=== PATIENT | male | born 1945 | race Caucasian/White ===

== ENCOUNTER → 2016-07-27 | Outpatient (REF) | payer MEDICARE ==
[~2016-07-27] MED LIST: ATEN100T PO; ENOX100I3 SC; EQL50TAB4 PO; GLUC1CAP9 PO; PRAV40TA2 PO; WARF-23 PO; WARF-60 PO; WARF4TAB52 PO; ZINC30TA3 PO
[2016-07-27 12:37] LABS: INR 2.21
== END ==
LOC: M SFHCADAM 08:11
PROVIDERS: ATTEND Physician Assistant Medical
DX: Z51.81 Encounter for therapeutic drug level monitoring (principal); Z79.01 Long term (current) use of anticoagulants

== ENCOUNTER → 2016-08-03 | Outpatient (REF) | payer MEDICARE ==
[2016-08-03 12:57] LABS: INR 2.78
== END ==
LOC: M SFHCADAM 07:59
PROVIDERS: ATTEND Physician Assistant Medical
DX: Z51.81 Encounter for therapeutic drug level monitoring (principal); Z79.01 Long term (current) use of anticoagulants

== ENCOUNTER → 2016-08-17 | Outpatient (REF) | payer MEDICARE ==
[2016-08-17 12:23] LABS: INR 2.83
== END ==
LOC: M SFHCADAM 09:10
PROVIDERS: ATTEND Physician Assistant Medical
DX: Z79.01 Long term (current) use of anticoagulants (principal)

== ENCOUNTER → 2016-09-14 | Outpatient (REF) | payer MEDICARE ==
[2016-09-14 09:26] LABS: INR 3.18
== END ==
LOC: M SFHCADAM 08:00
PROVIDERS: ATTEND Physician Assistant Medical
DX: Z79.01 Long term (current) use of anticoagulants (principal)

== ENCOUNTER → 2016-10-12 | Outpatient (REF) | payer MEDICARE ==
[2016-10-12 12:56] LABS: INR 2.76
== END ==
LOC: M SFHCADAM 07:58
PROVIDERS: ATTEND Physician Assistant Medical
DX: Z51.81 Encounter for therapeutic drug level monitoring (principal); Z95.2 Presence of prosthetic heart valve

== ENCOUNTER → 2016-11-16 | Outpatient (REF) | payer MEDICARE ==
[2016-11-16 12:57] LABS: INR 3.12
== END ==
LOC: M SFHCADAM 12:04
PROVIDERS: ATTEND Physician Assistant Medical
DX: Z79.01 Long term (current) use of anticoagulants (principal)

== ENCOUNTER → 2016-12-15 | Outpatient (REF) | payer MEDICARE ==
[2016-12-15 12:49] LABS: INR 3.29
== END ==
LOC: M SFHCADAM 07:47
PROVIDERS: ATTEND Physician Assistant Medical
DX: Z79.01 Long term (current) use of anticoagulants (principal)

== ENCOUNTER → 2017-01-18 | Outpatient (REF) | payer MEDICARE ==
[2017-01-18 12:22] LABS: INR 2.9
== END ==
LOC: M SFHCADAM 12:00
PROVIDERS: ATTEND Physician Assistant Medical
DX: Z79.01 Long term (current) use of anticoagulants (principal)

== ENCOUNTER → 2017-02-14 | Outpatient (REF) | payer MEDICARE ==
[2017-02-14 13:35] LABS: INR 3.15
== END ==
LOC: M SFHCADAM 07:46
PROVIDERS: ATTEND Physician Assistant Medical
DX: Z79.01 Long term (current) use of anticoagulants (principal)

== ENCOUNTER → 2017-03-22 | Outpatient (REF) | payer MEDICARE ==
[2017-03-22 13:36] LABS: INR 2.79
== END ==
LOC: M SFHCADAM 07:33
PROVIDERS: ATTEND Physician Assistant Medical
DX: Z79.01 Long term (current) use of anticoagulants (principal)

== ENCOUNTER → 2017-03-25 | Outpatient (REF) | payer MEDICARE | LOC: M SFHCADAM 10:16 | PROVIDERS: ATTEND Physician Assistant Medical | DX: Z79.01 Long term (current) use of anticoagulants (principal); Z53.9 Procedure and treatment not carried out, unspecified reason ==

== ENCOUNTER → 2017-04-19 | Outpatient (REF) | payer MEDICARE ==
[2017-04-19 14:22] LABS: INR 2.64
== END ==
LOC: M SFHCADAM 07:38
PROVIDERS: ATTEND Physician Assistant Medical
DX: Z79.01 Long term (current) use of anticoagulants (principal)

== ENCOUNTER → 2017-05-18 | Outpatient (REF) | payer MEDICARE ==
[2017-05-18 13:48] LABS: INR 2.62
== END ==
LOC: M SFHCADAM 08:58
PROVIDERS: ATTEND Physician Assistant Medical
DX: Z79.01 Long term (current) use of anticoagulants (principal); Z95.2 Presence of prosthetic heart valve

== ENCOUNTER → 2017-06-23 | Outpatient (REF) | payer MEDICARE ==
[2017-06-23 13:35] LABS: INR 3.85
== END ==
LOC: M SFHCADAM 07:50
PROVIDERS: ATTEND Physician Assistant Medical
DX: Z51.81 Encounter for therapeutic drug level monitoring (principal); Z79.01 Long term (current) use of anticoagulants; Z95.2 Presence of prosthetic heart valve

== ENCOUNTER → 2017-07-19 | Outpatient (REF) | payer MEDICARE ==
[2017-07-19 12:52] LABS: INR 3.76
== END ==
LOC: M SFHCADAM 10:15
PROVIDERS: ATTEND Physician Assistant Medical
DX: Z79.01 Long term (current) use of anticoagulants (principal); Z95.2 Presence of prosthetic heart valve

== ENCOUNTER → 2017-10-03 | Outpatient (REF) | payer MEDICARE ==
[2017-10-03 19:11] LABS: INR 3.21; PROTHROMBIN TIME 34.4 SECONDS (12.4-14.5)
== END ==
LOC: M SFHCADAM 08:27
DX: Z79.01 Long term (current) use of anticoagulants (principal)
CPT/HCPCS: 85610

== ENCOUNTER → 2017-11-15 | Outpatient (REF) | payer MEDICARE ==
[2017-11-15 20:27] LABS: BASO % 0.6 % (0.0-1.0); EOS # 0.1 10^3/uL (0.0-0.50); EOS % 2.5 % (0.0-3.0); HEMATOCRIT 48.6 % (42.0-52.0); HEMOGLOBIN 16.1 g/dl (13.5-17.5); IMMATURE GRANULOCYTE % 0.2 % (0-3.0); LYMPH % 19.8 % (24.0-44.0); MEAN CORPUSCULAR HEMOGLOBIN 27.6 pg (27.0-33.0); MEAN CORPUSCULAR HGB CONC 33.1 g/dl (32.0-36.5); MEAN CORPUSCULAR VOLUME 83.4 fl (80.0-96.0); MONO # 0.5 10^3/uL (0.0-0.8); MONO % 10.1 % (0.0-5.0); NEUTROPHILS # 3.5 10^3/uL (1.8-7.7); NEUTROPHILS % 66.8 % (36.0-66.0); PLATELET COUNT, AUTOMATED 198 10^3/uL (150-450); RED BLOOD COUNT 5.83 10^6/uL (4.30-6.10); RED CELL DISTRIBUTION WIDTH 15.5 % (11.5-14.5); WHITE BLOOD COUNT 5.3 10^3/uL (4.0-10.0)
[2017-11-15 20:52] LABS: ESTIMATED AVERAGE GLUCOSE 114 MG/DL (60-110); HEMOGLOBIN A1c 5.6 %
[2017-11-15 21:04] LABS: ALBUMIN 3.9 GM/DL (3.2-5.2); ALBUMIN/GLOBULIN RATIO 1.34 (1.00-1.93); ALKALINE PHOSPHATASE 83 U/L (45-117); ALT/SGPT 22 U/L (12-78); ANION GAP 8 MEQ/L (8-16); AST/SGOT 21 U/L (7-37); BILIRUBIN,TOTAL 0.6 MG/DL (0.2-1.0); BLOOD UREA NITROGEN 17 MG/DL (7-18); CALCIUM LEVEL 8.6 MG/DL (8.8-10.2); CARBON DIOXIDE LEVEL 25 MEQ/L (21-32); CHLORIDE LEVEL 109 MEQ/L (98-107); CHOLESTEROL LEVEL 161 MG/DL (<200); CHOLESTEROL RISK RATIO 3.659 (<5); GLOMERULAR FILTRATION RATE > 60.0 (>42); GLUCOSE, FASTING 135 MG/DL (70-100); HDL CHOLESTEROL 44 MG/DL (>40); LDL CHOLESTEROL 70.6 MG/DL (<100); NON-HDL-C 117 MG/DL; SODIUM LEVEL 142 MEQ/L (136-145); TOTAL PROTEIN 6.8 GM/DL (6.4-8.2); TRIGLYCERIDES LEVEL 232 MG/DL (<150)
== END ==
LOC: M SFHCADAM 13:39
DX: E78.4 Other hyperlipidemia (principal); I10 Essential (primary) hypertension; Z79.01 Long term (current) use of anticoagulants; Z79.899 Other long term (current) drug therapy
CPT/HCPCS: 84443

== ENCOUNTER → 2017-11-29 | Outpatient (CLI) | payer MEDICARE | LOC: M CARPUL 09:08 | DX: Z95.2 Presence of prosthetic heart valve (principal) | CPT/HCPCS: 93306 ==

== ENCOUNTER 2018-05-31 18:32 | Emergency (ER) | payer MEDICARE ==
[2018-05-31] MEDS: NITROGLYCERIN 0.4 MG SUBL TABLET SL (18:58)
[2018-05-31 19:13] LABS: BASO % 0.5 % (0.0-1.0); EOS # 0.1 10^3/uL (0.0-0.50); EOS % 1.6 % (0.0-3.0); HEMATOCRIT 49.1 % (42.0-52.0); HEMOGLOBIN 16.3 g/dl (13.5-17.5); IMMATURE GRANULOCYTE % 0.2 % (0-3.0); LYMPH # 1.6 10^3/uL (1.5-4.5); LYMPH % 19.2 % (24.0-44.0); MEAN CORPUSCULAR HEMOGLOBIN 28.7 pg (27.0-33.0); MEAN CORPUSCULAR HGB CONC 33.2 g/dl (32.0-36.5); MEAN CORPUSCULAR VOLUME 86.4 fl (80.0-96.0); MONO # 0.7 10^3/uL (0.0-0.8); NEUTROPHILS # 5.7 10^3/uL (1.8-7.7); NEUTROPHILS % 69.5 % (36.0-66.0); PLATELET COUNT, AUTOMATED 171 10^3/uL (150-450); RED BLOOD COUNT 5.68 10^6/uL (4.30-6.10); RED CELL DISTRIBUTION WIDTH 14.6 % (11.5-14.5); WHITE BLOOD COUNT 8.2 10^3/uL (4.0-10.0)
[2018-05-31] MEDS ORDERED: MORPHINE 4 MG/ML 1ML VIAL/SYRINGE (J2270) As Ordered (19:21)
[2018-05-31 19:23] LABS: INR 2.72; PROTHROMBIN TIME 29.4 SECONDS (12.1-14.4)
[2018-05-31] MEDS: MORPHINE 4 MG/ML 1ML VIAL/SYRINGE (J2270) IV ×2 (19:28→20:04)
[2018-05-31 19:39] LABS: ALBUMIN 3.5 GM/DL (3.2-5.2); ALBUMIN/GLOBULIN RATIO 1.06 (1.00-1.93); ALKALINE PHOSPHATASE 73 U/L (45-117); ALT/SGPT 25 U/L (12-78); ANION GAP 10 MEQ/L (8-16); AST/SGOT 20 U/L (7-37); BILIRUBIN,DIRECT 0.1 MG/DL (0.0-0.2); BILIRUBIN,TOTAL 0.4 MG/DL (0.2-1.0); BLOOD UREA NITROGEN 17 MG/DL (7-18); CALCIUM LEVEL 8.1 MG/DL (8.8-10.2); CARBON DIOXIDE LEVEL 24 MEQ/L (21-32); CHLORIDE LEVEL 105 MEQ/L (98-107); CPK CREATINE PHOSPHOKINASE 102 U/L (39-308); GLOMERULAR FILTRATION RATE 57.3 (>42); GLUCOSE, FASTING 141 MG/DL (70-100); LIPASE 197 U/L (73-393); MB/CK RELATIVE INDEX 3.73 (< OR =4); POTASSIUM SERUM 3.8 MEQ/L (3.5-5.1); SODIUM LEVEL 139 MEQ/L (136-145); TOTAL PROTEIN 6.8 GM/DL (6.4-8.2); TROPONIN I 0.22 NG/ML (< 0.10)
[2018-05-31] MEDS ORDERED: HEPARIN 25,000 UNITS/250 ML D5W BAG (100 UNITS/ML) As Ordered (19:53)
[2018-05-31] MEDS: HEPARIN SOD (PORCINE) 5000 UNITS/ML VIAL IV (19:55)
[2018-05-31] MEDS: HEPARIN DRIP 25,000 UNITS in APPROPRIATE DILUENT 1 EA IV (19:56)
== END 2018-05-31 20:38 | disposition short-term general hospital (02) ==
LOC: M ED 18:32
DX: I21.3 ST elevation (STEMI) myocardial infarction of unspecified site (principal); I51.7 Cardiomegaly; I51.9 Heart disease, unspecified; I10 Essential (primary) hypertension; E78.5 Hyperlipidemia, unspecified; Z95.2 Presence of prosthetic heart valve; Z87.891 Personal history of nicotine dependence; Z79.01 Long term (current) use of anticoagulants; Z79.899 Other long term (current) drug therapy
CPT/HCPCS: J2270

== ENCOUNTER 2018-06-19 11:31 | Inpatient (IN) | payer MEDICARE ==
[~2018-06-19] VITALS: Ht 177.8 cm; Wt 82.4 kg
[2018-06-19] MEDS ORDERED: LOPERAMIDE ORAL SOLN 1MG/5ML UD PO PRN (16:45)
[2018-06-19 19:25] VITALS: BP 138/85
[2018-06-19] MEDS ORDERED: DILT240C77 PO (20:17)
[2018-06-19] MEDS ORDERED: PANT40TA3 PO (20:17)
[2018-06-19] MEDS ORDERED: LOPE2CAP PO (20:17)
[2018-06-19] MEDS ORDERED: WARF4TAB52 PO (20:17)
[2018-06-19] MEDS ORDERED: PROZ10CA7 PO (20:17)
[2018-06-19] MEDS ORDERED: AMIO200T PO (20:17)
[2018-06-19] MEDS ORDERED: METO1TAB7 PO (20:26)
[2018-06-19] MEDS: PRAVASTATIN 20 MG TAB PO SCH (20:52)
[2018-06-19] MEDS ORDERED: WARFARIN SOD 5 MG TAB PO ONE (21:00)
[2018-06-20 05:30] VITALS: BP 133/94
[2018-06-20 07:06] LABS: BASO % 0.3 % (0.0-1.0); EOS # 0.1 10^3/uL (0.0-0.50); EOS % 0.8 % (0.0-3.0); HEMATOCRIT 40.6 % (42.0-52.0); HEMOGLOBIN 12.8 g/dl (13.5-17.5); LYMPH # 0.8 10^3/uL (1.5-4.5); LYMPH % 9.1 % (24.0-44.0); MEAN CORPUSCULAR HEMOGLOBIN 27.6 pg (27.0-33.0); MEAN CORPUSCULAR HGB CONC 31.5 g/dl (32.0-36.5); MEAN CORPUSCULAR VOLUME 87.5 fl (80.0-96.0); MONO # 0.8 10^3/uL (0.0-0.8); MONO % 9.3 % (0.0-5.0); NEUTROPHILS # 7.1 10^3/uL (1.8-7.7); NEUTROPHILS % 80.1 % (36.0-66.0); PLATELET COUNT, AUTOMATED 334 10^3/uL (150-450); RED BLOOD COUNT 4.64 10^6/uL (4.30-6.10); WHITE BLOOD COUNT 8.9 10^3/uL (4.0-10.0)
[2018-06-20 07:14] LABS: PROTHROMBIN TIME 31.8 SECONDS (12.1-14.4)
[2018-06-20 07:26] LABS: ALBUMIN 2.4 GM/DL (3.2-5.2); ALT/SGPT 28 U/L (12-78); BILIRUBIN,TOTAL 0.6 MG/DL (0.2-1.0); BLOOD UREA NITROGEN 20 MG/DL (7-18); CALCIUM LEVEL 8.2 MG/DL (8.8-10.2); CARBON DIOXIDE LEVEL 31 MEQ/L (21-32); CHLORIDE LEVEL 103 MEQ/L (98-107); CREATININE FOR GFR 0.87 MG/DL (0.70-1.30); GLOMERULAR FILTRATION RATE > 60.0 (>42); GLUCOSE, FASTING 88 MG/DL (70-100); POTASSIUM SERUM 3.8 MEQ/L (3.5-5.1); SODIUM LEVEL 140 MEQ/L (136-145); TOTAL PROTEIN 6.5 GM/DL (6.4-8.2)
[2018-06-20] MEDS: PANTOPRAZOLE 40MG TAB (PROTONIX) PO SCH (09:11)
[2018-06-20] MEDS: FLUoxetine 10 MG CAP PO SCH (09:11)
[2018-06-20] MEDS: AMIODARONE 200 MG TAB (PACERONE) PO SCH (09:11)
[2018-06-20] MEDS: METOPROLOL SUCC (TopROL XL) 50MG **XL** TAB PO SCH (09:11)
[2018-06-20 14:00] VITALS: BP 132/80
--- NOTE | 2018-06-20 15:45 | HPEPDOC ---
Supervisor Print Line Note DATE OF ADMISSION: Jun 19, 2018 at 19:25 SOURCE OF ADMISSION INFORMATION: [place]'s record, patient and CHIEF COMPLAINT: stroke HISTORY OF PRESENT ILLNESS: 73M pmh multiple CVAs, aortic valve replacement on Coumadin, HTN who presented to [facility] ED complaining of pressing chest pain and found to have an NSTEMI. His anticoagulation was held and he was placed on Heparin drip in preparation for cardiac catheterization on 06-02-18 where he was found to have moderate disease of the mid to distal LAD, and a severe focal lesion in the mid portion of a small PDA. It was determined that a mechanical intervention was not safe given the proximity of the cardiac lesion to his mechanical valve and he was maintained on medical treatment. Following the procedure he developed left sided weakness, stat CT on 06-03-18 showed "multiple chronic infarcts, atrophy, and chronic small vessel ischemic changes. No acute cortical infarct, mass, or hemorrhage." MRI brain showed "acute tiny MCA infarctions within the parietal lobes and right frontal lobe and additionally within acute lacunar infarction left cerebellum." CTA neck on 06-03-18 demonstrated hemorrhage in the mediastinum and pericardium and CTA head revealed no significant cerebral s tenosis, no aneurysm, dissection or vascular thrombosis. Patient later developed right leg and arm weakness and concern for spinal cord hemorrhage led to ordering MRI spine which was negative for spinal cord lesions. Repeat MRI brain on 06-05-18 showed "new acute infarctions within the left anterior cerebellum, right frontal lobe...progression of acute embolic infarctions involving the bilateral cerebral hemispheres and the left cerebellum". He then developed new onset Atrial Fibrillation and RVR requiring Cardizem drip and was transitioned to Amiodarone. He also had episodes of diarrhea, C diff negative, and required a rectal tube. CT abdomen/Pelvis revealed a distended gallbladder, small bilateral pleural effusions, and an aneurysm of the ascending thoracic aorta. He was started on loperamide and his loose stool resolved. He was evaluated by INDEPENDENT FILM MAKER who placed him on a honey-thickened and mechanical soft diet. REVIEW OF SYSTEMS: The following is a completed review of systems and has been reviewed. Review of systems otherwise unremarkable. PAIN: Patient self reports no pain EYES: Negative EARS, NOSE, & THROAT: +dysphagia CARDIOVASCULAR: +AVR and Afib, recent NSTEMI PULMONARY: Negative. Denies shortness of breath, +cough GASTROINTESTINAL: + diarrhea improving GENITOURINARY: no retention or dysuria MUSCULOSKELETAL: left LE weakness NEUROLOGICAL: left sided hemiparesis HEMATOLOGICAL: on Coumadin SKIN: intact PSYCHIATRIC: Unremarkable All other review of systems found to be negative. PAST MEDICAL HISTORY: multiple CVAs, aortic valve replacement on Coumadin, HTN, depression PAST SURGICAL HISTORY: Aortic Valve replacement 33 years ago ALLERGIES: Please see below. MEDICATIONS: Please see below. 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 GENERAL: Pleasant and cooperative. No acute distress. HEENT: PERRL. Extraocular movements intact. Clear conjunctiva, left sided facial droop CARDIOVASCULAR: Regular rate and rhythm. No murmurs, rubs, or gallops LUNGS: Mostly clear to auscultation bilaterally. No wheezes, however + rhonchi, +cough ABDOMEN:Soft, nontender, nondistended. Positive bowel sounds. Normal active bowel sounds NEUROLOGICAL: Alert and oriented times three. Cranial nerves II through XII jarad ssly intact with eyebrow sparing left facial droop, Sensation grossly intact in all 4 limbs EXTREMITIES: 5/5 strength left elbow flexors/extensors, wrist extensors, hygiene teacher and abduction 3/5 right elbow flexion and extension, 3+ wrist extension, 3+ hygiene teacher 5-/5 left hip flexors, knee extensors, ankle DF and EHL, plantar flexion 1/5 right hip flexion, knee extensors, ankle DF and EHL, trace DF SKIN: intact no rashes LABS: INR 2.93 on 06/18/18 C diff negative IMAGING: Imaging documentation personally reviewed by record. FUNCTIONAL STATUS: Premorbid: Independent with all activities of daily life as well as mobility On Admission: Max-Total assist for all functional transfers, unable to ambulate given right LE paresis. GOALS: Modified independent from wheelchair level, Contact guard with RW for household distances, Modified independent with dressing, grooming, Supervision for bathing, medical optimization, family training, assess for DMEs. ASSESSMENT:73-year-old M with past medical history of Aortic Valve replacement, Afib, multiple CVAs who presents status post NSTEMI complicated by stroke PLAN: 1. 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, INDEPENDENT FILM MAKER assess for DME 2. Neuro: s/p recent bilateral embolic strokes in setting of newly diagnosed Afib and AVR, continue statin, Coumadin, rate and rhythm control -Fluoxetine for motor recovery 3. Cardiac: pmh aVR with mechanical valve, not followed by drapery maker, will refer to Dr. Alfaro- on Coumadin, diltiazem, amiodarone, and beta michelle family medicine consulted, monitor daily INRs goal 2.5-3.5 4. GI: recent hx of diarrhea, Loperamide prn loose stool, monitor for signs of infection 5. GI ppx: Protonix 6. : f/u admission UA and Ucx 7. Dispo: TBD POST ADMISSION PHYSICIAN EVALUATION: Medical and functional status: Description of medical status, medical assessment: As above. Rehabilitation diagnosis and current and prior cold morbid medical conditions as above. Risk of complications and plans to mitigate them as above. Description of functional status current status is as above. Prior status as above. Status compared to preadmission: There are no clinically significant differences between the patient's current status and the information described on the preadmission screening document. Treatment plan anticipated: Treatment plan is as described above. Required disciplines including physical therapy, occupational therapy, others as noted above. Intensity of services: 3 hours a day, 6 days a week. Special considerations: There are no specific special or safety considerations that would likely preclude immediate implementation of an intensive rehabilitation program or subsequently influence the plan of care. ATTESTATION: Considering all the information above, it is my best judgment that this patient requires intensive rehabilitation therapy as described above and an inpatient hospital environment due to the complexity of nursing, medical, and rehabilitation needs required by the patient. Furthermore, this patient can reasonably be expected to participate in an benefit from an inpatient rehabilitation stay with an interdisciplinary team approach to the delivery of rehabilitation care under the direction and supervision of rehabilitation physician. PROGNOSIS: Excellent ESTIMATED LENGTH OF STAY:18-21 days. PROJECTED DISCHARGE DESTINATION: Home with family support and any durable medical equipment required to increase functional safety and mobility. TIME SPENT COUNSELING AND COORDINATING INITIAL CARE: Greater than 70 minutes. Vital Signs Vital Sign - Last 24 Hours 06/19/18 06/20/18 06/20/18 19:25 05:30 09:11 Temp 97.4 98.5 Pulse 93 91 98 Resp B/P (MAP) 138/85 (102) 133/94 (107) 141/92 Pulse Ox 93 91 O2 Delivery Room Air Room Air Laboratory Data CBC/BMP Laboratory Tests 06/20/18 06:29 Red Blood Count 4.64, Mean Corpuscular Volume 87.5, Mean Corpuscular Hemoglobin 27.6, Mean Corpuscular Hemoglobin Concent 31.5 L, Red Cell Distribution Width 15.3 H, Neutrophils (%) (Auto) 80.1 H, Lymphocytes (%) (Auto) 9.1 L, Monocytes (%) (Auto) 9.3 H, Eosinophils (%) (Auto) 0.8, Basophils (%) (Auto) 0.3, Neutrophils # (Auto) 7.1, Lymphocytes # (Auto) 0.8 L, Monocytes # (Auto) 0.8, Eosinophils # (Auto) 0.1, Basophils # (Auto) 0.0, Calcium Level 8.2 L, Aspartate Amino Transf (AST/SGOT) 14, Alanine Aminotransferase (ALT/SGPT) 28, Alkaline Phosphatase 87, Total Bilirubin 0.6, Total Protein 6.5, Albumin 2.4 L Labs 24H Laboratory Tests 2 06/20/18 06:29: Immature Granulocyte % (Auto) 0.4, White Blood Count 8.9, Red Blood Count 4.64, Hemoglobin 12.8L, Hematocrit 40.6L, Mean Corpuscular Volume 87.5, Mean Corpuscular Hemoglobin 27.6, Mean Corpuscular Hemoglobin Concent 31.5L, Red Cell Distribution Width 15.3H, Platelet Count 334, Neutrophils (%) (Auto) 80.1H, Lymphocytes (%) (Auto) 9.1L, Monocytes (%) (Auto) 9.3H, Eosinophils (%) (Auto) 0.8, Basophils (%) (Auto) 0.3, Neutrophils # (Auto) 7.1, Lymphocytes # (Auto) 0.8L, Monocytes # (Auto) 0.8, Eosinophils # (Auto) 0.1, Basophils # (Auto) 0.0, Nucleated Red Blood Cells % (auto) 0.0, Prothrombin Time 31.8H, Prothromb Time International Ratio 3.00, Anion Gap 6L, Glomerular Filtration Rate > 60.0, Blood Urea Nitrogen 20H, Creatinine 0.87, Sodium Level 140, Potassium Level 3.8, Chlor hortensia Level 103, Carbon Dioxide Level 31, Calcium Level 8.2L, Aspartate Amino Transf (AST/SGOT) 14, Alanine Aminotransferase (ALT/SGPT) 28, Alkaline Phosphatase 87, Total Bilirubin 0.6, Total Protein 6.5, Albumin 2.4L, Albumin/Globulin Ratio 0.59L Home Medications Scheduled Amiodarone HCl (Amiodarone HCl) 200 Mg Tab, 200 MG PO DAILY, (Reported) Diltiazem Hcl (Diltiazem HCl ER) 240 Mg Cap, 240 MG PO DAILY, (Reported) Fluoxetine HCl (Prozac) 10 Mg Cap, 10 MG PO DAILY, (Reported) Metoprolol Succinate (Metoprolol Succinate ER) 50 Mg Tab, 50 MG PO DAILY, (Reported) Pantoprazole Sodium (Pantoprazole Sodium) 40 Mg Tab, 40 MG PO DAILY, (Reported) Pravastatin Sod (Pravastatin Sodium) 40 Mg Tab, 40 MG PO QHS, (Reported) Warfarin Sod (Warfarin Sodium) 6 Mg Tab, 6 MG PO Q2D, (Reported) Warfarin Sod (Warfarin Sodium) 5 Mg Tab, 5 MG PO Q2D, (Reported) TAKES WITH 0.5MG FOR 5.5MG TOTAL Warfarin Sod (Warfarin Sodium) 1 Mg Tab, 0.5 MG PO Q2D, (Reported) TAKES WITH 5MG FOR 5.5MG TOTAL Scheduled PRN Loperamide HCl (Loperamide HCl) 2 Mg Tab, 2 MG PO TID PRN for DIARRHEA, (Reported) Allergies Coded Allergies: No Known Allergies (Unverified , 07/15/16) JAC LUNA MD Jun 20, 2018 11:04
--- NOTE | 2018-06-20 15:46 | NUR ---
Pt seen this day for clinical swallow eval. Recommendation: Mechanical Soft (NDD Level 3) solids and honey-thick liquids. Rx: whole with honey-thick liquids. Cookie swallow recommended to r/o silent aspiration, d/t significant risk of silent aspiration following onset of CVA. Addendum: 06/20/18 at 1547 by SEBASTIEN CRAFT [facility] SP Amended: Links added.
--- NOTE | 2018-06-20 16:32 | REP ---
Clinical: Cough. Technique: AP and lateral. Findings: Mediastinum and cardiac silhouette are stable. Lung aguilar demonstrate chronic interstitial changes. No obvious acute consolidation, effusion, or pneumothorax. Skeletal structures intact. Evidence of prior sternotomy and aortic valve repair. Impression: Chronic interstitial changes. No acute cardiopulmonary process appreciated. Electronically Signed by Edmond Pro MD 06/20/2018 04:22 P
[2018-06-20 17:03] LABS: APPEARANCE, URINE CLOUDY (CLEAR); BACTERIA, URINE AUTO 3+ (NEGATIVE); BILIRUBIN, URINE AUTO NEGATIVE (NEGATIVE); BLOOD, URINE BLOOD NEGATIVE (NEGATIVE); COLOR, URINE YELLOW (YELLOW); GLUCOSE, URINE (UA) AUTO NEGATIVE (NEGATIVE); KETONE, URINE AUTO NEGATIVE (NEGATIVE); LEUKOCYTE ESTERASE, URINE AUTO 3+ (NEGATIVE); NITRITE, URINE AUTO NEGATIVE (NEGATIVE); PROTEIN, URINE AUTO NEGATIVE (NEGATIVE); RBC, URINE AUTO 11 /HPF (0-3); SPECIFIC GRAVITY URINE AUTO 1.019 (1.002-1.035); SQUAMOUS EPITHELIAL CELL UR AU 0 /HPF (0-6); WBC, URINE AUTO 151 /HPF (0-3)
[2018-06-20 20:00] VITALS: BP 132/86
[2018-06-20] MEDS: PRAVASTATIN 20 MG TAB PO SCH (20:32)
[2018-06-20] MEDS: zolPIDEM TARTRATE 5 MG TAB PO SCH (20:32)
[2018-06-21 06:00] VITALS: BP 140/89
[2018-06-21 07:10] LABS: BASO % 0.4 % (0.0-1.0); EOS # 0.1 10^3/uL (0.0-0.50); EOS % 1.6 % (0.0-3.0); HEMATOCRIT 39.9 % (42.0-52.0); HEMOGLOBIN 12.7 g/dl (13.5-17.5); LYMPH # 0.9 10^3/uL (1.5-4.5); LYMPH % 12.3 % (24.0-44.0); MEAN CORPUSCULAR HEMOGLOBIN 27.7 pg (27.0-33.0); MEAN CORPUSCULAR HGB CONC 31.8 g/dl (32.0-36.5); MEAN CORPUSCULAR VOLUME 87.1 fl (80.0-96.0); MONO # 0.7 10^3/uL (0.0-0.8); MONO % 9.7 % (0.0-5.0); NEUTROPHILS # 5.2 10^3/uL (1.8-7.7); NEUTROPHILS % 75.6 % (36.0-66.0); PLATELET COUNT, AUTOMATED 261 10^3/uL (150-450); RED BLOOD COUNT 4.58 10^6/uL (4.30-6.10); WHITE BLOOD COUNT 6.9 10^3/uL (4.0-10.0)
[2018-06-21 07:18] LABS: INR 3.03; PROTHROMBIN TIME 32.1 SECONDS (12.1-14.4)
[2018-06-21 07:24] LABS: BLOOD UREA NITROGEN 20 MG/DL (7-18); CALCIUM LEVEL 8.4 MG/DL (8.8-10.2); CARBON DIOXIDE LEVEL 29 MEQ/L (21-32); CHLORIDE LEVEL 104 MEQ/L (98-107); CREATININE FOR GFR 0.81 MG/DL (0.70-1.30); GLOMERULAR FILTRATION RATE > 60.0 (>42); GLUCOSE, FASTING 100 MG/DL (70-100); POTASSIUM SERUM 3.6 MEQ/L (3.5-5.1); SODIUM LEVEL 138 MEQ/L (136-145)
[2018-06-21] MEDS: METOPROLOL SUCC (TopROL XL) 50MG **XL** TAB PO SCH (07:49)
[2018-06-21] MEDS: FLUoxetine 10 MG CAP PO SCH (07:50)
[2018-06-21] MEDS: PANTOPRAZOLE 40MG TAB (PROTONIX) PO SCH (07:50)
[2018-06-21] MEDS: AMIODARONE 200 MG TAB (PACERONE) PO SCH (07:50)
[2018-06-21] MEDS ORDERED: E-Z-PAQUE 96% w/w SUSP 176GM BTL As Ordered ONE (11:18)
[2018-06-21] MEDS ORDERED: VARIBAR NECTAR 40% w/v 240ML SUSP BTL As Ordered ONE (11:18)
[2018-06-21] MEDS ORDERED: VARIBAR PUDDING 40% w/v 230ML TUBE As Ordered ONE (11:18)
[2018-06-21] MEDS ORDERED: BARIUM SULFATE 700 MG TABLET (E-Z-DISK) As Ordered ONE (11:45)
--- NOTE | 2018-06-21 13:11 | REP ---
MODIFIED BARIUM SWALLOW: 06/21/2018. Clinical history: Dysphagia. Findings: Fluoroscopy provided for modified barium swallow conducted by Elsy Welch and Lucrecia Recinos of the speech pathology department. Lateral fluoroscopy with honey, nectar and thin liquids and multiple swallows were imaged. The bolus formation was adequate. There was pooling in the valleculae which cleared promptly with a secondary swallow. There was no laryngeal penetration or aspiration. The barium tablet was promptly swallowed with applesauce. Please see the speech pathology report for full report and recommendations. Fluoroscopy time: 1.6 minutes. Electronically Signed by Dimitry Welch MD 06/21/2018 01:02 P
[2018-06-21 14:00] VITALS: BP 135/76
--- NOTE | 2018-06-21 14:48 | NUR ---
MBSS completed today to rule out silent aspiration. Pt presented with WNL for oral and pharyngeal phases of swallow. Med administration completed with thin liquid wash and puree assist. Both modalities presented WNL. Recommend: Regular solids and thin liquids. Please cut foods to small bite size pieces. OOB and supervision for meals. Meds can be in puree assist or liquid wash to Pt preference. Addendum: 06/21/18 at 1451 by SEBASTIEN CRAFT [facility] SP Amended: Links added.
--- NOTE | 2018-06-21 17:18 | IPNPDOC ---
PM&R Progress Note DATE OF SERVICE: Jun 21, 2018 Bead Trimmer Progress Note Subjective; PAtient reports he feels ok today, denies pain, and was able to upgrade his diet to regular with thins. REVIEW OF SYSTEMS: The following is a completed review of systems and has been reviewed. Review of systems otherwise unremarkable. PAIN: Patient self reports no pain EYES: Negative EARS, NOSE, & THROAT: +dysphagia CARDIOVASCULAR: +AVR and Afib, recent NSTEMI PULMONARY: Negative. Denies shortness of breath, +cough GASTROINTESTINAL: + diarrhea improving GENITOURINARY: no retention or dysuria MUSCULOSKELETAL: left LE weakness NEUROLOGICAL: left sided hemiparesis HEMATOLOGICAL: on Coumadin SKIN: intact PSYCHIATRIC: Unremarkable All other review of systems found to be negative. PHYSICAL EXAMINATION: VITAL SIGNS: Please see below. GENERAL: Pleasant and cooperative. No acute distress. HEENT: PERRL. Extraocular movements intact. Clear conjunctiva, left sided facial droop CARDIOVASCULAR: Regular rate and rhythm. No murmurs, rubs, or gallops LUNGS: Mostly clear to auscultation bilaterally. No wheezes, however + rhonchi, +cough ABDOMEN:Soft, nontender, nondistended. Positive bowel sounds. Normal active bowel sounds NEUROLOGICAL: Alert and oriented times three. Cranial nerves II through XII grossly intact with eyebrow sparing left facial droop, Sensation grossly intact in all 4 limbs EXTREMITIES: 5/5 strength left elbow flexors/extensors, wrist extensors, cutter in and abduction 3/5 right elbow flexion and extension, 3+ wrist extension, 3+ cutter in 5-/5 left hip flexors, knee extensors, ankle DF and EHL, plantar flexion 1/5 right hip flexion, knee extensors, ankle DF and EHL, trace DF SKIN: intact no rashes ASSESSMENT:73-year-old M with past medical history of Aortic Valve replacement, Afib, multiple CVAs who presents status post NSTEMI complicated by stroke PLAN: 1. 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, LEARNING SUPPORT SERVICES DIRECTOR assess for DME, MBS today and upgrade to regular diet and thins 2. Neuro: s/p recent bilateral embolic strokes in setting of newly diagnosed Kae b and AVR, continue statin, Coumadin, rate and rhythm control -increased Fluoxetine from 10mg to 20mg for motor recovery 3. Cardiac: pmh aVR with mechanical valve, not followed by bead trimmer, ayush fernandez to Dr. Alfaro- on Coumadin, diltiazem, amiodarone, and beta michelle family medicine consulted, monitor daily INRs goal 2.5-3.5 4. GI: recent hx of diarrhea, Loperamide prn loose stool, monitor for signs of infection 5. GI ppx: Protonix 6. : f/u admission UA and Ucx 7. Resp: cough improving, CXR 06-20-18 negative for acute pathology 8. Dispo: TBD Allergies Coded Allergies: No Known Allergies (Unverified , 07/15/16) Vital Signs Vital Signs Date Time Temp Pulse Resp B/P (MAP) Pulse Ox O2 Delivery O2 Flow Rate FiO2 06/21/18 14:00 97.2 87 19 135/76 (95) 96 Room Air Laboratory Data CBC/BMP Laboratory Tests 06/21/18 06:34 Red Blood Count 4.58, Mean Corpuscular Volume 87.1, Mean Corpuscular Hemoglobin 27.7, Mean Corpuscular Hemoglobin Concent 31.8 L, Red Cell Distribution Width 15.3 H, Neutrophils (%) (Auto) 75.6 H, Lymphocytes (%) (Auto) 12.3 L, Monocytes (%) (Auto) 9.7 H, Eosinophils (%) (Auto) 1.6, Basophils (%) (Auto) 0.4, Neutrophils # (Auto) 5.2, Lymphocytes # (Auto) 0.9 L, Monocytes # (Auto) 0.7, Eosinophils # (Auto) 0.1, Basophils # (Auto) 0.0, Calcium Level 8.4 L Labs 24H Laboratory Tests 2 06/21/18 06:34: Immature Granulocyte % (Auto) 0.4, White Blood Count 6.9, Red Blood Count 4.58, Hemoglobin 12.7L, Hematocrit 39.9L, Mean Corpuscular Volume 87.1, Mean Corpuscular Hemoglobin 27.7, Mean Corpuscular Hemoglobin Concent 31.8L, Red Cell Distribution Width 15.3H, Platelet Count 261, Neutrophils (%) (Auto) 75.6H, Lymphocytes (%) (Auto) 12.3L, Monocytes (%) (Auto) 9.7H, Eosinophils (%) (Auto) 1.6, Basophils (%) (Auto) 0.4, Neutrophils # (Auto) 5.2, Lymphocytes # (Auto) 0.9L, Monocytes # (Auto) 0.7, Eosinophils # (Auto) 0.1, Basophils # (Auto) 0.0, Nucleated Red Blood Cells % (auto) 0.0, Prothrombin Time 32.1H, Prothromb Time International Ratio 3.03, Anion Gap 5L, Glomerular Filtration Rate > 60.0, Blood Urea Nitrogen 20H, Creatinine 0.81, Sodium Level 138, Potassium Level 3.6, Chloride Level 104, Carbon Dioxide Level 29, Calcium Level 8.4L Microbiology Microbiology 06/20/18 Urine Culture, Received Pending Current Medications Current Medications Current Medications Acetaminophen (Tylenol Tab) 650 mg Q6HP PRN PO PAIN / FEVER; Start 06/19/18 at 16:45 Amiodarone HCl (Pacerone, Cordarone) 200 mg DAILY PO Last administered on 06/21/18at 07:50; Start 06/20/18 at 09:00 Diltiazem HCl (Cardizem Cd) 240 mg DAILY PO Last administered on 06/21/18at 07:50; Start 06/20/18 at 09:00 Fluoxetine HCl (PROzac) 10 mg DAILY PO Last administered on 06/21/18at 07:50; Start 06/20/18 at 09:00; Stop 06/21/18 at 16:29; Status DC Fluoxetine HCl (PROzac) 20 mg DAILY PO ; Start 06/22/18 at 09:00 Home Med (Med Rec Complete!) ASDIRECTED XX ; Start 06/19/18 at 20:30; Stop 06/19/18 at 20:30; Status DC Loperamide HCl (Imodium Liquid) 2 mg ASDIRECTED PRN PO DIARRHEA; Start 06/19/18 at 16:45 Metoprolol Succinate (TopROL XL) 50 mg DAILY PO Last administered on 06/21/18at 07:49; Start 06/20/18 at 09:00 Pantoprazole Sodium (Protonix) 40 mg DAILY PO Last administered on 06/21/18at 07:50; Start 06/20/18 at 09:00 Pravastatin Sodium (Pravachol) 40 mg QHS PO Last administered on 06/20/18at 20:32; Start 06/19/18 at 21:00 Zolpidem Tartrate (Ambien) 5 mg QHS PO Last administered on 06/20/18at 20:32; Start 06/20/18 at 21:00 JAC LUNA MD Jun 21, 2018 17:18
[2018-06-21 20:00] VITALS: BP 138/87
[2018-06-21] MEDS: zolPIDEM TARTRATE 5 MG TAB PO SCH (21:23)
[2018-06-21] MEDS: PRAVASTATIN 20 MG TAB PO SCH (21:23)
[2018-06-22 06:00] VITALS: BP 160/96
[2018-06-22 07:10] LABS: INR 2.14; PROTHROMBIN TIME 24.3 SECONDS (12.1-14.4)
[2018-06-22] MEDS: PANTOPRAZOLE 40MG TAB (PROTONIX) PO SCH (09:09)
[2018-06-22] MEDS: METOPROLOL SUCC (TopROL XL) 50MG **XL** TAB PO SCH (09:09)
[2018-06-22] MEDS: FLUoxetine 20 MG CAP PO SCH (09:09)
[2018-06-22] MEDS: AMIODARONE 200 MG TAB (PACERONE) PO SCH (09:09)
[2018-06-22 14:00] VITALS: BP 110/70
--- NOTE | 2018-06-22 14:55 | IPNPDOC ---
PM&R Progress Note DATE OF SERVICE: Jun 22, 2018 Vinyl Dipper Progress Note Subjective; Patient reports he is feeling well overall and attempting to use his right hand and arm for functional tasks. He still has a cough, but denies shortness of breath, fevers or chills. REVIEW OF SYSTEMS: The following is a completed review of systems and has been reviewed. Review of systems otherwise unremarkable. PAIN: Patient self reports no pain EYES: Negative EARS, NOSE, & THROAT: +dysphagia CARDIOVASCULAR: +AVR and Afib, recent NSTEMI PULMONARY: Negative. Denies shortness of breath, +cough GASTROINTESTINAL: + diarrhea improving GENITOURINARY: no retention or dysuria MUSCULOSKELETAL: left LE weakness NEUROLOGICAL: left sided hemiparesis HEMATOLOGICAL: on Coumadin SKIN: intact PSYCHIATRIC: Unremarkable All other review of systems found to be negative. PHYSICAL EXAMINATION: VITAL SIGNS: Please see below. GENERAL: Pleasant and cooperative. No acute distress. HEENT: PERRL. Extraocular movements intact. Clear conjunctiva, left sided facial droop CARDIOVASCULAR: Regular rate and rhythm. No murmurs, rubs, or gallops LUNGS: Mostly clear to auscultation bilaterally. No wheezes, however , +cough, transmitted upper airway sounds ABDOMEN:Soft, nontender, nondistended. Positive bowel sounds. Normal active bowel sounds NEUROLOGICAL: Alert and oriented times three. Cranial nerves II through XII grossly intact with eyebrow sparing left facial droop, Sensation grossly intact in all 4 limbs EXTREMITIES: 5/5 strength left elbow flexors/extensors, wrist extensors, automatic equipment technician and abduction 3+/5 right elbow flexion and extension, 3+ wrist extension, 3+ automatic equipment technician 5-/5 left hip flexors, knee extensors, ankle DF and EHL, plantar flexion 1/5 right hip flexion, knee extensors, ankle DF and EHL, trace DF SKIN: intact no rashes ASSESSMENT:73-year-old M with past medical history of Aortic Valve replacement, Afib, multiple CVAs who presents status post NSTEMI complicated by stroke PLAN: 1. 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, PERLITE GRINDER assess for DME, MBS today and upgrade to regular diet and thins 2. Neuro: s/p recent bilateral embolic strokes in setting of newly diagnosed Afib and AVR, continue statin, Coumadin, rate and rhythm control -increased Fluoxetine from 10mg to 20mg for motor recovery 3. Cardiac: pmh aVR with mechanical valve, not followed by tube lancer, will refer to Dr. Alfaro- on Coumadin, diltiazem, amiodarone, and beta michelle family medicine consulted, monitor daily INRs goal 2.5-3.5 4. GI: recent hx of diarrhea, Loperamide prn loose stool, monitor for signs of infection 5. GI ppx: Protonix 6. : f/u admission UA and Ucx, still pending, denies dysuria 7. Resp: cough persisting, CXR 06-20-18 negative for acute pathology, breathing treatments ordered and Guaifenesin, afebrile , no leukocytosis, likely upper airway congestion 8. Dispo: 07-12-18 Allergies Coded Allergies: No Known Allergies (Unverified , 07/15/16) Vital Signs Vital Signs Date Time Temp Pulse Resp B/P (MAP) Pulse Ox O2 Delivery O2 Flow Rate FiO2 06/22/18 09:09 83 160/96 06/22/18 06:00 97.5 18 92 Room Air Laboratory Data Labs 24H Laboratory Tests 2 06/22/18 06:41: Prothrombin Time 24.3H, Prothromb Time International Ratio 2.14 Microbiology Microbiology 06/20/18 Urine Culture, Received Pending Current Medications Current Medications Current Medications Acetaminophen (Tylenol Tab) 650 mg Q6HP PRN PO PAIN / FEVER; Start 06/19/18 at 16:45 Albuterol/ Ipratropium (Duoneb (Ipr 0.5mg/Alb 2.5mg)) 3 ml RBID NEB ; Start 06/22/18 at 20:00 Amiodarone HCl (Pacerone, Cordarone) 200 mg DAILY PO Last administered on 06/22/18at 09:09; Start 06/20/18 at 09:00 Diltiazem HCl (Cardizem Cd) 240 mg DAILY PO Last administered on 06/22/18at 09:09; Start 06/20/18 at 09:00 Fluoxetine HCl (PROzac) 10 mg DAILY PO Last administered on 06/21/18at 07:50; Start 06/20/18 at 09:00; Stop 06/21/18 at 16:29; Status DC Fluoxetine HCl (PROzac) 20 mg DAILY PO Last administered on 06/22/18at 09:09; Start 06/22/18 at 09:00 Guaifenesin (Mucinex Tab Er) 600 mg BID PO ; Start 06/22/18 at 09:00 Home Med (Med Rec Complete!) ASDIRECTED XX ; Start 06/19/18 at 20:30; Stop 06/19/18 at 20:30; Status DC Loperamide HCl (Imodium Liquid) 2 mg ASDIRECTED PRN PO DIARRHEA; Start 06/19/18 at 16:45 Metoprolol Succinate (TopROL XL) 50 mg DAILY PO Last administered on 06/22/18at 09:09; Start 06/20/18 at 09:00 Pantoprazole Sodium (Protonix) 40 mg DAILY PO Last administered on 06/22/18at 09:09; Start 06/20/18 at 09:00 Pravastatin Sodium (Pravachol) 40 mg QHS PO Last administered on 06/21/18at 21:23; Start 06/19/18 at 21:00 Zolpidem Tartrate (Ambien) 5 mg QHS PO Last administered on 06/21/18at 21:23; Start 06/20/18 at 21:00 JAC LUNA MD Jun 22, 2018 14:55
[2018-06-22] MEDS ORDERED: WARFARIN SOD 5 MG TAB PO ONE (17:00)
[2018-06-22] MEDS: guaiFENesin ER 600 MG TAB PO SCH ×2 (17:22→21:00)
[2018-06-22 20:00] VITALS: BP 135/80
[2018-06-22] MEDS: IPRATROPIUM 0.5MG/ALBUTEROL 2.5MG INH SOL UD 3ML (DUONEB)(J7620) NEB SCH (20:00)
[2018-06-22] MEDS: PRAVASTATIN 20 MG TAB PO SCH (21:05)
[2018-06-22] MEDS: zolPIDEM TARTRATE 5 MG TAB PO SCH (21:05)
[2018-06-23 06:00] VITALS: BP 122/78
[2018-06-23 06:44] LABS: BASO % 0.4 % (0.0-1.0); EOS # 0.2 10^3/uL (0.0-0.50); EOS % 2.2 % (0.0-3.0); HEMATOCRIT 39.1 % (42.0-52.0); HEMOGLOBIN 12.4 g/dl (13.5-17.5); LYMPH # 0.9 10^3/uL (1.5-4.5); LYMPH % 11.8 % (24.0-44.0); MEAN CORPUSCULAR HEMOGLOBIN 27.5 pg (27.0-33.0); MEAN CORPUSCULAR HGB CONC 31.7 g/dl (32.0-36.5); MEAN CORPUSCULAR VOLUME 86.7 fl (80.0-96.0); MONO # 0.7 10^3/uL (0.0-0.8); MONO % 9.3 % (0.0-5.0); NEUTROPHILS # 5.5 10^3/uL (1.8-7.7); NEUTROPHILS % 75.9 % (36.0-66.0); PLATELET COUNT, AUTOMATED 241 10^3/uL (150-450); RED BLOOD COUNT 4.51 10^6/uL (4.30-6.10); WHITE BLOOD COUNT 7.2 10^3/uL (4.0-10.0)
[2018-06-23 06:57] LABS: INR 1.87; PROTHROMBIN TIME 21.9 SECONDS (12.1-14.4)
[2018-06-23 07:01] LABS: BLOOD UREA NITROGEN 16 MG/DL (7-18); CARBON DIOXIDE LEVEL 29 MEQ/L (21-32); CHLORIDE LEVEL 104 MEQ/L (98-107); GLOMERULAR FILTRATION RATE > 60.0 (>42); GLUCOSE, FASTING 90 MG/DL (70-100); POTASSIUM SERUM 3.6 MEQ/L (3.5-5.1); SODIUM LEVEL 140 MEQ/L (136-145)
[2018-06-23] MEDS: IPRATROPIUM 0.5MG/ALBUTEROL 2.5MG INH SOL UD 3ML (DUONEB)(J7620) NEB SCH ×2 (08:10→22:16)
[2018-06-23] MEDS: FLUoxetine 20 MG CAP PO SCH (10:04)
[2018-06-23] MEDS: guaiFENesin ER 600 MG TAB PO SCH ×2 (10:04→20:04)
[2018-06-23] MEDS: PANTOPRAZOLE 40MG TAB (PROTONIX) PO SCH (10:04)
[2018-06-23] MEDS: AMIODARONE 200 MG TAB (PACERONE) PO SCH (10:04)
[2018-06-23] MEDS: METOPROLOL SUCC (TopROL XL) 50MG **XL** TAB PO SCH (10:05)
[2018-06-23] MEDS: LevoFLOXacin 750 MG TABLET PO SCH (13:14)
[2018-06-23 14:00] VITALS: BP 129/64
--- NOTE | 2018-06-23 15:09 | IPNPDOC ---
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 He is able to assist OT with putting on his shirt and is continuing to functionally use his right arm. REVIEW OF SYSTEMS: The following is a completed review of systems and has been reviewed. Review of systems otherwise unremarkable. PAIN: Patient self reports no pain EYES: Negative EARS, NOSE, & THROAT: +dysphagia CARDIOVASCULAR: +AVR and Afib, recent NSTEMI PULMONARY: Negative. Denies shortness of breath, +cough GASTROINTESTINAL: + diarrhea improving GENITOURINARY: no retention or dysuria MUSCULOSKELETAL: left LE weakness NEUROLOGICAL: left sided hemiparesis HEMATOLOGICAL: on Coumadin SKIN: intact PSYCHIATRIC: Unremarkable All other review of systems found to be negative. PHYSICAL EXAMINATION: VITAL SIGNS: Please see below. GENERAL: Pleasant and cooperative. No acute distress. HEENT: PERRL. Extraocular movements intact. Clear conjunctiva, left sided facial droop CARDIOVASCULAR: Regular rate and rhythm. No murmurs, rubs, or gallops LUNGS: Mostly clear to auscultation bilaterally. No wheezes, however , +cough, transmitted upper airway sounds ABDOMEN:Soft, nontender, nondistended. Positive bowel sounds. Normal active bowel sounds NEUROLOGICAL: Alert and oriented times three. Cranial nerves II through XII grossly intact with eyebrow sparing left facial droop, Sensation grossly intact in all 4 limbs EXTREMITIES: 5/5 strength left elbow flexors/extensors, wrist extensors, tieing machine operator and abduction 3+/5 right elbow flexion and extension, 3+ wrist extension, 3+ tieing machine operator 5-/5 left hip flexors, knee extensors, ankle DF and EHL, plantar flexion 1/5 right hip flexion, knee extensors, ankle DF and EHL, trace DF SKIN: intact no rashes ASSESSMENT:73-year-old M with past medical history of Aortic Valve replacement, Afib, multiple CVAs who presents status post NSTEMI complicated by stroke PLAN: 1. 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 Neuro: s/p recent bilateral embolic strokes in setting of newly diagnosed Afib and AVR, continue statin, Coumadin, rate and rhythm control -increased Fluoxetine from 10mg to 20mg for motor recovery and mood 3. Cardiac: pmh aVR with mechanical valve, not followed by sorter operator, will refer to Dr. Alfaro- on Coumadin, diltiazem, amiodarone, and beta [facility] family medicine consulted, monitor daily INRs goal 2.5-3.5 4. GI: recent hx of diarrhea, Loperamide prn loose stool, monitor for signs of infection-stable 5. GI ppx: Protonix 6. : f/u admission UA and Ucx positive for E Faecalis, started on 10 day course of Levofloxacin 7. Resp: cough persisting, CXR 06-20-18 negative for acute pathology, breathing treatments ordered and Guaifenesin, afebrile , no leukocytosis, likely upper airway congestion, continue Guaifenesin 8. Dispo: 07-12-18 Allergies Coded Allergies: No Known Allergies (Unverified , 07/15/16) Vital Signs Vital Signs Date Time Temp Pulse Resp B/P (MAP) Pulse Ox O2 Delivery O2 Flow Rate FiO2 06/23/18 10:05 84 122/78 06/23/18 06:00 98.7 19 96 Room Air Laboratory Data CBC/BMP Laboratory Tests 06/23/18 06:30 Red Blood Count 4.51, Mean Corpuscular Volume 86.7, Mean Corpuscular Hemoglobin 27.5, Mean Corpuscular Hemoglobin Concent 31.7 L, Red Cell Distribution Width 15.1 H, Neutrophils (%) (Auto) 75.9 H, Lymphocytes (%) (Auto) 11.8 L, Monocytes (%) (Auto) 9.3 H, Eosinophils (%) (Auto) 2.2, Basophils (%) (Auto) 0.4, Neutrophils # (Auto) 5.5, Lymphocytes # (Auto) 0.9 L, Monocytes # (Auto) 0.7, Eosinophils # (Auto) 0.2, Basophils # (Auto) 0.0, Calcium Level 8.0 L Labs 24H Laboratory Tests 2 06/23/18 06:30: Immature Granulocyte % (Auto) 0.4, White Blood Count 7.2, Red Blood Count 4.51, Hemoglobin 12.4L, Hematocrit 39.1L, Mean Corpuscular Volume 86.7, Mean Corpuscular Hemoglobin 27.5, Mean Corpuscular Hemoglobin Concent 31.7L, Red Cell Distribution Width 15.1H, Platelet Count 241, Neutrophils (%) (Auto) 75.9H, Lymphocytes (%) (Auto) 11.8L, Monocytes (%) (Auto) 9.3H, Eosinophils (%) (Auto) 2.2, Basophils (%) (Auto) 0.4, Neutrophils # (Auto) 5.5, Lymphocytes # (Auto) 0.9L, Monocytes # (Auto) 0.7, Eosinophils # (Auto) 0.2, Basophils # (Auto) 0.0, Nucleated Red Blood Cells % (auto) 0.0, Prothrombin Time 21.9H, Prothromb Time I nternational Ratio 1.87, Anion Gap 7L, Glomerular Filtration Rate > 60.0, Blood Urea Nitrogen 16, Creatinine 0.90, Sodium Level 140, Potassium Level 3.6, Chloride Level 104, Carbon Dioxide Level 29, Calcium Level 8.0L Microbiology Microbiology 06/20/18 Urine Culture - Final, Complete Enterococcus Faecalis Current Medications Current Medications Current Medications Acetaminophen (Tylenol Tab) 650 mg Q6HP PRN PO PAIN / FEVER; Start 06/19/18 at 16:45 Albuterol/ Ipratropium (Duoneb (Ipr 0.5mg/Alb 2.5mg)) 3 ml RBID NEB Last administered on 06/23/18at 08:10; Start 06/22/18 at 20:00 Amiodarone HCl (Pacerone, Cordarone) 200 mg DAILY PO Last administered on 06/23/18at 10:04; Start 06/20/18 at 09:00 Diltiazem HCl (Cardizem Cd) 240 mg DAILY PO Last administered on 06/23/18at 10:04; Start 06/20/18 at 09:00 Fluoxetine HCl (PROzac) 10 mg DAILY PO Last administered on 06/21/18at 07:50; Start 06/20/18 at 09:00; Stop 06/21/18 at 16:29; Status DC Fluoxetine HCl (PROzac) 20 mg DAILY PO Last administered on 06/23/18at 10:04; Start 06/22/18 at 09:00 Guaifenesin (Mucinex Tab Er) 600 mg BID PO Last administered on 06/23/18at 10:04; Start 06/22/18 at 09:00 Home Med (Med Rec Complete!) ASDIRECTED XX ; Start 06/19/18 at 20:30; Stop 06/19/18 at 20:30; Status DC Levofloxacin (Levaquin) 750 mg DAILY@06 PO Last administered on 06/23/18at 13:14; Start 06/23/18 at 06:00 Loperamide HCl (Imodium Liquid) 2 mg ASDIRECTED PRN PO DIARRHEA; Start 06/19/18 at 16:45 Metoprolol Succinate (TopROL XL) 50 mg DAILY PO Last administered on 06/23/18at 10:05; Start 06/20/18 at 09:00 Pantoprazole Sodium (Protonix) 40 mg DAILY PO Last administered on 06/23/18at 10:04; Start 06/20/18 at 09:00 Pravastatin Sodium (Pravachol) 40 mg QHS PO Last administered on 06/22/18at 21:05; Start 06/19/18 at 21:00 Zolpidem Tartrate (Ambien) 5 mg QHS PO Last administered on 06/22/18at 21:05; Start 06/20/18 at 21:00 JAC LUNA MD Jun 23, 2018 15:09
[2018-06-23] MEDS ORDERED: WARFARIN SOD 7.5 MG TAB PO ONE (17:00)
[2018-06-23 20:00] VITALS: BP 158/81
[2018-06-23] MEDS: PRAVASTATIN 20 MG TAB PO SCH (20:04)
[2018-06-23] MEDS: zolPIDEM TARTRATE 5 MG TAB PO SCH (20:04)
[2018-06-24] MEDS: LevoFLOXacin 750 MG TABLET PO SCH (05:50)
[2018-06-24 06:00] VITALS: BP 117/69
[2018-06-24 06:48] LABS: INR 2.38; PROTHROMBIN TIME 26.4 SECONDS (12.1-14.4)
[2018-06-24] MEDS: IPRATROPIUM 0.5MG/ALBUTEROL 2.5MG INH SOL UD 3ML (DUONEB)(J7620) NEB SCH ×2 (08:30→20:11)
[2018-06-24] MEDS: PANTOPRAZOLE 40MG TAB (PROTONIX) PO SCH (09:29)
[2018-06-24] MEDS: guaiFENesin ER 600 MG TAB PO SCH ×2 (09:29→21:17)
[2018-06-24] MEDS: FLUoxetine 20 MG CAP PO SCH (09:29)
[2018-06-24] MEDS: AMIODARONE 200 MG TAB (PACERONE) PO SCH (09:29)
[2018-06-24] MEDS: METOPROLOL SUCC (TopROL XL) 50MG **XL** TAB PO SCH (11:11)
[2018-06-24 14:00] VITALS: BP 132/80
[2018-06-24] MEDS ORDERED: WARFARIN SOD 5 MG TAB PO ONE (17:00)
[2018-06-24 21:00] VITALS: BP 125/78
[2018-06-24] MEDS: zolPIDEM TARTRATE 5 MG TAB PO SCH (21:17)
[2018-06-24] MEDS: PRAVASTATIN 20 MG TAB PO SCH (21:17)
[2018-06-25] MEDS: LevoFLOXacin 750 MG TABLET PO SCH (05:17)
[2018-06-25 06:00] VITALS: BP 119/66
[2018-06-25 07:00] LABS: INR 2.9
[2018-06-25] MEDS: IPRATROPIUM 0.5MG/ALBUTEROL 2.5MG INH SOL UD 3ML (DUONEB)(J7620) NEB SCH ×2 (08:41→20:57)
[2018-06-25] MEDS: PANTOPRAZOLE 40MG TAB (PROTONIX) PO SCH (09:44)
[2018-06-25] MEDS: FLUoxetine 20 MG CAP PO SCH (09:44)
[2018-06-25] MEDS: AMIODARONE 200 MG TAB (PACERONE) PO SCH (09:44)
[2018-06-25] MEDS: guaiFENesin ER 600 MG TAB PO SCH ×2 (09:44→21:33)
[2018-06-25] MEDS: METOPROLOL SUCC (TopROL XL) 50MG **XL** TAB PO SCH (11:12)
[2018-06-25 14:00] VITALS: BP 140/78
[2018-06-25] MEDS ORDERED: WARFARIN SOD 5 MG TAB PO SCH (17:00)
[2018-06-25 20:00] VITALS: BP 138/82
[2018-06-25] MEDS: zolPIDEM TARTRATE 5 MG TAB PO SCH (21:33)
[2018-06-25] MEDS: PRAVASTATIN 20 MG TAB PO SCH (21:33)
[2018-06-26] MEDS: LevoFLOXacin 750 MG TABLET PO SCH (05:43)
[2018-06-26] MEDS: ACETAMINOPHEN TAB 650MG DOSE (2X325MG) PO PRN (05:43)
[2018-06-26 06:00] VITALS: BP 125/77
[2018-06-26 06:46] LABS: INR 3.29; PROTHROMBIN TIME 34.2 SECONDS (12.1-14.4)
[2018-06-26] MEDS: IPRATROPIUM 0.5MG/ALBUTEROL 2.5MG INH SOL UD 3ML (DUONEB)(J7620) NEB SCH ×2 (08:00→20:00)
[2018-06-26] MEDS: PANTOPRAZOLE 40MG TAB (PROTONIX) PO SCH (10:52)
[2018-06-26] MEDS: guaiFENesin ER 600 MG TAB PO SCH ×2 (10:52→20:31)
[2018-06-26] MEDS: AMIODARONE 200 MG TAB (PACERONE) PO SCH (10:52)
[2018-06-26] MEDS: FLUoxetine 20 MG CAP PO SCH (10:54)
[2018-06-26] MEDS: METOPROLOL SUCC (TopROL XL) 50MG **XL** TAB PO SCH (12:08)
[2018-06-26 14:00] VITALS: BP 136/84
[2018-06-26] MEDS ORDERED: WARFARIN SOD 3 MG TAB PO ONE (17:00)
[2018-06-26 20:00] VITALS: BP 142/74
--- NOTE | 2018-06-26 20:21 | IPNPDOC ---
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 He reports feeling constipated and would like a laxative. REVIEW OF SYSTEMS: The following is a completed review of systems and has been reviewed. Review of systems otherwise unremarkable. PAIN: Patient self reports no pain EYES: Negative EARS, NOSE, & THROAT: +dysphagia CARDIOVASCULAR: +AVR and Afib, recent NSTEMI PULMONARY: Negative. Denies shortness of breath, +cough GASTROINTESTINAL: + diarrhea improving GENITOURINARY: no retention or dysuria MUSCULOSKELETAL: left LE weakness NEUROLOGICAL: left sided hemiparesis HEMATOLOGICAL: on Coumadin SKIN: intact PSYCHIATRIC: Unremarkable All other review of systems found to be negative. PHYSICAL EXAMINATION: VITAL SIGNS: Please see below. GENERAL: Pleasant and cooperative. No acute distress. HEENT: PERRL. Extraocular movements intact. Clear conjunctiva, left sided facial droop CARDIOVASCULAR: Regular rate and rhythm. No murmurs, rubs, or gallops LUNGS: Mostly clear to auscultation bilaterally. No wheezes, however , +cough, transmitted upper airway sounds ABDOMEN:Soft, nontender, nondistended. Positive bowel sounds. Normal active bowel sounds NEUROLOGICAL: Alert and oriented times three. Cranial nerves II through XII grossly intact with eyebrow sparing left facial droop, Sensation grossly intact in all 4 limbs EXTREMITIES: 5/5 strength left elbow flexors/extensors, wrist extensors, header boss and abduction 3+/5 right elbow flexion and extension, 3+ wrist extension, 3+ header boss 5-/5 left hip flexors, knee extensors, ankle DF and EHL, plantar flexion 1/5 right hip flexion, knee extensors, ankle DF and EHL, trace DF SKIN: intact no rashes ASSESSMENT:73-year-old M with past medical history of Aortic Valve replacement, Afib, multiple CVAs who presents status post NSTEMI complicated by stroke PLAN: 1. 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 Neuro: s/p recent bilateral embolic strokes in setting of newly diagnosed Afib and AVR, continue statin, Coumadin, rate and rhythm control -increased Fluoxetine from 10mg to 20mg for motor recovery and mood 3. Cardiac: pmh aVR with mechanical valve, not followed by bung driver, will refer to Dr. Alfaro- on Coumadin, diltiazem, amiodarone, and beta [facility] family medicine consulted, monitor daily INRs goal 2.5-3.5 4. GI: recent hx of diarrhea, Loperamide prn loose stool, monitor for signs of infection-stable, will start bowel meds for constipation 5. GI ppx: Protonix 6. : f/u admission UA and Ucx positive for E Faecalis, started on 10 day course of Levofloxacin 7. Resp: cough persisting, CXR 06-20-18 negative for acute pathology, breathing treatments ordered and Guaifenesin, afebrile , no leukocytosis, likely upper airway congestion, continue Guaifenesin-improved 8. Dispo: 07-12-18 to home Allergies Coded Allergies: No Known Allergies (Unverified , 07/15/16) Vital Signs Vital Signs Date Time Temp Pulse Resp B/P (MAP) Pulse Ox O2 Delivery O2 Flow Rate FiO2 06/26/18 14:00 98.1 89 20 136/84 (101) 98 Room Air Laboratory Data Labs 24H Laboratory Tests 2 06/26/18 06:06: Prothrombin Time 34.2H, Prothromb Time International Ratio 3.29 Microbiology Microbiology 06/20/18 Urine Culture - Final, Complete Enterococcus Faecalis Current Medications Current Medications Current Medications Acetaminophen (Tylenol Tab) 650 mg Q6HP PRN PO PAIN / FEVER Last administered on 06/26/18at 05:43; Start 06/19/18 at 16:45 Albuterol/ Ipratropium (Duoneb (Ipr 0.5mg/Alb 2.5mg)) 3 ml RBID NEB Last administered on 06/26/18at 08:00; Start 06/22/18 at 20:00 Amiodarone HCl (Pacerone, Cordarone) 200 mg DAILY PO Last administered on 06/26/18at 10:52; Start 06/20/18 at 09:00 Bisacodyl (Dulcolax Suppository) 10 mg DAILYPRN PRN [place] CONSTIPATION; Start 06/26/18 at 11:00 Diltiazem HCl (Cardizem Cd) 240 mg DAILY PO Last administered on 06/26/18at 10:53; Start 06/20/18 at 09:00 Fluoxetine HCl (PROzac) 10 mg DAILY PO Last administered on 06/21/18at 07:50; Start 06/20/18 at 09:00; Stop 06/21/18 at 16:29; Status DC Fluoxetine HCl (PROzac) 20 mg DAILY PO Last administered on 06/26/18at 10:54; Start 06/22/18 at 09:00 Guaifenesin (Mucinex Tab Er) 600 mg BID PO Last administered on 06/26/18at 10:52; Start 06/22/18 at 09:00 Home Med (Med Rec Complete!) ASDIRECTED XX ; Start 06/19/18 at 20:30; Stop 06/19/18 at 20:30; Status DC Levofloxacin (Levaquin) 750 mg DAILY@06 PO Last administered on 06/26/18at 05:43; Start 06/23/18 at 06:00 Loperamide HCl (Imodium Liquid) 2 mg ASDIRECTED PRN PO DIARRHEA; Start 06/19/18 at 16:45 Metoprolol Succinate (TopROL XL) 50 mg DAILY PO Last administered on 06/26/18at 12:08; Start 06/20/18 at 09:00 Pantoprazole Sodium (Protonix) 40 mg DAILY PO Last administered on 06/26/18 10:52; Start 06/20/18 at 09:00 Pravastatin Sodium (Pravachol) 40 mg QHS PO Last administered on 06/25/18at 21:33; Start 06/19/18 at 21:00 Warfarin Sodium (Coumadin) 5 mg DAILY@17 PO Last administered on 06/25/18at 17:03; Start 06/25/18 at 17:00; Stop 06/26/18 at 10:58; Status DC Zolpidem Tartrate (Ambien) 5 mg QHS PO Last administered on 06/25/18 21:33; Start 06/20/18 at 21:00 JAC LUNA MD Jun 26, 2018 20:20
[2018-06-26] MEDS ORDERED: BISACODYL 10 MG SUPP PR PRN (20:30)
[2018-06-26] MEDS: zolPIDEM TARTRATE 5 MG TAB PO SCH (20:31)
[2018-06-26] MEDS: DOCUSATE SODIUM 100 MG CAP PO SCH (20:31)
[2018-06-26] MEDS: PRAVASTATIN 20 MG TAB PO SCH (20:31)
[2018-06-27 06:00] VITALS: BP 150/82
[2018-06-27] MEDS: LevoFLOXacin 750 MG TABLET PO SCH (06:17)
[2018-06-27 06:52] LABS: INR 3.18; PROTHROMBIN TIME 33.3 SECONDS (12.1-14.4)
[2018-06-27] MEDS: BISACODYL 10 MG SUPP PR PRN (06:57)
[2018-06-27] MEDS: IPRATROPIUM 0.5MG/ALBUTEROL 2.5MG INH SOL UD 3ML (DUONEB)(J7620) NEB SCH ×2 (08:00→22:55)
[2018-06-27] MEDS: FLUoxetine 20 MG CAP PO SCH (09:04)
[2018-06-27] MEDS: DOCUSATE SODIUM 100 MG CAP PO SCH ×2 (09:04→22:22)
[2018-06-27] MEDS: AMIODARONE 200 MG TAB (PACERONE) PO SCH (09:05)
[2018-06-27] MEDS: METOPROLOL SUCC (TopROL XL) 50MG **XL** TAB PO SCH (09:05)
[2018-06-27] MEDS: PANTOPRAZOLE 40MG TAB (PROTONIX) PO SCH (09:05)
[2018-06-27] MEDS: guaiFENesin ER 600 MG TAB PO SCH ×2 (09:05→22:22)
[2018-06-27] MEDS: ACETAMINOPHEN TAB 650MG DOSE (2X325MG) PO PRN (09:06)
[2018-06-27 14:00] VITALS: BP 168/97
[2018-06-27] MEDS ORDERED: LACTULOSE 20 GM/30 ML SYRUP UD PO ONE (14:45)
[2018-06-27] MEDS ORDERED: BISACODYL 10 MG SUPP PR ONE (14:45)
[2018-06-27] MEDS ORDERED: WARFARIN SOD 3 MG TAB PO SCH (17:00)
[2018-06-27 20:00] VITALS: BP 129/78
--- NOTE | 2018-06-27 20:47 | IPNPDOC ---
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 He was counseled on medical measures to be taken to alleviate constipation and the urge to go and he was encouraged to disregard the urge to go while in therapy as this is valuable time and to try to wait until after therapy. REVIEW OF SYSTEMS: The following is a completed review of systems and has been reviewed. Review of systems otherwise unremarkable. PAIN: Patient self reports no pain EYES: Negative EARS, NOSE, & THROAT: +dysphagia CARDIOVASCULAR: +AVR and Afib, recent NSTEMI PULMONARY: Negative. Denies shortness of breath, +cough GASTROINTESTINAL: + diarrhea improving, +tenesmus GENITOURINARY: no retention or dysuria MUSCULOSKELETAL: right LE weakness NEUROLOGICAL: right sided hemiparesis HEMATOLOGICAL: on Coumadin SKIN: intact PSYCHIATRIC: Unremarkable All other review of systems found to be negative. PHYSICAL EXAMINATION: VITAL SIGNS: Please see below. GENERAL: Pleasant and cooperative. No acute distress. HEENT: PERRL. Extraocular movements intact. Clear conjunctiva, left sided facial droop CARDIOVASCULAR: Regular rate and rhythm. No murmurs, rubs, or gallops LUNGS: Mostly clear to auscultation bilaterally. No wheezes, however , +cough, transmitted upper airway sounds ABDOMEN:Soft, nontender, nondistended. Positive bowel sounds. Normal active bowel sounds NEUROLOGICAL: Alert and oriented times three. Cranial nerves II through XII grossly intact with eyebrow sparing left facial droop, Sensation grossly intact in all 4 limbs EXTREMITIES: 5/5 strength left elbow flexors/extensors, wrist extensors, fiberglass pipe covering supervisor and abduction 3+/5 right elbow flexion and extension, 3+ wrist extension, 3+ fiberglass pipe covering supervisor 5-/5 left hip flexors, knee extensors, ankle DF and EHL, plantar flexion 1/5 right hip flexion, knee extensors, ankle DF and EHL, trace DF SKIN: intact no rashes ASSESSMENT:73-year-old M with past medical history of Aortic Valve replacement, Afib, multiple CVAs who presents status post NSTEMI complicated by stroke PLAN: 1. 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 Neuro: s/p recent bilateral embolic strokes in setting of newly diagnosed Afib and AVR, continue statin, Coumadin, rate and rhythm control -increased Fluoxetine from 10mg to 20mg for motor recovery and mood 3. 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 Alfaro- on Coumadin, diltiazem, amiodarone, and beta michelle family medicine consulted, monitor daily INRs goal 2.5-3.5 -f/u with [facility] cardiolgist in early July for recent catheterization 4. GI: recent hx of diarrhea, Loperamide prn loose stool, monitor for signs of infection-stable, continue bowel meds for constipation- patient with significant tenesmus likely from recent colitis, will give lactulose-bisacodyl suppository and fleet enema tonight and start Anusol suppository tonight to be followed by BID to decrease urge 5. GI ppx: Protonix 6. : admission UA and Ucx positive for E Faecalis, started on 10 day course of Levofloxacin 7. Resp: cough persisting, CXR 06-20-18 negative for acute pathology, breathing treatments ordered and Guaifenesin, afebrile , no leukocytosis, likely upper airway congestion, continue Guaifenesin-improved 8. Dispo: 07-12-18 to home, however given current status this may not be feasible, family training to be held later this week Allergies Coded Allergies: No Known Allergies (Unverified , 07/15/16) Vital Signs Vital Signs Date Time Temp Pulse Resp B/P (MAP) Pulse Ox O2 Delivery O2 Flow Rate FiO2 06/27/18 14:00 97.9 82 20 168/97 (120) 96 Room Air Laboratory Data Labs 24H Laboratory Tests 2 06/27/18 06:25: Prothrombin Time 33.3H, Prothromb Time International Ratio 3.18 Microbiology Microbiology 06/20/18 Urine Culture - Final, Complete Enterococcus Faecalis Current Medications Current Medications Current Medications Acetaminophen (Tylenol Tab) 650 mg Q6HP PRN PO PAIN / FEVER Last administered on 06/27/18at 09:06; Start 06/19/18 at 16:45 Albuterol/ Ipratropium (Duoneb (Ipr 0.5mg/Alb 2.5mg)) 3 ml RBID NEB Last administered on 06/26/18at 08:00; Start 06/22/18 at 20:00 Amiodarone HCl (Pacerone, Cordarone) 200 mg DAILY PO Last administered on 06/27/18at 09:05; Start 06/20/18 at 09:00 Bisacodyl (Dulcolax Suppository) 10 mg DAILYPRN PRN [place] CONSTIPATION Last administered on 06/27/18at 06:57; Start 06/26/18 at 11:00 Bisacodyl (Dulcolax Suppository) 10 mg DAILYPRN PRN [place] CONSTIPATION; Start 06/26/18 at 20:30; Stop 06/26/18 at 20:30; Status DC Diltiazem HCl (Cardizem Cd) 240 mg DAILY PO Last administered on 06/27/18at 09:05; Start 06/20/18 at 09:00 Docusate Sodium (Colace) 100 mg BID PO Last administered on 06/27/18at 09:04; Start 06/26/18 at 21:00 Fluoxetine HCl (PROzac) 10 mg DAILY PO Last administered on 06/21/18at 07:50; Start 06/20/18 at 09:00; Stop 06/21/18 at 16:29; Status DC Fluoxetine HCl (PROzac) 20 mg DAILY PO Last administered on 06/27/18at 09:04; Start 06/22/18 at 09:00 Guaifenesin (Mucinex Tab Er) 600 mg BID PO Last administered on 06/27/18at 09:05; Start 06/22/18 at 09:00 Home Med (Med Rec Complete!) ASDIRECTED XX ; Start 06/19/18 at 20:30; Stop 06/19/18 at 20:30; Status DC Hydrocortisone Acetate (Anusol Hc Supp) 25 mg BID MT ; Start 06/27/18 at 21:00 Levofloxacin (Levaquin) 750 mg DAILY@06 PO Last administered on 06/27/18at 06:17; Start 06/23/18 at 06:00 Loperamide HCl (Imodium Liquid) 2 mg ASDIRECTED PRN PO DIARRHEA; Start 06/19/18 at 16:45 Metoprolol Succinate (TopROL XL) 50 mg DAILY PO Last administered on 06/27/18 09:05; Start 06/20/18 at 09:00; Stop 06/27/18 at 14:42; Status DC Metoprolol Succinate (TopROL XL) 75 mg DAILY PO ; Start 06/28/18 at 09:00 Pantoprazole Sodium (Protonix) 40 mg DAILY PO Last administered on 06/27/18at 09:05; Start 06/20/18 at 09:00 Pravastatin Sodium (Pravachol) 40 mg QHS PO Last administered on 06/26/18at 20:31; Start 06/19/18 at 21:00 Senna (Senokot) 1 tab QHSP PRN PO CONSTIPATION; Start 06/26/18 at 20:30 Sodium Biphosphate/ Sodium Phosphate (Fleet Enema) 1 ea DAILYPRN PRN [place] CONSTIPATION; Start 06/27/18 at 14:45 Warfarin Sodium (Coumadin) 3 mg DAILY@17 PO Last administered on 06/27/18at 16:19; Start 06/27/18 at 17:00 Warfarin Sodium (Coumadin) 5 mg DAILY@17 PO Last administered on 06/25/18at 17:03; Start 06/25/18 at 17:00; Stop 06/26/18 at 10:58; Status DC Zolpidem Tartrate (Ambien) 5 mg QHS PO Last administered on 06/26/18at 20:31; Start 06/20/18 at 21:00 JAC LUNA MD Jun 27, 2018 20:47
[2018-06-27] MEDS: zolPIDEM TARTRATE 5 MG TAB PO SCH (22:22)
[2018-06-27] MEDS: PRAVASTATIN 20 MG TAB PO SCH (22:23)
[2018-06-27] MEDS: ANUSOL HC 25MG SUPP PR SCH (23:10)
[2018-06-28 06:00] VITALS: BP 130/61
[2018-06-28] MEDS: LevoFLOXacin 750 MG TABLET PO SCH (06:07)
[2018-06-28 07:04] LABS: INR 3.82; PROTHROMBIN TIME 38.5 SECONDS (12.1-14.4)
[2018-06-28] MEDS: guaiFENesin ER 600 MG TAB PO SCH ×2 (08:12→20:36)
[2018-06-28] MEDS: DOCUSATE SODIUM 100 MG CAP PO SCH ×2 (08:12→20:37)
[2018-06-28] MEDS: FLUoxetine 20 MG CAP PO SCH (08:13)
[2018-06-28] MEDS: PANTOPRAZOLE 40MG TAB (PROTONIX) PO SCH (08:13)
[2018-06-28] MEDS: AMIODARONE 200 MG TAB (PACERONE) PO SCH (08:13)
[2018-06-28] MEDS: ANUSOL HC 25MG SUPP PR SCH ×2 (11:08→20:37)
[2018-06-28] MEDS: METOPROLOL SUCC *XL* 25MG TAB (TopROL *XL*) PO SCH (11:08)
[2018-06-28] MEDS: IPRATROPIUM 0.5MG/ALBUTEROL 2.5MG INH SOL UD 3ML (DUONEB)(J7620) NEB SCH ×2 (13:30→21:25)
[2018-06-28 14:00] VITALS: BP 127/78
[2018-06-28 20:00] VITALS: BP 128/65
[2018-06-28] MEDS: PRAVASTATIN 20 MG TAB PO SCH (20:36)
[2018-06-28] MEDS: zolPIDEM TARTRATE 5 MG TAB PO SCH (20:36)
--- NOTE | 2018-06-28 21:31 | IPNPDOC ---
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 REVIEW OF SYSTEMS: The following is a completed review of systems and has been reviewed. Review of systems otherwise unremarkable. PAIN: Patient self reports no pain EYES: Negative EARS, NOSE, & THROAT: dysphagia resolved CARDIOVASCULAR: +AVR and Afib, recent NSTEMI PULMONARY: Negative. Denies shortness of breath no cough GASTROINTESTINAL: + diarrhea and constipation improving, +tenesmus-improving GENITOURINARY: no retention or dysuria MUSCULOSKELETAL: right LE weakness NEUROLOGICAL: right sided hemiparesis HEMATOLOGICAL: on Coumadin SKIN: intact PSYCHIATRIC: Unremarkable All other review of systems found to be negative. PHYSICAL EXAMINATION: VITAL SIGNS: Please see below. GENERAL: Pleasant and cooperative. No acute distress. HEENT: PERRL. Extraocular movements intact. Clear conjunctiva, left sided facial droop CARDIOVASCULAR: Regular rate and rhythm. No murmurs, rubs, or gallops LUNGS: Mostly clear to auscultation bilaterally. No wheezes, however , +cough, transmitted upper airway sounds ABDOMEN:Soft, nontender, nondistended. Positive bowel sounds. Normal active bowel sounds NEUROLOGICAL: Alert and oriented times three. Cranial nerves II through XII grossly intact with eyebrow sparing left facial droop, Sensation grossly intact in all 4 limbs EXTREMITIES: 5/5 strength left elbow flexors/extensors, wrist extensors, photo stylist and abduction 4/5 right elbow flexion and extension, 3+ wrist extension, 3+ photo stylist 5-/5 left hip flexors, knee extensors, ankle DF and EHL, plantar flexion 1/5 right hip flexion, knee extensors, ankle DF and EHL, trace DF SKIN: intact no rashes ASSESSMENT:73-year-old M with past medical history of Aortic Valve replacement, Afib, multiple CVAs who presents status post NSTEMI complicated by stroke PLAN: 1. 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, ELECTRONIC TECH assess for DME, MBS upgrade to regular diet and thins, improving seated trunk control and RUE strength, improving [id number], PT instructed to work on stretching right hamstrings to break tone prior to ambulation/standing exercises to avoid flexion tone 2. Neuro: s/p recent bilateral embolic strokes in setting of newly diagnosed Afib and AVR, continue statin, Coumadin, rate and rhythm control -increased Fluoxetine from 10mg to 20mg for motor recovery and mood 3. Cardiac: pmh aVR with mechanical valve, not followed by business consult, will refer to Dr. Alfaro- on Coumadin, diltiazem, amiodarone, and beta michelle family medicine consulted, monitor daily INRs goal 2.5-3.5- coumadin held tonight for INR 3.8 -f/u with [facility] cardiolgist in early July for recent catheterization 4. GI: recent hx of diarrhea, Loperamide prn loose stool, monitor for signs of infection-stable, continue bowel meds for constipation- patient with significant tenesmus likely from recent colitis, s/p lactulose-bisacodyl suppository and fleet enema 06-27-18 -continue Anusol suppository BID for tenesmus 5. GI ppx: Protonix 6. : admission UA and Ucx positive for E Faecalis, started on 10 day course of Levofloxacin 7. Resp: cough persisting, CXR 06-20-18 negative for acute pathology, breathing treatments ordered and Guaifenesin, afebrile , no leukocytosis, likely upper airway congestion, continue Guaifenesin-resolved 8. Dispo: 07-12-18 to home, however given current status this may not be feasible, family training to be held later this week Allergies Coded Allergies: No Known Allergies (Unverified , 07/15/16) Vital Signs Vital Signs Date Time Temp Pulse Resp B/P (MAP) Pulse Ox O2 Delivery O2 Flow Rate FiO2 06/28/18 14:00 97.1 81 20 127/78 (94) 97 Room Air Laboratory Data Labs 24H Laboratory Tests 2 06/28/18 06:33: Prothrombin Time 38.5H, Prothromb Time International Ratio 3.82 Microbiology Microbiology 06/20/18 Urine Culture - Final, Complete Enterococcus Faecalis Current Medications Current Medications Current Medications Acetaminophen (Tylenol Tab) 650 mg Q6HP PRN PO PAIN / FEVER Last administered on 06/27/18at 09:06; Start 06/19/18 at 16:45 Albuterol/ Ipratropium (Duoneb (Ipr 0.5mg/Alb 2.5mg)) 3 ml RBID NEB Last administered on 06/28/18 21:25; Start 06/22/18 at 20:00 Amiodarone HCl (Pacerone, Cordarone) 200 mg DAILY PO Last administered on 06/28/18 08:13; Start 06/20/18 at 09:00 Bisacodyl (Dulcolax Suppository) 10 mg DAILYPRN PRN [place] CONSTIPATION Last administered on 06/27/18at 06:57; Start 06/26/18 at 11:00 Bisacodyl (Dulcolax Suppository) 10 mg DAILYPRN PRN MA CONSTIPATION; Start 06/26/18 at 20:30; Stop 06/26/18 at 20:30; Status DC Diltiazem HCl (Cardizem Cd) 240 mg DAILY PO Last administered on 06/28/18 08:13; Start 06/20/18 at 09:00 Docusate Sodium (Colace) 100 mg BID PO Last administered on 06/28/18 08:12; Start 06/26/18 at 21:00 Fluoxetine HCl (PROzac) 10 mg DAILY PO Last administered on 06/21/18at 07:50; Start 06/20/18 at 09:00; Stop 06/21/18 at 16:29; Status DC Fluoxetine HCl (PROzac) 20 mg DAILY PO Last administered on 06/28/18 08:13; Start 06/22/18 at 09:00 Guaifenesin (Mucinex Tab Er) 600 mg BID PO Last administered on 06/28/18at 20:36; Start 06/22/18 at 09:00 Home Med (Med Rec Complete!) ASDIRECTED XX ; Start 06/19/18 at 20:30; Stop 06/19/18 at 20:30; Status DC Hydrocortisone Acetate (Anusol Hc Supp) 25 mg BID MA Last administered on 06/27/18at 23:10; Start 06/27/18 at 21:00 Levofloxacin (Levaquin) 750 mg DAILY@06 PO Last administered on 06/28/18at 06:07; Start 06/23/18 at 06:00 Loperamide HCl (Imodium Liquid) 2 mg ASDIRECTED PRN PO DIARRHEA; Start 06/19/18 at 16:45 Metoprolol Succinate (TopROL XL) 50 mg DAILY PO Last administered on 06/27/18at 09:05; Start 06/20/18 at 09:00; Stop 06/27/18 at 14:42; Status DC Metoprolol Succinate (TopROL XL) 75 mg DAILY PO Last administered on 06/28/18at 11:08; Start 06/28/18 at 09:00 Pantoprazole Sodium (Protonix) 40 mg DAILY PO Last administered on 06/28/18 08:13; Start 06/20/18 at 09:00 Pravastatin Sodium (Pravachol) 40 mg QHS PO Last administered on 06/28/18at 20:36; Start 06/19/18 at 21:00 Senna (Senokot) 1 tab QHSP PRN PO CONSTIPATION; Start 06/26/18 at 20:30 Sodium Biphosphate/ Sodium Phosphate (Fleet Enema) 1 ea DAILYPRN PRN [place] CONSTIPATION; Start 06/27/18 at 14:45 Warfarin Sodium (Coumadin) 3 mg DAILY@17 PO Last administered on 06/27/18 16:19; Start 06/27/18 at 17:00; Stop 06/28/18 at 10:50; Status DC Warfarin Sodium (Coumadin) 5 mg DAILY@17 PO Last administered on 06/25/18 17:03; Start 06/25/18 at 17:00; Stop 06/26/18 at 10:58; Status DC Zolpidem Tartrate (Ambien) 5 mg QHS PO Last administered on 06/28/18 20:36; Start 06/20/18 at 21:00 JAC LUNA MD Jun 28, 2018 21:31
[2018-06-29] MEDS: LevoFLOXacin 750 MG TABLET PO SCH (05:21)
[2018-06-29 06:00] VITALS: BP 122/75
[2018-06-29 06:51] LABS: BASO % 0.4 % (0.0-1.0); EOS # 0.2 10^3/uL (0.0-0.50); HEMATOCRIT 38.7 % (42.0-52.0); HEMOGLOBIN 12.4 g/dl (13.5-17.5); LYMPH # 0.7 10^3/uL (1.5-4.5); LYMPH % 10.1 % (24.0-44.0); MEAN CORPUSCULAR HEMOGLOBIN 27.7 pg (27.0-33.0); MEAN CORPUSCULAR VOLUME 86.6 fl (80.0-96.0); MONO # 0.8 10^3/uL (0.0-0.8); MONO % 11.5 % (0.0-5.0); NEUTROPHILS # 5.6 10^3/uL (1.8-7.7); NEUTROPHILS % 75.7 % (36.0-66.0); PLATELET COUNT, AUTOMATED 191 10^3/uL (150-450); RED BLOOD COUNT 4.47 10^6/uL (4.30-6.10); WHITE BLOOD COUNT 7.3 10^3/uL (4.0-10.0)
[2018-06-29 07:01] LABS: INR 3.13; PROTHROMBIN TIME 32.9 SECONDS (12.1-14.4)
[2018-06-29 07:20] LABS: BLOOD UREA NITROGEN 13 MG/DL (7-18); CALCIUM LEVEL 8.4 MG/DL (8.8-10.2); CARBON DIOXIDE LEVEL 30 MEQ/L (21-32); CHLORIDE LEVEL 102 MEQ/L (98-107); CREATININE FOR GFR 0.91 MG/DL (0.70-1.30); GLOMERULAR FILTRATION RATE > 60.0 (>42); GLUCOSE, FASTING 99 MG/DL (70-100); POTASSIUM SERUM 3.6 MEQ/L (3.5-5.1); SODIUM LEVEL 139 MEQ/L (136-145)
[2018-06-29] MEDS: ACETAMINOPHEN TAB 650MG DOSE (2X325MG) PO PRN ×2 (07:40→20:54)
[2018-06-29] MEDS: IPRATROPIUM 0.5MG/ALBUTEROL 2.5MG INH SOL UD 3ML (DUONEB)(J7620) NEB SCH ×2 (07:58→20:37)
[2018-06-29] MEDS: guaiFENesin ER 600 MG TAB PO SCH ×2 (09:14→20:53)
[2018-06-29] MEDS: AMIODARONE 200 MG TAB (PACERONE) PO SCH (09:15)
[2018-06-29] MEDS: FLUoxetine 20 MG CAP PO SCH (09:15)
[2018-06-29] MEDS: PANTOPRAZOLE 40MG TAB (PROTONIX) PO SCH (09:15)
[2018-06-29] MEDS: DOCUSATE SODIUM 100 MG CAP PO SCH ×2 (09:15→20:53)
[2018-06-29] MEDS: METOPROLOL SUCC *XL* 25MG TAB (TopROL *XL*) PO SCH (10:49)
--- NOTE | 2018-06-29 13:04 | IPNPDOC ---
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 He is able to ambulate in therapy. REVIEW OF SYSTEMS: The following is a completed review of systems and has been reviewed. Review of systems otherwise unremarkable. PAIN: Patient self reports no pain EYES: Negative EARS, NOSE, & THROAT: dysphagia resolved CARDIOVASCULAR: +AVR and Afib, recent NSTEMI PULMONARY: Negative. Denies shortness of breath no cough GASTROINTESTINAL: + diarrhea and constipation improving, +tenesmus-improving GENITOURINARY: no retention or dysuria MUSCULOSKELETAL: right LE weakness NEUROLOGICAL: right sided hemiparesis HEMATOLOGICAL: on Coumadin SKIN: intact PSYCHIATRIC: Unremarkable All other review of systems found to be negative. PHYSICAL EXAMINATION: VITAL SIGNS: Please see below. GENERAL: Pleasant and cooperative. No acute distress. HEENT: PERRL. Extraocular movements intact. Clear conjunctiva, left sided facial droop CARDIOVASCULAR: Regular rate and rhythm. No murmurs, rubs, or gallops LUNGS: Mostly clear to auscultation bilaterally. No wheezes, however , +cough, transmitted upper airway sounds ABDOMEN:Soft, nontender, nondistended. Positive bowel sounds. Normal active bowel sounds NEUROLOGICAL: Alert and oriented times three. Cranial nerves II through XII grossly intact with eyebrow sparing left facial droop, Sensation grossly intact in all 4 limbs EXTREMITIES: 5/5 strength left elbow flexors/extensors, wrist extensors, field party manager and abduction 4/5 right elbow flexion and extension, 3+ wrist extension, 3+ field party manager 5-/5 left hip flexors, knee extensors, ankle DF and EHL, plantar flexion 1/5 right hip flexion, 2/5knee extensors, ankle DF and EHL, trace DF TOne 1/4 right hip flexor and adductor tone SKIN: intact no rashes ASSESSMENT:73-year-old M with past medical history of Aortic Valve replacement, Afib, multiple CVAs who presents status post NSTEMI complicated by stroke PLAN: 1. 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 Neuro: s/p recent bilateral embolic strokes in setting of newly diagnosed Afib and AVR, continue statin, Coumadin, rate and rhythm control -increased Fluoxetine from 10mg to 20mg for motor recovery and mood 3. Cardiac: pmh aVR with mechanical valve, not followed by professional engineer, will refer to Dr. Alfaro- on Coumadin, diltiazem, amiodarone, and beta michelle family medicine consulted, monitor daily INRs goal 2.5-3.5 -f/u with [facility] cardiolgist in early July for recent catheterization 4. GI: recent hx of diarrhea, Loperamide prn loose stool, monitor for signs of infection-stable, continue bowel meds for constipation- patient with significant tenesmus likely from recent colitis, s/p lactulose-bisacodyl suppository and fleet enema 06-27-18 -continue Anusol suppository BID for tenesmus-imrpoving 5. GI ppx: Protonix 6. : admission UA and Ucx positive for E Faecalis, s/p 10 day course of Levofloxacin 7. Resp: cough persisting, CXR 06-20-18 negative for acute pathology, breathing treatments ordered and Guaifenesin, afebrile , no leukocytosis, likely upper airway congestion, continue Guaifenesin-resolved 8. Dispo: 07-12-18 to home, however given current status this may not be feasible, family training to be held later this week and will discuss [facility] option Allergies Coded Allergies: No Known Allergies (Unverified , 07/15/16) Vital Signs Vital Signs Date Time Temp Pulse Resp B/P (MAP) Pulse Ox O2 Delivery O2 Flow Rate FiO2 06/29/18 10:49 109/61 06/29/18 09:15 84 06/29/18 06:00 98.5 18 98 Room Air Laboratory Data CBC/BMP Laboratory Tests 06/29/18 06:30 Red Blood Count 4.47, Mean Corpuscular Volume 86.6, Mean Corpuscular Hemoglobin 27.7, Mean Corpuscular Hemoglobin Concent 32.0, Red Cell Distribution Width 15.3 H, Neutrophils (%) (Auto) 75.7 H, Lymphocytes (%) (Auto) 10.1 L, Monocytes (%) (Auto) 11.5 H, Eosinophils (%) (Auto) 2.0, Basophils (%) (Auto) 0.4, Neutrophils # (Auto) 5.6, Lymphocytes # (Auto) 0.7 L, Monocytes # (Auto) 0.8, Eosinophils # (Auto) 0.2, Basophils # (Auto) 0.0, Calcium Level 8.4 L Labs 24H Laboratory Tests 2 06/29/18 06:30: Immature Granulocyte % (Auto) 0.3, White Blood Count 7.3, Red Blood Count 4.47, Hemoglobin 12.4L, Hematocrit 38.7L, Mean Corpuscular Volume 86.6, Mean Corpuscular Hemoglobin 27.7, Mean Corpuscular Hemoglobin Concent 32.0, Red Cell Distribution Width 15.3H, Platelet Count 191, Neutrophils (%) (Auto) 75.7H, Lymphocytes (%) (Auto) 10.1L, Monocytes (%) (Auto) 11.5H, Eosinophils (%) (Auto) 2.0, Basophils (%) (Auto) 0.4, Neutrophils # (Auto) 5.6, Lymphocytes # (Auto) 0.7L, Monocytes # (Auto) 0.8, Eosinophils # (Auto) 0.2, Basophils # (Auto) 0.0, Nucleated Red Blood Cells % (auto) 0.0, Prothrombin Time 32.9H, Prothromb Time International Ratio 3.13, Anion Gap 7L, Glomerular Filtration Rate > 60.0, Blood Urea Nitrogen 13, Creatinine 0.91, Sodium Level 139, Potassium Level 3.6, Chloride Level 102, Carbon Dioxide Level 30, Calcium Level 8.4L Microbiology Microbiology 06/20/18 Urine Culture - Final, Complete Enterococcus Faecalis Current Medications Current Medications Current Medications Acetaminophen (Tylenol Tab) 650 mg Q6HP PRN PO PAIN / FEVER Last administered on 06/29/18at 07:40; Start 06/19/18 at 16:45 Albuterol/ Ipratropium (Duoneb (Ipr 0.5mg/Alb 2.5mg)) 3 ml RBID NEB Last administered on 06/28/18at 21:25; Start 06/22/18 at 20:00 Amiodarone HCl (Pacerone, Cordarone) 200 mg DAILY PO Last administered on 06/29/18at 09:15; Start 06/20/18 at 09:00 Bisacodyl (Dulcolax Suppository) 10 mg DAILYPRN PRN [place] CONSTIPATION Last administered on 06/27/18at 06:57; Start 06/26/18 at 11:00 Bisacodyl (Dulcolax Suppository) 10 mg DAILYPRN PRN PA CONSTIPATION; Start 06/26/18 at 20:30; Stop 06/26/18 at 20:30; Status DC Diltiazem HCl (Cardizem Cd) 240 mg DAILY PO Last administered on 06/29/18at 09:15; Start 06/20/18 at 09:00 Docusate Sodium (Colace) 100 mg BID PO Last administered on 06/29/18at 09:15; Start 06/26/18 at 21:00 Fluoxetine HCl (PROzac) 10 mg DAILY PO Last administered on 06/21/18at 07:50; Start 06/20/18 at 09:00; Stop 06/21/18 at 16:29; Status DC Fluoxetine HCl (PROzac) 20 mg DAILY PO Last administered on 06/29/18at 09:15; Start 06/22/18 at 09:00 Guaifenesin (Mucinex Tab Er) 600 mg BID PO Last administered on 06/29/18at 09:14; Start 06/22/18 at 09:00 Home Med (Med Rec Complete!) ASDIRECTED XX ; Start 06/19/18 at 20:30; Stop 06/19/18 at 20:30; Status DC Hydrocortisone Acetate (Anusol Hc Supp) 25 mg BID PA Last administered on 06/27/18at 23:10; Start 06/27/18 at 21:00 Levofloxacin (Levaquin) 750 mg DAILY@06 PO Last administered on 06/29/18at 05:21; Start 06/23/18 at 06:00; Stop 07/02/18 at 06:01 Loperamide HCl (Imodium Liquid) 2 mg ASDIRECTED PRN PO DIARRHEA; Start 06/19/18 at 16:45 Metoprolol Succinate (TopROL XL) 50 mg DAILY PO Last administered on 06/27/18at 09:05; Start 06/20/18 at 09:00; Stop 06/27/18 at 14:42; Status DC Metoprolol Succinate (TopROL XL) 75 mg DAILY PO Last administered on 06/28/18at 11:08; Start 06/28/18 at 09:00 Miscellaneous (Unresolved Clarification Entry) SEE LABEL COMMENTS DAILY XX ; Start 06/29/18 at 09:00; Stop 06/29/18 at 09:00; Status DC Pantoprazole Sodium (Protonix) 40 mg DAILY PO Last administered on 06/29/18at 09:15; Start 06/20/18 at 09:00 Pravastatin Sodium (Pravachol) 40 mg QHS PO Last administered on 06/28/18at 20:36; Start 06/19/18 at 21:00 Senna (Senokot) 1 tab QHSP PRN PO CONSTIPATION; Start 06/26/18 at 20:30 Sodium Biphosphate/ Sodium Phosphate (Fleet Enema) 1 ea DAILYPRN PRN [place] CONSTIPATION; Start 06/27/18 at 14:45 Warfarin Sodium (Coumadin) 3 mg DAILY@17 PO Last administered on 06/27/18at 16:19; Start 06/27/18 at 17:00; Stop 06/28/18 at 10:50; Status DC Warfarin Sodium (Coumadin) 3 mg DAILY@17 PO ; Start 06/29/18 at 17:00 Warfarin Sodium (Coumadin) 5 mg DAILY@17 PO Last administered on 06/25/18at 17:03; Start 06/25/18 at 17:00; Stop 06/26/18 at 10:58; Status DC Zolpidem Tartrate (Ambien) 5 mg QHS PO Last administered on 06/28/18at 20:36; Start 06/20/18 at 21:00 JAC LUNA MD Jun 29, 2018 13:04
[2018-06-29] MEDS: ANUSOL HC 25MG SUPP PR SCH ×2 (13:53→20:53)
[2018-06-29 14:00] VITALS: BP 118/57
[2018-06-29] MEDS: WARFARIN SOD 3 MG TAB PO SCH (17:23)
[2018-06-29 20:00] VITALS: BP 132/75
[2018-06-29] MEDS: PRAVASTATIN 20 MG TAB PO SCH (20:53)
[2018-06-29] MEDS: zolPIDEM TARTRATE 5 MG TAB PO SCH (20:53)
[2018-06-30 05:07] VITALS: BP 142/94
[2018-06-30] MEDS: LevoFLOXacin 750 MG TABLET PO SCH (05:48)
[2018-06-30 07:08] LABS: PROTHROMBIN TIME 31.8 SECONDS (12.1-14.4)
[2018-06-30] MEDS: IPRATROPIUM 0.5MG/ALBUTEROL 2.5MG INH SOL UD 3ML (DUONEB)(J7620) NEB SCH ×2 (07:50→20:10)
[2018-06-30] MEDS: FLUoxetine 20 MG CAP PO SCH (09:28)
[2018-06-30] MEDS: METOPROLOL SUCC *XL* 25MG TAB (TopROL *XL*) PO SCH (09:28)
[2018-06-30] MEDS: PANTOPRAZOLE 40MG TAB (PROTONIX) PO SCH (09:29)
[2018-06-30] MEDS: DOCUSATE SODIUM 100 MG CAP PO SCH ×2 (09:29→20:38)
[2018-06-30] MEDS: AMIODARONE 200 MG TAB (PACERONE) PO SCH (09:29)
[2018-06-30] MEDS: guaiFENesin ER 600 MG TAB PO SCH ×2 (09:29→20:38)
[2018-06-30] MEDS: ANUSOL HC 25MG SUPP PR SCH ×2 (09:30→20:38)
[2018-06-30] MEDS: ACETAMINOPHEN TAB 650MG DOSE (2X325MG) PO PRN (09:30)
[2018-06-30 14:00] VITALS: BP 148/78
[2018-06-30] MEDS: WARFARIN SOD 3 MG TAB PO SCH (17:41)
[2018-06-30 20:00] VITALS: BP 138/70
[2018-06-30] MEDS: zolPIDEM TARTRATE 5 MG TAB PO SCH (20:38)
[2018-06-30] MEDS: SENNA 8.6 MG TAB (SENOKOT) PO PRN (20:38)
[2018-06-30] MEDS: PRAVASTATIN 20 MG TAB PO SCH (20:38)
[2018-07-01 06:00] VITALS: BP 120/71
[2018-07-01] MEDS: LevoFLOXacin 750 MG TABLET PO SCH (06:11)
[2018-07-01 06:59] LABS: INR 2.64; PROTHROMBIN TIME 28.7 SECONDS (12.1-14.4)
[2018-07-01] MEDS: IPRATROPIUM 0.5MG/ALBUTEROL 2.5MG INH SOL UD 3ML (DUONEB)(J7620) NEB SCH ×2 (08:34→20:07)
[2018-07-01] MEDS: FLUoxetine 20 MG CAP PO SCH (08:37)
[2018-07-01] MEDS: guaiFENesin ER 600 MG TAB PO SCH ×2 (08:37→20:56)
[2018-07-01] MEDS: AMIODARONE 200 MG TAB (PACERONE) PO SCH (08:39)
[2018-07-01] MEDS: PANTOPRAZOLE 40MG TAB (PROTONIX) PO SCH (08:39)
[2018-07-01] MEDS: DOCUSATE SODIUM 100 MG CAP PO SCH ×2 (08:40→20:57)
[2018-07-01 09:00] VITALS: BP 115/64
[2018-07-01] MEDS: ANUSOL HC 25MG SUPP PR SCH ×2 (09:00→20:57)
[2018-07-01] MEDS: METOPROLOL SUCC *XL* 25MG TAB (TopROL *XL*) PO SCH (10:56)
[2018-07-01 14:00] VITALS: BP 117/62
[2018-07-01] MEDS: BISACODYL 10 MG SUPP PR PRN (15:11)
[2018-07-01] MEDS: WARFARIN SOD 3 MG TAB PO SCH (17:06)
[2018-07-01 20:00] VITALS: BP 131/81
[2018-07-01] MEDS: PRAVASTATIN 20 MG TAB PO SCH (20:56)
[2018-07-01] MEDS: zolPIDEM TARTRATE 5 MG TAB PO SCH (20:57)
[2018-07-02 06:00] VITALS: BP 137/79
[2018-07-02] MEDS: LevoFLOXacin 750 MG TABLET PO SCH (06:26)
[2018-07-02 07:15] LABS: INR 2.65; PROTHROMBIN TIME 28.8 SECONDS (12.1-14.4)
[2018-07-02] MEDS: IPRATROPIUM 0.5MG/ALBUTEROL 2.5MG INH SOL UD 3ML (DUONEB)(J7620) NEB SCH ×2 (08:00→19:51)
[2018-07-02] MEDS: FLUoxetine 20 MG CAP PO SCH (08:16)
[2018-07-02] MEDS: PANTOPRAZOLE 40MG TAB (PROTONIX) PO SCH (08:16)
[2018-07-02] MEDS: guaiFENesin ER 600 MG TAB PO SCH ×2 (08:16→21:25)
[2018-07-02] MEDS: DOCUSATE SODIUM 100 MG CAP PO SCH ×2 (08:17→21:00)
[2018-07-02] MEDS: AMIODARONE 200 MG TAB (PACERONE) PO SCH (08:17)
[2018-07-02 09:00] VITALS: BP 138/88
[2018-07-02] MEDS: ANUSOL HC 25MG SUPP PR SCH ×2 (09:00→21:00)
[2018-07-02] MEDS: METOPROLOL SUCC *XL* 25MG TAB (TopROL *XL*) PO SCH (10:22)
[2018-07-02 14:00] VITALS: BP 126/81
[2018-07-02] MEDS: WARFARIN SOD 3 MG TAB PO SCH (16:58)
[2018-07-02 20:00] VITALS: BP 157/84
[2018-07-02] MEDS: PRAVASTATIN 20 MG TAB PO SCH (21:25)
[2018-07-02] MEDS: zolPIDEM TARTRATE 5 MG TAB PO SCH (21:25)
[2018-07-03 06:00] VITALS: BP 131/87
[2018-07-03 07:22] LABS: INR 2.52; PROTHROMBIN TIME 27.7 SECONDS (12.1-14.4)
[2018-07-03] MEDS: IPRATROPIUM 0.5MG/ALBUTEROL 2.5MG INH SOL UD 3ML (DUONEB)(J7620) NEB SCH ×2 (08:00→20:09)
[2018-07-03] MEDS: guaiFENesin ER 600 MG TAB PO SCH ×2 (08:30→20:33)
[2018-07-03] MEDS: PANTOPRAZOLE 40MG TAB (PROTONIX) PO SCH (08:30)
[2018-07-03] MEDS: DOCUSATE SODIUM 100 MG CAP PO SCH ×2 (08:30→20:35)
[2018-07-03] MEDS: AMIODARONE 200 MG TAB (PACERONE) PO SCH (08:31)
[2018-07-03] MEDS: ANUSOL HC 25MG SUPP PR SCH ×2 (08:31→20:41)
[2018-07-03] MEDS: FLUoxetine 20 MG CAP PO SCH (08:31)
[2018-07-03] MEDS: METOPROLOL SUCC *XL* 25MG TAB (TopROL *XL*) PO SCH (10:32)
[2018-07-03 14:00] VITALS: BP 132/77
[2018-07-03] MEDS ORDERED: WARFARIN SOD 3 MG TAB PO SCH (17:00)
[2018-07-03] MEDS: WARFARIN SOD 2.5 MG TAB PO SCH (17:50)
[2018-07-03] MEDS: WARFARIN SOD 1 MG TAB PO SCH (17:51)
[2018-07-03 20:05] VITALS: BP 139/71
--- NOTE | 2018-07-03 20:22 | IPNPDOC ---
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 He reports bilateral calf rash without itching or swelling. REVIEW OF SYSTEMS: The following is a completed review of systems and has been reviewed. Review of systems otherwise unremarkable. PAIN: Patient self reports no pain EYES: Negative EARS, NOSE, & THROAT: dysphagia resolved CARDIOVASCULAR: +AVR and Afib, recent NSTEMI PULMONARY: Negative. Denies shortness of breath no cough GASTROINTESTINAL: + diarrhea and constipation improving, +tenesmus-improving GENITOURINARY: no retention or dysuria MUSCULOSKELETAL: right LE weakness NEUROLOGICAL: right sided hemiparesis HEMATOLOGICAL: on Coumadin SKIN: intact, petechial rash PSYCHIATRIC: Unremarkable All other review of systems found to be negative. PHYSICAL EXAMINATION: VITAL SIGNS: Please see below. GENERAL: Pleasant and cooperative. No acute distress. HEENT: PERRL. Extraocular movements intact. Clear conjunctiva, left sided facial droop CARDIOVASCULAR: Regular rate and rhythm. No murmurs, rubs, or gallops LUNGS: Mostly clear to auscultation bilaterally. No wheezes, however , +cough, transmitted upper airway sounds ABDOMEN:Soft, nontender, nondistended. Positive bowel sounds. Normal active bowel sounds NEUROLOGICAL: Alert and oriented times three. Cranial nerves II through XII grossly intact with eyebrow sparing left facial droop, Sensation grossly intact in all 4 limbs EXTREMITIES: 5/5 strength left elbow flexors/extensors, wrist extensors, environmental remediation engineer and abduction 4/5 right elbow flexion and extension, 3+ wrist extension, 3+ environmental remediation engineer 5-/5 left hip flexors, knee extensors, ankle DF and EHL, plantar flexion 1/5 right hip flexion, 2/5knee extensors, ankle DF and EHL, trace DF TOne 1/4 right hip flexor and adductor tone SKIN: bilateral anterior calf petechial rash without swelling or induration ASSESSMENT:73-year-old M with past medical history of Aortic Valve replacement, Afib, multiple CVAs who presents status post NSTEMI complicated by stroke PLAN: 1. 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 Neuro: s/p recent bilateral embolic strokes in setting of newly diagnosed Afib and AVR, continue statin, Coumadin, rate and rhythm control -increased Fluoxetine from 10mg to 20mg for motor recovery and mood 3. Cardiac: pmh aVR with mechanical valve, not followed by director process, will refer to Dr. Alfaro- on Coumadin, diltiazem, amiodarone, and beta michelle family medicine consulted, monitor daily INRs goal 2.5-3.5 -f/u with [facility] cardiolgist in early July for recent catheterization 4. GI: recent hx of diarrhea, Loperamide prn loose stool, monitor for signs of infection-stable, continue bowel meds for constipation- patient with significant tenesmus likely from recent colitis, s/p lactulose-bisacodyl suppository and fleet enema 06-27-18- improving -continue Anusol suppository BID for tenesmus-improving 5. GI ppx: Protonix 6. : admission UA and Ucx positive for E Faecalis, s/p 10 day course of Levofloxacin 7. Resp: cough persisting, CXR 06-20-18 negative for acute pathology, breathing treatments ordered and Guaifenesin, afebrile , no leukocytosis, likely upper airway congestion, continue Guaifenesin-resolved 8. Heme: petechial rash with drop in platelets, likely drug induced from recent Levofloxacin which can cause drug-induced thrombocytopenia, will monitor and replete as needed, monitor for signs of bleeding 8. Dispo: will extend stay beyond 07-12-18 as has medical needs, is making strides in therapy, and would like to return home Allergies Coded Allergies: No Known Allergies (Unverified , 07/15/16) Vital Signs Vital Signs Date Time Temp Pulse Resp B/P (MAP) Pulse Ox O2 Delivery O2 Flow Rate FiO2 07/03/18 20:05 97.8 71 18 139/71 (93) 94 Room Air Laboratory Data Labs 24H Laboratory Tests 2 07/03/18 06:51: Prothrombin Time 27.7H, Prothromb Time International Ratio 2.52 Current Medications Current Medications Current Medications Acetaminophen (Tylenol Tab) 650 mg Q6HP PRN PO PAIN / FEVER Last administered on 06/30/18 09:30; Start 06/19/18 at 16:45 Albuterol/ Ipratropium (Duoneb (Ipr 0.5mg/Alb 2.5mg)) 3 ml RBID NEB Last administered on 07/03/18 20:09; Start 06/22/18 at 20:00 Amiodarone HCl (Pacerone, Cordarone) 200 mg DAILY PO Last administered on 07/03/18at 08:31; Start 06/20/18 at 09:00 Bisacodyl (Dulcolax Suppository) 10 mg DAILYPRN PRN [place] CONSTIPATION Last administered on 07/01/18at 15:11; Start 06/26/18 at 11:00 Bisacodyl (Dulcolax Suppository) 10 mg DAILYPRN PRN [place] CONSTIPATION; Start 06/26/18 at 20:30; Stop 06/26/18 at 20:30; Status DC Diltiazem HCl (Cardizem Cd) 240 mg DAILY PO Last administered on 07/03/18at 08:31; Start 06/20/18 at 09:00 Docusate Sodium (Colace) 100 mg BID PO Last administered on 07/03/18at 08:30; Start 06/26/18 at 21:00 Fluoxetine HCl (PROzac) 10 mg DAILY PO Last administered on 06/21/18at 07:50; Start 06/20/18 at 09:00; Stop 06/21/18 at 16:29; Status DC Fluoxetine HCl (PROzac) 20 mg DAILY PO Last administered on 07/03/18at 08:31; Start 06/22/18 at 09:00 Guaifenesin (Mucinex Tab Er) 600 mg BID PO Last administered on 07/03/18at 08:30; Start 06/22/18 at 09:00 Home Med (Med Rec Complete!) ASDIRECTED XX ; Start 06/19/18 at 20:30; Stop 06/19/18 at 20:30; Status DC Hydrocortisone Acetate (Anusol Hc Supp) 25 mg BID MO Last administered on 06/30/18at 20:38; Start 06/27/18 at 21:00 Levofloxacin (Levaquin) 750 mg DAILY@06 PO Last administered on 07/02/18at 06:26; Start 06/23/18 at 06:00; Stop 07/02/18 at 06:01; Status DC Loperamide HCl (Imodium Liquid) 2 mg ASDIRECTED PRN PO DIARRHEA; Start 06/19/18 at 16:45 Metoprolol Succinate (TopROL XL) 50 mg DAILY PO Last administered on 06/27/18at 09:05; Start 06/20/18 at 09:00; Stop 06/27/18 at 14:42; Status DC Metoprolol Succinate (TopROL XL) 75 mg DAILY PO Last administered on 07/03/18at 10:32; Start 06/28/18 at 09:00 Miscellaneous (Unresolved Clarification Entry) SEE LABEL COMMENTS DAILY XX ; Start 07/03/18 at 09:00; Stop 07/03/18 at 13:17; Status DC Miscellaneous (Unresolved Clarification Entry) SEE LABEL COMMENTS DAILY XX ; Start 06/29/18 at 09:00; Stop 06/29/18 at 09:00; Status DC Pantoprazole Sodium (Protonix) 40 mg DAILY PO Last administered on 07/03/18at 08:30; Start 06/20/18 at 09:00 Pravastatin Sodium (Pravachol) 40 mg QHS PO Last administered on 07/02/18at 21:25; Start 06/19/18 at 21:00 Senna (Senokot) 1 tab QHSP PRN PO CONSTIPATION Last administered on 06/30/18at 20:38; Start 06/26/18 at 20:30 Sodium Biphosphate/ Sodium Phosphate (Fleet Enema) 1 ea DAILYPRN PRN [place] CONSTIPATION; Start 06/27/18 at 14:45 Warfarin Sodium (Coumadin) 1 mg DAILY@1700 PO Last administered on 07/03/18at 17:51; Start 07/03/18 at 17:00 Warfarin Sodium (Coumadin) 2.5 mg DAILY@1700 PO Last administered on 07/03/18at 17:50; Start 07/03/18 at 17:00 Warfarin Sodium (Coumadin) 3 mg DAILY@17 PO Last administered on 06/27/18at 16:19; Start 06/27/18 at 17:00; Stop 06/28/18 at 10:50; Status DC Warfarin Sodium (Coumadin) 3 mg DAILY@17 PO Last administered on 07/02/18at 16:58; Start 06/29/18 at 17:00; Stop 07/03/18 at 12:26; Status DC Warfarin Sodium (Coumadin) 3.5 mg DAILY@17 PO ; Start 07/03/18 at 17:00; Status UNV Warfarin Sodium (Coumadin) 5 mg DAILY@17 PO Last administered on 06/25/18at 17:03; Start 06/25/18 at 17:00; Stop 06/26/18 at 10:58; Status DC Zolpidem Tartrate (Ambien) 5 mg QHS PO Last administered on 07/02/18at 21:25; Start 06/20/18 at 21:00 JAC LUNA MD Jul 03, 2018 20:22
[2018-07-03] MEDS: zolPIDEM TARTRATE 5 MG TAB PO SCH (20:34)
[2018-07-03] MEDS: PRAVASTATIN 20 MG TAB PO SCH (20:34)
[2018-07-04 06:00] VITALS: BP 132/73
[2018-07-04 07:39] LABS: BASO % 0.6 % (0.0-1.0); EOS # 0.1 10^3/uL (0.0-0.50); EOS % 2.4 % (0.0-3.0); HEMATOCRIT 40.1 % (42.0-52.0); HEMOGLOBIN 12.8 g/dl (13.5-17.5); LYMPH # 0.8 10^3/uL (1.5-4.5); LYMPH % 14.7 % (24.0-44.0); MEAN CORPUSCULAR HEMOGLOBIN 27.8 pg (27.0-33.0); MEAN CORPUSCULAR HGB CONC 31.9 g/dl (32.0-36.5); MONO # 0.6 10^3/uL (0.0-0.8); MONO % 10.4 % (0.0-5.0); NEUTROPHILS # 3.8 10^3/uL (1.8-7.7); NEUTROPHILS % 71.5 % (36.0-66.0); PLATELET COUNT, AUTOMATED 204 10^3/uL (150-450); RED BLOOD COUNT 4.61 10^6/uL (4.30-6.10); WHITE BLOOD COUNT 5.3 10^3/uL (4.0-10.0)
[2018-07-04] MEDS: IPRATROPIUM 0.5MG/ALBUTEROL 2.5MG INH SOL UD 3ML (DUONEB)(J7620) NEB SCH ×3 (07:43→20:00)
[2018-07-04 07:49] LABS: INR 2.21
[2018-07-04 08:04] LABS: BLOOD UREA NITROGEN 14 MG/DL (7-18); CALCIUM LEVEL 8.3 MG/DL (8.8-10.2); CARBON DIOXIDE LEVEL 28 MEQ/L (21-32); CHLORIDE LEVEL 106 MEQ/L (98-107); CREATININE FOR GFR 0.82 MG/DL (0.70-1.30); GLOMERULAR FILTRATION RATE > 60.0 (>42); GLUCOSE, FASTING 88 MG/DL (70-100); POTASSIUM SERUM 3.8 MEQ/L (3.5-5.1); SODIUM LEVEL 141 MEQ/L (136-145)
[2018-07-04] MEDS: guaiFENesin ER 600 MG TAB PO SCH ×2 (09:32→20:04)
[2018-07-04] MEDS: ANUSOL HC 25MG SUPP PR SCH ×2 (09:32→20:04)
[2018-07-04] MEDS: FLUoxetine 20 MG CAP PO SCH (09:32)
[2018-07-04] MEDS: AMIODARONE 200 MG TAB (PACERONE) PO SCH (09:32)
[2018-07-04] MEDS: DOCUSATE SODIUM 100 MG CAP PO SCH ×2 (09:32→20:04)
[2018-07-04] MEDS: PANTOPRAZOLE 40MG TAB (PROTONIX) PO SCH (09:32)
[2018-07-04] MEDS: METOPROLOL SUCC *XL* 25MG TAB (TopROL *XL*) PO SCH (11:28)
[2018-07-04] MEDS: WARFARIN SOD 2.5 MG TAB PO SCH (18:03)
[2018-07-04] MEDS: WARFARIN SOD 1 MG TAB PO SCH (18:03)
--- NOTE | 2018-07-04 19:12 | IPNPDOC ---
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 REVIEW OF SYSTEMS: The following is a completed review of systems and has been reviewed. Review of systems otherwise unremarkable. PAIN: Patient self reports no pain EYES: Negative EARS, NOSE, & THROAT: dysphagia resolved CARDIOVASCULAR: +AVR and Afib, recent NSTEMI PULMONARY: Negative. Denies shortness of breath no cough GASTROINTESTINAL: + diarrhea and constipation improving, +tenesmus-improving GENITOURINARY: no retention or dysuria MUSCULOSKELETAL: right LE weakness NEUROLOGICAL: right sided hemiparesis HEMATOLOGICAL: on Coumadin SKIN: intact, petechial rash PSYCHIATRIC: Unremarkable All other review of systems found to be negative. PHYSICAL EXAMINATION: VITAL SIGNS: Please see below. GENERAL: Pleasant and cooperative. No acute distress. HEENT: PERRL. Extraocular movements intact. Clear conjunctiva, left sided facial droop CARDIOVASCULAR: Regular rate and rhythm. No murmurs, rubs, or gallops LUNGS: Mostly clear to auscultation bilaterally. No wheezes, however , +cough, transmitted upper airway sounds ABDOMEN:Soft, nontender, nondistended. Positive bowel sounds. Normal active bowel sounds NEUROLOGICAL: Alert and oriented times three. Cranial nerves II through XII grossly intact with eyebrow sparing left facial droop, Sensation grossly intact in all 4 limbs EXTREMITIES: 5/5 strength left elbow flexors/extensors, wrist extensors, machine fastener and abduction 4/5 right elbow flexion and extension, 3+ wrist extension, 3+ machine fastener 5-/5 left hip flexors, knee extensors, ankle DF and EHL, plantar flexion 1/5 right hip flexion, 2/5knee extensors, ankle DF and EHL, trace DF TOne 1/4 right hip flexor and adductor tone SKIN: bilateral anterior calf petechial rash without swelling or induration ASSESSMENT:73-year-old M with past medical history of Aortic Valve replacement, Afib, multiple CVAs who presents status post NSTEMI complicated by stroke PLAN: 1. 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 Neuro: s/p recent bilateral embolic strokes in setting of newly diagnosed Afib and AVR, continue statin, Coumadin, rate and rhythm control -increased Fluoxetine from 10mg to 20mg for motor recovery and mood 3. 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 Alfaro- on Coumadin, diltiazem, amiodarone, and beta [facility] consulted, monitor daily INRs goal 2.5-3.5 -f/u with [facility] cardiolgist in early July for recent catheterization 4. GI: recent hx of diarrhea, Loperamide prn loose stool, monitor for signs of infection-stable, continue bowel meds for constipation- patient with significant tenesmus likely from recent colitis, s/p lactulose-bisacodyl suppository and fleet enema 06-27-18- improving -continue Anusol suppository BID prn for tenesmus-improving 5. GI ppx: Protonix 6. : admission UA and Ucx positive for E Faecalis, s/p 10 day course of Levofloxacin 7. Resp: cough persisting, CXR 06-20-18 negative for acute pathology, breathing treatments ordered and Guaifenesin, afebrile , no leukocytosis, likely upper airway congestion, continue Guaifenesin-resolved 8. Heme: petechial rash with drop in platelets, likely drug induced from recent Levofloxacin which can cause drug-induced thrombocytopenia, will monitor and replete as needed, monitor for signs of bleeding- platelet count improving today 8. Dispo: will extend stay beyond 07-19-18 as has medical needs, is making strides in therapy, and would like to return home, may push back date Allergies Coded Allergies: No Known Allergies (Unverified , 07/15/16) Vital Signs Vital Signs Date Time Temp Pulse Resp B/P (MAP) Pulse Ox O2 Delivery O2 Flow Rate FiO2 07/04/18 11:28 87 133/82 07/04/18 06:00 97.4 18 94 Room Air Laboratory Data CBC/BMP Laboratory Tests 07/04/18 07:10 Red Blood Count 4.61, Mean Corpuscular Volume 87.0, Mean Corpuscular Hemoglobin 27.8, Mean Corpuscular Hemoglobin Concent 31.9 L, Red Cell Distribution Width 15.4 H, Neutrophils (%) (Auto) 71.5 H, Lymphocytes (%) (Auto) 14.7 L, Monocytes (%) (Auto) 10.4 H, Eosinophils (%) (Auto) 2.4, Basophils (%) (Auto) 0.6, Neutrophils # (Auto) 3.8, Lymphocytes # (Auto) 0.8 L, Monocytes # (Auto) 0.6, Eosinophils # (Auto) 0.1, Basophils # (Auto) 0.0, Calcium Level 8.3 L Labs 24H Laboratory Tests 2 07/04/18 07:10: Immature Granulocyte % (Auto) 0.4, White Blood Count 5.3, Red Blood Count 4.61, Hemoglobin 12.8L, Hematocrit 40.1L, Mean Corpuscular Volume 87.0, Mean Corpuscular Hemoglobin 27.8, Mean Corpuscular Hemoglobin Concent 31.9L, Red Cell Distribution Width 15.4H, Platelet Count 204, Neutrophils (%) (Auto) 71.5H, Lymphocytes (%) (Auto) 14.7L, Monocytes (%) (Auto) 10.4H, Eosinophils (%) (Auto) 2.4, Basophils (%) (Auto) 0.6, Neutrophils # (Auto) 3.8, Lymphocytes # (Auto) 0.8L, Monocytes # (Auto) 0.6, Eosinophils # (Auto) 0.1, Basophils # (Auto) 0.0, Nucleated Red Blood Cells % (auto) 0.0, Prothrombin Time 25.0H, Prothromb Time International Ratio 2.21, Anion Gap 7L, Glomerular Filtration Rate > 60.0, Blood Urea Nitrogen 14, Creatinine 0.82, Sodium Level 141, Potassium Level 3.8, Chloride Level 106, Carbon Dioxide Level 28, Calcium Level 8.3L Current Medications Current Medications Current Medications Acetaminophen (Tylenol Tab) 650 mg Q6HP PRN PO PAIN / FEVER Last administered on 06/30/18at 09:30; Start 06/19/18 at 16:45 Albuterol/ Ipratropium (Duoneb (Ipr 0.5mg/Alb 2.5mg)) 3 ml RBID NEB Last administered on 07/03/18at 20:09; Start 06/22/18 at 20:00 Amiodarone HCl (Pacerone, Cordarone) 200 mg DAILY PO Last administered on 07/04/18 09:32; Start 06/20/18 at 09:00 Bisacodyl (Dulcolax Suppository) 10 mg DAILYPRN PRN [place] CONSTIPATION Last administered on 07/01/18at 15:11; Start 06/26/18 at 11:00 Bisacodyl (Dulcolax Suppository) 10 mg DAILYPRN PRN [place] CONSTIPATION; Start 06/26/18 at 20:30; Stop 06/26/18 at 20:30; Status DC Diltiazem HCl (Cardizem Cd) 240 mg DAILY PO Last administered on 07/04/18at 09:32; Start 06/20/18 at 09:00 Docusate Sodium (Colace) 100 mg BID PO Last administered on 07/04/18at 09:32; Start 06/26/18 at 21:00 Fluoxetine HCl (PROzac) 10 mg DAILY PO Last administered on 06/21/18at 07:50; Start 06/20/18 at 09:00; Stop 06/21/18 at 16:29; Status DC Fluoxetine HCl (PROzac) 20 mg DAILY PO Last administered on 07/04/18at 09:32; Start 06/22/18 at 09:00 Guaifenesin (Mucinex Tab Er) 600 mg BID PO Last administered on 07/04/18at 09:32; Start 06/22/18 at 09:00 Home Med (Med Rec Complete!) ASDIRECTED XX ; Start 06/19/18 at 20:30; Stop 06/19/18 at 20:30; Status DC Hydrocortisone Acetate (Anusol Hc Supp) 25 mg BID ND Last administered on 06/30/18at 20:38; Start 06/27/18 at 21:00 Levofloxacin (Levaquin) 750 mg DAILY@06 PO Last administered on 07/02/18at 06:26; Start 06/23/18 at 06:00; Stop 07/02/18 at 06:01; Status DC Loperamide HCl (Imodium Liquid) 2 mg ASDIRECTED PRN PO DIARRHEA; Start 06/19/18 at 16:45 Metoprolol Succinate (TopROL XL) 50 mg DAILY PO Last administered on 06/27/18at 09:05; Start 06/20/18 at 09:00; Stop 06/27/18 at 14:42; Status DC Metoprolol Succinate (TopROL XL) 75 mg DAILY PO Last administered on 07/04/18at 11:28; Start 06/28/18 at 09:00 Miscellaneous (Unresolved Clarification Entry) SEE LABEL COMMENTS DAILY XX ; Start 07/03/18 at 09:00; Stop 07/03/18 at 13:17; Status DC Miscellaneous (Unresolved Clarification Entry) SEE LABEL COMMENTS DAILY XX ; Start 06/29/18 at 09:00; Stop 06/29/18 at 09:00; Status DC Pantoprazole Sodium (Protonix) 40 mg DAILY PO Last administered on 07/04/18at 09:32; Start 06/20/18 at 09:00 Pravastatin Sodium (Pravachol) 40 mg QHS PO Last administered on 07/03/18at 20:34; Start 06/19/18 at 21:00 Senna (Senokot) 1 tab QHSP PRN PO CONSTIPATION Last administered on 06/30/18at 20:38; Start 06/26/18 at 20:30 Sodium Biphosphate/ Sodium Phosphate (Fleet Enema) 1 ea DAILYPRN PRN [place] CONSTIPATION; Start 06/27/18 at 14:45 Warfarin Sodium (Coumadin) 1 mg DAILY@1700 PO Last administered on 07/04/18at 18:03; Start 07/03/18 at 17:00 Warfarin Sodium (Coumadin) 2.5 mg DAILY@1700 PO Last administered on 07/04/18at 18:03; Start 07/03/18 at 17:00 Warfarin Sodium (Coumadin) 3 mg DAILY@17 PO Last administered on 06/27/18at 16:19; Start 06/27/18 at 17:00; Stop 06/28/18 at 10:50; Status DC Warfarin Sodium (Coumadin) 3 mg DAILY@17 PO Last administered on 07/02/18at 16:58; Start 06/29/18 at 17:00; Stop 07/03/18 at 12:26; Status DC Warfarin Sodium (Coumadin) 3.5 mg DAILY@17 PO ; Start 07/03/18 at 17:00; Status UNV Warfarin Sodium (Coumadin) 5 mg DAILY@17 PO Last administered on 06/25/18at 17:03; Start 06/25/18 at 17:00; Stop 06/26/18 at 10:58; Status DC Zolpidem Tartrate (Ambien) 5 mg QHS PO Last administered on 07/03/18at 20:34; Start 06/20/18 at 21:00 JAC LUNA MD Jul 04, 2018 19:12
[2018-07-04 20:00] VITALS: BP 131/72
[2018-07-04] MEDS: zolPIDEM TARTRATE 5 MG TAB PO SCH (20:04)
[2018-07-04] MEDS: PRAVASTATIN 20 MG TAB PO SCH (20:04)
[2018-07-05 06:00] VITALS: BP 139/82
[2018-07-05] MEDS: IPRATROPIUM 0.5MG/ALBUTEROL 2.5MG INH SOL UD 3ML (DUONEB)(J7620) NEB SCH ×2 (08:00→20:00)
[2018-07-05] MEDS: ANUSOL HC 25MG SUPP PR SCH ×2 (09:00→09:25)
[2018-07-05] MEDS: FLUoxetine 20 MG CAP PO SCH (09:20)
[2018-07-05] MEDS: METOPROLOL SUCC *XL* 25MG TAB (TopROL *XL*) PO SCH (09:22)
[2018-07-05] MEDS: guaiFENesin ER 600 MG TAB PO SCH ×2 (09:23→20:14)
[2018-07-05] MEDS: AMIODARONE 200 MG TAB (PACERONE) PO SCH (09:23)
[2018-07-05] MEDS: PANTOPRAZOLE 40MG TAB (PROTONIX) PO SCH (09:23)
[2018-07-05] MEDS: DOCUSATE SODIUM 100 MG CAP PO SCH ×2 (09:23→20:14)
[2018-07-05 10:29] LABS: PROTHROMBIN TIME 23.1 SECONDS (12.1-14.4)
--- NOTE | 2018-07-05 12:42 | IPNPDOC ---
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 REVIEW OF SYSTEMS: The following is a completed review of systems and has been reviewed. Review of systems otherwise unremarkable. PAIN: Patient self reports no pain EYES: Negative EARS, NOSE, & THROAT: dysphagia resolved CARDIOVASCULAR: +AVR and Afib, recent NSTEMI PULMONARY: Negative. Denies shortness of breath no cough GASTROINTESTINAL: + diarrhea and constipation improving, +tenesmus-improving GENITOURINARY: no retention or dysuria MUSCULOSKELETAL: right LE weakness NEUROLOGICAL: right sided hemiparesis HEMATOLOGICAL: on Coumadin SKIN: intact, petechial rash on bilateral anterior shins PSYCHIATRIC: Unremarkable All other review of systems found to be negative. PHYSICAL EXAMINATION: VITAL SIGNS: Please see below. GENERAL: Pleasant and cooperative. No acute distress. HEENT: PERRL. Extraocular movements intact. Clear conjunctiva, left sided facial droop CARDIOVASCULAR: Regular rate and rhythm. No murmurs, rubs, or gallops LUNGS: Mostly clear to auscultation bilaterally. No wheezes, however , +cough, transmitted upper airway sounds ABDOMEN:Soft, nontender, nondistended. Positive bowel sounds. Normal active bowel sounds NEUROLOGICAL: Alert and oriented times three. Cranial nerves II through XII grossly intact with eyebrow sparing left facial droop, Sensation grossly intact in all 4 limbs EXTREMITIES: 5/5 strength left elbow flexors/extensors, wrist extensors, data management specialist and abduction 4/5 right elbow flexion and extension, 3+ wrist extension, 3+ data management specialist 5-/5 left hip flexors, knee extensors, ankle DF and EHL, plantar flexion 1/5 right hip flexion, 2/5knee extensors, ankle DF and EHL, trace DF TOne 1/4 right hip flexor and adductor tone SKIN: bilateral anterior calf petechial rash without swelling or induration ASSESSMENT:73-year-old M with past medical history of Aortic Valve replacement, Afib, multiple CVAs who presents status post NSTEMI complicated by stroke PLAN: 1. 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, MBS upgrade to regular diet and thins, improving seated trunk control and RUE strength, improving [id number], PT instructed to work on stretching right hamstrings to break tone prior to ambulation/standing exercises to avoid flexion tone, able to ambulate short distance with total assistance with right leg advancement -discussed in group huddle today importance of strengthening the left glut med while on standing position/parallel bars to level off the right hip in order to eventually work on right limb hip hiking to clear his foot for short ambulation distances at home -discussed importance of working on trunk control and working on seated controlled trunk flexion 2. Neuro: s/p recent bilateral embolic strokes in setting of newly diagnosed Afib and AVR, continue statin, Coumadin, rate and rhythm control -increased Fluoxetine from 10mg to 20mg for motor recovery and mood 3. 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 Alfaro- on Coumadin, diltiazem, amiodarone, and beta [facility] consulted, monitor daily INRs goal 2.5-3.5 -f/u with [facility] cardiolgist in early July for recent catheterization 4. GI: recent hx of diarrhea, Loperamide prn loose stool, monitor for signs of infection-stable, continue bowel meds for constipation- patient with resolving tenesmus likely from recent colitis, s/p lactulose-bisacodyl suppository and fleet enema 06-27-18- improving -continue Anusol suppository BID prn for tenesmus-improving 5. GI ppx: Protonix 6. : admission UA and Ucx positive for E Faecalis, s/p 10 day course of Levofloxacin 7. Resp: cough persisting, CXR 06-20-18 negative for acute pathology, breathing treatments ordered and Guaifenesin, afebrile , no leukocytosis, likely upper airway congestion, continue Guaifenesin-resolved 8. Heme: petechial rash with drop in platelets, likely drug induced from recent Levofloxacin which can cause drug-induced thrombocytopenia, will monitor and replete as needed, monitor for signs of bleeding- platelet count improving 8. Dispo: will extend stay beyond 07-19-18 as has medical needs, is making strides in therapy, and would like to return home, may push back date- progressing towards goal Allergies Coded Allergies: No Known Allergies (Unverified , 07/15/16) Vital Signs Vital Signs Date Time Temp Pulse Resp B/P (MAP) Pulse Ox O2 Delivery O2 Flow Rate FiO2 07/05/18 09:23 85 07/05/18 09:22 117/66 07/05/18 06:00 97.2 18 93 Room Air Laboratory Data Labs 24H Laboratory Tests 2 07/05/18 09:55: Prothrombin Time 23.1H, Prothromb Time International Ratio 2.00 Current Medications Current Medications Current Medications Acetaminophen (Tylenol Tab) 650 mg Q6HP PRN PO PAIN / FEVER Last administered on 06/30/18 09:30; Start 06/19/18 at 16:45 Albuterol/ Ipratropium (Duoneb (Ipr 0.5mg/Alb 2.5mg)) 3 ml RBID NEB Last administered on 07/03/18at 20:09; Start 06/22/18 at 20:00 Amiodarone HCl (Pacerone, Cordarone) 200 mg DAILY PO Last administered on 07/05/18 09:23; Start 06/20/18 at 09:00 Bisacodyl (Dulcolax Suppository) 10 mg DAILYPRN PRN [place] CONSTIPATION Last administered on 07/01/18at 15:11; Start 06/26/18 at 11:00 Bisacodyl (Dulcolax Suppository) 10 mg DAILYPRN PRN [place] CONSTIPATION; Start 06/26/18 at 20:30; Stop 06/26/18 at 20:30; Status DC Diltiazem HCl (Cardizem Cd) 240 mg DAILY PO Last administered on 07/05/18 09:23; Start 06/20/18 at 09:00 Docusate Sodium (Colace) 100 mg BID PO Last administered on 07/05/18 09:23; Start 06/26/18 at 21:00 Fluoxetine HCl (PROzac) 10 mg DAILY PO Last administered on 06/21/18at 07:50; Start 06/20/18 at 09:00; Stop 06/21/18 at 16:29; Status DC Fluoxetine HCl (PROzac) 20 mg DAILY PO Last administered on 07/05/18at 09:20; Start 06/22/18 at 09:00 Guaifenesin (Mucinex Tab Er) 600 mg BID PO Last administered on 07/05/18at 09:23; Start 06/22/18 at 09:00 Home Med (Med Rec Complete!) ASDIRECTED XX ; Start 06/19/18 at 20:30; Stop 06/19/18 at 20:30; Status DC Hydrocortisone Acetate (Anusol Hc Supp) 25 mg BID VT Last administered on 06/30/18at 20:38; Start 06/27/18 at 21:00 Levofloxacin (Levaquin) 750 mg DAILY@06 PO Last administered on 07/02/18at 06:26; Start 06/23/18 at 06:00; Stop 07/02/18 at 06:01; Status DC Loperamide HCl (Imodium Liquid) 2 mg ASDIRECTED PRN PO DIARRHEA; Start 06/19/18 at 16:45 Metoprolol Succinate (TopROL XL) 50 mg DAILY PO Last administered on 06/27/18at 09:05; Start 06/20/18 at 09:00; Stop 06/27/18 at 14:42; Status DC Metoprolol Succinate (TopROL XL) 75 mg DAILY PO Last administered on 07/05/18at 09:22; Start 06/28/18 at 09:00 Miscellaneous (Unresolved Clarification Entry) SEE LABEL COMMENTS DAILY XX ; Start 07/03/18 at 09:00; Stop 07/03/18 at 13:17; Status DC Miscellaneous (Unresolved Clarification Entry) SEE LABEL COMMENTS DAILY XX ; Start 06/29/18 at 09:00; Stop 06/29/18 at 09:00; Status DC Pantoprazole Sodium (Protonix) 40 mg DAILY PO Last administered on 07/05/18at 09:23; Start 06/20/18 at 09:00 Pravastatin Sodium (Pravachol) 40 mg QHS PO Last administered on 07/04/18at 20:04; Start 06/19/18 at 21:00 Senna (Senokot) 1 tab QHSP PRN PO CONSTIPATION Last administered on 06/30/18at 20:38; Start 06/26/18 at 20:30 Sodium Biphosphate/ Sodium Phosphate (Fleet Enema) 1 ea DAILYPRN PRN [place] CONSTIPATION; Start 06/27/18 at 14:45 Warfarin Sodium (Coumadin) 1 mg DAILY@1700 PO Last administered on 07/04/18at 18:03; Start 07/03/18 at 17:00; Stop 07/05/18 at 11:30; Status DC Warfarin Sodium (Coumadin) 2.5 mg DAILY@1700 PO Last administered on 07/04/18at 18:03; Start 07/03/18 at 17:00; Stop 07/05/18 at 11:30; Status DC Warfarin Sodium (Coumadin) 3 mg DAILY@17 PO Last administered on 06/27/18at 16:19; Start 06/27/18 at 17:00; Stop 06/28/18 at 10:50; Status DC Warfarin Sodium (Coumadin) 3 mg DAILY@17 PO Last administered on 07/02/18at 16:58; Start 06/29/18 at 17:00; Stop 07/03/18 at 12:26; Status DC Warfarin Sodium (Coumadin) 3.5 mg DAILY@17 PO ; Start 07/03/18 at 17:00; Status UNV Warfarin Sodium (Coumadin) 4 mg DAILY@17 PO ; Start 07/05/18 at 17:00 Warfarin Sodium (Coumadin) 5 mg DAILY@17 PO Last administered on 06/25/18at 17:03; Start 06/25/18 at 17:00; Stop 06/26/18 at 10:58; Status DC Zolpidem Tartrate (Ambien) 5 mg QHS PO Last administered on 07/04/18at 20:04; Start 06/20/18 at 21:00 JAC LUNA MD Jul 05, 2018 12:42
[2018-07-05] MEDS ORDERED: ANUSOL HC 25MG SUPP PR PRN (12:45)
[2018-07-05 14:00] VITALS: BP 140/86
[2018-07-05] MEDS: WARFARIN SOD 4 MG TAB PO SCH (17:04)
[2018-07-05 20:00] VITALS: BP 131/75
[2018-07-05] MEDS: zolPIDEM TARTRATE 5 MG TAB PO SCH (20:14)
[2018-07-05] MEDS: BACITRACIN OINT 30GM TOP SCH (20:14)
[2018-07-05] MEDS: PRAVASTATIN 20 MG TAB PO SCH (20:21)
[2018-07-06 06:00] VITALS: BP 125/74
[2018-07-06 06:38] LABS: INR 2.24; PROTHROMBIN TIME 25.2 SECONDS (12.1-14.4)
[2018-07-06] MEDS: IPRATROPIUM 0.5MG/ALBUTEROL 2.5MG INH SOL UD 3ML (DUONEB)(J7620) NEB SCH (07:33)
[2018-07-06] MEDS: FLUoxetine 20 MG CAP PO SCH (08:40)
[2018-07-06] MEDS: DOCUSATE SODIUM 100 MG CAP PO SCH ×2 (08:40→20:08)
[2018-07-06] MEDS: AMIODARONE 200 MG TAB (PACERONE) PO SCH (08:41)
[2018-07-06] MEDS: guaiFENesin ER 600 MG TAB PO SCH (08:41)
[2018-07-06] MEDS: PANTOPRAZOLE 40MG TAB (PROTONIX) PO SCH (08:41)
[2018-07-06] MEDS: BACITRACIN OINT 30GM TOP SCH ×2 (08:42→20:08)
[2018-07-06 09:00] VITALS: BP 131/75
[2018-07-06] MEDS: METOPROLOL SUCC *XL* 25MG TAB (TopROL *XL*) PO SCH (10:54)
[2018-07-06 14:00] VITALS: BP 132/80
[2018-07-06] MEDS: WARFARIN SOD 4 MG TAB PO SCH (16:39)
--- NOTE | 2018-07-06 16:50 | IPNPDOC ---
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 Explained it was unsafe at this point to do alone, but that therapy will focus on making this transfer Mod-I as soon as possible. REVIEW OF SYSTEMS: The following is a completed review of systems and has been reviewed. Review of systems otherwise unremarkable. PAIN: Patient self reports no pain EYES: Negative EARS, NOSE, & THROAT: dysphagia resolved CARDIOVASCULAR: +AVR and Afib, recent NSTEMI PULMONARY: Negative. Denies shortness of breath no cough GASTROINTESTINAL: + diarrhea and constipation improving, +tenesmus-improving GENITOURINARY: no retention or dysuria MUSCULOSKELETAL: right LE weakness NEUROLOGICAL: right sided hemiparesis HEMATOLOGICAL: on Coumadin SKIN: intact, petechial rash on bilateral anterior shins PSYCHIATRIC: Unremarkable All other review of systems found to be negative. PHYSICAL EXAMINATION: VITAL SIGNS: Please see below. GENERAL: Pleasant and cooperative. No acute distress. HEENT: PERRL. Extraocular movements intact. Clear conjunctiva, left sided facial droop CARDIOVASCULAR: Regular rate and rhythm. No murmurs, rubs, or gallops LUNGS: Mostly clear to auscultation bilaterally. No wheezes, however , +cough, transmitted upper airway sounds ABDOMEN:Soft, nontender, nondistended. Positive bowel sounds. Normal active bowel sounds NEUROLOGICAL: Alert and oriented times three. Cranial nerves II through XII grossly intact with eyebrow sparing left facial droop, Sensation grossly intact in all 4 limbs EXTREMITIES: 5/5 strength left elbow flexors/extensors, wrist extensors, fluxer and abduction 4/5 right elbow flexion and extension, 3+ wrist extension, 3+ fluxer 5-/5 left hip flexors, knee extensors, ankle DF and EHL, plantar flexion 1/5 right hip flexion, 2/5knee extensors, ankle DF and EHL, trace DF TOne 1/4 right hip flexor and adductor tone SKIN: bilateral anterior calf petechial rash without swelling or induration ASSESSMENT:73-year-old M with past medical history of Aortic Valve replacement, Afib, multiple CVAs who presents status post NSTEMI complicated by stroke PLAN: 1. 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 for DME, MBS upgrade to regular diet and thins, improving seated trunk control and RUE strength, improving [id number], PT instructed to work on stretching right hamstrings to break tone prior to ambulation/standing exercises to avoid flexion tone, able to ambulate short distance with total assistance with right leg advancement -reinforced in group huddle today importance of strengthening the left glut med while on standing position/parallel bars to level off the right hip in order to eventually work on right limb hip hiking to clear his foot for short ambulation distances at home -discussed importance of working on trunk control and working on seated controlled trunk flexion -will work on becoming Mod-I for stand-pivot transfers to toilet as soon as possible 2. Neuro: s/p recent bilateral embolic strokes in setting of newly diagnosed Afib and AVR, continue statin, Coumadin, rate and rhythm control -increased Fluoxetine from 10mg to 20mg for motor recovery and mood 3. Cardiac: pmh aVR with mechanical valve, not followed by suction worker, will refer to Dr. Alfaro- on Coumadin, diltiazem, amiodarone, and beta [facility] medicine consulted, monitor daily INRs goal 2.5-3.5 -f/u with [facility] cardiolgist in early July for recent catheterization 4. GI: recent hx of diarrhea, Loperamide prn loose stool, monitor for signs of infection-stable, continue bowel meds for constipation- patient with resolving tenesmus likely from recent colitis, s/p lactulose-bisacodyl suppository and fleet enema 06-27-18- improving -continue Anusol suppository BID prn for tenesmus-improving 5. GI ppx: Protonix 6. : admission UA and Ucx positive for E Faecalis, s/p 10 day course of Levofloxacin 7. Resp: cough persisting, CXR 06-20-18 negative for acute pathology, breathing treatments ordered and Guaifenesin, afebrile , no leukocytosis, likely upper airway congestion,will d/c guaifenasin and duonebs as resolved 8. Heme: petechial rash with drop in platelets, likely drug induced from recent Levofloxacin which can cause drug-induced thrombocytopenia, will monitor and replete as needed, monitor for signs of bleeding- platelet count and petechia improving 8. Dispo: will extend stay beyond 07-19-18 as has medical needs, is making strides in therapy, and would like to return home, may push back date- progressing towards goal Allergies Coded Allergies: No Known Allergies (Unverified , 07/15/16) Vital Signs Vital Signs Date Time Temp Pulse Resp B/P (MAP) Pulse Ox O2 Delivery O2 Flow Rate FiO2 07/06/18 14:00 98.2 85 18 132/80 (97) 97 Room Air Laboratory Data Labs 24H Laboratory Tests 2 07/06/18 06:08: Prothrombin Time 25.2H, Prothromb Time International Ratio 2.24 Current Medications Current Medications Current Medications Acetaminophen (Tylenol Tab) 650 mg Q6HP PRN PO PAIN / FEVER Last administered on 06/30/18 09:30; Start 06/19/18 at 16:45 Albuterol/ Ipratropium (Duoneb (Ipr 0.5mg/Alb 2.5mg)) 3 ml RBID NEB Last administered on 07/06/18at 07:33; Start 06/22/18 at 20:00; Stop 07/06/18 at 16:32; Status DC Amiodarone HCl (Pacerone, Cordarone) 200 mg DAILY PO Last administered on 07/06/18 08:41; Start 06/20/18 at 09:00 Bacitracin (Bacitracin Oint) 1 dose BID TOP Last administered on 07/06/18at 08:42; Start 07/05/18 at 21:00 Bisacodyl (Dulcolax Suppository) 10 mg DAILYPRN PRN ID CONSTIPATION Last administered on 07/01/18at 15:11; Start 06/26/18 at 11:00 Bisacodyl (Dulcolax Suppository) 10 mg DAILYPRN PRN ID CONSTIPATION; Start 06/26/18 at 20:30; Stop 06/26/18 at 20:30; Status DC Diltiazem HCl (Cardizem Cd) 240 mg DAILY PO Last administered on 07/06/18 08:41; Start 06/20/18 at 09:00 Docusate Sodium (Colace) 100 mg BID PO Last administered on 07/06/18at 08:40; Start 06/26/18 at 21:00 Fluoxetine HCl (PROzac) 10 mg DAILY PO Last administered on 06/21/18at 07:50; Start 06/20/18 at 09:00; Stop 06/21/18 at 16:29; Status DC Fluoxetine HCl (PROzac) 20 mg DAILY PO Last administered on 07/06/18at 08:40; Start 06/22/18 at 09:00 Guaifenesin (Mucinex Tab Er) 600 mg BID PO Last administered on 07/06/18at 08:41; Start 06/22/18 at 09:00; Stop 07/06/18 at 16:32; Status DC Home Med (Med Rec Complete!) ASDIRECTED XX ; Start 06/19/18 at 20:30; Stop 06/19/18 at 20:30; Status DC Hydrocortisone Acetate (Anusol Hc Supp) 25 mg BID ID Last administered on 06/30/18at 20:38; Start 06/27/18 at 21:00; Stop 07/05/18 at 12:36; Status DC Hydrocortisone Acetate (Anusol Hc Supp) 25 mg BID PRN ID DISCOMFORT; Start 07/05/18 at 12:45 Levofloxacin (Levaquin) 750 mg DAILY@06 PO Last administered on 07/02/18at 06:26; Start 06/23/18 at 06:00; Stop 07/02/18 at 06:01; Status DC Loperamide HCl (Imodium Liquid) 2 mg ASDIRECTED PRN PO DIARRHEA; Start 06/19/18 at 16:45 Metoprolol Succinate (TopROL XL) 50 mg DAILY PO Last administered on 06/27/18at 09:05; Start 06/20/18 at 09:00; Stop 06/27/18 at 14:42; Status DC Metoprolol Succinate (TopROL XL) 75 mg DAILY PO Last administered on 07/06/18at 10:54; Start 06/28/18 at 09:00 Miscellaneous (Unresolved Clarification Entry) SEE LABEL COMMENTS DAILY XX ; Start 07/03/18 at 09:00; Stop 07/03/18 at 13:17; Status DC Miscellaneous (Unresolved Clarification Entry) SEE LABEL COMMENTS DAILY XX ; Start 06/29/18 at 09:00; Stop 06/29/18 at 09:00; Status DC Pantoprazole Sodium (Protonix) 40 mg DAILY PO Last administered on 07/06/18 08:41; Start 06/20/18 at 09:00 Pravastatin Sodium (Pravachol) 40 mg QHS PO Last administered on 07/05/18 20:21; Start 06/19/18 at 21:00 Senna (Senokot) 1 tab QHSP PRN PO CONSTIPATION Last administered on 06/30/18 20:38; Start 06/26/18 at 20:30 Sodium Biphosphate/ Sodium Phosphate (Fleet Enema) 1 ea DAILYPRN PRN ID CONSTIPATION; Start 06/27/18 at 14:45 Warfarin Sodium (Coumadin) 1 mg DAILY@1700 PO Last administered on 07/04/18 18:03; Start 07/03/18 at 17:00; Stop 07/05/18 at 11:30; Status DC Warfarin Sodium (Coumadin) 2.5 mg DAILY@1700 PO Last administered on 07/04/18 18:03; Start 07/03/18 at 17:00; Stop 07/05/18 at 11:30; Status DC Warfarin Sodium (Coumadin) 3 mg DAILY@17 PO Last administered on 06/27/18 16:19; Start 06/27/18 at 17:00; Stop 06/28/18 at 10:50; Status DC Warfarin Sodium (Coumadin) 3 mg DAILY@17 PO Last administered on 07/02/18 16:58; Start 06/29/18 at 17:00; Stop 07/03/18 at 12:26; Status DC Warfarin Sodium (Coumadin) 3.5 mg DAILY@17 PO ; Start 07/03/18 at 17:00; Status UNV Warfarin Sodium (Coumadin) 4 mg DAILY@17 PO Last administered on 07/06/18at 16:39; Start 07/05/18 at 17:00 Warfarin Sodium (Coumadin) 5 mg DAILY@17 PO Last administered on 06/25/18 17:03; Start 06/25/18 at 17:00; Stop 06/26/18 at 10:58; Status DC Zolpidem Tartrate (Ambien) 5 mg QHS PO Last administered on 07/05/18 20:14; Start 06/20/18 at 21:00 JAC LUNA MD Jul 06, 2018 16:50
[2018-07-06 20:00] VITALS: BP 145/80
[2018-07-06] MEDS: zolPIDEM TARTRATE 5 MG TAB PO SCH (20:08)
[2018-07-06] MEDS: PRAVASTATIN 20 MG TAB PO SCH (20:08)
[2018-07-07 06:00] VITALS: BP 118/64
[2018-07-07 07:11] LABS: INR 2.04; PROTHROMBIN TIME 23.4 SECONDS (12.1-14.4)
[2018-07-07 08:00] VITALS: BP 121/73
[2018-07-07] MEDS: DOCUSATE SODIUM 100 MG CAP PO SCH ×2 (08:21→21:00)
[2018-07-07] MEDS: AMIODARONE 200 MG TAB (PACERONE) PO SCH (08:21)
[2018-07-07] MEDS: BACITRACIN OINT 30GM TOP SCH ×2 (08:22→21:02)
[2018-07-07] MEDS: FLUoxetine 20 MG CAP PO SCH (08:22)
[2018-07-07] MEDS: PANTOPRAZOLE 40MG TAB (PROTONIX) PO SCH (08:22)
[2018-07-07] MEDS: METOPROLOL SUCC *XL* 25MG TAB (TopROL *XL*) PO SCH (09:00)
[2018-07-07 14:00] VITALS: BP 133/76
--- NOTE | 2018-07-07 14:25 | IPNPDOC ---
PM&R Progress Note DATE OF SERVICE: Jul 07, 2018 Clinical Support Associate Progress Note Subjective; Patient seen today in his room today moving himself in his wheelchair around different obstacles, smiling, and laughing at himself. He reports he feels well and is eager to keep making functional gains while here. REVIEW OF SYSTEMS: The following is a completed review of systems and has been reviewed. Review of systems otherwise unremarkable. PAIN: Patient self reports no pain EYES: Negative EARS, NOSE, & THROAT: dysphagia resolved CARDIOVASCULAR: +AVR and Afib, recent NSTEMI PULMONARY: Negative. Denies shortness of breath no cough GASTROINTESTINAL: + diarrhea and constipation improving, +tenesmus-improving GENITOURINARY: no retention or dysuria MUSCULOSKELETAL: right LE weakness NEUROLOGICAL: right sided hemiparesis HEMATOLOGICAL: on Coumadin SKIN: intact, petechial rash on bilateral anterior shins PSYCHIATRIC: Unremarkable All other review of systems found to be negative. PHYSICAL EXAMINATION: VITAL SIGNS: Please see below. GENERAL: Pleasant and cooperative. No acute distress. HEENT: PERRL. Extraocular movements intact. Clear conjunctiva, left sided facial droop CARDIOVASCULAR: Regular rate and rhythm. No murmurs, rubs, or gallops LUNGS: Mostly clear to auscultation bilaterally. No wheezes, however , +cough, transmitted upper airway sounds ABDOMEN:Soft, nontender, nondistended. Positive bowel sounds. Normal active bowel sounds NEUROLOGICAL: Alert and oriented times three. Cranial nerves II through XII grossly intact with eyebrow sparing left facial droop, Sensation grossly intact in all 4 limbs EXTREMITIES: 5/5 strength left elbow flexors/extensors, wrist extensors, lift supervisor and abduction 4/5 right elbow flexion and extension, 3+ wrist extension, 3+ lift supervisor 5-/5 left hip flexors, knee extensors, ankle DF and EHL, plantar flexion 1/5 right hip flexion, 2/5knee extensors, ankle DF and EHL, trace DF TOne 1/4 right hip flexor and adductor tone SKIN: bilateral anterior calf petechial rash without swelling or induration ASSESSMENT:73-year-old M with past medical history of Aortic Valve replacement, Afib, multiple CVAs who presents status post NSTEMI complicated by stroke PLAN: 1. 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, MBS upgrade to regular diet and thins, improving seated trunk control and RUE strength, improving [id number], PT instructed to work on stretching right hamstrings to break tone prior to ambulation/standing exercises to avoid flexion tone, able to ambulate short distance with total assistance with right leg advancement -reinforced in group huddle today importance of strengthening the left glut med while on standing position/parallel bars to level off the right hip in order to eventually work on right limb hip hiking to clear his foot for short ambulation distances at home -discussed importance of working on trunk control and working on seated controlled trunk flexion -will work on becoming Mod-I for stand-pivot transfers to toilet as soon as possible -home eval completed, will discuss with family possible minor alterations for the bathroom 2. Neuro: s/p recent bilateral embolic strokes in setting of newly diagnosed Afib and AVR, continue statin, Coumadin, rate and rhythm control -increased Fluoxetine from 10mg to 20mg for motor recovery and mood 3. 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 Alfaro- on Coumadin, diltiazem, amiodarone, and beta michelle family medicine consulted, monitor daily INRs goal 2.5-3.5 -f/u with [facility] cardiolgist in early July for recent catheterization 4. GI: recent hx of diarrhea, Loperamide prn loose stool, monitor for signs of infection-stable, continue bowel meds for constipation- patient with resolving tenesmus likely from recent colitis, s/p lactulose-bisacodyl suppository and fleet enema 06-27-18- improving -continue Anusol suppository BID prn for tenesmus-resolved 5. GI ppx: Protonix 6. : admission UA and Ucx positive for E Faecalis, s/p 10 day course of Levofloxacin 7. Resp: cough persisting, CXR 06-20-18 negative for acute pathology, breathing treatments ordered and Guaifenesin, afebrile , no leukocytosis, likely upper airway congestion,will d/c guaifenasin and duonebs as resolved 8. Heme: petechial rash with drop in platelets, likely drug induced from recent Levofloxacin which can cause drug-induced thrombocytopenia, will monitor and replete as needed, monitor for signs of bleeding- platelet count and petechia improving 8. Dispo: will extend stay beyond 07-19-18 as has medical needs, is making strides in therapy, and would like to return home, may push back date- progressing towards goal Allergies Coded Allergies: No Known Allergies (Unverified , 07/15/16) Vital Signs Vital Signs Date Time Temp Pulse Resp B/P (MAP) Pulse Ox O2 Delivery O2 Flow Rate FiO2 07/07/18 09:00 83 123/76 07/07/18 08:00 97.6 18 95 Room Air Laboratory Data Labs 24H Laboratory Tests 2 07/07/18 06:44: Prothrombin Time 23.4H, Prothromb Time International Ratio 2.04 Current Medications Current Medications Current Medications Acetaminophen (Tylenol Tab) 650 mg Q6HP PRN PO PAIN / FEVER Last administered on 06/30/18 09:30; Start 06/19/18 at 16:45 Albuterol/ Ipratropium (Duoneb (Ipr 0.5mg/Alb 2.5mg)) 3 ml RBID NEB Last administered on 07/06/18at 07:33; Start 06/22/18 at 20:00; Stop 07/06/18 at 1 6:32; Status DC Amiodarone HCl (Pacerone, Cordarone) 200 mg DAILY PO Last administered on 07/07/18at 08:21; Start 06/20/18 at 09:00 Bacitracin (Bacitracin Oint) 1 dose BID TOP Last administered on 07/06/18at 20:08; Start 07/05/18 at 21:00 Bisacodyl (Dulcolax Suppository) 10 mg DAILYPRN PRN AL CONSTIPATION Last administered on 07/01/18at 15:11; Start 06/26/18 at 11:00 Bisacodyl (Dulcolax Suppository) 10 mg DAILYPRN PRN AL CONSTIPATION; Start 06/26/18 at 20:30; Stop 06/26/18 at 20:30; Status DC Diltiazem HCl (Cardizem Cd) 240 mg DAILY PO Last administered on 07/07/18at 08:22; Start 06/20/18 at 09:00 Docusate Sodium (Colace) 100 mg BID PO Last administered on 07/07/18at 08:21; Start 06/26/18 at 21:00 Fluoxetine HCl (PROzac) 10 mg DAILY PO Last administered on 06/21/18at 07:50; Start 06/20/18 at 09:00; Stop 06/21/18 at 16:29; Status DC Fluoxetine HCl (PROzac) 20 mg DAILY PO Last administered on 07/07/18at 08:22; Start 06/22/18 at 09:00 Guaifenesin (Mucinex Tab Er) 600 mg BID PO Last administered on 07/06/18at 08:41; Start 06/22/18 at 09:00; Stop 07/06/18 at 16:32; Status DC Home Med (Med Rec Complete!) ASDIRECTED XX ; Start 06/19/18 at 20:30; Stop 06/19/18 at 20:30; Status DC Hydrocortisone Acetate (Anusol Hc Supp) 25 mg BID AL Last administered on 06/30/18at 20:38; Start 06/27/18 at 21:00; Stop 07/05/18 at 12:36; Status DC Hydrocortisone Acetate (Anusol Hc Supp) 25 mg BID PRN AL DISCOMFORT; Start 07/05/18 at 12:45 Levofloxacin (Levaquin) 750 mg DAILY@06 PO Last administered on 07/02/18at 06:26; Start 06/23/18 at 06:00; Stop 07/02/18 at 06:01; Status DC Loperamide HCl (Imodium Liquid) 2 mg ASDIRECTED PRN PO DIARRHEA; Start 06/19/18 at 16:45 Metoprolol Succinate (TopROL XL) 50 mg DAILY PO Last administered on 06/27/18at 09:05; Start 06/20/18 at 09:00; Stop 06/27/18 at 14:42; Status DC Metoprolol Succinate (TopROL XL) 75 mg DAILY PO Last administered on 07/07/18at 09:00; Start 06/28/18 at 09:00 Miscellaneous (Unresolved Clarification Entry) SEE LABEL COMMENTS DAILY XX ; Start 07/03/18 at 09:00; Stop 07/03/18 at 13:17; Status DC Miscellaneous (Unresolved Clarification Entry) SEE LABEL COMMENTS DAILY XX ; St art 06/29/18 at 09:00; Stop 06/29/18 at 09:00; Status DC Pantoprazole Sodium (Protonix) 40 mg DAILY PO Last administered on 07/07/18 08:22; Start 06/20/18 at 09:00 Pravastatin Sodium (Pravachol) 40 mg QHS PO Last administered on 07/06/18 20:08; Start 06/19/18 at 21:00 Senna (Senokot) 1 tab QHSP PRN PO CONSTIPATION Last administered on 06/30/18at 20:38; Start 06/26/18 at 20:30 Sodium Biphosphate/ Sodium Phosphate (Fleet Enema) 1 ea DAILYPRN PRN AL CONSTIPATION; Start 06/27/18 at 14:45 Warfarin Sodium (Coumadin) 1 mg DAILY@1700 PO Last administered on 07/04/18 18:03; Start 07/03/18 at 17:00; Stop 07/05/18 at 11:30; Status DC Warfarin Sodium (Coumadin) 2.5 mg DAILY@1700 PO Last administered on 07/04/18 18:03; Start 07/03/18 at 17:00; Stop 07/05/18 at 11:30; Status DC Warfarin Sodium (Coumadin) 3 mg DAILY@17 PO Last administered on 06/27/18 16:19; Start 06/27/18 at 17:00; Stop 06/28/18 at 10:50; Status DC Warfarin Sodium (Coumadin) 3 mg DAILY@17 PO Last administered on 07/02/18at 16:58; Start 06/29/18 at 17:00; Stop 07/03/18 at 12:26; Status DC Warfarin Sodium (Coumadin) 3.5 mg DAILY@17 PO ; Start 07/03/18 at 17:00; Status UNV Warfarin Sodium (Coumadin) 4 mg DAILY@17 PO Last administered on 07/06/18at 16:39; Start 07/05/18 at 17:00; Stop 07/07/18 at 11:16; Status DC Warfarin Sodium (Coumadin) 5 mg DAILY@17 PO ; Start 07/07/18 at 17:00 Warfarin Sodium (Coumadin) 5 mg DAILY@17 PO Last administered on 06/25/18 17:03; Start 06/25/18 at 17:00; Stop 06/26/18 at 10:58; Status DC Zolpidem Tartrate (Ambien) 5 mg QHS PO Last administered on 12/13/18at 20:08; Start 06/20/18 at 21:00 JAC LUNA MD Jul 07, 2018 14:24
[2018-07-07] MEDS: WARFARIN SOD 5 MG TAB PO SCH (17:08)
[2018-07-07 21:00] VITALS: BP 149/76
[2018-07-07] MEDS: zolPIDEM TARTRATE 5 MG TAB PO SCH (21:02)
[2018-07-07] MEDS: PRAVASTATIN 20 MG TAB PO SCH (21:02)
[2018-07-08 06:00] VITALS: BP 140/87
[2018-07-08 08:10] LABS: INR 1.85; PROTHROMBIN TIME 21.6 SECONDS (12.1-14.4)
[2018-07-08] MEDS: BACITRACIN OINT 30GM TOP SCH ×2 (09:00→20:49)
[2018-07-08] MEDS: DOCUSATE SODIUM 100 MG CAP PO SCH ×2 (09:00→20:48)
[2018-07-08] MEDS: AMIODARONE 200 MG TAB (PACERONE) PO SCH (09:10)
[2018-07-08] MEDS: PANTOPRAZOLE 40MG TAB (PROTONIX) PO SCH (09:10)
[2018-07-08] MEDS: FLUoxetine 20 MG CAP PO SCH (09:10)
[2018-07-08] MEDS: METOPROLOL SUCC *XL* 25MG TAB (TopROL *XL*) PO SCH (09:11)
[2018-07-08 14:00] VITALS: BP 147/80
[2018-07-08] MEDS: WARFARIN SOD 5 MG TAB PO SCH (17:09)
[2018-07-08 20:00] VITALS: BP 147/53
[2018-07-08] MEDS: PRAVASTATIN 20 MG TAB PO SCH (20:48)
[2018-07-08] MEDS: zolPIDEM TARTRATE 5 MG TAB PO SCH (20:48)
[2018-07-09 06:00] VITALS: BP 112/92
[2018-07-09 07:16] LABS: INR 2.04; PROTHROMBIN TIME 23.4 SECONDS (12.1-14.4)
[2018-07-09] MEDS: FLUoxetine 20 MG CAP PO SCH (08:43)
[2018-07-09] MEDS: AMIODARONE 200 MG TAB (PACERONE) PO SCH (08:44)
[2018-07-09] MEDS: PANTOPRAZOLE 40MG TAB (PROTONIX) PO SCH (08:44)
[2018-07-09] MEDS: DOCUSATE SODIUM 100 MG CAP PO SCH ×2 (08:44→21:50)
[2018-07-09] MEDS: ACETAMINOPHEN TAB 650MG DOSE (2X325MG) PO PRN ×2 (08:45→22:24)
[2018-07-09] MEDS: BACITRACIN OINT 30GM TOP SCH ×2 (09:00→21:00)
[2018-07-09] MEDS: METOPROLOL SUCC *XL* 25MG TAB (TopROL *XL*) PO SCH (09:00)
[2018-07-09 13:37] VITALS: BP 125/79
[2018-07-09] MEDS: WARFARIN SOD 5 MG TAB PO SCH (17:34)
[2018-07-09 20:00] VITALS: BP 155/85
[2018-07-09] MEDS: PRAVASTATIN 20 MG TAB PO SCH (21:50)
[2018-07-09] MEDS: zolPIDEM TARTRATE 5 MG TAB PO SCH (21:50)
[2018-07-10 06:00] VITALS: BP 141/84
[2018-07-10] MEDS: FLEET ENEMA PR PRN (06:22)
[2018-07-10 06:38] LABS: BASO % 0.5 % (0.0-1.0); EOS # 0.1 10^3/uL (0.0-0.50); EOS % 1.9 % (0.0-3.0); HEMATOCRIT 41.5 % (42.0-52.0); HEMOGLOBIN 13.3 g/dl (13.5-17.5); LYMPH # 0.7 10^3/uL (1.5-4.5); LYMPH % 11.7 % (24.0-44.0); MEAN CORPUSCULAR HEMOGLOBIN 27.7 pg (27.0-33.0); MEAN CORPUSCULAR VOLUME 86.3 fl (80.0-96.0); MONO # 0.5 10^3/uL (0.0-0.8); MONO % 8.3 % (0.0-5.0); NEUTROPHILS # 4.9 10^3/uL (1.8-7.7); PLATELET COUNT, AUTOMATED 204 10^3/uL (150-450); RED BLOOD COUNT 4.81 10^6/uL (4.30-6.10); WHITE BLOOD COUNT 6.3 10^3/uL (4.0-10.0)
[2018-07-10 06:53] LABS: BLOOD UREA NITROGEN 14 MG/DL (7-18); CALCIUM LEVEL 8.6 MG/DL (8.8-10.2); CARBON DIOXIDE LEVEL 27 MEQ/L (21-32); CHLORIDE LEVEL 104 MEQ/L (98-107); CREATININE FOR GFR 0.86 MG/DL (0.70-1.30); GLOMERULAR FILTRATION RATE > 60.0 (>42); GLUCOSE, FASTING 93 MG/DL (70-100); POTASSIUM SERUM 3.8 MEQ/L (3.5-5.1); SODIUM LEVEL 139 MEQ/L (136-145)
[2018-07-10 07:02] LABS: INR 2.28; PROTHROMBIN TIME 25.6 SECONDS (12.1-14.4)
[2018-07-10] MEDS: FLUoxetine 20 MG CAP PO SCH (08:55)
[2018-07-10] MEDS: DOCUSATE SODIUM 100 MG CAP PO SCH ×2 (08:55→20:30)
[2018-07-10] MEDS: PANTOPRAZOLE 40MG TAB (PROTONIX) PO SCH (08:55)
[2018-07-10] MEDS: BACITRACIN OINT 30GM TOP SCH ×2 (08:55→20:31)
[2018-07-10] MEDS: AMIODARONE 200 MG TAB (PACERONE) PO SCH (08:55)
--- NOTE | 2018-07-10 09:15 | IPNPDOC ---
Text Note Date of Service The patient's chart was reviewed and managed on 07/10/18. NOTE I reviewed chart, INR 2.28 Continue with current regimen. Recheck INR on VS,Fishbone, I+O VS, Fishbone, I+O Laboratory Tests 07/10/18 06:06 Red Blood Count 4.81, Mean Corpuscular Volume 86.3, Mean Corpuscular Hemoglobin 27.7, Mean Corpuscular Hemoglobin Concent 32.0, Red Cell Distribution Width 15.4 H, Neutrophils (%) (Auto) 77.0 H, Lymphocytes (%) (Auto) 11.7 L, Monocytes (%) (Auto) 8.3 H, Eosinophils (%) (Auto) 1.9, Basophils (%) (Auto) 0.5, Neutrophils # (Auto) 4.9, Lymphocytes # (Auto) 0.7 L, Monocytes # (Auto) 0.5, Eosinophils # (Auto) 0.1, Basophils # (Auto) 0.0, Calcium Level 8.6 L Vital Signs Date Time Temp Pulse Resp B/P (MAP) Pulse Ox O2 Delivery O2 Flow Rate FiO2 07/10/18 08:55 95 141/84 07/10/18 06:00 97.5 19 100 Room Air I&O- Last 24 Hours up to 6 AM 07/10/18 06:00 Intake Total 1540 ml Output Total 275 ml Balance 1265 ml YOUSIF SON Jul 10, 2018 09:15
[2018-07-10] MEDS: METOPROLOL SUCC *XL* 25MG TAB (TopROL *XL*) PO SCH (09:51)
[2018-07-10 14:00] VITALS: BP 125/68
--- NOTE | 2018-07-10 14:11 | IPNPDOC ---
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 REVIEW OF SYSTEMS: The following is a completed review of systems and has been reviewed. Review of systems otherwise unremarkable. PAIN: Patient self reports no pain EYES: Negative EARS, NOSE, & THROAT: dysphagia resolved CARDIOVASCULAR: +AVR and Afib, recent NSTEMI PULMONARY: Negative. Denies shortness of breath no cough GASTROINTESTINAL: + diarrhea and constipation improving, +tenesmus-improving GENITOURINARY: no retention or dysuria MUSCULOSKELETAL: right LE weakness NEUROLOGICAL: right sided hemiparesis HEMATOLOGICAL: on Coumadin SKIN: intact, petechial rash on bilateral anterior shins PSYCHIATRIC: Unremarkable All other review of systems found to be negative. PHYSICAL EXAMINATION: VITAL SIGNS: Please see below. GENERAL: Pleasant and cooperative. No acute distress. HEENT: PERRL. Extraocular movements intact. Clear conjunctiva, left sided facial droop CARDIOVASCULAR: Regular rate and rhythm. No murmurs, rubs, or gallops LUNGS: Mostly clear to auscultation bilaterally. No wheezes, however , +cough, transmitted upper airway sounds ABDOMEN:Soft, nontender, nondistended. Positive bowel sounds. Normal active bowel sounds NEUROLOGICAL: Alert and oriented times three. Cranial nerves II through XII grossly intact with eyebrow sparing left facial droop, Sensation grossly intact in all 4 limbs EXTREMITIES: 5/5 strength left elbow flexors/extensors, wrist extensors, trim setter helper and abduction 4/5 right elbow flexion and extension, 3+ wrist extension, 3+ trim setter helper 5-/5 left hip flexors, knee extensors, ankle DF and EHL, plantar flexion 1/5 right hip flexion, 2/5knee extensors, ankle DF and EHL, trace DF TOne 1/4 right hip flexor and adductor tone SKIN: bilateral anterior calf petechial rash without swelling or induration ASSESSMENT:73-year-old M with past medical history of Aortic Valve replacement, Afib, multiple CVAs who presents status post NSTEMI complicated by stroke PLAN: 1. 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 assess for DME, MBS upgrade to regular diet and thins, improving seated trunk control and RUE strength, improving [id number], PT instructed to work on stretching right hamstrings to break tone prior to ambulation/standing exercises to avoid flexion tone, able to ambulate short distance with total assistance with right leg advancement -reinforced in group huddle today importance of strengthening the left glut med while on standing position/parallel bars to level off the right hip in order to eventually work on right limb hip hiking to clear his foot for short ambulation distances at home -discussed importance of working on trunk control and working on seated controlled trunk flexion -will work on becoming Mod-I for stand-pivot transfers to toilet as soon as possible -home eval completed, will discuss with family possible minor alterations for the bathroom 2. Neuro: s/p recent bilateral embolic strokes in setting of newly diagnosed Afib and AVR, continue statin, Coumadin, rate and rhythm control -increased Fluoxetine from 10mg to 20mg for motor recovery and mood 3. Cardiac: pmh aVR with mechanical valve, not followed by log clerk, will refer to Dr. Alfaro- on Coumadin, diltiazem, amiodarone, and beta [facility] medicine consulted, monitor daily INRs goal 2.5-3.5, -f/u with [facility] cardiolgist in early July for recent catheterization 4. GI: recent hx of diarrhea, Loperamide prn loose stool, monitor for signs of infection-stable, continue bowel meds for constipation- patient with resolving tenesmus likely from recent colitis, s/p lactulose-bisacodyl suppository and fleet enema 06-27-18- improving -continue Anusol suppository BID prn for tenesmus-resolved 5. GI ppx: Protonix 6. : admission UA and Ucx positive for E Faecalis, s/p 10 day course of Levofloxacin 7. Resp: cough persisting, CXR 06-20-18 negative for acute pathology, breathing treatments ordered and Guaifenesin, afebrile , no leukocytosis, likely upper airway congestion,will d/c guaifenasin and duonebs as resolved 8. Heme: petechial rash with drop in platelets, likely drug induced from recent Levofloxacin which can cause drug-induced thrombocytopenia, will monitor and replete as needed, monitor for signs of bleeding- platelet count and petechia improving 9. DVT ppx: on warfarin 8. Dispo: will extend stay beyond 12-26-18 as has medical needs, is still making strides in therapy, and would like to return home, may push back date- progressing towards goal Allergies Coded Allergies: No Known Allergies (Unverified , 07/15/16) Vital Signs Vital Signs Date Time Temp Pulse Resp B/P (MAP) Pulse Ox O2 Delivery O2 Flow Rate FiO2 07/10/18 09:51 98 148/84 07/10/18 06:00 97.5 19 100 Room Air Laboratory Data CBC/BMP Laboratory Tests 07/10/18 06:06 Red Blood Count 4.81, Mean Corpuscular Volume 86.3, Mean Corpuscular Hemoglobin 27.7, Mean Corpuscular Hemoglobin Concent 32.0, Red Cell Distribution Width 15.4 H, Neutrophils (%) (Auto) 77.0 H, Lymphocytes (%) (Auto) 11.7 L, Monocytes (%) (Auto) 8.3 H, Eosinophils (%) (Auto) 1.9, Basophils (%) (Auto) 0.5, Neutrophils # (Auto) 4.9, Lymphocytes # (Auto) 0.7 L, Monocytes # (Auto) 0.5, Eosinophils # (Auto) 0.1, Basophils # (Auto) 0.0, Calcium Level 8.6 L Labs 24H Laboratory Tests 2 07/10/18 06:06: Immature Granulocyte % (Auto) 0.6, White Blood Count 6.3, Red Blood Count 4.81, Hemoglobin 13.3L, Hematocrit 41.5L, Mean Corpuscular Volume 86.3, Mean Corpuscular Hemoglobin 27.7, Mean Corpuscular Hemoglobin Concent 32.0, Red Cell Distribution Width 15.4H, Platelet Count 204, Neutrophils (%) (Auto) 77.0H, Lymphocytes (%) (Auto) 11.7L, Monocytes (%) (Auto) 8.3H, Eosinophils (%) (Auto) 1.9, Basophils (%) (Auto) 0.5, Neutrophils # (Auto) 4.9, Lymphocytes # (Auto) 0.7L, Monocytes # (Auto) 0.5, Eosinophils # (Auto) 0.1, Basophils # (Auto) 0.0, Nucleated Red Blood Cells % (auto) 0.0, Prothrombin Time 25.6H, Prothromb Time International Ratio 2.28, Anion Gap 8, Glomerular Filtration Rate > 60.0, Blood Urea Nitrogen 14, Creatinine 0.86, Sodium Level 139, Potassium Level 3.8, Chloride Level 104, Carbon Dioxide Level 27, Calcium Level 8.6L Current Medications Current Medications Current Medications Acetaminophen (Tylenol Tab) 650 mg Q6HP PRN PO PAIN / FEVER Last administered on 07/09/18 22:24; Start 06/19/18 at 16:45 Albuterol/ Ipratropium (Duoneb (Ipr 0.5mg/Alb 2.5mg)) 3 ml RBID NEB Last administered on 07/06/18 07:33; Start 06/22/18 at 20:00; Stop 07/06/18 at 16:32; Status DC Amiodarone HCl (Pacerone, Cordarone) 200 mg DAILY PO Last administered on 07/10/18at 08:55; Start 06/20/18 at 09:00 Bacitracin (Bacitracin Oint) 1 dose BID TOP Last administered on 07/10/18at 08:55; Start 07/05/18 at 21:00 Bisacodyl (Dulcolax Suppository) 10 mg DAILYPRN PRN [place] CONSTIPATION Last administered on 07/01/18at 15:11; Start 06/26/18 at 11:00 Bisacodyl (Dulcolax Suppository) 10 mg DAILYPRN PRN [place] CONSTIPATION; Start 06/26/18 at 20:30; Stop 06/26/18 at 20:30; Status DC Diltiazem HCl (Cardizem Cd) 240 mg DAILY PO Last administered on 07/10/18at 08:55; Start 06/20/18 at 09:00 Docusate Sodium (Colace) 100 mg BID PO Last administered on 07/10/18at 08:55; Start 06/26/18 at 21:00 Fluoxetine HCl (PROzac) 10 mg DAILY PO Last administered on 06/21/18at 07:50; Start 06/20/18 at 09:00; Stop 06/21/18 at 16:29; Status DC Fluoxetine HCl (PROzac) 20 mg DAILY PO Last administered on 07/10/18at 08:55; Start 06/22/18 at 09:00 Guaifenesin (Mucinex Tab Er) 600 mg BID PO Last administered on 07/06/18at 08:41; Start 06/22/18 at 09:00; Stop 07/06/18 at 16:32; Status DC Home Med (Med Rec Complete!) ASDIRECTED XX ; Start 06/19/18 at 20:30; Stop 06/19/18 at 20:30; Status DC Hydrocortisone Acetate (Anusol Hc Supp) 25 mg BID [place] Last administered on 06/30/18at 20:38; Start 06/27/18 at 21:00; Stop 07/05/18 at 12:36; Status DC Hydrocortisone Acetate (Anusol Hc Supp) 25 mg BID PRN [place] DISCOMFORT; Start 07/05/18 at 12:45 Levofloxacin (Levaquin) 750 mg DAILY@06 PO Last administered on 07/02/18at 06:26; Start 06/23/18 at 06:00; Stop 07/02/18 at 06:01; Status DC Loperamide HCl (Imodium Liquid) 2 mg ASDIRECTED PRN PO DIARRHEA; Start 06/19/18 at 16:45 Metoprolol Succinate (TopROL XL) 50 mg DAILY PO Last administered on 06/27/18at 09:05; Start 06/20/18 at 09:00; Stop 06/27/18 at 14:42; Status DC Metoprolol Succinate (TopROL XL) 75 mg DAILY PO Last administered on 07/10/18at 09:51; Start 06/28/18 at 09:00 Miscellaneous (Unresolved Clarification Entry) SEE LABEL COMMENTS DAILY XX ; St art 07/03/18 at 09:00; Stop 07/03/18 at 13:17; Status DC Miscellaneous (Unresolved Clarification Entry) SEE LABEL COMMENTS DAILY XX ; Start 07/09/18 at 09:00 Miscellaneous (Unresolved Clarification Entry) SEE LABEL COMMENTS DAILY XX ; Start 06/29/18 at 09:00; Stop 06/29/18 at 09:00; Status DC Pantoprazole Sodium (Protonix) 40 mg DAILY PO Last administered on 07/10/18at 08:55; Start 06/20/18 at 09:00 Pravastatin Sodium (Pravachol) 40 mg QHS PO Last administered on 07/09/18at 21:50; Start 06/19/18 at 21:00 Senna (Senokot) 1 tab QHSP PRN PO CONSTIPATION Last administered on 06/30/18at 20:38; Start 06/26/18 at 20:30 Sodium Biphosphate/ Sodium Phosphate (Fleet Enema) 1 ea DAILYPRN PRN [place] CONSTIPATION Last administered on 07/10/18at 06:22; Start 06/27/18 at 14:45 Warfarin Sodium (Coumadin) 1 mg DAILY@1700 PO Last administered on 07/04/18at 18:03; Start 07/03/18 at 17:00; Stop 07/05/18 at 11:30; Status DC Warfarin Sodium (Coumadin) 2 mg DAILY@17 PO ; Start 07/10/18 at 17:00 Warfarin Sodium (Coumadin) 2.5 mg DAILY@1700 PO Last administered on 07/04/18at 18:03; Start 07/03/18 at 17:00; Stop 07/05/18 at 11:30; Status DC Warfarin Sodium (Coumadin) 3 mg DAILY@17 PO Last administered on 06/27/18at 16:19; Start 06/27/18 at 17:00; Stop 06/28/18 at 10:50; Status DC Warfarin Sodium (Coumadin) 3 mg DAILY@17 PO Last administered on 07/02/18at 16:58; Start 06/29/18 at 17:00; Stop 07/03/18 at 12:26; Status DC Warfarin Sodium (Coumadin) 3.5 mg DAILY@17 PO ; Start 07/03/18 at 17:00; Status UNV Warfarin Sodium (Coumadin) 4 mg DAILY@17 PO Last administered on 07/06/18at 16:39; Start 07/05/18 at 17:00; Stop 07/07/18 at 11:16; Status DC Warfarin Sodium (Coumadin) 5 mg DAILY@17 PO Last administered on 07/09/18at 17:34; Start 07/07/18 at 17:00; Stop 07/10/18 at 10:38; Status DC Warfarin Sodium (Coumadin) 5 mg DAILY@17 PO ; Start 07/10/18 at 17:00 Warfarin Sodium (Coumadin) 5 mg DAILY@17 PO Last administered on 06/25/18at 17:03; Start 06/25/18 at 17:00; Stop 06/26/18 at 10:58; Status DC Zolpidem Tartrate (Ambien) 5 mg QHS PO Last administered on 07/09/18at 21:50; Start 06/20/18 at 21:00; Stop 07/10/18 at 13:17; Status DC JAC LUNA MD Jul 10, 2018 14:11
--- NOTE | 2018-07-10 18:04 | REP ---
Duplex extremity venous ultrasound: Bilateral lower extremities. History: Immobility. Question DVT. Findings: The deep veins are anechoic and fully compressible from the groin to the popliteal fossa in the left and right lower extremity. Color flow imaging is homogeneous. Spectral Doppler interrogation demonstrates intact respiratory variation in flow and normal manual augmentation of flow. There is no evidence of deep vein thrombosis. Impression: Negative bilateral lower extremity duplex venous ultrasound. No evidence of deep vein thrombosis. Electronically Signed by Sarwat Helm MD 07/10/2018 05:56 P
[2018-07-10] MEDS: WARFARIN SOD 5 MG TAB PO SCH (18:21)
[2018-07-10] MEDS: WARFARIN SOD 2 MG TAB PO SCH (18:21)
[2018-07-10 20:00] VITALS: BP 138/76
[2018-07-10] MEDS: zolPIDEM TARTRATE 5 MG TAB PO PRN (20:30)
[2018-07-10] MEDS: PRAVASTATIN 20 MG TAB PO SCH (20:30)
[2018-07-10] MEDS: ACETAMINOPHEN TAB 650MG DOSE (2X325MG) PO PRN (20:31)
[2018-07-11 06:00] VITALS: BP 128/60
[2018-07-11] MEDS: PANTOPRAZOLE 40MG TAB (PROTONIX) PO SCH (09:50)
[2018-07-11] MEDS: AMIODARONE 200 MG TAB (PACERONE) PO SCH (09:51)
[2018-07-11] MEDS: FLUoxetine 20 MG CAP PO SCH (09:51)
[2018-07-11] MEDS: DOCUSATE SODIUM 100 MG CAP PO SCH ×2 (09:51→21:20)
[2018-07-11] MEDS: BACITRACIN OINT 30GM TOP SCH ×2 (09:52→21:00)
[2018-07-11 10:41] LABS: INR 2.72; PROTHROMBIN TIME 29.4 SECONDS (12.1-14.4)
[2018-07-11] MEDS: METOPROLOL SUCC *XL* 25MG TAB (TopROL *XL*) PO SCH (11:04)
[2018-07-11 14:00] VITALS: BP 130/78
--- NOTE | 2018-07-11 16:56 | IPNPDOC ---
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 He does not want to limit his po oral intake. REVIEW OF SYSTEMS: The following is a completed review of systems and has been reviewed. Review of systems otherwise unremarkable. PAIN: Patient self reports no pain EYES: Negative EARS, NOSE, & THROAT: dysphagia resolved CARDIOVASCULAR: +AVR and Afib, recent NSTEMI PULMONARY: Negative. Denies shortness of breath no cough GASTROINTESTINAL: + diarrhea and constipation improving, +tenesmus-improving GENITOURINARY: no retention or dysuria MUSCULOSKELETAL: right LE weakness NEUROLOGICAL: right sided hemiparesis HEMATOLOGICAL: on Coumadin SKIN: intact, petechial rash on bilateral anterior shins PSYCHIATRIC: Unremarkable All other review of systems found to be negative. PHYSICAL EXAMINATION: VITAL SIGNS: Please see below. GENERAL: Pleasant and cooperative. No acute distress. HEENT: PERRL. Extraocular movements intact. Clear conjunctiva, left sided facial droop CARDIOVASCULAR: Regular rate and rhythm. No murmurs, rubs, or gallops LUNGS: Mostly clear to auscultation bilaterally. No wheezes, however , +cough, transmitted upper airway sounds ABDOMEN:Soft, nontender, nondistended. Positive bowel sounds. Normal active bowel sounds NEUROLOGICAL: Alert and oriented times three. Cranial nerves II through XII jarad ssly intact with eyebrow sparing left facial droop, Sensation grossly intact in all 4 limbs EXTREMITIES: 5/5 strength left elbow flexors/extensors, wrist extensors, dye operator and abduction 4/5 right elbow flexion and extension, 3+ wrist extension, 3+ dye operator 5-/5 left hip flexors, knee extensors, ankle DF and EHL, plantar flexion 1/5 right hip flexion, 2/5knee extensors, ankle DF and EHL, trace DF TOne 1/4 right hip flexor and adductor tone SKIN: bilateral anterior calf petechial rash without swelling or induration ASSESSMENT:73-year-old M with past medical history of Aortic Valve replacement, Afib, multiple CVAs who presents status post NSTEMI complicated by stroke PLAN: 1. 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, MBS upgrade to regular diet and thins, improving seated trunk control and RUE strength, improving [id number], PT instructed to work on stretching right hamstrings to break tone prior to ambulation/standing exercises to avoid flexion tone, able to ambulate short distance with total assistance with right leg advancement -reinforced in group huddle today importance of strengthening the left glut med while on standing position/parallel bars to level off the right hip in order to eventually work on right limb hip hiking to clear his foot for short ambulation distances at home -discussed importance of working on trunk control and working on seated controlled trunk flexion -will work on becoming Mod-I for stand-pivot transfers to toilet as soon as possible- improving -home eval completed, will discuss with family possible minor alterations for the bathroom 2. Neuro: s/p recent bilateral embolic strokes in setting of newly diagnosed Afib and AVR, continue statin, Coumadin, rate and rhythm control -increased Fluoxetine from 10mg to 20mg for motor recovery and mood 3. 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 Alfaro- on Coumadin, diltiazem, amiodarone, and beta michelle family medicine consulted, monitor daily INRs goal 2.5-3.5, -f/u with [facility] cardiolgist in early July for recent catheterization 4. GI: recent hx of diarrhea, Loperamide prn loose stool, monitor for signs of infection-stable, continue bowel meds for constipation- patient with resolving tenesmus likely from recent colitis, s/p lactulose-bisacodyl suppository and fleet enema 06-27-18- improving -continue Anusol suppository BID prn for tenesmus-resolved 5. GI ppx: Protonix 6. : admission UA and Ucx positive for E Faecalis, s/p 10 day course of Levofloxacin- will start timed voiding trial 7. Resp: cough persisting, CXR 06-20-18 negative for acute pathology, breathing treatments ordered and Guaifenesin, afebrile , no leukocytosis, likely upper airway congestion,will d/c guaifenasin and duonebs as resolved 8. Heme: petechial rash with drop in platelets, likely drug induced from recent Levofloxacin which can cause drug-induced thrombocytopenia, will monitor and replete as needed, monitor for signs of bleeding- platelet count and petechia improving 9. DVT ppx: on warfarin 8. Dispo: will extend stay beyond 07-28-17 as has medical needs, is still making strides in therapy, and would like to return home, may push back date- progre ssing towards goal Allergies Coded Allergies: No Known Allergies (Unverified , 07/15/16) Vital Signs Vital Signs Date Time Temp Pulse Resp B/P (MAP) Pulse Ox O2 Delivery O2 Flow Rate FiO2 07/11/18 14:00 98.2 68 18 130/78 (95) 97 Room Air Laboratory Data Labs 24H Laboratory Tests 2 07/11/18 10:21: Prothrombin Time 29.4H, Prothromb Time International Ratio 2.72 Current Medications Current Medications Current Medications Acetaminophen (Tylenol Tab) 650 mg Q6HP PRN PO PAIN / FEVER Last administered on 07/10/18 20:31; Start 06/19/18 at 16:45 Albuterol/ Ipratropium (Duoneb (Ipr 0.5mg/Alb 2.5mg)) 3 ml RBID NEB Last administered on 07/06/18at 07:33; Start 06/22/18 at 20:00; Stop 07/06/18 at 16:32; Status DC Amiodarone HCl (Pacerone, Cordarone) 200 mg DAILY PO Last administered on 07/11/18 09:51; Start 06/20/18 at 09:00 Bacitracin (Bacitracin Oint) 1 dose BID TOP Last administered on 07/10/18at 08:55; Start 07/05/18 at 21:00 Bisacodyl (Dulcolax Suppository) 10 mg DAILYPRN PRN [place] CONSTIPATION Last administered on 07/01/18at 15:11; Start 06/26/18 at 11:00 Bisacodyl (Dulcolax Suppository) 10 mg DAILYPRN PRN [place] CONSTIPATION; Start 06/26/18 at 20:30; Stop 06/26/18 at 20:30; Status DC Diltiazem HCl (Cardizem Cd) 240 mg DAILY PO Last administered on 07/11/18 09:52; Start 06/20/18 at 09:00 Docusate Sodium (Colace) 100 mg BID PO Last administered on 07/11/18at 09:51; Start 06/26/18 at 21:00 Fluoxetine HCl (PROzac) 10 mg DAILY PO Last administered on 06/21/18at 07:50; Start 06/20/18 at 09:00; Stop 06/21/18 at 16:29; Status DC Fluoxetine HCl (PROzac) 20 mg DAILY PO Last administered on 07/11/18at 09:51; Start 06/22/18 at 09:00 Guaifenesin (Mucinex Tab Er) 600 mg BID PO Last administered on 07/06/18at 08:41; Start 06/22/18 at 09:00; Stop 07/06/18 at 16:32; Status DC Home Med (Med Rec Complete!) ASDIRECTED XX ; Start 06/19/18 at 20:30; Stop 06/19/18 at 20:30; Status DC Hydrocortisone Acetate (Anusol Hc Supp) 25 mg BID [place] Last administered on 06/30/18at 20:38; Start 06/27/18 at 21:00; Stop 07/05/18 at 12:36; Status DC Hydrocortisone Acetate (Anusol Hc Supp) 25 mg BID PRN [place] DISCOMFORT; Start 07/05/18 at 12:45 Levofloxacin (Levaquin) 750 mg DAILY@06 PO Last administered on 07/02/18at 06:26; Start 06/23/18 at 06:00; Stop 07/02/18 at 06:01; Status DC Loperamide HCl (Imodium Liquid) 2 mg ASDIRECTED PRN PO DIARRHEA; Start 06/19/18 at 16:45 Metoprolol Succinate (TopROL XL) 50 mg DAILY PO Last administered on 06/27/18at 09:05; Start 06/20/18 at 09:00; Stop 06/27/18 at 14:42; Status DC Metoprolol Succinate (TopROL XL) 75 mg DAILY PO Last administered on 07/11/18at 11:04; Start 06/28/18 at 09:00 Miscellaneous (Unresolved Clarification Entry) SEE LABEL COMMENTS DAILY XX ; Start 07/03/18 at 09:00; Stop 07/03/18 at 13:17; Status DC Miscellaneous (Unresolved Clarification Entry) SEE LABEL COMMENTS DAILY XX ; Start 07/09/18 at 09:00; Stop 07/10/18 at 14:26; Status DC Miscellaneous (Unresolved Clarification Entry) SEE LABEL COMMENTS DAILY XX ; Start 06/29/18 at 09:00; Stop 06/29/18 at 09:00; Status DC Pantoprazole Sodium (Protonix) 40 mg DAILY PO Last administered on 07/11/18at 09:50; Start 06/20/18 at 09:00 Pravastatin Sodium (Pravachol) 40 mg QHS PO Last administered on 07/10/18at 20:30; Start 06/19/18 at 21:00 Senna (Senokot) 1 tab QHSP PRN PO CONSTIPATION Last administered on 06/30/18at 20:38; Start 06/26/18 at 20:30 Sodium Biphosphate/ Sodium Phosphate (Fleet Enema) 1 ea DAILYPRN PRN [place] CONSTIPATION Last administered on 07/10/18at 06:22; Start 06/27/18 at 14:45 Warfarin Sodium (Coumadin) 1 mg DAILY@1700 PO Last administered on 07/04/18at 18:03; Start 07/03/18 at 17:00; Stop 07/05/18 at 11:30; Status DC Warfarin Sodium (Coumadin) 2 mg DAILY@17 PO Last administered on 07/10/18at 18:21; Start 07/10/18 at 17:00 Warfarin Sodium (Coumadin) 2.5 mg DAILY@1700 PO Last administered on 07/04/18at 18:03; Start 07/03/18 at 17:00; Stop 07/05/18 at 11:30; Status DC Warfarin Sodium (Coumadin) 3 mg DAILY@17 PO Last administered on 06/27/18at 16:19; Start 06/27/18 at 17:00; Stop 06/28/18 at 10:50; Status DC Warfarin Sodium (Coumadin) 3 mg DAILY@17 PO Last administered on 07/02/18at 16:58; Start 06/29/18 at 17:00; Stop 07/03/18 at 12:26; Status DC Warfarin Sodium (Coumadin) 3.5 mg DAILY@17 PO ; Start 07/03/18 at 17:00; Status UNV Warfarin Sodium (Coumadin) 4 mg DAILY@17 PO Last administered on 07/06/18at 16:39; Start 07/05/18 at 17:00; Stop 07/07/18 at 11:16; Status DC Warfarin Sodium (Coumadin) 5 mg DAILY@17 PO Last administered on 07/09/18at 17:34; Start 07/07/18 at 17:00; Stop 07/10/18 at 10:38; Status DC Warfarin Sodium (Coumadin) 5 mg DAILY@17 PO Last administered on 07/10/18at 18:21; Start 07/10/18 at 17:00 Warfarin Sodium (Coumadin) 5 mg DAILY@17 PO Last administered on 06/25/18at 17:03; Start 06/25/18 at 17:00; Stop 06/26/18 at 10:58; Status DC Zolpidem Tartrate (Ambien) 5 mg QHS PO Last administered on 07/09/18at 21:50; Start 06/20/18 at 21:00; Stop 07/10/18 at 13:17; Status DC Zolpidem Tartrate (Ambien) 5 mg QHSP PRN PO INSOMNIA Last administered on 07/10/18at 20:30; Start 07/10/18 at 14:15 JAC LUNA MD Jul 11, 2018 16:56
[2018-07-11] MEDS: WARFARIN SOD 5 MG TAB PO SCH (17:31)
[2018-07-11] MEDS: WARFARIN SOD 2 MG TAB PO SCH (17:32)
[2018-07-11 20:00] VITALS: BP 133/81
[2018-07-11] MEDS: zolPIDEM TARTRATE 5 MG TAB PO PRN (21:20)
[2018-07-11] MEDS: PRAVASTATIN 20 MG TAB PO SCH (21:20)
[2018-07-11] MEDS: ACETAMINOPHEN TAB 650MG DOSE (2X325MG) PO PRN (21:21)
[2018-07-12 06:00] VITALS: BP 153/85
[2018-07-12] MEDS: AMIODARONE 200 MG TAB (PACERONE) PO SCH (08:50)
[2018-07-12] MEDS: PANTOPRAZOLE 40MG TAB (PROTONIX) PO SCH (08:50)
[2018-07-12] MEDS: DOCUSATE SODIUM 100 MG CAP PO SCH ×2 (08:50→21:18)
[2018-07-12] MEDS: FLUoxetine 20 MG CAP PO SCH (08:51)
[2018-07-12] MEDS: BACITRACIN OINT 30GM TOP SCH ×2 (08:51→21:00)
[2018-07-12] MEDS: METOPROLOL SUCC *XL* 25MG TAB (TopROL *XL*) PO SCH (08:51)
[2018-07-12 14:00] VITALS: BP 148/76
[2018-07-12] MEDS: ACETAMINOPHEN TAB 650MG DOSE (2X325MG) PO PRN (14:06)
--- NOTE | 2018-07-12 15:42 | IPNPDOC ---
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 He is agreeable to trial of Estim. REVIEW OF SYSTEMS: The following is a completed review of systems and has been r eviewed. Review of systems otherwise unremarkable. PAIN: Patient self reports no pain EYES: Negative EARS, NOSE, & THROAT: dysphagia resolved CARDIOVASCULAR: +AVR and Afib, recent NSTEMI PULMONARY: Negative. Denies shortness of breath no cough GASTROINTESTINAL: + diarrhea and constipation improving, +tenesmus-improving GENITOURINARY: no retention or dysuria MUSCULOSKELETAL: right LE weakness NEUROLOGICAL: right sided hemiparesis HEMATOLOGICAL: on Coumadin SKIN: intact, petechial rash on bilateral anterior shins PSYCHIATRIC: Unremarkable All other review of systems found to be negative. PHYSICAL EXAMINATION: VITAL SIGNS: Please see below. GENERAL: Pleasant and cooperative. No acute distress. HEENT: PERRL. Extraocular movements intact. Clear conjunctiva, left sided facial droop CARDIOVASCULAR: Regular rate and rhythm. No murmurs, rubs, or gallops LUNGS: Mostly clear to auscultation bilaterally. No wheezes, however , +cough, transmitted upper airway sounds ABDOMEN:Soft, nontender, nondistended. Positive bowel sounds. Normal active bowel sounds NEUROLOGICAL: Alert and oriented times three. Cranial nerves II through XII grossly intact with eyebrow sparing left facial droop, Sensation grossly intact in all 4 limbs EXTREMITIES: 5/5 strength left elbow flexors/extensors, wrist extensors, agricultural chemicals inspector and abduction 4/5 right elbow flexion and extension, 3+ wrist extension, 3+ agricultural chemicals inspector 5-/5 left hip flexors, knee extensors, ankle DF and EHL, plantar flexion 1/5 right hip flexion, 2/5knee extensors, ankle DF and EHL, trace DF Tone 1/4 right hip flexor and adductor tone SKIN: bilateral anterior calf petechial rash without swelling or induration ASSESSMENT:73-year-old M with past medical history of Aortic Valve replacement, Afib, multiple CVAs who presents status post NSTEMI complicated by stroke PLAN: 1. 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 for DME, MBS upgrade to regular diet and thins, improving seated trunk control and RUE strength, improving [id number], PT instructed to work on stretching right hamstrings to break tone prior to ambulation/standing exercises to avoid flexion tone, able to ambulate short distance with total assistance with right leg advancement -reinforced in group huddle today importance of strengthening the left glut med while on standing position/parallel bars to level off the right hip in order to eventually work on right limb hip hiking to clear his foot for short ambulation distances at home -discussed importance of working on trunk control and working on seated controlled trunk flexion -will work on becoming Mod-I for stand-pivot transfers to toilet as soon as possible- improving -home eval completed, will discuss with family possible minor alterations for the bathroom -will trial Estim tomorrow to RLE and possible AFO use 2. Neuro: s/p recent bilateral embolic strokes in setting of newly diagnosed Afib and AVR, continue statin, Coumadin, rate and rhythm control -increased Fluoxetine from 10mg to 20mg for motor recovery and mood 3. Cardiac: pmh aVR with mechanical valve, not followed by claims processor, will refer to Dr. Alfaro- on Coumadin, diltiazem, amiodarone, and beta [facility] family medicine consulted, monitor daily INRs goal 2.5-3.5, -f/u with [facility] cardiolgist in early July for recent catheterization 4. GI: recent hx of diarrhea, Loperamide prn loose stool, monitor for signs of infection-stable, continue bowel meds for constipation- patient with resolving tenesmus likely from recent colitis, s/p lactulose-bisacodyl suppository and fleet enema 06-27-18- improving -continue Anusol suppository BID prn for tenesmus-resolved 5. GI ppx: Protonix 6. : admission UA and Ucx positive for E Faecalis, s/p 10 day course of Levofl oxacin- will start timed voiding trial 7. Resp: cough persisting, CXR 06-20-18 negative for acute pathology, breathing treatments ordered and Guaifenesin, afebrile , no leukocytosis, likely upper airway congestion,will d/c guaifenasin and duonebs as resolved 8. Heme: petechial rash with drop in platelets, likely drug induced from recent Levofloxacin which can cause drug-induced thrombocytopenia, will monitor and replete as needed, monitor for signs of bleeding- platelet count and petechia improving 9. DVT ppx: on warfarin 8. Dispo: will extend stay beyond 07-28-17 as has medical needs, is still making strides in therapy, and would like to return home, may push back date- progressing towards goal Allergies Coded Allergies: No Known Allergies (Unverified , 07/15/16) Vital Signs Vital Signs Date Time Temp Pulse Resp B/P (MAP) Pulse Ox O2 Delivery O2 Flow Rate FiO2 07/12/18 14:00 97.5 78 22 148/76 (100) 95 Room Air Current Medications Current Medications Current Medications Acetaminophen (Tylenol Tab) 650 mg Q6HP PRN PO PAIN / FEVER Last administered on 07/12/18at 14:06; Start 06/19/18 at 16:45 Albuterol/ Ipratropium (Duoneb (Ipr 0.5mg/Alb 2.5mg)) 3 ml RBID NEB Last administered on 07/06/18 07:33; Start 06/22/18 at 20:00; Stop 07/06/18 at 16:32; Status DC Amiodarone HCl (Pacerone, Cordarone) 200 mg DAILY PO Last administered on 07/12/18at 08:50; Start 06/20/18 at 09:00 Bacitracin (Bacitracin Oint) 1 dose BID TOP Last administered on 07/12/18at 08:51; Start 07/05/18 at 21:00 Bisacodyl (Dulcolax Suppository) 10 mg DAILYPRN PRN [place] CONSTIPATION Last administered on 07/01/18at 15:11; Start 06/26/18 at 11:00 Bisacodyl (Dulcolax Suppository) 10 mg DAILYPRN PRN [place] CONSTIPATION; Start 06/26/18 at 20:30; Stop 06/26/18 at 20:30; Status DC Diltiazem HCl (Cardizem Cd) 240 mg DAILY PO Last administered on 07/12/18at 08:50; Start 06/20/18 at 09:00 Docusate Sodium (Colace) 100 mg BID PO Last administered on 07/12/18at 08:50; Start 06/26/18 at 21:00 Fluoxetine HCl (PROzac) 10 mg DAILY PO Last administered on 11/28/18at 07:50; Start 06/20/18 at 09:00; Stop 06/21/18 at 16:29; Status DC Fluoxetine HCl (PROzac) 20 mg DAILY PO Last administered on 07/12/18at 08:51; Start 06/22/18 at 09:00 Guaifenesin (Mucinex Tab Er) 600 mg BID PO Last administered on 07/06/18at 08:41; Start 06/22/18 at 09:00; Stop 07/06/18 at 16:32; Status DC Home Med (Med Rec Complete!) ASDIRECTED XX ; Start 06/19/18 at 20:30; Stop 06/19/18 at 20:30; Status DC Hydrocortisone Acetate (Anusol Hc Supp) 25 mg BID [place] Last administered on 06/30/18at 20:38; Start 06/27/18 at 21:00; Stop 07/05/18 at 12:36; Status DC Hydrocortisone Acetate (Anusol Hc Supp) 25 mg BID PRN [place] DISCOMFORT; Start 07/05/18 at 12:45 Levofloxacin (Levaquin) 750 mg DAILY@06 PO Last administered on 07/02/18at 06:26; Start 06/23/18 at 06:00; Stop 07/02/18 at 06:01; Status DC Loperamide HCl (Imodium Liquid) 2 mg ASDIRECTED PRN PO DIARRHEA; Start 06/19/18 at 16:45 Metoprolol Succinate (TopROL XL) 50 mg DAILY PO Last administered on 06/27/18at 09:05; Start 06/20/18 at 09:00; Stop 06/27/18 at 14:42; Status DC Metoprolol Succinate (TopROL XL) 75 mg DAILY PO Last administered on 07/12/18at 08:51; Start 06/28/18 at 09:00 Miscellaneous (Unresolved Clarification Entry) SEE LABEL COMMENTS DAILY XX ; Start 07/03/18 at 09:00; Stop 07/03/18 at 13:17; Status DC Miscellaneous (Unresolved Clarification Entry) SEE LABEL COMMENTS DAILY XX ; Start 07/09/18 at 09:00; Stop 07/10/18 at 14:26; Status DC Miscellaneous (Unresolved Clarification Entry) SEE LABEL COMMENTS DAILY XX ; Start 06/29/18 at 09:00; Stop 06/29/18 at 09:00; Status DC Pantoprazole Sodium (Protonix) 40 mg DAILY PO Last administered on 07/12/18at 08:50; Start 06/20/18 at 09:00 Pravastatin Sodium (Pravachol) 40 mg QHS PO Last administered on 07/11/18at 21:20; Start 06/19/18 at 21:00 Senna (Senokot) 1 tab QHSP PRN PO CONSTIPATION Last administered on 06/30/18at 20:38; Start 06/26/18 at 20:30 Sodium Biphosphate/ Sodium Phosphate (Fleet Enema) 1 ea DAILYPRN PRN [place] CONSTIPATION Last administered on 07/10/18at 06:22; Start 06/27/18 at 14:45 Warfarin Sodium (Coumadin) 1 mg DAILY@1700 PO Last administered on 07/04/18at 18:03; Start 07/03/18 at 17:00; Stop 07/05/18 at 11:30; Status DC Warfarin Sodium (Coumadin) 2 mg DAILY@17 PO Last administered on 07/11/18at 17:32; Start 07/10/18 at 17:00 Warfarin Sodium (Coumadin) 2.5 mg DAILY@1700 PO Last administered on 07/04/18 18:03; Start 07/03/18 at 17:00; Stop 07/05/18 at 11:30; Status DC Warfarin Sodium (Coumadin) 3 mg DAILY@17 PO Last administered on 06/27/18at 16:19; Start 06/27/18 at 17:00; Stop 06/28/18 at 10:50; Status DC Warfarin Sodium (Coumadin) 3 mg DAILY@17 PO Last administered on 07/02/18at 16:58; Start 06/29/18 at 17:00; Stop 07/03/18 at 12:26; Status DC Warfarin Sodium (Coumadin) 3.5 mg DAILY@17 PO ; Start 07/03/18 at 17:00; Status UNV Warfarin Sodium (Coumadin) 4 mg DAILY@17 PO Last administered on 07/06/18at 1 6:39; Start 07/05/18 at 17:00; Stop 07/07/18 at 11:16; Status DC Warfarin Sodium (Coumadin) 5 mg DAILY@17 PO Last administered on 07/09/18at 17:34; Start 07/07/18 at 17:00; Stop 07/10/18 at 10:38; Status DC Warfarin Sodium (Coumadin) 5 mg DAILY@17 PO Last administered on 07/11/18at 17:31; Start 07/10/18 at 17:00 Warfarin Sodium (Coumadin) 5 mg DAILY@17 PO Last administered on 06/25/18at 17:03; Start 06/25/18 at 17:00; Stop 06/26/18 at 10:58; Status DC Zolpidem Tartrate (Ambien) 5 mg QHS PO Last administered on 07/09/18at 21:50; Start 06/20/18 at 21:00; Stop 07/10/18 at 13:17; Status DC Zolpidem Tartrate (Ambien) 5 mg QHSP PRN PO INSOMNIA Last administered on 07/11/18at 21:20; Start 07/10/18 at 14:15 JAC LUNA MD Jul 12, 2018 15:42
[2018-07-12] MEDS: WARFARIN SOD 5 MG TAB PO SCH (16:48)
[2018-07-12] MEDS: LIDOCAINE 5% (LIDODERM) PATCH TD SCH (16:48)
[2018-07-12] MEDS: WARFARIN SOD 2 MG TAB PO SCH (16:48)
[2018-07-12 20:22] VITALS: BP 169/90
[2018-07-12] MEDS: **NOTE PATIENT COMMENT** MISC XX SCH (21:00)
[2018-07-12] MEDS: PRAVASTATIN 20 MG TAB PO SCH (21:18)
[2018-07-13 06:00] VITALS: BP 116/74
[2018-07-13 07:07] LABS: INR 3.39
[2018-07-13 08:32] VITALS: BP 123/74
[2018-07-13] MEDS: LIDOCAINE 5% (LIDODERM) PATCH TD SCH (08:34)
[2018-07-13] MEDS: DOCUSATE SODIUM 100 MG CAP PO SCH ×2 (08:34→20:33)
[2018-07-13] MEDS: AMIODARONE 200 MG TAB (PACERONE) PO SCH (08:35)
[2018-07-13] MEDS: PANTOPRAZOLE 40MG TAB (PROTONIX) PO SCH (08:35)
[2018-07-13] MEDS: BACITRACIN OINT 30GM TOP SCH ×2 (08:35→20:33)
[2018-07-13] MEDS: FLUoxetine 20 MG CAP PO SCH (08:35)
[2018-07-13] MEDS: METOPROLOL SUCC *XL* 25MG TAB (TopROL *XL*) PO SCH (08:35)
[2018-07-13 14:00] VITALS: BP 139/79
--- NOTE | 2018-07-13 16:26 | IPNPDOC ---
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 He reports he has low back pain worse with lying flat that has been ongoing for over 20 years. REVIEW OF SYSTEMS: The following is a completed review of systems and has been reviewed. Review of systems otherwise unremarkable. PAIN: Patient self reports no pain EYES: Negative EARS, NOSE, & THROAT: dysphagia resolved CARDIOVASCULAR: +AVR and Afib, recent NSTEMI PULMONARY: Negative. Denies shortness of breath no cough GASTROINTESTINAL: + diarrhea and constipation improving, +tenesmus-improving GENITOURINARY: no retention or dysuria MUSCULOSKELETAL: right LE weakness NEUROLOGICAL: right sided hemiparesis HEMATOLOGICAL: on Coumadin SKIN: intact, petechial rash on bilateral anterior shins PSYCHIATRIC: Unremarkable All other review of systems found to be negative. PHYSICAL EXAMINATION: VITAL SIGNS: Please see below. GENERAL: Pleasant and cooperative. No acute distress. HEENT: PERRL. Extraocular movements intact. Clear conjunctiva, left sided facial droop CARDIOVASCULAR: Regular rate and rhythm. No murmurs, rubs, or gallops LUNGS: Mostly clear to auscultation bilaterally. No wheezes, however , +cough, transmitted upper airway sounds ABDOMEN:Soft, nontender, nondistended. Positive bowel sounds. Normal active bowel sounds NEUROLOGICAL: Alert and oriented times three. Cranial nerves II through XII pablito sly intact with eyebrow sparing left facial droop, Sensation grossly intact in all 4 limbs EXTREMITIES: 5/5 strength left elbow flexors/extensors, wrist extensors, ad operations coordinator and abduction 4/5 right elbow flexion and extension, 3+ wrist extension, 3+ ad operations coordinator 5-/5 left hip flexors, knee extensors, ankle DF and EHL, plantar flexion 2/5 right hip flexion, 2/5knee extensors, ankle DF and EHL, trace DF mild TTP bilateral lumbar paraspinals, worse with extension Tone 1/4 right hip flexor and adductor tone SKIN: bilateral anterior calf petechial rash improving ASSESSMENT:73-year-old M with past medical history of Aortic Valve replacement, Afib, multiple CVAs who presents status post NSTEMI complicated by stroke PLAN: 1. 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, MBS upgrade to regular diet and thins -started e-stim to right hip flexos today and able to propel leg forward without assistance, will add AFO for foot clearance -reinforced in group huddle today importance of strengthening the left glut med while on standing position/parallel bars to level off the right hip in order to eventually work on right limb hip hiking to clear his foot for short ambulation distances at home -will work on becoming Mod-I for stand-pivot transfers to toilet as soon as possible- improving -home eval completed, will discuss with family possible minor alterations for the bathroom 2. Neuro: s/p recent bilateral embolic strokes in setting of newly diagnosed Afib and AVR, continue statin, Coumadin, rate and rhythm control -increased Fluoxetine from 10mg to 20mg for motor recovery and mood 3. Cardiac: pmh aVR with mechanical valve, not followed by patient services rep, will refer to Dr. Alfaro- on Coumadin, diltiazem, amiodarone, and beta [facility] family medicine consulted, monitor daily INRs goal 2.5-3.5, -f/u with [facility] cardiolgist in early July for recent catheterization 4. GI: recent hx of diarrhea, Loperamide prn loose stool, monitor for signs of infection-stable, continue bowel meds for constipation- patient with resolving tenesmus likely from recent colitis, s/p lactulose-bisacodyl suppository and fleet enema 06-27-18- improving -continue Anusol suppository BID prn for tenesmus-resolved 5. GI ppx: Protonix 6. : admission UA and Ucx positive for E Faecalis, s/p 10 day course of Levofloxacin- will start timed voiding trial 7. Resp: cough persisting, CXR 06-20-18 negative for acute pathology, breathing treatments ordered and Guaifenesin, afebrile , no leukocytosis, likely upper airway congestion,will d/c guaifenasin and duonebs as resolved 8. Heme: petechial rash with drop in platelets, likely drug induced from recent Levofloxacin which can cause drug-induced thrombocytopenia, will monitor and replete as needed, monitor for signs of bleeding- platelet count and petechia improved 9. DVT ppx: on warfarin, dopplers negative for DVT 10. Pain: patient reports >20 years of low back pain, worse with extension, received by flexion- suspect spinal stenosis and facet arthropathy, will trial Cymbalta 30mg daily and continue lidoderm patch 8. Dispo: will extend stay beyond 07-28-17 as has medical needs, is still making strides in therapy, and would like to return home, may push back date- progressing towards goal Allergies Coded Allergies: No Known Allergies (Unverified , 07/15/16) Vital Signs Vital Signs Date Time Temp Pulse Resp B/P (MAP) Pulse Ox O2 Delivery O2 Flow Rate FiO2 07/13/18 14:00 98.6 78 15 139/79 (99) 98 Room Air Laboratory Data Labs 24H Laboratory Tests 2 07/13/18 06:15: Prothrombin Time 35.0H, Prothromb Time International Ratio 3.39 Current Medications Current Medications Current Medications Acetaminophen (Tylenol Tab) 650 mg Q6HP PRN PO PAIN / FEVER Last administered on 07/12/18 14:06; Start 06/19/18 at 16:45 Albuterol/ Ipratropium (Duoneb (Ipr 0.5mg/Alb 2.5mg)) 3 ml RBID NEB Last administered on 07/06/18at 07:33; Start 06/22/18 at 20:00; Stop 07/06/18 at 16:32; Status DC Amiodarone HCl (Pacerone, Cordarone) 200 mg DAILY PO Last administered on 07/13/18at 08:35; Start 06/20/18 at 09:00 Bacitracin (Bacitracin Oint) 1 dose BID TOP Last administered on 07/13/18at 08:35; Start 07/05/18 at 21:00 Bisacodyl (Dulcolax Suppository) 10 mg DAILYPRN PRN [place] CONSTIPATION Last administered on 07/01/18at 15:11; Start 06/26/18 at 11:00 Bisacodyl (Dulcolax Suppository) 10 mg DAILYPRN PRN [place] CONSTIPATION; Start 06/26/18 at 20:30; Stop 06/26/18 at 20:30; Status DC Diltiazem HCl (Cardizem Cd) 240 mg DAILY PO Last administered on 07/13/18at 08:35; Start 06/20/18 at 09:00 Docusate Sodium (Colace) 100 mg BID PO Last administered on 07/13/18at 08:34; Start 06/26/18 at 21:00 Fluoxetine HCl (PROzac) 10 mg DAILY PO Last administered on 06/21/18at 07:50; Start 06/20/18 at 09:00; Stop 06/21/18 at 16:29; Status DC Fluoxetine HCl (PROzac) 20 mg DAILY PO Last administered on 07/13/18at 08:35; Start 06/22/18 at 09:00 Guaifenesin (Mucinex Tab Er) 600 mg BID PO Last administered on 07/06/18at 08:41; Start 06/22/18 at 09:00; Stop 07/06/18 at 16:32; Status DC Home Med (Med Rec Complete!) ASDIRECTED XX ; Start 06/19/18 at 20:30; Stop 06/19/18 at 20:30; Status DC Hydrocortisone Acetate (Anusol Hc Supp) 25 mg BID [place] Last administered on 06/30/18at 20:38; Start 06/27/18 at 21:00; Stop 07/05/18 at 12:36; Status DC Hydrocortisone Acetate (Anusol Hc Supp) 25 mg BID PRN [place] DISCOMFORT; Start 07/05/18 at 12:45 Levofloxacin (Levaquin) 750 mg DAILY@06 PO Last administered on 07/02/18at 06:26; Start 06/23/18 at 06:00; Stop 07/02/18 at 06:01; Status DC Lidocaine (Lidoderm Patch) 1 patch DAILY TD Last administered on 07/13/18at 08:34; Start 07/12/18 at 09:00 Loperamide HCl (Imodium Liquid) 2 mg ASDIRECTED PRN PO DIARRHEA; Start 06/19/18 at 16:45 Metoprolol Succinate (TopROL XL) 50 mg DAILY PO Last administered on 06/27/18at 09:05; Start 06/20/18 at 09:00; Stop 06/27/18 at 14:42; Status DC Metoprolol Succinate (TopROL XL) 75 mg DAILY PO Last administered on 07/13/18at 08:35; Start 06/28/18 at 09:00 Miscellaneous (Unresolved Clarification Entry) SEE LABEL COMMENTS DAILY XX ; Start 07/03/18 at 09:00; Stop 07/03/18 at 13:17; Status DC Miscellaneous (Unresolved Clarification Entry) SEE LABEL COMMENTS DAILY XX ; Start 07/09/18 at 09:00; Stop 07/10/18 at 14:26; Status DC Miscellaneous (Unresolved Clarification Entry) SEE LABEL COMMENTS DAILY XX ; Start 06/29/18 at 09:00; Stop 06/29/18 at 09:00; Status DC Non-Formulary Medication ( See Comment Field Below ) REMOVE LIDODERM PATCH DAILY@21 XX Last administered on 07/12/18at 21:00; Start 07/12/18 at 21:00 Pantoprazole Sodium (Protonix) 40 mg DAILY PO Last administered on 07/13/18at 08:35; Start 06/20/18 at 09:00 Pravastatin Sodium (Pravachol) 40 mg QHS PO Last administered on 07/12/18at 21:18; Start 06/19/18 at 21:00 Senna (Senokot) 1 tab QHSP PRN PO CONSTIPATION Last administered on 06/30/18at 20:38; Start 06/26/18 at 20:30 Sodium Biphosphate/ Sodium Phosphate (Fleet Enema) 1 ea DAILYPRN PRN [place] CONSTIPATION Last administered on 07/10/18at 06:22; Start 06/27/18 at 14:45 Warfarin Sodium (Coumadin) 1 mg DAILY@1700 PO Last administered on 07/04/18at 18:03; Start 07/03/18 at 17:00; Stop 07/05/18 at 11:30; Status DC Warfarin Sodium (Coumadin) 2 mg DAILY@17 PO Last administered on 07/12/18at 16:48; Start 07/10/18 at 17:00; Stop 07/13/18 at 13:31; Status DC Warfarin Sodium (Coumadin) 2.5 mg DAILY@17 PO ; Start 07/13/18 at 17:00 Warfarin Sodium (Coumadin) 2.5 mg DAILY@1700 PO Last administered on 07/04/18at 18:03; Start 07/03/18 at 17:00; Stop 07/05/18 at 11:30; Status DC Warfarin Sodium (Coumadin) 3 mg DAILY@17 PO Last administered on 06/27/18at 16:19; Start 06/27/18 at 17:00; Stop 06/28/18 at 10:50; Status DC Warfarin Sodium (Coumadin) 3 mg DAILY@17 PO Last administered on 07/02/18at 16:58; Start 06/29/18 at 17:00; Stop 07/03/18 at 12:26; Status DC Warfarin Sodium (Coumadin) 3.5 mg DAILY@17 PO ; Start 07/03/18 at 17:00; Status UNV Warfarin Sodium (Coumadin) 4 mg DAILY@17 PO Last administered on 07/06/18at 16:39; Start 07/05/18 at 17:00; Stop 07/07/18 at 11:16; Status DC Warfarin Sodium (Coumadin) 4 mg DAILY@17 PO ; Start 07/13/18 at 17:00 Warfarin Sodium (Coumadin) 5 mg DAILY@17 PO Last administered on 07/09/18at 17:34; Start 07/07/18 at 17:00; Stop 07/10/18 at 10:38; Status DC Warfarin Sodium (Coumadin) 5 mg DAILY@17 PO Last administered on 07/12/18at 16:48; Start 07/10/18 at 17:00; Stop 07/13/18 at 13:31; Status DC Warfarin Sodium (Coumadin) 5 mg DAILY@17 PO Last administered on 06/25/18at 17:03; Start 06/25/18 at 17:00; Stop 06/26/18 at 10:58; Status DC Zolpidem Tartrate (Ambien) 5 mg QHS PO Last administered on 07/09/18at 21:50; Start 06/20/18 at 21:00; Stop 07/10/18 at 13:17; Status DC Zolpidem Tartrate (Ambien) 5 mg QHSP PRN PO INSOMNIA Last administered on 07/11/18at 21:20; Start 07/10/18 at 14:15 JAC LUNA MD Jul 13, 2018 16:26
[2018-07-13] MEDS: DULoxetine 30 MG CAP (CYMBALTA) PO SCH (16:53)
[2018-07-13] MEDS ORDERED: WARFARIN SOD 2.5 MG TAB PO SCH (17:00)
[2018-07-13] MEDS ORDERED: WARFARIN SOD 4 MG TAB PO SCH (17:00)
[2018-07-13 20:00] VITALS: BP 128/74
[2018-07-13] MEDS: PRAVASTATIN 20 MG TAB PO SCH (20:33)
[2018-07-13] MEDS: **NOTE PATIENT COMMENT** MISC XX SCH (20:34)
[2018-07-14 05:46] VITALS: BP 118/66
[2018-07-14 06:42] LABS: INR 4.64
[2018-07-14] MEDS: DOCUSATE SODIUM 100 MG CAP PO SCH ×2 (09:00→21:14)
[2018-07-14] MEDS: LIDOCAINE 5% (LIDODERM) PATCH TD SCH (09:00)
[2018-07-14] MEDS: FLUoxetine 20 MG CAP PO SCH (09:00)
[2018-07-14] MEDS: DULoxetine 30 MG CAP (CYMBALTA) PO SCH (09:00)
[2018-07-14] MEDS: PANTOPRAZOLE 40MG TAB (PROTONIX) PO SCH (09:00)
[2018-07-14] MEDS: METOPROLOL SUCC *XL* 25MG TAB (TopROL *XL*) PO SCH (09:00)
[2018-07-14] MEDS: BACITRACIN OINT 30GM TOP SCH ×2 (09:00→21:00)
[2018-07-14] MEDS: AMIODARONE 200 MG TAB (PACERONE) PO SCH (09:00)
[2018-07-14 11:51] LABS: BASO % 0.3 % (0.0-1.0); EOS # 0.1 10^3/uL (0.0-0.50); EOS % 2.2 % (0.0-3.0); HEMATOCRIT 40.3 % (42.0-52.0); LYMPH # 0.7 10^3/uL (1.5-4.5); MEAN CORPUSCULAR HEMOGLOBIN 27.9 pg (27.0-33.0); MEAN CORPUSCULAR HGB CONC 32.3 g/dl (32.0-36.5); MEAN CORPUSCULAR VOLUME 86.5 fl (80.0-96.0); MONO # 0.6 10^3/uL (0.0-0.8); MONO % 9.5 % (0.0-5.0); NEUTROPHILS # 4.5 10^3/uL (1.8-7.7); NEUTROPHILS % 76.7 % (36.0-66.0); PLATELET COUNT, AUTOMATED 203 10^3/uL (150-450); RED BLOOD COUNT 4.66 10^6/uL (4.30-6.10); WHITE BLOOD COUNT 5.9 10^3/uL (4.0-10.0)
[2018-07-14 12:21] LABS: BLOOD UREA NITROGEN 16 MG/DL (7-18); CALCIUM LEVEL 8.8 MG/DL (8.8-10.2); CARBON DIOXIDE LEVEL 30 MEQ/L (21-32); CHLORIDE LEVEL 103 MEQ/L (98-107); CREATININE FOR GFR 1.01 MG/DL (0.70-1.30); GLOMERULAR FILTRATION RATE > 60.0 (>42); GLUCOSE, FASTING 89 MG/DL (70-100); POTASSIUM SERUM 3.7 MEQ/L (3.5-5.1); SODIUM LEVEL 139 MEQ/L (136-145)
[2018-07-14] MEDS ORDERED: PERCOCET 5MG/325MG TAB PO PRN (12:30)
[2018-07-14 14:00] VITALS: BP 121/73
--- NOTE | 2018-07-14 15:02 | IPNPDOC ---
PM&R Progress Note DATE OF SERVICE: Jul 14, 2018 Locator Specialist Progress Note Subjective; Patient able to take more steps today without assistance propelling the right leg. He did not endorse low back pain while in therapy, but has been reporting to therapists significant pain when transitioning from chair to bed REVIEW OF SYSTEMS: The following is a completed review of systems and has been reviewed. Review of systems otherwise unremarkable. PAIN: +Low back pain EYES: Negative EARS, NOSE, & THROAT: dysphagia resolved CARDIOVASCULAR: +AVR and Afib, recent NSTEMI PULMONARY: Negative. Denies shortness of breath no cough GASTROINTESTINAL: + diarrhea and constipation improving, +tenesmus-improving GENITOURINARY: no retention or dysuria MUSCULOSKELETAL: right LE weakness NEUROLOGICAL: right sided hemiparesis HEMATOLOGICAL: on Coumadin SKIN: intact, petechial rash on bilateral anterior shins PSYCHIATRIC: Unremarkable All other review of systems found to be negative. PHYSICAL EXAMINATION: VITAL SIGNS: Please see below. GENERAL: Pleasant and cooperative. No acute distress. HEENT: PERRL. Extraocular movements intact. Clear conjunctiva, left sided facial droop CARDIOVASCULAR: Regular rate and rhythm. No murmurs, rubs, or gallops LUNGS: Mostly clear to auscultation bilaterally. No wheezes, however , +cough, transmitted upper airway sounds ABDOMEN:Soft, nontender, nondistended. Positive bowel sounds. Normal active bowel sounds NEUROLOGICAL: Alert and oriented times three. Cranial nerves II through XII grossly intact with eyebrow sparing left facial droop, Sensation grossly intact in all 4 limbs EXTREMITIES: 5/5 strength left elbow flexors/extensors, wrist extensors, senior sales consultant and abduction 4/5 right elbow flexion and extension, 3+ wrist extension, 3+ senior sales consultant 5-/5 left hip flexors, knee extensors, ankle DF and EHL, plantar flexion 2/5 right hip flexion, 2/5knee extensors, ankle DF and EHL, trace DF mild TTP bilateral lumbar paraspinals, worse with extension Tone 1/4 right hip flexor and adductor tone SKIN: bilateral anterior calf petechial rash improving ASSESSMENT:73-year-old M with past medical history of Aortic Valve replacement, Afib, multiple CVAs who presents status post NSTEMI complicated by stroke PLAN: 1. 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, RELATIONSHIP COUNSELOR assess for DME, MBS upgrade to regular diet and thins -continue e-stim to right hip flexors, able to propel his own leg now, ambulating 30 feet with PRW -will work on becoming Mod-I for stand-pivot transfers to toilet as soon as possible- improving -home eval completed, will discuss with family possible minor alterations for the bathroom 2. Neuro: s/p recent bilateral embolic strokes in setting of newly diagnosed Afib and AVR, continue statin, Coumadin, rate and rhythm control -increased Fluoxetine from 10mg to 20mg for motor recovery and mood 3. Cardiac: pmh aVR with mechanical valve, not followed by caretaker grounds, will refer to Dr. Alfaro- on Coumadin, diltiazem, amiodarone, and beta [facility] consulted, monitor daily INRs goal 2.5-3.5, supra-therapeutic around 4.5 on hold today, no signs or concern for active bleeding -f/u with [facility] cardiolgist in early July for recent catheterization 4. GI: recent hx of diarrhea, Loperamide prn loose stool, monitor for signs of infection-stable, continue bowel meds for constipation- patient with resolving tenesmus likely from recent colitis, s/p lactulose-bisacodyl suppository and fleet enema 06-27-18- improving -continue Anusol suppository BID prn for tenesmus-resolved 5. GI ppx: Protonix 6. : admission UA and Ucx positive for E Faecalis, s/p 10 day course of Levofloxacin- will start timed voiding trial 7. Resp: cough persisting, CXR 06-20-18 negative for acute pathology, breathing treatments ordered and Guaifenesin, afebrile , no leukocytosis, likely upper airway congestion,will d/c guaifenasin and duonebs as resolved 8. Heme: petechial rash with drop in platelets, likely drug induced from recent Levofloxacin which can cause drug-induced thrombocytopenia, will monitor and re plete as needed, monitor for signs of bleeding- platelet count and petechia improved 9. DVT ppx: on warfarin, dopplers negative for DVT 10. Pain: patient reports >20 years of low back pain, worse with extension, improved with flexion- suspect spinal stenosis and facet arthropathy, will trial Cymbalta 30mg daily and continue lidoderm patch, adding tramadol 8. Dispo: will extend stay beyond 18 as has medical needs, is still making strides in therapy, and would like to return home, may push back date- progressing towards goal Allergies Coded Allergies: No Known Allergies (Unverified , 07/15/16) Vital Signs Vital Signs Date Time Temp Pulse Resp B/P (MAP) Pulse Ox O2 Delivery O2 Flow Rate FiO2 07/14/18 09:00 81 130/71 07/14/18 05:46 98.2 18 92 07/13/18 20:00 Room Air Laboratory Data CBC/BMP Laboratory Tests 07/14/18 11:40 Red Blood Count 4.66, Mean Corpuscular Volume 86.5, Mean Corpuscular Hemoglobin 27.9, Mean Corpuscular Hemoglobin Concent 32.3, Red Cell Distribution Width 15.3 H, Neutrophils (%) (Auto) 76.7 H, Lymphocytes (%) (Auto) 11.0 L, Monocytes (%) (Auto) 9.5 H, Eosinophils (%) (Auto) 2.2, Basophils (%) (Auto) 0.3, Neutrophils # (Auto) 4.5, Lymphocytes # (Auto) 0.7 L, Monocytes # (Auto) 0.6, Eosinophils # (Auto) 0.1, Basophils # (Auto) 0.0, Calcium Level 8.8 Labs 24H Laboratory Tests 2 07/14/18 06:06: Prothrombin Time 45.0H, Prothromb Time International Ratio 4.64 07/14/18 11:40: Immature Granulocyte % (Auto) 0.3, White Blood Count 5.9, Red Blood Count 4.66, Hemoglobin 13.0L, Hematocrit 40.3L, Mean Corpuscular Volume 86.5, Mean Corpuscular Hemoglobin 27.9, Mean Corpuscular Hemoglobin Concent 32.3, Red Cell Distribution Width 15.3H, Platelet Count 203, Neutrophils (%) (Auto) 76.7H, Lymphocytes (%) (Auto) 11.0L, Monocytes (%) (Auto) 9.5H, Eosinophils (%) (Auto) 2.2, Basophils (%) (Auto) 0.3, Neutrophils # (Auto) 4.5, Lymphocytes # (Auto) 0.7L, Monocytes # (Auto) 0.6, Eosinophils # (Auto) 0.1, Basophils # (Auto) 0.0, Nucleated Red Blood Cells % (auto) 0.0, Anion Gap 6L, Glomerular Filtration Rate > 60.0, Blood Urea Nitrogen 16, Creatinine 1.01, Sodium Level 139, Potassium Level 3.7, Chloride Level 103, Carbon Dioxide Level 30, Calcium Level 8.8 Current Medications Current Medications Current Medications Acetaminophen (Tylenol Tab) 650 mg Q6HP PRN PO PAIN / FEVER Last administered on 07/12/18at 14:06; Start 06/19/18 at 16:45 Albuterol/ Ipratropium (Duoneb (Ipr 0.5mg/Alb 2.5mg)) 3 ml RBID NEB Last administered on 07/06/18 07:33; Start 06/22/18 at 20:00; Stop 07/06/18 at 16:32; Status DC Amiodarone HCl (Pacerone, Cordarone) 200 mg DAILY PO Last administered on 07/14/18at 09:00; Start 06/20/18 at 09:00 Bacitracin (Bacitracin Oint) 1 dose BID TOP Last administered on 07/13/18at 08:35; Start 07/05/18 at 21:00 Bisacodyl (Dulcolax Suppository) 10 mg DAILYPRN PRN [place] CONSTIPATION Last administered on 07/01/18at 15:11; Start 06/26/18 at 11:00 Bisacodyl (Dulcolax Suppository) 10 mg DAILYPRN PRN ND CONSTIPATION; Start 06/26/18 at 20:30; Stop 06/26/18 at 20:30; Status DC Diltiazem HCl (Cardizem Cd) 240 mg DAILY PO Last administered on 07/14/18at 09:00; Start 06/20/18 at 09:00 Docusate Sodium (Colace) 100 mg BID PO Last administered on 07/14/18at 09:00; Start 06/26/18 at 21:00 Duloxetine HCl (Cymbalta) 30 mg DAILY PO Last administered on 07/14/18at 09:00; Start 07/13/18 at 16:15 Fluoxetine HCl (PROzac) 10 mg DAILY PO Last administered on 06/21/18at 07:50; Start 06/20/18 at 09:00; Stop 06/21/18 at 16:29; Status DC Fluoxetine HCl (PROzac) 20 mg DAILY PO Last administered on 07/14/18at 09:00; Start 06/22/18 at 09:00 Guaifenesin (Mucinex Tab Er) 600 mg BID PO Last administered on 07/06/18at 08:41; Start 06/22/18 at 09:00; Stop 07/06/18 at 16:32; Status DC Home Med (Med Rec Complete!) ASDIRECTED XX ; Start 06/19/18 at 20:30; Stop 06/19/18 at 20:30; Status DC Hydrocortisone Acetate (Anusol Hc Supp) 25 mg BID ND Last administered on 06/30/18at 20:38; Start 06/27/18 at 21:00; Stop 07/05/18 at 12:36; Status DC Hydrocortisone Acetate (Anusol Hc Supp) 25 mg BID PRN ND DISCOMFORT; Start 07/05/18 at 12:45 Levofloxacin (Levaquin) 750 mg DAILY@06 PO Last administered on 07/02/18at 06:26; Start 06/23/18 at 06:00; Stop 07/02/18 at 06:01; Status DC Lidocaine (Lidoderm Patch) 1 patch DAILY TD Last administered on 07/14/18at 09:00; Start 07/12/18 at 09:00 Loperamide HCl (Imodium Liquid) 2 mg ASDIRECTED PRN PO DIARRHEA; Start 06/19/18 at 16:45 Metoprolol Succinate (TopROL XL) 50 mg DAILY PO Last administered on 06/27/18at 09:05; Start 06/20/18 at 09:00; Stop 06/27/18 at 14:42; Status DC Metoprolol Succinate (TopROL XL) 75 mg DAILY PO Last administered on 07/14/18at 09:00; Start 06/28/18 at 09:00 Miscellaneous (Unresolved Clarification Entry) SEE LABEL COMMENTS DAILY XX ; Start 07/03/18 at 09:00; Stop 07/03/18 at 13:17; Status DC Miscellaneous (Unresolved Clarification Entry) SEE LABEL COMMENTS DAILY XX ; Start 07/09/18 at 09:00; Stop 07/10/18 at 14:26; Status DC Miscellaneous (Unresolved Clarification Entry) SEE LABEL COMMENTS DAILY XX ; Start 06/29/18 at 09:00; Stop 06/29/18 at 09:00; Status DC Non-Formulary Medication ( See Comment Field Below ) REMOVE LIDODERM PATCH DAILY@21 XX Last administered on 07/13/18at 20:34; Start 07/12/18 at 21:00 Oxycodone/ Acetaminophen (Percocet 5mg/ 325mg Tablet) 1 tab Q4HP PRN PO MILD/MODERATE PAIN (PS 1-7); Start 07/14/18 at 12:30 Pantoprazole Sodium (Protonix) 40 mg DAILY PO Last administered on 07/14/18at 09:00; Start 06/20/18 at 09:00 Pravastatin Sodium (Pravachol) 40 mg QHS PO Last administered on 07/13/18at 20:33; Start 06/19/18 at 21:00 Senna (Senokot) 1 tab QHSP PRN PO CONSTIPATION Last administered on 06/30/18at 20:38; Start 06/26/18 at 20:30 Sodium Biphosphate/ Sodium Phosphate (Fleet Enema) 1 ea DAILYPRN PRN ND CONSTIPATION Last administered on 07/10/18at 06:22; Start 06/27/18 at 14:45 Warfarin Sodium (Coumadin) 1 mg DAILY@1700 PO Last administered on 07/04/18at 18:03; Start 07/03/18 at 17:00; Stop 07/05/18 at 11:30; Status DC Warfarin Sodium (Coumadin) 2 mg DAILY@17 PO Last administered on 07/12/18at 16:48; Start 07/10/18 at 17:00; Stop 07/13/18 at 13:31; Status DC Warfarin Sodium (Coumadin) 2.5 mg DAILY@17 PO Last administered on 07/13/18at 16:53; Start 07/13/18 at 17:00; Stop 07/14/18 at 10:20; Status DC Warfarin Sodium (Coumadin) 2.5 mg DAILY@1700 PO Last administered on 07/04/18at 18:03; Start 07/03/18 at 17:00; Stop 07/05/18 at 11:30; Status DC Warfarin Sodium (Coumadin) 3 mg DAILY@17 PO Last administered on 06/27/18at 16:19; Start 06/27/18 at 17:00; Stop 06/28/18 at 10:50; Status DC Warfarin Sodium (Coumadin) 3 mg DAILY@17 PO Last administered on 07/02/18at 16:58; Start 06/29/18 at 17:00; Stop 07/03/18 at 12:26; Status DC Warfarin Sodium (Coumadin) 3.5 mg DAILY@17 PO ; Start 07/03/18 at 17:00; S david UNGenoveva Warfarin Sodium (Coumadin) 4 mg DAILY@17 PO Last administered on 07/06/18at 16:39; Start 07/05/18 at 17:00; Stop 07/07/18 at 11:16; Status DC Warfarin Sodium (Coumadin) 4 mg DAILY@17 PO Last administered on 07/13/18at 16:53; Start 07/13/18 at 17:00; Stop 07/14/18 at 10:20; Status DC Warfarin Sodium (Coumadin) 5 mg DAILY@17 PO Last administered on 07/09/18at 17:34; Start 07/07/18 at 17:00; Stop 07/10/18 at 10:38; Status DC Warfarin Sodium (Coumadin) 5 mg DAILY@17 PO Last administered on 07/12/18at 16:48; Start 07/10/18 at 17:00; Stop 07/13/18 at 13:31; Status DC Warfarin Sodium (Coumadin) 5 mg DAILY@17 PO Last administered on 06/25/18at 17:03; Start 06/25/18 at 17:00; Stop 06/26/18 at 10:58; Status DC Zolpidem Tartrate (Ambien) 5 mg QHS PO Last administered on 07/09/18at 21:50; Start 06/20/18 at 21:00; Stop 07/10/18 at 13:17; Status DC Zolpidem Tartrate (Ambien) 5 mg QHSP PRN PO INSOMNIA Last administered on 07/11/18at 21:20; Start 07/10/18 at 14:15 JAC LUNA MD Jul 14, 2018 15:02
[2018-07-14] MEDS: GABAPENTIN 100 MG CAP PO SCH ×2 (16:00→21:14)
[2018-07-14 20:00] VITALS: BP 144/64
[2018-07-14] MEDS: **NOTE PATIENT COMMENT** MISC XX SCH (21:00)
[2018-07-14] MEDS: PRAVASTATIN 20 MG TAB PO SCH (21:14)
[2018-07-14] MEDS: tiZANidine 4 MG TAB PO PRN (21:14)
[2018-07-15 06:00] VITALS: BP 144/84
[2018-07-15 06:57] LABS: INR 4.24; PROTHROMBIN TIME 41.8 SECONDS (12.1-14.4)
[2018-07-15] MEDS: BACITRACIN OINT 30GM TOP SCH ×2 (08:46→21:00)
[2018-07-15] MEDS: FLUoxetine 20 MG CAP PO SCH (08:47)
[2018-07-15] MEDS: GABAPENTIN 100 MG CAP PO SCH ×3 (08:47→21:54)
[2018-07-15] MEDS: PANTOPRAZOLE 40MG TAB (PROTONIX) PO SCH (08:47)
[2018-07-15] MEDS: DULoxetine 30 MG CAP (CYMBALTA) PO SCH (08:47)
[2018-07-15] MEDS: DOCUSATE SODIUM 100 MG CAP PO SCH ×2 (08:47→21:54)
[2018-07-15] MEDS: AMIODARONE 200 MG TAB (PACERONE) PO SCH (08:48)
[2018-07-15] MEDS: LIDOCAINE 5% (LIDODERM) PATCH TD SCH (08:48)
[2018-07-15] MEDS: METOPROLOL SUCC *XL* 25MG TAB (TopROL *XL*) PO SCH (10:52)
[2018-07-15 14:00] VITALS: BP 152/84
[2018-07-15 20:00] VITALS: BP 143/77
[2018-07-15] MEDS: **NOTE PATIENT COMMENT** MISC XX SCH (21:00)
[2018-07-15] MEDS: PRAVASTATIN 20 MG TAB PO SCH (21:54)
[2018-07-15] MEDS: SENNA 8.6 MG TAB (SENOKOT) PO PRN (21:55)
[2018-07-15] MEDS: tiZANidine 4 MG TAB PO PRN (21:55)
[2018-07-16 06:00] VITALS: BP 156/82
[2018-07-16 07:13] LABS: INR 3.74; PROTHROMBIN TIME 37.9 SECONDS (12.1-14.4)
[2018-07-16] MEDS: FLUoxetine 20 MG CAP PO SCH (08:42)
[2018-07-16] MEDS: PANTOPRAZOLE 40MG TAB (PROTONIX) PO SCH (08:42)
[2018-07-16] MEDS: DULoxetine 30 MG CAP (CYMBALTA) PO SCH (08:42)
[2018-07-16] MEDS: GABAPENTIN 100 MG CAP PO SCH ×3 (08:42→19:41)
[2018-07-16] MEDS: AMIODARONE 200 MG TAB (PACERONE) PO SCH (08:42)
[2018-07-16] MEDS: DOCUSATE SODIUM 100 MG CAP PO SCH ×2 (08:42→19:41)
[2018-07-16] MEDS: tiZANidine 4 MG TAB PO PRN ×2 (08:42→19:41)
[2018-07-16] MEDS: BACITRACIN OINT 30GM TOP SCH ×2 (08:43→19:42)
[2018-07-16] MEDS: LIDOCAINE 5% (LIDODERM) PATCH TD SCH (08:43)
[2018-07-16] MEDS: METOPROLOL SUCC *XL* 25MG TAB (TopROL *XL*) PO SCH (09:47)
[2018-07-16 14:00] VITALS: BP 134/64
[2018-07-16] MEDS: SENNA 8.6 MG TAB (SENOKOT) PO PRN (19:41)
[2018-07-16] MEDS: PRAVASTATIN 20 MG TAB PO SCH (19:41)
[2018-07-16] MEDS: **NOTE PATIENT COMMENT** MISC XX SCH (19:42)
[2018-07-16 20:00] VITALS: BP 151/81
--- NOTE | 2018-07-16 23:59 | IPNPDOC ---
Text Note Date of Service The patient was managed on 07/16/18. NOTE His INR remains supratherapeutic, though it is coming back down. Warfarin remains on hold. I suspect that some of his medications including new ones like fluoxetine and duloxetine may be the source of the elevated INR. When he does get back into the therapeutic range his dose should be lower when it is resumed and we can work up from there as needed. VS,Fishbone, I+O VS, Fishbone, I+O Vital Signs Date Time Temp Pulse Resp B/P (MAP) Pulse Ox O2 Delivery O2 Flow Rate FiO2 07/16/18 20:00 98.9 70 19 151/81 (104) 96 Room Air I&O- Last 24 Hours up to 6 AM 07/16/18 06:00 Intake Total 1220 ml Output Total 600 ml Balance 620 ml Mikie Resendez MD Jul 16, 2018 23:59
[2018-07-17] MEDS: BISACODYL 10 MG SUPP PR PRN (02:38)
[2018-07-17 06:00] VITALS: BP 159/85
[2018-07-17 07:08] LABS: INR 3.13; PROTHROMBIN TIME 32.9 SECONDS (12.1-14.4)
[2018-07-17] MEDS: FLUoxetine 20 MG CAP PO SCH (08:54)
[2018-07-17] MEDS: PANTOPRAZOLE 40MG TAB (PROTONIX) PO SCH (08:54)
[2018-07-17] MEDS: BACITRACIN OINT 30GM TOP SCH ×2 (08:54→20:48)
[2018-07-17] MEDS: LIDOCAINE 5% (LIDODERM) PATCH TD SCH (08:54)
[2018-07-17] MEDS: AMIODARONE 200 MG TAB (PACERONE) PO SCH (08:55)
[2018-07-17] MEDS: DOCUSATE SODIUM 100 MG CAP PO SCH ×2 (08:55→20:47)
[2018-07-17] MEDS: GABAPENTIN 100 MG CAP PO SCH ×3 (08:55→20:46)
[2018-07-17] MEDS: DULoxetine 30 MG CAP (CYMBALTA) PO SCH (08:55)
[2018-07-17] MEDS: METOPROLOL SUCC *XL* 25MG TAB (TopROL *XL*) PO SCH (08:56)
[2018-07-17] MEDS: tiZANidine 4 MG TAB PO PRN (11:23)
[2018-07-17] MEDS: ACETAMINOPHEN TAB 650MG DOSE (2X325MG) PO PRN (11:24)
[2018-07-17 14:00] VITALS: BP 129/65
[2018-07-17] MEDS: WARFARIN SOD 2 MG TAB PO SCH (16:44)
[2018-07-17 20:00] VITALS: BP 138/81
[2018-07-17] MEDS: PRAVASTATIN 20 MG TAB PO SCH (20:47)
[2018-07-17] MEDS: **NOTE PATIENT COMMENT** MISC XX SCH (20:48)
[2018-07-18 06:00] VITALS: BP 149/72
[2018-07-18 06:59] LABS: INR 2.29; PROTHROMBIN TIME 25.7 SECONDS (12.1-14.4)
[2018-07-18] MEDS: BACITRACIN OINT 30GM TOP SCH ×2 (09:00→20:05)
[2018-07-18] MEDS: LIDOCAINE 5% (LIDODERM) PATCH TD SCH (09:00)
[2018-07-18] MEDS: AMIODARONE 200 MG TAB (PACERONE) PO SCH (10:12)
[2018-07-18] MEDS: DOCUSATE SODIUM 100 MG CAP PO SCH ×2 (10:12→20:04)
[2018-07-18] MEDS: FLUoxetine 20 MG CAP PO SCH (10:12)
[2018-07-18] MEDS: GABAPENTIN 100 MG CAP PO SCH ×3 (10:13→20:05)
[2018-07-18] MEDS: PANTOPRAZOLE 40MG TAB (PROTONIX) PO SCH (10:13)
[2018-07-18] MEDS: DULoxetine 30 MG CAP (CYMBALTA) PO SCH (10:13)
[2018-07-18] MEDS: METOPROLOL SUCC *XL* 25MG TAB (TopROL *XL*) PO SCH (11:19)
[2018-07-18 14:00] VITALS: BP 116/69
[2018-07-18] MEDS: ACETAMINOPHEN TAB 650MG DOSE (2X325MG) PO PRN (16:41)
[2018-07-18] MEDS: WARFARIN SOD 2 MG TAB PO SCH (16:42)
[2018-07-18 20:00] VITALS: BP 156/80
[2018-07-18] MEDS: SENNA 8.6 MG TAB (SENOKOT) PO PRN (20:04)
[2018-07-18] MEDS: PRAVASTATIN 20 MG TAB PO SCH (20:05)
[2018-07-18] MEDS: **NOTE PATIENT COMMENT** MISC XX SCH (20:05)
[2018-07-19 05:30] VITALS: BP 144/73
[2018-07-19 07:10] LABS: INR 1.83; PROTHROMBIN TIME 21.5 SECONDS (12.1-14.4)
[2018-07-19] MEDS: LIDOCAINE 5% (LIDODERM) PATCH TD SCH (09:00)
[2018-07-19] MEDS: BACITRACIN OINT 30GM TOP SCH ×2 (09:00→20:52)
[2018-07-19 09:52] VITALS: BP 144/76
[2018-07-19] MEDS: FLUoxetine 20 MG CAP PO SCH (09:54)
[2018-07-19] MEDS: DOCUSATE SODIUM 100 MG CAP PO SCH ×2 (09:54→20:51)
[2018-07-19] MEDS: GABAPENTIN 100 MG CAP PO SCH ×3 (09:54→20:51)
[2018-07-19] MEDS: PANTOPRAZOLE 40MG TAB (PROTONIX) PO SCH (09:54)
[2018-07-19] MEDS: METOPROLOL SUCC *XL* 25MG TAB (TopROL *XL*) PO SCH (09:54)
[2018-07-19] MEDS: AMIODARONE 200 MG TAB (PACERONE) PO SCH (09:54)
[2018-07-19] MEDS: DULoxetine 30 MG CAP (CYMBALTA) PO SCH (09:54)
[2018-07-19] MEDS: tiZANidine 4 MG TAB PO PRN ×2 (09:55→20:51)
[2018-07-19 14:15] VITALS: BP 157/87
[2018-07-19] MEDS: BISACODYL 10 MG SUPP PR PRN (16:47)
--- NOTE | 2018-07-19 16:48 | IPNPDOC ---
PM&R Progress Note DATE OF SERVICE: Jul 19, 2018 Correctional Therapy Teacher Progress Note Subjective; Patient reports back pain is slightly better and only has it with going from seated to lying down, however working on compensatory methods to alleviate this issue. [employer] paperwork filled out for [employer] license. REVIEW OF SYSTEMS: The following is a completed review of systems and has been reviewed. Review of systems otherwise unremarkable. PAIN: +Low back pain EYES: Negative EARS, NOSE, & THROAT: dysphagia resolved CARDIOVASCULAR: +AVR and Afib, recent NSTEMI PULMONARY: Negative. Denies shortness of breath no cough GASTROINTESTINAL: + diarrhea and constipation improving, +tenesmus-improving GENITOURINARY: no retention or dysuria MUSCULOSKELETAL: right LE weakness NEUROLOGICAL: right sided hemiparesis HEMATOLOGICAL: on Coumadin SKIN: intact, petechial rash on bilateral anterior shins PSYCHIATRIC: Unremarkable All other review of systems found to be negative. PHYSICAL EXAMINATION: VITAL SIGNS: Please see below. GENERAL: Pleasant and cooperative. No acute distress. HEENT: PERRL. Extraocular movements intact. Clear conjunctiva, left sided facial droop CARDIOVASCULAR: Regular rate and rhythm. No murmurs, rubs, or gallops LUNGS: Mostly clear to auscultation bilaterally. No wheezes, however , +cough, transmitted upper airway sounds ABDOMEN:Soft, nontender, nondistended. Positive bowel sounds. Normal active bowel sounds NEUROLOGICAL: Alert and oriented times three. Cranial nerves II through XII grossly intact with eyebrow sparing left facial droop, Sensation grossly intact in all 4 limbs EXTREMITIES: 5/5 strength left elbow flexors/extensors, wrist extensors, pattern generator operator and abduction 4/5 right elbow flexion and extension, 3+ wrist extension, 3+ pattern generator operator 5-/5 left hip flexors, knee extensors, ankle DF and EHL, plantar flexion 2/5 right hip flexion, 2/5knee extensors, ankle DF and EHL, trace DF mild TTP bilateral lumbar paraspinals, worse with extension Tone 1/4 right hip flexor and adductor tone SKIN: bilateral anterior calf petechial rash improving ASSESSMENT:73-year-old M with past medical history of Aortic Valve replacement, Afib, multiple CVAs who presents status post NSTEMI complicated by stroke PLAN: 1. 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 Neuro: s/p recent bilateral embolic strokes in setting of newly diagnosed Afib and AVR, continue statin, Coumadin, rate and rhythm control -increased Fluoxetine from 10mg to 20mg for motor recovery and mood 3. Cardiac: pmh aVR with mechanical valve, not followed by junior linux administrator, will refer to Dr. Alfaro- on Coumadin, diltiazem, amiodarone, and beta [facility] family medicine consulted, monitor daily INRs goal 2.5-3.5 -f/u with [facility] junior linux administrator in early July for recent catheterization 4. GI: recent hx of diarrhea, Loperamide prn loose stool, monitor for signs of infection-stable, continue bowel meds for constipation- patient with resolving tenesmus likely from recent colitis, s/p lactulose-bisacodyl suppository and fleet enema 06-27-18- improving -continue Anusol suppository BID prn for tenesmus-resolved 5. GI ppx: Protonix 6. : admission UA and Ucx positive for E Faecalis, s/p 10 day course of Levofloxacin- voiding well 7. Resp: cough persisting, CXR 06-20-18 negative for acute pathology, breathing treatments ordered and Guaifenesin, afebrile , no leukocytosis, likely upper airway congestion,will d/c guaifenasin and duonebs as resolved 8. Heme: petechial rash with drop in platelets, likely drug induced from recent Levofloxacin which can cause drug-induced thrombocytopenia, will monitor and replete as needed, monitor for signs of bleeding- platelet count and petechia improved 9. DVT ppx: on warfarin, dopplers negative for DVT 10. Pain: patient reports >20 years of low back pain, worse with extension, i mproved with flexion- suspect spinal stenosis and facet arthropathy, will trial Cymbalta 30mg daily, tizanidine, and patient encouraged to take percocet prn 8. Dispo: will extend stay beyond 07-28-17 as has medical needs, is still making strides in therapy, and would like to return home, progressing towards goals Allergies Coded Allergies: No Known Allergies (Unverified , 07/15/16) Vital Signs Vital Signs Date Time Temp Pulse Resp B/P (MAP) Pulse Ox O2 Delivery O2 Flow Rate FiO2 07/19/18 14:15 97.9 71 19 157/87 (110) 96 Room Air Laboratory Data Labs 24H Laboratory Tests 2 07/19/18 06:29: Prothrombin Time 21.5H, Prothromb Time International Ratio 1.83 Current Medications Current Medications Current Medications Acetaminophen (Tylenol Tab) 650 mg Q6HP PRN PO PAIN / FEVER Last administered on 07/18/18 16:41; Start 06/19/18 at 16:45 Albuterol/ Ipratropium (Duoneb (Ipr 0.5mg/Alb 2.5mg)) 3 ml RBID NEB Last administered on 07/06/18 07:33; Start 06/22/18 at 20:00; Stop 07/06/18 at 16:32; Status DC Amiodarone HCl (Pacerone, Cordarone) 200 mg DAILY PO Last administered on 07/19/18 09:54; Start 06/20/18 at 09:00 Bacitracin (Bacitracin Oint) 1 dose BID TOP Last administered on 07/17/18 08:54; Start 07/05/18 at 21:00 Bisacodyl (Dulcolax Suppository) 10 mg DAILYPRN PRN [place] CONSTIPATION Last administered on 07/17/18at 02:38; Start 06/26/18 at 11:00 Bisacodyl (Dulcolax Suppository) 10 mg DAILYPRN PRN GA CONSTIPATION; Start 06/26/18 at 20:30; Stop 06/26/18 at 20:30; Status DC Diltiazem HCl (Cardizem Cd) 240 mg DAILY PO Last administered on 07/19/18 09:54; Start 06/20/18 at 09:00 Docusate Sodium (Colace) 100 mg BID PO Last administered on 07/19/18 09:54; Start 06/26/18 at 21:00 Duloxetine HCl (Cymbalta) 30 mg DAILY PO Last administered on 12/26/18at 09:54; Start 07/13/18 at 16:15 Fluoxetine HCl (PROzac) 10 mg DAILY PO Last administered on 06/21/18at 07:50; Start 06/20/18 at 09:00; Stop 06/21/18 at 16:29; Status DC Fluoxetine HCl (PROzac) 20 mg DAILY PO Last administered on 07/19/18at 09:54; Start 06/22/18 at 09:00 Gabapentin (Neurontin) 100 mg TID PO Last administered on 07/19/18at 16:12; Start 07/14/18 at 16:00 Guaifenesin (Mucinex Tab Er) 600 mg BID PO Last administered on 07/06/18at 08:41; Start 06/22/18 at 09:00; Stop 07/06/18 at 16:32; Status DC Home Med (Med Rec Complete!) ASDIRECTED XX ; Start 06/19/18 at 20:30; Stop 06/19/18 at 20:30; Status DC Hydrocortisone Acetate (Anusol Hc Supp) 25 mg BID GA Last administered on 06/30/18at 20:38; Start 06/27/18 at 21:00; Stop 07/05/18 at 12:36; Status DC Hydrocortisone Acetate (Anusol Hc Supp) 25 mg BID PRN GA DISCOMFORT; Start 07/05/18 at 12:45 Levofloxacin (Levaquin) 750 mg DAILY@06 PO Last administered on 07/02/18at 06:26; Start 06/23/18 at 06:00; Stop 07/02/18 at 06:01; Status DC Lidocaine (Lidoderm Patch) 1 patch DAILY TD Last administered on 07/17/18at 08:54; Start 07/12/18 at 09:00 Loperamide HCl (Imodium Liquid) 2 mg ASDIRECTED PRN PO DIARRHEA; Start 05/26 01/09 at 16:45 Metoprolol Succinate (TopROL XL) 50 mg DAILY PO Last administered on 06/27/18at 09:05; Start 06/20/18 at 09:00; Stop 06/27/18 at 14:42; Status DC Metoprolol Succinate (TopROL XL) 75 mg DAILY PO Last administered on 07/19/18at 09:54; Start 06/28/18 at 09:00 Miscellaneous (Unresolved Clarification Entry) SEE LABEL COMMENTS DAILY XX ; Start 07/03/18 at 09:00; Stop 07/03/18 at 13:17; Status DC Miscellaneous (Unresolved Clarification Entry) SEE LABEL COMMENTS DAILY XX ; Start 07/09/18 at 09:00; Stop 07/10/18 at 14:26; Status DC Miscellaneous (Unresolved Clarification Entry) SEE LABEL COMMENTS DAILY XX ; Start 07/16/18 at 09:00; Stop 07/17/18 at 12:06; Status DC Miscellaneous (Unresolved Clarification Entry) SEE LABEL COMMENTS DAILY XX ; Start 06/29/18 at 09:00; Stop 06/29/18 at 09:00; Status DC Non-Formulary Medication ( See Comment Field Below ) REMOVE LIDODERM PATCH DAILY@21 XX Last administered on 07/17/18at 20:48; Start 07/12/18 at 21:00 Oxycodone/ Acetaminophen (Percocet 5mg/ 325mg Tablet) 1 tab Q4HP PRN PO MILD/MODERATE PAIN (PS 1-7); Start 07/14/18 at 12:30 Pantoprazole Sodium (Protonix) 40 mg DAILY PO Last administered on 07/19/18at 09:54; Start 06/20/18 at 09:00 Pravastatin Sodium (Pravachol) 40 mg QHS PO Last administered on 07/18/18at 20:05; Start 06/19/18 at 21:00 Senna (Senokot) 1 tab QHSP PRN PO CONSTIPATION Last administered on 07/18/18at 20:04; Start 06/26/18 at 20:30 Sodium Biphosphate/ Sodium Phosphate (Fleet Enema) 1 ea DAILYPRN PRN GA CONSTIPATION Last administered on 07/10/18at 06:22; Start 06/27/18 at 14:45 Tizanidine HCl (Zanaflex) 4 mg Q6HP PRN PO SPASMS Last administered on 09/19/17at 09:55; Start 07/14/18 at 16:30 Warfarin Sodium (Coumadin) 1 mg DAILY@1700 PO Last administered on 07/04/18at 18:03; Start 07/03/18 at 17:00; Stop 07/05/18 at 11:30; Status DC Warfarin Sodium (Coumadin) 2 mg DAILY@17 PO Last administered on 07/12/18at 16:48; Start 07/10/18 at 17:00; Stop 07/13/18 at 13:31; Status DC Warfarin Sodium (Coumadin) 2 mg DAILY@17 PO Last administered on 07/18/18at 16:42; Start 07/17/18 at 17:00; Stop 07/19/18 at 08:24; Status DC Warfarin Sodium (Coumadin) 2.5 mg DAILY@17 PO Last administered on 07/13/18at 16:53; Start 07/13/18 at 17:00; Stop 07/14/18 at 10:20; Status DC Warfarin Sodium (Coumadin) 2.5 mg DAILY@1700 PO Last administered on 07/04/18at 18:03; Start 07/03/18 at 17:00; Stop 07/05/18 at 11:30; Status DC Warfarin Sodium (Coumadin) 3 mg DAILY@17 PO Last administered on 07/19/18at 16:13; Start 07/19/18 at 17:00 Warfarin Sodium (Coumadin) 3 mg DAILY@17 PO Last administered on 06/27/18at 16:19; Start 06/27/18 at 17:00; Stop 06/28/18 at 10:50; Status DC Warfarin Sodium (Coumadin) 3 mg DAILY@17 PO Last administered on 07/02/18at 16:58; Start 06/29/18 at 17:00; Stop 07/03/18 at 12:26; Status DC Warfarin Sodium (Coumadin) 3.5 mg DAILY@17 PO ; Start 07/03/18 at 17:00; Status UNV Warfarin Sodium (Coumadin) 4 mg DAILY@17 PO Last administered on 07/06/18at 16:39; Start 07/05/18 at 17:00; Stop 07/07/18 at 11:16; Status DC Warfarin Sodium (Coumadin) 4 mg DAILY@17 PO Last administered on 07/13/18at 16:53; Start 07/13/18 at 17:00; Stop 07/14/18 at 10:20; Status DC Warfarin Sodium (Coumadin) 5 mg DAILY@17 PO Last administered on 07/09/18at 17:34; Start 07/07/18 at 17:00; Stop 07/10/18 at 10:38; Status DC Warfarin Sodium (Coumadin) 5 mg DAILY@17 PO Last administered on 07/12/18at 16:48; Start 07/10/18 at 17:00; Stop 07/13/18 at 13:31; Status DC Warfarin Sodium (Coumadin) 5 mg DAILY@17 PO Last administered on 06/25/18at 17:03; Start 06/25/18 at 17:00; Stop 06/26/18 at 10:58; Status DC Zolpidem Tartrate (Ambien) 5 mg QHS PO Last administered on 07/09/18at 21:50; Start 06/20/18 at 21:00; Stop 07/10/18 at 13:17; Status DC Zolpidem Tartrate (Ambien) 5 mg QHSP PRN PO INSOMNIA Last administered on 07/11/18at 21:20; Start 07/10/18 at 14:15 JAC LUNA MD Jul 19, 2018 16:48
[2018-07-19] MEDS ORDERED: WARFARIN SOD 3 MG TAB PO SCH (17:00)
[2018-07-19 20:00] VITALS: BP 144/78
[2018-07-19] MEDS: PRAVASTATIN 20 MG TAB PO SCH (20:51)
[2018-07-19] MEDS: SENNA 8.6 MG TAB (SENOKOT) PO PRN (20:51)
[2018-07-19] MEDS: **NOTE PATIENT COMMENT** MISC XX SCH (20:52)
[2018-07-20 06:00] VITALS: BP 142/79
[2018-07-20 07:19] LABS: INR 1.68; PROTHROMBIN TIME 20.1 SECONDS (12.1-14.4)
[2018-07-20] MEDS: DULoxetine 30 MG CAP (CYMBALTA) PO SCH (09:31)
[2018-07-20] MEDS: FLUoxetine 20 MG CAP PO SCH (09:31)
[2018-07-20] MEDS: DOCUSATE SODIUM 100 MG CAP PO SCH ×2 (09:31→20:06)
[2018-07-20] MEDS: GABAPENTIN 100 MG CAP PO SCH ×2 (09:31→20:07)
[2018-07-20] MEDS: AMIODARONE 200 MG TAB (PACERONE) PO SCH (09:31)
[2018-07-20] MEDS: PANTOPRAZOLE 40MG TAB (PROTONIX) PO SCH (09:31)
[2018-07-20] MEDS: LIDOCAINE 5% (LIDODERM) PATCH TD SCH (09:32)
[2018-07-20] MEDS: BACITRACIN OINT 30GM TOP SCH ×2 (09:32→20:07)
[2018-07-20] MEDS: METOPROLOL SUCC *XL* 25MG TAB (TopROL *XL*) PO SCH (12:45)
[2018-07-20 14:00] VITALS: BP 137/81
[2018-07-20] MEDS: BISACODYL 10 MG SUPP PR PRN (15:03)
--- NOTE | 2018-07-20 16:33 | IPNPDOC ---
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 REVIEW OF SYSTEMS: The following is a completed review of systems and has been reviewed. Review of systems otherwise unremarkable. PAIN: +Low back pain EYES: Negative EARS, NOSE, & THROAT: dysphagia resolved CARDIOVASCULAR: +AVR and Afib, recent NSTEMI PULMONARY: Negative. Denies shortness of breath no cough GASTROINTESTINAL: + diarrhea and constipation improving, +tenesmus-improving GENITOURINARY: no retention or dysuria MUSCULOSKELETAL: right LE weakness NEUROLOGICAL: right sided hemiparesis HEMATOLOGICAL: on Coumadin SKIN: intact, petechial rash on bilateral anterior shins PSYCHIATRIC: Unremarkable All other review of systems found to be negative. PHYSICAL EXAMINATION: VITAL SIGNS: Please see below. GENERAL: Pleasant and cooperative. No acute distress. HEENT: PERRL. Extraocular movements intact. Clear conjunctiva, left sided facial droop CARDIOVASCULAR: Regular rate and rhythm. No murmurs, rubs, or gallops LUNGS: Mostly clear to auscultation bilaterally. No wheezes, however , +cough, transmitted upper airway sounds ABDOMEN:Soft, nontender, nondistended. Positive bowel sounds. Normal active bowel sounds NEUROLOGICAL: Alert and oriented times three. Cranial nerves II through XII grossly intact with eyebrow sparing left facial droop, Sensation grossly intact in all 4 limbs EXTREMITIES: 5/5 strength left elbow flexors/extensors, wrist extensors, aircraft engine dismantler and abduction 4/5 right elbow flexion and extension, 3+ wrist extension, 3+ aircraft engine dismantler 5-/5 left hip flexors, knee extensors, ankle DF and EHL, plantar flexion 3/5 right hip flexion, 2+/5knee extensors, ankle DF and EHL, trace DF mild TTP bilateral lumbar paraspinals, worse with extension Tone 1/4 right hip flexor and adductor tone SKIN: bilateral anterior calf petechial rash improving ASSESSMENT:73-year-old M with past medical history of Aortic Valve replacement, Afib, multiple CVAs who presents status post NSTEMI complicated by stroke PLAN: 1. 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, [employer] assess for DME, MBS upgrade to regular diet and thins -continue e-stim to right hip flexors, able to propel his own leg now, ambulating 30 feet with PRW -will work on becoming Mod-I for stand-pivot transfers to toilet as soon as possible- improving -home eval completed, will discuss with family possible minor alterations for the bathroom, possible repeat Home eval 2. Neuro: s/p recent bilateral embolic strokes in setting of newly diagnosed Afib and AVR, continue statin, Coumadin, rate and rhythm control -increased Fluoxetine from 10mg to 20mg for motor recovery and mood 3. Cardiac: pmh aVR with mechanical valve, not followed by religious studies professor, will refer to Dr. Alfaro- on Coumadin, diltiazem, amiodarone, and beta [facility] consulted, monitor daily INRs goal 2.5-3.5 -f/u with [facility] religious studies professor in early July for recent catheterization 4. GI: recent hx of diarrhea, Loperamide prn loose stool, monitor for signs of infection-stable, continue bowel meds for constipation- patient with resolving tenesmus likely from recent colitis, s/p lactulose-bisacodyl suppository and fleet enema 06-27-18- improving -continue Anusol suppository BID prn for tenesmus-resolved 5. GI ppx: Protonix 6. : admission UA and Ucx positive for E Faecalis, s/p 10 day course of Levofloxacin- voiding well 7. Resp: cough persisting, CXR 06-20-18 negative for acute pathology, breathing treatments ordered and Guaifenesin, afebrile , no leukocytosis, likely upper airway congestion,will d/c guaifenasin and duonebs as resolved 8. Heme: petechial rash with drop in platelets, likely drug induced from recent Levofloxacin which can cause drug-induced thrombocytopenia, will monitor and replete as needed, monitor for signs of bleeding- platelet count and petechia improved 9. DVT ppx: on warfarin, dopplers negative for DVT 10. Pain: patient reports >20 years of low back pain, worse with extension, imp roved with flexion- suspect spinal stenosis and facet arthropathy, will trial Cymbalta 30mg daily, tizanidine, and patient encouraged to take percocet prn 8. Dispo: 07-28-17 as has medical needs, is still making strides in therapy, and would like to return home, progressing towards goals, Home eval scheduled for 1-2-18 Allergies Coded Allergies: No Known Allergies (Unverified , 07/15/16) Vital Signs Vital Signs Date Time Temp Pulse Resp B/P (MAP) Pulse Ox O2 Delivery O2 Flow Rate FiO2 07/20/18 14:00 98.6 80 18 137/81 (99) 95 Room Air Laboratory Data Labs 24H Laboratory Tests 2 07/20/18 06:45: Prothrombin Time 20.1H, Prothromb Time International Ratio 1.68 Current Medications Current Medications Current Medications Acetaminophen (Tylenol Tab) 650 mg Q6HP PRN PO PAIN / FEVER Last administered on 07/18/18 16:41; Start 06/19/18 at 16:45 Albuterol/ Ipratropium (Duoneb (Ipr 0.5mg/Alb 2.5mg)) 3 ml RBID NEB Last administered on 07/06/18 07:33; Start 06/22/18 at 20:00; Stop 07/06/18 at 16:32; Status DC Amiodarone HCl (Pacerone, Cordarone) 200 mg DAILY PO Last administered on 07/20/18at 09:31; Start 06/20/18 at 09:00 Bacitracin (Bacitracin Oint) 1 dose BID TOP Last administered on 07/17/18at 08:54; Start 07/05/18 at 21:00 Bisacodyl (Dulcolax Suppository) 10 mg DAILYPRN PRN [place] CONSTIPATION Last administered on 07/20/18at 15:03; Start 06/26/18 at 11:00 Bisacodyl (Dulcolax Suppository) 10 mg DAILYPRN PRN [place] CONSTIPATION; Start 06/26/18 at 20:30; Stop 06/26/18 at 20:30; Status DC Diltiazem HCl (Cardizem Cd) 240 mg DAILY PO Last administered on 07/20/18 09:31; Start 06/20/18 at 09:00 Docusate Sodium (Colace) 100 mg BID PO Last administered on 07/20/18 09:31; Start 06/26/18 at 21:00 Duloxetine HCl (Cymbalta) 30 mg DAILY PO Last administered on 07/20/18at 09:31; Start 07/13/18 at 16:15 Fluoxetine HCl (PROzac) 10 mg DAILY PO Last administered on 06/21/18at 07:50; Start 06/20/18 at 09:00; Stop 06/21/18 at 16:29; Status DC Fluoxetine HCl (PROzac) 20 mg DAILY PO Last administered on 07/20/18at 09:31; Start 06/22/18 at 09:00 Gabapentin (Neurontin) 100 mg TID PO Last administered on 07/20/18at 09:31; Start 07/14/18 at 16:00 Guaifenesin (Mucinex Tab Er) 600 mg BID PO Last administered on 07/06/18at 08:41; Start 06/22/18 at 09:00; Stop 07/06/18 at 16:32; Status DC Home Med (Med Rec Complete!) ASDIRECTED XX ; Start 06/19/18 at 20:30; Stop 06/19/18 at 20:30; Status DC Hydrocortisone Acetate (Anusol Hc Supp) 25 mg BID [place] Last administered on 06/30/18at 20:38; Start 06/27/18 at 21:00; Stop 07/05/18 at 12:36; Status DC Hydrocortisone Acetate (Anusol Hc Supp) 25 mg BID PRN [place] DISCOMFORT; Start 07/05/18 at 12:45 Levofloxacin (Levaquin) 750 mg DAILY@06 PO Last administered on 07/02/18at 06:26; Start 06/23/18 at 06:00; Stop 07/02/18 at 06:01; Status DC Lidocaine (Lidoderm Patch) 1 patch DAILY TD Last administered on 07/17/18at 08:54; Start 07/12/18 at 09:00 Loperamide HCl (Imodium Liquid) 2 mg ASDIRECTED PRN PO DIARRHEA; Start 06/19/18 at 16:45 Metoprolol Succinate (TopROL XL) 50 mg DAILY PO Last administered on 06/27/18at 09:05; Start 06/20/18 at 09:00; Stop 06/27/18 at 14:42; Status DC Metoprolol Succinate (TopROL XL) 75 mg DAILY PO Last administered on 07/20/18at 12:45; Start 06/28/18 at 09:00 Miscellaneous (Unresolved Clarification Entry) SEE LABEL COMMENTS DAILY XX ; Start 07/03/18 at 09:00; Stop 07/03/18 at 13:17; Status DC Miscellaneous (Unresolved Clarification Entry) SEE LABEL COMMENTS DAILY XX ; Start 07/09/18 at 09:00; Stop 07/10/18 at 14:26; Status DC Miscellaneous (Unresolved Clarification Entry) SEE LABEL COMMENTS DAILY XX ; Start 07/16/18 at 09:00; Stop 07/17/18 at 12:06; Status DC Miscellaneous (Unresolved Clarification Entry) SEE LABEL COMMENTS DAILY XX ; Start 06/29/18 at 09:00; Stop 06/29/18 at 09:00; Status DC Non-Formulary Medication ( See Comment Field Below ) REMOVE LIDODERM PATCH DAILY@21 XX Last administered on 07/17/18at 20:48; Start 07/12/18 at 21:00 Oxycodone/ Acetaminophen (Percocet 5mg/ 325mg Tablet) 1 tab Q4HP PRN PO MILD/MODERATE PAIN (PS 1-7); Start 07/14/18 at 12:30 Pantoprazole Sodium (Protonix) 40 mg DAILY PO Last administered on 07/20/18at 09:31; Start 06/20/18 at 09:00 Pravastatin Sodium (Pravachol) 40 mg QHS PO Last administered on 07/19/18at 20:51; Start 06/19/18 at 21:00 Senna (Senokot) 1 tab QHSP PRN PO CONSTIPATION Last administered on 07/19/18at 20:51; Start 06/26/18 at 20:30 Sodium Biphosphate/ Sodium Phosphate (Fleet Enema) 1 ea DAILYPRN PRN [place] CONSTIPATION Last administered on 07/10/18at 06:22; Start 06/27/18 at 14:45 Tizanidine HCl (Zanaflex) 4 mg Q6HP PRN PO SPASMS Last administered on 07/19/18at 20:51; Start 07/14/18 at 16:30 Warfarin Sodium (Coumadin) 1 mg DAILY@1700 PO Last administered on 07/04/18at 18:03; Start 07/03/18 at 17:00; Stop 07/05/18 at 11:30; Status DC Warfarin Sodium (Coumadin) 2 mg DAILY@17 PO Last administered on 07/12/18at 16:48; Start 07/10/18 at 17:00; Stop 07/13/18 at 13:31; Status DC Warfarin Sodium (Coumadin) 2 mg DAILY@17 PO Last administered on 07/18/18at 16:42; Start 07/17/18 at 17:00; Stop 07/19/18 at 08:24; Status DC Warfarin Sodium (Coumadin) 2.5 mg DAILY@17 PO Last administered on 07/13/18at 16:53; Start 07/13/18 at 17:00; Stop 07/14/18 at 10:20; Status DC Warfarin Sodium (Coumadin) 2.5 mg DAILY@1700 PO Last administered on 07/04/18at 18:03; Start 07/03/18 at 17:00; Stop 07/05/18 at 11:30; Status DC Warfarin Sodium (Coumadin) 3 mg DAILY@17 PO Last administered on 07/19/18at 16:13; Start 07/19/18 at 17:00; Status Future hold Warfarin Sodium (Coumadin) 3 mg DAILY@17 PO Last administered on 06/27/18at 16:19; Start 06/27/18 at 17:00; Stop 06/28/18 at 10:50; Status DC Warfarin Sodium (Coumadin) 3 mg DAILY@17 PO Last administered on 07/02/18at 16:58; Start 06/29/18 at 17:00; Stop 07/03/18 at 12:26; Status DC Warfarin Sodium (Coumadin) 3.5 mg DAILY@17 PO ; Start 07/03/18 at 17:00; Sta s UNV Warfarin Sodium (Coumadin) 4 mg DAILY@17 PO Last administered on 07/06/18at 16:39; Start 07/05/18 at 17:00; Stop 07/07/18 at 11:16; Status DC Warfarin Sodium (Coumadin) 4 mg DAILY@17 PO Last administered on 07/13/18at 16:53; Start 07/13/18 at 17:00; Stop 07/14/18 at 10:20; Status DC Warfarin Sodium (Coumadin) 5 mg DAILY@17 PO Last administered on 07/09/18at 17:34; Start 07/07/18 at 17:00; Stop 07/10/18 at 10:38; Status DC Warfarin Sodium (Coumadin) 5 mg DAILY@17 PO Last administered on 07/12/18at 16:48; Start 07/10/18 at 17:00; Stop 07/13/18 at 13:31; Status DC Warfarin Sodium (Coumadin) 5 mg DAILY@17 PO Last administered on 06/25/18at 17:03; Start 06/25/18 at 17:00; Stop 06/26/18 at 10:58; Status DC Zolpidem Tartrate (Ambien) 5 mg QHS PO Last administered on 07/09/18at 21:50; Start 06/20/18 at 21:00; Stop 07/10/18 at 13:17; Status DC Zolpidem Tartrate (Ambien) 5 mg QHSP PRN PO INSOMNIA Last administered on 07/11/18at 21:20; Start 07/10/18 at 14:15 JAC LUNA MD Jul 20, 2018 16:33
[2018-07-20] MEDS ORDERED: WARFARIN SOD 5 MG TAB PO ONE (17:00)
[2018-07-20 20:00] VITALS: BP 155/79
[2018-07-20] MEDS: PRAVASTATIN 20 MG TAB PO SCH (20:07)
[2018-07-20] MEDS: tiZANidine 4 MG TAB PO PRN (20:07)
[2018-07-20] MEDS: **NOTE PATIENT COMMENT** MISC XX SCH (20:07)
[2018-07-21 06:00] VITALS: BP 138/76
[2018-07-21 06:58] LABS: INR 1.9; PROTHROMBIN TIME 22.1 SECONDS (12.1-14.4)
[2018-07-21] MEDS: LIDOCAINE 5% (LIDODERM) PATCH TD SCH (09:00)
[2018-07-21] MEDS: BACITRACIN OINT 30GM TOP SCH ×2 (09:00→21:00)
[2018-07-21] MEDS: DOCUSATE SODIUM 100 MG CAP PO SCH ×2 (09:01→21:37)
[2018-07-21] MEDS: AMIODARONE 200 MG TAB (PACERONE) PO SCH (09:01)
[2018-07-21] MEDS: METOPROLOL SUCC *XL* 25MG TAB (TopROL *XL*) PO SCH (09:01)
[2018-07-21] MEDS: GABAPENTIN 100 MG CAP PO SCH ×2 (09:01→17:03)
[2018-07-21] MEDS: tiZANidine 4 MG TAB PO PRN (09:01)
[2018-07-21] MEDS: DULoxetine 30 MG CAP (CYMBALTA) PO SCH (09:01)
[2018-07-21] MEDS: ACETAMINOPHEN TAB 650MG DOSE (2X325MG) PO PRN (09:02)
[2018-07-21] MEDS: FLUoxetine 20 MG CAP PO SCH (09:02)
[2018-07-21] MEDS: PANTOPRAZOLE 40MG TAB (PROTONIX) PO SCH (09:03)
[2018-07-21 14:00] VITALS: BP 112/61
[2018-07-21] MEDS: WARFARIN SOD 5 MG TAB PO SCH (17:03)
[2018-07-21] MEDS: WARFARIN SOD 1 MG TAB PO SCH (17:03)
--- NOTE | 2018-07-21 17:24 | IPNPDOC ---
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 REVIEW OF SYSTEMS: The following is a completed review of systems and has been reviewed. Review of systems otherwise unremarkable. PAIN: +Low back pain EYES: Negative EARS, NOSE, & THROAT: dysphagia resolved CARDIOVASCULAR: +AVR and Afib, recent NSTEMI PULMONARY: Negative. Denies shortness of breath no cough GASTROINTESTINAL: + diarrhea and constipation improving, +tenesmus-improving GENITOURINARY: no retention or dysuria MUSCULOSKELETAL: right LE weakness NEUROLOGICAL: right sided hemiparesis HEMATOLOGICAL: on Coumadin SKIN: intact, petechial rash on bilateral anterior shins PSYCHIATRIC: Unremarkable All other review of systems found to be negative. PHYSICAL EXAMINATION: VITAL SIGNS: Please see below. GENERAL: Pleasant and cooperative. No acute distress. HEENT: PERRL. Extraocular movements intact. Clear conjunctiva, left sided facial droop CARDIOVASCULAR: Regular rate and rhythm. No murmurs, rubs, or gallops LUNGS: Mostly clear to auscultation bilaterally. No wheezes, however , +cough, transmitted upper airway sounds ABDOMEN:Soft, nontender, nondistended. Positive bowel sounds. Normal active bowel sounds NEUROLOGICAL: Alert and oriented times three. Cranial nerves II through XII grossly intact with eyebrow sparing left facial droop, Sensation grossly intact in all 4 limbs EXTREMITIES: 5/5 strength left elbow flexors/extensors, wrist extensors, dietitian teacher and abduction 4/5 right elbow flexion and extension, 3+ wrist extension, 3+ dietitian teacher 5-/5 left hip flexors, knee extensors, ankle DF and EHL, plantar flexion 3/5 right hip flexion, 2+/5knee extensors, ankle DF and EHL, trace DF mild TTP bilateral lumbar paraspinals, worse with extension Tone 1/4 right hip flexor and adductor tone SKIN: bilateral anterior calf petechial rash improving ASSESSMENT:73-year-old M with past medical history of Aortic Valve replacement, Afib, multiple CVAs who presents status post NSTEMI complicated by stroke PLAN: 1. 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 Neuro: s/p recent bilateral embolic strokes in setting of newly diagnosed Kae b and AVR, continue statin, Coumadin, rate and rhythm control -increased Fluoxetine from 10mg to 20mg for motor recovery and mood 3. Cardiac: pmh aVR with mechanical valve, not followed by sort manager, will refer to Dr. Alfaro- on Coumadin, diltiazem, amiodarone, and beta [facility] family medicine consulted, monitor daily INRs goal 2.5-3.5 -f/u with Health system sort manager in early July for recent catheterization 4. GI: recent hx of diarrhea, Loperamide prn loose stool, monitor for signs of infection-stable, continue bowel meds for constipation- patient with resolving tenesmus likely from recent colitis, s/p lactulose-bisacodyl suppository and fleet enema 06-27-18- improving -continue Anusol suppository BID prn for tenesmus-resolved 5. GI ppx: Protonix 6. : admission UA and Ucx positive for E Faecalis, s/p 10 day course of Levofloxacin- voiding well 7. Resp: cough persisting, CXR 06-20-18 negative for acute pathology, breathing treatments ordered and Guaifenesin, afebrile , no leukocytosis, likely upper airway congestion,will d/c guaifenasin and duonebs as resolved 8. Heme: petechial rash with drop in platelets, likely drug induced from recent Levofloxacin which can cause drug-induced thrombocytopenia, will monitor and replete as needed, monitor for signs of bleeding- platelet count and petechia improved 9. DVT ppx: on warfarin, dopplers negative for DVT 10. 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 Dispo: 07-28-17 as has medical needs, is still making strides in therapy, and would like to return home, progressing towards goals, Home eval scheduled for 07-26-17 Allergies Coded Allergies: No Known Allergies (Unverified , 07/15/16) Vital Signs Vital Signs Date Time Temp Pulse Resp B/P (MAP) Pulse Ox O2 Delivery O2 Flow Rate FiO2 07/21/18 14:00 97.6 73 19 112/61 (78) 94 Room Air Laboratory Data Labs 24H Laboratory Tests 2 07/21/18 06:21: Prothrombin Time 22.1H, Prothromb Time International Ratio 1.90 Current Medications Current Medications Current Medications Acetaminophen (Tylenol Tab) 650 mg Q6HP PRN PO PAIN / FEVER Last administered on 07/21/18 09:02; Start 06/19/18 at 16:45 Albuterol/ Ipratropium (Duoneb (Ipr 0.5mg/Alb 2.5mg)) 3 ml RBID NEB Last administered on 07/06/18 07:33; Start 06/22/18 at 20:00; Stop 07/06/18 at 16:32; Status DC Amiodarone HCl (Pacerone, Cordarone) 200 mg DAILY PO Last administered on 07/21/18 09:01; Start 06/20/18 at 09:00 Bacitracin (Bacitracin Oint) 1 dose BID TOP Last administered on 07/17/18at 08:54; Start 07/05/18 at 21:00 Bisacodyl (Dulcolax Suppository) 10 mg DAILYPRN PRN [place] CONSTIPATION Last administered on 07/20/18at 15:03; Start 06/26/18 at 11:00 Bisacodyl (Dulcolax Suppository) 10 mg DAILYPRN PRN [place] CONSTIPATION; Start 06/26/18 at 20:30; Stop 06/26/18 at 20:30; Status DC Diltiazem HCl (Cardizem Cd) 240 mg DAILY PO Last administered on 07/21/18 09:00; Start 06/20/18 at 09:00 Docusate Sodium (Colace) 100 mg BID PO Last administered on 07/21/18 09:01; Start 06/26/18 at 21:00 Duloxetine HCl (Cymbalta) 30 mg DAILY PO Last administered on 12/27/18at 09:31; Start 07/13/18 at 16:15; Stop 07/20/18 at 16:34; Status DC Duloxetine HCl (Cymbalta) 60 mg DAILY PO Last administered on 07/21/18at 09:01; Start 07/21/18 at 09:00 Fluoxetine HCl (PROzac) 10 mg DAILY PO Last administered on 06/21/18at 07:50; Start 06/20/18 at 09:00; Stop 06/21/18 at 16:29; Status DC Fluoxetine HCl (PROzac) 20 mg DAILY PO Last administered on 07/21/18at 09:02; Start 06/22/18 at 09:00 Gabapentin (Neurontin) 100 mg TID PO Last administered on 07/20/18at 09:31; Start 07/14/18 at 16:00; Stop 07/20/18 at 16:34; Status DC Gabapentin (Neurontin) 200 mg TID PO Last administered on 07/21/18at 17:03; Start 07/20/18 at 21:00 Guaifenesin (Mucinex Tab Er) 600 mg BID PO Last administered on 07/06/18at 08:41; Start 06/22/18 at 09:00; Stop 07/06/18 at 16:32; Status DC Home Med (Med Rec Complete!) ASDIRECTED XX ; Start 06/19/18 at 20:30; Stop 06/19/18 at 20:30; Status DC Hydrocortisone Acetate (Anusol Hc Supp) 25 mg BID [place] Last administered on 06/30/18at 20:38; Start 06/27/18 at 21:00; Stop 07/05/18 at 12:36; Status DC Hydrocortisone Acetate (Anusol Hc Supp) 25 mg BID PRN [place] DISCOMFORT; Start 07/05/18 at 12:45 Levofloxacin (Levaquin) 750 mg DAILY@06 PO Last administered on 07/02/18at 06:26; Start 06/23/18 at 06:00; Stop 07/02/18 at 06:01; Status DC Lidocaine (Lidoderm Patch) 1 patch DAILY TD Last administered on 07/17/18at 08:54; Start 07/12/18 at 09:00 Loperamide HCl (Imodium Liquid) 2 mg ASDIRECTED PRN PO DIARRHEA; Start 05/26 01/09 at 16:45 Metoprolol Succinate (TopROL XL) 50 mg DAILY PO Last administered on 06/27/18at 09:05; Start 06/20/18 at 09:00; Stop 06/27/18 at 14:42; Status DC Metoprolol Succinate (TopROL XL) 75 mg DAILY PO Last administered on 07/21/18at 09:01; Start 06/28/18 at 09:00 Miscellaneous (Unresolved Clarification Entry) SEE LABEL COMMENTS DAILY XX ; Start 07/03/18 at 09:00; Stop 07/03/18 at 13:17; Status DC Miscellaneous (Unresolved Clarification Entry) SEE LABEL COMMENTS DAILY XX ; Start 07/09/18 at 09:00; Stop 07/10/18 at 14:26; Status DC Miscellaneous (Unresolved Clarification Entry) SEE LABEL COMMENTS DAILY XX ; Start 07/16/18 at 09:00; Stop 07/17/18 at 12:06; Status DC Miscellaneous (Unresolved Clarification Entry) SEE LABEL COMMENTS DAILY XX Last administered on 07/21/18at 09:00; Start 07/21/18 at 09:00; Stop 07/21/18 at 12:34; Status DC Miscellaneous (Unresolved Clarification Entry) SEE LABEL COMMENTS DAILY XX ; Start 06/29/18 at 09:00; Stop 06/29/18 at 09:00; Status DC Non-Formulary Medication ( See Comment Field Below ) REMOVE LIDODERM PATCH DAILY@21 XX Last administered on 07/17/18at 20:48; Start 07/12/18 at 21:00 Oxycodone/ Acetaminophen (Percocet 5mg/ 325mg Tablet) 1 tab Q4HP PRN PO MILD/MODERATE PAIN (PS 1-7); Start 07/14/18 at 12:30 Pantoprazole Sodium (Protonix) 40 mg DAILY PO Last administered on 07/21/18at 09:03; Start 06/20/18 at 09:00 Pravastatin Sodium (Pravachol) 40 mg QHS PO Last administered on 07/20/18at 20:07; Start 06/19/18 at 21:00 Senna (Senokot) 1 tab QHSP PRN PO CONSTIPATION Last administered on 07/19/18at 20:51; Start 06/26/18 at 20:30 Sodium Biphosphate/ Sodium Phosphate (Fleet Enema) 1 ea DAILYPRN PRN [place] CONSTIPATION Last administered on 07/10/18at 06:22; Start 06/27/18 at 14:45 Tizanidine HCl (Zanaflex) 4 mg Q6HP PRN PO SPASMS Last administered on 07/21/18at 09:01; Start 07/14/18 at 16:30 Warfarin Sodium (Coumadin) 0.5 mg DAILY@17 PO Last administered on 07/21/18at 17:03; Start 07/21/18 at 17:00 Warfarin Sodium (Coumadin) 1 mg DAILY@1700 PO Last administered on 07/04/18 18:03; Start 07/03/18 at 17:00; Stop 07/05/18 at 11:30; Status DC Warfarin Sodium (Coumadin) 2 mg DAILY@17 PO Last administered on 07/12/18at 16:48; Start 07/10/18 at 17:00; Stop 07/13/18 at 13:31; Status DC Warfarin Sodium (Coumadin) 2 mg DAILY@17 PO Last administered on 07/18/18at 16:42; Start 07/17/18 at 17:00; Stop 07/19/18 at 08:24; Status DC Warfarin Sodium (Coumadin) 2.5 mg DAILY@17 PO Last administered on 07/13/18at 16:53; Start 07/13/18 at 17:00; Stop 07/14/18 at 10:20; Status DC Warfarin Sodium (Coumadin) 2.5 mg DAILY@1700 PO Last administered on 07/04/18at 18:03; Start 07/03/18 at 17:00; Stop 07/05/18 at 11:30; Status DC Warfarin Sodium (Coumadin) 3 mg DAILY@17 PO Last administered on 07/19/18at 16:13; Start 07/19/18 at 17:00; Stop 07/21/18 at 12:34; Status DC Warfarin Sodium (Coumadin) 3 mg DAILY@17 PO Last administered on 06/27/18at 16:19; Start 06/27/18 at 17:00; Stop 06/28/18 at 10:50; Status DC Warfarin Sodium (Coumadin) 3 mg DAILY@17 PO Last administered on 07/02/18at 16:58; Start 06/29/18 at 17:00; Stop 07/03/18 at 12:26; Status DC Warfarin Sodium (Coumadin) 3.5 mg DAILY@17 PO ; Start 07/03/18 at 17:00; Status UNV Warfarin Sodium (Coumadin) 4 mg DAILY@17 PO Last administered on 07/06/18at 16:39; Start 07/05/18 at 17:00; Stop 07/07/18 at 11:16; Status DC Warfarin Sodium (Coumadin) 4 mg DAILY@17 PO Last administered on 07/13/18at 16:53; Start 07/13/18 at 17:00; Stop 07/14/18 at 10:20; Status DC Warfarin Sodium (Coumadin) 5 mg DAILY@17 PO Last administered on 07/09/18at 17:34; Start 07/07/18 at 17:00; Stop 07/10/18 at 10:38; Status DC Warfarin Sodium (Coumadin) 5 mg DAILY@17 PO Last administered on 07/12/18at 16:48; Start 07/10/18 at 17:00; Stop 07/13/18 at 13:31; Status DC Warfarin Sodium (Coumadin) 5 mg DAILY@17 PO Last administered on 06/25/18at 17:03; Start 06/25/18 at 17:00; Stop 06/26/18 at 10:58; Status DC Warfarin Sodium (Coumadin) 5 mg DAILY@17 PO Last administered on 07/21/18at 17:03; Start 07/21/18 at 17:00 Zolpidem Tartrate (Ambien) 5 mg QHS PO Last administered on 07/09/18at 21:50; Start 06/20/18 at 21:00; Stop 07/10/18 at 13:17; Status DC Zolpidem Tartrate (Ambien) 5 mg QHSP PRN PO INSOMNIA Last administered on 07/11/18at 21:20; Start 07/10/18 at 14:15 JAC LUNA MD Jul 21, 2018 17:24
[2018-07-21 20:00] VITALS: BP 142/74
[2018-07-21] MEDS: **NOTE PATIENT COMMENT** MISC XX SCH (21:00)
[2018-07-21] MEDS: PRAVASTATIN 20 MG TAB PO SCH (21:37)
[2018-07-21] MEDS: BACLOFEN 5MG PER 1/2 TABLET PO SCH (21:37)
[2018-07-21] MEDS: GABAPENTIN 300 MG CAP PO SCH (21:39)
[2018-07-22 06:00] VITALS: BP 129/77
[2018-07-22 07:05] LABS: INR 2.19; PROTHROMBIN TIME 24.7 SECONDS (12.1-14.4)
[2018-07-22] MEDS: BACLOFEN 5MG PER 1/2 TABLET PO SCH ×2 (08:24→21:16)
[2018-07-22] MEDS: LIDOCAINE 5% (LIDODERM) PATCH TD SCH (08:25)
[2018-07-22] MEDS: AMIODARONE 200 MG TAB (PACERONE) PO SCH (08:25)
[2018-07-22] MEDS: GABAPENTIN 300 MG CAP PO SCH ×3 (08:25→21:16)
[2018-07-22] MEDS: FLUoxetine 20 MG CAP PO SCH (08:25)
[2018-07-22] MEDS: DOCUSATE SODIUM 100 MG CAP PO SCH ×2 (08:25→21:16)
[2018-07-22] MEDS: PANTOPRAZOLE 40MG TAB (PROTONIX) PO SCH (08:25)
[2018-07-22] MEDS: DULoxetine 30 MG CAP (CYMBALTA) PO SCH (08:25)
[2018-07-22] MEDS: BACITRACIN OINT 30GM TOP SCH ×2 (08:26→21:00)
[2018-07-22 10:33] VITALS: BP 134/80
[2018-07-22] MEDS: METOPROLOL SUCC *XL* 25MG TAB (TopROL *XL*) PO SCH (10:34)
[2018-07-22 14:00] VITALS: BP 133/80
[2018-07-22] MEDS: WARFARIN SOD 5 MG TAB PO SCH (16:24)
[2018-07-22] MEDS: WARFARIN SOD 1 MG TAB PO SCH (16:24)
[2018-07-22 20:00] VITALS: BP 153/82
[2018-07-22] MEDS: **NOTE PATIENT COMMENT** MISC XX SCH (21:00)
[2018-07-22] MEDS: PRAVASTATIN 20 MG TAB PO SCH (21:16)
[2018-07-23 06:00] VITALS: BP 151/78
[2018-07-23 06:49] LABS: INR 2.59; PROTHROMBIN TIME 28.3 SECONDS (12.1-14.4)
[2018-07-23] MEDS: GABAPENTIN 300 MG CAP PO SCH ×3 (08:47→20:39)
[2018-07-23] MEDS: DULoxetine 30 MG CAP (CYMBALTA) PO SCH (08:47)
[2018-07-23] MEDS: BACLOFEN 5MG PER 1/2 TABLET PO SCH ×2 (08:47→20:39)
[2018-07-23] MEDS: AMIODARONE 200 MG TAB (PACERONE) PO SCH (08:47)
[2018-07-23] MEDS: FLUoxetine 20 MG CAP PO SCH (08:47)
[2018-07-23] MEDS: PANTOPRAZOLE 40MG TAB (PROTONIX) PO SCH (08:47)
[2018-07-23] MEDS: DOCUSATE SODIUM 100 MG CAP PO SCH ×2 (08:47→20:39)
[2018-07-23] MEDS: LIDOCAINE 5% (LIDODERM) PATCH TD SCH (08:48)
[2018-07-23] MEDS: BACITRACIN OINT 30GM TOP SCH ×2 (08:48→20:35)
[2018-07-23 09:30] VITALS: BP 140/77
[2018-07-23] MEDS: METOPROLOL SUCC *XL* 25MG TAB (TopROL *XL*) PO SCH (09:31)
[2018-07-23 14:00] VITALS: BP 127/71
[2018-07-23] MEDS: WARFARIN SOD 5 MG TAB PO SCH (16:58)
[2018-07-23] MEDS: WARFARIN SOD 1 MG TAB PO SCH (16:58)
[2018-07-23] MEDS: SENNA 8.6 MG TAB (SENOKOT) PO PRN (17:00)
[2018-07-23 20:00] VITALS: BP 132/78
[2018-07-23] MEDS: **NOTE PATIENT COMMENT** MISC XX SCH (20:35)
[2018-07-23] MEDS: PRAVASTATIN 20 MG TAB PO SCH (20:39)
[2018-07-24] MEDS: FLEET ENEMA PR PRN (01:00)
[2018-07-24 06:00] VITALS: BP 126/80
[2018-07-24 06:15] LABS: BASO % 0.2 % (0.0-1.0); EOS # 0.2 10^3/uL (0.0-0.50); EOS % 2.3 % (0.0-3.0); HEMATOCRIT 43.4 % (42.0-52.0); HEMOGLOBIN 13.7 g/dl (13.5-17.5); LYMPH # 0.5 10^3/uL (1.5-4.5); MEAN CORPUSCULAR HEMOGLOBIN 26.8 pg (27.0-33.0); MEAN CORPUSCULAR HGB CONC 31.6 g/dl (32.0-36.5); MEAN CORPUSCULAR VOLUME 84.8 fl (80.0-96.0); MONO # 0.7 10^3/uL (0.0-0.8); MONO % 6.2 % (0.0-5.0); NEUTROPHILS % 86.1 % (36.0-66.0); PLATELET COUNT, AUTOMATED 204 10^3/uL (150-450); RED BLOOD COUNT 5.12 10^6/uL (4.30-6.10); WHITE BLOOD COUNT 10.5 10^3/uL (4.0-10.0)
[2018-07-24 06:35] LABS: INR 2.74; PROTHROMBIN TIME 29.6 SECONDS (12.1-14.4)
[2018-07-24 06:44] LABS: BLOOD UREA NITROGEN 16 MG/DL (7-18); CALCIUM LEVEL 8.9 MG/DL (8.8-10.2); CARBON DIOXIDE LEVEL 28 MEQ/L (21-32); CHLORIDE LEVEL 103 MEQ/L (98-107); CREATININE FOR GFR 0.96 MG/DL (0.70-1.30); GLOMERULAR FILTRATION RATE > 60.0 (>42); GLUCOSE, FASTING 99 MG/DL (70-100); POTASSIUM SERUM 4.1 MEQ/L (3.5-5.1); SODIUM LEVEL 138 MEQ/L (136-145)
[2018-07-24] MEDS: AMIODARONE 200 MG TAB (PACERONE) PO SCH (09:44)
[2018-07-24] MEDS: BACLOFEN 5MG PER 1/2 TABLET PO SCH ×2 (09:44→22:15)
[2018-07-24] MEDS: DULoxetine 30 MG CAP (CYMBALTA) PO SCH (09:44)
[2018-07-24] MEDS: PANTOPRAZOLE 40MG TAB (PROTONIX) PO SCH (09:44)
[2018-07-24] MEDS: DOCUSATE SODIUM 100 MG CAP PO SCH ×2 (09:45→21:00)
[2018-07-24] MEDS: FLUoxetine 20 MG CAP PO SCH (09:45)
[2018-07-24] MEDS: GABAPENTIN 300 MG CAP PO SCH ×3 (09:45→22:14)
[2018-07-24] MEDS: BACITRACIN OINT 30GM TOP SCH ×2 (09:46→21:00)
[2018-07-24] MEDS: LIDOCAINE 5% (LIDODERM) PATCH TD SCH (09:46)
[2018-07-24] MEDS: METOPROLOL SUCC *XL* 25MG TAB (TopROL *XL*) PO SCH (11:36)
[2018-07-24 14:00] VITALS: BP 127/79
[2018-07-24] MEDS: WARFARIN SOD 5 MG TAB PO SCH (16:28)
[2018-07-24] MEDS: WARFARIN SOD 1 MG TAB PO SCH (16:29)
[2018-07-24 20:00] VITALS: BP 123/72
[2018-07-24] MEDS: **NOTE PATIENT COMMENT** MISC XX SCH (21:00)
[2018-07-24] MEDS: PRAVASTATIN 20 MG TAB PO SCH (22:15)
[2018-07-25 06:00] VITALS: BP 123/68
[2018-07-25 07:23] LABS: INR 3.83; PROTHROMBIN TIME 38.6 SECONDS (12.1-14.4)
[2018-07-25] MEDS: GABAPENTIN 300 MG CAP PO SCH ×3 (08:16→20:36)
[2018-07-25] MEDS: PANTOPRAZOLE 40MG TAB (PROTONIX) PO SCH (08:16)
[2018-07-25] MEDS: FLUoxetine 20 MG CAP PO SCH (08:16)
[2018-07-25] MEDS: BACLOFEN 5MG PER 1/2 TABLET PO SCH ×2 (08:16→20:36)
[2018-07-25] MEDS: AMIODARONE 200 MG TAB (PACERONE) PO SCH (08:16)
[2018-07-25] MEDS: DULoxetine 30 MG CAP (CYMBALTA) PO SCH (08:16)
[2018-07-25] MEDS: DOCUSATE SODIUM 100 MG CAP PO SCH ×2 (08:17→20:37)
[2018-07-25] MEDS: BACITRACIN OINT 30GM TOP SCH ×2 (08:17→21:00)
[2018-07-25] MEDS: LIDOCAINE 5% (LIDODERM) PATCH TD SCH (08:17)
[2018-07-25 10:18] VITALS: BP 134/80
[2018-07-25] MEDS: METOPROLOL SUCC *XL* 25MG TAB (TopROL *XL*) PO SCH (10:19)
[2018-07-25 14:00] VITALS: BP 137/81
--- NOTE | 2018-07-25 18:45 | IPNPDOC ---
PM&R Progress Note DATE OF SERVICE: Jul 24, 2018 Pediatric Oncology Nurse Progress Note Subjective; Patient reports his back pain is better with increased dose of Cymbalta and addiion of low dose baclofen. He denies nausea now, but did have an episode of vomiting yesterday with loose stools. REVIEW OF SYSTEMS: The following is a completed review of systems and has been reviewed. Review of systems otherwise unremarkable. PAIN: +Low back pain EYES: Negative EARS, NOSE, & THROAT: dysphagia resolved CARDIOVASCULAR: +AVR and Afib, recent NSTEMI PULMONARY: Negative. Denies shortness of breath no cough GASTROINTESTINAL: + diarrhea and constipation improving, +tenesmus-improving GENITOURINARY: no retention or dysuria MUSCULOSKELETAL: right LE weakness NEUROLOGICAL: right sided hemiparesis HEMATOLOGICAL: on Coumadin SKIN: intact, petechial rash on bilateral anterior shins PSYCHIATRIC: Unremarkable All other review of systems found to be negative. PHYSICAL EXAMINATION: VITAL SIGNS: Please see below. GENERAL: Pleasant and cooperative. No acute distress. HEENT: PERRL. Extraocular movements intact. Clear conjunctiva, left sided facial droop CARDIOVASCULAR: Regular rate and rhythm. No murmurs, rubs, or gallops LUNGS: Mostly clear to auscultation bilaterally. No wheezes, however , +cough, transmitted upper airway sounds ABDOMEN:Soft, nontender, nondistended. Positive bowel sounds. Normal active bowel sounds NEUROLOGICAL: Alert and oriented times three. Cranial nerves II through XII grossly intact with eyebrow sparing left facial droop, Sensation grossly intact in all 4 limbs EXTREMITIES: 5/5 strength left elbow flexors/extensors, wrist extensors, bander operator and abduction 4/5 right elbow flexion and extension, 3+ wrist extension, 3+ bander operator 5-/5 left hip flexors, knee extensors, ankle DF and EHL, plantar flexion 3/5 right hip flexion, 2+/5knee extensors, ankle DF and EHL, trace DF mild TTP bilateral lumbar paraspinals, worse with extension Tone 1/4 right hip flexor and adductor tone SKIN: bilateral anterior calf petechial rash improving ASSESSMENT:73-year-old M with past medical history of Aortic Valve replacement, Afib, multiple CVAs who presents status post NSTEMI complicated by stroke PLAN: 1. 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, [employer] assess for DME, MBS upgrade to regular diet and thins -continue e-stim to right hip flexors, able to propel his own leg now, ambulating 30 feet with PRW -will work on becoming Mod-I for stand-pivot transfers to toilet as soon as possible- improving -home eval completed, will discuss with family possible minor alterations for the bathroom, possible repeat Home eval 2. Neuro: s/p recent bilateral embolic strokes in setting of newly diagnosed Afib and AVR, continue statin, Coumadin, rate and rhythm control -increased Fluoxetine from 10mg to 20mg for motor recovery and mood 3. Cardiac: pmh aVR with mechanical valve, not followed by aviation neuropsychologist, will refer to Dr. Alfaro- on Coumadin, diltiazem, amiodarone, and beta [facility] consulted, monitor daily INRs goal 2.5-3.5 -f/u with [facility] aviation neuropsychologist in early July for recent catheterization 4. GI: recent hx of diarrhea, Loperamide prn loose stool, monitor for signs of infection-stable, continue bowel meds for constipation- patient with resolving tenesmus likely from recent colitis, s/p lactulose-bisacodyl suppository and fleet enema prn- improving -continue Anusol suppository BID prn for tenesmus-resolved -epiosde of vomiting yesterday and loose stools with mild leukocytosis, will obtain repeat labs, patient reports he believes it was from the fleet enema 5. GI ppx: Protonix 6. : admission UA and Ucx positive for E Faecalis, s/p 10 day course of Levofloxacin- voiding well 7. Resp: cough persisting, CXR 06-20-18 negative for acute pathology, breathing treatments ordered and Guaifenesin, afebrile , no leukocytosis, likely upper airway congestion,will d/c guaifenasin and duonebs as resolved 8. Heme: petechial rash with drop in platelets, likely drug induced from recent Levofloxacin which can cause drug-induced thrombocytopenia, will monitor and replete as needed, monitor for signs of bleeding- platelet count and petechia improved 9. DVT ppx: on warfarin, dopplers negative for DVT 10. 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 Dispo: 07-28-17 as has medical needs, is still making strides in therapy, and would like to return home, progressing towards goals, Home eval scheduled for 07-26-17 Allergies Coded Allergies: No Known Allergies (Unverified , 07/15/16) Vital Signs Vital Signs Date Time Temp Pulse Resp B/P (MAP) Pulse Ox O2 Delivery O2 Flow Rate FiO2 07/25/18 14:00 98.3 77 18 137/81 (99) 95 Room Air Laboratory Data Labs 24H Laboratory Tests 2 07/25/18 06:27: Prothrombin Time 38.6H, Prothromb Time International Ratio 3.83 07/25/18 07:04: Urine Color YELLOW, Urine Appearance CLEAR, Urine pH 5.0, Urine Specific [place] 1.024, Urine Protein NEGATIVE, Urine Glucose (UA) NEGATIVE, Urine Ketones NEGATIVE, Urine Blood NEGATIVE, Urine Nitrite NEGATIVE, Urine Bilirubin NEGATIVE , Urine Urobilinogen 0.2, Urine Leukocyte Esterase NEGATIVE, Urine WBC (Auto) 6H, Urine RBC (Auto) 21H, Urine Hyaline Casts (Auto) 0, Urine Bacteria (Auto) NEGATIVE, Urine Squamous Epithelial Cells 0, Urine Calcium Oxalate Cryst (Auto) SMALL, Urine Mucus (Auto) SMALL, Urine Sperm (Auto) Current Medications Current Medications Current Medications Acetaminophen (Tylenol Tab) 650 mg Q6HP PRN PO PAIN / FEVER Last administered on 07/21/18at 09:02; Start 06/19/18 at 16:45 Albuterol/ Ipratropium (Duoneb (Ipr 0.5mg/Alb 2.5mg)) 3 ml RBID NEB Last administered on 07/06/18at 07:33; Start 06/22/18 at 20:00; Stop 07/06/18 at 16:32; Status DC Amiodarone HCl (Pacerone, Cordarone) 200 mg DAILY PO Last administered on 07/25/18at 08:16; Start 06/20/18 at 09:00 Bacitracin (Bacitracin Oint) 1 dose BID TOP Last administered on 07/23/18at 08:48; Start 07/05/18 at 21:00 Baclofen (Lioresal) 5 mg BID PO Last administered on 07/25/18 08:16; Start 07/21/18 at 21:00 Bisacodyl (Dulcolax Suppository) 10 mg DAILYPRN PRN [place] CONSTIPATION Last administered on 07/20/18at 15:03; Start 06/26/18 at 11:00 Bisacodyl (Dulcolax Suppository) 10 mg DAILYPRN PRN [place] CONSTIPATION; Start 06/26/18 at 20:30; Stop 06/26/18 at 20:30; Status DC Diltiazem HCl (Cardizem Cd) 240 mg DAILY PO Last administered on 07/25/18 08:17; Start 06/20/18 at 09:00 Docusate Sodium (Colace) 100 mg BID PO Last administered on 07/23/18at 20:39; Start 06/26/18 at 21:00 Duloxetine HCl (Cymbalta) 30 mg DAILY PO Last administered on 07/20/18at 09:31; Start 07/13/18 at 16:15; Stop 07/20/18 at 16:34; Status DC Duloxetine HCl (Cymbalta) 60 mg DAILY PO Last administered on 07/25/18 08:16; Start 07/21/18 at 09:00 Fluoxetine HCl (PROzac) 10 mg DAILY PO Last administered on 06/21/18at 07:50; Start 06/20/18 at 09:00; Stop 06/21/18 at 16:29; Status DC Fluoxetine HCl (PROzac) 20 mg DAILY PO Last administered on 07/25/18 08:16; Start 06/22/18 at 09:00 Gabapentin (Neurontin) 100 mg TID PO Last administered on 07/20/18at 09:31; Start 07/14/18 at 16:00; Stop 07/20/18 at 16:34; Status DC Gabapentin (Neurontin) 200 mg TID PO Last administered on 07/21/18at 17:03; Start 07/20/18 at 21:00; Stop 07/21/18 at 17:23; Status DC Gabapentin (Neurontin) 300 mg TID PO Last administered on 07/25/18at 15:36; Start 07/21/18 at 21:00 Guaifenesin (Mucinex Tab Er) 600 mg BID PO Last administered on 07/06/18at 08:41; Start 06/22/18 at 09:00; Stop 07/06/18 at 16:32; Status DC Home Med (Med Rec Complete!) ASDIRECTED XX ; Start 06/19/18 at 20:30; Stop 06/19/18 at 20:30; Status DC Hydrocortisone Acetate (Anusol Hc Supp) 25 mg BID [place] Last administered on at 20:38; Start 06/27/18 at 21:00; Stop 07/05/18 at 12:36; Status DC Hydrocortisone Acetate (Anusol Hc Supp) 25 mg BID PRN [place] DISCOMFORT; Start 07/05/18 at 12:45 Levofloxacin (Levaquin) 750 mg DAILY@06 PO Last administered on 07/02/18at 06:26; Start 06/23/18 at 06:00; Stop 07/02/18 at 06:01; Status DC Lidocaine (Lidoderm Patch) 1 patch DAILY TD Last administered on 07/17/18at 08:54; Start 07/12/18 at 09:00 Loperamide HCl (Imodium Liquid) 2 mg ASDIRECTED PRN PO DIARRHEA; Start 06/19/18 at 16:45 Metoprolol Succinate (TopROL XL) 50 mg DAILY PO Last administered on 06/27/18at 09:05; Start 06/20/18 at 09:00; Stop 06/27/18 at 14:42; Status DC Metoprolol Succinate (TopROL XL) 75 mg DAILY PO Last administered on 07/25/18at 10:19; Start 06/28/18 at 09:00 Miscellaneous (Unresolved Clarification Entry) SEE LABEL COMMENTS DAILY XX ; Start 07/25/18 at 09:00 Miscellaneous (Unresolved Clarification Entry) SEE LABEL COMMENTS DAILY XX ; Start 07/03/18 at 09:00; Stop 07/03/18 at 13:17; Status DC Miscellaneous (Unresolved Clarification Entry) SEE LABEL COMMENTS DAILY XX ; Start 07/09/18 at 09:00; Stop 07/10/18 at 14:26; Status DC Miscellaneous (Unresolved Clarification Entry) SEE LABEL COMMENTS DAILY XX ; Start 07/16/18 at 09:00; Stop 07/17/18 at 12:06; Status DC Miscellaneous (Unresolved Clarification Entry) SEE LABEL COMMENTS DAILY XX Last administered on 07/21/18at 09:00; Start 07/21/18 at 09:00; Stop 07/21/18 at 12:34; Status DC Miscellaneous (Unresolved Clarification Entry) SEE LABEL COMMENTS DAILY XX ; Start 07/23/18 at 09:00; Stop 07/24/18 at 07:16; Status DC Miscellaneous (Unresolved Clarification Entry) SEE LABEL COMMENTS DAILY XX ; Start 06/29/18 at 09:00; Stop 06/29/18 at 09:00; Status DC Non-Formulary Medication ( See Comment Field Below ) REMOVE LIDODERM PATCH DAILY@21 XX Last administered on 07/17/18at 20:48; Start 07/12/18 at 21:00 Oxycodone/ Acetaminophen (Percocet 5mg/ 325mg Tablet) 1 tab Q4HP PRN PO MILD/MODERATE PAIN (PS 1-7); Start 07/14/18 at 12:30 Pantoprazole Sodium (Protonix) 40 mg DAILY PO Last administered on 07/25/18at 08:16; Start 06/20/18 at 09:00 Pravastatin Sodium (Pravachol) 40 mg QHS PO Last administered on 07/24/18at 22:15; Start 06/19/18 at 21:00 Senna (Senokot) 1 tab QHSP PRN PO CONSTIPATION Last administered on 07/23/18at 17:00; Start 06/26/18 at 20:30 Sodium Biphosphate/ Sodium Phosphate (Fleet Enema) 1 ea DAILYPRN PRN [place] CONST IPATION Last administered on 07/24/18at 01:00; Start 06/27/18 at 14:45 Tizanidine HCl (Zanaflex) 4 mg Q6HP PRN PO SPASMS Last administered on 07/21/18at 09:01; Start 07/14/18 at 16:30; Stop 07/21/18 at 17:23; Status DC Warfarin Sodium (Coumadin) 0.5 mg DAILY@17 PO Last administered on 07/24/18at 16:29; Start 07/21/18 at 17:00; Stop 07/25/18 at 10:02; Status DC Warfarin Sodium (Coumadin) 1 mg DAILY@1700 PO Last administered on 07/04/18at 18:03; Start 07/03/18 at 17:00; Stop 07/05/18 at 11:30; Status DC Warfarin Sodium (Coumadin) 2 mg DAILY@17 PO Last administered on 07/12/18at 16:48; Start 07/10/18 at 17:00; Stop 07/13/18 at 13:31; Status DC Warfarin Sodium (Coumadin) 2 mg DAILY@17 PO Last administered on 07/18/18at 16:42; Start 07/17/18 at 17:00; Stop 07/19/18 at 08:24; Status DC Warfarin Sodium (Coumadin) 2.5 mg DAILY@17 PO Last administered on 07/13/18at 16:53; Start 07/13/18 at 17:00; Stop 07/14/18 at 10:20; Status DC Warfarin Sodium (Coumadin) 2.5 mg DAILY@1700 PO Last administered on 07/04/18at 18:03; Start 07/03/18 at 17:00; Stop 07/05/18 at 11:30; Status DC Warfarin Sodium (Coumadin) 3 mg DAILY@17 PO Last administered on 07/19/18at 16:13; Start 07/19/18 at 17:00; Stop 07/21/18 at 12:34; Status DC Warfarin Sodium (Coumadin) 3 mg DAILY@17 PO Last administered on 06/27/18at 16:19; Start 06/27/18 at 17:00; Stop 06/28/18 at 10:50; Status DC Warfarin Sodium (Coumadin) 3 mg DAILY@17 PO Last administered on 07/02/18at 16:58; Start 06/29/18 at 17:00; Stop 07/03/18 at 12:26; Status DC Warfarin Sodium (Coumadin) 3.5 mg DAILY@17 PO ; Start 07/03/18 at 17:00; Status UNV Warfarin Sodium (Coumadin) 4 mg DAILY@17 PO ; Start 07/26/18 at 17:00 Warfarin Sodium (Coumadin) 4 mg DAILY@17 PO Last administered on 07/06/18at 16:39; Start 07/05/18 at 17:00; Stop 07/07/18 at 11:16; Status DC Warfarin Sodium (Coumadin) 4 mg DAILY@17 PO Last administered on 07/13/18at 16 :53; Start 07/13/18 at 17:00; Stop 07/14/18 at 10:20; Status DC Warfarin Sodium (Coumadin) 5 mg DAILY@17 PO Last administered on 07/09/18at 17:34; Start 07/07/18 at 17:00; Stop 07/10/18 at 10:38; Status DC Warfarin Sodium (Coumadin) 5 mg DAILY@17 PO Last administered on 07/12/18at 16:48; Start 07/10/18 at 17:00; Stop 07/13/18 at 13:31; Status DC Warfarin Sodium (Coumadin) 5 mg DAILY@17 PO Last administered on 06/25/18at 17:03; Start 06/25/18 at 17:00; Stop 06/26/18 at 10:58; Status DC Warfarin Sodium (Coumadin) 5 mg DAILY@17 PO Last administered on 07/24/18at 16:28; Start 07/21/18 at 17:00; Stop 07/25/18 at 10:02; Status DC Zolpidem Tartrate (Ambien) 5 mg QHS PO Last administered on 07/09/18at 21:50; Start 06/20/18 at 21:00; Stop 07/10/18 at 13:17; Status DC Zolpidem Tartrate (Ambien) 5 mg QHSP PRN PO INSOMNIA Last administered on 07/11/18at 21:20; Start 07/10/18 at 14:15 JAC LUNA MD Jul 25, 2018 18:45
[2018-07-25 20:00] VITALS: BP 140/81
[2018-07-25] MEDS: PRAVASTATIN 20 MG TAB PO SCH (20:36)
[2018-07-25] MEDS: **NOTE PATIENT COMMENT** MISC XX SCH (21:00)
[2018-07-26 06:00] VITALS: BP 125/73
[2018-07-26 06:29] LABS: BASO % 0.4 % (0.0-1.0); EOS # 0.2 10^3/uL (0.0-0.50); EOS % 3.2 % (0.0-3.0); HEMATOCRIT 35.8 % (42.0-52.0); HEMOGLOBIN 11.5 g/dl (13.5-17.5); LYMPH # 0.6 10^3/uL (1.5-4.5); MEAN CORPUSCULAR HGB CONC 32.1 g/dl (32.0-36.5); MONO # 0.6 10^3/uL (0.0-0.8); NEUTROPHILS # 3.8 10^3/uL (1.8-7.7); PLATELET COUNT, AUTOMATED 177 10^3/uL (150-450); RED BLOOD COUNT 4.26 10^6/uL (4.30-6.10); WHITE BLOOD COUNT 5.3 10^3/uL (4.0-10.0)
[2018-07-26 06:53] LABS: INR 4.03; PROTHROMBIN TIME 40.2 SECONDS (12.1-14.4)
[2018-07-26 07:02] LABS: BLOOD UREA NITROGEN 19 MG/DL (7-18); CALCIUM LEVEL 8.1 MG/DL (8.8-10.2); CARBON DIOXIDE LEVEL 28 MEQ/L (21-32); CHLORIDE LEVEL 103 MEQ/L (98-107); CREATININE FOR GFR 0.95 MG/DL (0.70-1.30); GLOMERULAR FILTRATION RATE > 60.0 (>42); GLUCOSE, FASTING 88 MG/DL (70-100); POTASSIUM SERUM 3.9 MEQ/L (3.5-5.1); SODIUM LEVEL 138 MEQ/L (136-145)
[2018-07-26] MEDS: AMIODARONE 200 MG TAB (PACERONE) PO SCH (08:41)
[2018-07-26] MEDS: METOPROLOL SUCC *XL* 25MG TAB (TopROL *XL*) PO SCH (08:41)
[2018-07-26] MEDS: GABAPENTIN 300 MG CAP PO SCH ×3 (08:41→20:25)
[2018-07-26] MEDS: BACLOFEN 5MG PER 1/2 TABLET PO SCH ×2 (08:41→20:25)
[2018-07-26] MEDS: PANTOPRAZOLE 40MG TAB (PROTONIX) PO SCH (08:42)
[2018-07-26] MEDS: FLUoxetine 20 MG CAP PO SCH (08:42)
[2018-07-26] MEDS: DOCUSATE SODIUM 100 MG CAP PO SCH (08:42)
[2018-07-26] MEDS: DULoxetine 30 MG CAP (CYMBALTA) PO SCH (08:42)
[2018-07-26] MEDS: LIDOCAINE 5% (LIDODERM) PATCH TD SCH (08:43)
[2018-07-26] MEDS: BACITRACIN OINT 30GM TOP SCH ×2 (08:43→20:25)
[2018-07-26] MEDS ORDERED: DOCUSATE SODIUM 100 MG CAP PO PRN (11:15)
[2018-07-26] MEDS ORDERED: BISACODYL 10 MG SUPP PR PRN (11:15)
[2018-07-26 14:12] VITALS: BP 137/76
[2018-07-26] MEDS ORDERED: WARFARIN SOD 4 MG TAB PO SCH (17:00)
[2018-07-26 20:00] VITALS: BP 129/72
[2018-07-26] MEDS: **NOTE PATIENT COMMENT** MISC XX SCH (20:25)
[2018-07-26] MEDS: PRAVASTATIN 20 MG TAB PO SCH (20:25)
[2018-07-27 06:00] VITALS: BP 113/59
[2018-07-27 06:43] LABS: BASO % 0.4 % (0.0-1.0); EOS # 0.2 10^3/uL (0.0-0.50); EOS % 3.7 % (0.0-3.0); HEMATOCRIT 35.5 % (42.0-52.0); HEMOGLOBIN 11.3 g/dl (13.5-17.5); LYMPH # 0.7 10^3/uL (1.5-4.5); LYMPH % 12.6 % (24.0-44.0); MEAN CORPUSCULAR HEMOGLOBIN 26.9 pg (27.0-33.0); MEAN CORPUSCULAR HGB CONC 31.8 g/dl (32.0-36.5); MEAN CORPUSCULAR VOLUME 84.5 fl (80.0-96.0); MONO # 0.6 10^3/uL (0.0-0.8); MONO % 12.4 % (0.0-5.0); NEUTROPHILS # 3.6 10^3/uL (1.8-7.7); NEUTROPHILS % 70.3 % (36.0-66.0); PLATELET COUNT, AUTOMATED 178 10^3/uL (150-450); WHITE BLOOD COUNT 5.2 10^3/uL (4.0-10.0)
[2018-07-27 06:52] LABS: INR 2.8; PROTHROMBIN TIME 30.1 SECONDS (12.1-14.4)
[2018-07-27] MEDS: LIDOCAINE 5% (LIDODERM) PATCH TD SCH ×2 (08:27→09:00)
[2018-07-27] MEDS: DULoxetine 30 MG CAP (CYMBALTA) PO SCH (08:27)
[2018-07-27] MEDS: PANTOPRAZOLE 40MG TAB (PROTONIX) PO SCH (08:27)
[2018-07-27] MEDS: GABAPENTIN 300 MG CAP PO SCH (08:27)
[2018-07-27] MEDS: AMIODARONE 200 MG TAB (PACERONE) PO SCH (08:27)
[2018-07-27] MEDS: FLUoxetine 20 MG CAP PO SCH (08:29)
[2018-07-27] MEDS: BACLOFEN 5MG PER 1/2 TABLET PO SCH ×2 (08:29→21:18)
[2018-07-27] MEDS: BACITRACIN OINT 30GM TOP SCH ×2 (08:30→21:00)
[2018-07-27] MEDS: METOPROLOL SUCC *XL* 25MG TAB (TopROL *XL*) PO SCH (12:15)
[2018-07-27 14:00] VITALS: BP 121/71
[2018-07-27] MEDS ORDERED: WARFARIN SOD 4 MG TAB PO SCH (17:00)
[2018-07-27 20:00] VITALS: BP 158/80
--- NOTE | 2018-07-27 20:18 | IPNPDOC ---
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 REVIEW OF SYSTEMS: The following is a completed review of systems and has been reviewed. Review of systems otherwise unremarkable. PAIN: +Low back pain EYES: Negative EARS, NOSE, & THROAT: dysphagia resolved CARDIOVASCULAR: +AVR and Afib, recent NSTEMI PULMONARY: Negative. Denies shortness of breath no cough GASTROINTESTINAL: + diarrhea and constipation improving, +tenesmus-improving GENITOURINARY: no retention or dysuria MUSCULOSKELETAL: right LE weakness NEUROLOGICAL: right sided hemiparesis HEMATOLOGICAL: on Coumadin SKIN: intact, petechial rash on bilateral anterior shins PSYCHIATRIC: Unremarkable All other review of systems found to be negative. PHYSICAL EXAMINATION: VITAL SIGNS: Please see below. GENERAL: Pleasant and cooperative. No acute distress. HEENT: PERRL. Extraocular movements intact. Clear conjunctiva, left sided facial droop CARDIOVASCULAR: Regular rate and rhythm. No murmurs, rubs, or gallops LUNGS: Mostly clear to auscultation bilaterally. No wheezes, however , +cough, transmitted upper airway sounds ABDOMEN:Soft, nontender, nondistended. Positive bowel sounds. Normal active bowel sounds NEUROLOGICAL: Alert and oriented times three. Cranial nerves II through XII grossly intact with eyebrow sparing left facial droop, Sensation grossly intact in all 4 limbs EXTREMITIES: 5/5 strength left elbow flexors/extensors, wrist extensors, dry janitor and abduction 4/5 right elbow flexion and extension, 3+ wrist extension, 3+ dry janitor 5-/5 left hip flexors, knee extensors, ankle DF and EHL, plantar flexion 3/5 right hip flexion, 2+/5knee extensors, ankle DF and EHL, trace DF mild TTP bilateral lumbar paraspinals, worse with extension Tone 1/4 right hip flexor and adductor tone SKIN: bilateral anterior calf petechial rash improving ASSESSMENT:73-year-old M with past medical history of Aortic Valve replacement, Afib, multiple CVAs who presents status post NSTEMI complicated by stroke PLAN: 1. 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 Neuro: s/p recent bilateral embolic strokes in setting of newly diagnosed Afib and AVR, continue statin, Coumadin, rate and rhythm control -increased Fluoxetine from 10mg to 20mg for motor recovery and mood 3. Cardiac: pmh aVR with mechanical valve, not followed by sql database administrator, will refer to Dr. Alfaro- on Coumadin, diltiazem, amiodarone, and beta [facility] consulted, monitor daily INRs goal 2.5-3.5 -f/u with [facility] sql database administrator in early July for recent catheterization 4. GI: recent hx of diarrhea, Loperamide prn loose stool, monitor for signs of infection-stable, continue bowel meds for constipation- patient with resolving tenesmus likely from recent colitis, s/p lactulose-bisacodyl suppository and fleet enema prn- improving -continue Anusol suppository BID prn for tenesmus-resolved -epiosde of vomiting yesterday and loose stools with mild leukocytosis, will obtain repeat labs, patient reports he believes it was from the fleet enema 5. GI ppx: Protonix 6. : admission UA and Ucx positive for E Faecalis, s/p 10 day course of Levofloxacin- voiding well 7. Resp: cough persisting, CXR 06-20-18 negative for acute pathology, breathing treatments ordered and Guaifenesin, afebrile , no leukocytosis, likely upper airway congestion,will d/c guaifenasin and duonebs as resolved 8. Heme: petechial rash with drop in platelets, likely drug induced from recent Levofloxacin which can cause drug-induced thrombocytopenia, will monitor and replete as needed, monitor for signs of bleeding- platelet count and petechia improved 9. DVT ppx: on warfarin, dopplers negative for DVT 10. 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 Dispo: 07-28-17 as has medical needs, is still making strides in therapy, and would like to return home, progressing towards goals, Home eval scheduled for 07-26-17 Allergies Coded Allergies: No Known Allergies (Unverified , 07/15/16) Vital Signs Vital Signs Date Time Temp Pulse Resp B/P (MAP) Pulse Ox O2 Delivery O2 Flow Rate FiO2 07/27/18 14:00 97.4 71 18 121/71 (88) 97 Room Air Laboratory Data CBC/BMP Laboratory Tests 07/27/18 06:27 Red Blood Count 4.20 L, Mean Corpuscular Volume 84.5, Mean Corpuscular Hemoglobin 26.9 L, Mean Corpuscular Hemoglobin Concent 31.8 L, Red Cell Distribution Width 15.0 H, Neutrophils (%) (Auto) 70.3 H, Lymphocytes (%) (Auto) 12.6 L, Monocytes (%) (Auto) 12.4 H, Eosinophils (%) (Auto) 3.7 H, Basophils (%) (Auto) 0.4, Neutrophils # (Auto) 3.6, Lymphocytes # (Auto) 0.7 L, Monocytes # (Auto) 0.6, Eosinophils # (Auto) 0.2, Basophils # (Auto) 0.0 Labs 24H Laboratory Tests 2 07/27/18 06:27: Immature Granulocyte % (Auto) 0.6, White Blood Count 5.2, Red Blood Count 4.20L, Hemoglobin 11.3L, Hematocrit 35.5L, Mean Corpuscular Volume 84.5, Mean Corpuscular Hemoglobin 26.9L, Mean Corpuscular Hemoglobin Concent 31.8L, Red Cell Distribution Width 15.0H, Platelet Count 178, Neutrophils (%) (Auto) 70.3H, Lymphocytes (%) (Auto) 12.6L, Monocytes (%) (Auto) 12.4H, Eosinophils (%) (Auto) 3.7H, Basophils (%) (Auto) 0.4, Neutrophils # (Auto) 3.6, Lymphocytes # (Auto) 0.7L, Monocytes # (Auto) 0.6, Eosinophils # (Auto) 0.2, Basophils # (Auto) 0.0, Nucleated Red Blood Cells % (auto) 0.0, Prothrombin Time 30.1H, Prothromb Time International Ratio 2.80 Current Medications Current Medications Current Medications Acetaminophen (Tylenol Tab) 650 mg Q6HP PRN PO PAIN / FEVER Last administered on 07/21/18at 09:02; Start 06/19/18 at 16:45 Albuterol/ Ipratropium (Duoneb (Ipr 0.5mg/Alb 2.5mg)) 3 ml RBID NEB Last administered on 07/06/18at 07:33; Start 06/22/18 at 20:00; Stop 07/06/18 at 16:32; Status DC Amiodarone HCl (Pacerone, Cordarone) 200 mg DAILY PO Last administered on 08:27; Start 06/20/18 at 09:00 Bacitracin (Bacitracin Oint) 1 dose BID TOP Last administered on 07/27/18 08:30; Start 07/05/18 at 21:00 Baclofen (Lioresal) 5 mg BID PO Last administered on 07/27/18 08:29; Start 07/21/18 at 21:00 Bisacodyl (Dulcolax Suppository) 10 mg DAILYPRN PRN NC CONSTIPATION; Start 07/26/18 at 11:15 Bisacodyl (Dulcolax Suppository) 10 mg DAILYPRN PRN NC CONSTIPATION Last administered on 07/20/18at 15:03; Start 06/26/18 at 11:00; Stop 07/26/18 at 10:59; Status DC Bisacodyl (Dulcolax Suppository) 10 mg DAILYPRN PRN NC CONSTIPATION; Start 06/26/18 at 20:30; Stop 06/26/18 at 20:30; Status DC Diltiazem HCl (Cardizem Cd) 240 mg DAILY PO Last administered on 07/27/18at 08:29; Start 06/20/18 at 09:00 Docusate Sodium (Colace) 100 mg BID PO Last administered on 07/23/18at 20:39; Start 06/26/18 at 21:00; Stop 07/26/18 at 11:03; Status DC Docusate Sodium (Colace) 100 mg BID PRN PO CONSTIPATION; Start 07/26/18 at 11:15 Duloxetine HCl (Cymbalta) 30 mg DAILY PO Last administered on 07/20/18at 09:31; Start 07/13/18 at 16:15; Stop 07/20/18 at 16:34; Status DC Duloxetine HCl (Cymbalta) 60 mg DAILY PO Last administered on 07/27/18at 08:27; Start 07/21/18 at 09:00 Fluoxetine HCl (PROzac) 10 mg DAILY PO Last administered on 06/21/18at 07:50; Start 06/20/18 at 09:00; Stop 06/21/18 at 16:29; Status DC Fluoxetine HCl (PROzac) 20 mg DAILY PO Last administered on 07/27/18at 08:29; Start 06/22/18 at 09:00 Gabapentin (Neurontin) 100 mg TID PO Last administered on 07/20/18at 09:31; Start 07/14/18 at 16:00; Stop 07/20/18 at 16:34; Status DC Gabapentin (Neurontin) 200 mg BID PO ; Start 07/27/18 at 21:00 Gabapentin (Neurontin) 200 mg TID PO Last administered on 07/21/18at 17:03; Start 07/20/18 at 21:00; Stop 07/21/18 at 17:23; Status DC Gabapentin (Neurontin) 300 mg TID PO Last administered on 07/27/18at 08:27; Start 07/21/18 at 21:00; Stop 07/27/18 at 10:23; Status DC Guaifenesin (Mucinex Tab Er) 600 mg BID PO Last administered on 07/06/18at 08 :41; Start 06/22/18 at 09:00; Stop 07/06/18 at 16:32; Status DC Home Med (Med Rec Complete!) ASDIRECTED XX ; Start 06/19/18 at 20:30; Stop 06/19/18 at 20:30; Status DC Hydrocortisone Acetate (Anusol Hc Supp) 25 mg BID NC Last administered on 06/30/18at 20:38; Start 06/27/18 at 21:00; Stop 07/05/18 at 12:36; Status DC Hydrocortisone Acetate (Anusol Hc Supp) 25 mg BID PRN NC DISCOMFORT; Start 07/05/18 at 12:45 Levofloxacin (Levaquin) 750 mg DAILY@06 PO Last administered on 07/02/18at 06 :26; Start 06/23/18 at 06:00; Stop 07/02/18 at 06:01; Status DC Lidocaine (Lidoderm Patch) 1 patch DAILY TD Last administered on 07/17/18at 08:54; Start 07/12/18 at 09:00 Loperamide HCl (Imodium Liquid) 2 mg ASDIRECTED PRN PO DIARRHEA; Start 06/19/18 at 16:45 Metoprolol Succinate (TopROL XL) 50 mg DAILY PO Last administered on 06/27/18at 09:05; Start 06/20/18 at 09:00; Stop 06/27/18 at 14:42; Status DC Metoprolol Succinate (TopROL XL) 75 mg DAILY PO Last administered on 07/27/18at 12:15; Start 06/28/18 at 09:00 Miscellaneous (Unresolved Clarification Entry) SEE LABEL COMMENTS DAILY XX ; Start 07/25/18 at 09:00; Stop 07/26/18 at 11:04; Status DC Miscellaneous (Unresolved Clarification Entry) SEE LABEL COMMENTS DAILY XX ; Start 07/26/18 at 09:00; Stop 07/26/18 at 15:04; Status DC Miscellaneous (Unresolved Clarification Entry) SEE LABEL COMMENTS DAILY XX ; Start 07/03/18 at 09:00; Stop 07/03/18 at 13:17; Status DC Miscellaneous (Unresolved Clarification Entry) SEE LABEL COMMENTS DAILY XX ; Start 07/09/18 at 09:00; Stop 07/10/18 at 14:26; Status DC Miscellaneous (Unresolved Clarification Entry) SEE LABEL COMMENTS DAILY XX ; Start 07/16/18 at 09:00; Stop 07/17/18 at 12:06; Status DC Miscellaneous (Unresolved Clarification Entry) SEE LABEL COMMENTS DAILY XX Last administered on 07/21/18at 09:00; Start 07/21/18 at 09:00; Stop 07/21/18 at 12:34; Status DC Miscellaneous (Unresolved Clarification Entry) SEE LABEL COMMENTS DAILY XX ; Start 07/23/18 at 09:00; Stop 07/24/18 at 07:16; Status DC Miscellaneous (Unresolved Clarification Entry) SEE LABEL COMMENTS DAILY XX ; Start 06/29/18 at 09:00; Stop 06/29/18 at 09:00; Status DC Non-Formulary Medication ( See Comment Field Below ) REMOVE LIDODERM PATCH DAILY@21 XX Last administered on 07/17/18at 20:48; Start 07/12/18 at 21:00 Oxycodone/ Acetaminophen (Percocet 5mg/ 325mg Tablet) 1 tab Q4HP PRN PO MILD/MO DERATE PAIN (PS 1-7); Start 07/14/18 at 12:30; Stop 07/26/18 at 15:04; Status DC Pantoprazole Sodium (Protonix) 40 mg DAILY PO Last administered on 07/27/18 08:27; Start 06/20/18 at 09:00 Pravastatin Sodium (Pravachol) 40 mg QHS PO Last administered on 07/26/18 20:25; Start 06/19/18 at 21:00 Senna (Senokot) 1 tab QHSP PRN PO CONSTIPATION Last administered on 07/23/18 17:00; Start 06/26/18 at 20:30 Sodium Biphosphate/ Sodium Phosphate (Fleet Enema) 1 ea DAILYPRN PRN NC CONSTIPATION Last administered on 07/24/18at 01:00; Start 06/27/18 at 14:45; Stop 07/26/18 at 15:04; Status DC Tizanidine HCl (Zanaflex) 4 mg Q6HP PRN PO SPASMS Last administered on 07/21/18at 09:01; Start 07/14/18 at 16:30; Stop 07/21/18 at 17:23; Status DC Warfarin Sodium (Coumadin) 0.5 mg DAILY@17 PO Last administered on 07/24/18at 16:29; Start 07/21/18 at 17:00; Stop 07/25/18 at 10:02; Status DC Warfarin Sodium (Coumadin) 1 mg DAILY@1700 PO Last administered on 07/04/18at 18:03; Start 07/03/18 at 17:00; Stop 07/05/18 at 11:30; Status DC Warfarin Sodium (Coumadin) 2 mg DAILY@17 PO Last administered on 07/12/18at 16:48; Start 07/10/18 at 17:00; Stop 07/13/18 at 13:31; Status DC Warfarin Sodium (Coumadin) 2 mg DAILY@17 PO Last administered on 07/18/18at 16:42; Start 07/17/18 at 17:00; Stop 07/19/18 at 08:24; Status DC Warfarin Sodium (Coumadin) 2.5 mg DAILY@17 PO Last administered on 07/13/18at 16:53; Start 07/13/18 at 17:00; Stop 07/14/18 at 10:20; Status DC Warfarin Sodium (Coumadin) 2.5 mg DAILY@1700 PO Last administered on 07/04/18at 18:03; Start 07/03/18 at 17:00; Stop 07/05/18 at 11:30; Status DC Warfarin Sodium (Coumadin) 3 mg DAILY@17 PO Last administered on 07/19/18at 16:13; Start 07/19/18 at 17:00; Stop 07/21/18 at 12:34; Status DC Warfarin Sodium (Coumadin) 3 mg DAILY@17 PO Last administered on 06/27/18at 16:19; Start 06/27/18 at 17:00; Stop 06/28/18 at 10:50; Status DC Warfarin Sodium (Coumadin) 3 mg DAILY@17 PO Last administered on 07/02/18at 16:58; Start 06/29/18 at 17:00; Stop 07/03/18 at 12:26; Status DC Warfarin Sodium (Coumadin) 3.5 mg DAILY@17 PO ; Start 07/03/18 at 17:00; Status UNV Warfarin Sodium (Coumadin) 4 mg DAILY@17 PO ; Start 07/26/18 at 17:00; Stop 07/26/18 at 17:00; Status DC Warfarin Sodium (Coumadin) 4 mg DAILY@17 PO Last administered on 07/06/18at 16:39; Start 07/05/18 at 17:00; Stop 07/07/18 at 11:16; Status DC Warfarin Sodium (Coumadin) 4 mg DAILY@17 PO Last administered on 07/13/18at 16:53; Start 07/13/18 at 17:00; Stop 07/14/18 at 10:20; Status DC Warfarin Sodium (Coumadin) 4 mg Q48H PO Last administered on 07/27/18at 17:01; Start 07/27/18 at 17:00 Warfarin Sodium (Coumadin) 5 mg DAILY@17 PO Last administered on 07/09/18at 17:34; Start 07/07/18 at 17:00; Stop 07/10/18 at 10:38; Status DC Warfarin Sodium (Coumadin) 5 mg DAILY@17 PO Last administered on 07/12/18at 16:48; Start 07/10/18 at 17:00; Stop 07/13/18 at 13:31; Status DC Warfarin Sodium (Coumadin) 5 mg DAILY@17 PO Last administered on 06/25/18at 17:03; Start 06/25/18 at 17:00; Stop 06/26/18 at 10:58; Status DC Warfarin Sodium (Coumadin) 5 mg DAILY@17 PO Last administered on 07/24/18at 16:28; Start 07/21/18 at 17:00; Stop 07/25/18 at 10:02; Status DC Zolpidem Tartrate (Ambien) 5 mg QHS PO Last administered on 07/09/18at 21:50; Start 06/20/18 at 21:00; Stop 07/10/18 at 13:17; Status DC Zolpidem Tartrate (Ambien) 5 mg QHSP PRN PO INSOMNIA Last administered on 07/11/18at 21:20; Start 07/10/18 at 14:15 JAC LUNA MD Jul 27, 2018 20:18
--- NOTE | 2018-07-27 20:19 | IPNPDOC ---
PM&R Progress Note DATE OF SERVICE: Jul 27, 2018 Publication Editor Progress Note Subjective; Patient reports his back pain has improved and he is ready for discharge tomorrow. REVIEW OF SYSTEMS: The following is a completed review of systems and has been reviewed. Review of systems otherwise unremarkable. PAIN: +Low back pain EYES: Negative EARS, NOSE, & THROAT: dysphagia resolved CARDIOVASCULAR: +AVR and Afib, recent NSTEMI PULMONARY: Negative. Denies shortness of breath no cough GASTROINTESTINAL: + diarrhea and constipation improving, +tenesmus-improving GENITOURINARY: no retention or dysuria MUSCULOSKELETAL: right LE weakness NEUROLOGICAL: right sided hemiparesis HEMATOLOGICAL: on Coumadin SKIN: intact, petechial rash on bilateral anterior shins PSYCHIATRIC: Unremarkable All other review of systems found to be negative. PHYSICAL EXAMINATION: VITAL SIGNS: Please see below. GENERAL: Pleasant and cooperative. No acute distress. HEENT: PERRL. Extraocular movements intact. Clear conjunctiva, left sided facial droop CARDIOVASCULAR: Regular rate and rhythm. No murmurs, rubs, or gallops LUNGS: Mostly clear to auscultation bilaterally. No wheezes, however , +cough, transmitted upper airway sounds ABDOMEN:Soft, nontender, nondistended. Positive bowel sounds. Normal active bowel sounds NEUROLOGICAL: Alert and oriented times three. Cranial nerves II through XII grossly intact with eyebrow sparing left facial droop, Sensation grossly intact in all 4 limbs EXTREMITIES: 5/5 strength left elbow flexors/extensors, wrist extensors, real estate operations manager and abduction 4/5 right elbow flexion and extension, 3+ wrist extension, 3+ real estate operations manager 5-/5 left hip flexors, knee extensors, ankle DF and EHL, plantar flexion 3/5 right hip flexion, 2+/5knee extensors, ankle DF and EHL, trace DF mild TTP bilateral lumbar paraspinals, worse with extension Tone 1/4 right hip flexor and adductor tone SKIN: bilateral anterior calf petechial rash improving ASSESSMENT:73-year-old M with past medical history of Aortic Valve replacement, Afib, multiple CVAs who presents status post NSTEMI complicated by stroke PLAN: 1. 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 Neuro: s/p recent bilateral embolic strokes in setting of newly diagnosed Afib and AVR, continue statin, Coumadin, rate and rhythm control -increased Fluoxetine from 10mg to 20mg for motor recovery and mood 3. Cardiac: pmh aVR with mechanical valve, not followed by director of automation, will refer to Dr. Alfaro- on Coumadin, diltiazem, amiodarone, and beta michelle family medicine consulted, monitor daily INRs goal 2.5-3.5 -f/u with [facility] director of automation in early July for recent catheterization 4. GI: recent hx of diarrhea, Loperamide prn loose stool, monitor for signs of infection-stable, continue bowel meds for constipation- patient with resolving tenesmus likely from recent colitis, s/p lactulose-bisacodyl suppository and fleet enema prn- improving -continue Anusol suppository BID prn for tenesmus-resolved -epiosde of vomiting yesterday and loose stools with mild leukocytosis, will obtain repeat labs, patient reports he believes it was from the fleet enema 5. GI ppx: Protonix 6. : admission UA and Ucx positive for E Faecalis, s/p 10 day course of Levofloxacin- voiding well 7. Resp: cough persisting, CXR 06-20-18 negative for acute pathology, breathing treatments ordered and Guaifenesin, afebrile , no leukocytosis, likely upper airway congestion,will d/c guaifenasin and duonebs as resolved 8. Heme: petechial rash with drop in platelets, likely drug induced from recent Levofloxacin which can cause drug-induced thrombocytopenia, will monitor and replete as needed, monitor for signs of bleeding- platelet count and petechia improved 9. DVT ppx: on warfarin, dopplers negative for DVT 10. 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 Dispo: 07-28-17 as has medical needs, is still making strides in therapy, and would like to return home, progressing towards goals, Home eval scheduled for 07-26-17 Allergies Coded Allergies: No Known Allergies (Unverified , 07/15/16) Vital Signs Vital Signs Date Time Temp Pulse Resp B/P (MAP) Pulse Ox O2 Delivery O2 Flow Rate FiO2 07/27/18 14:00 97.4 71 18 121/71 (88) 97 Room Air Laboratory Data CBC/BMP Laboratory Tests 07/27/18 06:27 Red Blood Count 4.20 L, Mean Corpuscular Volume 84.5, Mean Corpuscular Hemoglobin 26.9 L, Mean Corpuscular Hemoglobin Concent 31.8 L, Red Cell Distribution Width 15.0 H, Neutrophils (%) (Auto) 70.3 H, Lymphocytes (%) (Auto) 12.6 L, Monocytes (%) (Auto) 12.4 H, Eosinophils (%) (Auto) 3.7 H, Basophils (%) (Auto) 0.4, Neutrophils # (Auto) 3.6, Lymphocytes # (Auto) 0.7 L, Monocytes # (Auto) 0.6, Eosinophils # (Auto) 0.2, Basophils # (Auto) 0.0 Labs 24H Laboratory Tests 2 07/27/18 06:27: Immature Granulocyte % (Auto) 0.6, White Blood Count 5.2, Red Blood Count 4.20L, Hemoglobin 11.3L, Hematocrit 35.5L, Mean Corpuscular Volume 84.5, Mean Corpuscular Hemoglobin 26.9L, Mean Corpuscular Hemoglobin Concent 31.8L, Red Cell Distribution Width 15.0H, Platelet Count 178, Neutrophils (%) (Auto) 70.3H, Lymphocytes (%) (Auto) 12.6L, Monocytes (%) (Auto) 12.4H, Eosinophils (%) (Auto) 3.7H, Basophils (%) (Auto) 0.4, Neutrophils # (Auto) 3.6, Lymphocytes # (Auto) 0.7L, Monocytes # (Auto) 0.6, Eosinophils # (Auto) 0.2, Basophils # (Auto) 0.0, Nucleated Red Blood Cells % (auto) 0.0, Prothrombin Time 30.1H, Prothromb Time International Ratio 2.80 Current Medications Current Medications Current Medications Acetaminophen (Tylenol Tab) 650 mg Q6HP PRN PO PAIN / FEVER Last administered on 07/21/18at 09:02; Start 06/19/18 at 16:45 Albuterol/ Ipratropium (Duoneb (Ipr 0.5mg/Alb 2.5mg)) 3 ml RBID NEB Last administered on 07/06/18at 07:33; Start 06/22/18 at 20:00; Stop 07/06/18 at 16:32; Status DC Amiodarone HCl (Pacerone, Cordarone) 200 mg DAILY PO Last administered on 07/27/18 08:27; Start 06/20/18 at 09:00 Bacitracin (Bacitracin Oint) 1 dose BID TOP Last administered on 07/27/18 08:30; Start 07/05/18 at 21:00 Baclofen (Lioresal) 5 mg BID PO Last administered on 07/27/18 08:29; Start 07/21/18 at 21:00 Bisacodyl (Dulcolax Suppository) 10 mg DAILYPRN PRN [place] CONSTIPATION; Start 07/26/18 at 11:15 Bisacodyl (Dulcolax Suppository) 10 mg DAILYPRN PRN [place] CONSTIPATION Last administered on 07/20/18at 15:03; Start 06/26/18 at 11:00; Stop 07/26/18 at 10:59; Status DC Bisacodyl (Dulcolax Suppository) 10 mg DAILYPRN PRN [place] CONSTIPATION; Start 06/26/18 at 20:30; Stop 06/26/18 at 20:30; Status DC Diltiazem HCl (Cardizem Cd) 240 mg DAILY PO Last administered on 07/27/18at 08:29; Start 06/20/18 at 09:00 Docusate Sodium (Colace) 100 mg BID PO Last administered on 07/23/18at 20:39; Start 06/26/18 at 21:00; Stop 07/26/18 at 11:03; Status DC Docusate Sodium (Colace) 100 mg BID PRN PO CONSTIPATION; Start 07/26/18 at 11:15 Duloxetine HCl (Cymbalta) 30 mg DAILY PO Last administered on 07/20/18at 09:31; Start 07/13/18 at 16:15; Stop 07/20/18 at 16:34; Status DC Duloxetine HCl (Cymbalta) 60 mg DAILY PO Last administered on 07/27/18at 08:27; Start 07/21/18 at 09:00 Fluoxetine HCl (PROzac) 10 mg DAILY PO Last administered on 06/21/18at 07:50; Start 06/20/18 at 09:00; Stop 06/21/18 at 16:29; Status DC Fluoxetine HCl (PROzac) 20 mg DAILY PO Last administered on 07/27/18at 08:29; Start 06/22/18 at 09:00 Gabapentin (Neurontin) 100 mg TID PO Last administered on 07/20/18at 09:31; Start 07/14/18 at 16:00; Stop 07/20/18 at 16:34; Status DC Gabapentin (Neurontin) 200 mg BID PO ; Start 07/27/18 at 21:00 Gabapentin (Neurontin) 200 mg TID PO Last administered on 07/21/18at 17:03; Start 07/20/18 at 21:00; Stop 07/21/18 at 17:23; Status DC Gabapentin (Neurontin) 300 mg TID PO Last administered on 07/27/18at 08:27; Start 07/21/18 at 21:00; Stop 07/27/18 at 10:23; Status DC Guaifenesin (Mucinex Tab Er) 600 mg BID PO Last administered on 07/06/18at 08:41; Start 06/22/18 at 09:00; Stop 07/06/18 at 16:32; Status DC Home Med (Med Rec Complete!) ASDIRECTED XX ; Start 06/19/18 at 20:30; Stop 06/19/18 at 20:30; Status DC Hydrocortisone Acetate (Anusol Hc Supp) 25 mg BID [place] Last administered on 06/30/18at 20:38; Start 06/27/18 at 21:00; Stop 07/05/18 at 12:36; Status DC Hydrocortisone Acetate (Anusol Hc Supp) 25 mg BID PRN [place] DISCOMFORT; Start 07/05/18 at 12:45 Levofloxacin (Levaquin) 750 mg DAILY@06 PO Last administered on 07/02/18at 06:26; Start 06/23/18 at 06:00; Stop 07/02/18 at 06:01; Status DC Lidocaine (Lidoderm Patch) 1 patch DAILY TD Last administered on 07/17/18at 08:54; Start 07/12/18 at 09:00 Loperamide HCl (Imodium Liquid) 2 mg ASDIRECTED PRN PO DIARRHEA; Start 06/19/18 at 16:45 Metoprolol Succinate (TopROL XL) 50 mg DAILY PO Last administered on 06/27/18at 09:05; Start 06/20/18 at 09:00; Stop 06/27/18 at 14:42; Status DC Metoprolol Succinate (TopROL XL) 75 mg DAILY PO Last administered on 07/27/18at 12:15; Start 06/28/18 at 09:00 Miscellaneous (Unresolved Clarification Entry) SEE LABEL COMMENTS DAILY XX ; Start 07/25/18 at 09:00; Stop 07/26/18 at 11:04; Status DC Miscellaneous (Unresolved Clarification Entry) SEE LABEL COMMENTS DAILY XX ; Start 07/26/18 at 09:00; Stop 07/26/18 at 15:04; Status DC Miscellaneous (Unresolved Clarification Entry) SEE LABEL COMMENTS DAILY XX ; Start 07/03/18 at 09:00; Stop 07/03/18 at 13:17; Status DC Miscellaneous (Unresolved Clarification Entry) SEE LABEL COMMENTS DAILY XX ; Start 07/09/18 at 09:00; Stop 07/10/18 at 14:26; Status DC Miscellaneous (Unresolved Clarification Entry) SEE LABEL COMMENTS DAILY XX ; Start 07/16/18 at 09:00; Stop 07/17/18 at 12:06; Status DC Miscellaneous (Unresolved Clarification Entry) SEE LABEL COMMENTS DAILY XX Last administered on 07/21/18at 09:00; Start 07/21/18 at 09:00; Stop 07/21/18 at 12:34; Status DC Miscellaneous (Unresolved Clarification Entry) SEE LABEL COMMENTS DAILY XX ; Start 07/23/18 at 09:00; Stop 07/24/18 at 07:16; Status DC Miscellaneous (Unresolved Clarification Entry) SEE LABEL COMMENTS DAILY XX ; Start 06/29/18 at 09:00; Stop 06/29/18 at 09:00; Status DC Non-Formulary Medication ( See Comment Field Below ) REMOVE LIDODERM PATCH DAILY@21 XX Last administered on 07/17/18at 20:48; Start 07/12/18 at 21:00 Oxycodone/ Acetaminophen (Percocet 5mg/ 325mg Tablet) 1 tab Q4HP PRN PO MIL D/MODERATE PAIN (PS 1-7); Start 07/14/18 at 12:30; Stop 07/26/18 at 15:04; Status DC Pantoprazole Sodium (Protonix) 40 mg DAILY PO Last administered on 07/27/18at 08:27; Start 06/20/18 at 09:00 Pravastatin Sodium (Pravachol) 40 mg QHS PO Last administered on 07/26/18 20:25; Start 06/19/18 at 21:00 Senna (Senokot) 1 tab QHSP PRN PO CONSTIPATION Last administered on 07/23/18 17:00; Start 06/26/18 at 20:30 Sodium Biphosphate/ Sodium Phosphate (Fleet Enema) 1 ea DAILYPRN PRN [place] CONSTIPATION Last administered on 07/24/18at 01:00; Start 06/27/18 at 14:45; Stop 07/26/18 at 15:04; Status DC Tizanidine HCl (Zanaflex) 4 mg Q6HP PRN PO SPASMS Last administered on 07/21/18at 09:01; Start 07/14/18 at 16:30; Stop 07/21/18 at 17:23; Status DC Warfarin Sodium (Coumadin) 0.5 mg DAILY@17 PO Last administered on 07/24/18at 16:29; Start 07/21/18 at 17:00; Stop 07/25/18 at 10:02; Status DC Warfarin Sodium (Coumadin) 1 mg DAILY@1700 PO Last administered on 07/04/18at 18:03; Start 07/03/18 at 17:00; Stop 07/05/18 at 11:30; Status DC Warfarin Sodium (Coumadin) 2 mg DAILY@17 PO Last administered on 07/12/18at 16:48; Start 07/10/18 at 17:00; Stop 07/13/18 at 13:31; Status DC Warfarin Sodium (Coumadin) 2 mg DAILY@17 PO Last administered on 07/18/18at 16:42; Start 07/17/18 at 17:00; Stop 07/19/18 at 08:24; Status DC Warfarin Sodium (Coumadin) 2.5 mg DAILY@17 PO Last administered on 07/13/18at 16:53; Start 07/13/18 at 17:00; Stop 07/14/18 at 10:20; Status DC Warfarin Sodium (Coumadin) 2.5 mg DAILY@1700 PO Last administered on 07/04/18at 18:03; Start 07/03/18 at 17:00; Stop 07/05/18 at 11:30; Status DC Warfarin Sodium (Coumadin) 3 mg DAILY@17 PO Last administered on 07/19/18at 16:13; Start 07/19/18 at 17:00; Stop 07/21/18 at 12:34; Status DC Warfarin Sodium (Coumadin) 3 mg DAILY@17 PO Last administered on 06/27/18at 16:19; Start 06/27/18 at 17:00; Stop 06/28/18 at 10:50; Status DC Warfarin Sodium (Coumadin) 3 mg DAILY@17 PO Last administered on 07/02/18at 16 :58; Start 06/29/18 at 17:00; Stop 07/03/18 at 12:26; Status DC Warfarin Sodium (Coumadin) 3.5 mg DAILY@17 PO ; Start 07/03/18 at 17:00; Status UNV Warfarin Sodium (Coumadin) 4 mg DAILY@17 PO ; Start 07/26/18 at 17:00; Stop 07/26/18 at 17:00; Status DC Warfarin Sodium (Coumadin) 4 mg DAILY@17 PO Last administered on 07/06/18at 16:39; Start 07/05/18 at 17:00; Stop 07/07/18 at 11:16; Status DC Warfarin Sodium (Coumadin) 4 mg DAILY@17 PO Last administered on 07/13/18at 16:53; Start 07/13/18 at 17:00; Stop 07/14/18 at 10:20; Status DC Warfarin Sodium (Coumadin) 4 mg Q48H PO Last administered on 07/27/18at 17:01; Start 07/27/18 at 17:00 Warfarin Sodium (Coumadin) 5 mg DAILY@17 PO Last administered on 07/09/18at 17:34; Start 07/07/18 at 17:00; Stop 07/10/18 at 10:38; Status DC Warfarin Sodium (Coumadin) 5 mg DAILY@17 PO Last administered on 07/12/18at 16:48; Start 07/10/18 at 17:00; Stop 07/13/18 at 13:31; Status DC Warfarin Sodium (Coumadin) 5 mg DAILY@17 PO Last administered on 06/25/18at 17:03; Start 06/25/18 at 17:00; Stop 06/26/18 at 10:58; Status DC Warfarin Sodium (Coumadin) 5 mg DAILY@17 PO Last administered on 07/24/18at 16:28; Start 07/21/18 at 17:00; Stop 07/25/18 at 10:02; Status DC Zolpidem Tartrate (Ambien) 5 mg QHS PO Last administered on 07/09/18at 21:50; Start 06/20/18 at 21:00; Stop 07/10/18 at 13:17; Status DC Zolpidem Tartrate (Ambien) 5 mg QHSP PRN PO INSOMNIA Last administered on 07/11/18at 21:20; Start 07/10/18 at 14:15 JAC LUNA MD Jul 27, 2018 20:19
[2018-07-27] MEDS: **NOTE PATIENT COMMENT** MISC XX SCH (21:00)
[2018-07-27] MEDS: PRAVASTATIN 20 MG TAB PO SCH (21:19)
[2018-07-27] MEDS: GABAPENTIN 100 MG CAP PO SCH (21:20)
[2018-07-28 06:00] VITALS: BP 126/62
[2018-07-28 06:38] LABS: INR 2.43; PROTHROMBIN TIME 26.9 SECONDS (12.1-14.4)
[2018-07-28] MEDS: FLUoxetine 20 MG CAP PO SCH (08:20)
[2018-07-28] MEDS: BACLOFEN 5MG PER 1/2 TABLET PO SCH (08:20)
[2018-07-28] MEDS: DULoxetine 30 MG CAP (CYMBALTA) PO SCH (08:20)
[2018-07-28] MEDS: GABAPENTIN 100 MG CAP PO SCH (08:20)
[2018-07-28] MEDS: PANTOPRAZOLE 40MG TAB (PROTONIX) PO SCH (08:20)
[2018-07-28] MEDS: AMIODARONE 200 MG TAB (PACERONE) PO SCH (08:20)
[2018-07-28] MEDS: LIDOCAINE 5% (LIDODERM) PATCH TD SCH (08:21)
[2018-07-28] MEDS: BACITRACIN OINT 30GM TOP SCH (08:21)
[2018-07-28 09:52] VITALS: BP 144/83
[2018-07-28 09:53] VITALS: BP 144/83
[2018-07-28] MEDS: METOPROLOL SUCC *XL* 25MG TAB (TopROL *XL*) PO SCH (09:53)
[2018-07-28] MEDS ORDERED: DULO30CA PO (10:54)
[2018-07-28] MEDS ORDERED: AMIO200T PO (10:54)
[2018-07-28] MEDS ORDERED: METO1TAB7 PO (10:54)
[2018-07-28] MEDS ORDERED: PANT40TA3 PO (10:54)
[2018-07-28] MEDS ORDERED: BACL10TA2 PO (10:54)
[2018-07-28] MEDS ORDERED: PROZ10CA7 PO (10:54)
[2018-07-28] MEDS ORDERED: PRAV40TA2 PO (10:54)
[2018-07-28] MEDS ORDERED: COUM1TAB14 PO (10:54)
[2018-07-28] MEDS ORDERED: DILT240C77 PO (10:54)
--- NOTE | 2018-07-28 10:59 | PMRNOTEPD ---
PMR Note Subjective; Patient reports his back pain has improved and he is ready for discharge tomorrow. REVIEW OF SYSTEMS: The following is a completed review of systems and has been reviewed. Review of systems otherwise unremarkable. PAIN: +Low back pain EYES: Negative EARS, NOSE, & THROAT: dysphagia resolved CARDIOVASCULAR: +AVR and Afib, recent NSTEMI PULMONARY: Negative. Denies shortness of breath no cough GASTROINTESTINAL: + diarrhea and constipation improving, +tenesmus-improving GENITOURINARY: no retention or dysuria MUSCULOSKELETAL: right LE weakness NEUROLOGICAL: right sided hemiparesis HEMATOLOGICAL: on Coumadin SKIN: intact, petechial rash on bilateral anterior shins PSYCHIATRIC: Unremarkable All other review of systems found to be negative. PHYSICAL EXAMINATION: VITAL SIGNS: Please see below. GENERAL: Pleasant and cooperative. No acute distress. HEENT: PERRL. Extraocular movements intact. Clear conjunctiva, left sided facial droop CARDIOVASCULAR: Regular rate and rhythm. No murmurs, rubs, or gallops LUNGS: Mostly clear to auscultation bilaterally. No wheezes, however , +cough, transmitted upper airway sounds ABDOMEN:Soft, nontender, nondistended. Positive bowel sounds. Normal active bowel sounds NEUROLOGICAL: Alert and oriented times three. Cranial nerves II through XII grossly intact with eyebrow sparing left facial droop, Sensation grossly intact in all 4 limbs EXTREMITIES: 5/5 strength left elbow flexors/extensors, wrist extensors, loader semiconductor dies and abduction 4/5 right elbow flexion and extension, 3+ wrist extension, 3+ loader semiconductor dies 5-/5 left hip flexors, knee extensors, ankle DF and EHL, plantar flexion 3/5 right hip flexion, 2+/5knee extensors, ankle DF and EHL, trace DF mild TTP bilateral lumbar paraspinals, worse with extension Tone 1/4 right hip flexor and adductor tone SKIN: bilateral anterior calf petechial rash improving ASSESSMENT:73-year-old M with past medical history of Aortic Valve replacement, Afib, multiple CVAs who presents status post NSTEMI complicated by stroke PLAN: 1. 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 Neuro: s/p recent bilateral embolic strokes in setting of newly diagnosed Kae b and AVR, continue statin, Coumadin, rate and rhythm control -increased Fluoxetine from 10mg to 20mg for motor recovery and mood 3. Cardiac: pmh aVR with mechanical valve, not followed by director of teaching and learning, will refer to Dr. Alfaro- on Coumadin, diltiazem, amiodarone, and beta michelle family medicine consulted, monitor daily INRs goal 2.5-3.5 -f/u with [facility] director of teaching and learning in early July for recent catheterization 4. GI: recent hx of diarrhea, Loperamide prn loose stool, monitor for signs of infection-stable, continue bowel meds for constipation- patient with resolving tenesmus likely from recent colitis, s/p lactulose-bisacodyl suppository and fleet enema prn- improving -continue Anusol suppository BID prn for tenesmus-resolved -epiosde of vomiting yesterday and loose stools with mild leukocytosis, will obtain repeat labs, patient reports he believes it was from the fleet enema 5. GI ppx: Protonix 6. : admission UA and Ucx positive for E Faecalis, s/p 10 day course of Levofloxacin- voiding well 7. Resp: cough persisting, CXR 06-20-18 negative for acute pathology, breathing treatments ordered and Guaifenesin, afebrile , no leukocytosis, likely upper airway congestion,will d/c guaifenasin and duonebs as resolved 8. Heme: petechial rash with drop in platelets, likely drug induced from recent Levofloxacin which can cause drug-induced thrombocytopenia, will monitor and replete as needed, monitor for signs of bleeding- platelet count and petechia improved 9. DVT ppx: on warfarin, dopplers negative for DVT 10. 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 Dispo: 07-28-17 as has medical needs, is still making strides in therapy, and would like to return home, progressing towards goals, Home eval scheduled for 07-26-17 His limitations in ambulation are significant enough that it limits him from accomplishing his MRADLs and he cannot benefit from an assistive device at this time. The home is wheelchair accessible, and the wheelchair will improve his mobility and ability to participate in ADLs, and he is willing to use one, his caregiver is willing to provide assistance with one. He will need a wheelchair. JAC LUNA MD Jul 28, 2018 10:59
== END 2018-07-28 13:13 | disposition home health service (06) | DRG 56 ==
LOC: M PM&R 19:25
PROVIDERS: ADMIT Physical Medicine & Rehabilitation; ATTEND Physical Medicine & Rehabilitation
DX: I69.354 Hemiplegia and hemiparesis following cerebral infarction affecting left non-dominant side (principal); I21.4 Non-ST elevation (NSTEMI) myocardial infarction; N39.0 Urinary tract infection, site not specified; I69.391 Dysphagia following cerebral infarction; R05 Cough; I10 Essential (primary) hypertension; F32.9 Major depressive disorder, single episode, unspecified; K59.00 Constipation, unspecified; I69.392 Facial weakness following cerebral infarction; R23.3 Spontaneous ecchymoses; R19.8 Other specified symptoms and signs involving the digestive system and abdomen; B95.2 Enterococcus as the cause of diseases classified elsewhere; M48.061 Spinal stenosis, lumbar region without neurogenic claudication; M54.5 Low back pain; M62.830 Muscle spasm of back; I48.91 Unspecified atrial fibrillation; Z79.01 Long term (current) use of anticoagulants; Z95.2 Presence of prosthetic heart valve; Z79.899 Other long term (current) drug therapy; Z87.891 Personal history of nicotine dependence; T36.95XA Adverse effect of unspecified systemic antibiotic, initial encounter

== ENCOUNTER → 2018-07-31 | Outpatient (REF) | payer MEDICARE ==
[~2018-07-31] MED LIST changes: +AMIO200T PO; +BACL10TA2 PO; +COUM1TAB14 PO; +DILT240C77 PO; +DULO30CA PO; +LOPE2CAP PO; +METO1TAB7 PO; +PANT40TA3 PO; +PROZ10CA7 PO
[2018-07-31 15:19] LABS: INR 1.6; PROTHROMBIN TIME 19.3 SECONDS (12.1-14.4)
== END ==
LOC: M SHH 14:57
PROVIDERS: ATTEND Physical Medicine & Rehabilitation
DX: Z51.81 Encounter for therapeutic drug level monitoring (principal); Z79.01 Long term (current) use of anticoagulants

== ENCOUNTER → 2018-08-02 | Outpatient (REF) | payer MEDICARE ==
[2018-08-02 10:12] LABS: INR 1.97; PROTHROMBIN TIME 22.8 SECONDS (12.1-14.4)
== END ==
LOC: M SHH 09:49
PROVIDERS: ATTEND Physician Assistant Medical
DX: Z51.81 Encounter for therapeutic drug level monitoring (principal); Z79.01 Long term (current) use of anticoagulants

== ENCOUNTER → 2018-08-07 | Outpatient (REF) | payer MEDICARE ==
[2018-08-07 11:00] LABS: INR 4.36; PROTHROMBIN TIME 42.8 SECONDS (12.1-14.4)
== END ==
LOC: M SHH 10:17
PROVIDERS: ATTEND Physician Assistant Medical
DX: Z79.01 Long term (current) use of anticoagulants (principal)

== ENCOUNTER → 2018-08-10 | Outpatient (REF) | payer MEDICARE ==
[2018-08-10 18:27] LABS: INR 4.71; PROTHROMBIN TIME 45.5 SECONDS (12.1-14.4)
== END ==
LOC: M SHH 17:45
PROVIDERS: ATTEND Physician Assistant Medical
DX: I10 Essential (primary) hypertension (principal); Z79.01 Long term (current) use of anticoagulants

== ENCOUNTER → 2018-08-15 | Outpatient (REF) | payer MEDICARE ==
[2018-08-15 14:55] LABS: INR 2.89; PROTHROMBIN TIME 30.9 SECONDS (12.1-14.4)
== END ==
LOC: M SHH 13:53
PROVIDERS: ATTEND Physical Medicine & Rehabilitation
DX: Z79.01 Long term (current) use of anticoagulants (principal)

== ENCOUNTER → 2018-08-21 | Outpatient (REF) | payer MEDICARE ==
[2018-08-21 12:25] LABS: INR 3.35; PROTHROMBIN TIME 34.7 SECONDS (12.1-14.4)
== END ==
LOC: M SHH 12:00
PROVIDERS: ATTEND Physician Assistant Medical
DX: Z79.01 Long term (current) use of anticoagulants (principal)

== ENCOUNTER → 2018-08-28 | Outpatient (REF) | payer MEDICARE ==
[2018-08-28 13:57] LABS: INR 3.21; PROTHROMBIN TIME 33.6 SECONDS (12.1-14.4)
== END ==
LOC: M SHH 12:30
PROVIDERS: ATTEND Physician Assistant Medical
DX: Z79.01 Long term (current) use of anticoagulants (principal); Z95.2 Presence of prosthetic heart valve; I63.49 Cerebral infarction due to embolism of other cerebral artery

== ENCOUNTER → 2018-09-11 | Outpatient (REF) | payer MEDICARE ==
[2018-09-11 12:03] LABS: INR 3.54; PROTHROMBIN TIME 36.3 SECONDS (12.1-14.4)
== END ==
LOC: M SHH 11:00
PROVIDERS: ATTEND Physical Medicine & Rehabilitation
DX: I48.0 Paroxysmal atrial fibrillation (principal)

== ENCOUNTER → 2018-09-11 | Outpatient (REF) | payer MEDICARE ==
[2018-09-11 11:51] LABS: HEMATOCRIT 44.2 % (42.0-52.0); HEMOGLOBIN 13.8 g/dl (13.5-17.5); MEAN CORPUSCULAR HEMOGLOBIN 26.4 pg (27.0-33.0); MEAN CORPUSCULAR HGB CONC 31.2 g/dl (32.0-36.5); MEAN CORPUSCULAR VOLUME 84.7 fl (80.0-96.0); PLATELET COUNT, AUTOMATED 200 10^3/uL (150-450); RED BLOOD COUNT 5.22 10^6/uL (4.30-6.10); WHITE BLOOD COUNT 5.1 10^3/uL (4.0-10.0)
[2018-09-11 12:30] LABS: ALBUMIN 3.5 GM/DL (3.2-5.2); ALT/SGPT 20 U/L (12-78); BILIRUBIN,TOTAL 0.4 MG/DL (0.2-1.0); BLOOD UREA NITROGEN 19 MG/DL (7-18); CALCIUM LEVEL 8.5 MG/DL (8.8-10.2); CARBON DIOXIDE LEVEL 29 MEQ/L (21-32); CHLORIDE LEVEL 105 MEQ/L (98-107); CREATININE FOR GFR 1.14 MG/DL (0.70-1.30); GLOMERULAR FILTRATION RATE > 60.0 (>42); GLUCOSE, FASTING 102 MG/DL (70-100); POTASSIUM SERUM 4.1 MEQ/L (3.5-5.1); SODIUM LEVEL 141 MEQ/L (136-145); TOTAL PROTEIN 6.9 GM/DL (6.4-8.2)
== END ==
LOC: M SHH 10:57
PROVIDERS: ATTEND Internal Medicine Cardiovascular Disease
DX: I48.0 Paroxysmal atrial fibrillation (principal); I11.9 Hypertensive heart disease without heart failure

== ENCOUNTER → 2018-09-25 | Outpatient (REF) | payer MEDICARE ==
[2018-09-25 12:59] LABS: INR 2.28; PROTHROMBIN TIME 25.6 SECONDS (12.1-14.4)
== END ==
LOC: M LAB REF 11:46 → M SHH 11:46
PROVIDERS: ATTEND Physical Medicine & Rehabilitation
DX: Z79.01 Long term (current) use of anticoagulants (principal)

== ENCOUNTER → 2018-10-10 | Outpatient (REF) | payer MEDICARE ==
[2018-10-10 12:38] LABS: BASO % 0.3 % (0.0-1.0); EOS # 0.1 10^3/uL (0.0-0.50); EOS % 1.9 % (0.0-3.0); HEMATOCRIT 44.1 % (42.0-52.0); HEMOGLOBIN 13.7 g/dl (13.5-17.5); LYMPH # 0.8 10^3/uL (1.5-4.5); LYMPH % 13.6 % (24.0-44.0); MEAN CORPUSCULAR HEMOGLOBIN 25.7 pg (27.0-33.0); MEAN CORPUSCULAR HGB CONC 31.1 g/dl (32.0-36.5); MEAN CORPUSCULAR VOLUME 82.6 fl (80.0-96.0); MONO # 0.4 10^3/uL (0.0-0.8); MONO % 6.8 % (0.0-5.0); NEUTROPHILS # 4.4 10^3/uL (1.8-7.7); NEUTROPHILS % 77.1 % (36.0-66.0); PLATELET COUNT, AUTOMATED 267 10^3/uL (150-450); RED BLOOD COUNT 5.34 10^6/uL (4.30-6.10); WHITE BLOOD COUNT 5.8 10^3/uL (4.0-10.0)
[2018-10-10 12:51] LABS: INR 3.84; PROTHROMBIN TIME 38.7 SECONDS (12.1-14.4)
[2018-10-10 13:32] LABS: ALBUMIN 3.7 GM/DL (3.2-5.2); ALT/SGPT 23 U/L (12-78); BILIRUBIN,TOTAL 0.5 MG/DL (0.2-1.0); BLOOD UREA NITROGEN 16 MG/DL (7-18); CALCIUM LEVEL 8.6 MG/DL (8.8-10.2); CARBON DIOXIDE LEVEL 28 MEQ/L (21-32); CHLORIDE LEVEL 103 MEQ/L (98-107); CHOLESTEROL LEVEL 155 MG/DL (<200); CHOLESTEROL RISK RATIO 3.522 (<5); CREATININE FOR GFR 1.12 MG/DL (0.70-1.30); GLOMERULAR FILTRATION RATE > 60.0 (>42); GLUCOSE, FASTING 74 MG/DL (70-100); HDL CHOLESTEROL 44 MG/DL (>40); LDL CHOLESTEROL 78 MG/DL (<100); NON-HDL-C 111 MG/DL; POTASSIUM SERUM 4.2 MEQ/L (3.5-5.1); SODIUM LEVEL 140 MEQ/L (136-145); TOTAL PROTEIN 7.5 GM/DL (6.4-8.2); TRIGLYCERIDES LEVEL 166 MG/DL (<150)
== END ==
LOC: M SFHCADAM 07:49
PROVIDERS: ATTEND Physician Assistant Medical
DX: I10 Essential (primary) hypertension (principal); E78.49 Other hyperlipidemia; Z79.01 Long term (current) use of anticoagulants; Z95.2 Presence of prosthetic heart valve

== ENCOUNTER 2018-10-19 10:05 | Outpatient (RCR) | payer MEDICARE | END 2018-10-22 | LOC: M PT 10:05 | PROVIDERS: ATTEND Physician Assistant Medical | DX: G81.91 Hemiplegia, unspecified affecting right dominant side (principal) ==

== ENCOUNTER → 2018-10-24 | Outpatient (REF) | payer MEDICARE ==
[2018-10-24 12:57] LABS: INR 4.12; PROTHROMBIN TIME 40.9 SECONDS (12.1-14.4)
== END ==
LOC: M SFHCADAM 09:11
PROVIDERS: ATTEND Physician Assistant Medical
DX: Z79.01 Long term (current) use of anticoagulants (principal); Z95.2 Presence of prosthetic heart valve

== ENCOUNTER → 2018-11-07 | Outpatient (REF) | payer MEDICARE ==
[~2018-11-07] MED LIST changes: +DILT1CAP5 PO; -DILT240C77 PO; -DULO30CA PO; +DULO30CA9 PO; -EQL50TAB4 PO; +ZINC1TAB2 PO
[2018-11-07 13:55] LABS: ALBUMIN 3.8 GM/DL (3.2-5.2); BLOOD UREA NITROGEN 21 MG/DL (7-18); CALCIUM LEVEL 8.9 MG/DL (8.8-10.2); CARBON DIOXIDE LEVEL 30 MEQ/L (21-32); CHLORIDE LEVEL 104 MEQ/L (98-107); CREATININE FOR GFR 1.23 MG/DL (0.70-1.30); GLOMERULAR FILTRATION RATE > 60.0 (>42); GLUCOSE, FASTING 91 MG/DL (70-100); MAGNESIUM LEVEL 2.1 MG/DL (1.8-2.4); PHOSPHORUS LEVEL 2.7 MG/DL (2.5-4.9); POTASSIUM SERUM 4.2 MEQ/L (3.5-5.1); SODIUM LEVEL 139 MEQ/L (136-145)
[2018-11-08 10:13] LABS: NT-PRO BNP 137 PG/ML (<450)
== END ==
LOC: M LABDRWAD 12:41
PROVIDERS: ATTEND Internal Medicine Cardiovascular Disease
DX: I50.32 Chronic diastolic (congestive) heart failure (principal); I11.0 Hypertensive heart disease with heart failure; Z51.81 Encounter for therapeutic drug level monitoring; Z79.01 Long term (current) use of anticoagulants; Z95.2 Presence of prosthetic heart valve

== ENCOUNTER → 2018-11-07 | Outpatient (REF) | payer MEDICARE ==
[2018-11-07 13:49] LABS: INR 3.42; PROTHROMBIN TIME 35.3 SECONDS (12.1-14.4)
== END ==
LOC: M SFHCADAM 12:43
PROVIDERS: ATTEND Physician Assistant Medical
DX: Z51.81 Encounter for therapeutic drug level monitoring (principal); Z79.01 Long term (current) use of anticoagulants; Z95.2 Presence of prosthetic heart valve

== ENCOUNTER 2018-11-20 10:13 | Outpatient (RCR) | payer MEDICARE | END 2018-11-21 | LOC: M PT 10:13 | PROVIDERS: ATTEND Physician Assistant Medical | DX: G81.91 Hemiplegia, unspecified affecting right dominant side (principal) ==

== ENCOUNTER 2018-12-20 10:12 | Outpatient (RCR) | payer MEDICARE | END 2018-12-22 | LOC: M OT 10:12 | PROVIDERS: ATTEND Physician Assistant Medical | DX: G81.91 Hemiplegia, unspecified affecting right dominant side (principal) ==

== ENCOUNTER → 2019-01-15 | Outpatient (CLI) | payer MEDICARE ==
[~2019-01-15] MED LIST changes: +ATOR40TA75 PO; +CARV25TA PO; +CHLO125TA PO; +EPLE25TA PO; +STOO100C PO
--- NOTE | 2019-01-15 13:24 | REP ---
Digital diagnostic bilateral mammography with CAD and focused bilateral subareolar sonography. History: Bilateral breast tenderness times 2 months post starting new medication. Mammographic findings: Craniocaudad and mediolateral oblique views of each breast were obtained. There is mild subareolar density pattern bilaterally suggestive of gynecomastia. No mass lesion is observed. This pattern is more prominent on the left than the right but bilateral. No worrisome skin changes seen. No other mammographic abnormality. Sonographic findings: Bilateral retroareolar breast scanning demonstrates mild hypoechoic tissue in the subareolar zone consistent with mild gynecomastia. This is a little more prominent on the left than the right matching the mammographic pattern. Impression: BIRADS 2: BI-RADS/ACR category 2 mammogram. Benign Findings. BI-RADS category 2 benign findings. Gynecomastia pattern seen mammographically and sonographically. Clinical followup is advised. This mammogram was interpreted with the aid of an FDA-approved computer-aided detection system. The patient states she had a clinical breast exam in December 2018. The patient letter being requested is male patient letter M2. Electronically Signed by Sarwat Helm MD 01/15/2019 04:09 P
== END ==
LOC: M RAD 11:17
PROVIDERS: ATTEND Physician Assistant Medical
DX: N62 Hypertrophy of breast (principal); N64.4 Mastodynia

== ENCOUNTER 2019-01-17 09:53 | Outpatient (RCR) | payer MEDICARE ==
[~2019-01-17 09:53] MED LIST changes: -ATOR40TA75 PO; -CARV25TA PO; -CHLO125TA PO; -EPLE25TA PO; -STOO100C PO
[2019-01-19] MEDS ORDERED: STOO100C PO (14:01)
[2019-01-19] MEDS ORDERED: ATOR40TA75 PO (14:01)
[2019-01-19] MEDS ORDERED: CARV25TA PO (14:01)
[2019-01-19] MEDS ORDERED: CHLO125TA PO (14:01)
[2019-01-19] MEDS ORDERED: EPLE25TA PO (14:01)
== END 2019-01-21 ==
LOC: M PT 09:53
PROVIDERS: ATTEND Physician Assistant Medical
DX: G81.91 Hemiplegia, unspecified affecting right dominant side (principal)

== ENCOUNTER 2019-01-19 13:20 | Emergency (ER) | payer MEDICARE ==
[~2019-01-19] VITALS: Ht 172.7 cm; Wt 90.9 kg
[2019-01-19] MEDS ORDERED: ADACEL/BOOSTRIX VACCINE (DIPHTH/PERTUSS/ACELL/TETANUS)0.5ML SYR (90715) IM ONE (14:00)
[2019-01-19] MEDS ORDERED: ATOR40TA75 PO (14:01)
[2019-01-19] MEDS ORDERED: CHLO125TA PO (14:01)
[2019-01-19] MEDS ORDERED: EPLE25TA PO (14:01)
[2019-01-19] MEDS ORDERED: CARV25TA PO (14:01)
[2019-01-19] MEDS ORDERED: MM S100C PO (14:01)
--- NOTE | 2019-01-19 14:08 | REP ---
CT brain without contrast: History: Trauma. Comparison CT study March 09, 2008. 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 The bony calvarium is intact. No skull fractures seen. There is fairly heavy vascular calcification in the distal carotid arteries. The visualized paranasal sinuses are clear except for some partial opacification of the right posterior ethmoid air cells. No intraorbital abnormality is seen. There is generalized cerebral atrophy. There is an old cortical infarction in the right occipital lobe with an area of encephalomalacia. There is also an old lacunar infarct in the periventricular white matter of the right frontal lobe. There is no evidence of intracranial hemorrhage. No acute infarction is appreciated. No mass, extra-axial fluid collection, or midline shift is seen. Impression: 1. Old cortical infarct right occipital lobe. 2. Old periventricular lacunar infarct right frontal lobe. 3. Diffuse moderate atrophy and vascular calcification. 4. Partial opacification right posterior ethmoid air cells. 5. Otherwise, no significant abnormality. Electronically Signed by Sarwat Helm MD 01/19/2019 04:24 P
--- NOTE | 2019-01-19 14:11 | REP ---
CT study of the cervical spine without contrast: History: Trauma. Technique: Helical scanning is acquired and overlapping 2 mm high resolution axial images were generated and reviewed at bone and soft tissue window settings. Coronal and sagittal multiplanar re-formations images are generated. CT findings: There is no evidence of cervical spine element fracture. No skull base fracture is seen. Cervical vertebral body heights are preserved. Alignment is normal. Facet joints are normally aligned bilaterally at each cervical level on multiplanar re-formations images. There is no evidence of intraspinal or paraspinal hematoma. No extra vertebral abnormality is seen. There are degenerative disc changes at C3-4, C4-5, C5-6, and C6-7. There is right-sided neural foraminal narrowing at the C4-5 level. Impression: Degenerative spondylosis changes. Otherwise negative CT study of the cervical spine without contrast. No fracture seen. Electronically Signed by Sarwat Helm MD 01/19/2019 02:02 P
[2019-01-19 15:03] VITALS: BP 134/63
== END 2019-01-19 15:04 | disposition home or self-care (01) ==
LOC: M ED 13:20
DX: S00.01XA Abrasion of scalp, initial encounter (principal); W01.198A Fall on same level from slipping, tripping and stumbling with subsequent striking against other object, initial encounter; Y92.094 Garage of other non-institutional residence as the place of occurrence of the external cause; I48.91 Unspecified atrial fibrillation; I10 Essential (primary) hypertension; Z95.2 Presence of prosthetic heart valve; Z86.73 Personal history of transient ischemic attack (TIA), and cerebral infarction without residual deficits; Z79.899 Other long term (current) drug therapy; Z79.01 Long term (current) use of anticoagulants

== ENCOUNTER 2019-01-29 10:05 | Outpatient (RCR) | payer MEDICARE ==
[~2019-01-29 10:05] MED LIST changes: +ATOR40TA75 PO; +CARV25TA PO; +CHLO125TA PO; +EPLE25TA PO; +MM S100C PO
== END 2019-02-21 ==
LOC: M PT 10:05
PROVIDERS: ATTEND Physician Assistant Medical
DX: Z51.89 Encounter for other specified aftercare (principal); G81.91 Hemiplegia, unspecified affecting right dominant side

== ENCOUNTER → 2019-02-01 | Outpatient (REF) | payer MEDICARE ==
[2019-02-01 20:00] LABS: ALBUMIN 3.8 GM/DL (3.2-5.2); BILIRUBIN,TOTAL 0.6 MG/DL (0.2-1.0); CREATININE FOR GFR 1.42 MG/DL (0.70-1.30); GLOMERULAR FILTRATION RATE 51.7 (>42)
== END ==
LOC: M LABDRWAD 19:02
PROVIDERS: ATTEND Internal Medicine Cardiovascular Disease
DX: I50.32 Chronic diastolic (congestive) heart failure (principal)
CPT/HCPCS: 80053; 85610; G0463

== ENCOUNTER → 2019-03-01 | Outpatient (REF) | payer MEDICARE ==
[2019-03-01 12:32] LABS: CREATININE FOR GFR 1.29 MG/DL (0.70-1.30); GLOMERULAR FILTRATION RATE 57.8 (>42)
== END ==
LOC: M SFHCADAM 09:12
PROVIDERS: ATTEND Physician Assistant Medical
DX: I10 Essential (primary) hypertension (principal); Z79.01 Long term (current) use of anticoagulants
CPT/HCPCS: 80048; 85610; G0463

== ENCOUNTER → 2019-08-27 | Outpatient (REF) | payer MEDICARE ==
[2019-08-27 13:37] LABS: BASO % 0.5 % (0.0-1.0); EOS # 0.1 10^3/uL (0.0-0.5); HEMATOCRIT 49.2 % (42.0-52.0); HEMOGLOBIN 15.3 g/dl (13.5-17.5); LYMPH # 0.8 10^3/uL (1.5-5.0); LYMPH % 14.1 % (24.0-44.0); MEAN CORPUSCULAR HEMOGLOBIN 27.6 pg (27.0-33.0); MEAN CORPUSCULAR HGB CONC 31.1 g/dl (32.0-36.5); MEAN CORPUSCULAR VOLUME 88.8 fl (80.0-96.0); MONO # 0.7 10^3/uL (0.0-0.8); MONO % 11.7 % (0.0-5.0); NEUTROPHILS # 4.3 10^3/uL (1.5-8.5); NEUTROPHILS % 72.4 % (36.0-66.0); PLATELET COUNT, AUTOMATED 187 10^3/uL (150-450); RED BLOOD COUNT 5.54 10^6/uL (4.30-6.10)
[2019-08-27 13:54] LABS: ALBUMIN 3.8 GM/DL (3.2-5.2); BILIRUBIN,TOTAL 0.5 MG/DL (0.2-1.0); CALCIUM LEVEL 8.7 MG/DL (8.8-10.2); CHOLESTEROL RISK RATIO 3.118 (<5); CREATININE FOR GFR 1.36 MG/DL (0.70-1.30); GLOMERULAR FILTRATION RATE 54.2 (>42); POTASSIUM SERUM 4.7 MEQ/L (3.5-5.1); THYROID STIMULATING HORMONE 1.7 uIU/ML (0.358-3.740); TOTAL PROTEIN 6.7 GM/DL (6.4-8.2)
== END ==
LOC: M SFHCADAM 09:33
PROVIDERS: ATTEND Physician Assistant Medical
DX: I10 Essential (primary) hypertension (principal); I63.49 Cerebral infarction due to embolism of other cerebral artery; I25.10 Atherosclerotic heart disease of native coronary artery without angina pectoris; Z23 Encounter for immunization; Z79.01 Long term (current) use of anticoagulants
CPT/HCPCS: 80053; 80061; 84443; 85025; 85610; 90732; G0009; G0463

== ENCOUNTER → 2019-10-03 | Outpatient (REF) | payer MEDICARE ==
[2019-10-03 13:27] LABS: ALBUMIN 3.7 GM/DL (3.2-5.2); CREATININE FOR GFR 1.43 MG/DL (0.70-1.30); GLOMERULAR FILTRATION RATE 51.2 (>42); MAGNESIUM LEVEL 2.4 MG/DL (1.8-2.4); PHOSPHORUS LEVEL 2.2 MG/DL (2.5-4.9); POTASSIUM SERUM 3.9 MEQ/L (3.5-5.1)
== END ==
LOC: M LABDRWAD 12:37
PROVIDERS: ATTEND Internal Medicine Cardiovascular Disease
DX: I11.0 Hypertensive heart disease with heart failure (principal); I50.32 Chronic diastolic (congestive) heart failure

== ENCOUNTER 2019-10-16 11:49 | Inpatient (IN) | payer MEDICARE ==
[~2019-10-16] VITALS: Ht 172.7 cm; Wt 90.6 kg
[2019-10-16] MEDS ORDERED: NS 1,000 ML IV SCH ×2 (11:57→21:00)
[2019-10-16] MEDS ORDERED: ONDANSETRON 4MG/2ML VIAL (J2405) IV ONE (12:00)
[2019-10-16] MEDS ORDERED: MORPHINE 4 MG/ML 1ML VIAL/SYRINGE (J2270) IV ONE (12:00)
--- NOTE | 2019-10-16 12:47 | REP ---
Clinical: Fall. Comparison: 01/19/2019 . Findings: Age-related atrophy with periventricular leukomalacia and microvascular ischemic changes are appreciated. Evidence for old right occipital lobe infarct with encephalomalacia. The ventricles and sulci are symmetric. Chu-white differentiation is maintained. There is no evidence for acute intracranial hemorrhage, mass/mass effect, pathology or infarction. No extra-axial fluid collection. Calvarium is intact. Paranasal sinuses and mastoid air cells are clear. Impression: Age related atrophy and microvascular ischemic changes. No acute intracranial hemorrhage, infarction, or mass/mass effect. Electronically Signed by Edmond Pro MD 10/16/2019 12:38 P
--- NOTE | 2019-10-16 12:49 | REP ---
CT study of the cervical spine without contrast: History: Injury in a fall. Comparison CT study January 19, 2019. Technique: Helical scanning is acquired and overlapping 2 mm high resolution axial images were generated and reviewed at bone and soft tissue window settings. Coronal and sagittal multiplanar re-formations images are generated. CT findings: There is no evidence of cervical spine element fracture. No skull base fracture is seen. Cervical vertebral body heights are preserved. Alignment is normal. Facet joints are normally aligned bilaterally at each cervical level on multiplanar re-formations images. There is no evidence of intraspinal or paraspinal hematoma. No extra vertebral abnormality is seen. Degenerative spondylosis changes are again noted with diffuse degenerative disc disease changes. These are unchanged when compared with the January 19, 2019 study. There are facet hypertrophy changes as well also unchanged. Impression: Stable degenerative spondylosis changes unchanged from January 19, 2019. Otherwise negative CT study of the cervical spine without contrast. No fracture seen. Electronically Signed by Sarwat Helm MD 10/16/2019 12:41 P
[2019-10-16 12:52] LABS: BASO % 0.3 % (0.0-1.0); EOS # 0.1 10^3/uL (0.0-0.5); EOS % 0.8 % (0.0-3.0); HEMATOCRIT 47.1 % (42.0-52.0); HEMOGLOBIN 15.3 g/dl (13.5-17.5); LYMPH # 0.8 10^3/uL (1.5-5.0); LYMPH % 7.5 % (24.0-44.0); MEAN CORPUSCULAR HEMOGLOBIN 27.4 pg (27.0-33.0); MEAN CORPUSCULAR HGB CONC 32.5 g/dl (32.0-36.5); MEAN CORPUSCULAR VOLUME 84.3 fl (80.0-96.0); MONO # 0.9 10^3/uL (0.0-0.8); MONO % 9.1 % (0.0-5.0); NEUTROPHILS # 8.3 10^3/uL (1.5-8.5); NEUTROPHILS % 81.9 % (36.0-66.0); PLATELET COUNT, AUTOMATED 194 10^3/uL (150-450); RED BLOOD COUNT 5.59 10^6/uL (4.30-6.10); WHITE BLOOD COUNT 10.2 10^3/uL (4.0-10.0)
[2019-10-16 13:17] LABS: INR 3.98; PARTIAL THROMBOPLASTIN TIME 41.8 SECONDS (25.0-38.4)
[2019-10-16 13:20] LABS: CALCIUM LEVEL 8.8 MG/DL (8.8-10.2); CREATININE FOR GFR 1.34 MG/DL (0.70-1.30); GLOMERULAR FILTRATION RATE 55.2 (>42); POTASSIUM SERUM 3.4 MEQ/L (3.5-5.1)
--- NOTE | 2019-10-16 13:50 | REP ---
Clinical: Preoperative assessment. Comparison: 06/20/2018 Findings: Cardiomegaly and tortuous possible aneurysmal thoracic aorta is again noted along with evidence for prior sternotomy and aortic valve repair. The lung aguilar are clear. No consolidation, obvious effusion, or pneumothorax. Skeletal structures intact. Impression: Cardiomegaly and thoracic aortic aneurysm similar to prior examination. No focal consolidation effusion. Electronically Signed by Edmond Pro MD 10/16/2019 01:41 P
--- NOTE | 2019-10-16 13:51 | REP ---
Clinical: Trauma. Technique: Frontal view of the pelvis with neutral and frog lateral views of the right hip. Findings: Fracture of the right femoral neck is appreciated. Age-related osteopenia and degenerative changes noted throughout the remainder of the examination. Impression: Transverse fracture of the right femoral neck. Electronically Signed by Edmond Pro MD 10/16/2019 01:42 P
--- NOTE | 2019-10-16 13:52 | REP ---
Clinical: Trauma. Technique: AP and lateral views of the mid to distal femur. Findings: Visualized portions of the femur demonstrate age-related osteopenia and degenerative changes. No acute fracture on visualized portions of the femur noted. Transverse fracture through the right femoral neck identified on hip series. Impression: 1. Visible portions of the femur demonstrate osteopenia and degenerative changes. 2. Right femoral neck fracture identified on hip series. Electronically Signed by Edmond Pro MD 10/16/2019 01:43 P
[2019-10-16] MEDS ORDERED: PANT-23 PO (14:13)
[2019-10-16] MEDS ORDERED: AMIO200T PO (14:13)
[2019-10-16] MEDS ORDERED: DULO30CA9 PO (14:13)
[2019-10-16] MEDS ORDERED: WARF-20 PO ×2 (14:13)
--- NOTE | 2019-10-16 15:49 | CR ---
DATE OF CONSULTATION: 10/16/2019 REASON FOR CONSULTATION: Right femoral neck fracture. HISTORY OF PRESENT ILLNESS: He is a 74-year-old male, who had a mechanical low energy fall at home injuring his right side, complaining of right hip and groin pain, unable to ambulate, and was transferred to [facility] and found to have a displaced right femoral neck fracture, and I was asked to come see him for this injury. He complains only of isolated soreness of the right hip and groin area. There is no other injury. He did not lose consciousness. Does not complain of neck or head pain. Does not complaint of any other body pain other than his right hip. Relevant history to the history of present illness is that he is status post a right hemiparetic stroke involving his right upper and lower extremities. However, his right upper extremity has recovered nicely but he remains quite weak and cane dependent because of weakness in the right leg. The stroke was year ago. PAST MEDICAL HISTORY: 1. 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 2. Status post aortic valve replacement with a mechanical valve in 1985. 3. Hypertension. 4. Hypercholesterolemia. 5. Pulmonary hypertension. PAST SURGICAL HISTORY: 1. Aortic valve replacement. 2. Hernia. 3. Tonsils and adenoids. 4. Left hand surgery. 5. Left knee arthroscopy. MEDICATIONS: - amiodarone - atorvastatin - baclofen - carvedilol - chlorthalidone - Colace - duloxetine - Eflone - pantoprazole - Coumadin ALLERGIES: NO KNOWN DRUG ALLERGIES. SOCIAL HISTORY: He quit smoking many years ago, quit drinking many years ago. He is and lives in [place] near [place]. 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 He has three healthy children. Medical provider is Maine Mccarty and Dr. Velazco, educational diagnostician Dr. Alfaro. On exam, alert, pleasant male, lying on a stretcher. Temperature is not recorded. Pulse is 55, respirations 18, blood pressure 148/70 on room air, oxygen saturation is 94%. HEENT exam showed a normocephalic, atraumatic male. Extraocular muscles grossly normal. Oropharynx was benign. Neck was nontender. Upper Extremities: You could elevate his arms up over head. The right side however had some delay in elevation. He could elevate up at least 160 is shy compared to the opposite left side. There was some mild paresis noted when motion of the right upper extremity, but it was atraumatic without any signs of swelling, deformity or crepitations. His lungs were clear to auscultation. Heart: He had a diastolic click. Abdomen was nontender. Chest was nontender. Lower Extremities: He could a do a straight-leg raise on the left side without any pain, soreness, deformity or crepitance. Right hip was irritable with any attempt at range of motion. He held his leg with his knee flexed and right lower extremity externally rotated for comfort, but he had a dorsalis pedis pulse bilaterally and he did not have ability to dorsiflex or plantarflex his great toe or the ankle. It was actually quite weak and says that is chronic for him, but sensory testing grossly was intact. Laboratory studies showed a white count of 10.2, hematocrit 47.1, platelets 194. Sodium 136, potassium 3.4, chloride 101, bicarbonate 29, BUN 22, creatinine 1.34, sugar of 94. ProTime was 39, INR of 3.98. PTT was 41.8. Chest x-ray showed no acute pulmonary disease. EKG showed sinus bradycardia, possible old inferior myocardial infarction and anteroseptal myocardial infarction of indeterminate age. Head CT showed no acute findings. Neck CT showed no acute findings for fractures. He had degenerative spondylosis that has been unchanged from a CT scan from December of 2018. Chest x-ray did show cardiomegaly and thoracic aortic aneurysm that is similar to prior x-rays. Femur x-ray you could see the femoral neck fracture but the rest of the femur did not appear to have any trauma. Pelvis and right hip demonstrated a displaced right femoral neck fracture. IMPRESSION: This is a 74-year-old male, who has some right-sided hemiparesis especially involving the right lower extremity with an acute displaced femoral neck fracture on the right side. He has other medical comorbidities such as aortic valve who is highly anticoagulated presently. I discussed the nature of this illness with him and recommendations for treatment. I would advise he be admitted to the hospitalist with plan to admit him and likely do a bridge treatment for his anticoagulation and then for his hip fracture I think this would be best treated with a hemiarthroplasty prosthesis for the right hip, which I explained to the patient in detail what this involves and doing this does carry a risk of course especially with medical comorbidities such that he has and includes risk of infection and damage to nerves and blood vessels, anesthetic complications, phlebitis, embolism, heart attack, dying, failure of the prosthesis over time, amongst other risks including fracture during surgery I discussed this with him, and I also explained that likely the surgery will not be able to be performed for a few days while we await his anticoagulants and the fact of Coumadin to decline so that we can perform the operation more safely. He understands that and we plan to proceed with surgical recommendations once he is felt to be medically optimized.
[2019-10-16] MEDS ORDERED: HYDROMORPHONE HCL 0.5 MG/ 0.5 ML SYRINGE (J1170 PER 1) IV ONE (16:00)
[2019-10-16 16:35] VITALS: BP 138/87
[2019-10-16] MEDS ORDERED: MIRALAX *UNIT DOSE* 17GM PACKET PO PRN (16:45)
[2019-10-16] MEDS ORDERED: MORPHINE 2 MG/ML 1ML VIAL (J2270) IV PRN (16:45)
--- NOTE | 2019-10-16 17:24 | HPEPDOC ---
[facility] Medical History & Physical Date of Admission Oct 16, 2019 Date of Service: Oct 16, 2019 Primary Care Physician: MAINE REYNA PA-C Attending Physician: Graciela Pryor MD History and Physical CHIEF COMPLAINT: Fall, right hip pain HISTORY OF PRESENT ILLNESS: The patient is a 74-year-old male with past history of coronary artery disease status post STEMI, hypertension, aortic valve replacement, CVA, pulmonary hypertension, thoracic aortic aneurysm (stable) who presented to [facility] emergency room after sustaining a fall this morning at 10 AM. The patient states he was walking and was distracted which left him unsteady on his feet. The patient walks with a cane and walker at baseline. He has been falling often at home and falls about once to 2 times per month. He states today he fell and landed on his right hip and also hit his head on the ground. He denies any loss of consciousness, increased weakness in the lower extremities, lightheadedness or dizziness preceding his fall. His right hip pain which occurred suddenly after the fall was described as severe, 10 out of 10, sharp, intermittent. Pain was worsened with movement and there was no alleviating factors. He denies shortness of breath, cough, chest pain, fever, chills, nausea, vomiting, diarrhea, blurry vision, loss of appetite at home. He does have a recent history of upper respiratory infection. His fall was witnessed by his who then called 911. In the emergency room the patient had several CT scans and x-rays. Femur x-ray showed femoral neck fracture, displaced on the right side. INR was found to be supratherapeutic at 3.8, no signs of acute bleeding. The patient's goal INR is between 2.5 and 3.5 for mechanical valve. Pain was severe and the patient was administered a dose of morphine and later 1 mg of IV Dilaudid which helped with his pain. Hemodynamically he was stable. ECG was abnormal; however, when compared to prior ECG this did not show much change. Orthopedic surgery saw the patient at the bedside in the emergency room who recommended hospital admission for possible surgery later this week. REVIEW OF SYSTEMS: CONSTITUTIONAL: Denies lack of energy, unexplained weight gain or weight loss, loss of appetite, fever, night sweats EYES: Denies eye drainage, eye pain, visual changes, dry/irritated eye EARS, NOSE, MOUTH, THROAT: Denies difficulty hearing, ringing in ears, mouth sores, loose teeth, sore throat, facial numbness or pain NECK: Denies swollen glands CARDIOVASCULAR: Denies irregular heartbeat, racing heart, chest pains, swelling of feet or legs, pain in legs with walking RESPIRATORY: Denies shortness of breath, night sweats, wheezing, sputum pr oduction, oxygen at home, coughing up blood, cough lasting > 1 month GASTROINTESTINAL: Denies abdominal pain, constipation, bloody stool, diarrhea, heartburn, nausea, vomiting GENITOURINARY: Denies painful urination, bloody urine, frequent urination, urgency, leaking urine, impotence MUSCULOSKELETAL: Denies muscle pain, leg swelling INTEGUMENTARY: Denies rash, itching, new skin lesion, change in existing skin lesion, hair loss or increase, breast changes. NEUROLOGICAL: Denies dizziness, numbness or tingling PSYCHIATRIC: Denies depression, anxiety, recurrent bad thoughts, mood swings, hallucinations PAST MEDICAL HISTORY: 1. Thoracic aortic aneurysm, stable 2. Hyperlipidemia 3. Hypertension 4. CAD status post an STEMI, STEMI 5. Aortic valve disease status post replacement 6. GERD 7. CVA with right-sided deficit 8. Chronic back pain 9. Pulmonary hypertension 10. History of tobacco use 11. ? CHF PAST SURGICAL HISTORY: 1. Aortic valve replacement, 1985 2. Hernia. 3. Tonsils and adenoids. 4. Left hand surgery. 5. Left knee arthroscopy. FAMILY HISTORY: Father: CAD, at 67 years old Mother: No medical history, of natural causes at 89 years old Siblings: Sister, unknown medical history, alive Paternal grandfather : cancer, type unknown. at 63 years old SOCIAL HISTORY: Prior smoker 1 pack per day for 62 years, quit 15 years ago. Smoked cigarettes. History of alcohol abuse, no recent use. Denies IV drug use. Primary care provider Medical provider is [place] Reyna and Dr. Velazco, freelance recruiter Dr. Alfaro. The patient ambulates normally with a cane or a walker but has been falling at home. He lives in [place] with his and is mostly independent outside of the walker. His pharmacy is [facility]. ALLERGIES: Please see below. HOME MEDICATIONS: Please see below. PHYSICAL EXAMINATION: CONSTITUTIONAL: Appears uncomfortable, AAO x 3 EYES: PERRLA, EOM intact HENT, MOUTH: Normocephalic, atraumatic, moist mucous membranes, NECK: SUPPLE, no JVD, no lymphadenopathy, no carotid bruit CV: Regular rate and rhythm, S1S2 normal, no murmurs/rubs/gallops CHEST: large vertical, well healed scar on chest. RESPIRATORY: Clear to auscultation bilaterally, no rales/rhonchi/wheezes GI: BS positive in 4 quadrants, soft, nontender, nondistended, no rebound or guarding, no organomegaly : Deferred MUSCULOSKELETAL: ROM not tested on RLE, straight-leg test normal on LLE. No cyanosis, clubbing, swelling, joint deformity, extremity edema. Dorsalis pedis and posterior tib pulses present bilaterally INTEGUMENTARY: Intact, no rashes, no lesions, no erythema NEUROLOGIC: Cranial Nerves II-XII are intact, rUE weakness chronic, unchanged from baseline 3-4/5 strength. No sensory deficits in any extremity. PSYCHIATRIC: Mood and affect are normal LABORATORY DATA: Please see below IMAGING: Chest x-ray: no acute pulmonary disease. EKG: showed sinus bradycardia, possible old inferior myocardial infarction and anteroseptal myocardial infarction of indeterminate age. Head CT: no acute findings. Neck CT: no acute findings for fractures. He had degenerative spondylosis that has been unchanged from a CT scan from December of 2018. Chest x-ray did show cardiomegaly and thoracic aortic aneurysm that is similar to prior x-rays. Femur x-ray: Pelvis and right hip demonstrated a displaced right femoral neck fracture. ASSESSMENT: 74-year-old male admitted under inpatient status for treatment of acute displaced femoral neck fracture. on the right side. PLAN: 1. Acute displaced femoral neck fracture, right. Orthopedic surgery consulted. RCRI, class IV risk. They discussed the risk associated with shauna-arthroplasty prosthesis for the right hip being placed. Will need to be bridged to heparin prior. Pain control with morphine Q6hrs for mod-severe pain. NWB on RLE at this time, changes in ambulation to be decided by ortho. PT/OT consulted to follow. Cardiology clearance needed with extensive cards history. Trop, BNP pending. 2. 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 Rosenthal pratherapeutic INR on Coumadin (goal 2.5-3.5 normally) at 3.98. Holding Coumadin for now and will check daily PT/INR. When closer to 1.5 INR, will discuss bridging to heparin products. 3. Mechanical fall, likely multifactorial to physical deconditioning and unsteadiness on his feet. PT/OT to resume after clearance by ortho. 4. CVA with right-sided hemiparesis. No new neurological deficits. On statin, not on ASA as is on coumadin. 5. CAD status post an STEMI, STEMI. ECG abnormal however, not much change from prior on file. Continue all cardiac medications. Troponin pending, telemetry monitoring. 6. Hypertension. Slightly elevated due to pain. Resuming home medications, monitoring on telemetry. 7. Hyperlipidemia. Continue home statin. 8. Thoracic Aortic aneurysm, stable. Please see CT above. Having it followed up on regularly as outpatient. 9. Depression. Stable. Denies homicidal or suicidal ideation. Continue with home duloxetine. 10. GERD. PPI 11. DVT px. SCDs only for now. When INR close to 1.5, bridge with heparin. DISPOSITION: Admitted under inpatient status. Plan is for possible surgery later this week. After treatment plan is for discharge to rehabilitation or home. Vital Signs Vital Signs Date Time Temp Pulse Resp B/P (MAP) Pulse Ox O2 Delivery O2 Flow Rate FiO2 10/16/19 15:55 22 99 10/16/19 15:45 60 154/74 (100) Room Air 10/16/19 12:28 97.4 Laboratory Data Labs 24H Laboratory Tests 2 10/16/19 12:39: Prothrombin Time 39.0H, Prothromb Time International Ratio 3.98, Activated Partial Thromboplast Time 41.8H 10/16/19 12:40: Immature Granulocyte % (Auto) 0.4, Neutrophils (%) (Auto) 81.9H, Lymphocytes (%) (Auto) 7.5L, Monocytes (%) (Auto) 9.1H, Eosinophils (%) (Auto) 0.8, Basophils (%) (Auto) 0.3, Neutrophils # (Auto) 8.3, Lymphocytes # (Auto) 0.8L, Monocytes # (Auto) 0.9H, Eosinophils # (Auto) 0.1, Basophils # (Auto) 0.0, Nucleated Red Blood Cells % (auto) 0.0, Anion Gap 6L, Glomerular Filtration Rate 55.2, Calcium Level 8.8 CBC/BMP Laboratory Tests 10/16/19 12:40 Home Medications Scheduled Amiodarone HCl (Amiodarone HCl) 200 Mg Tablet, 200 MG PO DAILY Atorvastatin Calcium (Atorvastatin Calcium) 40 Mg Tablet, 40 MG PO QPM Carvedilol (Carvedilol) 25 Mg Tablet, 37.5 MG PO BID Chlorthalidone (Chlorthalidone) 25 Mg Tablet, 12.5 MG PO DAILY Docusate Sodium (Stool Softener) 100 Mg Capsule, 100 MG PO TID may take up to 3 caps Duloxetine Hcl (Duloxetine HCl) 30 Mg Capsule.dr, 60 MG PO QPM Eplerenone (Eplerenone) 25 Mg Tablet, 12.5 MG PO DAILY Pantoprazole Sodium (Pantoprazole Sodium) 40 Mg Tablet.dr, 40 MG PO DAILY Warfarin Sodium (Warfarin Sodium) 4 Mg Tablet, 4 MG PO 4XWK sun,mon,wed,fri Warfarin Sodium (Warfarin Sodium) 4 Mg Tablet, 2 MG PO 3XW tue,thur,sat Allergies Coded Allergies: No Known Allergies (Unverified , 07/15/16) A-FIB/CHADSVASC A-FIB History Current/History of A-Fib/PAF?: No Current PO Anticoag Therapy: Yes Treatment Treatment ordered: Warfarin Reason Anticoagulant not given: Supratherapeutic Warfarin Graciela Pryor MD Oct 16, 2019 17:24
[2019-10-16 17:45] LABS: CK-MB VALUE MASS 1.2 NG/ML (<3.6); CPK CREATINE PHOSPHOKINASE 139 U/L (39-308); MB/CK RELATIVE INDEX 0.86 (< OR =4); NT-PRO BNP 161 PG/ML (<450); TROPONIN I < 0.02 NG/ML (< 0.10)
[2019-10-16] MEDS: CHLORTHALIDONE 12.5MG PER 1/2 TABLET PO SCH (17:46)
[2019-10-16] MEDS: MORPHINE 4 MG/ML 1ML VIAL/SYRINGE (J2270) IV PRN (18:19)
[2019-10-16] MEDS: DULoxetine 30 MG CAP (CYMBALTA) PO SCH (20:37)
[2019-10-16] MEDS: ATORVASTATIN 20 MG TAB PO SCH (20:37)
[2019-10-16] MEDS: SENNA 8.6 MG TAB (SENOKOT) PO SCH (20:37)
[2019-10-16] MEDS: CARVedilol 12.5 MG TAB PO SCH (20:37)
[2019-10-16] MEDS: DOCUSATE SODIUM 100 MG CAP PO SCH (20:37)
[2019-10-16 22:00] VITALS: BP 140/88
[2019-10-17] MEDS: MORPHINE 4 MG/ML 1ML VIAL/SYRINGE (J2270) IV PRN (01:49)
[2019-10-17 02:00] VITALS: BP 145/83
--- NOTE | 2019-10-17 05:33 | ECGEPIP ---
[facility] - ED Test Date: 2019-10-16 Pat Name: WILMA SHARMA Department: Room: - Gender: Male Dexigraph Operator: niharika : 1945 Requested By: Jason Avalos Order Number: [id number] Reading MD: Jason Carolina Measurements Intervals Dudley Rate: 55 P: 1 AL: 209 QRS: 4 QRSD: 118 T: 36 QT: 459 QTc: 441 Interpretive Statements SINUS BRADYCARDIA POSSIBLE INFERIOR MYOCARDIAL INFARCTION, PROBABLY OLD ANTEROSEPTAL MYOCARDIAL INFARCTION, OF INDETERMINATE AGE Electronically Signed on 10-17-2019 5:33:03 EDT by Jason Carolina
[2019-10-17 06:00] VITALS: BP 143/81
[2019-10-17 06:11] LABS: HEMATOCRIT 43.9 % (42.0-52.0); HEMOGLOBIN 14.3 g/dl (13.5-17.5); MEAN CORPUSCULAR HEMOGLOBIN 27.7 pg (27.0-33.0); MEAN CORPUSCULAR HGB CONC 32.6 g/dl (32.0-36.5); MEAN CORPUSCULAR VOLUME 85.1 fl (80.0-96.0); PLATELET COUNT, AUTOMATED 150 10^3/uL (150-450); RED BLOOD COUNT 5.16 10^6/uL (4.30-6.10); WHITE BLOOD COUNT 9.7 10^3/uL (4.0-10.0)
[2019-10-17 06:22] LABS: INR 4.45; PROTHROMBIN TIME 42.6 SECONDS (11.8-14.0)
[2019-10-17 06:35] LABS: CALCIUM LEVEL 8.3 MG/DL (8.8-10.2); CREATININE FOR GFR 1.27 MG/DL (0.70-1.30); GLOMERULAR FILTRATION RATE 58.7 (>42); POTASSIUM SERUM 3.1 MEQ/L (3.5-5.1)
[2019-10-17] MEDS ORDERED: POTASSIUM CHLORIDE 10 MEQ SR TABLET PO ONE (08:00)
[2019-10-17] MEDS: CHLORTHALIDONE 12.5MG PER 1/2 TABLET PO SCH (09:07)
[2019-10-17] MEDS: PANTOPRAZOLE 40MG TAB (PROTONIX) PO SCH (09:08)
[2019-10-17] MEDS: DOCUSATE SODIUM 100 MG CAP PO SCH ×2 (09:08→20:15)
[2019-10-17] MEDS: SPIRONOLACTONE 12.5MG PER 1/2 TABLET PO SCH (09:08)
[2019-10-17] MEDS: CARVedilol 12.5 MG TAB PO SCH ×2 (09:08→20:19)
[2019-10-17 10:00] VITALS: BP 153/85
[2019-10-17] MEDS ORDERED: PHYTONADIONE 1.25 MG 1/4 TAB PO ONE (10:00)
[2019-10-17 14:00] VITALS: BP 158/87
--- NOTE | 2019-10-17 15:24 | IPNPDOC ---
Date Seen The patient was seen on 10/17/19. Progress Note SUBJECTIVE: Pain mostly controlled with current regimen; however, with movement his pain can be very severe. INR was elevated at 4.45, increased from admission 3.98. He was given low-dose vitamin K 1.25 mg today. PT/INR daily. Creatinine improved from 1.34 to 1.27 and IV fluids were stopped. He was supplemented 50 mEq of potassium today for potassium level of 3.1. He denies chest pain, shortness of breath, nausea, vomiting, increased weakness or dizziness. OBJECTIVE: VITAL SIGNS: Please see below PHYSICAL EXAMINATION: CONSTITUTIONAL: Appears comfortable in bed, eating. AAO x 3 EYES: PERRLA, EOM intact, corrective lenses in place HENT, MOUTH: Normocephalic, atraumatic, moist mucous membranes, NECK: SUPPLE, no JVD, no lymphadenopathy, no carotid bruit CV: Regular rate and rhythm, S1S2 normal, no murmurs/rubs/gallops CHEST: large vertical, well healed scar on chest. RESPIRATORY: Clear to auscultation bilaterally, no rales/rhonchi/wheezes GI: BS positive in 4 quadrants, soft, nontender, nondistended, no rebound or guarding, no organomegaly : Deferred MUSCULOSKELETAL: ROM not tested on RLE, straight-leg test normal on LLE. Tenderness to palpation of right hip. No cyanosis, clubbing, swelling, joint deformity, extremity edema. Dorsalis pedis and posterior tib pulses present bilaterally INTEGUMENTARY: Intact, no rashes, no lesions, no erythema NEUROLOGIC: Cranial Nerves II-XII are intact, rUE weakness chronic, unchanged from baseline 3-4/5 strength. No sensory deficits in any extremity. PSYCHIATRIC: Mood and affect are normal LABORATORY DATA: Please see below IMAGING: No new imaging. ASSESSMENT: 74-year-old male admitted under inpatient status for treatment of acute right displaced femoral neck fracture. PLAN: 1. Acute displaced femoral neck fracture, right. Pain controlled, worse with movement in bed. Awaiting INR to be close to 2.5 or less to begin bridging in preparation for surgery. Orthopedic surgery following. RCRI, class IV risk. C/w morphine Q6hrs for mod-severe pain. NWB on RLE at this time, changes in ambulation to be decided by ortho. PT/OT consulted to follow. 2. 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 Supratherapeutic INR on Coumadin (goal 2.5-3.5 normally). Given 1.25 mg PO x 1 dose this AM. C/w holding coumadin, check daily PT/INR. When closer to 1.5 INR, will discuss bridging to heparin products. 3. Supratherapeutic INR. See plan above under problem #2. 4. Mechanical fall, likely multifactorial to physical deconditioning and unsteadiness on his feet. NWB at this time. PT/OT to resume after clearance by ortho. 5. CVA with right-sided hemiparesis. No new neurological deficits. On statin, not on ASA. 6. CAD status post an STEMI, STEMI. ECG abnormal however, not much change from prior on file. Continue all cardiac medications. Trop. 7. Hypertension. Stable since pain better controlled. C/w home medications, monitoring on telemetry. 8. Hyperlipidemia. C/w statin. 9. Thoracic Aortic aneurysm, stable. Please see CT above. Having it followed up on regularly as outpatient. 10. Depression. Stable. Denies homicidal or suicidal ideation. C/w duloxetine. 11. GERD. PPI 12. DVT px. SCDs only for now. When INR close to 1.5, bridge with heparin. DISPOSITION: Admitted under inpatient status. Plan is for possible surgery later this week if INR improves. After treatment plan is for discharge to rehabilitation or home. VS, I&O, 24H, Fishbone Vital Signs/I&O Vital Signs Date Time Temp Pulse Resp B/P (MAP) Pulse Ox O2 Delivery O2 Flow Rate FiO2 10/17/19 14:00 98.2 65 17 158/87 (110) 92 Room Air I&O- Last 24 Hours up to 6 AM 10/17/19 05:59 Intake Total 860 ml Output Total 390 ml Balance 470 ml Laboratory Data 24H LABS Laboratory Tests 2 10/16/19 16:59: Total Creatine Kinase 139, Creatine Kinase MB 1.2, Creatine Kinase MB Relative Index 0.86, Troponin I < 0.02, EP-Ybv-V-Type Natriuretic Peptide 161 10/17/19 05:53: Nucleated Red Blood Cells % (auto) 0.0, Prothrombin Time 42.6H, Prothromb Time International Ratio 4.45, Anion Gap 6L, Glomerular Filtration Rate 58.7, Calcium Level 8.3L CBC/BMP Laboratory Tests 10/17/19 05:53 Graciela Pryor MD Oct 17, 2019 15:24
[2019-10-17] MEDS: ACETAMINOPHEN TAB 650MG DOSE (2X325MG) PO PRN ×2 (16:44→18:21)
[2019-10-17 18:00] VITALS: BP 147/74
[2019-10-17] MEDS: SENNA 8.6 MG TAB (SENOKOT) PO SCH (20:15)
[2019-10-17] MEDS: ATORVASTATIN 20 MG TAB PO SCH (20:15)
[2019-10-17] MEDS: DULoxetine 30 MG CAP (CYMBALTA) PO SCH (20:15)
[2019-10-17 22:00] VITALS: BP 149/69
[2019-10-18 04:00] VITALS: BP 150/64
[2019-10-18 06:14] LABS: HEMATOCRIT 43.1 % (42.0-52.0); HEMOGLOBIN 14.6 g/dl (13.5-17.5); MEAN CORPUSCULAR HEMOGLOBIN 28.8 pg (27.0-33.0); MEAN CORPUSCULAR HGB CONC 33.9 g/dl (32.0-36.5); PLATELET COUNT, AUTOMATED 148 10^3/uL (150-450); RED BLOOD COUNT 5.07 10^6/uL (4.30-6.10); WHITE BLOOD COUNT 10.8 10^3/uL (4.0-10.0)
[2019-10-18] MEDS: ACETAMINOPHEN TAB 650MG DOSE (2X325MG) PO PRN ×3 (06:19→21:51)
[2019-10-18 06:25] LABS: INR 2.31; PROTHROMBIN TIME 25.2 SECONDS (11.8-14.0)
[2019-10-18 06:40] LABS: ALBUMIN 3.2 GM/DL (3.2-5.2); BILIRUBIN,TOTAL 1.6 MG/DL (0.2-1.0); CREATININE FOR GFR 1.28 MG/DL (0.70-1.30); GLOMERULAR FILTRATION RATE 58.2 (>42); POTASSIUM SERUM 3.2 MEQ/L (3.5-5.1); TOTAL PROTEIN 6.9 GM/DL (6.4-8.2)
[2019-10-18] MEDS ORDERED: POTASSIUM CHLORIDE 10 MEQ SR TABLET PO ONE (09:00)
[2019-10-18] MEDS: DOCUSATE SODIUM 100 MG CAP PO SCH ×2 (09:00→20:25)
[2019-10-18] MEDS: SPIRONOLACTONE 12.5MG PER 1/2 TABLET PO SCH (09:01)
[2019-10-18] MEDS: CARVedilol 12.5 MG TAB PO SCH ×2 (09:01→20:25)
[2019-10-18] MEDS: PANTOPRAZOLE 40MG TAB (PROTONIX) PO SCH (09:01)
[2019-10-18] MEDS: CHLORTHALIDONE 12.5MG PER 1/2 TABLET PO SCH (09:02)
[2019-10-18 10:00] VITALS: BP 145/75
[2019-10-18 13:15] VITALS: BP 139/72
[2019-10-18] MEDS ORDERED: ENOXAPARIN 100MG/1ML SYRINGE (J1650) SC ONE ×2 (14:00→21:00)
[2019-10-18 14:07] VITALS: BP 145/74
--- NOTE | 2019-10-18 16:54 | IPNPDOC ---
Date Seen The patient was seen on 10/18/19. Progress Note SUBJECTIVE: Slightly confused this AM, UA ordered, awaiting results. Answering appropriately for me this AM on exam. Ortho to see today. OBJECTIVE: VITAL SIGNS: Please see below PHYSICAL EXAMINATION: CONSTITUTIONAL: Appears comfortable in bed, AAO x 3 EYES: PERRLA, EOM intact, corrective lenses in place HENT, MOUTH: Normocephalic, atraumatic, moist mucous membranes, NECK: SUPPLE, no JVD, no lymphadenopathy, no carotid bruit CV: Regular rate and rhythm, S1S2 normal, no murmurs/rubs/gallops CHEST: large vertical, well healed scar on chest. RESPIRATORY: Clear to auscultation bilaterally, no rales/rhonchi/wheezes GI: BS positive in 4 quadrants, soft, nontender, slightly distended abdomen, no rebound or guarding, no organomegaly : Deferred MUSCULOSKELETAL: ROM not tested on RLE, straight-leg test normal on LLE. Tenderness to palpation of right hip. No cyanosis, clubbing, swelling, joint deformity, extremity edema. Dorsalis pedis and posterior tib pulses present bilaterally INTEGUMENTARY: Intact, no rashes, no lesions, no erythema NEUROLOGIC: Cranial Nerves II-XII are intact, rUE weakness chronic, unchanged from baseline 3-4/5 strength. No sensory deficits in any extremity. PSYCHIATRIC: Mood and affect are normal LABORATORY DATA: Please see below IMAGING: No new imaging. ASSESSMENT: 74-year-old male admitted under inpatient status for treatment of acute right displaced femoral neck fracture. PLAN: 1. Acute displaced femoral neck fracture, right. INR 2.3 s/p vitaminK, adding lovenox therapeutic dosing. Pain controlled, worse with movement in bed. Orthopedic surgery following. C/w morphine Q6hrs for mod-severe pain. NWB on RLE at this time, changes in ambulation to be decided by ortho. Bowel regimen added. PT/OT consulted to follow. 2. AMS as per nursing staff. AAO x 3 for me. WBC 10, afebrile, Hemodynamically stable. Will order TSH, ammonia level, trop, UA ordered. Monitoring closely. 3. 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 INR and plan for anticoagulation above. C/w holding coumadin, check daily PT/INR. 4. Mechanical fall, likely multifactorial to physical deconditioning and unsteadiness on his feet. NWB at this time. PT/OT to resume after clearance by ortho. 5. CVA with right-sided hemiparesis. No new neurological deficits. On statin, not on ASA. 6. CAD status post an STEMI, STEMI. ECG abnormal however, not much change from prior on file. Continue all cardiac medications. Trop. 7. Hypertension. Stable since pain better controlled. C/w home medications, monitoring on telemetry. 8. Hyperlipidemia. C/w statin. 9. Thoracic Aortic aneurysm, stable. Please see CT above. Having it followed up on regularly as outpatient. 10. Depression. Stable. Denies homicidal or suicidal ideation. C/w duloxetine. 11. GERD. PPI 12. DVT px. SCDs, lovenox BID. DISPOSITION: Admitted under inpatient status. Plan is for surgery at some point. After surgery plan is for discharge to rehabilitation or home. VS, I&O, 24H, Fishbone Vital Signs/I&O Vital Signs Date Time Temp Pulse Resp B/P (MAP) Pulse Ox O2 Delivery O2 Flow Rate FiO2 10/18/19 14:07 98.0 69 16 145/74 (97) 91 Room Air I&O- Last 24 Hours up to 6 AM 10/18/19 06:00 Intake Total 600 ml Output Total 1040 ml Balance -440 ml Laboratory Data 24H LABS Laboratory Tests 2 10/18/19 05:50: Nucleated Red Blood Cells % (auto) 0.0, Prothrombin Time 25.2H, Prothromb Time International Ratio 2.31, Anion Gap 7L, Glomerular Filtration Rate 58.2, Calcium Level 9.0, Total Bilirubin 1.6H, Aspartate Amino Transf (AST/SGOT) 27, Alanine Aminotransferase (ALT/SGPT) 22, Alkaline Phosphatase 77, Total Protein 6.9, Albumin 3.2, Albumin/Globulin Ratio 0.86L 10/18/19 10:18: Urine Color YELLOW, Urine Appearance CLEAR, Urine pH 5.0, Urine Specific [place] 1.023, Urine Protein NEGATIVE, Urine Glucose (UA) NEGATIVE, Urine Ketones NEGATIVE, Urine Blood 1+H, Urine Nitrite NEGATIVE, Urine Bilirubin NEGATIVE, Urine Urobilinogen 2.0H, Urine Leukocyte Esterase NEGATIVE, Urine WBC (Auto) 1, Urine RBC (Auto) 8H, Urine Hyaline Casts (Auto) 0, Urine Bacteria (Auto) NEGATIVE, Urine Squamous Epithelial Cells 0, Urine Mucus (Auto) SMALL, Urine Sperm (Auto) CBC/BMP Laboratory Tests 10/18/19 05:50 Graciela Pryor MD Oct 18, 2019 16:54
[2019-10-18 17:31] LABS: NT-PRO BNP 419 PG/ML (<450); TROPONIN I < 0.02 NG/ML (< 0.10)
--- NOTE | 2019-10-18 17:43 | REP ---
Portable chest x-ray: Single view. History: Decreased oxygen saturation. Altered mental status. Comparison chest x-ray: October 16, 2019. Findings: Patient is status post aortic valve replacement. Cardiomegaly is observed. The patient is rotated somewhat to the left for the current radiograph. Pulmonary vasculature is cephalized. No pleural effusion is seen. No infiltrate is seen. Impression: Cardiomegaly with cephalization. Status post aortic valve replacement. No infiltrate seen. Electronically Signed by Sarwat Helm MD 10/19/2019 08:37 A
--- NOTE | 2019-10-18 17:45 | REP ---
KUB: Two views. History: Distended abdomen. Findings: Supine views of the abdomen demonstrate several loops of air-filled mildly prominent small bowel in the left mid to lower abdomen. There is air and stool in a nondistended colon proximally and distally. Psoas margins are symmetric. No mass or organomegaly is seen. There are degenerative changes in the lumbar spine and some vascular calcifications noted. Impression: Nonspecific small bowel loops in the left lower abdomen. Question mild ileus. Otherwise negative. Electronically Signed by Sarwat Helm MD 10/19/2019 08:37 A
--- NOTE | 2019-10-18 19:32 | REPVR ---
PROCEDURE INFORMATION: Exam: CT Head Without Contrast Exam date and time: 10/18/2019 7:16 PM Age: 74 years old Clinical indication: Altered mental status/memory loss; Additional info: AMS TECHNIQUE: Imaging protocol: Computed tomography of the head without contrast. Radiation optimization: All CT scans at this facility use at least one of these dose optimization techniques: automated exposure control; mA and/or kV adjustment per patient size (includes targeted exams where dose is matched to clinical indication); or iterative reconstruction. COMPARISON: CT Head without contrast 10/16/2019 12:15 PM FINDINGS: Brain: Chronic appearing left frontal as well as right occipital infarcts. The brain demonstrates generalized volume loss. Deep white matter hypodensities most likely representing chronic small vessel ischemic change. A chronic appearing lacunar infarct in the right external capsule. Focal, chronic appearing lacunar infarct in the left caudate nucleus. The infarcts were previously demonstrated. Ventricles: The ventricles appear mildly enlarged in keeping with volume loss. Bones/joints: Unremarkable. No acute fracture. Sinuses: Visualized sinuses are unremarkable. No fluid levels. Mastoid air cells: Visualized mastoid air cells are well aerated. Soft tissues: Unremarkable. IMPRESSION: No acute intracranial abnormality seen. Electronically signed by: Georgia Fitzgerald On 10/18/2019 19:32:43 PM
[2019-10-18] MEDS: ENOXAPARIN 100MG/1ML SYRINGE (J1650) SC SCH (20:24)
[2019-10-18] MEDS: DULoxetine 30 MG CAP (CYMBALTA) PO SCH (20:25)
[2019-10-18] MEDS: ATORVASTATIN 20 MG TAB PO SCH (20:25)
[2019-10-18] MEDS: SENNA 8.6 MG TAB (SENOKOT) PO SCH (20:26)
[2019-10-18 22:00] VITALS: BP 147/75
[2019-10-18] MEDS ORDERED: QUEtiapine FUMARATE 25 MG TAB PO ONE (23:00)
[2019-10-19 06:00] VITALS: BP 148/78
[2019-10-19] MEDS ORDERED: ceFAZolin SOD 2 GM in IV 1 EA IV ONE (06:00)
[2019-10-19 06:47] LABS: HEMATOCRIT 41.3 % (42.0-52.0); HEMOGLOBIN 13.4 g/dl (13.5-17.5); MEAN CORPUSCULAR HEMOGLOBIN 27.7 pg (27.0-33.0); MEAN CORPUSCULAR HGB CONC 32.4 g/dl (32.0-36.5); MEAN CORPUSCULAR VOLUME 85.3 fl (80.0-96.0); PLATELET COUNT, AUTOMATED 141 10^3/uL (150-450); RED BLOOD COUNT 4.84 10^6/uL (4.30-6.10); WHITE BLOOD COUNT 9.2 10^3/uL (4.0-10.0)
[2019-10-19 06:58] LABS: INR 1.8; PROTHROMBIN TIME 20.7 SECONDS (11.8-14.0)
[2019-10-19 07:11] LABS: ALBUMIN 2.8 GM/DL (3.2-5.2); ALT/SGPT 25 U/L (12-78); BILIRUBIN,TOTAL 1.1 MG/DL (0.2-1.0); BLOOD UREA NITROGEN 23 MG/DL (7-18); CALCIUM LEVEL 8.3 MG/DL (8.8-10.2); CARBON DIOXIDE LEVEL 33 MEQ/L (21-32); CHLORIDE LEVEL 100 MEQ/L (98-107); CREATININE FOR GFR 1.24 MG/DL (0.70-1.30); GLOMERULAR FILTRATION RATE > 60.0 (>42); GLUCOSE, FASTING 114 MG/DL (70-100); POTASSIUM SERUM 3.3 MEQ/L (3.5-5.1); SODIUM LEVEL 139 MEQ/L (136-145); TOTAL PROTEIN 6.1 GM/DL (6.4-8.2)
[2019-10-19] MEDS: POTASSIUM CHLORIDE 10 MEQ SR TABLET PO SCH ×3 (09:20→20:16)
[2019-10-19] MEDS: CARVedilol 12.5 MG TAB PO SCH ×2 (09:21→20:16)
[2019-10-19] MEDS: CHLORTHALIDONE 12.5MG PER 1/2 TABLET PO SCH (09:21)
[2019-10-19] MEDS: PANTOPRAZOLE 40MG TAB (PROTONIX) PO SCH (09:22)
[2019-10-19] MEDS: DOCUSATE SODIUM 100 MG CAP PO SCH ×2 (09:22→20:16)
[2019-10-19] MEDS: SPIRONOLACTONE 12.5MG PER 1/2 TABLET PO SCH (09:22)
[2019-10-19] MEDS: ENOXAPARIN 100MG/1ML SYRINGE (J1650) SC SCH (10:28)
[2019-10-19] MEDS ORDERED: LACTULOSE 20 GM/30 ML SYRUP UD PO ONE ×2 (11:00→16:00)
--- NOTE | 2019-10-19 11:04 | IPN ---
DATE: 10/19/2019 With the patient's significant past medical and cardiac history, he has been advised by the medical and cardiologic teams that they want to restart Coumadin the day of surgery and potentially bridge with heparin. That is completely reasonable for an orthopedic standpoint. I will follow their lead with regards to his anticoagulation. I have no problems with this starting the day of. It does put the patient at high risk of having a postoperative hematoma, however I believe his cardiac status and anticoagulation takes priority.
[2019-10-19] MEDS: ACETAMINOPHEN TAB 650MG DOSE (2X325MG) PO PRN (11:06)
[2019-10-19 14:16] VITALS: BP 138/74
[2019-10-19] MEDS ORDERED: PERCOCET 5MG/325MG TAB PO PRN (16:00)
[2019-10-19] MEDS ORDERED: MORPHINE 2 MG/ML 1ML VIAL (J2270) IV PRN (16:00)
--- NOTE | 2019-10-19 16:09 | IPNPDOC ---
Date Seen The patient was seen on 10/19/19. Progress Note SUBJECTIVE: Awake and alert today, no hallucinations or increased confusion like yesterday. ? mild ileus on abd XR but no n/v, BS +, passing some gas. No BM yet. Started on IVFs, stopped high dose morphine and started PO oxycodone/acetaminophen. Cardiac clearance given for high risk surgery but will need to ensure restarting anticoagulation as soon as possible after. Surgery in the AM. Patient denies chest pain, fevers, chills. OBJECTIVE: VITAL SIGNS: Please see below PHYSICAL EXAMINATION: CONSTITUTIONAL: Appears comfortable in bed, AAO x 3 EYES: PERRLA, EOM intact, corrective lenses in place HENT, MOUTH: Normocephalic, atraumatic, moist mucous membranes, NECK: SUPPLE, no JVD, no lymphadenopathy, no carotid bruit CV: Regular rate and rhythm, S1S2 normal, no murmurs/rubs/gallops CHEST: large vertical, well healed scar on chest. RESPIRATORY: Clear to auscultation bilaterally, no rales/rhonchi/wheezes GI: Distended abdomen but BS positive in 4 quadrants, nontender, no rebound or guarding, no organomegaly : Deferred MUSCULOSKELETAL: ROM not tested on RLE, straight-leg test normal on LLE. No cyanosis, clubbing, swelling, joint deformity, extremity edema. DP, PT pulses present bilaterally INTEGUMENTARY: Intact, no rashes, no lesions, no erythema NEUROLOGIC: Cranial Nerves II-XII are intact, RUE weakness chronic, baseline 3- 4/5 strength. No sensory deficits PSYCHIATRIC: Mood and affect are normal LABORATORY DATA: Please see below IMAGING: CXR: Cardiomegaly with cephalization. Status post aortic valve replacement. No infiltrate seen. Abd XR: Nonspecific small bowel loops in the left lower abdomen. Question mild ileus. Otherwise negative CT head: No acute intracranial abnormality seen. ASSESSMENT: 74-year-old male admitted under inpatient status for treatment of acute right displaced femoral neck fracture, surgery in the AM. PLAN: 1. Acute displaced femoral neck fracture, right. Surgery in the AM on 10/20/19. INR 1.8 today, likely will be 1.5 or lower in the AM. Lovenox for bridge therapy in place. Pain improved, deescalated pain regimen to morphine low dose with oxycodone/acetaminophen PRN. Increase intensity of bowel regimen, PT/OT to follow. NPO after midnight. 2. AMS, improved. Transient and unknown cause at this time. TSH, ammonia, trop, UA neg or wnl. 3. 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 Need to be very careful about restarting anticoagulation ELIN after surgery. Will likely be able to start coumadin night of surgery and resume heparin products 12 hrs after surgery. Risk for hematoma as described by orthopedic but risk of clot formation is high. Check daily INR. 4. Mechanical fall, likely multifactorial to physical deconditioning and unsteadiness on his feet. PT/OT to resume after surgery and clearance by ortho. 5. Mild ileus, questionable. Started IVFs, deescalated pain medication further. BS +, no n/v. Monitor output carefully. 6. CAD. ECG abnormal however, not much change from prior on file. Continue all cardiac medications. Trop. 7. Hypertension. Stable since pain better controlled. C/w home medications, monitoring on telemetry. 8. Hyperlipidemia. C/w statin. 9. Thoracic Aortic aneurysm, stable. Please see CT above. Having it followed up on regularly as outpatient. 10. CVA with right-sided hemiparesis. No new neurological deficits. On statin, not on ASA. 11. GERD. PPI 12. Depression. Stable. Denies homicidal or suicidal ideation. C/w duloxetine. 13. DVT px. SCDs, No AC after midnight. Resume AC after surgery. DISPOSITION: Admitted under inpatient status. Plan is for surgery at some point. After surgery plan is for discharge to rehabilitation or home. VS, I&O, 24H, Fishbone Vital Signs/I&O Vital Signs Date Time Temp Pulse Resp B/P (MAP) Pulse Ox O2 Delivery O2 Flow Rate FiO2 10/19/19 14:16 98.1 72 20 138/74 (95) 96 10/19/19 06:00 Room Air I&O- Last 24 Hours up to 6 AM 10/19/19 06:00 Intake Total 835 ml Output Total 150 ml Balance 685 ml Laboratory Data 24H LABS Laboratory Tests 2 10/18/19 16:51: Ammonia < 10 10/18/19 16:52: Troponin I < 0.02, [id number]-Type Natriuretic Peptide 419, Thyroid Stimulating Hormone (TSH) 1.510 10/19/19 06:34: Nucleated Red Blood Cells % (auto) 0.0, Prothrombin Time 20.7H, Prothromb Time International Ratio 1.80, Anion Gap 6L, Glomerular Filtration Rate > 60.0, Calcium Level 8.3L, Total Bilirubin 1.1H, Aspartate Amino Transf (AST/SGOT) 38H, Alanine Aminotransferase (ALT/SGPT) 25, Alkaline Phosphatase 74, Total Protein 6.1L, Albumin 2.8L, Albumin/Globulin Ratio 0.85L CBC/BMP Laboratory Tests 10/19/19 06:34 Graciela Pryor MD Oct 19, 2019 16:09
[2019-10-19] MEDS: NS 1,000 ML IV SCH (17:18)
--- NOTE | 2019-10-19 19:24 | CR ---
DATE OF CONSULTATION: 10/19/2019 CARDIOLOGY CONSULTATION: CONSULTATION REPORT FOR: Dr. Graciela Shahid, Hospitalist. COPY TO: Dr. Lafleur, Orthopedics; Maine Mccarty PA-C, Primary provider INDICATION: Preoperative cardiac clearance/known cardiac disease. 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 Walks with a quad cane at a slow pace, no more than 100 feet at any one time. Last seen in my office on 10/03/2019. On his current level of activity, he had been free of any cardiovascular complaint. Home blood pressures apparently have been controlled and remains free of lightheadedness. Frustratingly with his ongoing right leg pronounced weakness has had multiple falls without prior injury but on 10/16/2019 while walking indoors, he apparently lost his balance, fell and sustained a right femoral neck fracture. He is admitted to the hospitalist service and his warfarin oral anticoagulant therapy was discontinued with bridge Lovenox therapy. Tentatively scheduled for his hip repair once his prothrombin time (PT)/international normalized ratio (INR) is 1.5. We anticipate this will be tomorrow morning. Cardiology consultation was requested because of his prior history. Again, he remains free of any effort-related chest discomfort, shortness of breath, awareness of his heart action, or syncope. No history of claudication. No symptom to suggest thromboembolic event or hemorrhagic complication at this time. KNOWN PAST CARDIAC DISEASE/EVENTS/TESTS: Portable upright chest x-ray May 2018 performed at [facility] in [place] for possible pneumonia reportedly showed heart of normal size, atherosclerotic calcification of the aortic arch, prosthetic aortic valve, and consolidation of the lung base with blunting of both costophrenic angles. Degenerative and scoliotic changes of his thoracic spine and sternotomy wire sutures. EKG dating back to at least 09/04/2018 showed sinus rhythm at rate 77 beats per minute with left atrial conduction disturbance and first-degree atrioventricular (AV) block. Voltages were low with slow precordial R wave progression and small inferior Q waves in keeping with his body habitus versus [place] disease. Could not rule out prior septal/inferior injury. ST-T wave abnormalities infraapically. His rhythm had changed from atrial fibrillation 06/03/2018. Last echocardiogram 11/07/2018 showed mild left ventricular hypertrophy with normal wall motion, moderate left atrial enlargement with impaired left ventricular (LV) diastolic function with borderline left atrial pressure elevation. Right heart chambers were mildly dilated with mild pulmonary hypertension, mildly dilated inferiore vena cava (IVC) but normal respiratory collapse against an elevated central venous pressure. His mechanical prosthetic aortic valve was functioning appropriately with dimensionless index of 0.45. He has a mild to moderate dilatation of his aortic root and proximal aorta but these were not significantly changed from a study performed 2013. There was mild mitral annular calcification with very mild mitral insufficiency. No pericardial effusion. CARDIAC PROCEDURES: Aortic valve replacement (Molly-Shiley) performed at [facility] in [place] in light of severe aortic stenosis. Cardiac catheterization at [facility] in [place] 06/02/2018 performed because of suspected acute coronary syndrome showed nonobstructive coronary disease except for a very distal 95% right coronary artery (RCA) stenosis, continued medical therapy was advised. CORONARY RISK FACTORS: Male gender, hypertension, hypercholesterolemia, remote longstanding smoking history, family history of premature coronary artery disease. No history of obesity, diabetes, or carotid vascular disease. OTHER MEDICAL HEALTH: Remote tonsillectomy and hand surgery, right inguinal herniorrhaphy 2000, left knee arthroscopic surgery 1997, cerebral vascular accident as mentioned 06/05/2018. SYSTEMS REVIEW: Had been feeling well without fever, chills, or weight loss. Somewhat reduced visual acuity. No significant hearing problems. No cough, sputum production. Good appetite with no dysphagia, abdominal pain, change in bowel habit, or gastrointestinal (GI) bleeding. Persistent right-sided weakness as mentioned. All other systems review is negative. MEDICATIONS: At home he takes: - carvedilol 37.5 mg twice a day - chlorthalidone 12.5 mg daily - eplerenone 12.5 mg daily - atorvastatin 40 mg at bedtime - warfarin as directed by his primary provider - amiodarone 200 mg by mouth daily - Protonix 40 mg daily - stool softener 100 mg daily - duloxetine 60 mg daily ALLERGIES: None known. PHYSICAL EXAMINATION: CONSTITUTIONAL: Pleasant elderly male of medium body build with obvious right-sided weakness and internal rotation and shortening of his right leg, currently comfortable lying in bed. VITAL SIGNS: Heart rate 70 beats per minute and regular, blood pressure 138/74 supine, respiratory rate 18, per minute oxygen saturation 96% on room air. He is afebrile. Weight 201 pounds. Height 68 inches. Body mass index (BMI) 30.5. EYES: Normal conjunctivae and lids, senile arcus but no xanthelasma. EARS, NOSE AND THROAT (ENT)/MOUTH: Some dental decay with multiple missing teeth. Normal palate and oral moisture. No central cyanosis. NECK: Trachea midline. Thyroid not enlarged. Jugular veins at the level of the sternal angle. RESPIRATORY: Normal-appearing chest configuration and chest expansion with well-healed sternotomy incision. Good air entry over both lung aguilar with subtle bibasilar inspiratory crepitations more on the left than the right, slight prolongation of expiration but no audible wheeze. CARDIOVASCULAR: Apical impulse not palpable. Normal S1 with crisp, loud mechanical prosthetic aortic closure. No audible gallops. Has a grade 2/6 systolic ejection murmur heard maximally in the right base radiating to the base of his neck as well as along the left sternal border. No diastolic murmur. Normal carotic upstrokes and volume. Bruit transmitted from the precordium as mentioned. Abdominal aorta not palpable. No abdominal bruits. Femoral and pedal pulses: Femoral pulses were normal. Pedal pulses were slightly difficult to palpate because of dependent edema. Has 1 mm pitting edema one-third up on the left and two-thirds up on the right side. EXTREMITIES: No clubbing, peripheral cyanosis, or splinter hemorrhages. GASTROINTESTINAL (GI): Soft, nontender abdomen with no hepatosplenomegaly. RECTAL: Examination not indicated. MUSCULOSKELETAL: Obviously unable to assess gait at this time. Obvious right leg shortening with internal rotation related to his fracture. No other obvious joint deformities. Spine was not examined. SKIN: No rashes, ecchymotic lesions, pallor, or icterus at this time. NEUROLOGIC/PSYCHIATRIC: Was orientated to person. Mood appeared to be somewhat depressed. Upper extremity and facial movements appear to be fairly symmetrical and normal. INVESTIGATIONS: Admission EKG 10/16/2019 at 12:56 p.m. showed sinus bradycardia at 55 beats per minute with first-degree AV block, left atrial conduction disturbance, low voltages with poor precordial R wave progression, QRS pattern from V1 through to V4, and small Q waves in III and AVF. Findings not dramatically changed from May of 2018. As mentioned, his echocardiogram in 2019 showed normal symmetrical wall thickening and wall motion against prior infarctions. This EKG appearance was not changed from our last tracing in our office. Telemetry monitoring in the hospital failed to show any ectopic activity on his current amiodarone and carvedilol therapy. Chest x-ray: Portable upright study performed 10/18/2019 was reviewed independently and shows a slightly rotated study but obvious cardiomegaly with a tortuous thoracic aortic with some calcification of the aortic arch. It also shows his obvious Molly-Shiley mechanical prosthetic aortic valve with sternotomy wire sutures. Pulmonary vasculature appeared to be slightly prominent. This may be related to a degree of under penetration. No clearly localized infiltrate or pleural effusion. BLOOD WORK: Studies performed today showed a hemoglobin of 13.4, normal white blood cell count and platelet count. PT/INR was 20.7/1.8 off his oral anticoagulant warfarin since admission. Had been given one dose of vitamin K 1.25 mg by mouth on 10/17/2019. Chemistry today showed a potassium of 3.3. He was given one dose of potassium chloride 40 mEq followed by KCl 20 mEq three times a day. Slight metabolic alkalosis, BUN was 23, creatinine 1.24, fasting glucose 114, total bilirubin was slightly elevated at 1.1 but this is actually down from yesterday. Other liver function studies were normal, although albumin was 2.8. Troponin I level was negative. Current pro BNP level was normal at 419. Ultra-sensitive TSH was normal at 1.5. Urinalysis was positive for microscopic hematuria but no pyuria. IMPRESSION/PLAN: 1. Cardiac clearance/preoperative cardiovascular examination: Our only real concern is perioperative anticoagulation with his old mechanical prosthetic valve and prior history of cerebral embolic event with prior holding of his anticoagulant therapy. I have discussed this carefully with Dr. Pryor and I understand his orthopedic surgeon is also sensitive to this. He is currently being bridged. With respect to prophylaxis for subacute bacterial endocarditis (SBE) risk for his orthopedic procedure, Ancef 2 grams preoperatively and perhaps 1 gram IV eight hours following should be sufficient. I am assuming similar antibiotic therapy would be administered anyway by orthopedics. His customary medications should be continued perioperatively. 2. Heart failure (diastolic dysfunction/chronic): Remains compensated. He should be continued on a modest salt and fluid intake restriction if possible. His combination of chlorthalidone and eplerenone 12.5 daily should be continued (the latter drug is not on our hospital formulary so spironolactone has been substituted temporarily). He is receiving supplemental KCl for hypokalemia. I anticipate his chemistry will be in balance with replacement KCl by tomorrow morning. 3. Paroxysmal atrial fibrillation: Has remained free of symptomatic arrhythmia on his amiodarone and carvedilol. I have reordered his amiodarone to prevent atrial fibrillation perioperatively. He has tolerated this medication without adverse effect. Oral anticoagulation temporarily on hold as mentioned above. 4. Premature ventricular contractions (PVCs): Previous Holter monitor study had shown very frequent low-grade ventricular ectopic activity which has been managed with his amiodarone quite successfully. 5. Abnormal EKG: Has a first-degree atrioventricular (AV) block, low voltages and poor precordial R wave progression suggestive of prior septal infarction but this is not the case. These findings are related to his body habitus and prior smoking history. Has essentially nonobstructive coronary disease. No significant EKG change from our last tracing last month. Troponin I level was negative. 6. Hypertensive heart disease (benign with heart failure): Current blood pressures remain controlled on his combination carvedilol and low-dose chlorthalidone and eplerenone. Degree of hypokalemia being corrected as mentioned above. 7. Nonrheumatic aortic valve disorder/history of severe aortic stenosis/status post aortic valve placement (mechanical): Last echocardiogram showed appropriate prosthetic function. Current auscultatory findings were unchanged. No symptoms or signs of endocarditis. Endocarditis prophylaxis and anticoagulation as mentioned above. I will be discussing his case with Dr. Isaacs, [facility], cardiology covering this weekend. I anticipate he will be able to tolerate his orthopedic procedure with low risk from the cardiovascular standpoint. Our chief concern is his anticoagulation as mentioned. Thank you for allowing me to participate in the care of your patient. JOE
[2019-10-19 20:12] VITALS: BP 154/89
[2019-10-19] MEDS: DULoxetine 30 MG CAP (CYMBALTA) PO SCH (20:15)
[2019-10-19] MEDS: SENNA 8.6 MG TAB (SENOKOT) PO SCH (20:15)
[2019-10-19] MEDS: ATORVASTATIN 20 MG TAB PO SCH (20:16)
[2019-10-19] MEDS ORDERED: ENOXAPARIN 100MG/1ML SYRINGE (J1650) SC ONE (21:00)
[2019-10-20 02:00] VITALS: BP 132/72
[2019-10-20] MEDS: NS 1,000 ML IV SCH (04:29)
[2019-10-20 06:08] VITALS: BP 128/71
[2019-10-20 06:48] LABS: HEMOGLOBIN 12.2 g/dl (13.5-17.5); MEAN CORPUSCULAR HEMOGLOBIN 27.3 pg (27.0-33.0); MEAN CORPUSCULAR HGB CONC 32.1 g/dl (32.0-36.5); PLATELET COUNT, AUTOMATED 174 10^3/uL (150-450); RED BLOOD COUNT 4.47 10^6/uL (4.30-6.10); WHITE BLOOD COUNT 9.5 10^3/uL (4.0-10.0)
[2019-10-20 06:58] LABS: INR 1.64; PROTHROMBIN TIME 19.1 SECONDS (11.8-14.0)
[2019-10-20 07:21] LABS: ALBUMIN 2.6 GM/DL (3.2-5.2); ALT/SGPT 27 U/L (12-78); BILIRUBIN,TOTAL 0.9 MG/DL (0.2-1.0); BLOOD UREA NITROGEN 24 MG/DL (7-18); CALCIUM LEVEL 8.3 MG/DL (8.8-10.2); CARBON DIOXIDE LEVEL 31 MEQ/L (21-32); CHLORIDE LEVEL 102 MEQ/L (98-107); CREATININE FOR GFR 1.14 MG/DL (0.70-1.30); GLOMERULAR FILTRATION RATE > 60.0 (>42); GLUCOSE, FASTING 119 MG/DL (70-100); POTASSIUM SERUM 3.5 MEQ/L (3.5-5.1); SODIUM LEVEL 139 MEQ/L (136-145); TOTAL PROTEIN 5.9 GM/DL (6.4-8.2)
[2019-10-20] MEDS: DOCUSATE SODIUM 100 MG CAP PO SCH ×2 (09:00→20:39)
[2019-10-20] MEDS: SPIRONOLACTONE 12.5MG PER 1/2 TABLET PO SCH (09:48)
[2019-10-20] MEDS: CHLORTHALIDONE 12.5MG PER 1/2 TABLET PO SCH (09:48)
[2019-10-20] MEDS: PANTOPRAZOLE 40MG TAB (PROTONIX) PO SCH (09:49)
[2019-10-20] MEDS: AMIODARONE 200 MG TAB (PACERONE) PO SCH (09:49)
[2019-10-20] MEDS: POTASSIUM CHLORIDE 10 MEQ SR TABLET PO SCH ×3 (09:49→20:40)
[2019-10-20] MEDS: CARVedilol 12.5 MG TAB PO SCH ×2 (09:50→21:05)
[2019-10-20 10:00] VITALS: BP 121/65
[2019-10-20 12:17] LABS: INR 1.62
[2019-10-20] MEDS ORDERED: ENOXAPARIN 100MG/1ML SYRINGE (J1650) SC ONE ×2 (13:00→23:00)
--- NOTE | 2019-10-20 15:52 | IPNPDOC ---
Date Seen The patient was seen on 10/20/19. Progress Note SUBJECTIVE: No acute complaints by patient. Postponing surgery due to INR not low enough and patient needing to resume anticoagulation. Large BM over the past 24 hrs, on bowel regimen. Stopping IVFs today. Surgery in the AM. Patient denies chest pain, fevers, chills. OBJECTIVE: VITAL SIGNS: Please see below PHYSICAL EXAMINATION: CONSTITUTIONAL: Appears comfortable in bed, AAO x 3 EYES: PERRLA, EOM intact, corrective lenses in place HENT, MOUTH: Normocephalic, atraumatic, moist mucous membranes, NECK: SUPPLE, no JVD, no lymphadenopathy, no carotid bruit CV: Regular rate and rhythm, S1S2 normal, no murmurs/rubs/gallops CHEST: large vertical, well healed scar on chest. RESPIRATORY: Clear to auscultation bilaterally, no rales/rhonchi/wheezes GI: Distended abdomen but BS positive in 4 quadrants, nontender, no rebound or guarding, no organomegaly : Deferred MUSCULOSKELETAL: ROM not tested on RLE, straight-leg test normal on LLE. No cyanosis, clubbing, swelling, joint deformity, extremity edema. DP, PT pulses present bilaterally INTEGUMENTARY: Intact, no rashes, no lesions, no erythema NEUROLOGIC: Cranial Nerves II-XII are intact, RUE weakness chronic, baseline 3-4/5 strength. No sensory deficits PSYCHIATRIC: Mood and affect are normal LABORATORY DATA: Please see below IMAGING: CXR: Cardiomegaly with cephalization. Status post aortic valve replacement. No infiltrate seen. Abd XR: Nonspecific small bowel loops in the left lower abdomen. Question mild ileus. Otherwise negative CT head: No acute intracranial abnormality seen. ASSESSMENT: 74-year-old male admitted under inpatient status for treatment of acute right displaced femoral neck fracture, surgery in the AM. PLAN: 1. Acute displaced femoral neck fracture, right. Surgery postponed due to INR not being ideal and patient needing to resume anticoagulation. Last dose enoxaparin late this evening then rechecking INR in AM. Hopeful INR is less than 1.6 and can have surgery 10/20/19. Therapeutic lovenox BID for bridge therapy in place. C/w oxycodone/acetaminophen PRN, morphine for severe pain. NPO after midnight. 2. AMS, intermittent. Transient and unknown cause at this time. TSH, ammonia, trop, UA neg or wnl. 3. 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 BID lovenox for AC currently, starting lovenox and coumadin ELIN post surgery. Risk for hematoma as described by orthopedic but risk of clot formation is high. Check daily INR. Cardiology following. 4. Hypokalemia. Improved with TID KCl. Monitor daily. 5. Mechanical fall, likely multifactorial to physical deconditioning and unsteadiness on his feet. PT/OT to resume after surgery and clearance by ortho. 6. Mild ileus. Resolved after IVFs, bowel regimen. 7. CAD. ECG abnormal however, not much change from prior on file. Continue all cardiac medications. Trop. 8. Hypertension. Stable since pain better controlled. C/w home medications, monitoring on telemetry. 9. Hyperlipidemia. C/w statin. 10. Thoracic Aortic aneurysm, stable. Please see CT above. Having it followed up on regularly as outpatient. 11. CVA with right-sided hemiparesis. No new neurological deficits. On statin, not on ASA. 12. GERD. PPI 13. Depression. Stable. Denies homicidal or suicidal ideation. C/w duloxetine. 14. DVT px. SCDs, Enoxaparin BID until midnight. DISPOSITION: Admitted under inpatient status. Plan is for surgery 10/21/19. After surgery plan is for discharge to rehabilitation or home. VS, I&O, 24H, Argenis Vital Signs/I&O Vital Signs Date Time Temp Pulse Resp B/P (MAP) Pulse Ox O2 Delivery O2 Flow Rate FiO2 10/20/19 10:00 99.1 70 20 121/65 (83) 92 Room Air I&O- Last 24 Hours up to 6 AM 10/20/19 06:00 Intake Total 840 ml Output Total 800 ml Balance 40 ml Laboratory Data 24H LABS Laboratory Tests 2 10/20/19 06:34: Nucleated Red Blood Cells % (auto) 0.0, Prothrombin Time 19.1H, Prothromb Time International Ratio 1.64, Anion Gap 6L, Glomerular Filtration Rate > 60.0, Calcium Level 8.3L, Total Bilirubin 0.9, Aspartate Amino Transf (AST/SGOT) 34, Alanine Aminotransferase (ALT/SGPT) 27, Alkaline Phosphatase 71, Total Protein 5.9L, Albumin 2.6L, Albumin/Globulin Ratio 0.79L 10/20/19 12:02: Prothrombin Time 19.0H, Prothromb Time International Ratio 1.62 CBC/BMP Laboratory Tests 10/20/19 06:34 Current Medications Current Medications Medications (Trade) Dose Ordered Sig/Cassandra Route PRN Reason Start Time Stop Time Status Last Admin Dose Admin Acetaminophen (Tylenol Tab) 650 mg Q4H PRN PO PAIN OR FEVER 10/16/19 14:15 10/19/19 11:06 Amiodarone HCl (Pacerone, Cordarone) 200 mg DAILY PO 10/20/19 09:00 10/20/19 09:49 Atorvastatin Calcium (Lipitor) 40 mg QPM PO 10/16/19 21:00 10/19/19 20:16 Carvedilol (COReg) 37.5 mg BID PO 10/16/19 21:00 10/20/19 09:50 Chlorthalidone (Hygroton, Chlorthalidone) 12.5 mg DAILY PO 10/16/19 09:00 10/20/19 09:48 Docusate Sodium (Colace) 100 mg BID PO 10/16/19 21:00 10/19/19 20:16 Duloxetine HCl (Cymbalta) 60 mg QPM PO 10/16/19 21:00 10/19/19 20:15 Enoxaparin Sodium (Lovenox) 90 mg Q12H SC 10/18/19 21:00 10/19/19 16:48 DC 10/19/19 10:28 Home Med (Med Rec Complete!) ASDIRECTED XX 10/16/19 14:15 10/16/19 14:15 DC Morphine Sulfate (Morphine Sulfate Inj) 1 mg Q6H PRN IV MODERATE PAIN (PS 5-7) 10/16/19 16:45 10/19/19 16:32 DC Morphine Sulfate (Morphine Sulfate Inj) 1 mg Q8HP PRN IV SEVERE PAIN (PS 8-10) 10/19/19 16:00 Morphine Sulfate (Morphine Sulfate Inj) 3 mg Q6H PRN IV SEVERE PAIN (PS 8-10) 10/16/19 16:45 10/19/19 16:32 DC 10/17/19 01:49 Oxycodone/ Acetaminophen (Percocet 5mg/ 325mg Tablet) 1 tab Q6HP PRN PO MILD/MODERATE PAIN (PS 1-7) 10/19/19 16:00 Pantoprazole Sodium (Protonix) 40 mg DAILY PO 10/17/19 09:00 10/20/19 09:49 Polyethylene Glycol (Miralax) 1 pkt DAILYPRN PRN PO CONSTIPATION 10/16/19 16:45 10/18/19 20:24 Potassium Chloride (Micro-K Extencaps) 20 meq TID PO 10/19/19 09:00 10/20/19 09:49 Senna (Senokot) 2 tab QHS PO 10/16/19 21:00 10/19/19 20:15 Sodium Chloride 1,000 ml @ 80 mls/hr [id number] IV 10/16/19 21:00 10/17/19 07:48 DC 10/16/19 21:21 Sodium Chloride 1,000 ml @ 80 mls/hr [id number] IV 10/19/19 16:15 10/20/19 04:29 Sodium Chloride 1,000 ml @ 100 mls/hr Q10H IV 10/16/19 11:57 10/16/19 21:26 DC 10/16/19 12:28 Spironolactone (Aldactone) 12.5 mg DAILY PO 10/17/19 09:00 10/20/19 09:48 Allergies Coded Allergies: No Known Allergies (Unverified , 07/15/16) Graciela Pryor MD Oct 20, 2019 15:52
[2019-10-20 20:00] VITALS: BP 116/63
[2019-10-20] MEDS: SENNA 8.6 MG TAB (SENOKOT) PO SCH (20:39)
[2019-10-20] MEDS: ATORVASTATIN 20 MG TAB PO SCH (20:40)
[2019-10-20] MEDS: DULoxetine 30 MG CAP (CYMBALTA) PO SCH (20:40)
[2019-10-21] VITALS (9 sets, daily range): BP systolic 129–158; BP diastolic 66–82
[2019-10-21 06:58] LABS: HEMATOCRIT 36.8 % (42.0-52.0); MEAN CORPUSCULAR HEMOGLOBIN 28.1 pg (27.0-33.0); MEAN CORPUSCULAR HGB CONC 32.6 g/dl (32.0-36.5); MEAN CORPUSCULAR VOLUME 86.2 fl (80.0-96.0); PLATELET COUNT, AUTOMATED 183 10^3/uL (150-450); RED BLOOD COUNT 4.27 10^6/uL (4.30-6.10); WHITE BLOOD COUNT 8.3 10^3/uL (4.0-10.0)
[2019-10-21 07:11] LABS: INR 1.55; PROTHROMBIN TIME 18.3 SECONDS (11.8-14.0)
[2019-10-21 07:23] LABS: ALBUMIN 2.6 GM/DL (3.2-5.2); ALT/SGPT 26 U/L (12-78); BILIRUBIN,TOTAL 1.3 MG/DL (0.2-1.0); BLOOD UREA NITROGEN 28 MG/DL (7-18); CALCIUM LEVEL 8.3 MG/DL (8.8-10.2); CARBON DIOXIDE LEVEL 29 MEQ/L (21-32); CHLORIDE LEVEL 102 MEQ/L (98-107); CREATININE FOR GFR 1.09 MG/DL (0.70-1.30); GLOMERULAR FILTRATION RATE > 60.0 (>42); GLUCOSE, FASTING 111 MG/DL (70-100); POTASSIUM SERUM 3.5 MEQ/L (3.5-5.1); SODIUM LEVEL 139 MEQ/L (136-145); TOTAL PROTEIN 5.8 GM/DL (6.4-8.2)
[2019-10-21] MEDS: PANTOPRAZOLE 40MG TAB (PROTONIX) PO SCH (08:18)
[2019-10-21] MEDS: AMIODARONE 200 MG TAB (PACERONE) PO SCH (08:18)
[2019-10-21] MEDS: CHLORTHALIDONE 12.5MG PER 1/2 TABLET PO SCH (08:18)
[2019-10-21] MEDS: SPIRONOLACTONE 12.5MG PER 1/2 TABLET PO SCH (08:19)
[2019-10-21] MEDS: DOCUSATE SODIUM 100 MG CAP PO SCH ×2 (08:19→20:33)
[2019-10-21] MEDS: POTASSIUM CHLORIDE 10 MEQ SR TABLET PO SCH ×3 (08:19→20:33)
[2019-10-21] MEDS: ACETAMINOPHEN TAB 650MG DOSE (2X325MG) PO PRN (08:19)
[2019-10-21] MEDS: CARVedilol 12.5 MG TAB PO SCH ×2 (08:20→20:35)
[2019-10-21] MEDS ORDERED: propofoL 200 MG/20 ML VIAL As Ordered ONE (10:46)
[2019-10-21] MEDS ORDERED: LIDOCAINE 2% INJ 100 MG/5 ML SDV (FOR ANES.) As Ordered ONE (10:46)
[2019-10-21] MEDS ORDERED: ONDANSETRON 4MG/2ML VIAL (J2405) As Ordered ONE (10:48)
[2019-10-21] MEDS ORDERED: fentaNYL 100 MCG/2 ML INJECTION (J3010) As Ordered ONE (10:48)
[2019-10-21] MEDS ORDERED: MIDAZOLAM INJ 2 MG/2 ML VIAL (J2250) As Ordered ONE (10:48)
[2019-10-21] MEDS ORDERED: dexameTHASONE 4 MG/ML 1ML VIAL (J1100) As Ordered ONE (10:48)
[2019-10-21] MEDS ORDERED: ceFAZolin 1GM VIAL (J0690 PER 500MG) As Ordered ONE (11:15)
[2019-10-21] MEDS ORDERED: ROCURONIUM BROMIDE 50 MG/5 ML VIAL As Ordered ONE (11:29)
[2019-10-21] MEDS ORDERED: ceFAZolin 2 GM/D5W 50 ML IV BAG (J0690 PER 500MG) As Ordered ONE (11:30)
--- NOTE | 2019-10-21 11:49 | IPNPDOC ---
Date Seen The patient was seen on 10/21/19. Progress Note SUBJECTIVE: No acute complaints overnight by patient. INR 1.55, discussed with Dr. Laws and Dr. Carrillo and will proceed with surgery today. Neuro checks Q4 hrs will be done post surgery to monitor for bleeding. Will start AC as soon that is safely possibly post-operatively. Patient denies chest pain, fevers, chills. OBJECTIVE: VITAL SIGNS: Please see below PHYSICAL EXAMINATION: CONSTITUTIONAL: Comfortable, AAO x 3 EYES: PERRLA, EOM intact, corrective lenses in place HENT, MOUTH: Normocephalic, atraumatic, moist mucous membranes, NECK: SUPPLE, no JVD, no lymphadenopathy, no carotid bruit CV: S1S2 normal, systolic click from mechanical valve CHEST: large vertical, well healed scar on chest. RESPIRATORY: Clear to auscultation bilaterally, no rales/rhonchi/wheezes GI: BS positive in 4 quadrants, soft, nontender, no rebound or guarding, no organomegaly : Deferred MUSCULOSKELETAL: ROM not tested on RLE, straight-leg test normal on LLE. No cyanosis, clubbing, swelling, joint deformity, extremity edema. DP, PT pulses present bilaterally INTEGUMENTARY: Intact, no rashes, no lesions, no erythema NEUROLOGIC: Cranial Nerves II-XII are intact, RU (2/5) and RLE (3-4/5) strength chronic, No sensory deficits PSYCHIATRIC: Mood and affect are normal LABORATORY DATA: Please see below IMAGING: No new imaging. ASSESSMENT: 74-year-old male admitted under inpatient status for treatment of acute right displaced femoral neck fracture, surgery today PLAN: 1. Acute displaced femoral neck fracture, right. Surgery today. Neuro checks Q4 hrs post-operatively. Resume AC (lovenox, coumadin) as soon as safely possibly post op. C/w oxycodone/acetaminophen PRN, morphine for severe pain. PT/OT ordered. 2. Nonrheumatic aortic valve disorder/history of severe aortic stenosis/status post aortic valve placement (mechanical). Last echocardiogram showed appropriate prosthetic function. No symptoms or signs of endocarditis. Endocarditis prophylaxis with ancef preop as suggested by cardiology and post op Ancef 1 g IV Q8hrs. AC as mentioned above. F/u daily INR. 3. AMS, intermittent. Currently AAOx3. Transient and unknown cause at this time. TSH, ammonia, trop, UA neg or wnl. 4. Hypokalemia. potassium wnl, c/w TID KCl. Monitor daily. 5. Mechanical fall, likely multifactorial to physical deconditioning and uns teadiness on his feet. PT/OT to resume after surgery and clearance by ortho. 6. CAD. ECG abnormal however, not much change from prior on file. Continue all cardiac medications. Trop. 7. Hypertension. Stable since pain better controlled. C/w home medications, monitoring on telemetry. 8. Hyperlipidemia. C/w statin. 9. Thoracic Aortic aneurysm, stable. Please see CT above. Having it followed up on regularly as outpatient. 10. CVA with right-sided hemiparesis. No new neurological deficits. On statin, not on ASA. 11. GERD. PPI 12. Depression. Stable. Denies homicidal or suicidal ideation. C/w duloxetine. 13. DVT px. SCDs, resume AC as soon as possible. DISPOSITION: Admitted under inpatient status. Plan is for surgery today. After surgery plan is for discharge to rehabilitation or home. VS, I&O, 24H, [facility] Vital Signs/I&O Vital Signs Date Time Temp Pulse Resp B/P (MAP) Pulse Ox O2 Delivery O2 Flow Rate FiO2 10/21/19 08:20 74 143/68 10/21/19 05:58 98.0 20 97 Room Air I&O- Last 24 Hours up to 6 AM 10/21/19 06:00 Intake Total 1740 ml Output Total 850 ml Balance 890 ml Laboratory Data 24H LABS Laboratory Tests 2 10/20/19 12:02: Prothrombin Time 19.0H, Prothromb Time International Ratio 1.62 10/21/19 06:13: Prothrombin Time 18.3H, Prothromb Time International Ratio 1.55, Nucleated Red Blood Cells % (auto) 0.0, Anion Gap 8, Glomerular Filtration Rate > 60.0, Calcium Level 8.3L, Total Bilirubin 1.3H, Aspartate Amino Transf (AST/SGOT) 29, Alanine Aminotransferase (ALT/SGPT) 26, Alkaline Phosphatase 70, Total Protein 5.8L, Albumin 2.6L, Albumin/Globulin Ratio 0.81L CBC/BMP Laboratory Tests 10/21/19 06:13 Current Medications Current Medications Medications (Trade) Dose Ordered Sig/Cassandra Route PRN Reason Start Time Stop Time Status Last Admin Dose Admin Acetaminophen (Tylenol Tab) 650 mg Q4H PRN PO PAIN OR FEVER 10/16/19 14:15 10/21/19 08:19 Amiodarone HCl (Pacerone, Cordarone) 200 mg DAILY PO 10/20/19 09:00 10/21/19 08:18 Atorvastatin Calcium (Lipitor) 40 mg QPM PO 10/16/19 21:00 10/20/19 20:40 Carvedilol (COReg) 37.5 mg BID PO 10/16/19 21:00 10/21/19 08:20 Chlorthalidone (Hygroton, Chlorthalidone) 12.5 mg DAILY PO 10/16/19 09:00 10/21/19 08:18 Docusate Sodium (Colace) 100 mg BID PO 10/16/19 21:00 10/21/19 08:19 Duloxetine HCl (Cymbalta) 60 mg QPM PO 10/16/19 21:00 10/20/19 20:40 Enoxaparin Sodium (Lovenox) 90 mg Q12H SC 10/18/19 21:00 10/19/19 16:48 DC 10/19/19 10:28 Home Med (Med Rec Complete!) ASDIRECTED XX 10/16/19 14:15 10/16/19 14:15 DC Morphine Sulfate (Morphine Sulfate Inj) 1 mg Q6H PRN IV MODERATE PAIN (PS 5-7) 10/16/19 16:45 10/19/19 16:32 DC Morphine Sulfate (Morphine Sulfate Inj) 1 mg Q8HP PRN IV SEVERE PAIN (PS 8-10) 10/19/19 16:00 Morphine Sulfate (Morphine Sulfate Inj) 3 mg Q6H PRN IV SEVERE PAIN (PS 8-10) 10/16/19 16:45 10/19/19 16:32 DC 10/17/19 01:49 Oxycodone/ Acetaminophen (Percocet 5mg/ 325mg Tablet) 1 tab Q6HP PRN PO MILD/MODERATE PAIN (PS 1-7) 10/19/19 16:00 Pantoprazole Sodium (Protonix) 40 mg DAILY PO 10/17/19 09:00 10/21/19 08:18 Polyethylene Glycol (Miralax) 1 pkt DAILYPRN PRN PO CONSTIPATION 10/16/19 16:45 10/18/19 20:24 Potassium Chloride (Micro-K Extencaps) 20 meq TID PO 10/19/19 09:00 10/21/19 08:19 Senna (Senokot) 2 tab QHS PO 10/16/19 21:00 10/20/19 20:39 Sodium Chloride 1,000 ml @ 80 mls/hr [id number] IV 10/16/19 21:00 10/17/19 07:48 DC 10/16/19 21:21 Sodium Chloride 1,000 ml @ 80 mls/hr [id number] IV 10/19/19 16:15 10/20/19 15:53 DC 10/20/19 04:29 Sodium Chloride 1,000 ml @ 100 mls/hr Q10H IV 10/16/19 11:57 10/16/19 21:26 DC 10/16/19 12:28 Spironolactone (Aldactone) 12.5 mg DAILY PO 10/17/19 09:00 10/21/19 08:19 Allergies Coded Allergies: No Known Allergies (Unverified , 07/15/16) Graciela Pryor MD Oct 21, 2019 11:49
[2019-10-21] MEDS ORDERED: HYDROmorphone HCL 2 MG/ML 1ML VIAL (J1170) As Ordered ONE (12:18)
[2019-10-21] MEDS ORDERED: ACETAMINOPHEN 1000MG 100ML IV BTL (OFIRMEV) (J0131 PER 10MG) As Ordered ONE (13:07)
[2019-10-21] MEDS ORDERED: SUGAMMADEX SODIUM 500 MG/5 ML VIAL (BRIDION) As Ordered ONE (13:21)
[2019-10-21] MEDS ORDERED: HYDROMORPHONE HCL 0.5 MG/ 0.5 ML SYRINGE (J1170 PER 1) As Ordered ONE (13:55)
[2019-10-21] MEDS ORDERED: fentaNYL 100 MCG/2 ML INJECTION (J3010) IV PRN (14:15)
[2019-10-21] MEDS ORDERED: oxyCODONE 5MG TAB PO PRN (14:15)
[2019-10-21] MEDS ORDERED: HYDROMORPHONE HCL 0.5 MG/ 0.5 ML SYRINGE (J1170 PER 1) IV PRN (14:15)
[2019-10-21] MEDS ORDERED: ONDANSETRON 4MG/2ML VIAL (J2405) IV PRN ×2 (14:15→15:15)
[2019-10-21] MEDS ORDERED: LR 1,000 ML IV SCH ×2 (14:15→15:15)
--- NOTE | 2019-10-21 14:31 | REP ---
Clinical: Status post right hip replacement. Technique: AP and cross-table lateral views. Findings: The patient is noted to be status post right hip arthroplasty with normal appearance and positioning to the femoral and acetabular components. Overlying postsurgical changes are appreciated. Impression: Normal status post right hip arthroplasty. Electronically Signed by Edmond Pro MD 10/21/2019 02:23 P
--- NOTE | 2019-10-21 14:34 | RO ---
DATE OF PROCEDURE: 10/21/2019 PREOPERATIVE DIAGNOSIS: Right displaced femoral neck fracture. POSTOPERATIVE DIAGNOSIS: Right displaced femoral neck fracture PROCEDURE: Right hip hemiarthroplasty using a size 9 standard offset [place] stem with a -3 neck and a 53 mm ball. The prosthesis was made by [employer]. SURGEON: Faustina Renteria MD [employer] DEVELOPMENT MANAGER: None ANESTHESIA: General endotracheal tube anesthesia. COMPLICATIONS: None. ESTIMATED BLOOD LOSS: 150 mL. SPECIMENS: Femoral head. FINDINGS: She has a displaced fracture of the right femoral neck that was unstable. DESCRIPTION OF PROCEDURE: Antibiotics were given intravenously preoperatively. A successful general endotracheal tube anesthetic was established. He was placed in a lateral decubitus position on a beanbag. Down leg well padded, especially the peroneal nerve; and an axillary roll was utilized. The right hip area was then carefully prepped and draped in the usual sterile fashion. After appropriate time-out, a longitudinal incision was made for a direct anterolateral approach to the hip. Bovie cautery was used to coagulate the crossing vessels. The subcutaneous and deep tissues were bruised with hemosiderin staining from his fracture site and the fact that he was on anticoagulation. Tensor fascia was divided. We split the gluteus medius anterior one-third and posterior two-third junction. Carefully dissected down to the gluteus minimus. Was then also divided in line with the split in the gluteus medius, dissecting down through the minimus and the anterior hip capsule, carefully peeling the tissues off the proximal femur anteriorly, as we then placed the leg into a leg bag as we dislocated the hip through the fracture site. The pyriformis fossa was identified. Starter reamer utlized, and the canal-finding reamer, then the lateralizing reamer' and then we eventually reamed up to a size 9. Femoral neck osteotomy was performed using the template, and then we began broaching up to a size 9. He had excellent fit and fill at this size with good stability. We were about just shy of a fingerbreadth above the lesser trochanter, about three-quarters of a fingerbreadth. The femoral head was removed. He had a robust ligamentum teres. Any excess comminuted fragments of bone were removed with the rongeur, and we copiously irrigated out the acetabulum. We then trialed off the #9 broach. We did size for a 53 ball, and we sized first with a +0 and reduced the hip. He was very stable, but because of his hemiparesis he had a bit of a hip flexing contracture; and I thought the +0 was a bit too snug, but he was very stable to flexion internal rotation and extension external rotation. Thus, I elected to go with a -3 as long as the real stem would go back down to where the #9 broach was. I then removed the trial broach, copiously pulsatile lavage irrigated out the femoral canal, as well as the acetabulum, and then placed the real #9 stem with excellent purchase. It came right back to where we had inserted the broach. Thus, I went with a -3 because I felt the +0 was a bit too snug. We then dried the trunnion, placed the -3 sleeve with the 53 mm ball and made sure it was impacted in place and was stable, then reduced the hip. We then closed the gluteus minimus back and anterior hip capsule back anatomically with interrupted #1 polydioxanone suture (PDS) sutures. The gluteus medius was closed back anatomically with interrupted #1 PDS sutures, irrigated between layers, closed the tensor fascia with combination #1 PDS sutures and a running single-arm Stratafix. The subdermal tissues were closed with interrupted #2-0 PDS sutures. The skin was closed with shima, covered by an Optifoam, and then he was turned supine, then awakened from general endotracheal tube anesthesia after having tolerated the procedure well, and then transferred to the recovery room in stable condition. There were no intraoperative complications.
[2019-10-21] MEDS: WARFARIN SOD 5 MG TAB PO SCH (16:41)
[2019-10-21] MEDS: ENOXAPARIN 100MG/1ML SYRINGE (J1650) SC SCH (20:33)
[2019-10-21] MEDS: ATORVASTATIN 20 MG TAB PO SCH (20:33)
[2019-10-21] MEDS: SENNA 8.6 MG TAB (SENOKOT) PO SCH (20:33)
[2019-10-21] MEDS: DULoxetine 30 MG CAP (CYMBALTA) PO SCH (20:33)
[2019-10-21] MEDS: ceFAZolin SOD 2 GM in IV 1 EA IV SCH (20:35)
[2019-10-21] MEDS ORDERED: ENOXAPARIN 40 MG/0.4 ML SYRINGE (J1650) SC SCH (21:00)
[2019-10-22 04:00] VITALS: BP 131/71
[2019-10-22] MEDS: ceFAZolin SOD 2 GM in IV 1 EA IV SCH (04:26)
[2019-10-22 04:49] LABS: BASO % 0.1 % (0.0-1.0); HEMATOCRIT 33.4 % (42.0-52.0); HEMOGLOBIN 10.9 g/dl (13.5-17.5); LYMPH # 0.5 10^3/uL (1.5-5.0); LYMPH % 4.4 % (24.0-44.0); MEAN CORPUSCULAR HEMOGLOBIN 28.1 pg (27.0-33.0); MEAN CORPUSCULAR HGB CONC 32.6 g/dl (32.0-36.5); MEAN CORPUSCULAR VOLUME 86.1 fl (80.0-96.0); MONO # 1.6 10^3/uL (0.0-0.8); MONO % 14.3 % (0.0-5.0); NEUTROPHILS # 8.9 10^3/uL (1.5-8.5); PLATELET COUNT, AUTOMATED 205 10^3/uL (150-450); RED BLOOD COUNT 3.88 10^6/uL (4.30-6.10); WHITE BLOOD COUNT 10.9 10^3/uL (4.0-10.0)
[2019-10-22 05:00] LABS: INR 1.75; PROTHROMBIN TIME 20.2 SECONDS (11.8-14.0)
[2019-10-22 05:08] LABS: ALBUMIN 2.4 GM/DL (3.2-5.2); ALT/SGPT 27 U/L (12-78); BILIRUBIN,TOTAL 0.9 MG/DL (0.2-1.0); BLOOD UREA NITROGEN 31 MG/DL (7-18); CALCIUM LEVEL 8.7 MG/DL (8.8-10.2); CARBON DIOXIDE LEVEL 30 MEQ/L (21-32); CHLORIDE LEVEL 101 MEQ/L (98-107); CREATININE FOR GFR 1.15 MG/DL (0.70-1.30); GLOMERULAR FILTRATION RATE > 60.0 (>42); GLUCOSE, FASTING 124 MG/DL (70-100); POTASSIUM SERUM 3.9 MEQ/L (3.5-5.1); SODIUM LEVEL 137 MEQ/L (136-145); TOTAL PROTEIN 6.5 GM/DL (6.4-8.2)
[2019-10-22] MEDS ORDERED: SLF 3 ML SYR IV PRN (06:45)
[2019-10-22 08:00] VITALS: BP 141/80
[2019-10-22] MEDS ORDERED: FUROSEMIDE 40 MG/4 ML VIAL (J1940) IV ONE (08:00)
[2019-10-22] MEDS: ENOXAPARIN 100MG/1ML SYRINGE (J1650) SC SCH ×2 (08:23→21:12)
[2019-10-22] MEDS: CHLORTHALIDONE 12.5MG PER 1/2 TABLET PO SCH (08:23)
[2019-10-22] MEDS: PANTOPRAZOLE 40MG TAB (PROTONIX) PO SCH (08:23)
[2019-10-22] MEDS: POTASSIUM CHLORIDE 10 MEQ SR TABLET PO SCH ×3 (08:24→21:11)
[2019-10-22] MEDS: AMIODARONE 200 MG TAB (PACERONE) PO SCH (08:25)
[2019-10-22] MEDS: CARVedilol 12.5 MG TAB PO SCH ×2 (08:25→21:10)
[2019-10-22] MEDS: DOCUSATE SODIUM 100 MG CAP PO SCH ×2 (08:25→21:12)
[2019-10-22] MEDS: SPIRONOLACTONE 12.5MG PER 1/2 TABLET PO SCH (08:26)
[2019-10-22] MEDS ORDERED: PERCOCET 5MG/325MG TAB PO PRN (08:30)
[2019-10-22 12:00] VITALS: BP 118/77
[2019-10-22] MEDS: SLF 3 ML SYR IV SCH ×2 (14:00→21:12)
--- NOTE | 2019-10-22 15:31 | IPNPDOC ---
Date Seen The patient was seen on 10/22/19. Progress Note SUBJECTIVE: Post-op day 1 for right hip arthroplasty of displaced right femoral neck fracture. Pain controlled on current regimen, PT/OT in room to work with patient today. Received enoxaparin and coumadin last evening, no signs or symptoms of hematoma. Patient in good spirits and denies chest pain, fevers, chills. OBJECTIVE: VITAL SIGNS: Please see below PHYSICAL EXAMINATION: CONSTITUTIONAL: Sitting up at the bedside, comfortable, AAO x 3 EYES: PERRLA, EOM intact, corrective lenses in place HENT, MOUTH: Normocephalic, atraumatic, moist mucous membranes, NECK: SUPPLE, no JVD, no lymphadenopathy, no carotid bruit CV: S1S2 normal, systolic click from mechanical valve CHEST: large vertical, well healed scar on chest. RESPIRATORY: Clear to auscultation bilaterally, no rales/rhonchi/wheezes GI: BS positive in 4 quadrants, soft, nontender, no rebound or guarding, no organomegaly : Deferred MUSCULOSKELETAL: Large incision on the right hip, vertical, appears clean, no erythema, drainage or foul smell. Covered in clean bandage. ROM not tested on RLE, No cyanosis, clubbing, swelling, joint deformity, extremity edema. DP, PT pulses present bilaterally INTEGUMENTARY: Intact, no rashes, no lesions, no erythema NEUROLOGIC: Cranial Nerves II-XII are intact, RU (2/5) and RLE (3-4/5) strength chronic, No sensory deficits PSYCHIATRIC: Mood and affect are normal LABORATORY DATA: Please see below IMAGING: No new imaging. ASSESSMENT: 74-year-old male admitted under inpatient status for treatment of acute right displaced femoral neck fracture s/p right hip arthroplasty. PLAN: 1. Acute displaced right femoral neck fracture s/p right hip arthroplasty. No complications during or postoperatively. C/w PT/OT with WBAT, pain regimen. Anticoagulation includes coumadin with therapeutic lovenox BID bridging. Pain regimen: Percocet, tramadol PRN based on pain scale. Recommend premedicating prior to PT/OT. 2. Nonrheumatic aortic valve disorder/history of severe aortic stenosis/status post aortic valve placement (mechanical). Last echocardiogram showed appropriate prosthetic function. No symptoms or signs of endocarditis. Endocarditis prophylaxis with ancef preop and postop was given. AC as mentioned above. F/u daily INR. 4. Hypokalemia. Potassium wnl, c/w TID KCl. Monitor daily. 5. Mechanical fall, likely multifactorial to physical deconditioning and unsteadiness on his feet. PT/OT, WBAT. 6. CAD. ECG abnormal however, not much change from prior on file. Continue all cardiac medications. 7. Hypertension. Stable since pain better controlled. C/w home medications, monitoring on telemetry. 8. Hyperlipidemia. C/w statin. 9. Thoracic Aortic aneurysm, stable. Please see CT above. Having it followed up on regularly as outpatient. 10. CVA with right-sided hemiparesis. No new neurological deficits. On statin, not on ASA. 11. GERD. PPI 12. Depression. Stable. Denies homicidal or suicidal ideation. C/w duloxetine. 13. DVT px. SCDs, coumadin with lovenox BID bridge therapy currently. When INR 2.5-3.5, stop lovenox. DISPOSITION: Admitted under inpatient status. Plan is PT/OT and [facility] VS, I&O, 24H, [facility] Vital Signs/I&O Vital Signs Date Time Temp Pulse Resp B/P (MAP) Pulse Ox O2 Delivery O2 Flow Rate FiO2 10/22/19 12:00 98.0 84 20 118/77 (91) 93 Room Air 10/22/19 04:00 2.0 I&O- Last 24 Hours up to 6 AM 10/22/19 06:00 Intake Total 2465 ml Output Total 800 ml Balance 1665 ml Laboratory Data 24H LABS Laboratory Tests 2 10/22/19 04:34: Immature Granulocyte % (Auto) 0.2, Neutrophils (%) (Auto) 81.0H, Lymphocytes (%) (Auto) 4.4L, Monocytes (%) (Auto) 14.3H, Eosinophils (%) (Auto) 0.0, Basophils (%) (Auto) 0.1, Neutrophils # (Auto) 8.9H, Lymphocytes # (Auto) 0.5L, Monocytes # (Auto) 1.6H, Eosinophils # (Auto) 0.0, Basophils # (Auto) 0.0, Nucleated Red Blood Cells % (auto) 0.0, Prothrombin Time 20.2H, Prothromb Time International Ratio 1.75, Anion Gap 6L, Glomerular Filtration Rate > 60.0, Calcium Level 8.7L, Total Bilirubin 0.9, Aspartate Amino Transf (AST/SGOT) 33, Alanine Amino transferase (ALT/SGPT) 27, Alkaline Phosphatase 63, Total Protein 6.5, Albumin 2.4L, Albumin/Globulin Ratio 0.59L CBC/BMP Laboratory Tests 10/22/19 04:34 Current Medications Current Medications Medications (Trade) Dose Ordered Sig/Cassandra Route PRN Reason Start Time Stop Time Status Last Admin Dose Admin Acetaminophen (Tylenol Tab) 650 mg Q4H PRN PO PAIN OR FEVER 10/16/19 14:15 10/21/19 08:19 Amiodarone HCl (Pacerone, Cordarone) 200 mg DAILY PO 10/20/19 09:00 10/22/19 08:25 Atorvastatin Calcium (Lipitor) 40 mg QPM PO 10/16/19 21:00 10/21/19 20:33 Carvedilol (COReg) 37.5 mg BID PO 10/16/19 21:00 10/22/19 08:25 Cefazolin Sodium/ Dextrose 2 gm/IV Miscellaneous Supplies 50 ml @ 75 mls/hr Q8H IV 10/21/19 20:00 10/22/19 04:39 DC 10/22/19 04:26 Chlorthalidone (Hygroton, Chlorthalidone) 12.5 mg DAILY PO 10/16/19 09:00 10/22/19 08:23 Docusate Sodium (Colace) 100 mg BID PO 10/16/19 21:00 10/22/19 08:25 Duloxetine HCl (Cymbalta) 60 mg QPM PO 10/16/19 21:00 10/21/19 20:33 Enoxaparin Sodium (Lovenox) 40 mg QHS SC 10/21/19 21:00 10/21/19 14:54 DC Enoxaparin Sodium (Lovenox) 90 mg Q12H SC 10/18/19 21:00 10/19/19 16:48 DC 10/19/19 10:28 Enoxaparin Sodium (Lovenox) 90 mg Q12H SC 10/21/19 21:00 10/22/19 08:23 Fentanyl Citrate (Sublimaze) 25 mcg Q5MP PRN IV PAIN LEVEL 5-10 10/21/19 14:15 10/21/19 15:15 DC Home Med (Med Rec Complete!) ASDIRECTED XX 10/16/19 14:15 10/16/19 14:15 DC Hydromorphone HCl (Dilaudid) 0.2 mg Q5MP PRN IV PAIN LEVEL 4-7 10/21/19 14:15 10/21/19 15:15 DC 10/21/19 14:04 Lactated Ringer's 1,000 ml @ 75 mls/hr [id number] IV 10/21/19 15:15 10/21/19 16:36 DC 10/21/19 15:46 Lactated Ringer's 1,000 ml @ 100 mls/hr Q10H IV 10/21/19 14:15 10/21/19 15:15 DC Morphine Sulfate (Morphine Sulfate Inj) 1 mg Q6H PRN IV MODERATE PAIN (PS 5-7) 10/16/19 16:45 10/19/19 16:32 DC Morphine Sulfate (Morphine Sulfate Inj) 1 mg Q8HP PRN IV SEVERE PAIN (PS 8-10) 10/19/19 16:00 10/22/19 08:08 DC 10/22/19 04:26 Morphine Sulfate (Morphine Sulfate Inj) 3 mg Q6H PRN IV SEVERE PAIN (PS 8-10) 10/16/19 16:45 10/19/19 16:32 DC 10/17/19 01:49 Ondansetron HCl (ZOFRAN INJection) 4 mg Q4HP PRN IV NAUSEA OR VOMITING 10/21/19 14:15 10/21/19 15:15 DC Ondansetron HCl (ZOFRAN INJection) 4 mg Q4HP PRN IV NAUSEA OR VOMITING 10/21/19 15:15 Oxycodone HCl (Roxicodone, Oxyir) 5 mg ASDIRECTED PRN PO PAIN LEVEL 1-4 10/21/19 14:15 10/21/19 15:15 DC Oxycodone/ Acetaminophen (Percocet 5mg/ 325mg Tablet) 1 tab Q4H PRN PO MILD/MODERATE PAIN (PS 1-7) 10/22/19 08:30 10/22/19 08:31 Oxycodone/ Acetaminophen (Percocet 5mg/ 325mg Tablet) 1 tab Q6HP PRN PO MILD/MODERATE PAIN (PS 1-7) 10/19/19 16:00 10/22/19 08:19 DC 10/22/19 01:45 Pantoprazole Sodium (Protonix) 40 mg DAILY PO 10/17/19 09:00 10/22/19 08:23 Polyethylene Glycol (Miralax) 1 pkt DAILYPRN PRN PO CONSTIPATION 10/16/19 16:45 10/18/19 20:24 Potassium Chloride (Micro-K Extencaps) 20 meq TID PO 10/19/19 09:00 10/22/19 08:24 Senna (Senokot) 2 tab QHS PO 10/16/19 21:00 10/21/19 20:33 Sodium Chloride 1,000 ml @ 80 mls/hr [id number] IV 10/16/19 21:00 10/17/19 07:48 DC 10/16/19 21:21 Sodium Chloride 1,000 ml @ 80 mls/hr [id number] IV 10/19/19 16:15 10/20/19 15:53 DC 10/20/19 04:29 Sodium Chloride 1,000 ml @ 100 mls/hr Q10H IV 10/16/19 11:57 10/16/19 21:26 DC 10/16/19 12:28 Sodium Chloride (Saline Lock Flush) 2 ml ASDIRECTED PRN IV SEE LABEL COMMENTS 10/22/19 06:45 Sodium Chloride (Saline Lock Flush) 2 ml SLF IV 10/22/19 14:00 Spironolactone (Aldactone) 12.5 mg DAILY PO 10/17/19 09:00 10/22/19 08:26 Warfarin Sodium (Coumadin) 5 mg DAILY@17 PO 10/21/19 17:00 10/21/19 16:41 Allergies Coded Allergies: No Known Allergies (Unverified , 07/15/16) Graciela Pryor MD Oct 22, 2019 15:31
[2019-10-22 16:00] VITALS: BP 120/68
[2019-10-22] MEDS ORDERED: traMADol 50 MG TAB PO PRN (16:00)
[2019-10-22] MEDS: WARFARIN SOD 5 MG TAB PO SCH (16:37)
[2019-10-22 20:00] VITALS: BP 145/76
[2019-10-22] MEDS: SENNA 8.6 MG TAB (SENOKOT) PO SCH (21:10)
[2019-10-22] MEDS: PERCOCET 5MG/325MG TAB PO PRN (21:11)
[2019-10-22] MEDS: DULoxetine 30 MG CAP (CYMBALTA) PO SCH (21:11)
[2019-10-22] MEDS: ATORVASTATIN 20 MG TAB PO SCH (21:12)
[2019-10-22 23:59] VITALS: BP 118/74
[2019-10-23] VITALS: BP 118/74
[2019-10-23] MEDS: PERCOCET 5MG/325MG TAB PO PRN ×2 (00:03→13:47)
[2019-10-23 04:00] VITALS: BP 124/76
[2019-10-23 05:20] LABS: BASO % 0.2 % (0.0-1.0); EOS # 0.1 10^3/uL (0.0-0.5); EOS % 1.1 % (0.0-3.0); HEMATOCRIT 31.5 % (42.0-52.0); HEMOGLOBIN 10.3 g/dl (13.5-17.5); LYMPH # 0.9 10^3/uL (1.5-5.0); LYMPH % 9.5 % (24.0-44.0); MEAN CORPUSCULAR HEMOGLOBIN 27.8 pg (27.0-33.0); MEAN CORPUSCULAR HGB CONC 32.7 g/dl (32.0-36.5); MEAN CORPUSCULAR VOLUME 84.9 fl (80.0-96.0); MONO # 1.4 10^3/uL (0.0-0.8); NEUTROPHILS # 6.8 10^3/uL (1.5-8.5); NEUTROPHILS % 73.5 % (36.0-66.0); PLATELET COUNT, AUTOMATED 209 10^3/uL (150-450); RED BLOOD COUNT 3.71 10^6/uL (4.30-6.10); WHITE BLOOD COUNT 9.2 10^3/uL (4.0-10.0)
[2019-10-23 05:28] LABS: INR 2.27; PROTHROMBIN TIME 24.8 SECONDS (11.8-14.0)
[2019-10-23 05:52] LABS: ALBUMIN 2.2 GM/DL (3.2-5.2); ALT/SGPT 19 U/L (12-78); BILIRUBIN,TOTAL 0.9 MG/DL (0.2-1.0); BLOOD UREA NITROGEN 40 MG/DL (7-18); CALCIUM LEVEL 8.7 MG/DL (8.8-10.2); CARBON DIOXIDE LEVEL 32 MEQ/L (21-32); CHLORIDE LEVEL 99 MEQ/L (98-107); CREATININE FOR GFR 1.22 MG/DL (0.70-1.30); GLOMERULAR FILTRATION RATE > 60.0 (>42); GLUCOSE, FASTING 115 MG/DL (70-100); POTASSIUM SERUM 3.6 MEQ/L (3.5-5.1); SODIUM LEVEL 135 MEQ/L (136-145); TOTAL PROTEIN 6.4 GM/DL (6.4-8.2)
[2019-10-23] MEDS: SLF 3 ML SYR IV SCH ×2 (06:37→13:38)
[2019-10-23] MEDS ORDERED: TRAM50TA2 PO (07:21)
[2019-10-23] MEDS ORDERED: ACET-841 PO (07:21)
[2019-10-23 08:00] VITALS: BP 128/62
[2019-10-23 08:19] VITALS: BP 124/76
[2019-10-23] MEDS: CHLORTHALIDONE 12.5MG PER 1/2 TABLET PO SCH (08:19)
[2019-10-23] MEDS: ENOXAPARIN 100MG/1ML SYRINGE (J1650) SC SCH ×2 (08:19→08:25)
[2019-10-23] MEDS: POTASSIUM CHLORIDE 10 MEQ SR TABLET PO SCH (08:19)
[2019-10-23] MEDS: CARVedilol 12.5 MG TAB PO SCH (08:19)
[2019-10-23] MEDS: DOCUSATE SODIUM 100 MG CAP PO SCH (08:20)
[2019-10-23] MEDS: SPIRONOLACTONE 12.5MG PER 1/2 TABLET PO SCH (08:20)
[2019-10-23] MEDS: PANTOPRAZOLE 40MG TAB (PROTONIX) PO SCH (08:20)
[2019-10-23] MEDS: AMIODARONE 200 MG TAB (PACERONE) PO SCH (08:20)
--- NOTE | 2019-10-23 11:51 | DS.PDOC ---
Discharge Summary General Date of Admission Oct 16, 2019 at 14:15 Date of Discharge 10/23/19 Discharge Summary PROCEDURES PERFORMED DURING STAY: None. ADMITTING DIAGNOSES: 1. Fracture of right femoral neck. DISCHARGE DIAGNOSES: 1. Fracture of right femoral neck, CAD, hypertension, aortic wall replacement, CVA, pulmonary hypertension. COMPLICATIONS/CHIEF COMPLAINT: Fracture Of Femoral Neck,Right,Closed. HISTORY OF PRESENT ILLNESS: The patient is a 74-year-old male with past history of coronary artery disease status post STEMI, hypertension, aortic valve replacement, CVA, pulmonary hypertension, thoracic aortic aneurysm (stable) who presented to [facility] emergency room after sustaining a fall this morning at 10 AM. The patient states he was walking and was distracted which left him unsteady on his feet. The patient walks with a cane and walker at baseline. He has been falling often at home and falls about once to 2 times per month. He states today he fell and landed on his right hip and also hit his head on the ground. He denies any loss of consciousness, increased weakness in the lower extremities, lightheadedness or dizziness preceding his fall. His right hip pain which occurred suddenly after the fall was described as severe, 10 out of 10, sharp, intermittent. Pain was worsened with movement and there was no alleviating factors. He denies shortness of breath, cough, chest pain, fever, chills, nausea, vomiting, diarrhea, blurry vision, loss of appetite at home. He does have a recent history of upper respiratory infection. His fall was witnessed by his who then called 911. In the emergency room the patient had several CT scans and x-rays. Femur x-ray showed femoral neck fracture, displaced on the right side. INR was found to be supratherapeutic at 3.8, no signs of acute bleeding. The patient's goal INR is between 2.5 and 3.5 for mechanical valve. Pain was severe and the patient was administered a dose of morphine and later 1 mg of IV Dilaudid which helped with his pain. Hemodynamically he was stable. ECG was abnormal; however, when compared to prior ECG this did not show much change. Orthopedic surgery saw the patient at the bedside in the emergency room who recommended hospital admission for possible surgery later this week.. HOSPITAL COURSE: 74-year-old male admitted under inpatient status for treatment of acute right displaced femoral neck fracture s/p right hip arthroplasty. Acute displaced right femoral neck fracture s/p right hip arthroplasty. No complications during or postoperatively. C/w PT/OT with WBAT, pain regimen. Anticoagulation includes coumadin with therapeutic lovenox BID bridging. Pain regimen: Percocet, tramadol PRN based on pain scale. Recommend premedicating prior to PT/OT. Patient will be transferred to acute rehabilitation unit today to continue physical therapy Nonrheumatic aortic valve disorder/history of severe aortic stenosis/status post aortic valve placement (mechanical). Last echocardiogram showed appropriate prosthetic function. No symptoms or signs of endocarditis. Endocarditis p rophylaxis with ancef preop and postop was given. AC as mentioned above. F/u daily INR., Today's INR is 2.27, more than 2.5 Lovenox can be DC'd Hypokalemia. Potassium wnl, c/w TID KCl. Monitor daily. CAD. ECG abnormal however, not much change from prior on file. Continue all cardiac medications. Hypertension. Stable since pain better controlled. C/w home medications, monitoring on telemetry. Hyperlipidemia: Continue by mouth statin Thoracic Aortic aneurysm, stable. Please see CT report . Having it followed up on regularly as outpatient. CVA with right-sided hemiparesis. No new neurological deficits. On statin, not on ASA. GERD. Continue PPI Depression. Stable. Denies homicidal or suicidal ideation. C/w duloxetine. DISPOSITION: Admitted under inpatient status. Plan is PT/OT and discharge to hopefully home.. DISCHARGE MEDICATIONS: Please see below. ALLERGIES: Please see below. PHYSICAL EXAMINATION ON DISCHARGE: VITAL SIGNS: Please see below. GENERAL: Within normal limits HEENT: PERRLA, XRT, muscle intact NECK: Supple. Negative JVD CARDIOVASCULAR EXAMINATION: Clear to A&P RESPIRATORY EXAMINATION: S1, S2, regular ABDOMINAL EXAMINATION: Benign EXTREMITIES: No clubbing, cyanosis, edema SKIN: Normal NEUROLOGICAL EXAMINATION: No focal motor sensory deficit PSYCHIATRIC EXAMINATION: Normal LABORATORY DATA: Please see below. IMAGING: Hip x-ray:Impression: Normal status post right hip arthroplasty. PROGNOSIS: Good ACTIVITY: As tolerated. DIET: As tolerated DISCHARGE PLAN: Discharge area facility DISPOSITION: . Rehabilitation facility DISCHARGE INSTRUCTIONS: 1. As per discharge instruction. ITEMS TO FOLLOWUP ON ON OUTPATIENT: 1. Follow with [facility] in 1-2 weeks. DISCHARGE CONDITION: Stable. TIME SPENT ON DISCHARGE: 35 minutes. Vital Signs/I&Os Vital Signs Date Time Temp Pulse Resp B/P (MAP) Pulse Ox O2 Delivery O2 Flow Rate FiO2 10/23/19 08:19 74 124/76 10/23/19 08:00 98.7 18 91 Room Air 10/22/19 04:00 2.0 I&O- Last 24 Hours up to 6 AM 10/23/19 06:00 Intake Total 880 ml Output Total 1575 ml Balance -695 ml Laboratory Data Labs 24H Laboratory Tests 2 10/23/19 04:43: Immature Granulocyte % (Auto) 0.7, Neutrophils (%) (Auto) 73.5H, Lymphocytes (%) (Auto) 9.5L, Monocytes (%) (Auto) 15.0H, Eosinophils (%) (Auto) 1.1, Basophils (%) (Auto) 0.2, Neutrophils # (Auto) 6.8, Lymphocytes # (Auto) 0.9L, Monocytes # (Auto) 1.4H, Eosinophils # (Auto) 0.1, Basophils # (Auto) 0.0, Nucleated Red Blood Cells % (auto) 0.0, Prothrombin Time 24.8H, Prothromb Time International Ratio 2.27, Anion Gap 4L, Glomerular Filtration Rate > 60.0, Calcium Level 8.7L, Total Bilirubin 0.9, Aspartate Amino Transf (AST/SGOT) 32, Alanine Aminotransferase (ALT/SGPT) 19, Alkaline Phosphatase 67, Total Protein 6.4, Albumin 2.2L, Albumin/Globulin Ratio 0.52L CBC/BMP Laboratory Tests 10/23/19 04:43 Discharge Medications Scheduled Amiodarone HCl (Amiodarone HCl) 200 Mg Tablet, 200 MG PO DAILY, (Reported) Atorvastatin Calcium (Atorvastatin Calcium) 40 Mg Tablet, 40 MG PO QPM, (Reported) Carvedilol (Carvedilol) 25 Mg Tablet, 37.5 MG PO BID, (Reported) Chlorthalidone (Chlorthalidone) 25 Mg Tablet, 12.5 MG PO DAILY, (Reported) Docusate Sodium (Stool Softener) 100 Mg Capsule, 100 MG PO TID, (Reported) may take up to 3 caps Duloxetine Hcl (Duloxetine HCl) 30 Mg Capsule.dr, 60 MG PO QPM, (Reported) Eplerenone (Eplerenone) 25 Mg Tablet, 12.5 MG PO DAILY, (Reported) Pantoprazole Sodium (Pantoprazole Sodium) 40 Mg Tablet.dr, 40 MG PO DAILY, (Reported) Warfarin Sodium (Warfarin Sodium) 4 Mg Tablet, 4 MG PO 4XWK, (Reported) sun,mon,wed,fri Warfarin Sodium (Warfarin Sodium) 4 Mg Tablet, 2 MG PO 3XW, (Reported) e,,sat Scheduled PRN Acetaminophen (Acetaminophen) 500 Mg Tablet, 2 TAB PO BID PRN for LEAH Tramadol HCl (Tramadol HCl) 50 Mg Tablet, 1-2 TAB PO Q4H PRN for PAIN Allergies Coded Allergies: No Known Allergies (Unverified , 07/15/16) ALEXANDER GUAJARDO MD Oct 23, 2019 11:51
== END 2019-10-23 14:19 | DRG 470 ==
LOC: M ED 11:49 → M ED INP 14:15 → ENRESERVTM 14:59 → ENRESERVDT 14:59 → M MSPAV 16:30 → M MS5PR 10-18 13:20 → M PCU 10-21 16:10
PROVIDERS: ADMIT Internal Medicine; ATTEND Internal Medicine
PROC: 0SRR0JZ Replacement of Right Hip Joint, Femoral Surface with Synthetic Substitute, Open Approach (ICD-10-PCS; principal; 2019-10-21)
DX: S72.091A Other fracture of head and neck of right femur, initial encounter for closed fracture (principal); I69.351 Hemiplegia and hemiparesis following cerebral infarction affecting right dominant side; K56.7 Ileus, unspecified; I50.32 Chronic diastolic (congestive) heart failure; I25.10 Atherosclerotic heart disease of native coronary artery without angina pectoris; I25.2 Old myocardial infarction; I11.0 Hypertensive heart disease with heart failure; I27.20 Pulmonary hypertension, unspecified; I71.2 Thoracic aortic aneurysm, without rupture; R29.6 Repeated falls; W18.09XA Striking against other object with subsequent fall, initial encounter; E78.5 Hyperlipidemia, unspecified; K21.9 Gastro-esophageal reflux disease without esophagitis; F32.9 Major depressive disorder, single episode, unspecified; R26.81 Unsteadiness on feet; R41.82 Altered mental status, unspecified; E87.6 Hypokalemia; Y92.89 Other specified places as the place of occurrence of the external cause; I48.0 Paroxysmal atrial fibrillation; I44.0 Atrioventricular block, first degree; Z87.891 Personal history of nicotine dependence; Z95.2 Presence of prosthetic heart valve; Z79.01 Long term (current) use of anticoagulants; Z79.899 Other long term (current) drug therapy

== ENCOUNTER 2019-10-23 10:28 | Inpatient (IN) | payer MEDICARE ==
[~2019-10-23] VITALS: Ht 172.7 cm; Wt 86.7 kg
[~2019-10-23 10:28] MED LIST changes: +ACET-841 PO; +PANT-23 PO; +TRAM50TA2 PO; +WARF-20 PO
--- NOTE | 2019-10-23 12:11 | HPEPDOC ---
[employer] Note DATE OF ADMISSION: 10-23-19 DATE OF SERVICE: 10-23-19 TIME OF ADMISSION: Please refer to physician's admission order. SOURCE OF ADMISSION INFORMATION: [facility] record and patient CHIEF COMPLAINT: hip fracture HISTORY OF PRESENT ILLNESS: 74M pmh CAD s/p STEMI, HTN, depression, mechanical AVR 1985, Afib, CVA with residual right sided weakness, pulmonary HTN, thoracic aortic aneurysm who fell at home and presented to [facility] ED on 10-16-19 with right hip pain and difficulty w alking. Xray revealed, Transverse fracture of the right femoral neck. He was found to have a supratherapeutic INR so surgery was postponed until 10/21/19 when he underwent a right hip hemiarthroplasty without complications. He was started on a Lovenox-Coumadin bridge with therapeutic INR and provided with supplemental potassium for hypokalemia. Cardiology performed ECHO showing diastolic dysfunction and suggested continuation of diuretics and fluid restriction. He was evaluated by therapy and was noted to have significant impairments in mobility and ADLs well below his prior level of function and deemed medically appropriate for discharge to ARU on 10-23-19. REVIEW OF SYSTEMS: The following is a completed review of systems and has been reviewed. Review of systems otherwise unremarkable. PAIN: Patient self reports right hip pain EYES: No recent vision changes EARS, NOSE, & THROAT: No throat pain, or dysphagia, or rhinorrhea CARDIOVASCULAR: Denies chest pain or palpitations PULMONARY: Denies shortness of breath, +dry cough GASTROINTESTINAL: Denies constipation/diarrhea GENITOURINARY: denies dysuria MUSCULOSKELETAL: right hip fracture NEUROLOGICAL:mild right sided paresis HEMATOLOGICAL: denies easy bruising SKIN: +surgical incision PSYCHIATRIC: Unremarkable All other review of systems found to be negative. PAST MEDICAL HISTORY: as per HPI PAST SURGICAL HISTORY: Aortic valve replacement 1985, hernia repair, T&A, left hand surgery, left knee arthroscopy ALLERGIES: Please see below. MEDICATIONS: Please see below. FAMILY HISTORY: cardiac, cancer SOCIAL HISTORY: Former smoker, former ETOH abuse, no illicit drugs DIET: 2g Na and fluid restrict PHYSICAL EXAMINATION: VITAL SIGNS: Please see below. GENERAL: Pleasant and cooperative. No acute distress. HEENT: PERRL. Extraocular movements intact. Clear conjunctiva CARDIOVASCULAR: Regular rate and rhythm. No murmurs, rubs, or gallops LUNGS: Clear to auscultation bilaterally. No wheezes. No rhonchi ABDOMEN: Soft, nontender, nondistended. Positive bowel sounds. Normal active bowel sounds]. NEUROLOGICAL: Alert and oriented times three. Cranial nerves II through XII grossly intact. Sensation grossly intact all 4limbs including 1 web space right foot EXTREMITIES:5\5 strength bilateral upper extremities. 4\5 strength right ankle DF/EHL and PF 5/5 strength in left lower extremity (limited due to recent surgery) SKIN:sacrum with blanchable erythema, right hip incision with mild edema/erythema, no induration LABORATORY DATA: Please see below. IMAGING:Imaging documentation personally reviewed by record FUNCTIONAL STATUS: Premorbid: Modified Independent with all activities of daily life as well as mobility with cane and RW On Admission: Mod-Total assistance for bathing, upper body dressing, bed chair and wheelchair transfers, toilet transfers, ambulation. GOALS: Mod-I ambulating with Rw household distances, functional transfers, stairs, dressing, bathing, toileting, medical optimization ASSESSMENT:74-year-old M with past medical history of CVA with right sided weakness who presents status post PLAN: 1. Rehab- PT/OT advance gait and ADL training maintain total hip precautions for RLE, strengthen/stretch/maintain ROM all 4 limbs, dynamic balance training 2. Neuro: no active issue 3. Ortho: s/p right hip fracture with shauna-arthroplasty, f/u ortho- consulted -maintain WBAT with hip precautions 4. Cardiac: hx of mechanical valve replacement with Afib, c/u warfarin, monitor and manage daily INR, c/u Carvedilol and Amiodarone -f/u PMD and cardiology (Dr. Alfaro) for known thoracic aortic aneurysm -hx of diastolic CHF c/u diuretics, fluid restrictions, daily weight -patient recently started on potassium supplements, will c/u and manage -HLD c/u statin -medicine consulted to assist in overall management 5. Resp: encourage incentive spirometry, monitor for infection 6. GI ppx: Protonix 7. DVT ppx: warfarin, TEDs 8. Pain: Tylenol 1g TID standing, tramadol prn 9. Psych: hx of depression, c/u Cymbalta 60mg qHS 10. Skin: c/u barrier cream 11. Dispo: TBD POST ADMISSION PHYSICIAN EVALUATION: Medical and functional status: Description of medical status, medical assessment: As above. Rehabilitation diagnosis and current and prior cold morbid medical conditions as above. Risk of complications and plans to mitigate them as above. Description of functional status current status is as above. Prior status as above. Status compared to preadmission: There are no clinically significant differences between the patient's current status and the information described on the preadmission screening document. Treatment plan anticipated: Treatment plan is as described above. Required disciplines including physical therapy, occupational therapy, others as noted above. Intensity of services: 3 hours a day, 6 days a week. Special considerations: There are no specific special or safety considerations that would likely preclude immediate implementation of an intensive rehabilitation program or subsequently influence the plan of care. ATTESTATION: Considering all the information above, it is my best judgment that this patient requires intensive rehabilitation therapy as described above and an inpatient hospital environment due to the complexity of nursing, medical, and rehabilitation needs required by the patient. Furthermore, this patient can reasonably be expected to participate in an benefit from an inpatient rehabilitation stay with an interdisciplinary team approach to the delivery of rehabilitation care under the direction and supervision of rehabilitation physician. PROGNOSIS: good ESTIMATED LENGTH OF STAY:21-24 days. PROJECTED DISCHARGE DESTINATION: Home with family support and any durable medical equipment required to increase functional safety and mobility. TIME SPENT COUNSELING AND COORDINATING INITIAL CARE: Greater than 70 minutes. Vital Signs Vital Signs Date Time Temp Pulse Resp B/P (MAP) Pulse Ox O2 Delivery O2 Flow Rate FiO2 10/23/19 15:38 100.1 74 18 151/70 (97) 95 Room Air Home Medications Scheduled Amiodarone HCl (Amiodarone HCl) 200 Mg Tablet, 200 MG PO DAILY, (Reported) Atorvastatin Calcium (Atorvastatin Calcium) 40 Mg Tablet, 40 MG PO QPM, (Repo rted) Carvedilol (Carvedilol) 25 Mg Tablet, 37.5 MG PO BID, (Reported) Chlorthalidone (Chlorthalidone) 25 Mg Tablet, 12.5 MG PO DAILY, (Reported) Docusate Sodium (Stool Softener) 100 Mg Capsule, 100 MG PO TID, (Reported) may take up to 3 caps Duloxetine Hcl (Duloxetine HCl) 30 Mg Capsule.dr, 60 MG PO QPM, (Reported) Eplerenone (Eplerenone) 25 Mg Tablet, 12.5 MG PO DAILY, (Reported) Pantoprazole Sodium (Pantoprazole Sodium) 40 Mg Tablet.dr, 40 MG PO DAILY, (Reported) Warfarin Sodium (Warfarin Sodium) 4 Mg Tablet, 4 MG PO 4XWK, (Reported) sun,mon,tue,fri Warfarin Sodium (Warfarin Sodium) 4 Mg Tablet, 2 MG PO 3XW, (Reported) tue,thur,sat Scheduled PRN Acetaminophen (Acetaminophen) 500 Mg Tablet, 2 TAB PO BID PRN for LEAH Tramadol HCl (Tramadol HCl) 50 Mg Tablet, 1-2 TAB PO Q4H PRN for PAIN Allergies Coded Allergies: No Known Allergies (Unverified , 07/15/16) A-FIB/CHADSVASC A-FIB History Current/History of A-Fib/PAF?: Yes Current PO Anticoag Therapy: Yes JAC LUNA MD Oct 23, 2019 12:11
[2019-10-23] MEDS ORDERED: BISACODYL 10 MG SUPP PR PRN (12:15)
[2019-10-23] MEDS: IPRATROPIUM 0.5MG/ALBUTEROL 2.5MG INH SOL UD 3ML (DUONEB)(J7620) NEB SCH ×2 (14:00→19:35)
[2019-10-23 15:38] VITALS: BP 151/70
[2019-10-23] MEDS: WARFARIN SOD 4 MG TAB PO SCH (17:06)
[2019-10-23] MEDS: ACETAMINOPHEN 500 MG TAB PO SCH ×2 (17:06→20:42)
[2019-10-23] MEDS: POTASSIUM CHLORIDE 10 MEQ SR TABLET PO SCH ×2 (17:07→20:44)
[2019-10-23] MEDS: REMEDY PHYTOPLEX Z-GUARD PASTE 113GM TUBE (FROM STOREROOM PRODUCT) TOP SCH ×2 (17:08→20:43)
[2019-10-23 20:00] VITALS: BP 130/70
[2019-10-23] MEDS: DULoxetine 30 MG CAP (CYMBALTA) PO SCH (20:41)
[2019-10-23] MEDS: SENNA 8.6 MG TAB (SENOKOT) PO SCH (20:42)
[2019-10-23] MEDS: ATORVASTATIN 20 MG TAB PO SCH (20:44)
[2019-10-23] MEDS: DOCUSATE SODIUM 100 MG CAP PO SCH (20:44)
[2019-10-23] MEDS: CARVedilol 12.5 MG TAB PO SCH (20:45)
[2019-10-24 06:00] VITALS: BP 125/67
[2019-10-24 06:51] LABS: BASO % 0.2 % (0.0-1.0); EOS # 0.2 10^3/uL (0.0-0.5); EOS % 2.1 % (0.0-3.0); HEMATOCRIT 32.2 % (42.0-52.0); HEMOGLOBIN 10.4 g/dl (13.5-17.5); LYMPH # 0.8 10^3/uL (1.5-5.0); LYMPH % 8.7 % (24.0-44.0); MEAN CORPUSCULAR HEMOGLOBIN 28.1 pg (27.0-33.0); MEAN CORPUSCULAR HGB CONC 32.3 g/dl (32.0-36.5); MONO # 0.9 10^3/uL (0.0-0.8); MONO % 9.9 % (0.0-5.0); NEUTROPHILS # 7.2 10^3/uL (1.5-8.5); NEUTROPHILS % 78.1 % (36.0-66.0); PLATELET COUNT, AUTOMATED 252 10^3/uL (150-450); WHITE BLOOD COUNT 9.3 10^3/uL (4.0-10.0)
[2019-10-24 07:02] LABS: INR 2.31; PROTHROMBIN TIME 25.2 SECONDS (11.8-14.0)
[2019-10-24 07:20] LABS: ALBUMIN 2.2 GM/DL (3.2-5.2); BILIRUBIN,TOTAL 0.8 MG/DL (0.2-1.0); CALCIUM LEVEL 8.8 MG/DL (8.8-10.2); CREATININE FOR GFR 1.25 MG/DL (0.70-1.30); GLOMERULAR FILTRATION RATE 59.8 (>42); TOTAL PROTEIN 6.6 GM/DL (6.4-8.2)
[2019-10-24] MEDS: IPRATROPIUM 0.5MG/ALBUTEROL 2.5MG INH SOL UD 3ML (DUONEB)(J7620) NEB SCH ×3 (07:43→19:48)
[2019-10-24 09:00] VITALS: BP 128/75
[2019-10-24] MEDS: REMEDY PHYTOPLEX Z-GUARD PASTE 113GM TUBE (FROM STOREROOM PRODUCT) TOP SCH ×3 (09:00→20:48)
[2019-10-24] MEDS: CHLORTHALIDONE 12.5MG PER 1/2 TABLET PO SCH (09:35)
[2019-10-24] MEDS: ACETAMINOPHEN 500 MG TAB PO SCH ×3 (09:36→20:47)
[2019-10-24] MEDS: AMIODARONE 200 MG TAB (PACERONE) PO SCH (09:36)
[2019-10-24] MEDS: PANTOPRAZOLE 40MG TAB (PROTONIX) PO SCH (09:36)
[2019-10-24] MEDS: POTASSIUM CHLORIDE 10 MEQ SR TABLET PO SCH ×3 (09:36→20:47)
[2019-10-24] MEDS: CARVedilol 12.5 MG TAB PO SCH ×2 (09:36→20:46)
[2019-10-24] MEDS: DOCUSATE SODIUM 100 MG CAP PO SCH ×2 (09:36→20:47)
[2019-10-24] MEDS: SPIRONOLACTONE 12.5MG PER 1/2 TABLET PO SCH (09:40)
--- NOTE | 2019-10-24 10:42 | CR.PDOC ---
General Date of Consultation: Oct 24, 2019 Referring Provider: JAC LUNA MD Attending Physician: ALEXANDER GUAJARDO MD Consultation REASON FOR CONSULTATION/CHIEF COMPLAINT: Medical management, history of hypertension, CAD, and abdominal aneurysm. HISTORY OF PRESENT ILLNESS: The patient is a 74-year-old male with past history of coronary artery disease status post STEMI, hypertension, aortic valve replacement, CVA, pulmonary hypertension, thoracic aortic aneurysm (stable) who presented to [facility] emergency room after sustaining a fall this morning at 10 AM. The patient states he was walking and was distracted which left him unsteady on his feet. The patient walks with a cane and walker at baseline. He has been falling often at home and falls about once to 2 times per month. He states today he fell and landed on his right hip and also hit his head on the ground. He denies any loss of consciousness, increased weakness in the lower extremities, lightheadedness or dizziness preceding his fall. His right hip pain which occurred suddenly after the fall was described as severe, 10 out of 10, sharp, intermittent. Pain was worsened with movement and there was no alleviating factors. He denies shortness of breath, cough, chest pain, fever, chills, nausea, vomiting, diarrhea, blurry vision, loss of appetite at home. He does have a recent history of upper respiratory infection. His fall was witnessed by his who then called 911. Patient was admitted to medical floor for further management was seen by orthopedic and subsequently had right hip arthroplasty done. Patient was stabilized medically and was transferred to acute rehabilitation unit for further physical therapy before she is discharged home with home care. . ALLERGIES: No known allergies HOME MEDICATIONS: Please see below. PAST MEDICAL HISTORY: Thoracic aortic aneurysm, stable Hyperlipidemia Hypertension CAD status post an STEMI, STEMI Aortic valve disease status post replacement GERD CVA with right-sided deficit Chronic back pain Pulmonary hypertension History of tobacco use History of alcohol abuse in the past PAST SURGICAL HISTORY: Right hip arthroplasty Aortic valve replacement in 1985 Hernia repair Tonsils and adenoids. Left hand surgery. Left knee arthroscopy. 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 HEENT: No eyes or ear pain. CARDIOVASCULAR: . No chest pain or palpitation. RESPIRATORY: No cough or shortness of breath. GENITOURINARY: , No dysuria, frequency. MUSCULOSKELETAL: Complaining of some pain at the right hip. GASTROINTESTINAL: , No nausea, vomiting, diarrhea. SKIN: No rash. NEUROLOGICAL: Baseline right-sided hemiparesis. No new weakness. PSYCHIATRIC: No anxiety, depression. ENDOCRINE: , No hypothyroidism. HEMATOLOGIC/LYMPHATIC: No anemia. ALLERGIC/IMMUNOLOGIC: No allergies. PHYSICAL EXAMINATION: VITAL SIGNS: Please see below. GENERAL APPEARANCE: Within normal limits. HEENT: PERRLA. Extraocular muscles intact. RESPIRATORY: Clear to A&P. CARDIOVASCULAR: S1, S2, regular. ABDOMEN: , Soft, nontender, bowel sounds present. EXTREMITIES: Is status post right hip arthroplasty with dressing. NEUROLOGICAL: Baseline right hemiparesis. No new focal motor or sensory deficit. PSYCHIATRIC: Normal. LABORATORY DATA: Please see below. ASSESSMENT/PLAN: 74-year-old male admitted under inpatient status for treatment of acute right displaced femoral neck fracture s/p right hip arthroplasty. Acute displaced right femoral neck fracture s/p right hip arthroplasty. No complications during or postoperatively. C/w PT/OT with WBAT, pain regimen. Anticoagulation includes coumadin with therapeutic lovenox BID bridging. Pain regimen: Percocet, tramadol PRN based on pain scale. Recommend premedicating prior to PT/OT. Patient transferred to acute rehabilitation unit for physical therapy with Dr. [place] before she is discharged home Nonrheumatic aortic valve disorder/history of severe aortic stenosis/status post aortic valve placement (mechanical): Last echocardiogram showed appropriate prosthetic function. No symptoms or signs of endocarditis. Endocarditis prophylaxis with ancef preop and postop was given. Will follow patient's INR today is more than 2.5 then we'll DC Lovenox and continue Coumadin Hypokalemia: Was corrected during inpatient stay, we will follow today's BMP and supplemented as needed CAD: Under well control. Stable. Continue all her home meds Hypertension: Under well control with current home meds. Continue the same Hyperlipidemia: Continue home meds including statin Thoracic Aortic aneurysm, stable: Further follow-up as an outpatient with the cardiology/medical policy specialist. CVA with right-sided hemiparesis: Baseline right-sided hemiparesis. No new focal motor or sensory deficit, continue physical therapy GERD: Continue PPIs as per orders Depression: Stable. Continue duloxetine Vital Signs/I&O Vital Signs Date Time Temp Pulse Resp B/P (MAP) Pulse Ox O2 Delivery O2 Flow Rate FiO2 10/24/19 09:36 75 128/75 10/24/19 06:00 97.5 18 96 Room Air I&O- Last 24 Hours up to 6 AM 10/24/19 06:00 Intake Total 300 ml Output Total 1100 ml Balance -800 ml Laboratory Data Labs 24H Laboratory Tests 2 10/24/19 06:15: Immature Granulocyte % (Auto) 1.0, Neutrophils (%) (Auto) 78.1H, Lymphocytes (%) (Auto) 8.7L, Monocytes (%) (Auto) 9.9H, Eosinophils (%) (Auto) 2.1, Basophils (%) (Auto) 0.2, Neutrophils # (Auto) 7.2, Lymphocytes # (Auto) 0.8L, Monocytes # (Auto) 0.9H, Eosinophils # (Auto) 0.2, Basophils # (Auto) 0.0, Nucleated Red Blood Cells % (auto) 0.0, Prothrombin Time 25.2H, Prothromb Time International Ratio 2.31, Anion Gap 5L, Glomerular Filtration Rate 59.8, Calcium Level 8.8, Total Bilirubin 0.8, Aspartate Amino Transf (AST/SGOT) 47H, Alanine Aminotransferase (ALT/SGPT) 38, Alkaline Phosphatase 80, Total Protein 6.6, Albumin 2.2L, Albumin/Globulin Ratio 0.50L CBC/BMP Laboratory Tests 10/24/19 06:15 Allergies Coded Allergies: No Known Allergies (Unverified , 07/15/16) Home Medications Scheduled Amiodarone HCl (Amiodarone HCl) 200 Mg Tablet, 200 MG PO DAILY, (Reported) Atorvastatin Calcium (Atorvastatin Calcium) 40 Mg Tablet, 40 MG PO QPM, (Reported) Carvedilol (Carvedilol) 25 Mg Tablet, 37.5 MG PO BID, (Reported) Chlorthalidone (Chlorthalidone) 25 Mg Tablet, 12.5 MG PO DAILY, (Reported) Docusate Sodium (Stool Softener) 100 Mg Capsule, 100 MG PO TID, (Reported) may take up to 3 caps Duloxetine Hcl (Duloxetine HCl) 30 Mg Capsule.dr, 60 MG PO QPM, (Reported) Eplerenone (Eplerenone) 25 Mg Tablet, 12.5 MG PO DAILY, (Reported) Pantoprazole Sodium (Pantoprazole Sodium) 40 Mg Tablet.dr, 40 MG PO DAILY, (Reported) Warfarin Sodium (Warfarin Sodium) 4 Mg Tablet, 4 MG PO 4XWK, (Reported) sun,mon,wed,fri Warfarin Sodium (Warfarin Sodium) 4 Mg Tablet, 2 MG PO 3XW, (Reported) e,,sat Scheduled PRN Acetaminophen (Acetaminophen) 500 Mg Tablet, 2 TAB PO BID PRN for LEAH for 30 Days, #60 Tramadol HCl (Tramadol HCl) 50 Mg Tablet, 1-2 TAB PO Q4H PRN for PAIN, #30 ALEXANDER GUAJARDO MD Oct 24, 2019 10:42
[2019-10-24] MEDS: traMADol 50 MG TAB PO PRN ×2 (12:18→20:45)
--- NOTE | 2019-10-24 12:22 | IPNPDOC ---
PM&R Progress Note DATE OF SERVICE: Oct 24, 2019 Chief I Dispatcher Progress Note SUbjective: Patient reporting he feels well today, working on standing in therapy. REVIEW OF SYSTEMS: The following is a completed review of systems and has been reviewed. Review of systems otherwise unremarkable. PAIN: Patient self reports right hip pain EYES: No recent vision changes EARS, NOSE, & THROAT: No throat pain, or dysphagia, or rhinorrhea CARDIOVASCULAR: Denies chest pain or palpitations PULMONARY: Denies shortness of breath, +dry cough GASTROINTESTINAL: Denies constipation/diarrhea GENITOURINARY: denies dysuria MUSCULOSKELETAL: right hip fracture NEUROLOGICAL:mild right sided paresis HEMATOLOGICAL: denies easy bruising SKIN: +surgical incision PSYCHIATRIC: Unremarkable All other review of systems found to be negative. PHYSICAL EXAMINATION: VITAL SIGNS: Please see below. GENERAL: Pleasant and cooperative. No acute distress. HEENT: PERRL. Extraocular movements intact. Clear conjunctiva CARDIOVASCULAR: Regular rate and rhythm. No murmurs, rubs, or gallops LUNGS: Clear to auscultation bilaterally. No wheezes. No rhonchi ABDOMEN: Soft, nontender, nondistended. Positive bowel sounds. Normal active bowel sounds]. NEUROLOGICAL: Alert and oriented times three. Cranial nerves II through XII grossly intact. Sensation grossly intact all 4limbs including 1 web space right foot EXTREMITIES:5\5 strength bilateral upper extremities. 4\5 strength right ankle DF/EHL and PF 5/5 strength in left lower extremity (limited due to recent surgery) SKIN:sacrum with blanchable erythema, right hip incision with mild edema/erythema, no induration ASSESSMENT:74-year-old M with past medical history of CVA with right sided weakness who presents status post PLAN: 1. Rehab- PT/OT advance gait and ADL training maintain total hip precautions for RLE, strengthen/stretch/maintain ROM all 4 limbs, dynamic balance training 2. Neuro: no active issue 3. Ortho: s/p right hip fracture with shauna-arthroplasty, f/u ortho- consulted -maintain WBAT with hip precautions 4. Cardiac: hx of mechanical valve replacement with Afib, c/u warfarin, monitor and manage daily INR, c/u Carvedilol and Amiodarone -f/u PMD and cardiology (Dr. Alfaro) for known thoracic aortic aneurysm -hx of diastolic CHF c/u diuretics, fluid restrictions, daily weight -patient recently started on potassium supplements, will c/u and manage -HLD c/u statin -medicine consulted to assist in overall management 5. Resp: encourage incentive spirometry, monitor for infection 6. GI ppx: Protonix 7. DVT ppx: warfarin, TEDs 8. Pain: Tylenol 1g TID standing, tramadol prn 9. Psych: hx of depression, c/u Cymbalta 60mg qHS 10. Skin: c/u barrier cream 11. Dispo: TBD Allergies Coded Allergies: No Known Allergies (Unverified , 07/15/16) Vital Signs Vital Signs Date Time Temp Pulse Resp B/P (MAP) Pulse Ox O2 Delivery O2 Flow Rate FiO2 10/24/19 09:36 75 128/75 10/24/19 06:00 97.5 18 96 Room Air Laboratory Data CBC/BMP Laboratory Tests 10/24/19 06:15 Labs 24H Laboratory Tests 2 10/24/19 06:15: Immature Granulocyte % (Auto) 1.0, Neutrophils (%) (Auto) 78.1H, Lymphocytes (%) (Auto) 8.7L, Monocytes (%) (Auto) 9.9H, Eosinophils (%) (Auto) 2.1, Basophils (%) (Auto) 0.2, Neutrophils # (Auto) 7.2, Lymphocytes # (Auto) 0.8L, Monocytes # (Auto) 0.9H, Eosinophils # (Auto) 0.2, Basophils # (Auto) 0.0, Nucleated Red Blood Cells % (auto) 0.0, Prothrombin Time 25.2H, Prothromb Time International Ratio 2.31, Anion Gap 5L, Glomerular Filtration Rate 59.8, Calcium Level 8.8, Total Bilirubin 0.8, Aspartate Amino Transf (AST/SGOT) 47H, Alanine Aminotransferase (ALT/SGPT) 38, Alkaline Phosphatase 80, Total Protein 6.6, Albumin 2.2L, Albumin/Globulin Ratio 0.50L Current Medications Current Medications Current Medications Medications (Trade) Dose Ordered Sig/Cassandra Route PRN Reason Start Time Stop Time Status Last Admin Dose Admin Acetaminophen (Tylenol Tab) 1,000 mg TID PO 10/23/19 16:00 10/24/19 09:36 Albuterol/ Ipratropium (Duoneb (Ipr 0.5mg/Alb 2.5mg)) 3 ml RTID NEB 10/23/19 14:00 10/24/19 07:43 Amiodarone HCl (Pacerone, Cordarone) 200 mg DAILY PO 10/24/19 09:00 10/24/19 09:36 Atorvastatin Calcium (Lipitor) 40 mg QHS PO 10/23/19 21:00 10/23/19 20:44 Bisacodyl (Dulcolax Suppository) 10 mg DAILYPRN PRN [place] CONSTIPATION 10/23/19 12:15 Carvedilol (COReg) 37.5 mg BID PO 10/23/19 21:00 10/24/19 09:36 Chlorthalidone (Hygroton, Chlorthalidone) 12.5 mg DAILY PO 10/24/19 09:00 10/24/19 09:35 Docusate Sodium (Colace) 100 mg BID PO 10/23/19 21:00 10/24/19 09:36 Duloxetine HCl (Cymbalta) 60 mg QHS PO 10/23/19 21:00 10/23/19 20:41 Pantoprazole Sodium (Protonix) 40 mg DAILY PO 10/24/19 09:00 10/24/19 09:36 Potassium Chloride (Micro-K Extencaps) 20 meq TID PO 10/23/19 16:00 10/24/19 09:36 Senna (Senokot) 1 tab QHS PO 10/23/19 21:00 10/23/19 20:42 Spironolactone (Aldactone) 12.5 mg DAILY PO 10/24/19 09:00 10/24/19 09:40 Tramadol HCl (Ultram) 50 mg Q4HP PRN PO MODERATE PAIN (PS 5-7) 10/23/19 12:15 Warfarin Sodium (Coumadin) 4 mg DAILY@1700 PO 10/23/19 17:00 10/23/19 17:06 JAC LUNA MD Oct 24, 2019 12:22
[2019-10-24 14:00] VITALS: BP 130/66
[2019-10-24] MEDS: WARFARIN SOD 4 MG TAB PO SCH (16:19)
[2019-10-24] MEDS: ATORVASTATIN 20 MG TAB PO SCH (20:47)
[2019-10-24] MEDS: DULoxetine 30 MG CAP (CYMBALTA) PO SCH (20:47)
[2019-10-24] MEDS: SENNA 8.6 MG TAB (SENOKOT) PO SCH (20:48)
[2019-10-24 22:00] VITALS: BP 139/72
[2019-10-25] MEDS: traMADol 50 MG TAB PO PRN (05:08)
[2019-10-25 05:46] VITALS: BP 123/72
[2019-10-25 05:49] LABS: BASO % 0.4 % (0.0-1.0); EOS # 0.3 10^3/uL (0.0-0.5); EOS % 3.1 % (0.0-3.0); HEMOGLOBIN 9.4 g/dl (13.5-17.5); LYMPH % 11.5 % (24.0-44.0); MEAN CORPUSCULAR HEMOGLOBIN 27.3 pg (27.0-33.0); MEAN CORPUSCULAR HGB CONC 32.4 g/dl (32.0-36.5); MEAN CORPUSCULAR VOLUME 84.3 fl (80.0-96.0); MONO # 0.9 10^3/uL (0.0-0.8); MONO % 11.4 % (0.0-5.0); NEUTROPHILS # 5.9 10^3/uL (1.5-8.5); NEUTROPHILS % 71.7 % (36.0-66.0); PLATELET COUNT, AUTOMATED 277 10^3/uL (150-450); RED BLOOD COUNT 3.44 10^6/uL (4.30-6.10); WHITE BLOOD COUNT 8.3 10^3/uL (4.0-10.0)
[2019-10-25 05:58] LABS: INR 2.78; PROTHROMBIN TIME 29.2 SECONDS (11.8-14.0)
[2019-10-25 06:17] LABS: BLOOD UREA NITROGEN 37 MG/DL (7-18); CALCIUM LEVEL 7.7 MG/DL (8.8-10.2); CARBON DIOXIDE LEVEL 28 MEQ/L (21-32); CHLORIDE LEVEL 100 MEQ/L (98-107); GLOMERULAR FILTRATION RATE > 60.0 (>42); GLUCOSE, FASTING 104 MG/DL (70-100); POTASSIUM SERUM 4.3 MEQ/L (3.5-5.1); SODIUM LEVEL 134 MEQ/L (136-145)
[2019-10-25] MEDS: IPRATROPIUM 0.5MG/ALBUTEROL 2.5MG INH SOL UD 3ML (DUONEB)(J7620) NEB SCH ×3 (08:00→20:07)
[2019-10-25] MEDS: ACETAMINOPHEN 500 MG TAB PO SCH ×3 (09:26→20:23)
[2019-10-25] MEDS: DOCUSATE SODIUM 100 MG CAP PO SCH ×2 (09:26→20:24)
[2019-10-25] MEDS: CHLORTHALIDONE 12.5MG PER 1/2 TABLET PO SCH (09:26)
[2019-10-25] MEDS: AMIODARONE 200 MG TAB (PACERONE) PO SCH (09:27)
[2019-10-25] MEDS: POTASSIUM CHLORIDE 10 MEQ SR TABLET PO SCH ×3 (09:27→20:24)
[2019-10-25] MEDS: CARVedilol 12.5 MG TAB PO SCH ×2 (09:27→20:24)
[2019-10-25] MEDS: PANTOPRAZOLE 40MG TAB (PROTONIX) PO SCH (09:27)
[2019-10-25] MEDS: SPIRONOLACTONE 12.5MG PER 1/2 TABLET PO SCH (09:27)
[2019-10-25] MEDS: REMEDY PHYTOPLEX Z-GUARD PASTE 113GM TUBE (FROM STOREROOM PRODUCT) TOP SCH ×3 (09:28→20:25)
[2019-10-25 10:30] VITALS: BP 118/73
--- NOTE | 2019-10-25 11:23 | IPNPDOC ---
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 he reprots he did not sleep at all last night, but does not want sleep medication. PHYSICAL EXAMINATION: VITAL SIGNS: Please see below. GENERAL: Pleasant and cooperative. No acute distress. HEENT: PERRL. Extraocular movements intact. Clear conjunctiva CARDIOVASCULAR: Regular rate and rhythm. No murmurs, rubs, or gallops LUNGS: Clear to auscultation bilaterally. No wheezes. No rhonchi ABDOMEN: Soft, nontender, nondistended. Positive bowel sounds. Normal active bowel sounds]. NEUROLOGICAL: Alert and oriented times three. Cranial nerves II through XII grossly intact. Sensation grossly intact all 4limbs including 1 web space right foot EXTREMITIES:5\5 strength bilat upper extremity, 4\5 strength right ankle DF/EHL and PF (limited due to recent surgery) 5/5 strength in left lower extremity SKIN:sacrum with blanchable erythema, right hip incision with mild edema/erythema, no induration -right heel with blister (unstageable and present on admission) ASSESSMENT:74-year-old M with past medical history of CVA with right sided weakness who presents status post PLAN: 1. Rehab- PT/OT advance gait and ADL training maintain total hip precautions for RLE, strengthen/stretch/maintain ROM all 4 limbs, dynamic balance training 2. Neuro: patient reporting his right arm feels a little weaker since surgery, physical exam with very subtle change in MMT still a 5/5, however will order MRI to rule out new infarct 3. Ortho: s/p right hip fracture with shauna-arthroplasty, f/u ortho- consulted -maintain WBAT with hip precautions 4. Cardiac: hx of mechanical valve replacement with Afib, c/u warfarin, monitor and manage daily INR, c/u Carvedilol and Amiodarone -f/u PMD and cardiology (Dr. Alfaro) for known thoracic aortic aneurysm -hx of diastolic CHF c/u diuretics, fluid restrictions, daily weight -patient recently started on potassium supplements, will c/u and manage -HLD c/u statin -medicine consulted to assist in overall management 5. Resp: encourage incentive spirometry, monitor for infection 6. GI ppx: Protonix 7. DVT ppx: warfarin, TEDs 8. Pain: Tylenol 1g TID standing, tramadol prn 9. Psych: hx of depression, c/u Cymbalta 60mg qHS 10. Skin: c/u barrier cream, daily skin-prep and dressing change to right heel 11. Dispo: TBD Allergies Coded Allergies: No Known Allergies (Unverified , 07/15/16) Vital Signs Vital Signs Date Time Temp Pulse Resp B/P (MAP) Pulse Ox O2 Delivery O2 Flow Rate FiO2 10/25/19 09:27 71 123/72 10/25/19 05:46 97.8 18 93 Room Air Laboratory Data CBC/BMP Laboratory Tests 10/25/19 05:31 Labs 24H Laboratory Tests 2 10/25/19 05:31: Immature Granulocyte % (Auto) 1.9, Neutrophils (%) (Auto) 71.7H, Lymphocytes (%) (Auto) 11.5L, Monocytes (%) (Auto) 11.4H, Eosinophils (%) (Auto) 3.1H, Basophils (%) (Auto) 0.4, Neutrophils # (Auto) 5.9, Lymphocytes # (Auto) 1.0L, Monocytes # (Auto) 0.9H, Eosinophils # (Auto) 0.3, Basophils # (Auto) 0.0, Nucleated Red Blood Cells % (auto) 0.0, Prothrombin Time 29.2H, Prothromb Time International R atio 2.78, Anion Gap 6L, Glomerular Filtration Rate > 60.0, Calcium Level 7.7L Current Medications Current Medications Current Medications Medications (Trade) Dose Ordered Sig/Cassandra Route PRN Reason Start Time Stop Time Status Last Admin Dose Admin Acetaminophen (Tylenol Tab) 1,000 mg TID PO 10/23/19 16:00 10/25/19 09:26 Albuterol/ Ipratropium (Duoneb (Ipr 0.5mg/Alb 2.5mg)) 3 ml RTID NEB 10/23/19 14:00 10/24/19 19:48 Amiodarone HCl (Pacerone, Cordarone) 200 mg DAILY PO 10/24/19 09:00 10/25/19 09:27 Atorvastatin Calcium (Lipitor) 40 mg QHS PO 10/23/19 21:00 10/24/19 20:47 Bisacodyl (Dulcolax Suppository) 10 mg DAILYPRN PRN [place] CONSTIPATION 10/23/19 12:15 Carvedilol (COReg) 37.5 mg BID PO 10/23/19 21:00 10/25/19 09:27 Chlorthalidone (Hygroton, Chlorthalidone) 12.5 mg DAILY PO 10/24/19 09:00 10/25/19 09:26 Docusate Sodium (Colace) 100 mg BID PO 10/23/19 21:00 10/25/19 09:26 Duloxetine HCl (Cymbalta) 60 mg QHS PO 10/23/19 21:00 10/24/19 20:47 Pantoprazole Sodium (Protonix) 40 mg DAILY PO 10/24/19 09:00 10/25/19 09:27 Potassium Chloride (Micro-K Extencaps) 20 meq TID PO 10/23/19 16:00 10/25/19 09:27 Senna (Senokot) 1 tab QHS PO 10/23/19 21:00 10/23/19 20:42 Spironolactone (Aldactone) 12.5 mg DAILY PO 10/24/19 09:00 10/25/19 09:27 Tramadol HCl (Ultram) 50 mg Q4HP PRN PO MODERATE PAIN (PS 5-7) 10/23/19 12:15 10/25/19 05:08 Warfarin Sodium (Coumadin) 4 mg DAILY@1700 PO 10/23/19 17:00 10/24/19 16:19 JAC LUNA MD Oct 25, 2019 11:23
[2019-10-25 14:30] VITALS: BP 132/80
[2019-10-25] MEDS: WARFARIN SOD 4 MG TAB PO SCH (16:35)
--- NOTE | 2019-10-25 19:44 | REP ---
MRI BRAIN WITHOUT CONTRAST: HISTORY: Rule out new infarction. Comparison CT study of the brain is from October 18, 2019. TECHNIQUE: Axial and sagittal imaging planes are utilized for T1 and T2-weighted scans. Sequences include spin-echo, fast spin echo, FLAIR, and diffusion weighted sequences. MRI FINDINGS: No bony calvarial lesion is seen. Upper cervical cord and craniocervical junction are unremarkable. No intraorbital abnormality is seen. The visualized paranasal sinuses are clear. Diffusion weighted scans show no evidence to suggest acute ischemia. There is an area of old encephalomalacia representing an old cortical infarct in the right occipital lobe. There is a periventricular lacunar infarct in the right frontal lobe which is also old. There are fairly extensive small vessel atherosclerotic changes. There is another area of focal encephalomalacia in the paramedian region of the left parietal lobe consistent with an old cortical infarct in this location. This it is also visible on CT study and is felt to be unchanged. No evidence of hemorrhage or intracranial mass lesion is seen. Small vessel changes are noted. IMPRESSION: Multiple old areas of infarction. Small vessel changes. No acute intracranial infarct is seen. No evidence of hemorrhage. No mass lesion noted. Electronically Signed by Sarwat Helm MD 10/26/2019 08:05 A
[2019-10-25] MEDS: ATORVASTATIN 20 MG TAB PO SCH (20:23)
[2019-10-25] MEDS: DULoxetine 30 MG CAP (CYMBALTA) PO SCH (20:24)
[2019-10-25] MEDS: SENNA 8.6 MG TAB (SENOKOT) PO SCH (20:24)
[2019-10-25 22:00] VITALS: BP 140/81
[2019-10-26 05:49] LABS: BASO % 0.5 % (0.0-1.0); EOS # 0.2 10^3/uL (0.0-0.5); EOS % 2.6 % (0.0-3.0); HEMATOCRIT 30.6 % (42.0-52.0); HEMOGLOBIN 9.9 g/dl (13.5-17.5); LYMPH # 1.1 10^3/uL (1.5-5.0); LYMPH % 13.1 % (24.0-44.0); MEAN CORPUSCULAR HEMOGLOBIN 27.9 pg (27.0-33.0); MEAN CORPUSCULAR HGB CONC 32.4 g/dl (32.0-36.5); MEAN CORPUSCULAR VOLUME 86.2 fl (80.0-96.0); MONO % 11.9 % (0.0-5.0); NEUTROPHILS # 5.6 10^3/uL (1.5-8.5); NEUTROPHILS % 69.1 % (36.0-66.0); PLATELET COUNT, AUTOMATED 326 10^3/uL (150-450); RED BLOOD COUNT 3.55 10^6/uL (4.30-6.10); WHITE BLOOD COUNT 8.1 10^3/uL (4.0-10.0)
[2019-10-26 05:59] LABS: INR 3.89; PROTHROMBIN TIME 38.3 SECONDS (11.8-14.0)
[2019-10-26 06:00] VITALS: BP 154/70
[2019-10-26 06:11] LABS: BLOOD UREA NITROGEN 34 MG/DL (7-18); CALCIUM LEVEL 8.2 MG/DL (8.8-10.2); CARBON DIOXIDE LEVEL 31 MEQ/L (21-32); CHLORIDE LEVEL 101 MEQ/L (98-107); CREATININE FOR GFR 1.05 MG/DL (0.70-1.30); GLOMERULAR FILTRATION RATE > 60.0 (>42); GLUCOSE, FASTING 103 MG/DL (70-100); POTASSIUM SERUM 4.3 MEQ/L (3.5-5.1); SODIUM LEVEL 137 MEQ/L (136-145)
[2019-10-26] MEDS: IPRATROPIUM 0.5MG/ALBUTEROL 2.5MG INH SOL UD 3ML (DUONEB)(J7620) NEB SCH ×3 (07:04→19:35)
[2019-10-26] MEDS: ACETAMINOPHEN 500 MG TAB PO SCH ×3 (08:44→20:04)
[2019-10-26] MEDS: SPIRONOLACTONE 12.5MG PER 1/2 TABLET PO SCH (08:44)
[2019-10-26] MEDS: AMIODARONE 200 MG TAB (PACERONE) PO SCH (08:44)
[2019-10-26] MEDS: CHLORTHALIDONE 12.5MG PER 1/2 TABLET PO SCH (08:44)
[2019-10-26] MEDS: PANTOPRAZOLE 40MG TAB (PROTONIX) PO SCH (08:45)
[2019-10-26] MEDS: POTASSIUM CHLORIDE 10 MEQ SR TABLET PO SCH ×3 (08:45→20:03)
[2019-10-26] MEDS: CARVedilol 12.5 MG TAB PO SCH ×2 (08:45→20:05)
[2019-10-26] MEDS: DOCUSATE SODIUM 100 MG CAP PO SCH ×2 (08:45→20:03)
[2019-10-26] MEDS: REMEDY PHYTOPLEX Z-GUARD PASTE 113GM TUBE (FROM STOREROOM PRODUCT) TOP SCH ×3 (08:46→20:05)
[2019-10-26 14:00] VITALS: BP 122/64
--- NOTE | 2019-10-26 15:12 | IPNPDOC ---
PM&R Progress Note DATE OF SERVICE: Oct 26, 2019 Toe Former Progress Note Subjective: Patient reports he threw out the heel float boot provided for him on day of admission by instructing someone to do it for him. He expressed understanding that his heel ulcer could lead to bone infection and possible amputation if not properly treated on the floor and agreed to use new heel float boot. He was also instructed to avoid wearing his sneakers on the right and use a post-op show instead. PHYSICAL EXAMINATION: VITAL SIGNS: Please see below. GENERAL: Pleasant and cooperative. No acute distress. HEENT: PERRL. Extraocular movements intact. Clear conjunctiva CARDIOVASCULAR: Regular rate and rhythm. No murmurs, rubs, or gallops LUNGS: Clear to auscultation bilaterally. No wheezes. No rhonchi ABDOMEN: Soft, nontender, nondistended. Positive bowel sounds. Normal active bowel sounds]. NEUROLOGICAL: Alert and oriented times three. Cranial nerves II through XII grossly intact. Sensation grossly intact all 4limbs including 1 web space right foot EXTREMITIES:5\5 strength bilat upper extremity, 4\5 strength right ankle DF/EHL and PF (limited due to recent surgery) 5/5 strength in left lower extremity SKIN:sacrum with blanchable erythema, right hip incision with mild edema/erythema, no induration -right heel with blister (unstageable and present on admission) ASSESSMENT:74-year-old M with past medical history of CVA with right sided weakness who presents status post PLAN: 1. Rehab- PT/OT advance gait and ADL training maintain total hip precautions for RLE, strengthen/stretch/maintain ROM all 4 limbs, dynamic balance training 2. Neuro: patient reporting his right arm feels a little weaker since surgery, physical exam with very subtle change in MMT still a 5/5-repeat MRI negative for new infarct 3. Ortho: s/p right hip fracture with shauna-arthroplasty, f/u ortho- consulted -maintain WBAT with hip precautions 4. Cardiac: hx of mechanical valve replacement with Afib, c/u warfarin, monitor and manage daily INR, c/u Carvedilol and Amiodarone -f/u PMD and cardiology (Dr. Alfaro) for known thoracic aortic aneurysm -hx of diastolic CHF c/u diuretics, fluid restrictions, daily weight -patient recently started on potassium supplements, will c/u and manage -HLD c/u statin -medicine consulted to assist in overall management 5. Resp: encourage incentive spirometry, monitor for infection 6. GI ppx: Protonix 7. DVT ppx: warfarin, TEDs 8. Pain: Tylenol 1g TID standing, tramadol prn 9. Psych: hx of depression, c/u Cymbalta 60mg qHS 10. Skin: c/u barrier cream, daily skin-prep and dressing change to right heel, heel float boot- patient reports he threw out the 1st heel float boot because he doesn't like wearing it, but agreed today to wear it knowing better what the consequences could be -post-op shoe to the right when in therapy 11. Dispo: TBD Allergies Coded Allergies: No Known Allergies (Unverified , 07/15/16) Vital Signs Vital Signs Date Time Temp Pulse Resp B/P (MAP) Pulse Ox O2 Delivery O2 Flow Rate FiO2 10/26/19 14:00 98.9 70 18 122/64 (83) 95 Room Air Laboratory Data CBC/BMP Laboratory Tests 10/26/19 05:08 10/26/19 05:11 Labs 24H Laboratory Tests 2 10/25/19 16:54: Urine Color YELLOW, Urine Appearance CLEAR, Urine pH 7.0, Urine Specific [place] 1.018, Urine Protein NEGATIVE, Urine Glucose (UA) NEGATIVE, Urine Ketones NEGATIVE, Urine Blood NEGATIVE, Urine Nitrite NEGATIVE, Urine Bilirubin NEGATIVE, Urine Urobilinogen 4.0H, Urine Leukocyte Esterase NEGATIVE, Urine WBC (Auto) 1, Urine RBC (Auto) 4H, Urine Hyaline Casts (Auto) 0, Urine Bacteria (Auto) NEGATIVE, Urine Squamous Epithelial Cells 0, Urine Mucus (Auto) SMALL, Urine Sperm (Auto) 10/26/19 05:08: Immature Granulocyte % (Auto) 2.8, Neutrophils (%) (Auto) 69.1H, Lymphocytes (%) (Auto) 13.1L, Monocytes (%) (Auto) 11.9H, Eosinophils (%) (Auto) 2.6, Basophils (%) (Auto) 0.5, Neutrophils # (Auto) 5.6, Lymphocytes # (Auto) 1.1L, Monocytes # (Auto) 1.0H, Eosinophils # (Auto) 0.2, Basophils # (Auto) 0.0, Nucleated Red Blood Cells % (auto) 0.2H 10/26/19 05:11: Prothrombin Time 38.3H, Prothromb Time International Ratio 3.89, Anion Gap 5L, Glomerular Filtration Rate > 60.0, Calcium Level 8.2L Current Medications Current Medications Current Medications Medications (Trade) Dose Ordered Sig/Cassandra Route PRN Reason Start Time Stop Time Status Last Admin Dose Admin Acetaminophen (Tylenol Tab) 1,000 mg TID PO 10/23/19 16:00 10/26/19 08:44 Albuterol/ Ipratropium (Duoneb (Ipr 0.5mg/Alb 2.5mg)) 3 ml RTID NEB 10/23/19 14:00 10/26/19 13:54 Amiodarone HCl (Pacerone, Cordarone) 200 mg DAILY PO 10/24/19 09:00 10/26/19 08:44 Atorvastatin Calcium (Lipitor) 40 mg QHS PO 10/23/19 21:00 10/25/19 20:23 Bisacodyl (Dulcolax Suppository) 10 mg DAILYPRN PRN [place] CONSTIPATION 10/23/19 12:15 Carvedilol (COReg) 37.5 mg BID PO 10/23/19 21:00 10/26/19 08:45 Chlorthalidone (Hygroton, Chlorthalidone) 12.5 mg DAILY PO 10/24/19 09:00 10/26/19 08:44 Docusate Sodium (Colace) 100 mg BID PO 10/23/19 21:00 10/26/19 08:45 Duloxetine HCl (Cymbalta) 60 mg QHS PO 10/23/19 21:00 10/25/19 20:24 Pantoprazole Sodium (Protonix) 40 mg DAILY PO 10/24/19 09:00 10/26/19 08:45 Potassium Chloride (Micro-K Extencaps) 20 meq TID PO 10/23/19 16:00 10/26/19 08:45 Senna (Senokot) 1 tab QHS PO 10/23/19 21:00 10/25/19 20:24 Spironolactone (Aldactone) 12.5 mg DAILY PO 10/24/19 09:00 10/26/19 08:44 Tramadol HCl (Ultram) 50 mg Q4HP PRN PO MODERATE PAIN (PS 5-7) 10/23/19 12:15 10/25/19 05:08 Warfarin Sodium (Coumadin) 3 mg DAILY@17 PO 10/27/19 17:00 Warfarin Sodium (Coumadin) 4 mg DAILY@1700 PO 10/23/19 17:00 10/26/19 10:58 DC 10/25/19 16:35 JAC LUNA MD Oct 26, 2019 15:12
[2019-10-26 20:00] VITALS: BP 141/72
[2019-10-26] MEDS: SENNA 8.6 MG TAB (SENOKOT) PO SCH (20:03)
[2019-10-26] MEDS: DULoxetine 30 MG CAP (CYMBALTA) PO SCH (20:04)
[2019-10-26] MEDS: ATORVASTATIN 20 MG TAB PO SCH (20:04)
[2019-10-27 06:00] VITALS: BP 119/56
[2019-10-27 06:58] LABS: INR 3.44; PROTHROMBIN TIME 34.6 SECONDS (11.8-14.0)
[2019-10-27] MEDS: IPRATROPIUM 0.5MG/ALBUTEROL 2.5MG INH SOL UD 3ML (DUONEB)(J7620) NEB SCH ×3 (07:17→19:45)
[2019-10-27] MEDS: CARVedilol 12.5 MG TAB PO SCH ×2 (08:09→20:53)
[2019-10-27] MEDS: AMIODARONE 200 MG TAB (PACERONE) PO SCH (08:09)
[2019-10-27] MEDS: DOCUSATE SODIUM 100 MG CAP PO SCH ×2 (08:09→20:53)
[2019-10-27] MEDS: POTASSIUM CHLORIDE 10 MEQ SR TABLET PO SCH ×3 (08:09→20:52)
[2019-10-27] MEDS: PANTOPRAZOLE 40MG TAB (PROTONIX) PO SCH (08:10)
[2019-10-27] MEDS: SPIRONOLACTONE 12.5MG PER 1/2 TABLET PO SCH (08:10)
[2019-10-27] MEDS: CHLORTHALIDONE 12.5MG PER 1/2 TABLET PO SCH (08:10)
[2019-10-27] MEDS: ACETAMINOPHEN 500 MG TAB PO SCH ×3 (08:10→20:51)
[2019-10-27] MEDS: REMEDY PHYTOPLEX Z-GUARD PASTE 113GM TUBE (FROM STOREROOM PRODUCT) TOP SCH ×3 (08:10→20:54)
[2019-10-27 14:00] VITALS: BP 151/74
[2019-10-27] MEDS ORDERED: WARFARIN SOD 3 MG TAB PO SCH (17:00)
[2019-10-27 20:00] VITALS: BP 159/75
[2019-10-27 20:43] VITALS: BP 148/76
[2019-10-27] MEDS: SENNA 8.6 MG TAB (SENOKOT) PO SCH (20:52)
[2019-10-27] MEDS: ATORVASTATIN 20 MG TAB PO SCH (20:52)
[2019-10-27] MEDS: DULoxetine 30 MG CAP (CYMBALTA) PO SCH (20:54)
[2019-10-28 04:36] VITALS: BP 121/76
[2019-10-28 07:06] LABS: INR 2.86; PROTHROMBIN TIME 29.9 SECONDS (11.8-14.0)
[2019-10-28] MEDS: IPRATROPIUM 0.5MG/ALBUTEROL 2.5MG INH SOL UD 3ML (DUONEB)(J7620) NEB SCH ×3 (07:33→19:54)
[2019-10-28] MEDS: POTASSIUM CHLORIDE 10 MEQ SR TABLET PO SCH ×3 (08:20→20:51)
[2019-10-28] MEDS: ACETAMINOPHEN 500 MG TAB PO SCH ×3 (08:20→20:52)
[2019-10-28] MEDS: PANTOPRAZOLE 40MG TAB (PROTONIX) PO SCH (08:20)
[2019-10-28] MEDS: AMIODARONE 200 MG TAB (PACERONE) PO SCH (08:21)
[2019-10-28] MEDS: CARVedilol 12.5 MG TAB PO SCH ×2 (08:21→20:51)
[2019-10-28] MEDS: SPIRONOLACTONE 12.5MG PER 1/2 TABLET PO SCH (08:21)
[2019-10-28] MEDS: DOCUSATE SODIUM 100 MG CAP PO SCH ×2 (08:21→20:51)
[2019-10-28] MEDS: CHLORTHALIDONE 12.5MG PER 1/2 TABLET PO SCH (08:21)
[2019-10-28] MEDS: REMEDY PHYTOPLEX Z-GUARD PASTE 113GM TUBE (FROM STOREROOM PRODUCT) TOP SCH ×3 (08:21→20:52)
[2019-10-28 14:00] VITALS: BP 132/76
[2019-10-28] MEDS: WARFARIN SOD 2.5 MG TAB PO SCH (16:16)
[2019-10-28 20:00] VITALS: BP 168/81
[2019-10-28] MEDS: SENNA 8.6 MG TAB (SENOKOT) PO SCH (20:50)
[2019-10-28] MEDS: DULoxetine 30 MG CAP (CYMBALTA) PO SCH (20:51)
[2019-10-28] MEDS: ATORVASTATIN 20 MG TAB PO SCH (20:52)
[2019-10-29 06:17] VITALS: BP 133/72
[2019-10-29 06:52] LABS: BASO % 0.3 % (0.0-1.0); EOS # 0.1 10^3/uL (0.0-0.5); EOS % 1.3 % (0.0-3.0); HEMATOCRIT 34.1 % (42.0-52.0); HEMOGLOBIN 10.5 g/dl (13.5-17.5); LYMPH % 11.6 % (24.0-44.0); MEAN CORPUSCULAR HEMOGLOBIN 26.7 pg (27.0-33.0); MEAN CORPUSCULAR HGB CONC 30.8 g/dl (32.0-36.5); MEAN CORPUSCULAR VOLUME 86.8 fl (80.0-96.0); MONO # 0.7 10^3/uL (0.0-0.8); MONO % 8.2 % (0.0-5.0); NEUTROPHILS # 6.7 10^3/uL (1.5-8.5); NEUTROPHILS % 76.3 % (36.0-66.0); PLATELET COUNT, AUTOMATED 423 10^3/uL (150-450); RED BLOOD COUNT 3.93 10^6/uL (4.30-6.10); WHITE BLOOD COUNT 8.8 10^3/uL (4.0-10.0)
[2019-10-29 07:02] LABS: INR 2.41; PROTHROMBIN TIME 26.1 SECONDS (11.8-14.0)
[2019-10-29 07:20] LABS: BLOOD UREA NITROGEN 28 MG/DL (7-18); CALCIUM LEVEL 8.4 MG/DL (8.8-10.2); CARBON DIOXIDE LEVEL 26 MEQ/L (21-32); CHLORIDE LEVEL 105 MEQ/L (98-107); CREATININE FOR GFR 1.12 MG/DL (0.70-1.30); GLOMERULAR FILTRATION RATE > 60.0 (>42); GLUCOSE, FASTING 103 MG/DL (70-100); POTASSIUM SERUM 4.1 MEQ/L (3.5-5.1); SODIUM LEVEL 139 MEQ/L (136-145)
[2019-10-29] MEDS: IPRATROPIUM 0.5MG/ALBUTEROL 2.5MG INH SOL UD 3ML (DUONEB)(J7620) NEB SCH ×3 (07:42→19:24)
[2019-10-29] MEDS: traMADol 50 MG TAB PO PRN (08:53)
[2019-10-29] MEDS: SPIRONOLACTONE 12.5MG PER 1/2 TABLET PO SCH (08:54)
[2019-10-29] MEDS: POTASSIUM CHLORIDE 10 MEQ SR TABLET PO SCH ×3 (08:54→21:36)
[2019-10-29] MEDS: CHLORTHALIDONE 12.5MG PER 1/2 TABLET PO SCH (08:54)
[2019-10-29] MEDS: AMIODARONE 200 MG TAB (PACERONE) PO SCH (08:54)
[2019-10-29] MEDS: PANTOPRAZOLE 40MG TAB (PROTONIX) PO SCH (08:54)
[2019-10-29] MEDS: DOCUSATE SODIUM 100 MG CAP PO SCH ×2 (08:54→21:36)
[2019-10-29] MEDS: ACETAMINOPHEN 500 MG TAB PO SCH ×3 (08:54→21:35)
[2019-10-29] MEDS: CARVedilol 12.5 MG TAB PO SCH ×2 (08:56→21:36)
[2019-10-29] MEDS: REMEDY PHYTOPLEX Z-GUARD PASTE 113GM TUBE (FROM STOREROOM PRODUCT) TOP SCH ×3 (08:57→21:37)
--- NOTE | 2019-10-29 11:54 | IPNPDOC ---
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 He reports urinary frequency, but that this is his norm. REVIEW OF SYSTEMS: The following is a completed review of systems and has been reviewed. Review of systems otherwise unremarkable. PAIN: Patient self reports right hip pain EYES: No recent vision changes EARS, NOSE, & THROAT: No throat pain, or dysphagia, or rhinorrhea CARDIOVASCULAR: Denies chest pain or palpitations PULMONARY: Denies shortness of breath, +dry cough GASTROINTESTINAL: Denies constipation/diarrhea GENITOURINARY: denies dysuria, +urinary frequency (chronic) MUSCULOSKELETAL: right hip fracture NEUROLOGICAL:mild right sided paresis HEMATOLOGICAL: denies easy bruising SKIN: +surgical incision PSYCHIATRIC: Unremarkable All other review of systems found to be negative. PHYSICAL EXAMINATION: VITAL SIGNS: Please see below. GENERAL: Pleasant and cooperative. No acute distress. HEENT: PERRL. Extraocular movements intact. Clear conjunctiva CARDIOVASCULAR: Regular rate and rhythm. No murmurs, rubs, or gallops LUNGS: Clear to auscultation bilaterally. No wheezes. No rhonchi ABDOMEN: Soft, nontender, nondistended. Positive bowel sounds. Normal active bowel sounds]. NEUROLOGICAL: Alert and oriented times three. Cranial nerves II through XII grossly intact. Sensation grossly intact all 4limbs including 1 web space right foot EXTREMITIES:5\5 strength bilat upper extremity, 4\5 strength right ankle DF/EHL and PF (limited due to recent surgery) 5/5 strength in left lower extremity SKIN:sacrum with blanchable erythema, right hip incision with mild edema/erythem a, no induration -right heel with blister (unstageable and present on admission) ASSESSMENT:74-year-old M with past medical history of CVA with right sided weakness who presents status post PLAN: 1. Rehab- PT/OT advance gait and ADL training maintain total hip precautions for RLE, strengthen/stretch/maintain ROM all 4 limbs, dynamic balance training 2. Neuro: patient reporting his right arm feels a little weaker since surgery, physical exam with very subtle change in MMT still a 5/5-repeat MRI negative for new infarct-stable 3. Ortho: s/p right hip fracture with shauna-arthroplasty, f/u ortho- consulted -maintain WBAT with hip precautions 4. Cardiac: hx of mechanical valve replacement with Afib, c/u warfarin, monitor and manage daily INR, c/u Carvedilol and Amiodarone -f/u PMD and cardiology (Dr. Alfaro) for known thoracic aortic aneurysm -hx of diastolic CHF c/u diuretics, fluid restrictions, daily weight -patient recently started on potassium supplements, will c/u and manage -HLD c/u statin -medicine consulted to assist in overall management 5. Resp: encourage incentive spirometry, monitor for infection 6. GI ppx: Protonix 7. DVT ppx: warfarin, TEDs 8. Pain: Tylenol 1g TID standing, tramadol will change to standing during the day and qHS at night as patient self-limiting in therapy due to fear of pain 9. Psych: hx of depression, c/u Cymbalta 60mg qHS 10. Skin: c/u barrier cream, daily skin-prep and dressing change to right heel, heel float boot- patient reports he threw out the 1st heel float boot because he doesn't like wearing it, but agreed today to wear it knowing better what the consequences could be -post-op shoe to the right when in therapy 11. : patient reporting today longstanding urinary frequency, will start Flomax for suspected BPH 11. Dispo: TBD Allergies Coded Allergies: No Known Allergies (Unverified , 07/15/16) Vital Signs Vital Signs Date Time Temp Pulse Resp B/P (MAP) Pulse Ox O2 Delivery O2 Flow Rate FiO2 10/29/19 09:23 18 10/29/19 08:56 83 128/68 10/29/19 06:17 97.6 96 Room Air Laboratory Data CBC/BMP Laboratory Tests 10/29/19 06:31 Labs 24H Laboratory Tests 2 10/28/19 20:46: Bedside Glucose (Misc Panel) 142H 10/29/19 06:31: Immature Granulocyte % (Auto) 2.3, Neutrophils (%) (Auto) 76.3H, Lymphocytes (%) (Auto) 11.6L, Monocytes (%) (Auto) 8.2H, Eosinophils (%) (Auto) 1.3, Basophils (%) (Auto) 0.3, Neutrophils # (Auto) 6.7, Lymphocytes # (Auto) 1.0L, Monocytes # (Auto) 0.7, Eosinophils # (Auto) 0.1, Basophils # (Auto) 0.0, Nucleated Red Blood Cells % (auto) 0.0, Prothrombin Time 26.1H, Prothromb Time International Ratio 2.41, Anion Gap 8, Glomerular Filtration Rate > 60.0, Calcium Level 8.4L Current Medications Current Medications Current Medications Medications (Trade) Dose Ordered Sig/Cassandra Route PRN Reason Start Time Stop Time Status Last Admin Dose Admin Acetaminophen (Tylenol Tab) 1,000 mg TID PO 10/23/19 16:00 10/29/19 08:54 Albuterol/ Ipratropium (Duoneb (Ipr 0.5mg/Alb 2.5mg)) 3 ml RTID NEB 10/23/19 14:00 10/29/19 07:42 Amiodarone HCl (Pacerone, Cordarone) 200 mg DAILY PO 10/24/19 09:00 10/29/19 08:54 Atorvastatin Calcium (Lipitor) 40 mg QHS PO 10/23/19 21:00 10/28/19 20:52 Bisacodyl (Dulcolax Suppository) 10 mg DAILYPRN PRN [place] CONSTIPATION 10/23/19 12:15 Carvedilol (COReg) 37.5 mg BID PO 10/23/19 21:00 10/29/19 08:56 Chlorthalidone (Hygroton, Chlorthalidone) 12.5 mg DAILY PO 10/24/19 09:00 10/29/19 08:54 Docusate Sodium (Colace) 100 mg BID PO 10/23/19 21:00 10/29/19 08:54 Duloxetine HCl (Cymbalta) 60 mg QHS PO 10/23/19 21:00 10/28/19 20:51 Pantoprazole Sodium (Protonix) 40 mg DAILY PO 10/24/19 09:00 10/29/19 08:54 Potassium Chloride (Micro-K Extencaps) 20 meq TID PO 10/23/19 16:00 10/29/19 08:54 Senna (Senokot) 1 tab QHS PO 10/23/19 21:00 10/28/19 20:50 Spironolactone (Aldactone) 12.5 mg DAILY PO 10/24/19 09:00 10/29/19 08:54 Tramadol HCl (Ultram) 50 mg Q4HP PRN PO MODERATE PAIN (PS 5-7) 10/23/19 12:15 10/29/19 08:53 Warfarin Sodium (Coumadin) 2.5 mg DAILY@17 PO 10/28/19 17:00 10/28/19 16:16 Warfarin Sodium (Coumadin) 3 mg DAILY@17 PO 10/27/19 17:00 10/28/19 07:14 DC Warfarin Sodium (Coumadin) 4 mg DAILY@1700 PO 10/23/19 17:00 10/26/19 10:58 DC 10/25/19 16:35 JAC LUNA MD Oct 29, 2019 11:54
[2019-10-29] MEDS: traMADol 50 MG TAB PO SCH ×2 (12:13→16:19)
[2019-10-29] MEDS ORDERED: PILL CUTTER 1 EACH XX PRN (12:15)
[2019-10-29 14:00] VITALS: BP 120/68
[2019-10-29] MEDS: WARFARIN SOD 2.5 MG TAB PO SCH (16:19)
[2019-10-29 20:00] VITALS: BP 135/76
[2019-10-29] MEDS ORDERED: traMADol 50 MG TAB PO PRN (21:00)
[2019-10-29] MEDS: DULoxetine 30 MG CAP (CYMBALTA) PO SCH (21:36)
[2019-10-29] MEDS: ATORVASTATIN 20 MG TAB PO SCH (21:36)
[2019-10-29] MEDS: SENNA 8.6 MG TAB (SENOKOT) PO SCH (21:36)
[2019-10-29] MEDS: TAMSULOSIN 0.4 MG CAP PO SCH (21:36)
[2019-10-30 06:00] VITALS: BP 118/67
[2019-10-30 06:46] LABS: INR 2.41; PROTHROMBIN TIME 26.1 SECONDS (11.8-14.0)
[2019-10-30] MEDS: IPRATROPIUM 0.5MG/ALBUTEROL 2.5MG INH SOL UD 3ML (DUONEB)(J7620) NEB SCH ×3 (07:33→20:03)
[2019-10-30] MEDS: traMADol 50 MG TAB PO SCH ×3 (07:44→16:55)
[2019-10-30] MEDS: AMIODARONE 200 MG TAB (PACERONE) PO SCH (07:45)
[2019-10-30] MEDS: CHLORTHALIDONE 12.5MG PER 1/2 TABLET PO SCH (07:45)
[2019-10-30] MEDS: ACETAMINOPHEN 500 MG TAB PO SCH ×3 (07:45→21:14)
[2019-10-30] MEDS: PANTOPRAZOLE 40MG TAB (PROTONIX) PO SCH (07:45)
[2019-10-30] MEDS: CARVedilol 12.5 MG TAB PO SCH ×2 (07:46→21:16)
[2019-10-30] MEDS: SPIRONOLACTONE 12.5MG PER 1/2 TABLET PO SCH (07:46)
[2019-10-30] MEDS: POTASSIUM CHLORIDE 10 MEQ SR TABLET PO SCH ×3 (07:46→21:15)
[2019-10-30] MEDS: DOCUSATE SODIUM 100 MG CAP PO SCH ×2 (07:47→21:16)
[2019-10-30] MEDS: REMEDY PHYTOPLEX Z-GUARD PASTE 113GM TUBE (FROM STOREROOM PRODUCT) TOP SCH ×3 (07:50→21:16)
[2019-10-30 14:00] VITALS: BP 130/68
[2019-10-30] MEDS: WARFARIN SOD 2.5 MG TAB PO SCH (16:54)
[2019-10-30 20:00] VITALS: BP 117/69
[2019-10-30] MEDS: ATORVASTATIN 20 MG TAB PO SCH (21:14)
[2019-10-30] MEDS: DULoxetine 30 MG CAP (CYMBALTA) PO SCH (21:14)
[2019-10-30] MEDS: TAMSULOSIN 0.4 MG CAP PO SCH (21:15)
[2019-10-30] MEDS: SENNA 8.6 MG TAB (SENOKOT) PO SCH (21:16)
[2019-10-31 06:00] VITALS: BP 118/65
[2019-10-31 06:03] LABS: BASO % 0.5 % (0.0-1.0); EOS # 0.1 10^3/uL (0.0-0.5); EOS % 1.8 % (0.0-3.0); HEMATOCRIT 32.8 % (42.0-52.0); HEMOGLOBIN 10.2 g/dl (13.5-17.5); LYMPH # 0.9 10^3/uL (1.5-5.0); LYMPH % 15.2 % (24.0-44.0); MEAN CORPUSCULAR HEMOGLOBIN 27.1 pg (27.0-33.0); MEAN CORPUSCULAR HGB CONC 31.1 g/dl (32.0-36.5); MEAN CORPUSCULAR VOLUME 87.2 fl (80.0-96.0); MONO # 0.6 10^3/uL (0.0-0.8); MONO % 9.2 % (0.0-5.0); NEUTROPHILS # 4.4 10^3/uL (1.5-8.5); NEUTROPHILS % 71.8 % (36.0-66.0); PLATELET COUNT, AUTOMATED 356 10^3/uL (150-450); RED BLOOD COUNT 3.76 10^6/uL (4.30-6.10); WHITE BLOOD COUNT 6.1 10^3/uL (4.0-10.0)
[2019-10-31 06:10] LABS: INR 2.44; PROTHROMBIN TIME 26.3 SECONDS (11.8-14.0)
[2019-10-31 06:29] LABS: BLOOD UREA NITROGEN 27 MG/DL (7-18); CALCIUM LEVEL 8.3 MG/DL (8.8-10.2); CARBON DIOXIDE LEVEL 27 MEQ/L (21-32); CHLORIDE LEVEL 107 MEQ/L (98-107); CREATININE FOR GFR 1.05 MG/DL (0.70-1.30); GLOMERULAR FILTRATION RATE > 60.0 (>42); GLUCOSE, FASTING 101 MG/DL (70-100); SODIUM LEVEL 138 MEQ/L (136-145)
[2019-10-31] MEDS: IPRATROPIUM 0.5MG/ALBUTEROL 2.5MG INH SOL UD 3ML (DUONEB)(J7620) NEB SCH ×3 (07:21→19:05)
[2019-10-31] MEDS: ACETAMINOPHEN 500 MG TAB PO SCH ×3 (08:36→21:44)
[2019-10-31] MEDS: CHLORTHALIDONE 12.5MG PER 1/2 TABLET PO SCH (08:36)
[2019-10-31] MEDS: POTASSIUM CHLORIDE 10 MEQ SR TABLET PO SCH ×3 (08:36→21:45)
[2019-10-31] MEDS: AMIODARONE 200 MG TAB (PACERONE) PO SCH (08:36)
[2019-10-31] MEDS: DOCUSATE SODIUM 100 MG CAP PO SCH ×2 (08:37→21:44)
[2019-10-31] MEDS: PANTOPRAZOLE 40MG TAB (PROTONIX) PO SCH (08:37)
[2019-10-31] MEDS: traMADol 50 MG TAB PO SCH ×3 (08:37→17:06)
[2019-10-31] MEDS: SPIRONOLACTONE 12.5MG PER 1/2 TABLET PO SCH (08:37)
[2019-10-31] MEDS: CARVedilol 12.5 MG TAB PO SCH ×2 (08:37→21:45)
[2019-10-31] MEDS: REMEDY PHYTOPLEX Z-GUARD PASTE 113GM TUBE (FROM STOREROOM PRODUCT) TOP SCH ×5 (08:38→21:48)
[2019-10-31 14:00] VITALS: BP 121/65
[2019-10-31] MEDS: WARFARIN SOD 2.5 MG TAB PO SCH (17:05)
[2019-10-31] MEDS: ATORVASTATIN 20 MG TAB PO SCH (21:44)
[2019-10-31] MEDS: SENNA 8.6 MG TAB (SENOKOT) PO SCH (21:44)
[2019-10-31] MEDS: TAMSULOSIN 0.4 MG CAP PO SCH (21:44)
[2019-10-31] MEDS: DULoxetine 30 MG CAP (CYMBALTA) PO SCH (21:45)
[2019-10-31 22:00] VITALS: BP 131/81
[2019-11-01 06:00] VITALS: BP 128/71
[2019-11-01 06:45] LABS: INR 2.25; PROTHROMBIN TIME 24.7 SECONDS (11.8-14.0)
[2019-11-01] MEDS: IPRATROPIUM 0.5MG/ALBUTEROL 2.5MG INH SOL UD 3ML (DUONEB)(J7620) NEB SCH ×3 (07:51→19:42)
[2019-11-01] MEDS: AMIODARONE 200 MG TAB (PACERONE) PO SCH (08:44)
[2019-11-01] MEDS: CHLORTHALIDONE 12.5MG PER 1/2 TABLET PO SCH (08:44)
[2019-11-01] MEDS: PANTOPRAZOLE 40MG TAB (PROTONIX) PO SCH (08:45)
[2019-11-01] MEDS: ACETAMINOPHEN 500 MG TAB PO SCH ×3 (08:45→20:35)
[2019-11-01] MEDS: CARVedilol 12.5 MG TAB PO SCH ×2 (08:45→20:34)
[2019-11-01] MEDS: POTASSIUM CHLORIDE 10 MEQ SR TABLET PO SCH ×3 (08:46→20:35)
[2019-11-01] MEDS: DOCUSATE SODIUM 100 MG CAP PO SCH ×2 (08:46→20:35)
[2019-11-01] MEDS: traMADol 50 MG TAB PO SCH ×3 (08:46→17:15)
[2019-11-01] MEDS: REMEDY PHYTOPLEX Z-GUARD PASTE 113GM TUBE (FROM STOREROOM PRODUCT) TOP SCH ×3 (08:46→20:36)
[2019-11-01] MEDS: SPIRONOLACTONE 12.5MG PER 1/2 TABLET PO SCH (08:46)
--- NOTE | 2019-11-01 10:06 | IPNPDOC ---
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 he says he is not in too much pain, but is afraid he might have pain. He reports his urination is slightly better today. REVIEW OF SYSTEMS: The following is a completed review of systems and has been reviewed. Review of systems otherwise unremarkable. PAIN: Patient self reports right hip pain EYES: No recent vision changes EARS, NOSE, & THROAT: No throat pain, or dysphagia, or rhinorrhea CARDIOVASCULAR: Denies chest pain or palpitations PULMONARY: Denies shortness of breath, +dry cough GASTROINTESTINAL: Denies constipation/diarrhea GENITOURINARY: denies dysuria, +urinary frequency (chronic) MUSCULOSKELETAL: right hip fracture NEUROLOGICAL:mild right sided paresis HEMATOLOGICAL: denies easy bruising SKIN: +surgical incision PSYCHIATRIC: Unremarkable All other review of systems found to be negative. PHYSICAL EXAMINATION: VITAL SIGNS: Please see below. GENERAL: Pleasant and cooperative. No acute distress. HEENT: PERRL. Extraocular movements intact. Clear conjunctiva CARDIOVASCULAR: Regular rate and rhythm. No murmurs, rubs, or gallops LUNGS: Clear to auscultation bilaterally. No wheezes. No rhonchi ABDOMEN: Soft, nontender, nondistended. Positive bowel sounds. Normal active bowel sounds]. NEUROLOGICAL: Alert and oriented times three. Cranial nerves II through XII grossly intact. Sensation grossly intact all 4limbs including 1 web space right foot EXTREMITIES:5\5 strength bilat upper extremity, 4\5 strength right ankle DF/EHL and PF (limited due to recent surgery) 5/5 strength in left lower extremity SKIN:sacrum with blanchable erythema, right hip incision with mild edema/erythema, no induration -right heel with blister (unstageable and present on admission) ASSESSMENT:74-year-old M with past medical history of CVA with right sided weakness who presents status post hip fracture PLAN: 1. Rehab- PT/OT advance gait and ADL training maintain total hip precautions for RLE, strengthen/stretch/maintain ROM all 4 limbs, dynamic balance training 2. Neuro: patient reporting his right arm feels a little weaker since surgery, physical exam with very subtle change in MMT still a 5/5-repeat MRI negative for new infarct-stable 3. Ortho: s/p right hip fracture with shauna-arthroplasty, f/u ortho- consulted -maintain WBAT with hip precautions 4. Cardiac: hx of mechanical valve replacement with Afib, c/u warfarin, monitor and manage daily INR, c/u Carvedilol and Amiodarone -f/u PMD and cardiology (Dr. Alfaro) for known thoracic aortic aneurysm -hx of diastolic CHF c/u diuretics, fluid restrictions, daily weight -patient recently started on potassium supplements, will c/u and manage -HLD c/u statin -medicine consulted to assist in overall management 5. Resp: encourage incentive spirometry, monitor for infection 6. GI ppx: Protonix 7. DVT ppx: warfarin, TEDs 8. Pain: Tylenol 1g TID standing, c/u tramadol to standing and qHS at night as patient self-limiting in therapy due to fear of pain 9. Psych: hx of depression, c/u Cymbalta 60mg qHS 10. Skin: c/u barrier cream, daily skin-prep and dressing change to right heel, heel float boot- patient reports he threw out the 1st heel float boot because he doesn't like wearing it, but agreed today to wear it knowing better what the consequences could be -post-op shoe to the right when in therapy 11. : patient reporting improvement in urination since starting Flomax, will c/u 11. Dispo: 11-08-19 to home, progressing towards goals Allergies Coded Allergies: No Known Allergies (Unverified , 07/15/16) Vital Signs Vital Signs Date Time Temp Pulse Resp B/P (MAP) Pulse Ox O2 Delivery O2 Flow Rate FiO2 11/01/19 08:46 16 11/01/19 08:45 72 128/71 11/01/19 06:00 98.3 95 Room Air Laboratory Data Labs 24H Laboratory Tests 2 11/01/19 06:06: Prothrombin Time 24.7H, Prothromb Time International Ratio 2.25 Current Medications Current Medications Current Medications Medications (Trade) Dose Ordered Sig/Cassandra Route PRN Reason Start Time Stop Time Status Last Admin Dose Admin Acetaminophen (Tylenol Tab) 1,000 mg TID PO 10/23/19 16:00 11/01/19 08:45 Albuterol/ Ipratropium (Duoneb (Ipr 0.5mg/Alb 2.5mg)) 3 ml RTID NEB 10/23/19 14:00 11/01/19 07:51 Amiodarone HCl (Pacerone, Cordarone) 200 mg DAILY PO 10/24/19 09:00 11/01/19 08:44 Atorvastatin Calcium (Lipitor) 40 mg QHS PO 10/23/19 21:00 10/31/19 21:44 Bisacodyl (Dulcolax Suppository) 10 mg DAILYPRN PRN [place] CONSTIPATION 10/23/19 12:15 Carvedilol (COReg) 37.5 mg BID PO 10/23/19 21:00 11/01/19 08:45 Chlorthalidone (Hygroton, Chlorthalidone) 12.5 mg DAILY PO 10/24/19 09:00 11/01/19 08:44 Docusate Sodium (Colace) 100 mg BID PO 10/23/19 21:00 11/01/19 08:46 Duloxetine HCl (Cymbalta) 60 mg QHS PO 10/23/19 21:00 10/31/19 21:45 Pantoprazole Sodium (Protonix) 40 mg DAILY PO 10/24/19 09:00 11/01/19 08:45 Potassium Chloride (Micro-K Extencaps) 20 meq TID PO 10/23/19 16:00 11/01/19 08:46 Senna (Senokot) 1 tab QHS PO 10/23/19 21:00 10/31/19 21:44 Spironolactone (Aldactone) 12.5 mg DAILY PO 10/24/19 09:00 11/01/19 08:46 Tamsulosin HCl (Flomax) 0.4 mg QHS PO 10/29/19 21:00 10/31/19 21:44 Tramadol HCl (Ultram) 25 mg QHS PRN PO MODERATE PAIN (PS 5-7) 10/29/19 21:00 Tramadol HCl (Ultram) 25 mg TID@0800,1200,1600 PO 10/29/19 12:00 11/01/19 08:46 Tramadol HCl (Ultram) 50 mg Q4HP PRN PO MODERATE PAIN (PS 5-7) 10/23/19 12:15 10/29/19 11:57 DC 10/29/19 08:53 Warfarin Sodium (Coumadin) 2.5 mg DAILY@17 PO 10/28/19 17:00 10/31/19 17:05 Warfarin Sodium (Coumadin) 3 mg DAILY@17 PO 10/27/19 17:00 10/28/19 07:14 DC Warfarin Sodium (Coumadin) 4 mg DAILY@1700 PO 10/23/19 17:00 10/26/19 10:58 DC 10/25/19 16:35 JAC LUNA MD Nov 01, 2019 10:06
[2019-11-01 14:00] VITALS: BP 134/75
--- NOTE | 2019-11-01 15:02 | IPNPDOC ---
PM&R Progress Note DATE OF SERVICE: Nov 01, 2019 Physical Trainer Progress Note Subjective: Patient seen in his room for dressing change, he states somehow the original heel float boot was back in his room and he couldn't explain how this happened. He was encouraged to work on gluteal strengthening exercises to help with standing tolerance and better pelvic control with walking. REVIEW OF SYSTEMS: The following is a completed review of systems and has been reviewed. Review of systems otherwise unremarkable. PAIN: Patient self reports right hip pain EYES: No recent vision changes EARS, NOSE, & THROAT: No throat pain, or dysphagia, or rhinorrhea CARDIOVASCULAR: Denies chest pain or palpitations PULMONARY: Denies shortness of breath, +dry cough GASTROINTESTINAL: Denies constipation/diarrhea GENITOURINARY: denies dysuria, +urinary frequency (chronic) MUSCULOSKELETAL: right hip fracture NEUROLOGICAL:mild right sided paresis HEMATOLOGICAL: denies easy bruising SKIN: +surgical incision PSYCHIATRIC: Unremarkable All other review of systems found to be negative. PHYSICAL EXAMINATION: VITAL SIGNS: Please see below. GENERAL: Pleasant and cooperative. No acute distress. HEENT: PERRL. Extraocular movements intact. Clear conjunctiva CARDIOVASCULAR: Regular rate and rhythm. No murmurs, rubs, or gallops LUNGS: Clear to auscultation bilaterally. No wheezes. No rhonchi ABDOMEN: Soft, nontender, nondistended. Positive bowel sounds. Normal active bowel sounds]. NEUROLOGICAL: Alert and oriented times three. Cranial nerves II through XII grossly intact. Sensation grossly intact all 4limbs including 1 web space right foot EXTREMITIES:5\5 strength bilat upper extremity, 4\5 strength right ankle DF/EHL and PF (limited due to recent surgery) 5/5 strength in left lower extremity SKIN:sacrum with blanchable erythema, right hip incision with mild edema/er ythema, no induration -right heel with blister (unstageable and present on admission) ASSESSMENT:74-year-old M with past medical history of CVA with right sided weakness who presents status post hip fracture PLAN: 1. Rehab- PT/OT advance gait and ADL training maintain total hip precautions for RLE, strengthen/stretch/maintain ROM all 4 limbs, dynamic balance training 2. Neuro: patient reporting his right arm feels a little weaker since surgery, physical exam with very subtle change in MMT still a 5/5-repeat MRI negative for new infarct-stable 3. Ortho: s/p right hip fracture with shauna-arthroplasty, f/u ortho- consulted -maintain WBAT with hip precautions 4. Cardiac: hx of mechanical valve replacement with Afib, c/u warfarin, monitor and manage daily INR, c/u Carvedilol and Amiodarone -f/u PMD and cardiology (Dr. Alfaro) for known thoracic aortic aneurysm -hx of diastolic CHF c/u diuretics, fluid restrictions, daily weight -patient recently started on potassium supplements, will c/u and manage -HLD c/u statin -medicine consulted to assist in overall management 5. Resp: encourage incentive spirometry, monitor for infection 6. GI ppx: Protonix 7. DVT ppx: warfarin, TEDs 8. Pain: Tylenol 1g TID standing, c/u tramadol to standing and qHS at night as patient self-limiting in therapy due to fear of pain 9. Psych: hx of depression, c/u Cymbalta 60mg qHS 10. Skin: c/u barrier cream, daily skin-prep and dressing change to right heel, heel float boot- patient reports he threw out the 1st heel float boot because he doesn't like wearing it, but agreed today to wear it knowing better what the consequences could be -post-op shoe to the right when in therapy 11. : c/u Flomax for suspected BPH 11. Dispo: 11-08-19 to home, progressing towards goals Allergies Coded Allergies: No Known Allergies (Unverified , 07/15/16) Vital Signs Vital Signs Date Time Temp Pulse Resp B/P (MAP) Pulse Ox O2 Delivery O2 Flow Rate FiO2 11/01/19 14:00 97.9 64 18 134/75 (94) 94 Room Air Laboratory Data Labs 24H Laboratory Tests 2 11/01/19 06:06: Prothrombin Time 24.7H, Prothromb Time International Ratio 2.25 Current Medications Current Medications Current Medications Medications (Trade) Dose Ordered Sig/Cassandra Route PRN Reason Start Time Stop Time Status Last Admin Dose Admin Acetaminophen (Tylenol Tab) 1,000 mg TID PO 10/23/19 16:00 11/01/19 08:45 Albuterol/ Ipratropium (Duoneb (Ipr 0.5mg/Alb 2.5mg)) 3 ml RTID NEB 10/23/19 14:00 11/01/19 14:49 Amiodarone HCl (Pacerone, Cordarone) 200 mg DAILY PO 10/24/19 09:00 11/01/19 08:44 Atorvastatin Calcium (Lipitor) 40 mg QHS PO 10/23/19 21:00 10/31/19 21:44 Bisacodyl (Dulcolax Suppository) 10 mg DAILYPRN PRN [place] CONSTIPATION 10/23/19 12:15 Carvedilol (COReg) 37.5 mg BID PO 10/23/19 21:00 11/01/19 08:45 Chlorthalidone (Hygroton, Chlorthalidone) 12.5 mg DAILY PO 10/24/19 09:00 11/01/19 08:44 Docusate Sodium (Colace) 100 mg BID PO 10/23/19 21:00 11/01/19 08:46 Duloxetine HCl (Cymbalta) 60 mg QHS PO 10/23/19 21:00 10/31/19 21:45 Pantoprazole Sodium (Protonix) 40 mg DAILY PO 10/24/19 09:00 11/01/19 08:45 Potassium Chloride (Micro-K Extencaps) 20 meq TID PO 10/23/19 16:00 11/01/19 08:46 Senna (Senokot) 1 tab QHS PO 10/23/19 21:00 10/31/19 21:44 Spironolactone (Aldactone) 12.5 mg DAILY PO 10/24/19 09:00 11/01/19 08:46 Tamsulosin HCl (Flomax) 0.4 mg QHS PO 10/29/19 21:00 10/31/19 21:44 Tramadol HCl (Ultram) 25 mg QHS PRN PO MODERATE PAIN (PS 5-7) 10/29/19 21:00 Tramadol HCl (Ultram) 25 mg TID@0800,1200,1600 PO 10/29/19 12:00 11/01/19 12:30 Tramadol HCl (Ultram) 50 mg Q4HP PRN PO MODERATE PAIN (PS 5-7) 10/23/19 12:15 10/29/19 11:57 DC 10/29/19 08:53 Warfarin Sodium (Coumadin) 2.5 mg DAILY@17 PO 10/28/19 17:00 10/31/19 17:05 Warfarin Sodium (Coumadin) 3 mg DAILY@17 PO 10/27/19 17:00 10/28/19 07:14 DC Warfarin Sodium (Coumadin) 4 mg DAILY@1700 PO 10/23/19 17:00 10/26/19 10:58 DC 10/25/19 16:35 JAC LUNA MD Nov 01, 2019 15:01
[2019-11-01] MEDS: WARFARIN SOD 2.5 MG TAB PO SCH (17:13)
[2019-11-01 20:28] VITALS: BP 124/68
[2019-11-01] MEDS: ATORVASTATIN 20 MG TAB PO SCH (20:35)
[2019-11-01] MEDS: TAMSULOSIN 0.4 MG CAP PO SCH (20:35)
[2019-11-01] MEDS: SENNA 8.6 MG TAB (SENOKOT) PO SCH (20:36)
[2019-11-01] MEDS: DULoxetine 30 MG CAP (CYMBALTA) PO SCH (20:36)
--- NOTE | 2019-11-01 21:26 | IPNPDOC ---
Date Seen The patient was seen on 11/01/19. Progress Note SUBJECTIVE: No acute complaints. Tolerating PT/OT well. Denies chest pain, n/v/d, shortness of breath. OBJECTIVE: VITAL SIGNS: Please see below PHYSICAL EXAMINATION: GENERAL APPEARANCE: Resting comfortably, no acute distess HEENT: PERRLA. Extraocular muscles intact. RESPIRATORY: Clear to A&P. CARDIOVASCULAR: S1, S2, regular. ABDOMEN: , Soft, nontender, bowel sounds present. EXTREMITIES: right hip arthroplasty with dressing, no ROM testing done. No erythema, swelling or drainage from incision area. NEUROLOGICAL: Baseline right hemiparesis. No new focal motor or sensory deficit. PSYCHIATRIC: Normal. LABORATORY DATA: Please see below. ASSESSMENT: 74-year-old male admitted under inpatient status for treatment of acute right displaced femoral neck fracture s/p right hip arthroplasty. PLAN: 1. Right displaced femoral neck fracture s/p right hip arthroplasty. Pain controlled, c/w PT/OT. Ortho was follow patient by primary. 2. Nonrheumatic aortic valve disorder/history of severe aortic stenosis/status post aortic valve placement (mechanical). INR within goal. C/w coumadin. Follow INR regularly. 3. CAD: Under well control. Stable. Continue all home meds. 4. Hypertension. Stable. C/w current meds. 5. Hyperlipidemia. Continue home meds. 6. Thoracic Aortic aneurysm, stable. Further follow-up as an outpatient with the cardiology/product delivery specialist. 7. CVA with right-sided hemiparesis. Baseline right-sided hemiparesis. No new focal motor or sensory deficit, c/w PT/OT. 8. GERD. PPI 9. Depression: Stable. Continue duloxetine 10. DVT px. Coumadin. VS, I&O, 24H, Fishbone Vital Signs/I&O Vital Signs Date Time Temp Pulse Resp B/P (MAP) Pulse Ox O2 Delivery O2 Flow Rate FiO2 11/01/19 20:34 69 124/68 11/01/19 20:28 98.1 18 97 Room Air I&O- Last 24 Hours up to 6 AM 11/01/19 06:00 Intake Total 1150 ml Output Total 1825 ml Balance -675 ml Laboratory Data 24H LABS Laboratory Tests 2 11/01/19 06:06: Prothrombin Time 24.7H, Prothromb Time International Ratio 2.25 Current Medications Current Medications Medications (Trade) Dose Ordered Sig/Cassandra Route PRN Reason Start Time Stop Time Status Last Admin Dose Admin Acetaminophen (Tylenol Tab) 1,000 mg TID PO 10/23/19 16:00 11/01/19 20:35 Albuterol/ Ipratropium (Duoneb (Ipr 0.5mg/Alb 2.5mg)) 3 ml RTID NEB 10/23/19 14:00 11/01/19 19:42 Amiodarone HCl (Pacerone, Cordarone) 200 mg DAILY PO 10/24/19 09:00 11/01/19 08:44 Atorvastatin Calcium (Lipitor) 40 mg QHS PO 10/23/19 21:00 11/01/19 20:35 Bisacodyl (Dulcolax Suppository) 10 mg DAILYPRN PRN [place] CONSTIPATION 10/23/19 12:15 Carvedilol (COReg) 37.5 mg BID PO 10/23/19 21:00 11/01/19 20:34 Chlorthalidone (Hygroton, Chlorthalidone) 12.5 mg DAILY PO 10/24/19 09:00 11/01/19 08:44 Docusate Sodium (Colace) 100 mg BID PO 10/23/19 21:00 11/01/19 20:35 Duloxetine HCl (Cymbalta) 60 mg QHS PO 10/23/19 21:00 11/01/19 20:36 Pantoprazole Sodium (Protonix) 40 mg DAILY PO 10/24/19 09:00 11/01/19 08:45 Potassium Chloride (Micro-K Extencaps) 20 meq TID PO 10/23/19 16:00 11/01/19 20:35 Senna (Senokot) 1 tab QHS PO 10/23/19 21:00 11/01/19 20:36 Spironolactone (Aldactone) 12.5 mg DAILY PO 10/24/19 09:00 11/01/19 08:46 Tamsulosin HCl (Flomax) 0.4 mg QHS PO 10/29/19 21:00 11/01/19 20:35 Tramadol HCl (Ultram) 25 mg QHS PRN PO MODERATE PAIN (PS 5-7) 10/29/19 21:00 Tramadol HCl (Ultram) 25 mg TID@0800,1200,1600 PO 10/29/19 12:00 11/01/19 17:15 Tramadol HCl (Ultram) 50 mg Q4HP PRN PO MODERATE PAIN (PS 5-7) 10/23/19 12:15 10/29/19 11:57 DC 10/29/19 08:53 Warfarin Sodium (Coumadin) 2.5 mg DAILY@17 PO 10/28/19 17:00 11/01/19 17:13 Warfarin Sodium (Coumadin) 3 mg DAILY@17 PO 10/27/19 17:00 10/28/19 07:14 DC Warfarin Sodium (Coumadin) 4 mg DAILY@1700 PO 10/23/19 17:00 10/26/19 10:58 DC 10/25/19 16:35 Allergies Coded Allergies: No Known Allergies (Unverified , 07/15/16) Graciela Pryor MD Nov 01, 2019 21:26
[2019-11-02 06:11] VITALS: BP 145/81
[2019-11-02 07:27] LABS: BASO % 0.3 % (0.0-1.0); EOS # 0.1 10^3/uL (0.0-0.5); EOS % 1.6 % (0.0-3.0); HEMATOCRIT 35.9 % (42.0-52.0); HEMOGLOBIN 11.4 g/dl (13.5-17.5); LYMPH # 0.9 10^3/uL (1.5-5.0); LYMPH % 13.2 % (24.0-44.0); MEAN CORPUSCULAR HEMOGLOBIN 27.9 pg (27.0-33.0); MEAN CORPUSCULAR HGB CONC 31.8 g/dl (32.0-36.5); MEAN CORPUSCULAR VOLUME 87.8 fl (80.0-96.0); MONO # 0.5 10^3/uL (0.0-0.8); MONO % 6.8 % (0.0-5.0); NEUTROPHILS # 5.5 10^3/uL (1.5-8.5); NEUTROPHILS % 77.3 % (36.0-66.0); PLATELET COUNT, AUTOMATED 362 10^3/uL (150-450); RED BLOOD COUNT 4.09 10^6/uL (4.30-6.10); WHITE BLOOD COUNT 7.1 10^3/uL (4.0-10.0)
[2019-11-02] MEDS: IPRATROPIUM 0.5MG/ALBUTEROL 2.5MG INH SOL UD 3ML (DUONEB)(J7620) NEB SCH (07:37)
[2019-11-02 07:38] LABS: INR 1.99; PROTHROMBIN TIME 22.4 SECONDS (11.8-14.0)
[2019-11-02 07:51] LABS: BLOOD UREA NITROGEN 22 MG/DL (7-18); CARBON DIOXIDE LEVEL 29 MEQ/L (21-32); CHLORIDE LEVEL 102 MEQ/L (98-107); CREATININE FOR GFR 1.18 MG/DL (0.70-1.30); GLOMERULAR FILTRATION RATE > 60.0 (>42); GLUCOSE, FASTING 103 MG/DL (70-100); POTASSIUM SERUM 3.8 MEQ/L (3.5-5.1); SODIUM LEVEL 135 MEQ/L (136-145)
[2019-11-02] MEDS: POTASSIUM CHLORIDE 10 MEQ SR TABLET PO SCH ×3 (08:59→20:12)
[2019-11-02] MEDS: DOCUSATE SODIUM 100 MG CAP PO SCH ×2 (08:59→20:11)
[2019-11-02] MEDS: PANTOPRAZOLE 40MG TAB (PROTONIX) PO SCH (09:00)
[2019-11-02] MEDS: REMEDY PHYTOPLEX Z-GUARD PASTE 113GM TUBE (FROM STOREROOM PRODUCT) TOP SCH ×3 (09:00→20:12)
[2019-11-02] MEDS: CHLORTHALIDONE 12.5MG PER 1/2 TABLET PO SCH (09:00)
[2019-11-02] MEDS: AMIODARONE 200 MG TAB (PACERONE) PO SCH (09:01)
[2019-11-02] MEDS: ACETAMINOPHEN 500 MG TAB PO SCH ×3 (09:01→20:12)
[2019-11-02] MEDS: CARVedilol 12.5 MG TAB PO SCH ×2 (09:02→20:11)
[2019-11-02] MEDS: traMADol 50 MG TAB PO SCH ×3 (09:05→16:34)
[2019-11-02] MEDS: SPIRONOLACTONE 12.5MG PER 1/2 TABLET PO SCH (09:05)
[2019-11-02 14:00] VITALS: BP 112/66
[2019-11-02] MEDS ORDERED: IPRATROPIUM 0.5MG/ALBUTEROL 2.5MG INH SOL UD 3ML (DUONEB)(J7620) NEB PRN (14:00)
--- NOTE | 2019-11-02 14:05 | IPNPDOC ---
PM&R Progress Note DATE OF SERVICE: Nov 02, 2019 [facility] Programmer Progress Note Subjective: Patient seen in his room eating lunch stating he is having pain in therapy. but does not want to go up on his pain medications. REVIEW OF SYSTEMS: The following is a completed review of systems and has been reviewed. Review of systems otherwise unremarkable. PAIN: Patient self reports right hip pain EYES: No recent vision changes EARS, NOSE, & THROAT: No throat pain, or dysphagia, or rhinorrhea CARDIOVASCULAR: Denies chest pain or palpitations PULMONARY: Denies shortness of breath, +dry cough GASTROINTESTINAL: Denies constipation/diarrhea GENITOURINARY: denies dysuria, +urinary frequency (chronic) MUSCULOSKELETAL: right hip fracture NEUROLOGICAL:mild right sided paresis HEMATOLOGICAL: denies easy bruising SKIN: +surgical incision PSYCHIATRIC: Unremarkable All other review of systems found to be negative. PHYSICAL EXAMINATION: VITAL SIGNS: Please see below. GENERAL: Pleasant and cooperative. No acute distress. HEENT: PERRL. Extraocular movements intact. Clear conjunctiva CARDIOVASCULAR: Regular rate and rhythm. No murmurs, rubs, or gallops LUNGS: Clear to auscultation bilaterally. No wheezes. No rhonchi ABDOMEN: Soft, nontender, nondistended. Positive bowel sounds. Normal active bowel sounds]. NEUROLOGICAL: Alert and oriented times three. Cranial nerves II through XII grossly intact. Sensation grossly intact all 4limbs including 1 web space right foot EXTREMITIES:5\5 strength bilat upper extremity, 4\5 strength right ankle DF/EHL and PF (limited due to recent surgery) 5/5 strength in left lower extremity SKIN:sacrum with blanchable erythema, right hip incision with mild edema/erythema, no induration -right heel with blister (unstageable and present on admission) ASSESSMENT:74-year-old M with past medical history of CVA with right sided weakness who presents status post hip fracture PLAN: 1. Rehab- PT/OT advance gait and ADL training maintain total hip precautions for RLE, strengthen/stretch/maintain ROM all 4 limbs, dynamic balance training 2. Neuro: patient reporting his right arm feels a little weaker since surgery, physical exam with very subtle change in MMT still a 5/5-repeat MRI negative for new infarct-stable 3. Ortho: s/p right hip fracture with shauna-arthroplasty, f/u ortho- consulted -maintain WBAT with hip precautions 4. Cardiac: hx of mechanical valve replacement with Afib, c/u warfarin, monitor and manage daily INR, c/u Carvedilol and Amiodarone -f/u PMD and cardiology (Dr. Alfaro) for known thoracic aortic aneurysm -hx of diastolic CHF c/u diuretics, fluid restrictions, daily weight -patient recently started on potassium supplements, will c/u and manage -HLD c/u statin -medicine consulted to assist in overall management 5. Resp: encourage incentive spirometry, monitor for infection 6. GI ppx: Protonix 7. DVT ppx: warfarin, TEDs 8. Pain: Tylenol 1g TID standing, c/u tramadol to standing and qHS at night as patient self-limiting in therapy due to fear of pain 9. Psych: hx of depression, c/u Cymbalta 60mg qHS 10. Skin: c/u barrier cream, daily skin-prep and dressing change to right heel, heel float boot- -post-op shoe to the right when in therapy 11. : c/u Flomax for suspected BPH 11. Dispo: 11-08-19 to home, progressing towards goals Allergies Coded Allergies: No Known Allergies (Unverified , 07/15/16) Vital Signs Vital Signs Date Time Temp Pulse Resp B/P (MAP) Pulse Ox O2 Delivery O2 Flow Rate FiO2 11/02/19 11:53 20 11/02/19 09:02 75 145/81 11/02/19 06:11 97.4 94 Room Air Laboratory Data CBC/BMP Laboratory Tests 11/02/19 06:58 Labs 24H Laboratory Tests 2 11/02/19 06:58: Immature Granulocyte % (Auto) 0.8, Neutrophils (%) (Auto) 77.3H, Lymphocytes (%) (Auto) 13.2L, Monocytes (%) (Auto) 6.8H, Eosinophils (%) (Auto) 1.6, Basophils (%) (Auto) 0.3, Neutrophils # (Auto) 5.5, Lymphocytes # (Auto) 0.9L, Monocytes # (Auto) 0.5, Eosinophils # (Auto) 0.1, Basophils # (Auto) 0.0, Nucleated Red Blo od Cells % (auto) 0.0, Prothrombin Time 22.4H, Prothromb Time International Ratio 1.99, Anion Gap 4L, Glomerular Filtration Rate > 60.0, Calcium Level 9.0 Current Medications Current Medications Current Medications Medications (Trade) Dose Ordered Sig/Cassandra Route PRN Reason Start Time Stop Time Status Last Admin Dose Admin Acetaminophen (Tylenol Tab) 1,000 mg TID PO 10/23/19 16:00 11/02/19 09:01 Albuterol/ Ipratropium (Duoneb (Ipr 0.5mg/Alb 2.5mg)) 3 ml RTID NEB 10/23/19 14:00 11/02/19 10:12 DC 11/02/19 07:37 Albuterol/ Ipratropium (Duoneb (Ipr 0.5mg/Alb 2.5mg)) 3 ml TIDP PRN NEB cough/wheeze 11/02/19 14:00 Amiodarone HCl (Pacerone, Cordarone) 200 mg DAILY PO 10/24/19 09:00 11/02/19 09:01 Atorvastatin Calcium (Lipitor) 40 mg QHS PO 10/23/19 21:00 11/01/19 20:35 Bisacodyl (Dulcolax Suppository) 10 mg DAILYPRN PRN [place] CONSTIPATION 10/23/19 12:15 Carvedilol (COReg) 37.5 mg BID PO 10/23/19 21:00 11/02/19 09:02 Chlorthalidone (Hygroton, Chlorthalidone) 12.5 mg DAILY PO 10/24/19 09:00 11/02/19 09:00 Docusate Sodium (Colace) 100 mg BID PO 10/23/19 21:00 11/02/19 08:59 Duloxetine HCl (Cymbalta) 60 mg QHS PO 10/23/19 21:00 11/01/19 20:36 Pantoprazole Sodium (Protonix) 40 mg DAILY PO 10/24/19 09:00 11/02/19 09:00 Potassium Chloride (Micro-K Extencaps) 20 meq TID PO 10/23/19 16:00 11/02/19 08:59 Senna (Senokot) 1 tab QHS PO 10/23/19 21:00 11/01/19 20:36 Spironolactone (Aldactone) 12.5 mg DAILY PO 10/24/19 09:00 11/02/19 09:05 Tamsulosin HCl (Flomax) 0.4 mg QHS PO 10/29/19 21:00 11/01/19 20:35 Tramadol HCl (Ultram) 25 mg QHS PRN PO MODERATE PAIN (PS 5-7) 10/29/19 21:00 Tramadol HCl (Ultram) 25 mg TID@0800,1200,1600 PO 10/29/19 12:00 11/02/19 11:53 Tramadol HCl (Ultram) 50 mg Q4HP PRN PO MODERATE PAIN (PS 5-7) 10/23/19 12:15 10/29/19 11:57 DC 10/29/19 08:53 Warfarin Sodium (Coumadin) 2.5 mg DAILY@17 PO 10/28/19 17:00 11/01/19 17:13 Warfarin Sodium (Coumadin) 3 mg DAILY@17 PO 10/27/19 17:00 10/28/19 07:14 DC Warfarin Sodium (Coumadin) 4 mg DAILY@1700 PO 10/23/19 17:00 10/26/19 10:58 DC 10/25/19 16:35 JAC LUNA MD Nov 02, 2019 14:05
[2019-11-02] MEDS: WARFARIN SOD 2.5 MG TAB PO SCH (16:34)
[2019-11-02 20:00] VITALS: BP 138/75
[2019-11-02] MEDS: DULoxetine 30 MG CAP (CYMBALTA) PO SCH (20:10)
[2019-11-02] MEDS: TAMSULOSIN 0.4 MG CAP PO SCH (20:11)
[2019-11-02] MEDS: ATORVASTATIN 20 MG TAB PO SCH (20:12)
[2019-11-02] MEDS: SENNA 8.6 MG TAB (SENOKOT) PO SCH (20:12)
[2019-11-03 06:00] VITALS: BP 138/75
[2019-11-03 07:34] LABS: INR 1.96; PROTHROMBIN TIME 22.1 SECONDS (11.8-14.0)
[2019-11-03] MEDS: traMADol 50 MG TAB PO SCH ×3 (07:46→16:00)
[2019-11-03] MEDS: CARVedilol 12.5 MG TAB PO SCH ×2 (07:46→20:14)
[2019-11-03] MEDS: DOCUSATE SODIUM 100 MG CAP PO SCH ×2 (07:47→20:13)
[2019-11-03] MEDS: CHLORTHALIDONE 12.5MG PER 1/2 TABLET PO SCH (07:47)
[2019-11-03] MEDS: SPIRONOLACTONE 12.5MG PER 1/2 TABLET PO SCH (07:47)
[2019-11-03] MEDS: AMIODARONE 200 MG TAB (PACERONE) PO SCH (07:47)
[2019-11-03] MEDS: REMEDY PHYTOPLEX Z-GUARD PASTE 113GM TUBE (FROM STOREROOM PRODUCT) TOP SCH ×3 (07:48→20:13)
[2019-11-03] MEDS: PANTOPRAZOLE 40MG TAB (PROTONIX) PO SCH (07:48)
[2019-11-03] MEDS: ACETAMINOPHEN 500 MG TAB PO SCH ×3 (07:48→20:12)
[2019-11-03] MEDS: POTASSIUM CHLORIDE 10 MEQ SR TABLET PO SCH ×3 (07:48→20:12)
[2019-11-03 08:00] VITALS: BP 143/71
[2019-11-03 13:58] VITALS: BP 121/61
[2019-11-03] MEDS: WARFARIN SOD 2.5 MG TAB PO SCH (16:07)
[2019-11-03 20:00] VITALS: BP 154/78
[2019-11-03] MEDS: DULoxetine 30 MG CAP (CYMBALTA) PO SCH (20:13)
[2019-11-03] MEDS: ATORVASTATIN 20 MG TAB PO SCH (20:13)
[2019-11-03] MEDS: SENNA 8.6 MG TAB (SENOKOT) PO SCH (20:13)
[2019-11-03] MEDS: TAMSULOSIN 0.4 MG CAP PO SCH (20:13)
[2019-11-04 05:49] VITALS: BP 137/88
[2019-11-04 06:56] LABS: INR 2.17
[2019-11-04] MEDS: DOCUSATE SODIUM 100 MG CAP PO SCH ×2 (10:18→20:40)
[2019-11-04] MEDS: CHLORTHALIDONE 12.5MG PER 1/2 TABLET PO SCH (10:18)
[2019-11-04] MEDS: AMIODARONE 200 MG TAB (PACERONE) PO SCH (10:18)
[2019-11-04] MEDS: PANTOPRAZOLE 40MG TAB (PROTONIX) PO SCH (10:18)
[2019-11-04] MEDS: POTASSIUM CHLORIDE 10 MEQ SR TABLET PO SCH ×3 (10:19→20:40)
[2019-11-04] MEDS: SPIRONOLACTONE 12.5MG PER 1/2 TABLET PO SCH (10:19)
[2019-11-04] MEDS: traMADol 50 MG TAB PO SCH ×3 (10:20→16:53)
[2019-11-04] MEDS: ACETAMINOPHEN 500 MG TAB PO SCH ×3 (10:21→20:40)
[2019-11-04] MEDS: REMEDY PHYTOPLEX Z-GUARD PASTE 113GM TUBE (FROM STOREROOM PRODUCT) TOP SCH ×3 (10:24→20:42)
[2019-11-04] MEDS: CARVedilol 12.5 MG TAB PO SCH ×2 (10:27→20:40)
[2019-11-04 14:00] VITALS: BP 157/74
[2019-11-04] MEDS: WARFARIN SOD 2.5 MG TAB PO SCH (16:52)
[2019-11-04 20:00] VITALS: BP 138/72
[2019-11-04] MEDS: DULoxetine 30 MG CAP (CYMBALTA) PO SCH (20:39)
[2019-11-04] MEDS: SENNA 8.6 MG TAB (SENOKOT) PO SCH (20:40)
[2019-11-04] MEDS: TAMSULOSIN 0.4 MG CAP PO SCH (20:40)
[2019-11-04] MEDS: ATORVASTATIN 20 MG TAB PO SCH (20:40)
[2019-11-05 06:00] VITALS: BP 163/79
[2019-11-05 08:37] LABS: BASO % 0.6 % (0.0-1.0); EOS # 0.1 10^3/uL (0.0-0.5); EOS % 1.5 % (0.0-3.0); HEMATOCRIT 38.5 % (42.0-52.0); HEMOGLOBIN 11.7 g/dl (13.5-17.5); LYMPH # 0.7 10^3/uL (1.5-5.0); LYMPH % 15.4 % (24.0-44.0); MEAN CORPUSCULAR HEMOGLOBIN 27.3 pg (27.0-33.0); MEAN CORPUSCULAR HGB CONC 30.4 g/dl (32.0-36.5); MEAN CORPUSCULAR VOLUME 89.7 fl (80.0-96.0); MONO # 0.4 10^3/uL (0.0-0.8); MONO % 8.1 % (0.0-5.0); NEUTROPHILS # 3.6 10^3/uL (1.5-8.5); PLATELET COUNT, AUTOMATED 268 10^3/uL (150-450); RED BLOOD COUNT 4.29 10^6/uL (4.30-6.10); WHITE BLOOD COUNT 4.8 10^3/uL (4.0-10.0)
[2019-11-05 08:49] LABS: INR 2.06
[2019-11-05] MEDS: PANTOPRAZOLE 40MG TAB (PROTONIX) PO SCH (08:51)
[2019-11-05] MEDS: AMIODARONE 200 MG TAB (PACERONE) PO SCH (08:51)
[2019-11-05] MEDS: traMADol 50 MG TAB PO SCH ×3 (08:52→16:59)
[2019-11-05] MEDS: POTASSIUM CHLORIDE 10 MEQ SR TABLET PO SCH ×3 (08:53→19:59)
[2019-11-05] MEDS: CHLORTHALIDONE 12.5MG PER 1/2 TABLET PO SCH (08:54)
[2019-11-05] MEDS: ACETAMINOPHEN 500 MG TAB PO SCH ×3 (08:54→20:01)
[2019-11-05 08:55] LABS: BLOOD UREA NITROGEN 22 MG/DL (7-18); CALCIUM LEVEL 8.6 MG/DL (8.8-10.2); CARBON DIOXIDE LEVEL 30 MEQ/L (21-32); CHLORIDE LEVEL 103 MEQ/L (98-107); CREATININE FOR GFR 1.16 MG/DL (0.70-1.30); GLOMERULAR FILTRATION RATE > 60.0 (>42); GLUCOSE, FASTING 109 MG/DL (70-100); POTASSIUM SERUM 4.1 MEQ/L (3.5-5.1); SODIUM LEVEL 139 MEQ/L (136-145)
[2019-11-05] MEDS: CARVedilol 12.5 MG TAB PO SCH ×2 (08:55→20:00)
[2019-11-05] MEDS: SPIRONOLACTONE 12.5MG PER 1/2 TABLET PO SCH (08:56)
[2019-11-05] MEDS: REMEDY PHYTOPLEX Z-GUARD PASTE 113GM TUBE (FROM STOREROOM PRODUCT) TOP SCH ×3 (08:56→20:01)
[2019-11-05] MEDS: DOCUSATE SODIUM 100 MG CAP PO SCH ×2 (08:56→19:58)
[2019-11-05] MEDS ORDERED: amLODIPine 5 MG TAB PO ONE (10:30)
[2019-11-05 13:58] VITALS: BP 131/80
--- NOTE | 2019-11-05 15:32 | IPNPDOC ---
PM&R Progress Note DATE OF SERVICE: Nov 05, 2019 [employer] Progress Note Subjective: Patient seen in his room stating his gluteal muscles hurt from exercising and that he feels ready to go home this week. REVIEW OF SYSTEMS: The following is a completed review of systems and has been reviewed. Review of systems otherwise unremarkable. PAIN: Patient self reports right hip pain EYES: No recent vision changes EARS, NOSE, & THROAT: No throat pain, or dysphagia, or rhinorrhea CARDIOVASCULAR: Denies chest pain or palpitations PULMONARY: Denies shortness of breath, +dry cough GASTROINTESTINAL: Denies constipation/diarrhea GENITOURINARY: denies dysuria, +urinary frequency (chronic) MUSCULOSKELETAL: right hip fracture NEUROLOGICAL:mild right sided paresis HEMATOLOGICAL: denies easy bruising SKIN: +surgical incision PSYCHIATRIC: Unremarkable All other review of systems found to be negative. PHYSICAL EXAMINATION: VITAL SIGNS: Please see below. GENERAL: Pleasant and cooperative. No acute distress. HEENT: PERRL. Extraocular movements intact. Clear conjunctiva CARDIOVASCULAR: Regular rate and rhythm. No murmurs, rubs, or gallops LUNGS: Clear to auscultation bilaterally. No wheezes. No rhonchi ABDOMEN: Soft, nontender, nondistended. Positive bowel sounds. Normal active bowel sounds]. NEUROLOGICAL: Alert and oriented times three. Cranial nerves II through XII grossly intact. Sensation grossly intact all 4limbs including 1 web space right foot EXTREMITIES:5\5 strength bilat upper extremity, 4\5 strength right ankle DF/EHL and PF (limited due to recent surgery) 5/5 strength in left lower extremity SKIN:sacrum with blanchable erythema, right hip incision with mild edema/erythema, no induration -right heel with blister (unstageable and present on admission) ASSESSMENT:74-year-old M with past medical history of CVA with right sided weakness who presents status post hip fracture PLAN: 1. Rehab- PT/OT advance gait and ADL training maintain total hip precautions for RLE, strengthen/stretch/maintain ROM all 4 limbs, dynamic balance training 2. Neuro: patient reporting his right arm feels a little weaker since surgery, physical exam with very subtle change in MMT still a 5/5-repeat MRI negative for new infarct-stable 3. Ortho: s/p right hip fracture with shauna-arthroplasty, f/u ortho- consulted -maintain WBAT with hip precautions 4. Cardiac: hx of mechanical valve replacement with Afib, c/u warfarin, monitor and manage daily INR, c/u Carvedilol and Amiodarone -f/u PMD and cardiology (Dr. Alfaro) for known thoracic aortic aneurysm -hx of diastolic CHF c/u diuretics, fluid restrictions, daily weight -patient recently started on potassium supplements, will c/u and manage-stable -HLD c/u statin -HTN-patient with elevated BPs, will add amlodipine and monitor -medicine consulted to assist in overall management 5. Resp: encourage incentive spirometry, monitor for infection 6. GI ppx: Protonix 7. DVT ppx: warfarin, TEDs 8. Pain: Tylenol 1g TID standing, c/u tramadol to standing and qHS at night as patient self-limiting in therapy due to fear of pain 9. Psych: hx of depression, c/u Cymbalta 60mg qHS 10. Skin: c/u barrier cream, daily skin-prep and dressing change to right heel, heel float boot- -post-op shoe to the right when in therapy and to be worn at home until blister heals 11. : c/u Flomax for suspected BPH 11. Dispo: 11-08-19 to home, progressing towards goals Allergies Coded Allergies: No Known Allergies (Unverified , 07/15/16) Vital Signs Vital Signs Date Time Temp Pulse Resp B/P (MAP) Pulse Ox O2 Delivery O2 Flow Rate FiO2 11/05/19 13:58 98.2 69 18 131/80 (97) 95 Room Air Laboratory Data CBC/BMP Laboratory Tests 11/05/19 08:16 Labs 24H Laboratory Tests 2 11/05/19 08:16: Immature Granulocyte % (Auto) 0.4, Neutrophils (%) (Auto) 74.0H, Lymphocytes (%) (Auto) 15.4L, Monocytes (%) (Auto) 8.1H, Eosinophils (%) (Auto) 1.5, Basophils (%) (Auto) 0.6, Neutrophils # (Auto) 3.6, Lymphocytes # (Auto) 0.7L, Monocytes # (Auto) 0.4, Eosinophils # (Auto) 0.1, Basophils # (Auto) 0.0, Nucleated Red Blood Cells % (auto) 0.0, Prothrombin Time 23.0H, Prothromb Time International Ratio 2.06, Anion Gap 6L, Glomerular Filtration Rate > 60.0, Calcium Level 8.6L Current Medications Current Medications Current Medications Medications (Trade) Dose Ordered Sig/Cassandra Route PRN Reason Start Time Stop Time Status Last Admin Dose Admin Acetaminophen (Tylenol Tab) 1,000 mg TID PO 10/23/19 16:00 11/05/19 08:54 Albuterol/ Ipratropium (Duoneb (Ipr 0.5mg/Alb 2.5mg)) 3 ml RTID NEB 10/23/19 14:00 11/02/19 10:12 DC 11/02/19 07:37 Albuterol/ Ipratropium (Duoneb (Ipr 0.5mg/Alb 2.5mg)) 3 ml TIDP PRN NEB cough/wheeze 11/02/19 14:00 Amiodarone HCl (Pacerone, Cordarone) 200 mg DAILY PO 10/24/19 09:00 11/05/19 08:51 Amlodipine Besylate (Norvasc) 10 mg DAILY PO 11/06/19 09:00 Atorvastatin Calcium (Lipitor) 40 mg QHS PO 10/23/19 21:00 11/04/19 20:40 Bisacodyl (Dulcolax Suppository) 10 mg DAILYPRN PRN [place] CONSTIPATION 10/23/19 12:15 Carvedilol (COReg) 37.5 mg BID PO 10/23/19 21:00 11/05/19 08:55 Chlorthalidone (Hygroton, Chlorthalidone) 12.5 mg DAILY PO 10/24/19 09:00 11/05/19 08:54 Docusate Sodium (Colace) 100 mg BID PO 10/23/19 21:00 11/05/19 08:56 Duloxetine HCl (Cymbalta) 60 mg QHS PO 10/23/19 21:00 11/04/19 20:39 Miscellaneous (Unresolved Clarification Entry) SEE LABEL COMMENTS DAILY XX 11/03/19 09:00 11/05/19 07:48 DC Pantoprazole Sodium (Protonix) 40 mg DAILY PO 10/24/19 09:00 11/05/19 08:51 Potassium Chloride (Micro-K Extencaps) 20 meq TID PO 10/23/19 16:00 11/05/19 08:53 Senna (Senokot) 1 tab QHS PO 10/23/19 21:00 11/04/19 20:40 Spironolactone (Aldactone) 12.5 mg DAILY PO 10/24/19 09:00 11/05/19 08:56 Tamsulosin HCl (Flomax) 0.4 mg QHS PO 10/29/19 21:00 11/04/19 20:40 Tramadol HCl (Ultram) 25 mg QHS PRN PO MODERATE PAIN (PS 5-7) 10/29/19 21:00 Tramadol HCl (Ultram) 25 mg TID@0800,1200,1600 PO 10/29/19 12:00 11/05/19 12:19 Tramadol HCl (Ultram) 50 mg Q4HP PRN PO MODERATE PAIN (PS 5-7) 10/23/19 12:15 10/29/19 11:57 DC 10/29/19 08:53 Warfarin Sodium (Coumadin) 2.5 mg DAILY@17 PO 11/05/19 17:00 Warfarin Sodium (Coumadin) 2.5 mg DAILY@17 PO 11/05/19 17:00 Cancel Warfarin Sodium (Coumadin) 2.5 mg DAILY@17 PO 10/28/19 17:00 11/04/19 16:59 DC 11/04/19 16:52 Warfarin Sodium (Coumadin) 3 mg DAILY@17 PO 10/27/19 17:00 10/28/19 07:14 DC Warfarin Sodium (Coumadin) 4 mg DAILY@1700 PO 10/23/19 17:00 10/26/19 10:58 DC 10/25/19 16:35 JAC LUNA MD Nov 05, 2019 15:32
[2019-11-05] MEDS ORDERED: WARFARIN SOD 2.5 MG TAB PO ONE (17:00)
[2019-11-05] MEDS ORDERED: WARFARIN SOD 2.5 MG TAB PO SCH (17:00)
[2019-11-05] MEDS: WARFARIN SOD 2.5 MG TAB PO SCH (17:00)
[2019-11-05] MEDS: SENNA 8.6 MG TAB (SENOKOT) PO SCH (19:58)
[2019-11-05] MEDS: TAMSULOSIN 0.4 MG CAP PO SCH (19:58)
[2019-11-05] MEDS: ATORVASTATIN 20 MG TAB PO SCH (19:59)
[2019-11-05] MEDS: DULoxetine 30 MG CAP (CYMBALTA) PO SCH (19:59)
[2019-11-05 20:00] VITALS: BP 143/73
[2019-11-06 06:00] VITALS: BP 155/72
[2019-11-06 06:42] LABS: INR 2.41; PROTHROMBIN TIME 26.1 SECONDS (11.8-14.0)
[2019-11-06] MEDS: DOCUSATE SODIUM 100 MG CAP PO SCH ×2 (08:02→21:18)
[2019-11-06] MEDS: traMADol 50 MG TAB PO SCH ×3 (08:02→16:47)
[2019-11-06] MEDS: POTASSIUM CHLORIDE 10 MEQ SR TABLET PO SCH ×3 (08:02→21:18)
[2019-11-06] MEDS: CARVedilol 12.5 MG TAB PO SCH ×2 (08:03→21:18)
[2019-11-06] MEDS: AMIODARONE 200 MG TAB (PACERONE) PO SCH (08:03)
[2019-11-06] MEDS: PANTOPRAZOLE 40MG TAB (PROTONIX) PO SCH (08:03)
[2019-11-06] MEDS: CHLORTHALIDONE 12.5MG PER 1/2 TABLET PO SCH (08:03)
[2019-11-06] MEDS: amLODIPine 10 MG TAB PO SCH (08:03)
[2019-11-06] MEDS: ACETAMINOPHEN 500 MG TAB PO SCH ×3 (08:04→21:17)
[2019-11-06] MEDS: REMEDY PHYTOPLEX Z-GUARD PASTE 113GM TUBE (FROM STOREROOM PRODUCT) TOP SCH ×3 (08:04→21:21)
[2019-11-06] MEDS: SPIRONOLACTONE 12.5MG PER 1/2 TABLET PO SCH (08:04)
[2019-11-06] MEDS ORDERED: PANT40TA3 PO (10:28)
[2019-11-06] MEDS ORDERED: EPLE25TA PO (10:28)
[2019-11-06] MEDS ORDERED: TRAM50TA2 PO (10:28)
[2019-11-06] MEDS ORDERED: COUM2.5T17 PO (10:28)
[2019-11-06] MEDS ORDERED: FLOM0.4C39 PO (10:28)
[2019-11-06] MEDS ORDERED: CYMB1CAP5 PO (10:28)
[2019-11-06] MEDS ORDERED: AMLO10TA5 PO (10:28)
[2019-11-06] MEDS ORDERED: KLOR10TA76 PO (10:28)
[2019-11-06] MEDS ORDERED: ATOR40TA75 PO (10:28)
[2019-11-06] MEDS ORDERED: CHLO125TA PO (10:28)
[2019-11-06] MEDS ORDERED: CARV12.5 PO (10:28)
[2019-11-06] MEDS ORDERED: AMIO200T PO (10:28)
[2019-11-06 13:30] VITALS: BP 145/75
--- NOTE | 2019-11-06 14:48 | IPNPDOC ---
PM&R Progress Note DATE OF SERVICE: Nov 06, 2019 [employer] Progress Note Subjective: Patient seen in his room after therapy stating he feels good and has no complaints. He reports family training went well. REVIEW OF SYSTEMS: The following is a completed review of systems and has been reviewed. Review of systems otherwise unremarkable. PAIN: Patient self reports right hip pain EYES: No recent vision changes EARS, NOSE, & THROAT: No throat pain, or dysphagia, or rhinorrhea CARDIOVASCULAR: Denies chest pain or palpitations PULMONARY: Denies shortness of breath, +dry cough GASTROINTESTINAL: Denies constipation/diarrhea GENITOURINARY: denies dysuria, +urinary frequency (chronic) MUSCULOSKELETAL: right hip fracture NEUROLOGICAL:mild right sided paresis HEMATOLOGICAL: denies easy bruising SKIN: +surgical incision PSYCHIATRIC: Unremarkable All other review of systems found to be negative. PHYSICAL EXAMINATION: VITAL SIGNS: Please see below. GENERAL: Pleasant and cooperative. No acute distress. HEENT: PERRL. Extraocular movements intact. Clear conjunctiva CARDIOVASCULAR: Regular rate and rhythm. No murmurs, rubs, or gallops LUNGS: Clear to auscultation bilaterally. No wheezes. No rhonchi ABDOMEN: Soft, nontender, nondistended. Positive bowel sounds. Normal active bowel sounds]. NEUROLOGICAL: Alert and oriented times three. Cranial nerves II through XII grossly intact. Sensation grossly intact all 4limbs including 1 web space right foot EXTREMITIES:5\5 strength bilat upper extremity, 4\5 strength right ankle DF/EHL and PF (limited due to recent surgery) 5/5 strength in left lower extremity SKIN:sacrum with blanchable erythema, right hip incision with mild edema/erythema, no induration -right heel with blister (unstageable and present on admission) ASSESSMENT:74-year-old M with past medical history of CVA with right sided we akness who presents status post hip fracture PLAN: 1. Rehab- PT/OT advance gait and ADL training maintain total hip precautions for RLE, strengthen/stretch/maintain ROM all 4 limbs, dynamic balance training 2. Neuro: patient reporting his right arm feels a little weaker since surgery, physical exam with very subtle change in MMT still a 5/5-repeat MRI negative for new infarct-stable 3. Ortho: s/p right hip fracture with shauna-arthroplasty, f/u ortho- consulted -maintain WBAT with hip precautions 4. Cardiac: hx of mechanical valve replacement with Afib, c/u warfarin, monitor and manage daily INR, c/u Carvedilol and Amiodarone -f/u PMD and cardiology (Dr. Alfaro) for known thoracic aortic aneurysm -hx of diastolic CHF c/u diuretics, fluid restrictions, daily weight -patient recently started on potassium supplements, will c/u and manage-stable -HLD c/u statin -HTN-patient with elevated BPs, improved with amlodipine c/u to monitor -medicine consulted to assist in overall management 5. Resp: encourage incentive spirometry, monitor for infection 6. GI ppx: Protonix 7. DVT ppx: warfarin, TEDs 8. Pain: Tylenol 1g TID standing, c/u tramadol to standing and qHS at night as patient self-limiting in therapy due to fear of pain 9. Psych: hx of depression, c/u Cymbalta 60mg qHS 10. Skin: c/u barrier cream, daily skin-prep and dressing change to right heel, heel float boot- -post-op shoe to the right when in therapy and to be worn at home until blister heals-referral sent for follow-up with Dr. Chapman 11. : c/u Flomax for suspected BPH 11. Dispo: 11-08-19 to home, progressing towards goals Allergies Coded Allergies: No Known Allergies (Unverified , 07/15/16) Vital Signs Vital Signs Date Time Temp Pulse Resp B/P (MAP) Pulse Ox O2 Delivery O2 Flow Rate FiO2 11/06/19 13:30 96.4 74 18 145/75 (98) 98 Room Air Laboratory Data Labs 24H Laboratory Tests 2 11/06/19 06:17: Prothrombin Time 26.1H, Prothromb Time International Ratio 2.41 Current Medications Current Medications Current Medications Medications (Trade) Dose Ordered Sig/Cassandra Route PRN Reason Start Time Stop Time Status Last Admin Dose Admin Acetaminophen (Tylenol Tab) 1,000 mg TID PO 10/23/19 16:00 11/06/19 08:04 Albuterol/ Ipratropium (Duoneb (Ipr 0.5mg/Alb 2.5mg)) 3 ml RTID NEB 10/23/19 14:00 11/02/19 10:12 DC 11/02/19 07:37 Albuterol/ Ipratropium (Duoneb (Ipr 0.5mg/Alb 2.5mg)) 3 ml TIDP PRN NEB cough/wheeze 11/02/19 14:00 Amiodarone HCl (Pacerone, Cordarone) 200 mg DAILY PO 10/24/19 09:00 11/06/19 08:03 Amlodipine Besylate (Norvasc) 10 mg DAILY PO 11/06/19 09:00 11/06/19 08:03 Atorvastatin Calcium (Lipitor) 40 mg QHS PO 10/23/19 21:00 11/05/19 19:59 Bisacodyl (Dulcolax Suppository) 10 mg DAILYPRN PRN MA CONSTIPATION 10/23/19 12:15 Carvedilol (COReg) 37.5 mg BID PO 10/23/19 21:00 11/06/19 08:03 Chlorthalidone (Hygroton, Chlorthalidone) 12.5 mg DAILY PO 10/24/19 09:00 11/06/19 08:03 Docusate Sodium (Colace) 100 mg BID PO 10/23/19 21:00 11/06/19 08:02 Duloxetine HCl (Cymbalta) 60 mg QHS PO 10/23/19 21:00 11/05/19 19:59 Miscellaneous (Unresolved Clarification Entry) SEE LABEL COMMENTS DAILY XX 11/03/19 09:00 11/05/19 07:48 DC Pantoprazole Sodium (Protonix) 40 mg DAILY PO 10/24/19 09:00 11/06/19 08:03 Potassium Chloride (Micro-K Extencaps) 20 meq TID PO 10/23/19 16:00 11/06/19 08:02 Senna (Senokot) 1 tab QHS PO 10/23/19 21:00 11/05/19 19:58 Spironolactone (Aldactone) 12.5 mg DAILY PO 10/24/19 09:00 11/06/19 08:04 Tamsulosin HCl (Flomax) 0.4 mg QHS PO 10/29/19 21:00 11/05/19 19:58 Tramadol HCl (Ultram) 25 mg QHS PRN PO MODERATE PAIN (PS 5-7) 10/29/19 21:00 Tramadol HCl (Ultram) 25 mg TID@0800,1200,1600 PO 10/29/19 12:00 11/06/19 12:01 Tramadol HCl (Ultram) 50 mg Q4HP PRN PO MODERATE PAIN (PS 5-7) 10/23/19 12:15 10/29/19 11:57 DC 10/29/19 08:53 Warfarin Sodium (Coumadin) 2.5 mg DAILY@17 PO 11/05/19 17:00 11/05/19 17:00 Warfarin Sodium (Coumadin) 2.5 mg DAILY@17 PO 11/05/19 17:00 Cancel Warfarin Sodium (Coumadin) 2.5 mg DAILY@17 PO 10/28/19 17:00 11/04/19 16:59 DC 11/04/19 16:52 Warfarin Sodium (Coumadin) 3 mg DAILY@17 PO 10/27/19 17:00 10/28/19 07:14 DC Warfarin Sodium (Coumadin) 4 mg DAILY@1700 PO 10/23/19 17:00 10/26/19 10:58 DC 10/25/19 16:35 JAC LUNA MD Nov 06, 2019 14:48
[2019-11-06] MEDS: WARFARIN SOD 2.5 MG TAB PO SCH (16:45)
[2019-11-06] MEDS: ATORVASTATIN 20 MG TAB PO SCH (21:18)
[2019-11-06] MEDS: TAMSULOSIN 0.4 MG CAP PO SCH (21:18)
[2019-11-06] MEDS: DULoxetine 30 MG CAP (CYMBALTA) PO SCH (21:18)
[2019-11-06] MEDS: SENNA 8.6 MG TAB (SENOKOT) PO SCH (21:18)
[2019-11-06 22:00] VITALS: BP 167/84
[2019-11-07 06:00] VITALS: BP 179/77
[2019-11-07 06:30] VITALS: BP 128/72
[2019-11-07 07:21] LABS: INR 2.3; PROTHROMBIN TIME 25.1 SECONDS (11.8-14.0)
[2019-11-07] MEDS: AMIODARONE 200 MG TAB (PACERONE) PO SCH (08:46)
[2019-11-07] MEDS: CHLORTHALIDONE 12.5MG PER 1/2 TABLET PO SCH (08:46)
[2019-11-07] MEDS: ACETAMINOPHEN 500 MG TAB PO SCH ×3 (08:46→20:23)
[2019-11-07] MEDS: CARVedilol 12.5 MG TAB PO SCH ×2 (08:47→20:23)
[2019-11-07] MEDS: PANTOPRAZOLE 40MG TAB (PROTONIX) PO SCH (08:47)
[2019-11-07] MEDS: amLODIPine 10 MG TAB PO SCH (08:48)
[2019-11-07] MEDS: traMADol 50 MG TAB PO SCH ×3 (08:48→16:35)
[2019-11-07] MEDS: DOCUSATE SODIUM 100 MG CAP PO SCH ×2 (08:49→20:23)
[2019-11-07] MEDS: POTASSIUM CHLORIDE 10 MEQ SR TABLET PO SCH ×3 (08:49→20:22)
[2019-11-07] MEDS: SPIRONOLACTONE 12.5MG PER 1/2 TABLET PO SCH (08:49)
[2019-11-07] MEDS: REMEDY PHYTOPLEX Z-GUARD PASTE 113GM TUBE (FROM STOREROOM PRODUCT) TOP SCH ×3 (08:58→20:23)
[2019-11-07 14:00] VITALS: BP 142/74
[2019-11-07] MEDS: WARFARIN SOD 2.5 MG TAB PO SCH (16:36)
[2019-11-07 20:00] VITALS: BP 142/80
[2019-11-07] MEDS: DULoxetine 30 MG CAP (CYMBALTA) PO SCH (20:22)
[2019-11-07] MEDS: ATORVASTATIN 20 MG TAB PO SCH (20:22)
[2019-11-07] MEDS: TAMSULOSIN 0.4 MG CAP PO SCH (20:23)
[2019-11-07] MEDS: SENNA 8.6 MG TAB (SENOKOT) PO SCH (20:23)
[2019-11-08 06:00] VITALS: BP 149/72
[2019-11-08] MEDS: AMIODARONE 200 MG TAB (PACERONE) PO SCH (08:29)
[2019-11-08] MEDS: DOCUSATE SODIUM 100 MG CAP PO SCH (08:29)
[2019-11-08] MEDS: CHLORTHALIDONE 12.5MG PER 1/2 TABLET PO SCH (08:29)
[2019-11-08] MEDS: ACETAMINOPHEN 500 MG TAB PO SCH (08:29)
[2019-11-08] MEDS: SPIRONOLACTONE 12.5MG PER 1/2 TABLET PO SCH (08:30)
[2019-11-08] MEDS: POTASSIUM CHLORIDE 10 MEQ SR TABLET PO SCH (08:30)
[2019-11-08] MEDS: CARVedilol 12.5 MG TAB PO SCH (08:30)
[2019-11-08 08:31] VITALS: BP 149/72
[2019-11-08] MEDS: amLODIPine 10 MG TAB PO SCH (08:31)
[2019-11-08] MEDS: PANTOPRAZOLE 40MG TAB (PROTONIX) PO SCH (08:31)
[2019-11-08] MEDS: traMADol 50 MG TAB PO SCH ×2 (08:31→12:00)
[2019-11-08] MEDS: REMEDY PHYTOPLEX Z-GUARD PASTE 113GM TUBE (FROM STOREROOM PRODUCT) TOP SCH (08:34)
--- NOTE | 2019-11-08 11:42 | IPNPDOC ---
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 REVIEW OF SYSTEMS: The following is a completed review of systems and has been reviewed. Review of systems otherwise unremarkable. PAIN: Patient self reports right hip pain EYES: No recent vision changes EARS, NOSE, & THROAT: No throat pain, or dysphagia, or rhinorrhea CARDIOVASCULAR: Denies chest pain or palpitations PULMONARY: Denies shortness of breath, +dry cough GASTROINTESTINAL: Denies constipation/diarrhea GENITOURINARY: denies dysuria, +urinary frequency (chronic) MUSCULOSKELETAL: right hip fracture NEUROLOGICAL:mild right sided paresis HEMATOLOGICAL: denies easy bruising SKIN: +surgical incision PSYCHIATRIC: Unremarkable All other review of systems found to be negative. PHYSICAL EXAMINATION: VITAL SIGNS: Please see below. GENERAL: Pleasant and cooperative. No acute distress. HEENT: PERRL. Extraocular movements intact. Clear conjunctiva CARDIOVASCULAR: Regular rate and rhythm. No murmurs, rubs, or gallops LUNGS: Clear to auscultation bilaterally. No wheezes. No rhonchi ABDOMEN: Soft, nontender, nondistended. Positive bowel sounds. Normal active bowel sounds]. NEUROLOGICAL: Alert and oriented times three. Cranial nerves II through XII grossly intact. Sensation grossly intact all 4limbs including 1 web space right foot EXTREMITIES:5\5 strength bilat upper extremity, 4\5 strength right ankle DF/EHL and PF (limited due to recent surgery) 5/5 strength in left lower extremity SKIN:sacrum with blanchable erythema, right hip incision with mild edema/erythema, no induration -right heel with blister (unstageable and present on admission) ASSESSMENT:74-year-old M with past medical history of CVA with right sided weakness who presents status post hip fracture PLAN: 1. Rehab- PT/OT advance gait and ADL training maintain total hip precautions for RLE, strengthen/stretch/maintain ROM all 4 limbs, dynamic balance training 2. Neuro: patient reporting his right arm feels a little weaker since surgery, physical exam with very subtle change in MMT still a 5/5-repeat MRI negative for new infarct-stable 3. Ortho: s/p right hip fracture with shauna-arthroplasty, f/u ortho- consulted -maintain WBAT with hip precautions 4. Cardiac: hx of mechanical valve replacement with Afib, c/u warfarin, monitor and manage daily INR, c/u Carvedilol and Amiodarone -f/u PMD and cardiology (Dr. Alfaro) for known thoracic aortic aneurysm -hx of diastolic CHF c/u diuretics, fluid restrictions, daily weight -patient recently started on potassium supplements, will c/u and manage-stable -HLD c/u statin -HTN-patient with elevated BPs, improved with amlodipine c/u to monitor -medicine consulted to assist in overall management 5. Resp: encourage incentive spirometry, monitor for infection 6. GI ppx: Protonix 7. DVT ppx: warfarin, TEDs 8. Pain: Tylenol 1g TID standing, c/u tramadol to standing and qHS at night as patient self-limiting in therapy due to fear of pain 9. Psych: hx of depression, c/u Cymbalta 60mg qHS 10. Skin: c/u barrier cream, daily skin-prep and dressing change to right heel, heel float boot- -post-op shoe to the right when in therapy and to be worn at home until blister heals-referral sent for follow-up with Dr. Chapman 11. : c/u Flomax for suspected BPH 11. Dispo: 11-08-19 to home, progressing towards goals Allergies Coded Allergies: No Known Allergies (Unverified , 07/15/16) Vital Signs Vital Signs Date Time Temp Pulse Resp B/P (MAP) Pulse Ox O2 Delivery O2 Flow Rate FiO2 11/08/19 08:31 58 149/72 11/08/19 08:31 18 Room Air 11/08/19 06:00 97.3 97 Current Medications Current Medications Current Medications Medications (Trade) Dose Ordered Sig/Cassandra Route PRN Reason Start Time Stop Time Status Last Admin Dose Admin Acetaminophen (Tylenol Tab) 1,000 mg TID PO 10/23/19 16:00 11/08/19 08:29 Albuterol/ Ipratropium (Duoneb (Ipr 0.5mg/Alb 2.5mg)) 3 ml RTID NEB 10/23/19 14:00 11/02/19 10:12 DC 11/02/19 07:37 Albuterol/ Ipratropium (Duoneb (Ipr 0.5mg/Alb 2.5mg)) 3 ml TIDP PRN NEB cough/wheeze 11/02/19 14:00 Amiodarone HCl (Pacerone, Cordarone) 200 mg DAILY PO 10/24/19 09:00 11/08/19 08:29 Amlodipine Besylate (Norvasc) 10 mg DAILY PO 11/06/19 09:00 11/08/19 08:31 Atorvastatin Calcium (Lipitor) 40 mg QHS PO 10/23/19 21:00 11/07/19 20:22 Bisacodyl (Dulcolax Suppository) 10 mg DAILYPRN PRN ME CONSTIPATION 10/23/19 12:15 Carvedilol (COReg) 37.5 mg BID PO 10/23/19 21:00 11/08/19 08:30 Chlorthalidone (Hygroton, Chlorthalidone) 12.5 mg DAILY PO 10/24/19 09:00 11/08/19 08:29 Docusate Sodium (Colace) 100 mg BID PO 10/23/19 21:00 11/08/19 08:29 Duloxetine HCl (Cymbalta) 60 mg QHS PO 10/23/19 21:00 11/07/19 20:22 Miscellaneous (Unresolved Clarification Entry) SEE LABEL COMMENTS DAILY XX 11/03/19 09:00 11/05/19 07:48 DC Pantoprazole Sodium (Protonix) 40 mg DAILY PO 10/24/19 09:00 11/08/19 08:31 Potassium Chloride (Micro-K Extencaps) 20 meq TID PO 10/23/19 16:00 11/08/19 08:30 Senna (Senokot) 1 tab QHS PO 10/23/19 21:00 11/06/19 21:18 Spironolactone (Aldactone) 12.5 mg DAILY PO 10/24/19 09:00 11/08/19 08:30 Tamsulosin HCl (Flomax) 0.4 mg QHS PO 10/29/19 21:00 11/07/19 20:23 Tramadol HCl (Ultram) 25 mg QHS PRN PO MODERATE PAIN (PS 5-7) 10/29/19 21:00 Tramadol HCl (Ultram) 25 mg TID@0800,1200,1600 PO 10/29/19 12:00 11/08/19 08:31 Tramadol HCl (Ultram) 50 mg Q4HP PRN PO MODERATE PAIN (PS 5-7) 10/23/19 12:15 10/29/19 11:57 DC 10/29/19 08:53 Warfarin Sodium (Coumadin) 2.5 mg DAILY@17 PO 11/05/19 17:00 11/07/19 16:36 Warfarin Sodium (Coumadin) 2.5 mg DAILY@17 PO 11/05/19 17:00 Cancel Warfarin Sodium (Coumadin) 2.5 mg DAILY@17 PO 10/28/19 17:00 11/04/19 16:59 DC 11/04/19 16:52 Warfarin Sodium (Coumadin) 3 mg DAILY@17 PO 10/27/19 17:00 10/28/19 07:14 DC Warfarin Sodium (Coumadin) 4 mg DAILY@1700 PO 10/23/19 17:00 10/26/19 10:58 DC 10/25/19 16:35 JAC LUNA MD Nov 08, 2019 11:41
--- NOTE | 2019-11-08 11:58 | PMRDS ---
DATE OF ADMISSION: 10/23/2019 DATE OF DISCHARGE: 11/08/2019 CHIEF COMPLAINT/DISCHARGE DIAGNOSIS: Hip fracture. HISTORY OF PRESENT ILLNESS: 74M pmh CAD s/p STEMI, HTN, depression, mechanical AVR 1985, Afib, CVA with residual right sided weakness, pulmonary HTN, thoracic aortic aneurysm who fell at home and presented to [facility] ED on 10-16-19 with right hip pain and difficulty walking. Xray revealed, Transverse fracture of the right femoral neck. He was found to have a supratherapeutic INR so surgery was postponed until 10/21/19 when he underwent a right hip hemiarthroplasty without complications. He was started on a Lovenox-Coumadin bridge with therapeutic INR and provided with supplemental potassium for hypokalemia. Cardiology performed ECHO showing diastolic dysfunction and suggested continuation of diuretics and fluid restriction. He was evaluated by therapy and was noted to have significant impairments in mobility and ADLs well below his prior level of function and deemed medically appropriate for discharge to ARU on 10-23-19. PAST MEDICAL HISTORY: As per history of present illness (HPI). HOSPITAL COURSE: The patient was admitted on a comprehensive physical therapy (PT)/occupational therapy (OT) program. He received 24-hour nursing supervision, and weekly team meetings were held to discuss his progress. The patient was able to maintain hip precautions in the setting of the hemiarthroplasty, and his pain was well controlled with tramadol and Tylenol. The patient arrived with an unstageable ulcer on the back of his right heel, which was provided with daily dressing changes and heel/foot boot. His international normalized ratio (INR) was stable during his hospital course while on Coumadin, and he had a mild elevation in his blood pressures toward the end of his stay which improved with the addition of amlodipine. He was started on Flomax for suspected benign prostatic hypertrophy (BPH) with modest improvement in his urinary stream. He made significant gains in therapy and was deemed medically and functionally stable to return home on 11/08/2019. DISCHARGE MEDICATIONS: As per instructions. FUNCTIONAL HISTORY ON DISCHARGE: The patient was standby assist for all functional transfers, able to ambulate 50 feet at a standby assist level, and in occupational therapy he was standby assist for toileting, showering, upper and lower body dressing. Thank you for this referral. edited: 11/09/2019 0752 yesi DIAZ
== END 2019-11-08 13:10 | disposition home health service (06) | DRG 560 ==
LOC: M PM&R 14:25
PROVIDERS: ADMIT Physical Medicine & Rehabilitation; ATTEND Physical Medicine & Rehabilitation
DX: S72.091D Other fracture of head and neck of right femur, subsequent encounter for closed fracture with routine healing (principal); I50.32 Chronic diastolic (congestive) heart failure; I69.351 Hemiplegia and hemiparesis following cerebral infarction affecting right dominant side; R26.81 Unsteadiness on feet; I11.0 Hypertensive heart disease with heart failure; R35.0 Frequency of micturition; I25.10 Atherosclerotic heart disease of native coronary artery without angina pectoris; I25.2 Old myocardial infarction; I27.20 Pulmonary hypertension, unspecified; I48.91 Unspecified atrial fibrillation; N40.1 Benign prostatic hyperplasia with lower urinary tract symptoms; L89.610 Pressure ulcer of right heel, unstageable; E87.6 Hypokalemia; F32.9 Major depressive disorder, single episode, unspecified; I71.2 Thoracic aortic aneurysm, without rupture; Z95.2 Presence of prosthetic heart valve; Z96.641 Presence of right artificial hip joint; Z87.891 Personal history of nicotine dependence; Z79.01 Long term (current) use of anticoagulants; Z79.899 Other long term (current) drug therapy

== ENCOUNTER 2020-01-21 09:26 | Outpatient (RCR) | payer MEDICARE ==
[~2020-01-21 09:26] MED LIST changes: +AMLO10TA5 PO; +CARV12.5 PO; -COUM1TAB14 PO; +COUM2.5T17 PO; +COUM4TAB8 PO; +CYMB1CAP5 PO; +FLOM0.4C39 PO; +KLOR10TA76 PO
== END 2020-01-22 ==
LOC: M PT 09:26
PROVIDERS: ATTEND Physician Assistant Medical
DX: Z51.89 Encounter for other specified aftercare (principal); G81.91 Hemiplegia, unspecified affecting right dominant side

== ENCOUNTER → 2020-02-22 | Outpatient (RCR) | payer MEDICARE ==
[~2020-02-22] MED LIST changes: -AMIO200T PO; +AMIO200T3 PO; -AMLO10TA5 PO; +AMLO1TAB25 PO; +PANT40TA29 PO; -PANT40TA3 PO
== END ==
LOC: M PT 01-25 10:12
PROVIDERS: ATTEND Physician Assistant Medical
DX: G81.91 Hemiplegia, unspecified affecting right dominant side (principal)

== ENCOUNTER → 2020-03-24 | Outpatient (RCR) | payer MEDICARE | LOC: M PT 02-25 09:30 | PROVIDERS: ATTEND Physician Assistant Medical | DX: G81.91 Hemiplegia, unspecified affecting right dominant side (principal); R26.89 Other abnormalities of gait and mobility ==

== ENCOUNTER 2020-04-11 09:28 | Outpatient (RCR) | payer MEDICARE | END 2020-04-23 | LOC: M PT 09:28 | PROVIDERS: ATTEND Physician Assistant Medical | DX: G81.91 Hemiplegia, unspecified affecting right dominant side (principal) ==

== ENCOUNTER 2020-06-13 17:29 | Emergency (ER) | payer MEDICARE ==
[~2020-06-13] VITALS: Ht 172.7 cm; Wt 92.7 kg
[2020-06-13 18:11] LABS: BASO % 0.2 % (0.0-1.0); EOS # 0.1 10^3/uL (0.0-0.5); EOS % 1.1 % (0.0-3.0); HEMATOCRIT 39.5 % (42.0-52.0); HEMOGLOBIN 12.5 g/dl (13.5-17.5); LYMPH # 0.9 10^3/uL (1.5-5.0); LYMPH % 9.6 % (24.0-44.0); MEAN CORPUSCULAR HGB CONC 31.6 g/dl (32.0-36.5); MEAN CORPUSCULAR VOLUME 82.3 fl (80.0-96.0); MONO # 1.1 10^3/uL (0.0-0.8); MONO % 11.3 % (0.0-5.0); NEUTROPHILS # 7.4 10^3/uL (1.5-8.5); NEUTROPHILS % 77.4 % (36.0-66.0); PLATELET COUNT, AUTOMATED 175 10^3/uL (150-450); WHITE BLOOD COUNT 9.6 10^3/uL (4.0-10.0)
[2020-06-13 18:22] LABS: INR 2.87; PROTHROMBIN TIME 30.7 SECONDS (12.5-14.3)
[2020-06-13 18:23] LABS: PARTIAL THROMBOPLASTIN TIME 42.8 SECONDS (24.2-38.5)
--- NOTE | 2020-06-13 18:24 | REP ---
INDICATION: CHEST PAIN COMPARISON: 10/18/2019 TECHNIQUE: Portable AP view of the chest FINDINGS: Stable cardiomegaly and evidence for prior sternotomy and cardiac valve repair. Lung aguilar demonstrate chronic changes without focal consolidation, effusion, or pneumothorax. Skeletal structures are intact. IMPRESSION: Chronic changes. No focal consolidation. <Electronically signed by Edmond Pro > 06/13/20 [id number]
[2020-06-13] MEDS ORDERED: ISOVUE-370 76% 100ML VIAL As Ordered ONE (19:49)
--- NOTE | 2020-06-13 20:55 | REPVR ---
PROCEDURE INFORMATION: Exam: CT Angiography Chest With Contrast Exam date and time: 06/13/2020 8:07 PM Age: 75 years old Clinical indication: Chest pain; Type not specified; Additional info: Chest pain radaiting to right neck R/O dissection TECHNIQUE: Imaging protocol: Computed tomographic angiography of the chest with intravenous contrast. 3D rendering (Not supervised by radiologist): MIP and/or 3D reconstructed images were created by the technologist. Radiation optimization: All CT scans at this facility use at least one of these dose optimization techniques: automated exposure control; mA and/or kV adjustment per patient size (includes targeted exams where dose is matched to clinical indication); or iterative reconstruction. Contrast material: ISOVUE 370; Contrast volume: 100 ml; Contrast route: INTRAVENOUS (IV); COMPARISON: CR PORTABLE CHEST X-RAY 2020-06-13 18:06 FINDINGS: Pulmonary arteries: No pulmonary emboli. Aorta: There is a thin septation within the ascending aneurysmal aorta which terminates at the aortic arch. There is additionally aneurysmal proximal ascending aorta measuring 6 cm. Mild aortic atherosclerosis. Other arteries: Moderate bilateral vertebral artery origin stenosis. Lungs: Mild centrilobular and paraseptal upper lung emphysema. Pleural space: Unremarkable. No pneumothorax. No pleural effusion. Heart: Aortic valve prosthetic surgical changes. Moderate coronary artery calcifications. Mediastinal space: Mild gastro-esophageal thickening. Question distal esophagitis. Small gastroesophageal sliding type hiatal hernia. Lymph nodes: Unremarkable. No enlarged lymph nodes. Stomach and bowel: Evidence of a dissection., though could be in part related to prior surgery. Recommend vascular surgery consultation. Bones/joints: Sternotomy. Soft tissues: Unremarkable. IMPRESSION: 1. Aortic valve prosthetic surgical changes. There is a thin septation within the ascending aneurysmal aorta which terminates at the aortic arch. Evidence of a dissection., though could be in part related to prior surgery. There is additionally aneurysmal proximal ascending aorta measuring 6 cm. Recommend vascular surgery consultation. 2. Mild gastro-esophageal thickening. Question distal esophagitis. Electronically signed by: Santos Jiang On 06/13/2020 20:55:25 PM
--- NOTE | 2020-06-13 21:15 | REPVR ---
PROCEDURE INFORMATION: Exam: CT Abdomen And Pelvis With Contrast Exam date and time: 06/13/2020 8:07 PM Age: 75 years old Clinical indication: Abdominal pain; Generalized; Additional info: Possible dissection TECHNIQUE: Imaging protocol: Computed tomography of the abdomen and pelvis with intravenous contrast. Radiation optimization: All CT scans at this facility use at least one of these dose optimization techniques: automated exposure control; mA and/or kV adjustment per patient size (includes targeted exams where dose is matched to clinical indication); or iterative reconstruction. Contrast material: ISOVUE 370; Contrast volume: 100 ml; Contrast route: INTRAVENOUS (IV); COMPARISON: CR Hip,AP,LAT to include Pelvis 2019-10-16 13:20 FINDINGS: Lungs: Right middle lobe 14 mm nodule. Recommend follow-up. Dependent subsegmental pulmonary atelectasis. Heart: Small pericardial effusion. Mediastinal space: Small gastroesophageal sliding type hiatal hernia. Liver: 1.3 cm liver cyst. Gallbladder and bile ducts: Normal. No calcified stones. No ductal dilation. Pancreas: Normal. No ductal dilation. Spleen: Normal. No splenomegaly. Adrenal glands: Normal. No mass. Kidneys and ureters: Numerous renal cysts, largest of which measures 1.8 cm. Stomach and bowel: Moderate sigmoid diverticulosis. Appendix: No evidence of appendicitis. Intraperitoneal space: Unremarkable. No free air. No significant fluid collection. Vasculature: Mild to moderate aortic and iliac artery atherosclerotic calcification. Lymph nodes: Unremarkable. No enlarged lymph nodes. Urinary bladder: Unremarkable as visualized. Reproductive: Unremarkable as visualized. Bones/joints: Right hip arthroplasty hardware. Relatively hypodense bones indicating osteopenia. Mild spondylosis. Soft tissues: Right inguinal fat protruding hernia. Left groin clips. IMPRESSION: 1. Right middle lobe 14 mm nodule. Recommend follow-up. 2. Moderate sigmoid diverticulosis. COMMENTS: 1. As per Fleischner Society guidelines for follow-up and management of pulmonary nodules: Recommend initial follow-up chest CT at 3, 9 and 24 months. Consider contrast enhanced chest CT, PET scan and/or biopsy as clinically warranted. 2. As per Fleischner Society guidelines for follow-up and management of pulmonary nodules: Recommend initial follow-up chest CT at 3, 9 and 24 months. Consider contrast enhanced chest CT, PET scan and/or biopsy as clinically warranted. 3. Consistent with the [employer]'s Incidental Findings Committee white paper (J Am Carmela Radiol 2018): Any incidental renal lesion less than 1 cm or classified as too small to characterize, or any incidental cystic renal lesion characterized as simple-appearing, is likely benign. No follow-up imaging is recommended for these lesions per consensus recommendations based on imaging criteria. Electronically signed by: Santos Jiang On 06/13/2020 21:15:08 PM
--- NOTE | 2020-06-13 21:45 | ECGEPIP ---
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
--- NOTE | 2020-06-13 21:47 | ECGEPIP ---
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
[2020-06-13 22:15] VITALS: BP 137/71
== END 2020-06-13 22:21 | disposition short-term general hospital (02) ==
LOC: EDBD 17:29 → M ED 17:29
DX: I71.01 Dissection of thoracic aorta (principal); I44.0 Atrioventricular block, first degree; I10 Essential (primary) hypertension; E78.5 Hyperlipidemia, unspecified; Z86.73 Personal history of transient ischemic attack (TIA), and cerebral infarction without residual deficits; Z87.891 Personal history of nicotine dependence; Z79.899 Other long term (current) drug therapy; Z79.01 Long term (current) use of anticoagulants
CPT/HCPCS: 71045; 71275; 74177; 80047; 83880; 84484; 85025; 85610; 85730; 93005; 93041; 94760; 99285; Q9967; U0002

== ENCOUNTER → 2020-06-18 | Outpatient (REF) | payer MEDICARE ==
[2020-06-18 13:14] LABS: INR 2.57; PROTHROMBIN TIME 28.2 SECONDS (12.5-14.3)
== END ==
LOC: M SHH 12:05
PROVIDERS: ATTEND Nurse Practitioner
DX: Z79.01 Long term (current) use of anticoagulants (principal); Z95.828 Presence of other vascular implants and grafts

== ENCOUNTER → 2020-07-01 | Outpatient (REF) | payer MEDICARE ==
[2020-07-01 15:13] LABS: INR 2.67
== END ==
LOC: M SHH 14:29
PROVIDERS: ATTEND Nurse Practitioner
DX: I35.0 Nonrheumatic aortic (valve) stenosis (principal)

== ENCOUNTER → 2020-08-28 | Outpatient (REF) | payer MEDICARE ==
[2020-08-28 13:26] LABS: BASO % 0.7 % (0.0-1.0); EOS # 0.1 10^3/uL (0.0-0.5); EOS % 1.7 % (0.0-3.0); HEMATOCRIT 36.4 % (42.0-52.0); HEMOGLOBIN 11.3 g/dl (13.5-17.5); LYMPH # 0.7 10^3/uL (1.5-5.0); LYMPH % 12.3 % (24.0-44.0); MEAN CORPUSCULAR HEMOGLOBIN 25.9 pg (27.0-33.0); MEAN CORPUSCULAR VOLUME 83.5 fl (80.0-96.0); MONO # 0.9 10^3/uL (0.0-0.8); MONO % 14.7 % (0.0-5.0); NEUTROPHILS # 4.1 10^3/uL (1.5-8.5); NEUTROPHILS % 70.3 % (36.0-66.0); PLATELET COUNT, AUTOMATED 208 10^3/uL (150-450); RED BLOOD COUNT 4.36 10^6/uL (4.30-6.10); WHITE BLOOD COUNT 5.8 10^3/uL (4.0-10.0)
[2020-08-28 14:06] LABS: ALBUMIN 3.6 GM/DL (3.2-5.2); BILIRUBIN,TOTAL 0.4 MG/DL (0.2-1.0); CALCIUM LEVEL 8.8 MG/DL (8.8-10.2); CREATININE FOR GFR 1.35 MG/DL (0.70-1.30); GLOMERULAR FILTRATION RATE 54.6 (>42); POTASSIUM SERUM 4.3 MEQ/L (3.5-5.1); THYROID STIMULATING HORMONE 2.07 uIU/ML (0.358-3.740); TOTAL PROTEIN 6.8 GM/DL (6.4-8.2)
== END ==
LOC: M LABDRWAD 12:31
PROVIDERS: ATTEND Internal Medicine Cardiovascular Disease
DX: I48.0 Paroxysmal atrial fibrillation (principal); I35.9 Nonrheumatic aortic valve disorder, unspecified; I50.32 Chronic diastolic (congestive) heart failure; I11.0 Hypertensive heart disease with heart failure; I49.3 Ventricular premature depolarization

== ENCOUNTER → 2020-09-08 | Outpatient (REF) | payer MEDICARE ==
[2020-09-08 13:55] LABS: ALBUMIN 3.8 GM/DL (3.2-5.2); CALCIUM LEVEL 9.1 MG/DL (8.8-10.2); CREATININE FOR GFR 1.43 MG/DL (0.70-1.30); MAGNESIUM LEVEL 2.3 MG/DL (1.8-2.4); PHOSPHORUS LEVEL 3.2 MG/DL (2.5-4.9); POTASSIUM SERUM 4.4 MEQ/L (3.5-5.1)
== END ==
LOC: M LABDRWAD 12:46
PROVIDERS: ATTEND Internal Medicine Cardiovascular Disease
DX: I50.33 Acute on chronic diastolic (congestive) heart failure (principal)

== ENCOUNTER → 2020-10-17 | Outpatient (REF) | payer MEDICARE ==
[~2020-10-17] MED LIST changes: +HYDR-3911 PO; +ISOS1TAB35 PO; +K-TA10TA2 PO; +OMEP40CA97 PO; +TORS10TA3 PO; +WARF-18 PO
[2020-10-17 13:05] LABS: ALBUMIN 3.6 GM/DL (3.2-5.2); CALCIUM LEVEL 8.5 MG/DL (8.8-10.2); CREATININE FOR GFR 1.29 MG/DL (0.70-1.30); GLOMERULAR FILTRATION RATE 57.5 (>42); PHOSPHORUS LEVEL 2.8 MG/DL (2.5-4.9); POTASSIUM SERUM 4.2 MEQ/L (3.5-5.1)
== END ==
LOC: M LABDRWAD 12:17
PROVIDERS: ATTEND Internal Medicine Cardiovascular Disease
DX: I11.0 Hypertensive heart disease with heart failure (principal); I50.32 Chronic diastolic (congestive) heart failure

== ENCOUNTER → 2020-10-24 | Outpatient (CLI) | payer MEDICARE | LOC: M LABSMTC 09:51 | PROVIDERS: ATTEND Anesthesiology | DX: Z01.812 Encounter for preprocedural laboratory examination (principal) ==

== ENCOUNTER 2020-10-29 06:33 | Day surgery (SDC) | payer MEDICARE ==
[~2020-10-29] VITALS: Ht 172.7 cm; Wt 91.6 kg
[2020-10-29] MEDS ORDERED: NS 1,000 ML IV ONE (07:00)
[2020-10-29] MEDS ORDERED: AMPICILLIN 2 GM VIAL (J0290 PER 500MG) As Ordered ONE (07:13)
[2020-10-29] MEDS ORDERED: AMPICILLIN SOD 2 GM in D5W MINI-BAG PLUS 100 ML IV SCH (07:25)
[2020-10-29] MEDS ORDERED: propofoL 200 MG/20 ML VIAL As Ordered ONE (07:54)
[2020-10-29] MEDS ORDERED: LIDOCAINE 2% 100MG/5ML SDV (FOR ANES.) As Ordered ONE (07:54)
--- NOTE | 2020-10-29 07:56 | ROOR ---
Patient Name: Dusty Mccray Procedure Date: 10/29/2020 7:30 AM Date of : 1945 Age: 75 Room: [facility] Gender: Male Note Status: Finalized Procedure: Upper Endoscopy + Biopsies Indications: Abnormal CT of the GI tract Providers: Jose Brink MD Referring MD: HARLAN Mena Requesting Provider: Medicines: Monitored Anesthesia Care, Ampicillin 2 g IV Complications: No immediate complications. Procedure: Pre-Anesthesia Assessment: - The heart rate, respiratory rate, oxygen saturations, blood pressure, adequacy of pulmonary ventilation, and response to care were monitored throughout the procedure. The Endoscope was introduced through the mouth, and advanced to the second part of duodenum. The upper GI endoscopy was accomplished without difficulty. The patient tolerated the procedure well. Findings: The Z-line was regular and was found 40 cm from the incisors. Multiple biopsies were obtained with cold forceps for evaluation to rule out Fitzpatrick's Esophagus randomly at the gastroesophageal junction. A small hiatal hernia was present. No other significant abnormalities were identified in a careful examination of the stomach. The exam of the duodenum was otherwise normal. Impression: - Z-line regular, 40 cm from the incisors. - Small hiatal hernia. - Multiple biopsies were obtained at the gastroesophageal junction. - The examination was otherwise normal. Recommendation: - Patient has a contact number available for emergencies. The signs and symptoms of potential delayed complications were discussed with the patient. Return to normal activities tomorrow. Written discharge instructions were provided to the patient. - High fiber diet. - Discharge patient to home. - Follow an antireflux regimen. - Continue present medications. - Resume Coumadin (warfarin) at prior dose today. - Await pathology results. - Telephone GI clinic for pathology results in 1 week. - Return to referring physician. - The findings and recommendations were discussed with the patient. Procedure Code(s): --- Professional --- 70173, Esophagogastroduodenoscopy, flexible, transoral; with biopsy, single or multiple Diagnosis Code(s): --- Professional --- K44.9, Diaphragmatic hernia without obstruction or gangrene R93.3, Abnormal findings on diagnostic imaging of other parts of digestive tract CPT copyright 2019 [employer]. All rights reserved. The codes documented in this report are preliminary and upon wood shingle roofer review may be revised to meet current compliance requirements. oJse Brink MD Jose Brink MD 10/29/2020 7:55:24 AM Electronically signed by Jose Brink MD Number of Addenda: 0 Note Initiated On: 10/29/2020 7:30 AM Estimated Blood Loss: Estimated blood loss: none.
[2020-10-29 08:23] VITALS: BP 143/71
== END 2020-10-29 08:25 | disposition home or self-care (01) ==
LOC: M OPP 06:33
PROVIDERS: ATTEND Internal Medicine Gastroenterology
DX: K44.9 Diaphragmatic hernia without obstruction or gangrene (principal); K31.89 Other diseases of stomach and duodenum; R93.3 Abnormal findings on diagnostic imaging of other parts of digestive tract; I25.2 Old myocardial infarction; Z87.891 Personal history of nicotine dependence; Z79.01 Long term (current) use of anticoagulants; Z79.899 Other long term (current) drug therapy

== ENCOUNTER → 2020-12-09 | Outpatient (REF) | payer MEDICARE ==
[2020-12-09 18:32] LABS: ALBUMIN 3.6 GM/DL (3.2-5.2); CALCIUM LEVEL 8.2 MG/DL (8.8-10.2); CREATININE FOR GFR 1.25 MG/DL (0.70-1.30); GLOMERULAR FILTRATION RATE 59.6 (>42); PHOSPHORUS LEVEL 2.6 MG/DL (2.5-4.9); POTASSIUM SERUM 3.9 MEQ/L (3.5-5.1)
== END ==
LOC: M LABDRWAD 16:32
PROVIDERS: ATTEND Internal Medicine Cardiovascular Disease
DX: I50.32 Chronic diastolic (congestive) heart failure (principal)

== ENCOUNTER → 2020-12-09 | Outpatient (REF) | payer MEDICARE ==
[2020-12-09 18:19] LABS: BASO % 0.3 % (0.0-1.0); EOS # 0.1 10^3/uL (0.0-0.5); EOS % 1.1 % (0.0-3.0); HEMOGLOBIN 11.1 g/dl (13.5-17.5); LYMPH # 0.8 10^3/uL (1.5-5.0); MEAN CORPUSCULAR HEMOGLOBIN 24.8 pg (27.0-33.0); MEAN CORPUSCULAR VOLUME 82.8 fl (80.0-96.0); MONO # 0.7 10^3/uL (0.0-0.8); MONO % 11.2 % (2.0-8.0); NEUTROPHILS # 4.9 10^3/uL (1.5-8.5); NEUTROPHILS % 75.1 % (36.0-66.0); PLATELET COUNT, AUTOMATED 190 10^3/uL (150-450); RED BLOOD COUNT 4.47 10^6/uL (4.30-6.10); WHITE BLOOD COUNT 6.5 10^3/uL (4.0-10.0)
[2020-12-09 18:32] LABS: ALBUMIN 3.6 GM/DL (3.2-5.2); BILIRUBIN,TOTAL 0.4 MG/DL (0.2-1.0); CALCIUM LEVEL 8.3 MG/DL (8.8-10.2); CHOLESTEROL RISK RATIO 2.516 (<5); CREATININE FOR GFR 1.25 MG/DL (0.70-1.30); GLOMERULAR FILTRATION RATE 59.6 (>42); POTASSIUM SERUM 3.9 MEQ/L (3.5-5.1); TOTAL PROTEIN 6.7 GM/DL (6.4-8.2)
== END ==
LOC: M SFHCADAM 12:57
PROVIDERS: ATTEND Physician Assistant Medical
DX: I63.49 Cerebral infarction due to embolism of other cerebral artery (principal); I25.10 Atherosclerotic heart disease of native coronary artery without angina pectoris

== ENCOUNTER → 2020-12-19 | Outpatient (CLI) | payer MEDICARE ==
--- NOTE | 2020-12-19 10:15 | REPVR ---
PROCEDURE INFORMATION: Exam: CT Chest Without Contrast; Diagnostic Exam date and time: 12/19/2020 8:38 AM Age: 75 years old Clinical indication: Condition or disease; Other: Taa without rupture TECHNIQUE: Imaging protocol: Diagnostic computed tomography of the chest without contrast. 3D rendering (Not supervised by radiologist): MIP and/or 3D reconstructed images were created by the technologist. Radiation optimization: All CT scans at this facility use at least one of these dose optimization techniques: automated exposure control; mA and/or kV adjustment per patient size (includes targeted exams where dose is matched to clinical indication); or iterative reconstruction. COMPARISON: CT ANGIO CHEST 06/13/2020 7:52 PM FINDINGS: Lungs: Right middle lobe 14 mm nodule appears unchanged. Mild centrilobular and paraseptal emphysema as well as subpleural interstitial thickening which appears stable in distribution and extent. Mild dependent atelectasis. No consolidation. Pleural spaces: No pleural effusions. No pneumothorax. Heart: Stable mild cardiomegaly. Coronary artery calcification. Postoperative change from sternotomy and cardiac surgery with AVR. No pericardial effusion. Aorta: Atherosclerosis. Stable aneurysmal dilatation of the ascending thoracic aorta measuring 6.4 x 6.2 cm at the level of the right main pulmonary artery. Redemonstration of a thin curvilinear density within the aneurysm which is only faintly visualized but grossly unchanged and may represent chronic dissection or postsurgical change. No evidence of aneurysm rupture. Lymph nodes: Unremarkable. No enlarged lymph nodes. Bones/joints: Bones are demineralized. Old/healing right-sided rib fractures. Degenerative change within the spine. No acute fracture. Few scattered sclerotic foci appear unchanged. Soft tissues: Unremarkable. IMPRESSION: 1. Stable size and appearance of the ascending thoracic aortic aneurysm. There is redemonstration of a thin curvilinear density within the aneurysm which is only faintly visualized on this noncontrast examination. As previously discussed, this may represent chronic dissection or postsurgical change. 2. Chronic lung changes. 3. Stable right middle lobe 14 mm nodule. Recommend further evaluation with PET CT or repeat chest CT in 6 months. 4. Additional non-emergent findings, as discussed above. Electronically signed by: Edmond Gomez On 12/19/2020 10:15:28 AM
== END ==
LOC: M RAD 08:27
PROVIDERS: ATTEND Thoracic Surgery (Cardiothoracic Vascular Surgery)
DX: I71.2 Thoracic aortic aneurysm, without rupture (principal)

== ENCOUNTER → 2021-03-09 | Outpatient (REF) | payer MEDICARE ==
[~2021-03-09] MED LIST changes: +OMEP40CA4 PO; -OMEP40CA97 PO
[2021-03-09 13:26] LABS: BASO % 0.3 % (0.0-1.0); EOS # 0.1 10^3/uL (0.0-0.5); EOS % 1.1 % (0.0-3.0); HEMATOCRIT 36.2 % (42.0-52.0); HEMOGLOBIN 10.9 g/dl (13.5-17.5); LYMPH # 0.6 10^3/uL (1.5-5.0); LYMPH % 9.5 % (24.0-44.0); MEAN CORPUSCULAR HEMOGLOBIN 24.8 pg (27.0-33.0); MEAN CORPUSCULAR HGB CONC 30.1 g/dl (32.0-36.5); MEAN CORPUSCULAR VOLUME 82.3 fl (80.0-96.0); MONO # 0.6 10^3/uL (0.0-0.8); MONO % 9.2 % (2.0-8.0); NEUTROPHILS # 5.2 10^3/uL (1.5-8.5); NEUTROPHILS % 79.6 % (36.0-66.0); PLATELET COUNT, AUTOMATED 196 10^3/uL (150-450); WHITE BLOOD COUNT 6.5 10^3/uL (4.0-10.0)
[2021-03-09 13:50] LABS: ALBUMIN 3.6 GM/DL (3.2-5.2); BILIRUBIN,TOTAL 0.3 MG/DL (0.2-1.0); CALCIUM LEVEL 8.7 MG/DL (8.8-10.2); CREATININE FOR GFR 1.27 MG/DL (0.70-1.30); GLOMERULAR FILTRATION RATE 58.5 (>42); POTASSIUM SERUM 4.9 MEQ/L (3.5-5.1); TOTAL PROTEIN 6.7 GM/DL (6.4-8.2)
== END ==
LOC: M LABDRWAD 12:44
PROVIDERS: ATTEND Internal Medicine Cardiovascular Disease
DX: I35.9 Nonrheumatic aortic valve disorder, unspecified (principal); I11.0 Hypertensive heart disease with heart failure; I25.10 Atherosclerotic heart disease of native coronary artery without angina pectoris; I50.32 Chronic diastolic (congestive) heart failure

== ENCOUNTER → 2021-03-23 | Outpatient (REF) | payer MEDICARE ==
[2021-03-23 13:15] LABS: INR 3.03; PROTHROMBIN TIME 31.7 SECONDS (12.7-14.5)
== END ==
LOC: M SFHCADAM 11:33
PROVIDERS: ATTEND Physician Assistant Medical
DX: Z79.01 Long term (current) use of anticoagulants (principal)

== ENCOUNTER → 2021-04-13 | Outpatient (REF) | payer MEDICARE ==
[~2021-04-13] MED LIST changes: -AMIO200T3 PO; +AMIO200T49 PO; +COLA100C5 PO; +HYDR-3713 PO; -KLOR10TA76 PO; +POTA-136 PO; +SENN-80 PO
[2021-04-13 12:12] LABS: INR 2.87; PROTHROMBIN TIME 30.4 SECONDS (12.7-14.5)
== END ==
LOC: M SFHCADAM 08:40
PROVIDERS: ATTEND Physician Assistant Medical
DX: Z79.01 Long term (current) use of anticoagulants (principal)

== ENCOUNTER → 2021-06-03 | Outpatient (CLI) | payer MEDICARE ==
[~2021-06-03] MED LIST changes: +AMIO200T3 PO; -AMIO200T49 PO; -COLA100C5 PO; -HYDR-3713 PO; -SENN-80 PO
== END ==
LOC: M LABSMTC 11:23
PROVIDERS: ATTEND Pediatrics
DX: Z11.52 Encounter for screening for COVID-19 (principal)
CPT/HCPCS: C9803; U0003

== ENCOUNTER → 2021-06-16 | Outpatient (REF) | payer MEDICARE ==
[2021-06-16 13:47] LABS: BASO % 0.4 % (0.0-1.0); EOS # 0.1 10^3/uL (0.0-0.5); EOS % 1.7 % (0.0-3.0); HEMATOCRIT 38.3 % (42.0-52.0); HEMOGLOBIN 11.3 g/dl (13.5-17.5); LYMPH # 0.7 10^3/uL (1.5-5.0); LYMPH % 12.1 % (24.0-44.0); MEAN CORPUSCULAR HEMOGLOBIN 24.8 pg (27.0-33.0); MEAN CORPUSCULAR HGB CONC 29.5 g/dl (32.0-36.5); MEAN CORPUSCULAR VOLUME 84.2 fl (80.0-96.0); MONO # 0.7 10^3/uL (0.0-0.8); MONO % 12.5 % (2.0-8.0); NEUTROPHILS # 3.9 10^3/uL (1.5-8.5); NEUTROPHILS % 72.9 % (36.0-66.0); PLATELET COUNT, AUTOMATED 234 10^3/uL (150-450); RED BLOOD COUNT 4.55 10^6/uL (4.30-6.10); WHITE BLOOD COUNT 5.4 10^3/uL (4.0-10.0)
[2021-06-16 14:12] LABS: ALBUMIN 3.3 GM/DL (3.2-5.2); BLOOD UREA NITROGEN 16 MG/DL (7-18); CALCIUM LEVEL 8.9 MG/DL (8.8-10.2); CARBON DIOXIDE LEVEL 27 MEQ/L (21-32); CHLORIDE LEVEL 108 MEQ/L (98-107); CREATININE FOR GFR 1.22 MG/DL (0.70-1.30); GLOMERULAR FILTRATION RATE > 60.0 (>42); GLUCOSE, FASTING 85 MG/DL (70-100); NT-PRO BNP 262 PG/ML (<450); PHOSPHORUS LEVEL 2.4 MG/DL (2.5-4.9); POTASSIUM SERUM 4.6 MEQ/L (3.5-5.1); SODIUM LEVEL 142 MEQ/L (136-145)
== END ==
LOC: M LABDRWAD 12:45
PROVIDERS: ATTEND Internal Medicine Cardiovascular Disease
DX: I50.32 Chronic diastolic (congestive) heart failure (principal); I35.9 Nonrheumatic aortic valve disorder, unspecified; I48.0 Paroxysmal atrial fibrillation

== ENCOUNTER → 2021-06-29 | Outpatient (REF) | payer MEDICARE | LOC: M SFHCADAM 09:39 | PROVIDERS: ATTEND Physician Assistant Medical | DX: Z79.01 Long term (current) use of anticoagulants (principal) ==

== ENCOUNTER 2021-07-31 16:21 | Emergency (ER) | payer MEDICARE ==
[~2021-07-31] VITALS: Ht 177.8 cm; Wt 90.9 kg
[~2021-07-31 16:21] MED LIST changes: -AMIO200T3 PO; +AMIO200T49 PO
[2021-07-31] MEDS ORDERED: ISOVUE-370 76% 100ML VIAL As Ordered ONE (18:20)
[2021-07-31 18:24] LABS: BASO % 0.3 % (0.0-1.0); EOS # 0.3 10^3/uL (0.0-0.5); EOS % 3.1 % (0.0-3.0); HEMATOCRIT 34.8 % (42.0-52.0); HEMOGLOBIN 10.5 g/dl (13.5-17.5); LYMPH # 0.8 10^3/uL (1.5-5.0); LYMPH % 8.3 % (24.0-44.0); MEAN CORPUSCULAR HEMOGLOBIN 24.5 pg (27.0-33.0); MEAN CORPUSCULAR HGB CONC 30.2 g/dl (32.0-36.5); MEAN CORPUSCULAR VOLUME 81.3 fl (80.0-96.0); MONO # 1.2 10^3/uL (0.0-0.8); MONO % 13.1 % (2.0-8.0); NEUTROPHILS % 74.9 % (36.0-66.0); PLATELET COUNT, AUTOMATED 177 10^3/uL (150-450); RED BLOOD COUNT 4.28 10^6/uL (4.30-6.10); WHITE BLOOD COUNT 9.3 10^3/uL (4.0-10.0)
[2021-07-31 18:37] LABS: INR 2.36; PROTHROMBIN TIME 26.2 SECONDS (12.7-14.5)
[2021-07-31 18:39] LABS: PARTIAL THROMBOPLASTIN TIME 55.9 SECONDS (25.9-37.0)
[2021-07-31 18:56] LABS: ALBUMIN 3.4 GM/DL (3.2-5.2); BILIRUBIN,DIRECT 0.2 MG/DL (0.0-0.2); BILIRUBIN,TOTAL 0.6 MG/DL (0.2-1.0)
[2021-07-31 19:14] VITALS: BP 184/94
[2021-07-31] MEDS ORDERED: NORCO 5/325MG TABLET (BULK FOR ED) PO ONE (20:55)
[2021-07-31] MEDS ORDERED: HYDR-3713 PO (20:57)
== END 2021-07-31 21:30 | disposition home or self-care (01) ==
LOC: EDBD 16:21 → M ED 16:21
DX: S22.089A Unspecified fracture of T11-T12 vertebra, initial encounter for closed fracture (principal); S52.124A Nondisplaced fracture of head of right radius, initial encounter for closed fracture; X58.XXXA Exposure to other specified factors, initial encounter; Y92.009 Unspecified place in unspecified non-institutional (private) residence as the place of occurrence of the external cause; Y93.01 Activity, walking, marching and hiking; Y99.9 Unspecified external cause status; I25.2 Old myocardial infarction; K21.9 Gastro-esophageal reflux disease without esophagitis; M54.50 Low back pain, unspecified; Z86.73 Personal history of transient ischemic attack (TIA), and cerebral infarction without residual deficits; Z79.01 Long term (current) use of anticoagulants; Z79.899 Other long term (current) drug therapy
CPT/HCPCS: 29105; 70450; 71260; 72128; 73080; 73110; 73200; 80047; 80076; 85025; 85610; 85730; 93041; 94760; 99284; Q9967

== ENCOUNTER → 2021-08-12 | Outpatient (CLI) | payer MEDICARE ==
[~2021-08-12] MED LIST changes: +COLA100C5 PO; +HYDR-3713 PO; +SENN-80 PO
== END ==
LOC: M SOG 08-11 14:32
PROVIDERS: ATTEND Orthopaedic Surgery
DX: S52.121A Displaced fracture of head of right radius, initial encounter for closed fracture (principal); S22.000A Wedge compression fracture of unspecified thoracic vertebra, initial encounter for closed fracture; I51.7 Cardiomegaly; R91.8 Other nonspecific abnormal finding of lung field; X58.XXXA Exposure to other specified factors, initial encounter; Y92.9 Unspecified place or not applicable; Y99.9 Unspecified external cause status

== ENCOUNTER → 2021-08-21 | Outpatient (CLI) | payer MEDICARE | LOC: M SOG 09:37 | PROVIDERS: ATTEND Orthopaedic Surgery | DX: S52.121A Displaced fracture of head of right radius, initial encounter for closed fracture (principal); W18.30XA Fall on same level, unspecified, initial encounter; Y92.009 Unspecified place in unspecified non-institutional (private) residence as the place of occurrence of the external cause ==

== ENCOUNTER → 2021-08-28 | Outpatient (CLI) | payer MEDICARE | LOC: M ADAMS 11:58 | PROVIDERS: ATTEND Physician Assistant Medical | DX: R93.7 Abnormal findings on diagnostic imaging of other parts of musculoskeletal system (principal) ==

== ENCOUNTER → 2021-09-18 | Outpatient (CLI) | payer MEDICARE | LOC: M PLARAD 10:49 | PROVIDERS: ATTEND Orthopaedic Surgery | DX: S22.000A Wedge compression fracture of unspecified thoracic vertebra, initial encounter for closed fracture (principal); M54.50 Low back pain, unspecified; W18.30XA Fall on same level, unspecified, initial encounter; Y92.009 Unspecified place in unspecified non-institutional (private) residence as the place of occurrence of the external cause ==

== ENCOUNTER → 2021-09-22 | Outpatient (CLI) | payer MEDICARE | LOC: M SOG 09:05 | PROVIDERS: ATTEND Orthopaedic Surgery | DX: S52.121D Displaced fracture of head of right radius, subsequent encounter for closed fracture with routine healing (principal); W18.30XD Fall on same level, unspecified, subsequent encounter ==

== ENCOUNTER → 2021-12-03 | Outpatient (CLI) | payer MEDICARE ==
[2021-12-03 13:22] LABS: BASO % 0.4 % (0.0-1.0); EOS # 0.1 10^3/uL (0.0-0.5); HEMATOCRIT 35.8 % (42.0-52.0); HEMOGLOBIN 10.9 g/dl (13.5-17.5); LYMPH # 0.7 10^3/uL (1.5-5.0); LYMPH % 12.1 % (24.0-44.0); MEAN CORPUSCULAR HEMOGLOBIN 24.2 pg (27.0-33.0); MEAN CORPUSCULAR HGB CONC 30.4 g/dl (32.0-36.5); MEAN CORPUSCULAR VOLUME 79.6 fl (80.0-96.0); MONO # 0.7 10^3/uL (0.0-0.8); MONO % 12.6 % (2.0-8.0); NEUTROPHILS # 3.9 10^3/uL (1.5-8.5); NEUTROPHILS % 72.5 % (36.0-66.0); PLATELET COUNT, AUTOMATED 169 10^3/uL (150-450); WHITE BLOOD COUNT 5.4 10^3/uL (4.0-10.0)
[2021-12-03 13:48] LABS: ALBUMIN 3.4 GM/DL (3.2-5.2); BLOOD UREA NITROGEN 17 MG/DL (7-18); CALCIUM LEVEL 8.9 MG/DL (8.8-10.2); CARBON DIOXIDE LEVEL 29 MEQ/L (21-32); CHLORIDE LEVEL 108 MEQ/L (98-107); CREATININE FOR GFR 1.23 MG/DL (0.70-1.30); GLOMERULAR FILTRATION RATE > 60.0 (>42); GLUCOSE, FASTING 72 MG/DL (70-100); PHOSPHORUS LEVEL 2.4 MG/DL (2.5-4.9); POTASSIUM SERUM 4.2 MEQ/L (3.5-5.1); SODIUM LEVEL 141 MEQ/L (136-145)
== END ==
LOC: M ADAMS 10:31
PROVIDERS: ATTEND Internal Medicine Cardiovascular Disease
DX: I50.32 Chronic diastolic (congestive) heart failure (principal); I11.0 Hypertensive heart disease with heart failure; I48.0 Paroxysmal atrial fibrillation; I35.9 Nonrheumatic aortic valve disorder, unspecified

== ENCOUNTER → 2021-12-25 | Outpatient (CLI) | payer MEDICARE | LOC: M RAD 09:12 | PROVIDERS: ATTEND Nurse Practitioner | DX: I71.2 Thoracic aortic aneurysm, without rupture (principal); S22.089A Unspecified fracture of T11-T12 vertebra, initial encounter for closed fracture; X58.XXXA Exposure to other specified factors, initial encounter; R91.1 Solitary pulmonary nodule ==

== ENCOUNTER → 2022-01-08 | Outpatient (CLI) | payer MEDICARE ==
[2022-01-08 13:19] LABS: ALBUMIN 3.6 GM/DL (3.2-5.2); BILIRUBIN,TOTAL 0.5 MG/DL (0.2-1.0); CALCIUM LEVEL 9.1 MG/DL (8.8-10.2); CREATININE FOR GFR 1.4 MG/DL (0.70-1.30); GLOMERULAR FILTRATION RATE 52.2 (>42); POTASSIUM SERUM 4.2 MEQ/L (3.5-5.1); THYROID STIMULATING HORMONE 2.08 uIU/ML (0.358-3.740); TOTAL PROTEIN 7.4 GM/DL (6.4-8.2)
== END ==
LOC: M ADAMS 10:27
PROVIDERS: ATTEND Internal Medicine Cardiovascular Disease
DX: I50.32 Chronic diastolic (congestive) heart failure (principal); I48.0 Paroxysmal atrial fibrillation

== ENCOUNTER 2022-01-15 16:55 | Emergency (ER) | payer MEDICARE ==
[~2022-01-15] VITALS: Ht 172.7 cm; Wt 90.5 kg
[2022-01-15 17:12] VITALS: BP 138/79
== END 2022-01-15 21:35 | disposition left against medical advice (07) ==
LOC: M ED 16:55
DX: Z53.21 Procedure and treatment not carried out due to patient leaving prior to being seen by health care provider (principal)

== ENCOUNTER 2022-01-22 12:04 | Emergency (ER) | payer MEDICARE ==
[~2022-01-22] VITALS: Ht 172.7 cm; Wt 90.9 kg
[2022-01-22 14:26] LABS: BASO % 0.2 % (0.0-1.0); EOS # 0.1 10^3/uL (0.0-0.5); EOS % 1.3 % (0.0-3.0); HEMATOCRIT 33.1 % (42.0-52.0); HEMOGLOBIN 10.2 g/dl (13.5-17.5); LYMPH # 0.6 10^3/uL (1.5-5.0); LYMPH % 6.2 % (24.0-44.0); MEAN CORPUSCULAR HEMOGLOBIN 23.7 pg (27.0-33.0); MEAN CORPUSCULAR HGB CONC 30.8 g/dl (32.0-36.5); MONO # 0.9 10^3/uL (0.0-0.8); MONO % 9.3 % (2.0-8.0); NEUTROPHILS # 7.8 10^3/uL (1.5-8.5); NEUTROPHILS % 82.7 % (36.0-66.0); PLATELET COUNT, AUTOMATED 210 10^3/uL (150-450); WHITE BLOOD COUNT 9.4 10^3/uL (4.0-10.0)
[2022-01-22 14:36] LABS: INR 2.53; PROTHROMBIN TIME 27.6 SECONDS (12.7-14.5)
[2022-01-22 14:58] LABS: ALBUMIN 3.2 GM/DL (3.2-5.2); BILIRUBIN,DIRECT 0.2 MG/DL (0.0-0.2); BILIRUBIN,TOTAL 0.5 MG/DL (0.2-1.0); CALCIUM LEVEL 8.6 MG/DL (8.8-10.2); CK-MB VALUE MASS < 1.0 NG/ML (<3.6); CPK CREATINE PHOSPHOKINASE 100 U/L (39-308); CREATININE FOR GFR 1.4 MG/DL (0.70-1.30); GLOMERULAR FILTRATION RATE 52.2 (>42); POTASSIUM SERUM 4.3 MEQ/L (3.5-5.1); TOTAL PROTEIN 6.3 GM/DL (6.4-8.2)
[2022-01-22 15:45] VITALS: BP 128/60
== END 2022-01-22 16:00 | disposition home or self-care (01) ==
LOC: M ED 12:04
DX: J00 Acute nasopharyngitis [common cold] (principal); I48.91 Unspecified atrial fibrillation; I10 Essential (primary) hypertension; Z95.818 Presence of other cardiac implants and grafts; Z79.01 Long term (current) use of anticoagulants; Z79.899 Other long term (current) drug therapy

== ENCOUNTER → 2022-02-18 | Outpatient (REF) | payer MEDICARE ==
[2022-02-18 17:11] LABS: BASO % 0.3 % (0.0-1.0); EOS # 0.1 10^3/uL (0.0-0.5); EOS % 2.1 % (0.0-3.0); HEMATOCRIT 36.7 % (42.0-52.0); LYMPH # 0.7 10^3/uL (1.5-5.0); LYMPH % 10.7 % (24.0-44.0); MEAN CORPUSCULAR HEMOGLOBIN 23.9 pg (27.0-33.0); MEAN CORPUSCULAR VOLUME 79.6 fl (80.0-96.0); MONO # 0.7 10^3/uL (0.0-0.8); MONO % 11.8 % (2.0-8.0); NEUTROPHILS # 4.7 10^3/uL (1.5-8.5); NEUTROPHILS % 74.8 % (36.0-66.0); PLATELET COUNT, AUTOMATED 206 10^3/uL (150-450); RED BLOOD COUNT 4.61 10^6/uL (4.30-6.10); WHITE BLOOD COUNT 6.3 10^3/uL (4.0-10.0)
[2022-02-18 18:41] LABS: ALBUMIN 3.6 GM/DL (3.2-5.2); BILIRUBIN,TOTAL 0.4 MG/DL (0.2-1.0); CALCIUM LEVEL 8.7 MG/DL (8.8-10.2); CHOLESTEROL RISK RATIO 2.661 (<5); CREATININE FOR GFR 1.31 MG/DL (0.70-1.30); GLOMERULAR FILTRATION RATE 56.3 (>42); PERCENT SATURATION 8.3 % (19.7-50.0); POTASSIUM SERUM 4.2 MEQ/L (3.5-5.1); THYROID STIMULATING HORMONE 1.95 uIU/ML (0.358-3.740)
[2022-02-18 19:05] LABS: TOTAL 25(OH) VITAMIN D 9.5 NG/ML (30.0-100.0)
== END ==
LOC: M SFHCADAM 10:57
PROVIDERS: ATTEND Physician Assistant Medical
DX: N18.31 Chronic kidney disease, stage 3a (principal); I12.9 Hypertensive chronic kidney disease with stage 1 through stage 4 chronic kidney disease, or unspecified chronic kidney disease; D63.8 Anemia in other chronic diseases classified elsewhere

== ENCOUNTER → 2022-04-28 | Outpatient (REF) | payer MEDICARE ==
[2022-04-28 13:44] LABS: BASO % 0.4 % (0.0-1.0); EOS # 0.1 10^3/uL (0.0-0.5); EOS % 2.2 % (0.0-3.0); HEMATOCRIT 36.9 % (42.0-52.0); HEMOGLOBIN 10.9 g/dl (13.5-17.5); LYMPH # 0.6 10^3/uL (1.5-5.0); LYMPH % 10.2 % (24.0-44.0); MEAN CORPUSCULAR HEMOGLOBIN 23.9 pg (27.0-33.0); MEAN CORPUSCULAR HGB CONC 29.5 g/dl (32.0-36.5); MEAN CORPUSCULAR VOLUME 80.9 fl (80.0-96.0); MONO # 0.4 10^3/uL (0.0-0.8); MONO % 7.7 % (2.0-8.0); NEUTROPHILS # 4.3 10^3/uL (1.5-8.5); PLATELET COUNT, AUTOMATED 217 10^3/uL (150-450); RED BLOOD COUNT 4.56 10^6/uL (4.30-6.10); WHITE BLOOD COUNT 5.5 10^3/uL (4.0-10.0)
[2022-04-28 14:25] LABS: ALBUMIN 3.4 GM/DL (3.2-5.2); CALCIUM LEVEL 8.9 MG/DL (8.8-10.2); CREATININE FOR GFR 1.42 MG/DL (0.70-1.30); GLOMERULAR FILTRATION RATE 51.3 (>42); PHOSPHORUS LEVEL 3.1 MG/DL (2.5-4.9)
[2022-04-29 18:28] LABS: THYROID STIMULATING HORMONE 1.58 uIU/ML (0.358-3.740)
== END ==
LOC: M LABDRWAD 12:58
PROVIDERS: ATTEND Internal Medicine Cardiovascular Disease
DX: I11.0 Hypertensive heart disease with heart failure (principal); I48.0 Paroxysmal atrial fibrillation; I35.9 Nonrheumatic aortic valve disorder, unspecified; I50.32 Chronic diastolic (congestive) heart failure

== ENCOUNTER → 2022-05-05 | Outpatient (CLI) | payer MEDICARE ==
[2022-05-05 15:20] LABS: ALBUMIN 3.6 GM/DL (3.2-5.2); CALCIUM LEVEL 9.4 MG/DL (8.8-10.2); CREATININE FOR GFR 2.18 MG/DL (0.70-1.30); GLOMERULAR FILTRATION RATE 31.3 (>42); MAGNESIUM LEVEL 2.7 MG/DL (1.8-2.4); PHOSPHORUS LEVEL 3.4 MG/DL (2.5-4.9); POTASSIUM SERUM 3.1 MEQ/L (3.5-5.1)
== END ==
LOC: M LABDRWAD 09:10
PROVIDERS: ATTEND Physician Assistant Medical
DX: I50.33 Acute on chronic diastolic (congestive) heart failure (principal)

== ENCOUNTER → 2022-05-10 | Outpatient (CLI) | payer MEDICARE ==
[2022-05-10 12:11] LABS: ALBUMIN 3.3 GM/DL (3.2-5.2); CALCIUM LEVEL 8.5 MG/DL (8.8-10.2); CREATININE FOR GFR 1.41 MG/DL (0.70-1.30); GLOMERULAR FILTRATION RATE 51.8 (>42); PHOSPHORUS LEVEL 2.7 MG/DL (2.5-4.9); POTASSIUM SERUM 4.8 MEQ/L (3.5-5.1)
== END ==
LOC: M LAB 10:57
PROVIDERS: ATTEND Internal Medicine Cardiovascular Disease
DX: I50.32 Chronic diastolic (congestive) heart failure (principal)

== ENCOUNTER → 2022-06-15 | Outpatient (REF) | payer MEDICARE ==
[2022-06-15 13:39] LABS: INR 2.85; PROTHROMBIN TIME 30.3 SECONDS (12.5-14.5)
== END ==
LOC: M SFHCADAM 10:18
PROVIDERS: ATTEND Physician Assistant Medical
DX: Z95.2 Presence of prosthetic heart valve (principal)

== ENCOUNTER → 2022-06-23 | Outpatient (REF) | payer MEDICARE ==
[2022-06-23 16:34] LABS: ALBUMIN 3.3 G/DL (3.2-5.2); CALCIUM LEVEL 9.1 MG/DL (8.3-10.6); CREATININE FOR GFR 1.35 MG/DL (0.70-1.30); GLOMERULAR FILTRATION RATE 54.3 (>42); POTASSIUM SERUM 3.7 MMOL/L (3.5-5.1)
== END ==
LOC: M LABDRWAD 12:56
PROVIDERS: ATTEND Internal Medicine Cardiovascular Disease
DX: I11.0 Hypertensive heart disease with heart failure (principal); I50.33 Acute on chronic diastolic (congestive) heart failure

== ENCOUNTER → 2022-09-02 | Outpatient (REF) | payer MEDICARE ==
[2022-09-02 11:27] LABS: INR 2.81
== END ==
LOC: M SHH 10:27
PROVIDERS: ATTEND Physician Assistant Medical
DX: Z79.01 Long term (current) use of anticoagulants (principal); Z95.2 Presence of prosthetic heart valve

== ENCOUNTER → 2022-09-23 | Outpatient (REF) | payer MEDICARE ==
[2022-09-23 13:17] LABS: INR 2.42; PROTHROMBIN TIME 26.7 SECONDS (12.5-14.5)
== END ==
LOC: M SHH 11:38
PROVIDERS: ATTEND Physician Assistant Medical
DX: Z79.01 Long term (current) use of anticoagulants (principal); Z95.2 Presence of prosthetic heart valve

== ENCOUNTER → 2022-10-04 | Outpatient (REF) | payer MEDICARE ==
[2022-10-04 15:30] LABS: BASO % 0.3 % (0.0-1.0); EOS # 0.2 10^3/uL (0.0-0.5); HEMATOCRIT 35.7 % (42.0-52.0); HEMOGLOBIN 10.6 g/dl (13.5-17.5); LYMPH # 0.7 10^3/uL (1.5-5.0); LYMPH % 11.7 % (24.0-44.0); MEAN CORPUSCULAR HEMOGLOBIN 23.8 pg (27.0-33.0); MEAN CORPUSCULAR HGB CONC 29.7 g/dl (32.0-36.5); MONO # 0.7 10^3/uL (0.0-0.8); MONO % 11.7 % (2.0-8.0); NEUTROPHILS # 4.4 10^3/uL (1.5-8.5); NEUTROPHILS % 73.1 % (36.0-66.0); PLATELET COUNT, AUTOMATED 230 10^3/uL (150-450); RED BLOOD COUNT 4.46 10^6/uL (4.30-6.10)
[2022-10-04 15:51] LABS: ALBUMIN 3.5 G/DL (3.2-5.2); CALCIUM LEVEL 8.6 MG/DL (8.3-10.6); CREATININE FOR GFR 1.44 MG/DL (0.70-1.30); GLOMERULAR FILTRATION RATE 50.4 (>42); PHOSPHORUS LEVEL 3.2 MG/DL (2.4-5.1); POTASSIUM SERUM 4.1 MMOL/L (3.5-5.1)
== END ==
LOC: M LABDRWAD 14:41
PROVIDERS: ATTEND Internal Medicine Cardiovascular Disease
DX: I50.32 Chronic diastolic (congestive) heart failure (principal); I48.0 Paroxysmal atrial fibrillation; I11.0 Hypertensive heart disease with heart failure; I35.9 Nonrheumatic aortic valve disorder, unspecified

== ENCOUNTER → 2022-10-04 | Outpatient (REF) | payer MEDICARE ==
[2022-10-04 15:53] LABS: FERRITIN 13.4 NG/ML (10.5-307.3); PERCENT SATURATION 6.6 % (19.7-50.0)
[2022-10-04 15:54] LABS: ALBUMIN 3.4 G/DL (3.2-5.2); BILIRUBIN,TOTAL 0.3 MG/DL (0.3-1.2); CALCIUM LEVEL 8.7 MG/DL (8.3-10.6); CREATININE FOR GFR 1.41 MG/DL (0.70-1.30); FOLATE 10.6 NG/ML (>5.4); GLOMERULAR FILTRATION RATE 51.6 (>42); POTASSIUM SERUM 4.1 MMOL/L (3.5-5.1); THYROID STIMULATING HORMONE 2.591 uIU/ML (0.55-4.78); TOTAL 25(OH) VITAMIN D 26.5 NG/ML (20.0-100.0)
[2022-10-04 15:55] LABS: HEMOGLOBIN A1c 5.6 % (4.0-6.0)
== END ==
LOC: M SFHCADAM 10:50
PROVIDERS: ATTEND Physician Assistant Medical
DX: K59.01 Slow transit constipation (principal); I12.9 Hypertensive chronic kidney disease with stage 1 through stage 4 chronic kidney disease, or unspecified chronic kidney disease; N18.31 Chronic kidney disease, stage 3a; E55.9 Vitamin D deficiency, unspecified; D63.8 Anemia in other chronic diseases classified elsewhere; E61.1 Iron deficiency; Z79.01 Long term (current) use of anticoagulants; Z79.899 Other long term (current) drug therapy

== ENCOUNTER 2022-10-05 10:53 | Emergency (ER) | payer MEDICARE ==
[~2022-10-05] VITALS: Ht 172.7 cm; Wt 93.6 kg
[2022-10-05 14:08] VITALS: BP 140/60
== END 2022-10-05 14:44 | disposition home or self-care (01) ==
LOC: M ED 10:53 → EDBD 10:53 → M ED 14:44
DX: S70.01XA Contusion of right hip, initial encounter (principal); W05.0XXA Fall from non-moving wheelchair, initial encounter; Y92.009 Unspecified place in unspecified non-institutional (private) residence as the place of occurrence of the external cause; Y93.89 Activity, other specified; Y99.8 Other external cause status; I10 Essential (primary) hypertension; N18.30 Chronic kidney disease, stage 3 unspecified; Z86.73 Personal history of transient ischemic attack (TIA), and cerebral infarction without residual deficits; Z79.01 Long term (current) use of anticoagulants; Z79.899 Other long term (current) drug therapy

== ENCOUNTER → 2022-11-02 | Outpatient (REF) | payer MEDICARE ==
[~2022-11-02] MED LIST changes: +SENN-186 PO; -SENN-80 PO
[2022-11-02 16:31] LABS: INR 2.44; PROTHROMBIN TIME 26.9 SECONDS (12.5-14.5)
== END ==
LOC: M SHH 15:54
PROVIDERS: ATTEND Physician Assistant Medical
DX: Z79.01 Long term (current) use of anticoagulants (principal); Z95.2 Presence of prosthetic heart valve

== ENCOUNTER → 2022-11-18 | Outpatient (REF) | payer MEDICARE ==
[2022-11-18 18:40] LABS: INR 2.11
== END ==
LOC: M SHH 18:19
PROVIDERS: ATTEND Physician Assistant Medical
DX: Z79.01 Long term (current) use of anticoagulants (principal); Z95.2 Presence of prosthetic heart valve

== ENCOUNTER → 2023-01-11 | Outpatient (CLI) | payer MEDICARE ==
[~2023-01-11] MED LIST changes: -DILT1CAP5 PO; +DILT240C41 PO; -K-TA10TA2 PO; +POTA-165 PO
[2023-01-11 13:50] LABS: BASO % 0.2 % (0.0-1.0); EOS # 0.1 10^3/uL (0.0-0.5); EOS % 1.4 % (0.0-3.0); HEMATOCRIT 35.4 % (42.0-52.0); HEMOGLOBIN 10.9 g/dl (13.5-17.5); LYMPH # 0.9 10^3/uL (1.5-5.0); LYMPH % 8.9 % (24.0-44.0); MEAN CORPUSCULAR HEMOGLOBIN 23.3 pg (27.0-33.0); MEAN CORPUSCULAR HGB CONC 30.8 g/dl (32.0-36.5); MEAN CORPUSCULAR VOLUME 75.6 fl (80.0-96.0); MONO % 9.9 % (2.0-8.0); NEUTROPHILS # 7.7 10^3/uL (1.5-8.5); NEUTROPHILS % 79.2 % (36.0-66.0); PLATELET COUNT, AUTOMATED 186 10^3/uL (150-450); RED BLOOD COUNT 4.68 10^6/uL (4.30-6.10); WHITE BLOOD COUNT 9.8 10^3/uL (4.0-10.0)
[2023-01-11 14:34] LABS: ERYTHROCYTE SEDIMENTATION RATE 36 mm/hr (0-20)
[2023-01-11 21:01] LABS: HIV 1&2 SCREEN NEGATIVE (NEGATIVE)
[2023-01-11 21:07] LABS: HEPATITIS C VIRUS ABY INDEX 0.09 INDEX (<0.8)
[2023-01-11 21:39] LABS: HEPATITIS B SURFACE ANTIGEN NEGATIVE (NEGATIVE)
[2023-01-11 22:00] LABS: HEPATITIS B CORE ANTIBODY IGM NEGATIVE (NEGATIVE)
[2023-01-11 22:02] LABS: ALBUMIN 3.5 G/DL (3.2-5.2); ALKALINE PHOSPHATASE 92 U/L (46-116); ALT/SGPT 14 U/L (7.0-40); AST/SGOT < 8 U/L (<34); BILIRUBIN,TOTAL 0.6 MG/DL (0.3-1.2); BLOOD UREA NITROGEN 31 MG/DL (9-23); CALCIUM LEVEL 8.5 MG/DL (8.3-10.6); CARBON DIOXIDE LEVEL 36 MMOL/L (20-31); CHLORIDE LEVEL 92 MMOL/L (98-107); CREATININE FOR GFR 1.61 MG/DL (0.70-1.30); GLOMERULAR FILTRATION RATE 44.3 (>42); GLUCOSE, FASTING 86 MG/DL (74-106); PHOSPHORUS LEVEL 4.3 MG/DL (2.4-5.1); POTASSIUM SERUM 3.9 MMOL/L (3.5-5.1); SODIUM LEVEL 135 MMOL/L (136-145); TOTAL PROTEIN 6.6 G/DL (5.7-8.2)
== END ==
LOC: M LABDRWAD 10:45
PROVIDERS: ATTEND Nurse Practitioner Family
DX: I50.32 Chronic diastolic (congestive) heart failure (principal); I48.0 Paroxysmal atrial fibrillation; I35.9 Nonrheumatic aortic valve disorder, unspecified; I11.0 Hypertensive heart disease with heart failure; R21 Rash and other nonspecific skin eruption

== ENCOUNTER → 2023-05-02 | Outpatient (REF) | payer MEDICARE ==
[2023-05-02 13:11] LABS: BASO % 0.4 % (0.0-1.0); EOS # 0.1 10^3/uL (0.0-0.5); EOS % 1.8 % (0.0-3.0); HEMATOCRIT 34.3 % (42.0-52.0); HEMOGLOBIN 10.6 g/dl (13.5-17.5); LYMPH # 0.7 10^3/uL (1.5-5.0); LYMPH % 12.9 % (24.0-44.0); MEAN CORPUSCULAR HEMOGLOBIN 24.5 pg (27.0-33.0); MEAN CORPUSCULAR HGB CONC 30.9 g/dl (32.0-36.5); MEAN CORPUSCULAR VOLUME 79.2 fl (80.0-96.0); MONO # 0.6 10^3/uL (0.0-0.8); MONO % 11.1 % (2.0-8.0); NEUTROPHILS # 4.1 10^3/uL (1.5-8.5); NEUTROPHILS % 73.6 % (36.0-66.0); PLATELET COUNT, AUTOMATED 256 10^3/uL (150-450); RED BLOOD COUNT 4.33 10^6/uL (4.30-6.10); WHITE BLOOD COUNT 5.6 10^3/uL (4.0-10.0)
[2023-05-02 13:32] LABS: HEMOGLOBIN A1c 5.3 % (4.0-6.0)
[2023-05-02 13:44] LABS: FERRITIN 15.4 NG/ML (10.5-307.3); FREE T4 1.58 NG/DL (0.89-1.76)
[2023-05-02 13:45] LABS: THYROID STIMULATING HORMONE 3.398 uIU/ML (0.55-4.78)
[2023-05-02 13:46] LABS: TOTAL 25(OH) VITAMIN D 16.1 NG/ML (20.0-100.0)
[2023-05-02 13:47] LABS: FOLATE 15.9 NG/ML (>5.4)
[2023-05-02 13:49] LABS: PERCENT SATURATION 7.3 % (19.7-50.0)
[2023-05-02 14:03] LABS: ALBUMIN 3.6 G/DL (3.2-5.2); BILIRUBIN,TOTAL 0.4 MG/DL (0.3-1.2); CHOLESTEROL RISK RATIO 2.97 (<5); CREATININE FOR GFR 1.58 MG/DL (0.70-1.30); GLOMERULAR FILTRATION RATE 45.3 (>42); HDL CHOLESTEROL 60.1 MG/DL (>40); LDL CHOLESTEROL 75.9 MG/DL (<100); MAGNESIUM LEVEL 2.3 MG/DL (1.8-2.4); NON-HDL-C 118.9 MG/DL; POTASSIUM SERUM 3.5 MMOL/L (3.5-5.1); TOTAL PROTEIN 6.9 G/DL (5.7-8.2)
== END ==
LOC: M SFHCADAM 11:02
PROVIDERS: ATTEND Physician Assistant
DX: Z79.01 Long term (current) use of anticoagulants (principal); I11.0 Hypertensive heart disease with heart failure; I25.10 Atherosclerotic heart disease of native coronary artery without angina pectoris; Z95.2 Presence of prosthetic heart valve; I63.49 Cerebral infarction due to embolism of other cerebral artery; R29.6 Repeated falls; N18.31 Chronic kidney disease, stage 3a; E55.9 Vitamin D deficiency, unspecified; I50.32 Chronic diastolic (congestive) heart failure; I48.0 Paroxysmal atrial fibrillation; I35.9 Nonrheumatic aortic valve disorder, unspecified; Z79.899 Other long term (current) drug therapy

== ENCOUNTER → 2023-05-02 | Outpatient (CLI) | payer MEDICARE ==
[2023-05-02 13:12] LABS: BASO % 0.5 % (0.0-1.0); EOS # 0.1 10^3/uL (0.0-0.5); HEMATOCRIT 34.6 % (42.0-52.0); HEMOGLOBIN 10.6 g/dl (13.5-17.5); LYMPH # 0.7 10^3/uL (1.5-5.0); LYMPH % 12.3 % (24.0-44.0); MEAN CORPUSCULAR HEMOGLOBIN 24.4 pg (27.0-33.0); MEAN CORPUSCULAR HGB CONC 30.6 g/dl (32.0-36.5); MEAN CORPUSCULAR VOLUME 79.5 fl (80.0-96.0); MONO # 0.6 10^3/uL (0.0-0.8); MONO % 11.4 % (2.0-8.0); NEUTROPHILS # 4.1 10^3/uL (1.5-8.5); NEUTROPHILS % 73.6 % (36.0-66.0); PLATELET COUNT, AUTOMATED 260 10^3/uL (150-450); RED BLOOD COUNT 4.35 10^6/uL (4.30-6.10); WHITE BLOOD COUNT 5.6 10^3/uL (4.0-10.0)
[2023-05-02 13:31] LABS: ERYTHROCYTE SEDIMENTATION RATE 49 mm/hr (0-20)
[2023-05-02 14:02] LABS: ALBUMIN 3.6 G/DL (3.2-5.2); BILIRUBIN,TOTAL 0.4 MG/DL (0.3-1.2); CALCIUM LEVEL 9.1 MG/DL (8.3-10.6); CREATININE FOR GFR 1.6 MG/DL (0.70-1.30); GLOMERULAR FILTRATION RATE 44.6 (>42); POTASSIUM SERUM 3.5 MMOL/L (3.5-5.1)
== END ==
LOC: M LABDRWAD 11:17
PROVIDERS: ATTEND Internal Medicine Cardiovascular Disease
DX: I50.32 Chronic diastolic (congestive) heart failure (principal); I48.0 Paroxysmal atrial fibrillation; I35.9 Nonrheumatic aortic valve disorder, unspecified; I11.0 Hypertensive heart disease with heart failure; I25.10 Atherosclerotic heart disease of native coronary artery without angina pectoris

== ENCOUNTER 2023-07-27 03:18 | Inpatient (IN) | payer MEDICARE ==
[~2023-07-27] VITALS: Ht 177.8 cm; Wt 98.6 kg
[2023-07-27 04:17] LABS: BASO % 0.2 % (0.0-1.0); EOS # 0.1 10^3/uL (0.0-0.5); HEMATOCRIT 30.4 % (42.0-52.0); HEMOGLOBIN 9.4 g/dl (13.5-17.5); LYMPH # 1.1 10^3/uL (1.5-5.0); LYMPH % 8.3 % (24.0-44.0); MEAN CORPUSCULAR HEMOGLOBIN 23.3 pg (27.0-33.0); MEAN CORPUSCULAR HGB CONC 30.9 g/dl (32.0-36.5); MEAN CORPUSCULAR VOLUME 75.4 fl (80.0-96.0); MONO # 1.3 10^3/uL (0.0-0.8); MONO % 9.9 % (2.0-8.0); NEUTROPHILS # 10.6 10^3/uL (1.5-8.5); NEUTROPHILS % 80.3 % (36.0-66.0); PLATELET COUNT, AUTOMATED 219 10^3/uL (150-450); RED BLOOD COUNT 4.03 10^6/uL (4.30-6.10); WHITE BLOOD COUNT 13.1 10^3/uL (4.0-10.0)
[2023-07-27 04:23] LABS: INR 2.63; PARTIAL THROMBOPLASTIN TIME 49.7 SECONDS (24.8-34.2); PROTHROMBIN TIME 27.1 SECONDS (12.5-14.5)
[2023-07-27 04:24] LABS: BLOOD UREA NITROGEN 32 MG/DL (9-23); CALCIUM LEVEL 8.2 MG/DL (8.3-10.6); CARBON DIOXIDE LEVEL 29 MMOL/L (20-31); CHLORIDE LEVEL 102 MMOL/L (98-107); GLOMERULAR FILTRATION RATE 34.4 (>35); GLUCOSE, FASTING 110 MG/DL (74-106); POTASSIUM SERUM 3.9 MMOL/L (3.5-5.1); SODIUM LEVEL 137 MMOL/L (136-145)
[2023-07-27 04:48] LABS: LIPASE 33 U/L (12-53)
[2023-07-27 04:49] LABS: CK-MB VALUE MASS < 1.0 NG/ML (<3.6)
[2023-07-27 04:50] LABS: ALBUMIN 3.2 G/DL (3.2-5.2); ALKALINE PHOSPHATASE 87 U/L (46-116); ALT/SGPT 14 U/L (7.0-40); AST/SGOT 17 U/L (<34); BILIRUBIN,DIRECT 0.2 MG/DL (<0.4); BILIRUBIN,TOTAL 0.6 MG/DL (0.3-1.2); CPK CREATINE PHOSPHOKINASE 203 U/L (46-171); MB/CK RELATIVE INDEX 0.49 (< OR =4); TOTAL PROTEIN 6.5 G/DL (5.7-8.2)
[2023-07-27] MEDS ORDERED: LEVOTAB10 PO (05:12)
[2023-07-27] MEDS ORDERED: HYDR-3910 PO (05:12)
[2023-07-27] MEDS ORDERED: METO25TA PO (05:16)
[2023-07-27] MEDS ORDERED: NS 1,000 ML IV ONE (05:20)
[2023-07-27] MEDS ORDERED: MED REC IN PROGRESS XX SCH (08:10)
[2023-07-27] MEDS ORDERED: CARV25TA PO (08:55)
[2023-07-27] MEDS ORDERED: TORS20TA2 PO (08:55)
[2023-07-27] MEDS ORDERED: POTA1TAB23 PO (08:55)
[2023-07-27] MEDS ORDERED: MOM 30ML SUSPENSION UDC PO PRN (09:40)
[2023-07-27] MEDS ORDERED: LR 1,000 ML IV SCH (09:40)
[2023-07-27] MEDS ORDERED: methylPREDNISolone 125MG 2ML VIAL IV ONE (09:40)
[2023-07-27] MEDS ORDERED: ACETAMINOPHEN TAB 650MG DOSE (2X325MG) PO PRN (09:40)
[2023-07-27 10:32] LABS: PROCALCITONIN 0.19 ng/ml
[2023-07-27 10:45] LABS: INR 2.55; PROTHROMBIN TIME 26.5 SECONDS (12.5-14.5)
[2023-07-27 11:28] LABS: CHOLESTEROL LEVEL 152 MG/DL (<200); CHOLESTEROL RISK RATIO 2.55 (<5); HDL CHOLESTEROL 59.5 MG/DL (>40); LDL CHOLESTEROL 69.5 MG/DL (<100); NON-HDL-C 92.5 MG/DL; TRIGLYCERIDES LEVEL 115 MG/DL (<150)
[2023-07-27 11:43] LABS: HEMOGLOBIN A1c 5.7 % (4.0-6.0)
[2023-07-27] MEDS ORDERED: HOME MED LIST COMPLETE! XX SCH (12:30)
[2023-07-27] MEDS ORDERED: DOCUSATE SODIUM 100MG CAPSULE PO PRN (15:00)
[2023-07-27] MEDS: methylPREDNISolone 40MG 1ML VIAL IV SCH ×2 (15:00→23:08)
[2023-07-27] MEDS: IPRATROPIUM 0.5MG/ALBUTEROL 2.5MG INH SOL UD 3ML (DUONEB) NEB SCH ×3 (15:05→20:12)
[2023-07-27 15:57] LABS: CALCIUM LEVEL 8.3 MG/DL (8.3-10.6); CREATININE FOR GFR 1.66 MG/DL (0.70-1.30); GLOMERULAR FILTRATION RATE 42.6 (>35)
[2023-07-27 16:55] VITALS: BP 142/68; TEMP 98; O2SAT 92
[2023-07-27 20:22] VITALS: BP 147/77; TEMP 97.8; O2SAT 98
[2023-07-27] MEDS: TAMSULOSIN 0.4 MG CAP PO SCH (21:47)
[2023-07-27] MEDS: CETIRIZINE (ZyrTEC) 10 MG TAB PO SCH (21:47)
[2023-07-27] MEDS: DULoxetine 30MG CAPSULE (CYMBALTA) PO SCH (21:47)
[2023-07-27] MEDS: ATORVASTATIN 20 MG TAB PO SCH (21:47)
[2023-07-27] MEDS: DOCUSATE SODIUM 100MG CAPSULE PO SCH (21:48)
[2023-07-28] VITALS (7 sets, daily range): BP systolic 118–160; BP diastolic 61–73; TEMP 96.7–98.7; O2SAT 93–98
[2023-07-28 05:38] LABS: HEMATOCRIT 28.6 % (42.0-52.0); HEMOGLOBIN 8.7 g/dl (13.5-17.5); MEAN CORPUSCULAR HGB CONC 30.4 g/dl (32.0-36.5); MEAN CORPUSCULAR VOLUME 75.5 fl (80.0-96.0); PLATELET COUNT, AUTOMATED 206 10^3/uL (150-450); RED BLOOD COUNT 3.79 10^6/uL (4.30-6.10); WHITE BLOOD COUNT 6.1 10^3/uL (4.0-10.0)
[2023-07-28 05:49] LABS: INR 1.96; PROTHROMBIN TIME 21.7 SECONDS (12.5-14.5)
[2023-07-28 06:08] LABS: CALCIUM LEVEL 8.3 MG/DL (8.3-10.6); CREATININE FOR GFR 1.36 MG/DL (0.70-1.30); GLOMERULAR FILTRATION RATE 53.7 (>35); POTASSIUM SERUM 4.2 MMOL/L (3.5-5.1)
[2023-07-28] MEDS: methylPREDNISolone 40MG 1ML VIAL IV SCH (06:57)
[2023-07-28 07:32] LABS: PERCENT SATURATION 3.9 % (19.7-50.0)
[2023-07-28 07:34] LABS: FERRITIN 64.4 NG/ML (10.5-307.3); FOLATE 13.7 NG/ML (>5.4)
[2023-07-28] MEDS: IPRATROPIUM 0.5MG/ALBUTEROL 2.5MG INH SOL UD 3ML (DUONEB) NEB SCH ×4 (07:35→19:56)
[2023-07-28 07:38] LABS: ALBUMIN 2.7 G/DL (3.2-5.2); BILIRUBIN,DIRECT 0.1 MG/DL (<0.4); BILIRUBIN,TOTAL 0.3 MG/DL (0.3-1.2); TOTAL PROTEIN 5.9 G/DL (5.7-8.2)
[2023-07-28] MEDS ORDERED: WARFARIN SOD 2.5MG TAB PO SCH ×2 (09:00→17:00)
[2023-07-28] MEDS: AMIODARONE 200 MG TAB (PACERONE) PO SCH (09:05)
[2023-07-28] MEDS: ISOSORBIDE MON. (IMDUR) 30MG XR TAB PO SCH (09:05)
[2023-07-28] MEDS: OMEPRAZOLE 20MG CAP PO SCH (09:05)
[2023-07-28] MEDS: DOCUSATE SODIUM 100MG CAPSULE PO SCH ×2 (09:05→21:47)
[2023-07-28] MEDS: predniSONE 20 MG TAB PO SCH (09:49)
[2023-07-28] MEDS ORDERED: metOLazone 2.5 MG TAB PO SCH (12:05)
[2023-07-28] MEDS: PANTOPRAZOLE 40MG TAB (PROTONIX) PO SCH (12:25)
[2023-07-28] MEDS: **hydrALAZINE HCL** 25 MG TAB PO SCH ×2 (17:05→21:50)
[2023-07-28] MEDS ORDERED: TORSEMIDE 20 MG TAB PO SCH (21:00)
[2023-07-28] MEDS: DULoxetine 30MG CAPSULE (CYMBALTA) PO SCH (21:47)
[2023-07-28] MEDS: TAMSULOSIN 0.4 MG CAP PO SCH (21:47)
[2023-07-28] MEDS: CETIRIZINE (ZyrTEC) 10 MG TAB PO SCH (21:48)
[2023-07-28] MEDS: ATORVASTATIN 20 MG TAB PO SCH (21:48)
[2023-07-28] MEDS: CARVedilol 12.5 MG TAB PO SCH (21:50)
[2023-07-29 04:15] VITALS: BP 132/62; TEMP 98; O2SAT 95
[2023-07-29 06:00] LABS: HEMATOCRIT 26.1 % (42.0-52.0); MEAN CORPUSCULAR HEMOGLOBIN 22.9 pg (27.0-33.0); MEAN CORPUSCULAR HGB CONC 30.7 g/dl (32.0-36.5); MEAN CORPUSCULAR VOLUME 74.6 fl (80.0-96.0); PLATELET COUNT, AUTOMATED 225 10^3/uL (150-450); WHITE BLOOD COUNT 10.8 10^3/uL (4.0-10.0)
[2023-07-29 06:08] LABS: INR 2.03; PROTHROMBIN TIME 22.2 SECONDS (12.5-14.5)
[2023-07-29 06:20] LABS: CALCIUM LEVEL 8.5 MG/DL (8.3-10.6); CREATININE FOR GFR 1.45 MG/DL (0.70-1.30); GLOMERULAR FILTRATION RATE 49.9 (>35); POTASSIUM SERUM 4.2 MMOL/L (3.5-5.1)
[2023-07-29] MEDS: IPRATROPIUM 0.5MG/ALBUTEROL 2.5MG INH SOL UD 3ML (DUONEB) NEB SCH ×4 (07:15→20:16)
[2023-07-29 07:32] VITALS: BP 131/60; TEMP 98; O2SAT 95
[2023-07-29] MEDS ORDERED: WARFARIN SOD 5MG TAB PO SCH ×2 (09:00→17:00)
[2023-07-29] MEDS: DOCUSATE SODIUM 100MG CAPSULE PO SCH ×2 (09:00→22:19)
[2023-07-29] MEDS ORDERED: FERRIC CARBOXYMALTOSE INJ 750 MG, VIAL MATE ADAPTER 1 EACH in NS 250 ML IV ONE (09:00)
[2023-07-29] MEDS: CARVedilol 12.5 MG TAB PO SCH ×2 (09:08→22:19)
[2023-07-29] MEDS: **hydrALAZINE HCL** 25 MG TAB PO SCH ×3 (09:08→22:19)
[2023-07-29] MEDS: AMIODARONE 200 MG TAB (PACERONE) PO SCH (09:08)
[2023-07-29] MEDS: predniSONE 20 MG TAB PO SCH (09:08)
[2023-07-29] MEDS: ISOSORBIDE MON. (IMDUR) 30MG XR TAB PO SCH (09:08)
[2023-07-29] MEDS: PANTOPRAZOLE 40MG TAB (PROTONIX) PO SCH (09:09)
[2023-07-29] MEDS: FINASTERIDE 5MG TAB PO SCH (09:09)
[2023-07-29] MEDS: OMEPRAZOLE 20MG CAP PO SCH (09:09)
[2023-07-29 11:59] VITALS: BP 142/60; TEMP 97.5; O2SAT 98
[2023-07-29] MEDS: TORSEMIDE 20 MG TAB PO SCH ×2 (12:32→16:55)
[2023-07-29] MEDS: SPIRONOLACTONE 12.5MG PER 1/2 TABLET PO SCH (13:11)
[2023-07-29 15:37] VITALS: BP 132/61; TEMP 97.3; O2SAT 91
[2023-07-29 20:00] VITALS: BP 142/80; TEMP 98.1; O2SAT 98
[2023-07-29] MEDS: DULoxetine 30MG CAPSULE (CYMBALTA) PO SCH (22:19)
[2023-07-29] MEDS: CETIRIZINE (ZyrTEC) 10 MG TAB PO SCH (22:20)
[2023-07-29] MEDS: ATORVASTATIN 20 MG TAB PO SCH (22:20)
[2023-07-29] MEDS: TAMSULOSIN 0.4 MG CAP PO SCH (22:20)
[2023-07-30] VITALS: BP 157/69; TEMP 97.5; O2SAT 96
[2023-07-30 01:48] LABS: CREATININE FOR GFR 1.34 MG/DL (0.70-1.30); GLOMERULAR FILTRATION RATE 54.6 (>35); MAGNESIUM LEVEL 2.2 MG/DL (1.8-2.4); POTASSIUM SERUM 4.1 MMOL/L (3.5-5.1)
[2023-07-30 03:23] VITALS: BP 150/73; TEMP 96.5; O2SAT 97
[2023-07-30 05:53] LABS: HEMATOCRIT 27.3 % (42.0-52.0); HEMOGLOBIN 8.4 g/dl (13.5-17.5); MEAN CORPUSCULAR HEMOGLOBIN 22.8 pg (27.0-33.0); MEAN CORPUSCULAR HGB CONC 30.8 g/dl (32.0-36.5); MEAN CORPUSCULAR VOLUME 74.2 fl (80.0-96.0); PLATELET COUNT, AUTOMATED 210 10^3/uL (150-450); RED BLOOD COUNT 3.68 10^6/uL (4.30-6.10); WHITE BLOOD COUNT 7.6 10^3/uL (4.0-10.0)
[2023-07-30 06:04] LABS: INR 2.1; PROTHROMBIN TIME 22.8 SECONDS (12.5-14.5)
[2023-07-30 06:11] LABS: CALCIUM LEVEL 7.9 MG/DL (8.3-10.6); CREATININE FOR GFR 1.3 MG/DL (0.70-1.30); GLOMERULAR FILTRATION RATE 56.5 (>35)
[2023-07-30 07:39] VITALS: BP 119/53; TEMP 97.7; O2SAT 97
[2023-07-30] MEDS: IPRATROPIUM 0.5MG/ALBUTEROL 2.5MG INH SOL UD 3ML (DUONEB) NEB SCH ×3 (08:00→15:02)
[2023-07-30] MEDS: CARVedilol 12.5 MG TAB PO SCH (09:00)
[2023-07-30] MEDS: TORSEMIDE 20 MG TAB PO SCH (09:32)
[2023-07-30 09:37] VITALS: BP 118/78
[2023-07-30] MEDS: SPIRONOLACTONE 12.5MG PER 1/2 TABLET PO SCH (09:37)
[2023-07-30] MEDS: DOCUSATE SODIUM 100MG CAPSULE PO SCH (09:37)
[2023-07-30] MEDS: **hydrALAZINE HCL** 25 MG TAB PO SCH (09:38)
[2023-07-30] MEDS: OMEPRAZOLE 20MG CAP PO SCH (09:38)
[2023-07-30] MEDS: predniSONE 20 MG TAB PO SCH (09:38)
[2023-07-30] MEDS: FINASTERIDE 5MG TAB PO SCH (09:39)
[2023-07-30] MEDS: ISOSORBIDE MON. (IMDUR) 30MG XR TAB PO SCH (09:39)
[2023-07-30] MEDS: AMIODARONE 200 MG TAB (PACERONE) PO SCH (09:42)
[2023-07-30 11:57] VITALS: BP 126/68; TEMP 97.7; O2SAT 94
[2023-08-01] MEDS ORDERED: metOLazone 2.5 MG TAB PO SCH (09:00)
== END 2023-07-30 16:04 | disposition home health service (06) | DRG 551 ==
LOC: EDBD 03:18 → M ED 03:18 → M ED INP 09:36 → ENRESERV 15:27 → M PCU 16:51
PROVIDERS: ADMIT Student in an Organized Health Care Education/Training Program; ATTEND Family Medicine
PROC: B246ZZZ Ultrasonography of Right and Left Heart (ICD-10-PCS; principal; 2023-07-27)
DX: S22.080A Wedge compression fracture of T11-T12 vertebra, initial encounter for closed fracture (principal); I71.010 Dissection of ascending aorta; I13.0 Hypertensive heart and chronic kidney disease with heart failure and stage 1 through stage 4 chronic kidney disease, or unspecified chronic kidney disease; N17.9 Acute kidney failure, unspecified; I50.32 Chronic diastolic (congestive) heart failure; F03.90 Unspecified dementia, unspecified severity, without behavioral disturbance, psychotic disturbance, mood disturbance, and anxiety; I48.0 Paroxysmal atrial fibrillation; I08.0 Rheumatic disorders of both mitral and aortic valves; I71.21 Aneurysm of the ascending aorta, without rupture; I25.10 Atherosclerotic heart disease of native coronary artery without angina pectoris; E78.5 Hyperlipidemia, unspecified; I27.20 Pulmonary hypertension, unspecified; N18.31 Chronic kidney disease, stage 3a; D64.9 Anemia, unspecified; N40.1 Benign prostatic hyperplasia with lower urinary tract symptoms; K21.9 Gastro-esophageal reflux disease without esophagitis; N13.9 Obstructive and reflux uropathy, unspecified; R29.6 Repeated falls; Z95.2 Presence of prosthetic heart valve; Z79.01 Long term (current) use of anticoagulants; Z86.73 Personal history of transient ischemic attack (TIA), and cerebral infarction without residual deficits; Z87.81 Personal history of (healed) traumatic fracture; Z87.891 Personal history of nicotine dependence; Z79.899 Other long term (current) drug therapy; W19.XXXA Unspecified fall, initial encounter; Y92.009 Unspecified place in unspecified non-institutional (private) residence as the place of occurrence of the external cause; Y93.9 Activity, unspecified; Y99.8 Other external cause status

== ENCOUNTER → 2023-08-16 | Outpatient (REF) | payer MEDICARE ==
[~2023-08-16] MED LIST changes: +HYDR-3910 PO; -HYDR-3911 PO; +HYDR50TA46 PO; +LEVOTAB10 PO; +METO25TA PO; +POTA1TAB23 PO; +TORS20TA2 PO
[2023-08-16 14:06] LABS: ALBUMIN 3.1 G/DL (3.2-5.2); ALKALINE PHOSPHATASE 102 U/L (46-116); ALT/SGPT 14 U/L (7.0-40); AST/SGOT 12 U/L (<34); BILIRUBIN,TOTAL 0.2 MG/DL (0.3-1.2); BLOOD UREA NITROGEN 13 MG/DL (9-23); CALCIUM LEVEL 8.8 MG/DL (8.3-10.6); CARBON DIOXIDE LEVEL 31 MMOL/L (20-31); CHLORIDE LEVEL 107 MMOL/L (98-107); CREATININE FOR GFR 1.21 MG/DL (0.70-1.30); GLOMERULAR FILTRATION RATE > 60.0 (>35); GLUCOSE, FASTING 82 MG/DL (74-106); POTASSIUM SERUM 4.5 MMOL/L (3.5-5.1); SODIUM LEVEL 139 MMOL/L (136-145); TOTAL PROTEIN 6.7 G/DL (5.7-8.2)
[2023-08-16 14:10] LABS: BASO % 0.2 % (0.0-1.0); EOS # 0.1 10^3/uL (0.0-0.5); EOS % 2.2 % (0.0-3.0); HEMATOCRIT 35.9 % (42.0-52.0); HEMOGLOBIN 10.6 g/dl (13.5-17.5); LYMPH # 0.7 10^3/uL (1.5-5.0); LYMPH % 17.8 % (24.0-44.0); MEAN CORPUSCULAR HEMOGLOBIN 24.3 pg (27.0-33.0); MEAN CORPUSCULAR HGB CONC 29.5 g/dl (32.0-36.5); MEAN CORPUSCULAR VOLUME 82.2 fl (80.0-96.0); MONO # 0.4 10^3/uL (0.0-0.8); MONO % 9.6 % (2.0-8.0); NEUTROPHILS # 2.9 10^3/uL (1.5-8.5); PLATELET COUNT, AUTOMATED 234 10^3/uL (150-450); RED BLOOD COUNT 4.37 10^6/uL (4.30-6.10); WHITE BLOOD COUNT 4.2 10^3/uL (4.0-10.0)
== END ==
LOC: M LABDRWAD 12:32
PROVIDERS: ATTEND Internal Medicine Cardiovascular Disease
DX: I50.32 Chronic diastolic (congestive) heart failure (principal); I48.0 Paroxysmal atrial fibrillation; I35.9 Nonrheumatic aortic valve disorder, unspecified; I25.10 Atherosclerotic heart disease of native coronary artery without angina pectoris; I11.0 Hypertensive heart disease with heart failure

== ENCOUNTER 2023-08-25 15:50 | Inpatient (IN) | payer MEDICARE ==
[~2023-08-25] VITALS: Ht 177.8 cm; Wt 99.1 kg
[2023-08-25] MEDS ORDERED: NS 1,000 ML IV ONE ×2 (17:00→18:15)
[2023-08-25 17:27] LABS: BASO % 0.3 % (0.0-1.0); EOS # 0.1 10^3/uL (0.0-0.5); EOS % 1.7 % (0.0-3.0); HEMATOCRIT 40.3 % (42.0-52.0); HEMOGLOBIN 12.3 g/dl (13.5-17.5); LYMPH # 0.8 10^3/uL (1.5-5.0); LYMPH % 12.6 % (24.0-44.0); MEAN CORPUSCULAR HEMOGLOBIN 24.5 pg (27.0-33.0); MEAN CORPUSCULAR HGB CONC 30.5 g/dl (32.0-36.5); MEAN CORPUSCULAR VOLUME 80.1 fl (80.0-96.0); MONO # 0.8 10^3/uL (0.0-0.8); MONO % 12.2 % (2.0-8.0); NEUTROPHILS # 4.8 10^3/uL (1.5-8.5); NEUTROPHILS % 72.9 % (36.0-66.0); PLATELET COUNT, AUTOMATED 219 10^3/uL (150-450); RED BLOOD COUNT 5.03 10^6/uL (4.30-6.10); WHITE BLOOD COUNT 6.6 10^3/uL (4.0-10.0)
[2023-08-25 17:57] LABS: CK-MB VALUE MASS < 1.0 NG/ML (<3.6)
[2023-08-25 17:59] LABS: CPK CREATINE PHOSPHOKINASE 67 U/L (46-171); MB/CK RELATIVE INDEX 1.49 (< OR =4)
[2023-08-25 18:00] LABS: ALBUMIN 3.6 G/DL (3.2-5.2); ALKALINE PHOSPHATASE 125 U/L (46-116); ALT/SGPT 18 U/L (7.0-40); AST/SGOT 12 U/L (<34); BILIRUBIN,DIRECT 0.1 MG/DL (<0.4); BILIRUBIN,TOTAL 0.5 MG/DL (0.3-1.2); BLOOD UREA NITROGEN 34 MG/DL (9-23); CALCIUM LEVEL 8.9 MG/DL (8.3-10.6); CARBON DIOXIDE LEVEL 35 MMOL/L (20-31); CHLORIDE LEVEL 95 MMOL/L (98-107); CREATININE FOR GFR 2.08 MG/DL (0.70-1.30); GLOMERULAR FILTRATION RATE 32.9 (>35); GLUCOSE, FASTING 116 MG/DL (74-106); POTASSIUM SERUM 3.4 MMOL/L (3.5-5.1); SODIUM LEVEL 138 MMOL/L (136-145); TOTAL PROTEIN 6.9 G/DL (5.7-8.2)
[2023-08-25 18:01] LABS: THYROID STIMULATING HORMONE 4.498 uIU/ML (0.55-4.78)
[2023-08-25 18:03] LABS: FREE T4 1.61 NG/DL (0.89-1.76)
[2023-08-25] MEDS ORDERED: POTASSIUM CHLORIDE 10MEQ SR TABLET PO ONE (18:15)
[2023-08-25 21:22] LABS: INR 2.8; PROTHROMBIN TIME 28.5 SECONDS (12.5-14.5)
[2023-08-25] MEDS ORDERED: ATOR40TA75 PO (21:56)
[2023-08-25] MEDS ORDERED: AMLO1TAB25 PO (21:56)
[2023-08-25] MEDS ORDERED: DOCU100C16 PO (21:59)
[2023-08-25] MEDS ORDERED: FLOM0.4C39 PO (22:09)
[2023-08-25] MEDS ORDERED: EPLE25TA PO (22:09)
[2023-08-25] MEDS ORDERED: PANT-23 PO (22:09)
[2023-08-25] MEDS ORDERED: WARF-18 PO (22:19)
[2023-08-25] MEDS ORDERED: HOME MED LIST COMPLETE! XX SCH (22:20)
[2023-08-25] MEDS ORDERED: ACETAMINOPHEN TAB 650MG DOSE (2X325MG) PO PRN (22:45)
[2023-08-25] MEDS ORDERED: MOM 30ML SUSPENSION UDC PO PRN (22:45)
[2023-08-25] MEDS ORDERED: MAALOX 30 ML SUSP *UDC PO PRN (22:45)
[2023-08-25 22:46] LABS: CK-MB VALUE MASS < 1.0 NG/ML (<3.6)
[2023-08-25 22:47] LABS: CPK CREATINE PHOSPHOKINASE 127 U/L (46-171); MB/CK RELATIVE INDEX 0.78 (< OR =4)
[2023-08-26 05:28] LABS: HEMATOCRIT 35.8 % (42.0-52.0); MEAN CORPUSCULAR HEMOGLOBIN 24.8 pg (27.0-33.0); MEAN CORPUSCULAR HGB CONC 30.7 g/dl (32.0-36.5); MEAN CORPUSCULAR VOLUME 80.8 fl (80.0-96.0); PLATELET COUNT, AUTOMATED 176 10^3/uL (150-450); RED BLOOD COUNT 4.43 10^6/uL (4.30-6.10); WHITE BLOOD COUNT 5.7 10^3/uL (4.0-10.0)
[2023-08-26 05:40] LABS: INR 2.64; PROTHROMBIN TIME 27.2 SECONDS (12.5-14.5)
[2023-08-26 05:54] LABS: CALCIUM LEVEL 8.8 MG/DL (8.3-10.6); CREATININE FOR GFR 1.54 MG/DL (0.70-1.30); GLOMERULAR FILTRATION RATE 46.5 (>35); MAGNESIUM LEVEL 2.3 MG/DL (1.8-2.4); POTASSIUM SERUM 3.7 MMOL/L (3.5-5.1)
[2023-08-26] MEDS ORDERED: NS 1,000 ML IV SCH (06:55)
[2023-08-26] MEDS: DOCUSATE SODIUM 100MG CAPSULE PO SCH ×2 (09:33→21:12)
[2023-08-26 10:00] VITALS: BP 157/78; TEMP 97.9; O2SAT 91
[2023-08-26 14:00] VITALS: BP 123/57; TEMP 97.7; O2SAT 97
[2023-08-26] MEDS ORDERED: WARFARIN SOD 5MG TAB PO SCH (17:00)
[2023-08-26] MEDS: **hydrALAZINE HCL** 25 MG TAB PO SCH ×2 (17:05→21:12)
[2023-08-26] MEDS: ATORVASTATIN 20 MG TAB PO SCH (21:11)
[2023-08-26] MEDS: TAMSULOSIN 0.4 MG CAP PO SCH (21:11)
[2023-08-26] MEDS: CARVedilol 12.5 MG TAB PO SCH (21:13)
[2023-08-26 22:00] VITALS: BP 146/68; TEMP 99.3; O2SAT 93
[2023-08-27 06:00] VITALS: BP 128/70; TEMP 98.8; O2SAT 94
[2023-08-27 07:01] LABS: INR 2.17; PROTHROMBIN TIME 23.4 SECONDS (12.5-14.5)
[2023-08-27] MEDS: DOCUSATE SODIUM 100MG CAPSULE PO SCH ×2 (08:23→20:38)
[2023-08-27] MEDS: ISOSORBIDE MON. (IMDUR) 30MG XR TAB PO SCH (08:24)
[2023-08-27] MEDS: **hydrALAZINE HCL** 25 MG TAB PO SCH ×3 (08:24→20:38)
[2023-08-27] MEDS: OMEPRAZOLE 20MG CAP PO SCH (08:25)
[2023-08-27] MEDS: CARVedilol 12.5 MG TAB PO SCH ×2 (08:25→20:39)
[2023-08-27] MEDS: PANTOPRAZOLE 40MG TAB (PROTONIX) PO SCH (08:25)
[2023-08-27 14:00] VITALS: BP 157/74; TEMP 97.7; O2SAT 97
[2023-08-27 15:14] LABS: CALCIUM LEVEL 8.5 MG/DL (8.3-10.6); CREATININE FOR GFR 1.28 MG/DL (0.70-1.30); GLOMERULAR FILTRATION RATE 57.6 (>35); MAGNESIUM LEVEL 2.3 MG/DL (1.8-2.4); POTASSIUM SERUM 3.4 MMOL/L (3.5-5.1)
[2023-08-27] MEDS ORDERED: WARFARIN SOD 2.5MG TAB PO SCH (17:00)
[2023-08-27] MEDS: TAMSULOSIN 0.4 MG CAP PO SCH (20:39)
[2023-08-27] MEDS: ATORVASTATIN 20 MG TAB PO SCH (20:39)
[2023-08-27 20:52] VITALS: BP 139/70; TEMP 98.6; O2SAT 95
[2023-08-28 05:34] VITALS: BP 138/71; TEMP 99.3; O2SAT 94
[2023-08-28 06:35] LABS: INR 2.36
[2023-08-28 07:44] LABS: BLOOD UREA NITROGEN 16 MG/DL (9-23); CALCIUM LEVEL 8.5 MG/DL (8.3-10.6); CARBON DIOXIDE LEVEL 30 MMOL/L (20-31); CHLORIDE LEVEL 98 MMOL/L (98-107); CREATININE FOR GFR 1.16 MG/DL (0.70-1.30); GLOMERULAR FILTRATION RATE > 60.0 (>35); GLUCOSE, FASTING 103 MG/DL (74-106); POTASSIUM SERUM 3.2 MMOL/L (3.5-5.1); SODIUM LEVEL 134 MMOL/L (136-145)
[2023-08-28] MEDS: OMEPRAZOLE 20MG CAP PO SCH (08:32)
[2023-08-28] MEDS: DOCUSATE SODIUM 100MG CAPSULE PO SCH ×2 (08:32→21:13)
[2023-08-28] MEDS: PANTOPRAZOLE 40MG TAB (PROTONIX) PO SCH (08:32)
[2023-08-28] MEDS: **hydrALAZINE HCL** 25 MG TAB PO SCH ×3 (08:33→21:14)
[2023-08-28] MEDS: CARVedilol 12.5 MG TAB PO SCH ×2 (08:33→21:12)
[2023-08-28] MEDS: ISOSORBIDE MON. (IMDUR) 30MG XR TAB PO SCH (08:34)
[2023-08-28] MEDS: POTASSIUM CHLORIDE 10MEQ SR TABLET PO SCH (08:35)
[2023-08-28 14:00] VITALS: BP 139/70; TEMP 98.6; O2SAT 97
[2023-08-28] MEDS ORDERED: IPRATROPIUM 0.5MG/ALBUTEROL 2.5MG INH SOL UD 3ML (DUONEB) NEB PRN (16:10)
[2023-08-28] MEDS ORDERED: IPRATROPIUM 0.5MG/ALBUTEROL 2.5MG INH SOL UD 3ML (DUONEB) NEB STA (16:10)
[2023-08-28] MEDS: WARFARIN SOD 2.5MG TAB PO SCH (16:28)
[2023-08-28 20:08] VITALS: BP 118/66; TEMP 97.9; O2SAT 94
[2023-08-28] MEDS: KCL 10MEQ/100ML SWI (KRUN) 10 MEQ in IV 1 EA IV SCH ×2 (21:12→22:13)
[2023-08-28] MEDS: ATORVASTATIN 20 MG TAB PO SCH (21:13)
[2023-08-28] MEDS: TAMSULOSIN 0.4 MG CAP PO SCH (21:13)
[2023-08-29 06:00] VITALS: BP 142/72; TEMP 98.4; O2SAT 93
[2023-08-29 06:13] LABS: INR 2.2; PROTHROMBIN TIME 23.7 SECONDS (12.5-14.5)
[2023-08-29 06:18] LABS: BLOOD UREA NITROGEN 16 MG/DL (9-23); CALCIUM LEVEL 8.6 MG/DL (8.3-10.6); CARBON DIOXIDE LEVEL 31 MMOL/L (20-31); CHLORIDE LEVEL 104 MMOL/L (98-107); GLOMERULAR FILTRATION RATE > 60.0 (>35); GLUCOSE, FASTING 99 MG/DL (74-106); MAGNESIUM LEVEL 2.2 MG/DL (1.8-2.4); POTASSIUM SERUM 3.6 MMOL/L (3.5-5.1); SODIUM LEVEL 140 MMOL/L (136-145)
[2023-08-29] MEDS ORDERED: metOLazone 2.5 MG TAB PO SCH (09:00)
[2023-08-29] MEDS: DOCUSATE SODIUM 100MG CAPSULE PO SCH ×2 (09:20→20:22)
[2023-08-29] MEDS: ISOSORBIDE MON. (IMDUR) 30MG XR TAB PO SCH (09:23)
[2023-08-29] MEDS: CARVedilol 12.5 MG TAB PO SCH ×2 (09:23→20:24)
[2023-08-29] MEDS: OMEPRAZOLE 20MG CAP PO SCH (09:23)
[2023-08-29] MEDS: PANTOPRAZOLE 40MG TAB (PROTONIX) PO SCH (09:25)
[2023-08-29] MEDS: POTASSIUM CHLORIDE 10MEQ SR TABLET PO SCH (09:25)
[2023-08-29] MEDS: **hydrALAZINE HCL** 25 MG TAB PO SCH ×4 (09:27→20:23)
[2023-08-29 14:00] VITALS: BP 109/54; TEMP 98.1; O2SAT 97
[2023-08-29 14:39] VITALS: BP 110/65
[2023-08-29] MEDS: WARFARIN SOD 2.5MG TAB PO SCH (16:19)
[2023-08-29 20:00] VITALS: BP 141/80; TEMP 98.6; O2SAT 92
[2023-08-29] MEDS: TAMSULOSIN 0.4 MG CAP PO SCH (20:22)
[2023-08-29] MEDS: ATORVASTATIN 20 MG TAB PO SCH (20:22)
[2023-08-29 20:23] VITALS: BP 141/80
[2023-09-02] MEDS ORDERED: WARFARIN SOD 5MG TAB PO SCH (17:00)
== END 2023-08-29 20:48 | DRG 884 ==
LOC: M ED 15:50 → EDBD 15:50 → M ED INP 22:43 → ENRESERV 08-26 09:22 → M MSPAV 08-26 09:50
PROVIDERS: ADMIT Family Medicine; ATTEND Student in an Organized Health Care Education/Training Program
DX: R54 Age-related physical debility (principal); I69.351 Hemiplegia and hemiparesis following cerebral infarction affecting right dominant side; I13.0 Hypertensive heart and chronic kidney disease with heart failure and stage 1 through stage 4 chronic kidney disease, or unspecified chronic kidney disease; I50.32 Chronic diastolic (congestive) heart failure; N17.9 Acute kidney failure, unspecified; I48.0 Paroxysmal atrial fibrillation; F03.90 Unspecified dementia, unspecified severity, without behavioral disturbance, psychotic disturbance, mood disturbance, and anxiety; I25.10 Atherosclerotic heart disease of native coronary artery without angina pectoris; Z95.2 Presence of prosthetic heart valve; R29.6 Repeated falls; Z66 Do not resuscitate; E78.5 Hyperlipidemia, unspecified; N18.32 Chronic kidney disease, stage 3b; I71.21 Aneurysm of the ascending aorta, without rupture; Z87.891 Personal history of nicotine dependence; R94.31 Abnormal electrocardiogram [ECG] [EKG]; J44.9 Chronic obstructive pulmonary disease, unspecified; N40.1 Benign prostatic hyperplasia with lower urinary tract symptoms; R33.9 Retention of urine, unspecified; D50.9 Iron deficiency anemia, unspecified; K21.9 Gastro-esophageal reflux disease without esophagitis; Z79.01 Long term (current) use of anticoagulants; Z79.899 Other long term (current) drug therapy

== ENCOUNTER 2023-08-29 12:28 | Inpatient (IN) | payer MEDICARE ==
[~2023-08-29] VITALS: Ht 175.3 cm; Wt 92.5 kg
[~2023-08-29 12:28] MED LIST changes: +DOCU100C16 PO; -HYDR-3910 PO; +HYDR25TA87 PO
[2023-08-29] MEDS ORDERED: SIMETHICONE 80MG CHEW TAB PO PRN (14:45)
[2023-08-29] MEDS ORDERED: MOM 30ML SUSPENSION UDC PO PRN (14:45)
[2023-08-29] MEDS ORDERED: MAALOX 30 ML SUSP *UDC PO PRN (14:45)
[2023-08-29 21:00] VITALS: BP 136/74; TEMP 97.9; O2SAT 96
[2023-08-29] MEDS: POTASSIUM CHLORIDE 10MEQ SR TABLET PO SCH (21:41)
[2023-08-29] MEDS: DULoxetine 30MG CAPSULE (CYMBALTA) PO SCH (21:41)
[2023-08-30 06:00] VITALS: BP 137/67; TEMP 97.6; O2SAT 97
[2023-08-30 06:36] LABS: BASO % 0.3 % (0.0-1.0); EOS # 0.1 10^3/uL (0.0-0.5); EOS % 2.3 % (0.0-3.0); HEMATOCRIT 33.2 % (42.0-52.0); HEMOGLOBIN 10.3 g/dl (13.5-17.5); LYMPH # 0.9 10^3/uL (1.5-5.0); LYMPH % 15.8 % (24.0-44.0); MEAN CORPUSCULAR HEMOGLOBIN 25.1 pg (27.0-33.0); MEAN CORPUSCULAR VOLUME 80.8 fl (80.0-96.0); MONO # 0.7 10^3/uL (0.0-0.8); MONO % 12.9 % (2.0-8.0); NEUTROPHILS # 3.9 10^3/uL (1.5-8.5); NEUTROPHILS % 68.5 % (36.0-66.0); PLATELET COUNT, AUTOMATED 174 10^3/uL (150-450); RED BLOOD COUNT 4.11 10^6/uL (4.30-6.10); WHITE BLOOD COUNT 5.8 10^3/uL (4.0-10.0)
[2023-08-30 08:07] LABS: INR 2.01; PROTHROMBIN TIME 22.1 SECONDS (12.5-14.5)
[2023-08-30 08:20] LABS: BLOOD UREA NITROGEN 19 MG/DL (9-23); CALCIUM LEVEL 8.5 MG/DL (8.3-10.6); CARBON DIOXIDE LEVEL 32 MMOL/L (20-31); CHLORIDE LEVEL 102 MMOL/L (98-107); GLOMERULAR FILTRATION RATE > 60.0 (>35); GLUCOSE, FASTING 106 MG/DL (74-106); POTASSIUM SERUM 3.6 MMOL/L (3.5-5.1); SODIUM LEVEL 138 MMOL/L (136-145)
[2023-08-30] MEDS: PANTOPRAZOLE 40MG TAB (PROTONIX) PO SCH (09:40)
[2023-08-30] MEDS: TORSEMIDE 20 MG TAB PO SCH (09:40)
[2023-08-30] MEDS: OMEPRAZOLE 20MG CAP PO SCH (09:40)
[2023-08-30] MEDS: **hydrALAZINE HCL** 25 MG TAB PO SCH (09:41)
[2023-08-30] MEDS: CARVedilol 12.5 MG TAB PO SCH (09:41)
[2023-08-30] MEDS: ISOSORBIDE MON. (IMDUR) 30MG XR TAB PO SCH (09:41)
[2023-08-30 14:00] VITALS: BP 128/61; TEMP 97.6; O2SAT 97
[2023-08-30] MEDS ORDERED: WARFARIN SOD 2.5MG TAB PO SCH (17:00)
[2023-08-30] MEDS: WARFARIN SOD 5MG TAB PO SCH (18:20)
[2023-08-30 20:00] VITALS: BP 140/68; TEMP 97.9; O2SAT 96
[2023-08-30] MEDS: TAMSULOSIN 0.4 MG CAP PO SCH (20:37)
[2023-08-30] MEDS: ATORVASTATIN 20 MG TAB PO SCH (20:37)
[2023-08-31 06:01] VITALS: BP 121/57; TEMP 97.1; O2SAT 94
[2023-08-31 06:59] LABS: INR 1.95; PROTHROMBIN TIME 21.6 SECONDS (12.5-14.5)
[2023-08-31 12:17] LABS: CREATININE FOR GFR 1.59 MG/DL (0.70-1.30); GLOMERULAR FILTRATION RATE 44.8 (>35)
[2023-08-31] MEDS: ENOXAPARIN 100MG/1ML SYRINGE (J1650 PER 10MG) SC SCH (13:52)
[2023-08-31 14:00] VITALS: BP 112/59; TEMP 98.2; O2SAT 96
[2023-08-31] MEDS: WARFARIN SOD 7.5MG TAB PO SCH (16:35)
[2023-08-31 20:00] VITALS: BP 144/62; TEMP 97.3; O2SAT 95
[2023-09-01 06:00] VITALS: BP 123/58; TEMP 96.7; O2SAT 96
[2023-09-01 06:50] LABS: INR 2.12
[2023-09-01] MEDS: metOLazone 2.5 MG TAB PO SCH (08:19)
[2023-09-01 11:06] LABS: CALCIUM LEVEL 8.5 MG/DL (8.3-10.6); CREATININE FOR GFR 1.57 MG/DL (0.70-1.30); GLOMERULAR FILTRATION RATE 45.5 (>35); POTASSIUM SERUM 3.3 MMOL/L (3.5-5.1)
[2023-09-01 14:00] VITALS: BP 125/60; TEMP 97.9; O2SAT 97
[2023-09-01 20:00] VITALS: BP 102/50; TEMP 97.3; O2SAT 94
[2023-09-01] MEDS: KCL 10MEQ/100ML SWI (KRUN) 10 MEQ in IV 1 EA IV ONE (22:00)
[2023-09-02 06:00] VITALS: BP 118/68; TEMP 97.4; O2SAT 95
[2023-09-02 06:19] LABS: INR 2.72; PROTHROMBIN TIME 27.8 SECONDS (12.5-14.5)
[2023-09-02] MEDS: DOCUSATE SODIUM 100MG CAPSULE PO PRN (08:17)
[2023-09-02 14:01] VITALS: BP 119/66; TEMP 97.7; O2SAT 95
[2023-09-02] MEDS ORDERED: WARFARIN SOD 5MG TAB PO SCH (17:00)
[2023-09-02] MEDS: WARFARIN SOD 5MG TAB PO SCH (17:09)
[2023-09-02 20:00] VITALS: BP 139/69; TEMP 96.8; O2SAT 92
[2023-09-03 05:34] VITALS: BP 122/63; TEMP 97.7; O2SAT 95
[2023-09-03 07:26] LABS: HEMATOCRIT 33.7 % (42.0-52.0); HEMOGLOBIN 10.7 g/dl (13.5-17.5); MEAN CORPUSCULAR HEMOGLOBIN 25.5 pg (27.0-33.0); MEAN CORPUSCULAR HGB CONC 31.8 g/dl (32.0-36.5); MEAN CORPUSCULAR VOLUME 80.2 fl (80.0-96.0); PLATELET COUNT, AUTOMATED 198 10^3/uL (150-450); WHITE BLOOD COUNT 4.8 10^3/uL (4.0-10.0)
[2023-09-03 07:48] LABS: INR 3.13
[2023-09-03 14:00] VITALS: BP 116/62; TEMP 97.6; O2SAT 98
[2023-09-03] MEDS: WARFARIN SOD 2.5MG TAB PO SCH (16:34)
[2023-09-03 20:00] VITALS: BP 112/59; TEMP 98; O2SAT 95
[2023-09-04 05:21] VITALS: BP 112/55; TEMP 97.9; O2SAT 94
[2023-09-04 06:57] LABS: INR 3.74; PROTHROMBIN TIME 35.6 SECONDS (12.5-14.5)
[2023-09-04 14:00] VITALS: BP 117/61; TEMP 97.6; O2SAT 96
[2023-09-04 19:22] VITALS: BP 129/76; TEMP 97.7; O2SAT 94
[2023-09-05 06:04] VITALS: BP 125/61; TEMP 97.3; O2SAT 96
[2023-09-05 07:45] LABS: INR 3.7; PROTHROMBIN TIME 35.3 SECONDS (12.5-14.5)
[2023-09-05 11:04] LABS: CALCIUM LEVEL 8.2 MG/DL (8.3-10.6); CREATININE FOR GFR 1.52 MG/DL (0.70-1.30); GLOMERULAR FILTRATION RATE 47.2 (>35); POTASSIUM SERUM 3.3 MMOL/L (3.5-5.1)
[2023-09-05 14:00] VITALS: BP 115/58; TEMP 97.7; O2SAT 95
[2023-09-05 20:00] VITALS: BP 130/67; TEMP 98.2; O2SAT 94
[2023-09-05] MEDS: ACETAMINOPHEN TAB 650MG DOSE (2X325MG) PO PRN (20:52)
[2023-09-06 06:00] VITALS: BP 128/63; TEMP 97.8; O2SAT 99
[2023-09-06 08:51] LABS: HEMATOCRIT 36.1 % (42.0-52.0); HEMOGLOBIN 11.3 g/dl (13.5-17.5); MEAN CORPUSCULAR HEMOGLOBIN 25.3 pg (27.0-33.0); MEAN CORPUSCULAR HGB CONC 31.3 g/dl (32.0-36.5); MEAN CORPUSCULAR VOLUME 80.8 fl (80.0-96.0); PLATELET COUNT, AUTOMATED 226 10^3/uL (150-450); RED BLOOD COUNT 4.47 10^6/uL (4.30-6.10)
[2023-09-06 09:14] LABS: INR 3.16; PROTHROMBIN TIME 31.3 SECONDS (12.5-14.5)
[2023-09-06 09:43] VITALS: BP 128/63
== END 2023-09-06 14:35 | disposition home health service (06) | DRG 884 ==
LOC: M PM&R 20:54
PROVIDERS: ADMIT Physical Medicine & Rehabilitation; ATTEND Student in an Organized Health Care Education/Training Program
DX: R54 Age-related physical debility (principal); I71.010 Dissection of ascending aorta; I50.32 Chronic diastolic (congestive) heart failure; I13.0 Hypertensive heart and chronic kidney disease with heart failure and stage 1 through stage 4 chronic kidney disease, or unspecified chronic kidney disease; I69.351 Hemiplegia and hemiparesis following cerebral infarction affecting right dominant side; N17.9 Acute kidney failure, unspecified; R29.6 Repeated falls; F03.90 Unspecified dementia, unspecified severity, without behavioral disturbance, psychotic disturbance, mood disturbance, and anxiety; I48.0 Paroxysmal atrial fibrillation; D50.9 Iron deficiency anemia, unspecified; I25.10 Atherosclerotic heart disease of native coronary artery without angina pectoris; I71.21 Aneurysm of the ascending aorta, without rupture; N18.32 Chronic kidney disease, stage 3b; R33.9 Retention of urine, unspecified; I65.23 Occlusion and stenosis of bilateral carotid arteries; I34.2 Nonrheumatic mitral (valve) stenosis; Z66 Do not resuscitate; E78.5 Hyperlipidemia, unspecified; N40.1 Benign prostatic hyperplasia with lower urinary tract symptoms; Z95.2 Presence of prosthetic heart valve; Z74.09 Other reduced mobility; Z74.1 Need for assistance with personal care; Z79.01 Long term (current) use of anticoagulants; Z79.899 Other long term (current) drug therapy

== ENCOUNTER → 2023-09-12 | Outpatient (REF) | payer MEDICARE ==
[2023-09-12 15:55] LABS: BASO % 0.5 % (0.0-1.0); EOS # 0.1 10^3/uL (0.0-0.5); EOS % 1.7 % (0.0-3.0); LYMPH # 0.9 10^3/uL (1.5-5.0); LYMPH % 14.5 % (24.0-44.0); MEAN CORPUSCULAR HEMOGLOBIN 25.5 pg (27.0-33.0); MEAN CORPUSCULAR HGB CONC 30.6 g/dl (32.0-36.5); MEAN CORPUSCULAR VOLUME 83.5 fl (80.0-96.0); MONO # 0.6 10^3/uL (0.0-0.8); MONO % 10.2 % (2.0-8.0); NEUTROPHILS # 4.3 10^3/uL (1.5-8.5); NEUTROPHILS % 72.8 % (36.0-66.0); PLATELET COUNT, AUTOMATED 215 10^3/uL (150-450); RED BLOOD COUNT 4.31 10^6/uL (4.30-6.10); WHITE BLOOD COUNT 5.9 10^3/uL (4.0-10.0)
[2023-09-12 16:24] LABS: CALCIUM LEVEL 8.6 MG/DL (8.3-10.6); CREATININE FOR GFR 1.47 MG/DL (0.70-1.30); GLOMERULAR FILTRATION RATE 49.1 (>35)
== END ==
LOC: M LABDRWAD 15:06
PROVIDERS: ATTEND Physician Assistant
DX: Z79.01 Long term (current) use of anticoagulants (principal); N17.9 Acute kidney failure, unspecified

== ENCOUNTER → 2023-09-19 | Outpatient (REF) | payer MEDICARE | LOC: M SHH 12:55 | PROVIDERS: ATTEND Physician Assistant | DX: Z79.01 Long term (current) use of anticoagulants (principal) ==

== ENCOUNTER → 2023-09-22 | Outpatient (REF) | payer MEDICARE ==
[2023-09-22 13:04] LABS: INR 1.47; PROTHROMBIN TIME 17.3 SECONDS (12.5-14.5)
== END ==
LOC: M SHH 12:21
PROVIDERS: ATTEND Physician Assistant
DX: Z79.01 Long term (current) use of anticoagulants (principal)

== ENCOUNTER → 2023-10-04 | Outpatient (REF) | payer MEDICARE ==
[2023-10-04 13:05] LABS: INR 2.18; PROTHROMBIN TIME 23.5 SECONDS (12.5-14.5)
== END ==
LOC: M LAB REF 09:30
PROVIDERS: ATTEND Physician Assistant Medical
DX: Z79.01 Long term (current) use of anticoagulants (principal)

== ENCOUNTER 2023-10-13 13:00 | Emergency (ER) | payer MEDICARE ==
[~2023-10-13] VITALS: Ht 175.3 cm; Wt 90.9 kg
[2023-10-13] MEDS ORDERED: HOME MED LIST COMPLETE! XX SCH (15:00)
[2023-10-13 15:09] VITALS: BP 133/68; TEMP 96.7; O2SAT 96
== END 2023-10-13 15:23 | disposition home or self-care (01) ==
LOC: M ED 13:00 → EDBD 13:00 → M ED 15:23
DX: S00.03XA Contusion of scalp, initial encounter (principal); Y92.9 Unspecified place or not applicable; Y93.9 Activity, unspecified; Y99.9 Unspecified external cause status; I25.119 Atherosclerotic heart disease of native coronary artery with unspecified angina pectoris; I50.22 Chronic systolic (congestive) heart failure; I48.91 Unspecified atrial fibrillation; I11.0 Hypertensive heart disease with heart failure; Z87.891 Personal history of nicotine dependence; Z79.899 Other long term (current) drug therapy

== ENCOUNTER → 2023-10-18 | Outpatient (REF) | payer MEDICARE ==
[2023-10-18 14:30] LABS: INR 2.96; PROTHROMBIN TIME 29.7 SECONDS (12.5-14.5)
== END ==
LOC: M LABDRWAD 13:33
PROVIDERS: ATTEND Physician Assistant Medical
DX: Z79.01 Long term (current) use of anticoagulants (principal)

== ENCOUNTER → 2023-10-25 | Outpatient (REF) | payer MEDICARE ==
[2023-10-25 12:49] LABS: INR 2.77; PROTHROMBIN TIME 28.2 SECONDS (12.5-14.5)
== END ==
LOC: M SHH 12:16
PROVIDERS: ATTEND Physician Assistant Medical
DX: Z79.01 Long term (current) use of anticoagulants (principal)

== ENCOUNTER → 2023-11-23 | Outpatient (REF) | payer MEDICARE ==
[~2023-11-23] MED LIST changes: -EPLE25TA PO; +EPLE25TA2 PO
[2023-11-23 17:26] LABS: INR 2.38; PROTHROMBIN TIME 25.1 SECONDS (12.5-14.5)
== END ==
LOC: M LABDRWAD 16:56
PROVIDERS: ATTEND Physician Assistant Medical
DX: Z79.01 Long term (current) use of anticoagulants (principal); Z95.2 Presence of prosthetic heart valve

== ENCOUNTER 2023-12-12 13:09 | Inpatient (IN) | payer MEDICARE ==
[~2023-12-12] VITALS: Ht 170.2 cm; Wt 90.4 kg
[2023-12-12 15:17] LABS: BASO % 0.5 % (0.0-1.0); EOS # 0.2 10^3/uL (0.0-0.5); EOS % 2.6 % (0.0-3.0); HEMATOCRIT 34.5 % (42.0-52.0); HEMOGLOBIN 11.2 g/dl (13.5-17.5); LYMPH % 15.5 % (24.0-44.0); MEAN CORPUSCULAR HEMOGLOBIN 26.4 pg (27.0-33.0); MEAN CORPUSCULAR HGB CONC 32.5 g/dl (32.0-36.5); MEAN CORPUSCULAR VOLUME 81.2 fl (80.0-96.0); MONO # 0.9 10^3/uL (0.0-0.8); MONO % 14.2 % (2.0-8.0); NEUTROPHILS # 4.2 10^3/uL (1.5-8.5); NEUTROPHILS % 66.9 % (36.0-66.0); PLATELET COUNT, AUTOMATED 245 10^3/uL (150-450); RED BLOOD COUNT 4.25 10^6/uL (4.30-6.10); WHITE BLOOD COUNT 6.3 10^3/uL (4.0-10.0)
[2023-12-12 15:46] LABS: ALBUMIN 3.1 G/DL (3.2-5.2); BILIRUBIN,DIRECT 0.2 MG/DL (<0.4); BILIRUBIN,TOTAL 0.4 MG/DL (0.3-1.2); CALCIUM LEVEL 8.8 MG/DL (8.3-10.6); CK-MB VALUE MASS 1.4 NG/ML (<3.6); CREATININE FOR GFR 1.64 MG/DL (0.70-1.30); GLOMERULAR FILTRATION RATE 43.2 (>35); MB/CK RELATIVE INDEX 1.91 (< OR =4); TOTAL PROTEIN 6.6 G/DL (5.7-8.2)
[2023-12-12] MEDS ORDERED: ISOVUE-370 76% 100ML VIAL As Ordered ONE (17:23)
[2023-12-12 17:32] LABS: INR 3.52; PARTIAL THROMBOPLASTIN TIME 53.6 SECONDS (24.8-34.2); PROTHROMBIN TIME 33.9 SECONDS (12.5-14.5)
[2023-12-12 17:33] LABS: MAGNESIUM LEVEL 2.2 MG/DL (1.8-2.4)
[2023-12-12 17:42] LABS: CK-MB VALUE MASS < 1.0 NG/ML (<3.6)
[2023-12-12] MEDS: POTASSIUM CHLORIDE 10MEQ SR TABLET PO ONE (17:44)
[2023-12-12 17:45] LABS: CPK CREATINE PHOSPHOKINASE 72 U/L (46-171); MB/CK RELATIVE INDEX 1.38 (< OR =4)
[2023-12-12] MEDS: NS 1,000 ML IV SCH (18:21)
[2023-12-12] MEDS ORDERED: HOME MED LIST COMPLETE! XX SCH (20:50)
[2023-12-12 23:38] VITALS: BP 162/74; TEMP 97.3; O2SAT 90
[2023-12-13] MEDS: TAMSULOSIN 0.4 MG CAP PO SCH (00:19)
[2023-12-13] MEDS: CARVedilol 12.5 MG TAB PO SCH (00:19)
[2023-12-13] MEDS: DULoxetine 30MG CAPSULE (CYMBALTA) PO SCH (00:19)
[2023-12-13] MEDS: **hydrALAZINE HCL** 25 MG TAB PO SCH (00:19)
[2023-12-13 03:58] VITALS: BP 131/58; TEMP 97.8; O2SAT 93
[2023-12-13 06:06] LABS: INR 3.2; PROTHROMBIN TIME 31.5 SECONDS (12.5-14.5)
[2023-12-13 06:27] LABS: CALCIUM LEVEL 8.6 MG/DL (8.3-10.6); CREATININE FOR GFR 1.46 MG/DL (0.70-1.30); GLOMERULAR FILTRATION RATE 49.5 (>35); POTASSIUM SERUM 3.1 MMOL/L (3.5-5.1)
[2023-12-13 07:57] VITALS: BP 139/70; TEMP 97.3; O2SAT 92
[2023-12-13] MEDS ORDERED: TORSEMIDE 20 MG TAB PO SCH (09:00)
[2023-12-13] MEDS ORDERED: OMEPRAZOLE 20MG CAP PO SCH (09:00)
[2023-12-13] MEDS: POTASSIUM CHLORIDE 10MEQ SR TABLET PO ONE ×2 (09:31→23:31)
[2023-12-13] MEDS: DOCUSATE SODIUM 100MG CAPSULE PO SCH (09:32)
[2023-12-13] MEDS: PANTOPRAZOLE 40MG TAB (PROTONIX) PO SCH (09:32)
[2023-12-13] MEDS: AMIODARONE 200 MG TAB (PACERONE) PO SCH (09:32)
[2023-12-13] MEDS: ISOSORBIDE MON. (IMDUR) 30MG XR TAB PO SCH (09:33)
[2023-12-13] MEDS: MAG SULF 1GM/100ML (MAG RUN) 1 GM in IV 1 EA IV SCH ×2 (10:35→11:52)
[2023-12-13 14:02] LABS: CALCIUM LEVEL 9.1 MG/DL (8.3-10.6); CREATININE FOR GFR 1.52 MG/DL (0.70-1.30); GLOMERULAR FILTRATION RATE 47.2 (>35); MAGNESIUM LEVEL 3.2 MG/DL (1.8-2.4); POTASSIUM SERUM 3.6 MMOL/L (3.5-5.1)
[2023-12-13] MEDS: KCL 10MEQ/100ML SWI (KRUN) 10 MEQ in IV 1 EA IV SCH (15:49)
[2023-12-13 16:11] VITALS: BP 112/63; TEMP 96.9; O2SAT 91
[2023-12-13] MEDS: WARFARIN SOD 2.5MG TAB PO SCH (17:26)
[2023-12-13 19:32] VITALS: BP 143/69; TEMP 97.7; O2SAT 92
[2023-12-13] MEDS: ATORVASTATIN 20 MG TAB PO SCH (20:21)
[2023-12-13 23:58] VITALS: BP 138/70; TEMP 97.9; O2SAT 94
[2023-12-14 04:09] VITALS: BP 130/67; TEMP 97.6; O2SAT 93
[2023-12-14 05:38] LABS: BASO % 0.4 % (0.0-1.0); EOS # 0.2 10^3/uL (0.0-0.5); HEMATOCRIT 35.6 % (42.0-52.0); HEMOGLOBIN 11.2 g/dl (13.5-17.5); LYMPH % 14.5 % (24.0-44.0); MEAN CORPUSCULAR HGB CONC 31.5 g/dl (32.0-36.5); MEAN CORPUSCULAR VOLUME 82.6 fl (80.0-96.0); MONO # 0.8 10^3/uL (0.0-0.8); MONO % 11.3 % (2.0-8.0); NEUTROPHILS # 4.8 10^3/uL (1.5-8.5); NEUTROPHILS % 70.5 % (36.0-66.0); PLATELET COUNT, AUTOMATED 249 10^3/uL (150-450); RED BLOOD COUNT 4.31 10^6/uL (4.30-6.10); WHITE BLOOD COUNT 6.7 10^3/uL (4.0-10.0)
[2023-12-14 06:00] LABS: CALCIUM LEVEL 8.4 MG/DL (8.3-10.6); CREATININE FOR GFR 1.41 MG/DL (0.70-1.30); GLOMERULAR FILTRATION RATE 51.5 (>35); MAGNESIUM LEVEL 2.8 MG/DL (1.8-2.4); POTASSIUM SERUM 4.8 MMOL/L (3.5-5.1)
[2023-12-14 06:02] LABS: INR 2.85; PROTHROMBIN TIME 28.9 SECONDS (12.5-14.5)
[2023-12-14 08:00] VITALS: BP 115/56; TEMP 97.4; O2SAT 93
[2023-12-14 11:18] VITALS: BP 114/59; TEMP 97.5; O2SAT 96
[2023-12-14 15:55] VITALS: BP 128/66; TEMP 97.2; O2SAT 96
[2023-12-14 19:39] VITALS: BP 133/67; TEMP 97.8; O2SAT 94
[2023-12-14 23:19] VITALS: BP 128/65; TEMP 98.3; O2SAT 95
[2023-12-15 03:21] VITALS: BP 131/62; TEMP 97.1; O2SAT 95
[2023-12-15 05:00] LABS: BASO % 0.4 % (0.0-1.0); EOS # 0.2 10^3/uL (0.0-0.5); EOS % 2.5 % (0.0-3.0); HEMATOCRIT 33.3 % (42.0-52.0); HEMOGLOBIN 10.5 g/dl (13.5-17.5); LYMPH # 1.1 10^3/uL (1.5-5.0); LYMPH % 15.4 % (24.0-44.0); MEAN CORPUSCULAR HEMOGLOBIN 26.2 pg (27.0-33.0); MEAN CORPUSCULAR HGB CONC 31.5 g/dl (32.0-36.5); MONO # 0.7 10^3/uL (0.0-0.8); MONO % 9.4 % (2.0-8.0); NEUTROPHILS # 5.1 10^3/uL (1.5-8.5); PLATELET COUNT, AUTOMATED 256 10^3/uL (150-450); RED BLOOD COUNT 4.01 10^6/uL (4.30-6.10); WHITE BLOOD COUNT 7.1 10^3/uL (4.0-10.0)
[2023-12-15 05:13] LABS: INR 2.73; PROTHROMBIN TIME 27.9 SECONDS (12.5-14.5)
[2023-12-15 05:40] LABS: CALCIUM LEVEL 8.5 MG/DL (8.3-10.6); CREATININE FOR GFR 1.49 MG/DL (0.70-1.30); GLOMERULAR FILTRATION RATE 48.3 (>35); MAGNESIUM LEVEL 2.6 MG/DL (1.8-2.4); POTASSIUM SERUM 3.7 MMOL/L (3.5-5.1)
[2023-12-15] MEDS: POTASSIUM CHLORIDE 10MEQ SR TABLET PO ONE (07:23)
[2023-12-15 07:42] VITALS: BP 125/58; TEMP 97; O2SAT 93
[2023-12-15] MEDS: POTASSIUM CHLORIDE 10MEQ SR TABLET PO SCH (08:50)
[2023-12-15 11:33] VITALS: BP 126/67; TEMP 96.8; O2SAT 93
[2023-12-15 16:47] VITALS: BP 122/70; TEMP 97.9; O2SAT 94
[2023-12-15 20:00] VITALS: BP 148/71; TEMP 97.9; O2SAT 95
[2023-12-15 23:16] VITALS: BP 133/67; TEMP 97.6; O2SAT 91
[2023-12-16 03:26] VITALS: BP 140/64; TEMP 97.6; O2SAT 93
[2023-12-16 05:51] LABS: BASO % 0.4 % (0.0-1.0); EOS # 0.2 10^3/uL (0.0-0.5); EOS % 2.4 % (0.0-3.0); HEMATOCRIT 33.8 % (42.0-52.0); HEMOGLOBIN 10.8 g/dl (13.5-17.5); LYMPH # 0.9 10^3/uL (1.5-5.0); LYMPH % 11.8 % (24.0-44.0); MEAN CORPUSCULAR HEMOGLOBIN 25.9 pg (27.0-33.0); MEAN CORPUSCULAR VOLUME 81.1 fl (80.0-96.0); MONO # 0.8 10^3/uL (0.0-0.8); MONO % 10.9 % (2.0-8.0); NEUTROPHILS # 5.3 10^3/uL (1.5-8.5); NEUTROPHILS % 74.1 % (36.0-66.0); PLATELET COUNT, AUTOMATED 252 10^3/uL (150-450); RED BLOOD COUNT 4.17 10^6/uL (4.30-6.10); WHITE BLOOD COUNT 7.2 10^3/uL (4.0-10.0)
[2023-12-16 06:06] LABS: INR 2.5; PROTHROMBIN TIME 26.1 SECONDS (12.5-14.5)
[2023-12-16 06:34] LABS: CALCIUM LEVEL 8.7 MG/DL (8.3-10.6); CREATININE FOR GFR 1.26 MG/DL (0.70-1.30); GLOMERULAR FILTRATION RATE 58.6 (>35); MAGNESIUM LEVEL 2.4 MG/DL (1.8-2.4); POTASSIUM SERUM 3.9 MMOL/L (3.5-5.1)
[2023-12-16] MEDS ORDERED: IPRATROPIUM 0.5MG/ALBUTEROL 2.5MG INH SOL UD 3ML (DUONEB) NEB PRN (07:15)
[2023-12-16 07:49] VITALS: BP 142/69; TEMP 97.3; O2SAT 95
[2023-12-16] MEDS: IPRATROPIUM 0.5MG/ALBUTEROL 2.5MG INH SOL UD 3ML (DUONEB) NEB SCH (10:32)
[2023-12-16] MEDS: TORSEMIDE 20 MG TAB PO SCH (10:34)
[2023-12-16 11:51] VITALS: BP 121/66; TEMP 97.6; O2SAT 94
[2023-12-16 15:46] VITALS: BP 128/66; TEMP 97.4; O2SAT 95
[2023-12-16] MEDS: POTASSIUM CHLORIDE 10MEQ SR TABLET PO SCH (16:03)
[2023-12-16 16:20] VITALS: BP 133/69; TEMP 97.9; O2SAT 94
[2023-12-16] MEDS: WARFARIN SOD 5MG TAB PO SCH (16:24)
[2023-12-16 20:37] VITALS: BP 131/74; TEMP 98.4; O2SAT 98
[2023-12-17] VITALS (7 sets, daily range): BP systolic 104–158; BP diastolic 53–80; TEMP 97.9–98.4; O2SAT 92–95
[2023-12-17 06:08] LABS: BASO % 0.3 % (0.0-1.0); EOS # 0.1 10^3/uL (0.0-0.5); EOS % 2.1 % (0.0-3.0); HEMATOCRIT 33.6 % (42.0-52.0); HEMOGLOBIN 10.5 g/dl (13.5-17.5); LYMPH # 0.8 10^3/uL (1.5-5.0); LYMPH % 13.5 % (24.0-44.0); MEAN CORPUSCULAR HEMOGLOBIN 25.7 pg (27.0-33.0); MEAN CORPUSCULAR HGB CONC 31.3 g/dl (32.0-36.5); MEAN CORPUSCULAR VOLUME 82.4 fl (80.0-96.0); MONO # 0.7 10^3/uL (0.0-0.8); MONO % 10.4 % (2.0-8.0); NEUTROPHILS # 4.6 10^3/uL (1.5-8.5); NEUTROPHILS % 73.1 % (36.0-66.0); PLATELET COUNT, AUTOMATED 254 10^3/uL (150-450); RED BLOOD COUNT 4.08 10^6/uL (4.30-6.10); WHITE BLOOD COUNT 6.2 10^3/uL (4.0-10.0)
[2023-12-17 06:18] LABS: INR 2.69; PROTHROMBIN TIME 27.6 SECONDS (12.5-14.5)
[2023-12-17 06:35] LABS: CALCIUM LEVEL 8.3 MG/DL (8.3-10.6); CREATININE FOR GFR 1.31 MG/DL (0.70-1.30); MAGNESIUM LEVEL 2.3 MG/DL (1.8-2.4); POTASSIUM SERUM 4.2 MMOL/L (3.5-5.1)
[2023-12-17] MEDS ORDERED: ACETAMINOPHEN TAB 650MG DOSE (2X325MG) PO PRN (17:20)
[2023-12-18 04:49] VITALS: BP 117/59; TEMP 97.3; O2SAT 95
[2023-12-18 06:22] LABS: INR 2.7; PROTHROMBIN TIME 27.7 SECONDS (12.5-14.5)
[2023-12-18 09:59] LABS: CALCIUM LEVEL 8.1 MG/DL (8.3-10.6); CREATININE FOR GFR 1.29 MG/DL (0.70-1.30); GLOMERULAR FILTRATION RATE 57.1 (>35); POTASSIUM SERUM 4.2 MMOL/L (3.5-5.1)
[2023-12-18 10:00] VITALS: BP 131/67; TEMP 96.8; O2SAT 93
[2023-12-18 14:00] VITALS: BP 121/66; TEMP 97.4; O2SAT 93
[2023-12-18 22:00] VITALS: BP 118/74; TEMP 97.3; O2SAT 92
[2023-12-19 06:00] VITALS: BP 131/72; TEMP 97.9; O2SAT 94
[2023-12-19 06:58] LABS: INR 2.47; PROTHROMBIN TIME 25.9 SECONDS (12.5-14.5)
[2023-12-19] MEDS: NORCO, ANEXSIA 5/325MG TABLET (HYDROcodone/ACETAMINOPHEN) PO PRN (09:05)
[2023-12-19 11:38] LABS: CALCIUM LEVEL 8.4 MG/DL (8.3-10.6); CREATININE FOR GFR 1.31 MG/DL (0.70-1.30); POTASSIUM SERUM 4.4 MMOL/L (3.5-5.1)
[2023-12-19 14:00] VITALS: BP 109/58; TEMP 97.5; O2SAT 94
[2023-12-19 20:00] VITALS: BP 127/73; TEMP 97.9; O2SAT 94
[2023-12-19 22:00] VITALS: BP 107/60; TEMP 97.9; O2SAT 95
[2023-12-20 06:00] VITALS: BP 155/76; TEMP 97.7; O2SAT 94
[2023-12-20 07:08] LABS: HEMATOCRIT 31.1 % (42.0-52.0); HEMOGLOBIN 9.9 g/dl (13.5-17.5); MEAN CORPUSCULAR HEMOGLOBIN 26.4 pg (27.0-33.0); MEAN CORPUSCULAR HGB CONC 31.8 g/dl (32.0-36.5); MEAN CORPUSCULAR VOLUME 82.9 fl (80.0-96.0); PLATELET COUNT, AUTOMATED 234 10^3/uL (150-450); RED BLOOD COUNT 3.75 10^6/uL (4.30-6.10); WHITE BLOOD COUNT 6.5 10^3/uL (4.0-10.0)
[2023-12-20 07:37] LABS: CALCIUM LEVEL 8.4 MG/DL (8.3-10.6); CREATININE FOR GFR 1.29 MG/DL (0.70-1.30); GLOMERULAR FILTRATION RATE 57.1 (>35); POTASSIUM SERUM 4.1 MMOL/L (3.5-5.1)
[2023-12-20 14:00] VITALS: BP 123/65; TEMP 97.3; O2SAT 95
[2023-12-20 16:35] LABS: INR 2.08; PROTHROMBIN TIME 22.7 SECONDS (12.5-14.5)
[2023-12-20 20:00] VITALS: BP 126/66; TEMP 98.2; O2SAT 93
[2023-12-21 06:16] LABS: BASO % 0.3 % (0.0-1.0); EOS # 0.1 10^3/uL (0.0-0.5); EOS % 2.4 % (0.0-3.0); HEMATOCRIT 31.1 % (42.0-52.0); HEMOGLOBIN 9.7 g/dl (13.5-17.5); LYMPH # 0.7 10^3/uL (1.5-5.0); LYMPH % 12.2 % (24.0-44.0); MEAN CORPUSCULAR HEMOGLOBIN 25.7 pg (27.0-33.0); MEAN CORPUSCULAR HGB CONC 31.2 g/dl (32.0-36.5); MEAN CORPUSCULAR VOLUME 82.3 fl (80.0-96.0); MONO # 0.6 10^3/uL (0.0-0.8); MONO % 10.1 % (2.0-8.0); NEUTROPHILS # 4.3 10^3/uL (1.5-8.5); NEUTROPHILS % 74.7 % (36.0-66.0); PLATELET COUNT, AUTOMATED 243 10^3/uL (150-450); RED BLOOD COUNT 3.78 10^6/uL (4.30-6.10); WHITE BLOOD COUNT 5.7 10^3/uL (4.0-10.0)
[2023-12-21 06:36] LABS: INR 2.31; PROTHROMBIN TIME 24.6 SECONDS (12.5-14.5)
[2023-12-21 06:42] LABS: CALCIUM LEVEL 8.5 MG/DL (8.3-10.6); CREATININE FOR GFR 1.37 MG/DL (0.70-1.30); GLOMERULAR FILTRATION RATE 53.2 (>35); MAGNESIUM LEVEL 2.2 MG/DL (1.8-2.4); POTASSIUM SERUM 4.1 MMOL/L (3.5-5.1)
[2023-12-21 14:00] VITALS: BP 123/65; TEMP 97.7; O2SAT 95
[2023-12-21 20:00] VITALS: BP 134/71; TEMP 98.1; O2SAT 93
[2023-12-22 05:31] VITALS: BP 132/71; TEMP 98.1; O2SAT 95
[2023-12-22 06:42] LABS: BASO % 0.3 % (0.0-1.0); EOS # 0.1 10^3/uL (0.0-0.5); EOS % 2.2 % (0.0-3.0); HEMATOCRIT 32.7 % (42.0-52.0); HEMOGLOBIN 10.1 g/dl (13.5-17.5); LYMPH # 0.9 10^3/uL (1.5-5.0); LYMPH % 13.9 % (24.0-44.0); MEAN CORPUSCULAR HEMOGLOBIN 25.8 pg (27.0-33.0); MEAN CORPUSCULAR HGB CONC 30.9 g/dl (32.0-36.5); MEAN CORPUSCULAR VOLUME 83.4 fl (80.0-96.0); MONO # 0.7 10^3/uL (0.0-0.8); MONO % 10.5 % (2.0-8.0); NEUTROPHILS # 4.6 10^3/uL (1.5-8.5); NEUTROPHILS % 72.8 % (36.0-66.0); PLATELET COUNT, AUTOMATED 238 10^3/uL (150-450); RED BLOOD COUNT 3.92 10^6/uL (4.30-6.10); WHITE BLOOD COUNT 6.4 10^3/uL (4.0-10.0)
[2023-12-22 06:50] LABS: INR 2.3; PROTHROMBIN TIME 24.5 SECONDS (12.5-14.5)
[2023-12-22 07:02] LABS: CALCIUM LEVEL 8.6 MG/DL (8.3-10.6); CREATININE FOR GFR 1.36 MG/DL (0.70-1.30); GLOMERULAR FILTRATION RATE 53.7 (>35); MAGNESIUM LEVEL 2.3 MG/DL (1.8-2.4); POTASSIUM SERUM 4.3 MMOL/L (3.5-5.1)
[2023-12-22 14:00] VITALS: BP 132/72; TEMP 97; O2SAT 97
[2023-12-22] MEDS: SENNA 8.6 MG TAB (SENOKOT) PO SCH (16:21)
[2023-12-22] MEDS: WARFARIN SOD 5MG TAB PO SCH (16:22)
[2023-12-22 22:00] VITALS: BP 119/68; TEMP 97.9; O2SAT 94
[2023-12-23 06:00] VITALS: BP 136/65; TEMP 98.1; O2SAT 93
[2023-12-23 06:49] LABS: BASO % 0.5 % (0.0-1.0); EOS # 0.2 10^3/uL (0.0-0.5); EOS % 2.6 % (0.0-3.0); HEMATOCRIT 30.7 % (42.0-52.0); HEMOGLOBIN 9.6 g/dl (13.5-17.5); LYMPH # 0.8 10^3/uL (1.5-5.0); LYMPH % 12.4 % (24.0-44.0); MEAN CORPUSCULAR HEMOGLOBIN 25.9 pg (27.0-33.0); MEAN CORPUSCULAR HGB CONC 31.3 g/dl (32.0-36.5); MEAN CORPUSCULAR VOLUME 82.7 fl (80.0-96.0); MONO # 0.7 10^3/uL (0.0-0.8); MONO % 11.1 % (2.0-8.0); NEUTROPHILS # 4.5 10^3/uL (1.5-8.5); NEUTROPHILS % 73.1 % (36.0-66.0); PLATELET COUNT, AUTOMATED 226 10^3/uL (150-450); RED BLOOD COUNT 3.71 10^6/uL (4.30-6.10); WHITE BLOOD COUNT 6.2 10^3/uL (4.0-10.0)
[2023-12-23 07:00] LABS: INR 2.46; PROTHROMBIN TIME 25.8 SECONDS (12.5-14.5)
[2023-12-23 07:17] LABS: CALCIUM LEVEL 8.4 MG/DL (8.3-10.6); CREATININE FOR GFR 1.37 MG/DL (0.70-1.30); GLOMERULAR FILTRATION RATE 53.2 (>35); MAGNESIUM LEVEL 2.2 MG/DL (1.8-2.4); POTASSIUM SERUM 4.2 MMOL/L (3.5-5.1)
[2023-12-23 08:10] VITALS: BP 118/63
[2023-12-23] MEDS ORDERED: TORS20TA2 PO (09:43)
[2023-12-23] MEDS ORDERED: JANT5TAB PO (09:43)
== END 2023-12-23 11:45 | DRG 92 ==
LOC: M ED 13:09 → M ED INP 19:32 → M PCU 12-13 00:10 → OBSVTOIN 12-13 13:04 → M MSPAV 12-16 16:11
PROVIDERS: ADMIT Internal Medicine; ATTEND Internal Medicine
DX: R29.6 Repeated falls (principal); N17.9 Acute kidney failure, unspecified; S22.32XA Fracture of one rib, left side, initial encounter for closed fracture; I69.351 Hemiplegia and hemiparesis following cerebral infarction affecting right dominant side; I13.0 Hypertensive heart and chronic kidney disease with heart failure and stage 1 through stage 4 chronic kidney disease, or unspecified chronic kidney disease; I50.22 Chronic systolic (congestive) heart failure; N18.31 Chronic kidney disease, stage 3a; I48.0 Paroxysmal atrial fibrillation; I25.10 Atherosclerotic heart disease of native coronary artery without angina pectoris; E87.6 Hypokalemia; D64.9 Anemia, unspecified; R94.31 Abnormal electrocardiogram [ECG] [EKG]; T46.2X5A Adverse effect of other antidysrhythmic drugs, initial encounter; Z66 Do not resuscitate; K21.9 Gastro-esophageal reflux disease without esophagitis; I71.21 Aneurysm of the ascending aorta, without rupture; W18.11XA Fall from or off toilet without subsequent striking against object, initial encounter; Y93.E8 Activity, other personal hygiene; Y92.012 Bathroom of single-family (private) house as the place of occurrence of the external cause; Y99.8 Other external cause status; Z99.3 Dependence on wheelchair; R53.1 Weakness; R26.89 Other abnormalities of gait and mobility; F03.90 Unspecified dementia, unspecified severity, without behavioral disturbance, psychotic disturbance, mood disturbance, and anxiety; I25.5 Ischemic cardiomyopathy; R33.9 Retention of urine, unspecified; Z95.2 Presence of prosthetic heart valve; Z79.01 Long term (current) use of anticoagulants; Z79.899 Other long term (current) drug therapy

== ENCOUNTER → 2023-12-24 | Outpatient (REF) | payer MEDICARE ==
[~2023-12-24] MED LIST changes: +JANT5TAB PO
[2023-12-24 13:46] LABS: BASO % 0.2 % (0.0-1.0); EOS % 0.5 % (0.0-3.0); HEMATOCRIT 29.5 % (42.0-52.0); HEMOGLOBIN 9.3 g/dl (13.5-17.5); LYMPH # 0.6 10^3/uL (1.5-5.0); LYMPH % 7.4 % (24.0-44.0); MEAN CORPUSCULAR HEMOGLOBIN 26.2 pg (27.0-33.0); MEAN CORPUSCULAR HGB CONC 31.5 g/dl (32.0-36.5); MEAN CORPUSCULAR VOLUME 83.1 fl (80.0-96.0); MONO # 0.8 10^3/uL (0.0-0.8); MONO % 10.4 % (2.0-8.0); NEUTROPHILS # 6.6 10^3/uL (1.5-8.5); NEUTROPHILS % 81.3 % (36.0-66.0); PLATELET COUNT, AUTOMATED 213 10^3/uL (150-450); RED BLOOD COUNT 3.55 10^6/uL (4.30-6.10); WHITE BLOOD COUNT 8.1 10^3/uL (4.0-10.0)
[2023-12-24 13:50] LABS: ERYTHROCYTE SEDIMENTATION RATE 29 mm/hr (0-20)
[2023-12-24 14:17] LABS: URIC ACID 6.1 MG/DL (3.7-9.2)
[2023-12-24 14:18] LABS: C REACTIVE PROTEIN QUANTITATIV 3.5 MG/DL (<1.0)
[2023-12-24 17:30] LABS: APPEARANCE, URINE CLEAR (CLEAR); BACTERIA, URINE AUTO NEGATIVE (NEGATIVE); BILIRUBIN, URINE AUTO NEGATIVE (NEGATIVE); BLOOD, URINE BLOOD 1+ (NEGATIVE); COLOR, URINE STRAW (YELLOW); GLUCOSE, URINE (UA) AUTO NEGATIVE (NEGATIVE); KETONE, URINE AUTO NEGATIVE (NEGATIVE); LEUKOCYTE ESTERASE, URINE AUTO NEGATIVE (NEGATIVE); MUCUS, URINE SMALL (NEGATIVE); NITRITE, URINE AUTO NEGATIVE (NEGATIVE); PROTEIN, URINE AUTO NEGATIVE (NEGATIVE); RBC, URINE AUTO 4 /HPF (0-3); SPECIFIC GRAVITY URINE AUTO 1.009 (1.002-1.035); SQUAMOUS EPITHELIAL CELL UR AU 0 /HPF (0-6); UROBILINOGEN, URINE AUTO 0.2 mg/dL (0.0-2.0); WBC, URINE AUTO 1 /HPF (0-3)
== END ==
LOC: SKLAB7 12:58
PROVIDERS: ATTEND Internal Medicine
DX: R50.9 Fever, unspecified (principal); Z91.81 History of falling

== ENCOUNTER 2023-12-27 19:02 | Inpatient (IN) | payer MEDICARE ==
[~2023-12-27] VITALS: Ht 175.3 cm; Wt 93.9 kg
[2023-12-27 20:27] LABS: BASO % 0.2 % (0.0-1.0); EOS # 0.2 10^3/uL (0.0-0.5); EOS % 2.6 % (0.0-3.0); HEMATOCRIT 31.9 % (42.0-52.0); HEMOGLOBIN 10.1 g/dl (13.5-17.5); LYMPH # 0.6 10^3/uL (1.5-5.0); LYMPH % 6.6 % (24.0-44.0); MEAN CORPUSCULAR HEMOGLOBIN 25.7 pg (27.0-33.0); MEAN CORPUSCULAR HGB CONC 31.7 g/dl (32.0-36.5); MEAN CORPUSCULAR VOLUME 81.2 fl (80.0-96.0); MONO # 0.8 10^3/uL (0.0-0.8); MONO % 9.7 % (2.0-8.0); NEUTROPHILS # 6.8 10^3/uL (1.5-8.5); NEUTROPHILS % 80.5 % (36.0-66.0); PLATELET COUNT, AUTOMATED 189 10^3/uL (150-450); RED BLOOD COUNT 3.93 10^6/uL (4.30-6.10); WHITE BLOOD COUNT 8.5 10^3/uL (4.0-10.0)
[2023-12-27 20:37] LABS: INR 4.22
[2023-12-27 20:53] LABS: BLOOD UREA NITROGEN 27 MG/DL (9-23); CARBON DIOXIDE LEVEL 27 MMOL/L (20-31); CHLORIDE LEVEL 106 MMOL/L (98-107); CREATININE FOR GFR 1.19 MG/DL (0.70-1.30); GLOMERULAR FILTRATION RATE > 60.0 (>35); GLUCOSE, FASTING 119 MG/DL (74-106); POTASSIUM SERUM 4.4 MMOL/L (3.5-5.1); SODIUM LEVEL 140 MMOL/L (136-145)
[2023-12-27] MEDS ORDERED: ONDANSETRON 4MG TAB PO PRN (22:35)
[2023-12-27] MEDS ORDERED: NORCO, ANEXSIA 5/325MG TABLET (HYDROcodone/ACETAMINOPHEN) PO PRN (22:35)
[2023-12-27] MEDS: IPRATROPIUM 0.5MG/ALBUTEROL 2.5MG INH SOL UD 3ML (DUONEB) NEB PRN (23:05)
[2023-12-27] MEDS: NORCO, ANEXSIA 5/325MG TABLET (HYDROcodone/ACETAMINOPHEN) PO PRN (23:20)
[2023-12-28 00:25] VITALS: BP 137/70; TEMP 98.1; O2SAT 90
[2023-12-28] MEDS ORDERED: WARF-23 PO ×2 (01:25)
[2023-12-28] MEDS ORDERED: TORS20TA2 PO (01:25)
[2023-12-28] MEDS ORDERED: BISA10SU27 PR (01:25)
[2023-12-28] MEDS ORDERED: OXYC-517 PO (01:25)
[2023-12-28] MEDS ORDERED: MILKSUS3 PO (01:25)
[2023-12-28] MEDS ORDERED: ACET650T61 PO (01:25)
[2023-12-28] MEDS ORDERED: ACET-907 PO (01:25)
[2023-12-28] MEDS ORDERED: OMEP1CAP73 PO (01:25)
[2023-12-28] MEDS ORDERED: LIDO1PAD TOP (01:25)
[2023-12-28] MEDS ORDERED: SENN1TAB85 PO (01:25)
[2023-12-28] MEDS: IPRATROPIUM 0.5MG/ALBUTEROL 2.5MG INH SOL UD 3ML (DUONEB) NEB SCH (01:54)
[2023-12-28 04:27] VITALS: BP 132/69; TEMP 97.9; O2SAT 91
[2023-12-28 06:08] LABS: INR 3.88; PROTHROMBIN TIME 36.6 SECONDS (12.5-14.5)
[2023-12-28 08:30] LABS: BASO % 0.1 % (0.0-1.0); EOS # 0.3 10^3/uL (0.0-0.5); EOS % 3.7 % (0.0-3.0); HEMATOCRIT 31.4 % (42.0-52.0); HEMOGLOBIN 9.7 g/dl (13.5-17.5); LYMPH # 0.6 10^3/uL (1.5-5.0); LYMPH % 7.2 % (24.0-44.0); MEAN CORPUSCULAR HEMOGLOBIN 25.7 pg (27.0-33.0); MEAN CORPUSCULAR HGB CONC 30.9 g/dl (32.0-36.5); MEAN CORPUSCULAR VOLUME 83.3 fl (80.0-96.0); MONO # 0.9 10^3/uL (0.0-0.8); MONO % 11.2 % (2.0-8.0); NEUTROPHILS # 6.4 10^3/uL (1.5-8.5); NEUTROPHILS % 77.3 % (36.0-66.0); PLATELET COUNT, AUTOMATED 176 10^3/uL (150-450); RED BLOOD COUNT 3.77 10^6/uL (4.30-6.10); WHITE BLOOD COUNT 8.3 10^3/uL (4.0-10.0)
[2023-12-28 08:54] LABS: BLOOD UREA NITROGEN 24 MG/DL (9-23); CALCIUM LEVEL 8.4 MG/DL (8.3-10.6); CARBON DIOXIDE LEVEL 28 MMOL/L (20-31); CHLORIDE LEVEL 108 MMOL/L (98-107); CREATININE FOR GFR 1.16 MG/DL (0.70-1.30); GLOMERULAR FILTRATION RATE > 60.0 (>35); GLUCOSE, FASTING 104 MG/DL (74-106); POTASSIUM SERUM 3.9 MMOL/L (3.5-5.1); SODIUM LEVEL 143 MMOL/L (136-145)
[2023-12-28] MEDS: DOCUSATE SODIUM 100MG CAPSULE PO SCH (10:37)
[2023-12-28] MEDS: SENNA 8.6 MG TAB (SENOKOT) PO SCH (10:37)
[2023-12-28 12:00] VITALS: BP 118/48; TEMP 97.3; O2SAT 89
[2023-12-28] MEDS ORDERED: HOME MED LIST COMPLETE! XX SCH (14:20)
[2023-12-28] MEDS: TORSEMIDE 20 MG TAB PO SCH (16:57)
[2023-12-28] MEDS: AMIODARONE 200 MG TAB (PACERONE) PO SCH (16:57)
[2023-12-28] MEDS: PANTOPRAZOLE 40MG TAB (PROTONIX) PO SCH (16:57)
[2023-12-28] MEDS: ISOSORBIDE MON. (IMDUR) 30MG XR TAB PO SCH (16:58)
[2023-12-28 20:17] VITALS: BP 119/61; TEMP 97.7; O2SAT 90
[2023-12-28] MEDS: SENOKOT S TAB PO SCH (21:03)
[2023-12-28] MEDS: TAMSULOSIN 0.4 MG CAP PO SCH (21:04)
[2023-12-28] MEDS: ATORVASTATIN 20 MG TAB PO SCH (21:05)
[2023-12-28] MEDS: CARVedilol 12.5 MG TAB PO SCH (21:07)
[2023-12-29 04:26] VITALS: BP 135/69; TEMP 97.9; O2SAT 92
[2023-12-29 05:59] LABS: BASO % 0.3 % (0.0-1.0); EOS # 0.4 10^3/uL (0.0-0.5); EOS % 5.1 % (0.0-3.0); LYMPH # 0.8 10^3/uL (1.5-5.0); LYMPH % 10.1 % (24.0-44.0); MEAN CORPUSCULAR HEMOGLOBIN 25.1 pg (27.0-33.0); MONO # 1.1 10^3/uL (0.0-0.8); MONO % 14.4 % (2.0-8.0); NEUTROPHILS # 5.4 10^3/uL (1.5-8.5); NEUTROPHILS % 69.6 % (36.0-66.0); PLATELET COUNT, AUTOMATED 187 10^3/uL (150-450); RED BLOOD COUNT 3.58 10^6/uL (4.30-6.10); WHITE BLOOD COUNT 7.7 10^3/uL (4.0-10.0)
[2023-12-29 06:09] LABS: INR 3.52
[2023-12-29 06:29] LABS: ALBUMIN 2.2 G/DL (3.2-5.2); ALKALINE PHOSPHATASE 80 U/L (46-116); ALT/SGPT 23 U/L (7.0-40); AST/SGOT 21 U/L (<34); BILIRUBIN,TOTAL 0.5 MG/DL (0.3-1.2); BLOOD UREA NITROGEN 26 MG/DL (9-23); CALCIUM LEVEL 8.2 MG/DL (8.3-10.6); CARBON DIOXIDE LEVEL 28 MMOL/L (20-31); CHLORIDE LEVEL 105 MMOL/L (98-107); CREATININE FOR GFR 1.18 MG/DL (0.70-1.30); GLOMERULAR FILTRATION RATE > 60.0 (>35); GLUCOSE, FASTING 99 MG/DL (74-106); POTASSIUM SERUM 3.5 MMOL/L (3.5-5.1); SODIUM LEVEL 139 MMOL/L (136-145); TOTAL PROTEIN 5.4 G/DL (5.7-8.2)
[2023-12-29] MEDS ORDERED: OMEPRAZOLE 20MG CAP PO SCH (09:00)
[2023-12-29 09:57] VITALS: BP 133/65
[2023-12-29] MEDS: LIDOCAINE 5% (LIDODERM) PATCH TOP SCH (09:58)
[2023-12-29 12:00] VITALS: BP 121/61; TEMP 97.7; O2SAT 91
[2023-12-29] MEDS ORDERED: CARV25TA PO (12:13)
[2023-12-29] MEDS ORDERED: POTA1TAB23 PO (12:13)
== END 2023-12-29 13:05 | DRG 560 ==
LOC: EDBD 19:02 → M ED 19:02 → M ED INP 22:04 → M MSPAV 12-28 00:25
PROVIDERS: ADMIT Internal Medicine; ATTEND Internal Medicine
DX: M97.01XA Periprosthetic fracture around internal prosthetic right hip joint, initial encounter (principal); I69.351 Hemiplegia and hemiparesis following cerebral infarction affecting right dominant side; I13.0 Hypertensive heart and chronic kidney disease with heart failure and stage 1 through stage 4 chronic kidney disease, or unspecified chronic kidney disease; I50.32 Chronic diastolic (congestive) heart failure; R29.6 Repeated falls; F03.90 Unspecified dementia, unspecified severity, without behavioral disturbance, psychotic disturbance, mood disturbance, and anxiety; I25.10 Atherosclerotic heart disease of native coronary artery without angina pectoris; N18.2 Chronic kidney disease, stage 2 (mild); K21.9 Gastro-esophageal reflux disease without esophagitis; I71.20 Thoracic aortic aneurysm, without rupture, unspecified; R06.2 Wheezing; N40.1 Benign prostatic hyperplasia with lower urinary tract symptoms; J45.909 Unspecified asthma, uncomplicated; R39.9 Unspecified symptoms and signs involving the genitourinary system; M85.851 Other specified disorders of bone density and structure, right thigh; I48.0 Paroxysmal atrial fibrillation; Z66 Do not resuscitate; Z95.2 Presence of prosthetic heart valve; Z79.01 Long term (current) use of anticoagulants; Z79.899 Other long term (current) drug therapy; Z96.641 Presence of right artificial hip joint

== ENCOUNTER → 2024-01-02 | Outpatient (REF) ==
[~2024-01-02] MED LIST changes: +ACET-907 PO; +ACET650T61 PO; +BISA10SU27 PR; +LIDO1PAD TOP; +MILKSUS3 PO; +OMEP1CAP73 PO; +OXYC-517 PO; +SENN1TAB85 PO
[2024-01-02 08:55] LABS: BASO % 0.3 % (0.0-1.0); EOS # 0.5 10^3/uL (0.0-0.5); HEMATOCRIT 33.5 % (42.0-52.0); HEMOGLOBIN 10.2 g/dl (13.5-17.5); LYMPH # 0.5 10^3/uL (1.5-5.0); LYMPH % 5.8 % (24.0-44.0); MEAN CORPUSCULAR HEMOGLOBIN 25.1 pg (27.0-33.0); MEAN CORPUSCULAR HGB CONC 30.4 g/dl (32.0-36.5); MEAN CORPUSCULAR VOLUME 82.5 fl (80.0-96.0); MONO # 0.6 10^3/uL (0.0-0.8); NEUTROPHILS # 7.7 10^3/uL (1.5-8.5); NEUTROPHILS % 82.5 % (36.0-66.0); PLATELET COUNT, AUTOMATED 316 10^3/uL (150-450); RED BLOOD COUNT 4.06 10^6/uL (4.30-6.10); WHITE BLOOD COUNT 9.4 10^3/uL (4.0-10.0)
[2024-01-02 09:21] LABS: ALBUMIN 2.6 G/DL (3.2-5.2); ALKALINE PHOSPHATASE 111 U/L (46-116); ALT/SGPT 21 U/L (7.0-40); AST/SGOT 19 U/L (<34); BILIRUBIN,TOTAL 0.5 MG/DL (0.3-1.2); BLOOD UREA NITROGEN 24 MG/DL (9-23); CALCIUM LEVEL 8.6 MG/DL (8.3-10.6); CARBON DIOXIDE LEVEL 29 MMOL/L (20-31); CHLORIDE LEVEL 107 MMOL/L (98-107); CREATININE FOR GFR 1.12 MG/DL (0.70-1.30); GLOMERULAR FILTRATION RATE > 60.0 (>35); GLUCOSE, FASTING 144 MG/DL (74-106); POTASSIUM SERUM 4.2 MMOL/L (3.5-5.1); SODIUM LEVEL 141 MMOL/L (136-145); TOTAL PROTEIN 6.3 G/DL (5.7-8.2)
[2024-01-02 09:28] LABS: INR 2.87
== END ==
LOC: SKLAB4 07:47
PROVIDERS: ATTEND Internal Medicine
DX: R41.82 Altered mental status, unspecified (principal); Z95.2 Presence of prosthetic heart valve

== ENCOUNTER → 2024-01-04 | Outpatient (REF) | payer MEDICARE | LOC: M SOG 07:53 → EDSTATUS 10:37 | PROVIDERS: ATTEND Orthopaedic Surgery | DX: M79.604 Pain in right leg (principal) ==

== ENCOUNTER → 2024-01-05 | Outpatient (REF) | payer MEDICARE ==
[2024-01-05 14:02] LABS: HEMATOCRIT 28.7 % (42.0-52.0); HEMOGLOBIN 8.6 g/dl (13.5-17.5); MEAN CORPUSCULAR VOLUME 83.4 fl (80.0-96.0); PLATELET COUNT, AUTOMATED 362 10^3/uL (150-450); RED BLOOD COUNT 3.44 10^6/uL (4.30-6.10); WHITE BLOOD COUNT 8.5 10^3/uL (4.0-10.0)
[2024-01-05 14:04] LABS: INR 2.66; PROTHROMBIN TIME 27.3 SECONDS (12.5-14.5)
[2024-01-05 14:26] LABS: ALBUMIN 2.3 G/DL (3.2-5.2); ALKALINE PHOSPHATASE 132 U/L (46-116); ALT/SGPT 17 U/L (7.0-40); AST/SGOT 11 U/L (<34); BILIRUBIN,TOTAL 0.3 MG/DL (0.3-1.2); BLOOD UREA NITROGEN 23 MG/DL (9-23); CALCIUM LEVEL 7.9 MG/DL (8.3-10.6); CARBON DIOXIDE LEVEL 29 MMOL/L (20-31); CHLORIDE LEVEL 106 MMOL/L (98-107); CREATININE FOR GFR 1.23 MG/DL (0.70-1.30); GLOMERULAR FILTRATION RATE > 60.0 (>35); GLUCOSE, FASTING 88 MG/DL (74-106); POTASSIUM SERUM 4.5 MMOL/L (3.5-5.1); SODIUM LEVEL 141 MMOL/L (136-145); TOTAL PROTEIN 5.7 G/DL (5.7-8.2)
== END ==
LOC: SKLAB4 08:24
PROVIDERS: ATTEND Internal Medicine
DX: R41.82 Altered mental status, unspecified (principal); I50.9 Heart failure, unspecified

== ENCOUNTER 2024-01-09 03:01 | Emergency (ER) | payer MEDICARE ==
[~2024-01-09] VITALS: Ht 177.8 cm; Wt 95.0 kg
[2024-01-09] MEDS: FUROSEMIDE 40MG/4ML VIAL IV ONE (03:24)
[2024-01-09 03:34] LABS: ABG BASE EXCESS -2.9 (-2.0-2.0); ABG HCO3 24.5 MMOL/L (22.0-26.0); ABG O2 SATURATION 97.6 % (95.0-99.0); ABG PARTIAL PRESSURE CO2 56.6 mmHg (35.0-45.0); ABG PARTIAL PRESSURE O2 105.8 mmHg (75.0-100.0); ABG TOTAL CO2 26.2 MMOL/L (23.0-31.0); ABG pH (ARTERIAL) 7.254 UNITS (7.350-7.450)
[2024-01-09 04:00] LABS: BASO % 0.1 % (0.0-1.0); EOS % 0.1 % (0.0-3.0); HEMATOCRIT 30.2 % (42.0-52.0); HEMOGLOBIN 8.7 g/dl (13.5-17.5); LYMPH # 0.4 10^3/uL (1.5-5.0); LYMPH % 2.7 % (24.0-44.0); MEAN CORPUSCULAR HEMOGLOBIN 24.9 pg (27.0-33.0); MEAN CORPUSCULAR HGB CONC 28.8 g/dl (32.0-36.5); MEAN CORPUSCULAR VOLUME 86.3 fl (80.0-96.0); MONO % 6.3 % (2.0-8.0); NEUTROPHILS # 14.5 10^3/uL (1.5-8.5); NEUTROPHILS % 90.1 % (36.0-66.0); PLATELET COUNT, AUTOMATED 365 10^3/uL (150-450); WHITE BLOOD COUNT 16.1 10^3/uL (4.0-10.0)
[2024-01-09 04:14] LABS: CK-MB VALUE MASS < 1.0 NG/ML (<3.6)
[2024-01-09 04:16] LABS: CPK CREATINE PHOSPHOKINASE 75 U/L (46-171); MB/CK RELATIVE INDEX 1.33 (< OR =4)
[2024-01-09] MEDS: PIPERACILLIN/TAZOBACTAM SOD 4.5 GM in D5W MINI-BAG PLUS 50 ML IV ONE (04:40)
[2024-01-09] MEDS ORDERED: ISOVUE-370 76% 100ML VIAL As Ordered ONE (05:10)
[2024-01-09 05:14] LABS: VENOUS BASE EXCESS -0.3 (-2.0-2.0); VENOUS HCO3 27.9 MMOL/L (23.0-27.0); VENOUS O2 SATURATION 86.9 % (60.0-80.0); VENOUS PARTIAL PRESSURE CO2 65.9 mmHg (38.0-50.0); VENOUS PH 7.244 UNITS (7.330-7.430); VENOUS STANDARD HCO3 24.1 MMOL/L; VENOUS TOTAL CO2 29.9 MMOL/L (24.0-28.0)
[2024-01-09 05:20] LABS: ALBUMIN 2.6 G/DL (3.2-5.2); ALKALINE PHOSPHATASE 176 U/L (46-116); ALT/SGPT 34 U/L (7.0-40); AST/SGOT 25 U/L (<34); BILIRUBIN,DIRECT 0.1 MG/DL (<0.4); BILIRUBIN,TOTAL 0.3 MG/DL (0.3-1.2); BLOOD UREA NITROGEN 38 MG/DL (9-23); CALCIUM LEVEL 8.2 MG/DL (8.3-10.6); CARBON DIOXIDE LEVEL 30 MMOL/L (20-31); CHLORIDE LEVEL 110 MMOL/L (98-107); CREATININE FOR GFR 1.61 MG/DL (0.70-1.30); GLOMERULAR FILTRATION RATE 44.2 (>35); GLUCOSE, FASTING 144 MG/DL (74-106); POTASSIUM SERUM 5.9 MMOL/L (3.5-5.1); SODIUM LEVEL 145 MMOL/L (136-145); TOTAL PROTEIN 6.6 G/DL (5.7-8.2)
[2024-01-09 05:22] LABS: INR 2.51; PARTIAL THROMBOPLASTIN TIME 41.5 SECONDS (24.8-34.2); PROTHROMBIN TIME 26.2 SECONDS (12.5-14.5)
[2024-01-09 06:20] VITALS: O2SAT 97
[2024-01-09] MEDS: IPRATROPIUM 0.5MG/ALBUTEROL 2.5MG INH SOL UD 3ML (DUONEB) NEB SCH (06:24)
[2024-01-09 07:20] VITALS: TEMP 99.4
[2024-01-09] MEDS ORDERED: LORazepam 2 MG/ML 1ML VIAL IV PRN (07:50)
[2024-01-09] MEDS ORDERED: SCOPOLAMINE 1MG TRANSDERMAL PATCH TOP PRN (07:50)
[2024-01-09] MEDS: MORPHINE 2 MG/ML 1ML VIAL IV PRN (09:47)
[2024-01-09 10:00] VITALS: BP 143/62; O2SAT 74
== END 2024-01-09 11:01 | disposition home or self-care (01) ==
LOC: M ED 03:01
DX: J96.01 Acute respiratory failure with hypoxia (principal); J96.02 Acute respiratory failure with hypercapnia; I44.0 Atrioventricular block, first degree; I25.2 Old myocardial infarction; I25.119 Atherosclerotic heart disease of native coronary artery with unspecified angina pectoris; I48.91 Unspecified atrial fibrillation; I50.22 Chronic systolic (congestive) heart failure; I11.0 Hypertensive heart disease with heart failure; N18.9 Chronic kidney disease, unspecified; K21.9 Gastro-esophageal reflux disease without esophagitis; Z79.1 Long term (current) use of non-steroidal anti-inflammatories (NSAID); Z79.899 Other long term (current) drug therapy
CPT/HCPCS: 36600; 70450; 71045; 71275; 80047; 80048; 80076; 82550; 82553; 82803; 83605; 83880; 84484; 85025; 85610; 85730; 87486; 87581; 87633; 87798; 93005; 93041; 94640; 94760; 96365; 96366; 96374; 96375; 99285; J1940; J2543; Q9967